=== PATIENT | female | born 1995 | race Caucasian/White ===

== ENCOUNTER 2019-01-08 18:51 | Observation (INO) | payer OTHER, SELFPAY ==
[2019-01-08] VITALS (10 sets, daily range): BP systolic 107–127; BP diastolic 52–79; PULSE 70–105; RESP 16–18; TEMP 35.7–36.7; O2SAT 95–100; BMI 31.6; BMI 30.9
--- NOTE | 2019-01-08 16:00 | APP_PTH ---
PATIENT: JUSTO PETTIT LOC: MS3 U#:[id number] AGE/SX: 23/F ROOM: MS305 RE01/08/[address]: Dr. Carmen Gasca MD : 1995 BED: 1 DIS: 01/09/2019 SPEC #: [id number] RECD: 01/11/19 08:42 STATUS: SHAMEKA RENanci #: [id number] LATOYA: 01/08/19 16:[address]: Carmen Gasca DEPT: SURGICAL PATHOLOGY RECD BY: Cezar Gloria ENTERED: 01/11/19 09:34 SP TYPE: APPENDIX OTHR DR: Dr. Jarred Becker DO Tissues: Appendix, NOS Procedures: Surgery Specimen Level III HEADER OPERATION: Laparoscopic, appendectomy PRE-OP DIAGNOSIS: Acute appendicitis TISSUE SUBMITTED: Appendix MICROSCOPIC DIAGNOSIS Appendix: Acute appendicitis and periappendicitis. MORALES:yamile 01/12/19 MICROSCOPIC DESCRIPTION Slides are reviewed. GROSS DESCRIPTION Received is one container labeled with the patient's name and designated appendix. The specimen consists of an appendix measuring 3.5 cm in length and 0.7 cm in diameter. The attached periappendiceal adipose tissue measures up to 3 cm in width. The serosa shows focal area of congestion. No obvious perforation is identified. The lumen does not contain any fecalith. Venereal Disease Control Head sections are submitted in one cassette. / SJ:yamile 01/11/19 TC:2 CPT: 70031
--- NOTE | 2019-01-08 16:48 | PCM.HP.BLA ---
History and Physical Date of Admission: 01/08/19 Herminia Pinon [facility] 1995 ? ? REFERRING PHYSICIAN: Trey Gonzalez (Microarray Specialist), AP* ? CHIEF COMPLAINT: appendicitis ? HPI: The patient is a 23 year old female presents with sudden onset of abdominal pain starting at MDNT yesterday. Awoke patient from sleep. Had accompanying symptoms of chills and nausea. Denies burning with urination. Denies blood in stools. Denies previous episode of such pain. Went for evaluation to urgent care and CT scan was ordered. CT scan revealed dilated thickened appendix, c/w appendicitis. Patient referred to this office for further evaluation/treatment. ? ? PAST MEDICAL HISTORY denies major medical illnesses ? PAST SURGICAL HISTORY ? [place] teeth removal ? PAST INJURIES Denies head injuries, had finger fracture, wrist sprain ? ? Current Outpatient Medications: cyclobenzaprine (FLEXERIL) 10 mg tablet Take 1/2 -1 tablet every 8 hours as needed (Patient not taking: Reported on 01/08/2019 albuterol HFA (VENTOLIN HFA) 90 mcg/actuation inhaler Inhale 2 Puffs as instructed every 4 hours as needed for Wheezing/Shortness of Breath. (Patient not FLUoxetine HCl (PROZAC) 40 mg capsule ? SPRINTEC 0.25-35 mg-mcg per tablet ? ? ? ALLERGIES: Seasonal Allergies ? 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 FAMILY HISTORY ? Stroke Maternal Grandfather ? ? Heart Paternal Grandmother ? ? ? REVIEW OF SYSTEMS: General: The patient denies fatigue, denies weight loss, NOTES weight gain, NOTES feeling hot, and denies feelings of cold. Eyes: The patient denies glaucoma, NOTES eye injury/surgery, wears glasses or contacts. Ear/Nose/Throat: The patient NOTES allergies, denies hayfever, denies ear infections, and NOTES bloody noses. Cardiovascular: The patient denies chest pain, denies heart disease, denies high blood pressure,denies cardiac stent, denies prior heart attack, denies irregular heart beat, denies high cholesterol, denies poor circulation, denies heart failure, other cardiac issues, denies claudication, denies cold feet, denies peripheral arterial stent. Respiratory: The patient denies tuberculosis, denies pneumonia, denies frequent cough, denies pulmonary embolism, denies shortness of breath, and denies coughing up blood. Gastrointestinal: The patient denies difficulty swallowing, denies acid reflux, denies ulcers, denies vomiting, denies jaundice/hepatitis, denies gallbladder problems, NOTES black or tarry stools, NOTES hemorrhoids, NOTES bleeding from rectum, denies diverticulitis, NOTES constipation, NOTES diarrhea, denies loss of stool control, and denies hernias. Kidney/Bladder: The patient denies kidney stones, denies urine infections, and denies bloody urine. Skin: The patient denies a history of skin cancer, NOTES bleeding/changing moles, and NOTES a history of skin rash. Neurologic: The patient denies a history of epilepsy/convulsions, denies headaches, denies head/spinal injuries, and denies stroke/TIA. Psychiatric: The patient denies psychiatric medications, denies depression, and denies voices, denies substance abuse. Endocrine: The patient denies thyroid disorders, denies diabetes, and NOTES hormonal problems. Hematologic: The patient denies a history of bruising, denies bleeding, and denies anemia, denies blood clots. Infections: The patient denies a history of measles and mumps, denies rheumatic fever, and denies sexually transmitted diseases. Musculoskeletal: The patient NOTES back pain/injury, denies back problems, denies sciatica, denies knee/foot trouble, NOTES arthritis, or denies gout. ? PHYSICAL EXAMINATION: General: The patient is 23 year old female, well nourished, well hydrated in no acute distress. The patient is oriented to time, place, and person. VITALS: Blood pressure 122/66, pulse 76, temperature 36.1 ?C (97 ?F), temperature source Temporal Artery, resp. rate 16, weight 83.5 kg (184 lb), SpO2 100 % Head ? Normocephalic. EOM intact with sclera clear and no icterus noted. Wearing glasses. Mouth with mucus membranes moist. Neck - supple with no jugular venous distention noted. Trachea is midline. No masses noted. Lungs ? clear to auscultation. Normal breath sounds. No rales/rhonchi/wheezing noted. No labored breathing noted, such as retractions. No cough heard. Heart ? normal S1 and S2 auscultated. No rubs/clicks/murmurs noted. Regular rate. Abdomen ? soft but tender in the right lower quadrant with rebound and guarding and positive Rovsing's sign, decreased bowel sounds Extremities ? no calf tenderness noted. No pitting edema noted. Skin ? normal skin integrity. Neurological ? gait normal, no focal deficits noted Psych ? calm and appropriate RADIOLOGIC STUDIES: As Noted ? ? IMPRESSION: right lower quadrant abdominal pain, abnormal appendix by CT scan ? ? PLAN: I have discussed the above with the patient. I have offered laparoscopic appendectomy I have explained the procedure to the patient. I have counseled the patient as to the risks of the procedure, including but not limited to: infection, bleeding, injury to any blood vessels/nerves, scar tissue, injury to any intrabdominal organs, injury to bowel/bladder, intraabdominal abscess/bleeding, hernias at incisional sites, wound infections, complications of anesthesia, etc. ? the patient understands. The patient wishes to proceed. I have answered all questions to the patient?s satisfaction and the patient has no further questions. . Diagnoses: (R10.31) Right lower quadrant abdominal pain (primary encounter diagnosis) (R93.3) Abnormal CT scan, gastrointestinal tract Return to Clinic: The patient is instructed to follow-up with me after the procedure.
[2019-01-08 16:52] LABS: Internal QC Validated? YES +Cl - CLEAR BKGD; Pregnancy, Urine Negative Negative
[2019-01-08] MEDS: Lactated Ringers 1,000 ML 75 ML IV ×2 (17:07→19:33)
--- NOTE | 2019-01-08 17:45 | OP.PCM_ITS ---
Report of Operation Date of Procedure: 01/08/19 Pre-Operative Diagnosis: right lower quadrant abdominal pain, abnormal appendix on CT scan Post-Operative Diagnosis: appendicitis Surgery/Procedure Performed:: laparoscopic appendectomy Description of Surgical Findings:: dilated grossly enlarged appendix with fibrinous exudate - not perforated, no purulent peritoneal fluid noted Type of Anesthesia:: General Anesthesiologist: Anthony Kaufman Specimen's removed: appendix Estimated Blood Loss (mL): < 5 ml Fluids Replaced: 700 ml RL Description of Procedure: After informed consent was obtained, the patient was brought into the Operating Room. Appropriate time out protocol was followed. She was then placed in the supine position on the operating table. The patient was then placed under general anesthesia. The patient?s abdomen was then prepped with a sterile surgical skin preparation and sterile surgical drapes were placed. The infraumbilical skin fold was grasped with penetrating clamps and the skin and subcutaneous tissues were infiltrated with 0.25% marcaine with epinephrine. A s kin incision was then made. A Veress needle was then inserted into the intraabdominal cavity and checked to be in the proper position with a normal saline drop test. A CO2 pneumoperitoneum was then created. Once this was achieved, the Veress needle was removed and a 5 mm trocar was placed in its stead. A 5 mm laparoscope was then inserted into the trocar. Careful examination of the intraabdominal contents was then done. There was no evidence of injury to any internal organs from placement of the Veress needle or the trocar. Under direct visualization, a 12mm suprapubic trocar and a 5mm left lower quadrant trocar was then placed into the intraabdominal cavity. The skin and subcutaneous tissues at these sites were first infiltrated with 0.25% marcaine with epinephrine. Attention was then directed to the right lower quadrant. The appendix was visualized. It was grossly distended and appeared inflamed and irritated. There was no purulent fluid noted. The mesentery of the appendix was taken down by cauterizing the tissue from the free edge to the base of the appendix with the Harmonic scalpel device. Once the base of the appendix was freed of surrounding tissues, then the linear gastrointestinal stapling device was brought into the abdominal cavity via the 12mm port and placed across the base of the appendix. The stapling device was fired, thus stapling across the base of the appendix and transecting it simultaneously. The appendix was then placed in an Endobag and this was brought out through the suprapubic trocar. The appendix was then forwarded to Pathology for analysis. The appendiceal stump was carefully examined. There was no evidence of any active bleeding or fecal leakage. The surrounding tissues were also examined and there was no evidence of any active bleeding or fecal/bile leakage. Surgicel was applied to the appendiceal stump. The intraabdominal cavity was examined and there was no evidence of further inflammation or tissue abnormality. There was no evidence of any peritoneal fluid. The CO2 pneumoperitoneum was released and all trocars were removed intact. The suprapubic fascia was reapproximated with a figure-of-8 vicryl suture. All skin incisions were reapproximated with monocryl suture. Cavilon and steristrips were applied to reinforce skin closure and proper sterile dressings were placed. The patient was then extubated and brought to the Recovery Room in stable condition. - Complications none noted - Admit VTE Documentation VTE Present on Admission: Yes VTE Mechan Device Prophylaxis: SCD's
[2019-01-08] MEDS: Bupiv/Epi 0.25% 30 ML Vial (18:30)
--- NOTE | 2019-01-08 18:44 | DCINST_ITS ---
Discharge Diet: No Restrictions - drink plenty of fluids, avoid carbonated beverages for a couple of days Discharge Activity: Return to Normal Activity, May not drive while taking narcotic pain medications. Lifting Restrictions: no lifting/pushing/pulling greater than 20 pounds for 2 weeks Additional Activity Instructions:: ambulating/walking is encouraged. RETURN TO WORK - may return to work in several days or take up to two weeks off work Call your doctor if your incision/area has: Continuous Slow Oozing, Foul Smelling Discharge Call your doctor if you observe: Fever of 101 or Higher Additional Dressing/Incision Instructions:: Leave dressings in place. May get wet in the shower. do not soak - no tub baths/swimming Additional Instructions: Recommend pain medication regimen: take 650 mg of acetaminophen (Tylenol) then in three hours take 600 mg ibuprofen (Motrin), then in three hours take 650 mg acetaminophen, then in three hours take 600 mg ibuprofen, and so on Take narcotic pain medications for breakthrough pain and at night Medications to take at Discharge Fluoxetine HCl 40 mg PO DAILY 01/08/19 Hydrocodone Bitart/Apap 5-325 [[place] 5MG-325MG] 1 tab PO Q8H PRN PRN 5 Days #15 tab 01/08/19 Multivitamin with Minerals [Multiple Vitamin] 1 ea PO DAILY 01/08/19 Norgestimate-Ethinyl Estradiol [Previfem] 1 tab PO DAILY 01/08/19 Allergies/Adverse Reactions: Allergies No Known Allergies Allergy (Verified 01/08/19 16:35) The following prescriptions were given: Hydrocodone Bitart/Apap 5-325 [[place] 5MG-325MG] 1 tab PO Q8H PRN PRN 5 Days #15 tab PRN Reason: Mod-Severe Pain (-02/11) Prescription Printed Primary Care Physician: Jarred Becker DO [Primary Care Provider] - Test Results: Test results from this visit will be discussed in further detail at your follow- up appointment, if applicable. Please Follow Up With: Carmen Gasca MD - call When: to be seen in 7-10 days, please call for date and time, thank you
[2019-01-08] MEDS: Morphine 4 MG/ML Syringe IV (20:29)
[2019-01-08] MEDS: HYDROcodone Bitartrate/Apap 5/325 Tablet PO (20:54)
[2019-01-09 00:10] VITALS: BP 97/48; PULSE 89; RESP 16; TEMP 36.7; O2SAT 96
[2019-01-09] MEDS: HYDROcodone Bitartrate/Apap 5/325 Tablet PO ×2 (01:23→07:59)
[2019-01-09 05:00] VITALS: BP 109/61; PULSE 78; RESP 16; TEMP 36.7; O2SAT 99
[2019-01-09 07:45] VITALS: BP 108/66; PULSE 63; RESP 18; TEMP 36.6; O2SAT 100
[2019-01-09] MEDS: Ibuprofen 600 MG Tablet PO (07:58)
== END 2019-01-09 09:52 | disposition home or self-care (01) ==
LOC: SDC 01-11 10:21 → MS3 01-11 10:21
PROVIDERS: Anesthesiology; Admitting Provider Surgery; Family Provider Preventive Medicine Occupational Medicine; PCP Preventive Medicine Occupational Medicine; Referring Provider Surgery; Visit Provider Surgery
PROC: 0DTJ4ZZ Resection of Appendix, Percutaneous Endoscopic Approach (ICD-10-PCS; CPT 44970; principal; 2019-01-08 15:40)
DX: K35.80 Unspecified acute appendicitis (principal); F41.9 Anxiety disorder, unspecified; F32.9 Major depressive disorder, single episode, unspecified; J45.909 Unspecified asthma, uncomplicated
CPT/HCPCS: 44970; 81025; 88304; 96361; 96374; J7120; J2405

== ENCOUNTER → 2019-03-22 10:07 | Outpatient (CLI) | payer OTHER, SELFPAY ==
[2019-01-08 19:53] VITALS: BMI 30.9
[2019-03-22 12:44] LABS: Internal QC Validated? YES +Cl - CLEAR BKGD; Pregnancy, Serum, hCG Quali. NEGATIVE Negative
[2019-03-22 13:21] LABS: Ferritin 44 ng/mL (8-252); Follicle Stimulating Hormone 6.4 mIU/mL; T4 Free Direct 0.93 ng/dL (0.76-1.46); Thyroid Stim Hormone (TSH) 1.54 uIU/mL (0.358-3.74)
[2019-03-25 12:07] LABS: Testosterone, % Free 1.28 % (0.50-2.80); Testosterone, Free 0.35 ng/dL (0.10-0.85); Testosterone, Total 27 ng/dL (8-48); Thyroid Peroxidase AB 16 IU/mL (0-34)
[2019-03-25 13:39] LABS: Androstenedione 64 ng/dL (41-262); Sex Hormone-binding Globulin 131.2 nmol/L (24.6-122.0)
== END ==
PROVIDERS: Family Provider Family Medicine; PCP Family Medicine; Referring Provider Dermatology Pediatric Dermatology; Visit Provider Dermatology Pediatric Dermatology
DX: L30.9 Dermatitis, unspecified (principal); L64.8 Other androgenic alopecia; Q83.3 Accessory nipple
CPT/HCPCS: 36415; 82157; 82627; 82728; 83001; 84270; 84402; 84403; 84439; 84443; 84703; 86376; 82626

== ENCOUNTER 2019-12-15 17:59 | Emergency (ER) | payer OTHER, SELFPAY ==
[2019-01-08 19:53] VITALS: BMI 30.9
[2019-12-15 18:01] VITALS: BP 137/80; PULSE 87; RESP 15; TEMP 37; O2SAT 98; BMI 35.6
--- NOTE | 2019-12-15 18:16 | ED.DCSUM_ITS ---
History of Present Illness Chief Complaint: Bite Informant: Patient Narrative: Patient is a previously healthy 24-year-old female who presents to the emergency department for cat bite. 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 She states she was holding a cat during x-rays. The cat reached back and bit her right thumb. The cat latched on and they were having a difficult time getting it off. She is having pain in the thumb. Denies any loss of sensation. No foreign body sensation. No issues with moving the thumb. There are 2 puncture wounds present. Bleeding controlled prior to arrival in the emergency department. Denies any other injury. The thumb was wrapped. States that she rinsed out the thumb for a long time as well as put iodine solution on it. She denies any systemic symptoms. She denies being a diabetic. No immunosuppression noted. Past Medical History - Allergies and Home Meds Allergies/Adverse Reactions: Allergies No Known Allergies Allergy (Verified 01/08/19 16:35) Primary Care Physician: Angel Juan III, MD [Primary Care Provider] - Prior records reviewed: Yes Past Medical History: None Smoking Status: Never smoker Drugs: None Review of Systems All systems negative except as indicated General: Denies: Chills, Fever ENT: Denies: Rhinorrhea Cardiovascular: Denies: Chest pain Respiratory: Denies: Dyspnea, Cough Gastrointestinal: Denies: Abdominal pain, Nausea, Vomiting Musculoskeletal: Reports: Swelling, Extremity Pain. Denies: Neck pain, Back pain Skin: Reports: Wounds Neurological: Denies: Weakness, Parasthesia, Numbness Hematologic: Denies: Easy bruising, Easy bleeding Physical Exam Vital Signs/Narrative: Vital Signs Temp Pulse Resp BP Pulse Ox 12/15/19 18:01 98.6 F 87 15 137/80 H 98 Inital Vital Signs reviewed: Yes General: Well nourished, Well developed Head: Normocephalic, Atraumatic Eyes: Perrl, EOMI ENT: Moist mucous membranes Neck: Supple Cardiovascular: Regular rate, Regular rhythm Respiratory: No distress, CTA bilaterally Abdomen: Nondistended Back: Nontender Extremities: - - 2 puncture wounds to the pad of the right thumb. No active bleeding present. Has full range of motion. Foreign body is palpable. Sensation intact. Brisk capillary refill. Joint swelling. Skin: Normal color Neurological: Alert, Oriented x3 Psychological: Normal affect, Normal Mood Diagnostic/Tx/Re-eval - Medical Decision Making Patient presents to the emergency department for cat bite to right thumb. 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 Upon arrival to the ED vital signs within normal limits. She does have the 2 puncture wounds to the right thumb. Will treat with prophylactic antibiotics with Augmentin. Wound is cleaned with water and chlorhexidine. Biotic ointment placed over top of it and Band-Aid applied. She is to monitor for evidence of infection. Warning signs and symptoms for which to return to the emergency department including developing any significant joint pain with movement, swelling of the thumb, overlying warmth or erythema, streaking up the arm or developing any systemic symptoms are reviewed. She otherwise is to follow-up with her PCP. She understands and is agreeable this plan. Will discharge home in stable condition. ED Disposition - Plan for ED Patient: Disposition: Home or Assisted Living Diagnosis: Cat bite of right thumb Instructions: ED Bite Cat Prescriptions: Amox/Clavulanate Tablet [Augmentin Tablet] 875 mg PO Q12H 7 Days #14 tab Prescription Printed Referrals: Angel Juan III, MD [Primary Care Provider] -
[2019-12-15 19:10] VITALS: BP 126/75; PULSE 79; RESP 16
== END 2019-12-15 19:15 | disposition home or self-care (01) ==
LOC: ED 18:43
PROVIDERS: Emergency Provider Emergency Medicine; PCP Family Medicine
DX: S61.051A Open bite of right thumb without damage to nail, initial encounter (principal); S61.031A Puncture wound without foreign body of right thumb without damage to nail, initial encounter; W55.01XA Bitten by cat, initial encounter; Y93.K9 Activity, other involving animal care; Y92.89 Other specified places as the place of occurrence of the external cause; Y99.0 Civilian activity done for income or pay
CPT/HCPCS: 99282

== ENCOUNTER 2024-05-10 08:45 | Emergency (ER) | payer OTHER, SELFPAY ==
[2024-05-10 08:46] VITALS: BP 88/73; PULSE 103; RESP 16; TEMP 36.6; O2SAT 98; BMI 34.1
--- NOTE | 2024-05-10 08:53 | EX.ED.DYSGE1 ---
HPI History of Present Illness Chief Complaint: Nausea/Vomiting Detail of Chief Complaint: Nausea vomiting due to . Informant: patient and PCP (R[facility] [employer] called and per patient) Onset/Context/Timing Onset: Weeks (Nausea started May 01. Vomiting started approximately May 04) Context: Sudden Onset Timing: Continuous (With respect to the nausea) and Intermittent (With respect to the vomiting) Quality: Nausea and vomiting for the past several days Location: Hyperemesis gravidarum Current Severity: Moderate Maximum Severity: Moderate Worsened by: Relieved by: Nothing Associated Symptoms Associated Symptoms: Lightheadedness, thirst, dry mouth Narrative Narrative: Patient is a 28-year-old G1, P0 AB 0 woman who is approximately 8 weeks gestation who was sent in because of persistent nausea and vomiting. Last episode of nausea and vomiting had mild blood streaks noted. She denies black or maroon-colored stool. She denies coffee-ground emesis. She does endorse thirst, dry mouth and lightheadedness with standing. She did have streaks of blood last emesis. Patient denies fever, chills night sweats. She denies headache, visual, ocular auditory symptoms. She denies paresthesia, anesthesia or motor weakness. Prior similar symptoms: No Recent Illness/Hospitalization: No PFSH [facility] Medical History (Updated 05/10/24 @ 14:[address] Gael Salinas MD) Seasonal allergies Home Medications ?Medication ?Instructions ?Recorded ?Last Taken ?Type fluoxetine 40 mg capsule 40 mg PO DAILY 01/08/19 Unknown History multivitamin with minerals 1 ea PO DAILY 01/08/19 Unknown History norgestimate 0.25 mg-ethinyl 1 tab PO DAILY 01/08/19 Unknown History estradiol 35 mcg tablet ondansetron 4 mg disintegrating 4 mg PO Q8H PRN PRN Nausea #20 tabs 05/10/24 Unknown Rx tablet promethazine 25 mg rectal 25 mg UT Q6H PRN PRN Nausea #6 supp 05/10/24 Unknown Rx suppository (Promethegan) Allergy/AdvReac Type Severity Reaction Status Date / Time No Known Allergies Allergy Verified 12/23/19 07:17 Surgical History History of appendectomy History of wisdom tooth extraction Social History (Updated 05/10/24 @ 09:[address] Gael Salinas MD) household members: spouse Smoking Status: Never smoker ROS ROS ED Constitutional Constitutional ED: Denies chills, fever(s) or subjective Eyes Eyes: Denies blurry vision or change in vision ENT ENT ED: Denies rhinorrhea or sore throat Cardiovascular Cardiovascular: Denies chest pain or palpitations Respiratory/Chest Respiratory/Chest: Denies cough, dyspnea or dyspnea on exertion Gastrointestinal Gastrointestinal: Reports nausea, vomiting and other Details: Further detailed HPI narrative ; Denies abdominal pain, constipation, diarrhea or melena Genitourinary Genitourinary ED: Reports other Details: Patient endorses decreased urine output ; Denies dysuria, hematuria or urinary frequency Musculoskeletal Musculoskeletal: Denies arthralgias or myalgias Integumentary Denies rash Neurologic Neurologic: Denies headache(s) Hematologic/Lymphatic Hematologic/Lymphatic: Reports systems reviewed and no addt'l complaints, except as documented EXAM Physical Exam Const Vital Signs: 05/10/24 08:46 05/10/24 10:46 05/10/24 12:00 Temperature 97.9 F Temperature Source Temporal Pulse Rate 103 H 73 79 Respiratory Rate 16 18 20 H Blood Pressure 88/73 L 104/58 L 111/61 Blood Pressure Mean 78 73 77 Pulse Ox 98 98 98 Oxygen Delivery Method Room Air Room Air Room Air Positive well nourished and well developed Constitutional Narrative: BMI is 34.2. She appears slightly pale. Blood pressure is low. This was obtained when she was sitting out in triage. Blood pressure supine is 117. This would be consistent with orthostatic hypotension and reason she endorsed lightheadedness with standing. General Appearance ED: well developed, NAD and pallor; Negative for cyanotic or diaphoretic HEENT Reports dry mucous membranes HEENT Narrative: Head is atraumatic and normocephalic. Ears normal. Nares patent. Posterior pharynx is normal. Mouth ED: Yes dry mucous membranes Mouth: dry mucous membranes Eyes PERRL and EOMs intact bilaterally General Eye ED: Negative for pale conjunctiva or scleral icterus Neck no lymphadenopathy, supple and no JVD Resp normal respiratory effort and clear to auscultation bilaterally Cardio regular rhythm, S1 normal heart sound, S2 normal heart sound and no murmurs Rate: tachycardic GI normal to inspection, nondistended, normoactive bowel sounds, non-tender, non-distended and no masses; Negative for hepatosplenomegaly Back/Spine no CVA tenderness Extremity normal to inspection General Extremety ED: Negative for edema or tenderness General Extremity: Negative for edema Neuro oriented x3 and CN's II-XII intact bilaterally Neuro Narrative: Moves all extremities. Sensorium / Orientation: alert Psych mental status grossly normal Skin no rashes or lesions noted, no wounds and skin turgor normal General Skin Exam: pallor; Negative for jaundice MDM MDM MDM Narrative Medical decision making narrative: Patient presents with hyperemesis gravidarum. Clinically she is dehydrated with orthostatic hypotension. IV was established and received 1 L of normal saline. She was treated with Reglan since she is taking Zofran at home with no effect. Patient's history of vomiting with streaks of blood is consistent with Millie-Lo tear. Since she does not have black stool and this occurred after vomiting several times there is no need in my opinion at this time to place an NG to determine if she is actively bleeding. She was told this is a self-limiting issue 99% of the time. Urine was obtained to assess ketones and specific gravity. Lab Data Attestation: I reviewed the patient's lab results. Lab results narrative: Urine reveals ketones. Patient does have pyuria with bacteria. Since she is culture was sent and she was placed on cephalexin. When I went to assess patient she is actively vomiting and. She will receive the cephalexin. Will give dose of Rocephin and treat her nausea and vomiting with 25 mg of Benadryl mixed with 25 mg of Thorazine. Labs: Laboratory Results - last 24 hr 05/10/24 10:25 Urine Color Yellow Urine Clarity Sl. Cloudy Urine pH 6.5 Ur Specific [place] 1.015 Urine Protein 30 H Urine Glucose (UA) Normal Urine Ketones 150 A* Urine Occult Blood Negative Urine Nitrite Negative Urine Bilirubin 1 H Urine Urobilinogen 1 H Ur Leukocyte Esterase 500 H Urine RBC 0 SEEN Urine WBC 5-10 SEEN Ur Squamous Epith Cells 0-5 SEEN Urine Bacteria 1+ Urine Mucus 1+ Treatment and Re-Evaluation :: Nurse practitioner Светлана called in prior to patient's arrival. Deforms the patient had nausea vomiting. She is on Zofran. Concern was because she had some streaks of blood in emesis. Patient was reassessed at 1011. Her nausea has improved. She was informed of plan. Comments:: Patient was reassessed at 1354. She is sitting upright smiling. She has passed p.o. challenge. Will discharge with prescription for Zofran ODT, Compazine suppositories and appropriate home-going directions. Discharge Plan Triage Chief Complaint: Nausea/Vomiting Other Complaint: ED Provider: Gael Salinas Dx/Rx/DC Orders Clinical Impression: Hyperemesis gravidarum, Millie-Lo syndrome, Ketosis, Sinus tachycardia, Orthostatic hypotension, Hypovolemia Instructions: Millie-Lo Tear, ED Hyperemesis Gravidarum Prescriptions: New ondansetron 4 mg tablet,disintegrating 4 mg PO Q8H PRN PRN (Reason: Nausea) Qty: 20 0RF promethazine [Promethegan] 25 mg suppository 25 mg UT Q6H PRN PRN (Reason: Nausea) Qty: 6 0RF No Action fluoxetine 40 MG capsule 40 mg PO DAILY Patient Comments: TAKE 1 CAPSULE BY MOUTH EVERY DAY norgestimate-ethinyl estradiol 1 TABLET tablet 1 tab PO DAILY Patient Comments: TAKE 1 TABLET BY MOUTH EVERY DAY multivitamin with minerals 1 EACH tablet 1 ea PO DAILY Primary Care Provider: Светлана Srinivasan NP Referrals: Светлана Srinivasan NP, [employer] [Primary Care Provider] - As Needed Print Language: Peruvian Disposition Disposition: Home, Self Care
[2024-05-10] MEDS: Metoclopramide 10 MG/2 ML Vial 5 MG IV (09:24)
[2024-05-10] MEDS: 0.9% Normal Saline (1000mL) 1,000 ML 1000 ML IV (09:24)
[2024-05-10 10:36] LABS: Red Blood Cells-Urine 0 SEEN /hpf (0-5)
[2024-05-10 10:38] LABS: Color, Urine Yellow (Yellow); Glucose, Dipstick Normal (Normal); Leukocyte Esterase-Dipstick 500 /ul (Negative); Nitrite-Dipstick Negative (Negative); Occult Blood-Urine Negative /ul (Negative); Protein-Dipstick 30 mg/dl (Negative); Specific Gravity, Urine 1.015 (1.002-1.030); Urine Bilirubin Dipstick 1 mg/dL (Negative); Urine Clarity Sl. Cloudy (Clear); Urine Urobilinogen 1 mg/dl (Normal); Urine pH 6.5 (5.0 - 8.0)
[2024-05-10 10:39] LABS: Ketone-Dipstick 150 mg/dl (Negative)
[2024-05-10 10:46] VITALS: BP 104/58; PULSE 73; RESP 18; O2SAT 98
[2024-05-10 10:48] LABS: Bacteria 1+ /hpf (None Seen); Mucous, Urine 1+ /hpf (<or=2+); Squamous Epithelial Cells - UA 0-5 SEEN /hpf (5-10); White Blood Cells 5-10 SEEN /hpf (0-5)
[2024-05-10 12:00] VITALS: BP 111/61; PULSE 79; RESP 20; O2SAT 98
[2024-05-10] MEDS: DiphenhydrAMINE 25 MG, ChlorproMAZINE IM 25 MG in 0.9% Normal Saline (100mL Bag) 100 ML 203 MG IV (12:17)
[2024-05-10 14:00] VITALS: BP 106/78; PULSE 78; RESP 16; TEMP 37.1; O2SAT 98
[2024-05-10] MEDS: Cephalexin 250 MG Capsule 500 MG PO (14:22)
== END 2024-05-10 14:37 | disposition home or self-care (01) ==
PROVIDERS: Emergency Provider Emergency Medicine; PCP Registered Nurse; Visit Provider Emergency Medicine
DX: O21.1 Hyperemesis gravidarum with metabolic disturbance (principal); E88.89 Other specified metabolic disorders; O99.611 Diseases of the digestive system complicating pregnancy, first trimester; K22.6 Gastro-esophageal laceration-hemorrhage syndrome; O99.281 Endocrine, nutritional and metabolic diseases complicating pregnancy, first trimester; O26.891 Other specified pregnancy related conditions, first trimester; R00.0 Tachycardia, unspecified; O99.411 Diseases of the circulatory system complicating pregnancy, first trimester; I95.1 Orthostatic hypotension; E86.1 Hypovolemia; Z3A.08 8 weeks gestation of pregnancy
CPT/HCPCS: 81001; 87086; 87088; 96361; 96365; 96375; 99284

== ENCOUNTER 2024-06-18 09:29 | Emergency (ER) | payer OTHER, SELFPAY ==
[2024-06-18 09:29] VITALS: BP 115/59; PULSE 71; RESP 14; TEMP 36.6; O2SAT 100; BMI 33.3
--- NOTE | 2024-06-18 09:48 | ED.VIS.GI ---
HPI HPI - GI History of Present Illness Chief Complaint: Nausea/Vomiting Informant: patient Nausea/Vomiting/Emesis GI Symptom: Positive for Nausea and Vomiting Onset: Weeks Severity: Mild Diarrhea/Melena/Hematochezia GI Symptom: Negative for Diarrhea, Melena or Hematochezia Associated Symptoms Associated Symptoms: Negative for Dysuria, Frequency or Urgency Narrative Narrative: 28-year-old female G1, P0 Ab0 approximately 14 weeks . Due date is mid December. Seeing the [facility]. She has had nausea and vomiting intermittently for weeks. Denies any fever. No diarrhea. No dysuria. She came into day for nausea medication and IV fluids. Denies any abdominal pain. No vaginal bleeding. Otherwise the is going well. Prior similar symptoms: Yes Recent Illness/Hospitalization: No PFSH PFSH Medical History Seasonal allergies Home Medications ?Medication ?Instructions ?Recorded ?Last Taken ?Type fluoxetine 40 mg capsule 40 mg PO DAILY 01/08/19 Unknown History multivitamin with minerals 1 ea PO DAILY 01/08/19 Unknown History norgestimate 0.25 mg-ethinyl 1 tab PO DAILY 01/08/19 Unknown History estradiol 35 mcg tablet cephalexin 500 mg capsule 500 mg PO Q6 #28 CAPSULES 05/10/24 Unknown Rx ondansetron 4 mg disintegrating 4 mg PO Q8H PRN PRN Nausea #20 tabs 05/10/24 Unknown Rx tablet promethazine 25 mg rectal 25 mg SD Q6H PRN PRN Nausea #6 supp 05/10/24 Unknown Rx suppository (Promethegan) ondansetron 4 mg disintegrating 4 mg PO Q6H PRN nausea and 06/18/24 Unknown Rx tablet vomiting #14 tabs Allergy/AdvReac Type Severity Reaction Status Date / Time No Known Allergies Allergy Verified 06/18/24 09:30 Family History no significant family his Surgical History History of appendectomy History of wisdom tooth extraction Social History household members: spouse Smoking Status: Never smoker ROS ROS ED ROS Narrative Nausea and vomiting. No abdominal pain. No dysuria. No fever. No diarrhea. Constitutional Constitutional ED: Denies chills or fever(s) ENT ENT ED: Denies ear pain Cardiovascular Cardiovascular: Denies chest pain Respiratory/Chest Respiratory/Chest: Denies cough Gastrointestinal Gastrointestinal: Reports nausea and vomiting; Denies abdominal pain, constipation, diarrhea or melena Genitourinary Genitourinary ED: Denies dysuria or hematuria Musculoskeletal Musculoskeletal: Denies arthralgias or back pain Integumentary Denies abscess Neurologic Neurologic: Denies headache(s) Psychiatric Psychiatric: Denies anxiety Endocrine Endocrinology: Denies polydipsia Hematologic/Lymphatic Hematologic/Lymphatic: Denies easy bleeding, easy bruising or lymphadenopathy Allergic/Immunologic Allergic/Immunologic ED: Denies mouth swelling, tongue swelling or urticaria EXAM Physical Exam Narrative Exam Narrative: 28-year-old female vital signs stable afebrile. Sitting upright in bed. No distress. H EENT exam pupils round reactive light. Dry mucous membranes. Neck nontender no lymphadenopathy. Lungs clear to auscultation bilaterally. Heart regular rhythm rate about 70 no murmur. Abdomen soft, nontender, nondistended normal bowel sounds without peritoneal signs. Gravid nontender uterus. Moving all 4 extremities. Nontender no edema. Normal strength. Back nontender. Neurologically she is awake alert no focal motor deficits. Const Vital Signs: 06/18/24 09:29 Temperature 98 F Temperature Source Temporal Pulse Rate 71 Respiratory Rate 14 Blood Pressure 115/59 L Blood Pressure Mean 77 Pulse Ox 100 Oxygen Delivery Method Room Air Positive well nourished and well developed; Negative for cachectic, contractures or unkempt General Appearance ED: well developed and NAD; Negative for unkempt, cachectic, contractures or pallor Nutritional Appearance: Negative for cachectic HEENT Reports dry mucous membranes normocephalic and atraumatic; Negative for trauma or tenderness Mouth ED: Yes dry mucous membranes Mouth: dry mucous membranes Eyes PERRL and EOMs intact bilaterally General Eye ED: Negative for pale conjunctiva or scleral icterus Neck no lymphadenopathy, supple and no JVD General: Negative for tenderness Lymph Lymphatic: Negative for other Resp normal respiratory effort and clear to auscultation bilaterally Effort and Inspection: Negative for respiratory distress Auscultation: Negative for rales, rhonchi, wheezes or diminished lung sounds Cardio regular rate, regular rhythm, S1 normal heart sound, S2 normal heart sound and no murmurs Rate: Negative for bradycardia or tachycardic Rhythm: Negative for abnormal rhythm GI non-tender, non-distended and no masses Inspection: Negative for abdominal distention Auscultation: normoactive bowel sounds Palpation: soft; Negative for tender, guarding or rebound tenderness present Back/Spine no CVA tenderness General Back: Negative for CVA tenderness Cervical Spine: Negative for cervical spine tenderness Thoracic Spine / Upper Back: Negative for thoracic spinal tenderness Lumbar Spine / Lower Back: Negative for lumbar spinal tenderness Extremity full ROM General Extremety ED: Negative for edema or tenderness General Extremity: Negative for edema Neuro CN's II-XII intact bilaterally and moves all extremities Sensorium / Orientation: alert, oriented to person, oriented to place and oriented to time; Negative for orientation impaired or confused Motor Exam: strength 5/5 throughout Psych mental status grossly normal and thought process normal Appearance: Negative for unkempt Attitude: No agitated Mood & Affect: Negative for depressed, anxious or tearful Skin no wounds General Skin Exam: Negative for jaundice or pallor Lesions: no lesions Rashes: no rashes Trauma: Negative for abrasion Nails: Negative for discolored MDM MDM MDM Narrative Medical decision making narrative: 28-year-old female nausea vomiting for trimester . Clinically looks good. Abdomen benign. Should be treated with Zofran for nausea. A liter normal saline. Check her chemistries. And then she will be reassessed. P.o. fluids prior to discharge. While at 11:20 a.m.Repeat exam patient is doing 5 AM. Nausea resolved with Zofran. She is feeling better and comfort being discharged home. Abdomen is benign. History & Record Review Additional record(s) reviewed:: Prior inpatient record, Prior outpatient record, Prior ED visit and Prior labs Lab Data Attestation: I reviewed the patient's lab results. Lab results narrative: BMP shows no acute abnormality. Gap 7. Normal BUN of 7 creatinine 0.6. Glucose 83 Labs: Laboratory Results - last 24 hr 06/18/24 10:10 Sodium 138 Potassium 3.8 Chloride 107 Carbon Dioxide 25.0 Anion Gap 7 BUN 7 Creatinine 0.66 Estim Creat Clear Calc 136.19 Est GFR (MDRD) Af Amer 135 Est GFR (MDRD) Non-Af 112 BUN/Creatinine Ratio 10.5 Glucose 83 Calcium 9.3 Discharge Plan Triage Chief Complaint: Nausea/Vomiting ED Provider: Stanislaw Weber Dx/Rx/DC Orders Clinical Impression: Hyperemesis gravidarum Instructions: ED Hyperemesis Gravidarum Prescriptions: New ondansetron 4 mg tablet,disintegrating 4 mg PO Q6H PRN (Reason: nausea and vomiting) Qty: 14 0RF No Action fluoxetine 40 MG capsule 40 mg PO DAILY Patient Comments: TAKE 1 CAPSULE BY MOUTH EVERY DAY norgestimate-ethinyl estradiol 1 TABLET tablet 1 tab PO DAILY Patient Comments: TAKE 1 TABLET BY MOUTH EVERY DAY multivitamin with minerals 1 EACH tablet 1 ea PO DAILY ondansetron 4 mg tablet,disintegrating 4 mg PO Q8H PRN PRN (Reason: Nausea) Qty: 20 0RF promethazine [Promethegan] 25 mg suppository 25 mg SD Q6H PRN PRN (Reason: Nausea) Qty: 6 0RF cephalexin 500 mg capsule 500 mg PO Q6 Qty: 28 0RF Primary Care Provider: Светлана Srinivasan NP Referrals: Светлана Srinivasan NP, [facility] [Primary Care Provider] - As Needed Activity Restrictions/Additional Instructions: Plenty of fluids and rest. Slowly increase your diet as tolerated. Zofran as needed for nausea. Follow-up with your [employer] group as needed. Print Language: Malawian Disposition Disposition: Home, Self Care
[2024-06-18] MEDS: 0.9% Normal Saline (1000mL) 1,000 ML 1000 ML IV (10:12)
[2024-06-18] MEDS: Ondansetron 4 MG/2 ML Vial IV (10:12)
[2024-06-18 10:33] LABS: Anion Gap 7 (5-15); BUN 7 mg/dL (7-18); BUN/Creat Ratio 10.5 RATIO (10-20); Calcium,Total 9.3 mg/dL (8.5-10.1); Chloride 107 mmol/L (98-107); Creatinine, Serum 0.66 mg/dL (0.55-1.02); EST Glomerular Filtration Rate 112 mL/min (>60); Est Glom Filt Rate - Afr Amer 135 mL/min (>60); Estimated Creatinine Clearance 136.19 ml/min; Glucose 83 mg/dL (74-106); Potassium 3.8 mmol/L (3.5-5.1); Sodium Level 138 mmol/L (136-145)
[2024-06-18 11:32] VITALS: BP 123/78; PULSE 78; RESP 18; TEMP 36.8; O2SAT 97
== END 2024-06-18 11:35 | disposition home or self-care (01) ==
LOC: ED 10:02
PROVIDERS: Emergency Provider Emergency Medicine; PCP Registered Nurse; Visit Provider Emergency Medicine
DX: O21.0 Mild hyperemesis gravidarum (principal); Z3A.14 14 weeks gestation of pregnancy
CPT/HCPCS: 80048; 96361; 96374; 99282; J2405

== ENCOUNTER 2024-12-09 07:34 | Inpatient (IN) | payer OTHER, SELFPAY ==
[2024-12-09] VITALS (52 sets, daily range): BP systolic 112–153; BP diastolic 63–89; PULSE 60–114; RESP 13–18; TEMP 36.2–37.2; O2SAT 82–100; BMI 35.0
--- OUTSIDE RECORDS SUMMARY | 2024-12-09 06:31 | XMS RPT_ITS | CCD ---
Author Organization [facility] Care Team Providers Care Printed Circuit Board Preassembler Name Role Phone Mahad Riley Unavailable Unavail able Unavailable Primary Care Provider Unavailabl e Haagen SECURITY OPERATIONS CENTER ANALYST.PATTERN MARKING SUPERVISOR, Светлана Primary Care Provider [facility]agen SECURITY OPERATIONS CENTER ANALYST.PATTERN MARKING SUPERVISOR, Светлана Primary Care Provider Haagen SECURITY OPERATIONS CENTER ANALYST.PATTERN MARKING SUPERVISOR, Светлана Primary Care Provider Haagen SECURITY OPERATIONS CENTER ANALYST.PATTERN MARKING SUPERVISOR, Светлана Primary Care Provider Haagen SECURITY OPERATIONS CENTER ANALYST.PATTERN MARKING SUPERVISOR, Светлана Primary Care Provider Haagen SECURITY OPERATIONS CENTER ANALYST.PATTERN MARKING SUPERVISOR, Светлана Primary Care Provider Suppan SECURITY OPERATIONS CENTER ANALYST.PATTERN MARKING SUPERVISOR, Juliette A Unavailable [phone] Matt Rao MD Unavailable Suppan SECURITY OPERATIONS CENTER ANALYST.PATTERN MARKING SUPERVISOR, Juliette A Unavailable Suppan SECURITY OPERATIONS CENTER ANALYST.DANICA, Juliette A Unavailable [phone] Matt Rao MD Unavailable Haagen DIAMOND DIE POLISHER, Светлана Primary Care Unavailable Emilee Rose Attending Unavailable Emilee Rose Admitting Unavailable Gael Salinas Attending Unavailable Haagen DIAMOND DIE POLISHER, Светлана Primary Care Unavailable Haagen DIAMOND DIE POLISHER, Светлана Primary Care Unavailable Stanislaw Weber Attending Unavailable HAAGEN, СВЕТЛАНА Primary Care Unavailable DYAN COREY Attending Unavailable HAAGEN, СВЕТЛАНА Primary Care Unavailable HAAGENСВЕТЛАНА Attending Unavailable HAAGEN, СВЕТЛАНА Referring Unavailable HAAGEN, СВЕТЛАНА Primary Care Unavailable DYAN COREY Referring Unavailable DYAN COREY Attending Unavailable HAAGEN, СВЕТЛАНА Primary Care Unavailable EMILEE ROSE Referring Unavailable HAAGEN, СВЕТЛАНА Primary Care Unavailable HAAGEN, СВЕТЛАНА Primary Care Unavailable ROSE, EMILEE Attending Unavailable HAAGEN, СВЕТЛАНА Primary Care Unavailable ROSE, EMILEE Referring Unavailable DYAN COREY J Attending Unavailable MARYANA DYAN J Referring Unavailable HAAGEN, СВЕТЛАНА Primary Care Unavailable CANDIS BAEZ Attending Unavailabl e HAAGEN, СВЕТЛАНА Primary Care Unavailable HAAGEN, СВЕТЛАНА Primary Care Unavailable KENDY COLLINS Attending Unavailable ROSE, EMILEE Referring Unavailable HAAGEN, СВЕТЛАНА Primary Care Unavailable ROSE, EMILEE Referring Unavailable HAAGEN, СВЕТЛАНА Primary Care Unavailable ROSE, EMILEE Referring Unavailable NAYELI BOWMAN Attending Unavailable RAJGURU, DYAN J Referring Unavailable RAJGURU, DYAN J Attending Unavailable HAAGEN, СВЕТЛАНА Primary Care Unavailable HAAGEN, СВЕТЛАНА Primary Care Unavailable ROSE, EMILEE Referring Unavailable HAAGEN, СВЕТЛАНА Primary Care Unavailable DENISA BENTLEY Attending Unavailable HAAGEN, СВЕТЛАНА Primary Care Unavailable ROSE, EMILEE Referring Unavailable ESTHER MILLIGAN Attending Unavail able HAAGEN, СВЕТЛАНА Primary Care Unavailable ROSE, EMILEE Referring Unavailable KENDY COLLINS Attending Unavailable HAAGEN, СВЕТЛАНА Primary Care Unavailable ROSE, EMILEE Referring Unavailable HAAGEN, СВЕТЛАНА Primary Care Unavailable DENISA BENTLEY Attending Unavailable ROSE, EMILEE Referring Unavailable HAAGEN, СВЕТЛАНА Primary Care Unavailable DENISA BENTLEY Attending Unavailable HAAGEN, СВЕТЛАНА Primary Care Unavailable HAAGEN, СВЕТЛАНА Primary Care Unavailable ROSEGABYEMILEE Attending Unavailable ROSE, EMILEE Referring Unavailable HAAGEN, СВЕТЛАНА Primary Care Unavailable HAAGEN, СВЕТЛАНА Primary Care Unavailable DYAN COREY J Attending Unavailable MARYANA, DYAN J Referring Unavailable HAAGEN, СВЕТЛАНА Primary Care Unavailable ROSE, EMILEE Referring Unavailable VIDAL WILLIS Attending Unavailable HAAGEN, СВЕТЛАНА Primary Care Unavailable ROSE, EMILEE Referring Unavailable HAAGEN, СВЕТЛАНА Primary Care Unavailable NAYELI BOWMAN Attending Unavailable HAAGEN, СВЕТЛАНА Attending Unavailable HAAGEN, СВЕТЛАНА Primary Care Unavailable HAAGEN, СВЕТЛАНА Primary Care Unavailable DENISA BENTLEY Attending Unavailable HAAGEN, СВЕТЛАНА Primary Care Unavailable ROSE, EMILEE Referring Unavailable HAAGEN, СВЕТЛАНА Primary Care Unavailable ROSEEMILEE Attending Unavailable HAAGEN, СВЕТЛАНА Primary Care Unavailable ESTHER MILLIGAN Attending Unavail able Allergies Allergy Classification Reported Allergen(s) Allergy Type Date of Onset Reaction(s) Facility (20 sources) Seasonal allergy; Translations: [SEASONAL ALLERGIES] Allergy to substance 1 Other: See Comments [facility] Work Phone: Medications Current Medications Medication Drug Class(es) Dates Sig (Normalized) Sig (Original) acyclovir 400 mg oral tablet (4 sources) Herpesvirus Nucleoside Analog DNA Polymerase Inhibitor, Herpes Simplex Virus Nucleoside Analog DNA Polymerase Inhibitor, Herpes Zoster Virus Nucleoside Analog DNA Polymerase Inhibitor Start: 11-17-2024 End: 12-17-2024 take 1 tablet by mouth every eight hours acyclovir (ZOVIRAX) 400 mg tablet Take 1 tablet by mouth every 8 hours. 90 tablet 1 11/17/2024 12/17/2024 Active amoxicillin 875 mg / clavulanate 125 mg oral tablet (2 sources) Penicillin-class Antibacterial Start: 04-15-2023 End: 04-25-2023 take 1 tablet by mouth twice daily amoxicillin-clavu lanate potassium (AUGMENTIN) 875-125 mg per tablet Indications: Acute non-recurrent sinusitis, unspecified location Take 1 tablet by mouth two times a day for 10 days. 20 tablet 0 04/15/2023 04/25/2023 Active Start: 04-22-2022 End: 05-02-2022 take 1 tablet by mouth twice daily amoxicillin-clavulanic acid (AUGMENTIN) 875-125 mg per tablet Indications: Bacterial sinusitis Take 1 tablet by mouth twice daily for 10 days. 20 tablet 0 04/22/2022 05/02/2022 Active Comment on above: Take 1 tablet by yaniv th twice daily for 10 days. Take 1 tablet by yaniv th two times a day for 10 days. cefdinir 300 mg oral capsule (1 source) Cephalosporin Antibacterial Start: 08-29-19 End: 09-08-19 take 1 capsule by mouth twice daily cefdinir (OMNICEF) 300 mg capsule Indications: Bacterial sinusitis Take 1 capsule by mouth twice daily for 10 days. 20 capsule 0 08/28/2022 09/07/2022 Active Comment on above: Take 1 capsule by mo [facility] twice daily for 10 days. Docusate (16 sources) docusate sodium (COLACE ORAL) Take by mouth. Active doxycycline hyclate 100 mg oral tablet (1 source) Tetracycline-class Drug Start: 08-13-19 End: 08-23-19 take 1 tablet by mouth twice daily doxycycline (VIBRA-TABS) 100 mg tablet Indications: Bacterial sinusitis Take 1 tablet by mouth twice daily for 10 days. 20 tablet 0 08/12/2022 08/22/2022 Active Comment on above: Take 1 tablet by yaniv th twice daily for 10 days. Doxylamine (16 sources) doxylamine succinate (UNISOM, DOXYLAMINE, ORAL) Take by mouth. Active famotidine 20 mg oral tablet (16 sources) Histamine-2 Receptor Antagonist take 1 tablet by mouth twice daily before mealtime famotidine (PEPCID AC) 20 mg tablet Take 20 mg by mouth two times a day. Active fluconazole 150 mg oral tablet (2 sources) Azole Antifungal Start: 08-29-19 End: 08-29-19 fluconazole (DIFLUCAN) 150 mg tablet Indications: Candidiasis Take 1 tablet by mouth one time only for 1 dose. Repeat in 3 days as needed. 2 tablet 0 08/28/2022 08/28/2022 Active Start: 08-12-2022 End: 08-12-2022 fluconazole (DIFLUCAN) 150 m g tablet Indications: Candidiasis Take 1 tablet by mouth one time only for 1 dose. Repeat in 7 days as needed. 2 tablet 0 08/12/2022 08/12/2022 Active Comment on above: Take 1 tablet by yaniv th one time only for 1 dose. Repeat in 7 days as needed. Take 1 tablet by yaniv th one time only for 1 dose. Repeat in 3 days as needed. hydrocortisone 25 mg/ml topical cream (3 sources) Corticosteroid Start: End: hydrocortisone 2.5 % cream Indications: Eczema, unspecified type Apply 1 application to affected area twice daily for 14 days. Location: around eyes 28 g 1 07/26/2021 08/09/2021 Active Comment on above: Apply 1 application to affected area twice daily for 14 days. Location: around eyes hydrOXYzine hydrochloride 10 mg oral tablet (5 sources) Antihistamine Start: End: take 2 tablets by mouth every eight hours as needed hydrOXYzine HCl (ATARAX) 10 mg tablet Take 2 tablets by mouth three times a day as needed. 0 05/12/2023 06/11/2023 Active Start: 02-28-2023 End: 04-20-2023 take 1 tablet by mouth every eight hours as needed hydrOXYzine HCl (ATARAX) 10 mg tablet Take 1 tablet by mouth three times a day as needed. 90 tablet 0 03/21/2023 04/20/2023 Active Comment on above: Take 1 tablet by yaniv th three times a day as needed. Take 2 tablets by mo [facility] three times a day as needed. Loratadine (20 sources) LORATADINE ORAL Take by mouth. Active LORATADINE ORAL Take by mouth. 0 Active Comment on above: Take by mouth. omeprazole 40 mg delayed release oral capsule (16 sources) Proton Pump Inhibitor Start: take 1 capsule by mouth once daily omeprazole (PRILOSEC) 40 mg capsule Take 1 capsule by mouth once daily. 30 capsule 3 09/01/2024 Active ondansetron 4 mg oral tablet (20 sources) Serotonin-3 Receptor Antagonist Start: take 1 tablet by mouth every six hours as needed ondansetron (ZOFRAN) 4 mg tablet Take 1 tablet by mouth every 6 hours as needed for nausea/vomiting. 60 tablet 1 11/15/2024 Active Start: 08-23-2024 End: 11-13-2024 take 1 tablet by mouth every six hours as needed ondansetron (ZOFRAN) 4 mg tablet Take 1 tablet by mouth every 6 hours as needed for nausea/vomiting. 60 tablet 1 10/06/2024 11/13/2024 Discontinued Start: 07-12-2024 End: 08-23-2024 take 1 tablet by mouth every eight hours as needed ondansetron (ZOFRAN) 8 mg tablet Take 1 tablet by mouth every 8 hours as needed for nausea/vomiting. 30 tablet 1 08/12/2024 08/23/2024 Discontinued Start: 05-12-2024 End: 07-10-2024 take 1 tablet by mouth every eight hours as needed ondansetron (ZOFRAN) 8 mg tablet Take 1 tablet by mouth every 8 hours as needed for nausea/vomiting. 30 tablet 1 06/24/2024 07/10/2024 Discontinued Start: 06-16-2023 End: 05-12-2024 take 1 tablet by mouth every six hours as needed ondansetron orally disintegrating (ZOFRAN ODT) 4 mg disintegrating tablet Take 1 tablet by mouth every 6 hours as needed for nausea/vomiting. 20 tablet 06/16/2023 05/12/2024 Discontinued Comment on above: Take 1 tablet by yaniv th every 6 hours as needed for nausea/vomiting. PNV no.95/ferrous fum/folic ac ( ORAL) (20 sources) take 1 tablet by mouth once daily before mealtime PNV no.95/ferrous fum/folic ac ( ORAL) Take 1 tablet by mouth once daily. Active Polyethylene Glycols (16 sources) polyethylene gly col 3350 (MIRALAX ORAL) Take by mouth as needed. Active polyethylene gly col 3350 (MIRALAX ORAL) Take by mouth. Active pyridoxine HCl, vitamin B6, (VITAMIN B-6 ORAL) (20 sources) take 25 mg by mouth once daily pyridoxine HCl, vitamin B6, (VITAMIN B-6 ORAL) Take 25 mg by mouth once daily. Active valACYclovir 1000 mg oral tablet (20 sources) Herpesvirus Nucleoside Analog DNA Polymerase Inhibitor, Herpes Simplex Virus Nucleoside Analog DNA Polymerase Inhibitor, Herpes Zoster Virus Nucleoside Analog DNA Polymerase Inhibitor Start: 1 End: 2 take 1 tablet by mouth twice daily valACYclovir (VALTREX) 1 gram Indications: Recurrent cold sores Take 1 tablet by mouth twice daily. For cold sore outbreak 6 tablet 5 04/17/2022 Active Comment on above: Take 1 tablet by yaniv th twice daily. For cold sore outbreak Completed/Discontinued Medications Medication Drug Class(es) Dates Sig (Normalized) Sig (Original) [id number] 200 actuat albuterol 0.09 mg/actuat metered dose inhaler (20 sources) beta2-Adrenergic Agonist Start: 07-02-2016 End: 05-12-2024 take 2 puff(s) by inhalation every four hours as needed for wheezing albuterol HFA (VENTOLIN HFA) 90 mcg/actuation inhaler Indications: Exercise-induced asthma Inhale 2 Puffs as instructed every 4 hours as needed for Wheezing/Shortness of Breath. 1 Inhaler 07/02/2016 05/12/2024 Discontinued (Course of therapy completed) Comment on above: Inhale 2 Puffs as in structed every 4 hours as needed for Wheezing/Shortness of Breath. aspirin 81 mg delayed release oral tablet (20 sources) Platelet Aggregation Inhibitor, Nonsteroidal Anti-inflammatory Drug Start: 05-12-2024 End: 08-04-2024 take 1 tablet by mouth once daily aspirin, enteric coated (ECOTRIN LOW STRENGTH) 81 mg EC tablet Indications: Encounter for supervision of normal first in first trimester (HCC) , with uncertain dates, antepartum (HCC) Take 1 tablet by mouth once daily. 90 tablet 3 05/12/2024 08/04/2024 Discontinued Aspirin 81 mg ta b Take 81 mg by mouth. Active biotin 1 mg oral tablet (20 sources) Start: 12-23-2022 End: 05-12-2024 Biotin 1 mg tab Take 1 tablet by mouth. 12/23/2022 05/12/2024 Discontinued (Course of therapy completed) Comment on above: Take 1 tablet by yaniv th. brexpiprazole 0.25 mg oral tablet (8 sources) Atypical Antipsychotic Start: 03-07-2023 End: 03-21-2023 take 1 tablet by mouth once daily brexpiprazole (REXULTI) 0.25 mg tablet Take 1 tablet by mouth once daily. 30 tablet 0 03/07/2023 03/21/2023 Discontinued (Side Effects) Start: 08-12-2022 End: 02-12-2023 take 1 tablet by mouth once daily brexpiprazole (REXULTI) 0.5 mg tablet Indications: Moderate episode of recurrent major depressive disorder (HCC) Take 1 tablet by mouth once daily. 30 tablet 1 08/12/2022 02/12/2023 Discontinued (Other) Comment on above: Take 1 tablet by yaniv th once daily. 24 hr buPROPion hydrochloride 150 mg extended release oral tablet (1 source) Aminoketone Start: 021 End: 022 take 1 tablet by mouth once daily buPROPion XL (WELLBUTRIN XL) 150 mg 24 hr tablet Indications: Recurrent major depressive disorder, in remission ([facility]) Take 1 tablet by mouth once daily. 90 tablet 1 07/31/2020 07/26/2021 Discontinued Comment on above: Take 1 tablet by yaniv th once daily. cyclobenzaprine hydrochloride 10 mg oral tablet (20 sources) Muscle Relaxant Start: 01- End: take 1 tablet by mouth three times daily as needed for muscle spasms cyclobenzaprine (FLEXERIL) 10 mg tablet Indications: Headache, unspecified headache type , Neck pain Take 1 tablet by mouth three times a day as needed for muscle spasm. 30 tablet 05/19/2023 05/12/2024 Discontinued (Course of therapy completed) Comment on above: Take 1 tablet by yaniv th three times a day as needed for muscle spasm. 24 hr desvenlafaxine succinate 100 mg extended release oral tablet (20 sources) Serotonin and Norepinephrine Reuptake Inhibitor Start: End: take 1 tablet by mouth once daily desvenlafaxine ER (PRISTIQ) 100 mg 24 hr tablet Take 1 tablet by mouth once daily. 90 tablet 05/12/2024 08/03/2024 Discontinued (Other) Start: 02-12-2023 End: 12-04-2023 take 1 tablet by mouth once daily desvenlafaxine ER (PRISTIQ) 100 mg 24 hr tablet Take 1 tablet by mouth once daily. 90 tablet 0 09/05/2023 Active Start: 06-10-2022 End: 02-12-2023 take 1 tablet by mouth once daily desvenlafaxine ER (PRISTIQ) 50 mg 24 hr tablet Indications: Anxiety and depression Take 1 tablet by mouth once daily. 90 tablet 1 07/03/2022 02/12/2023 Discontinued Start: 02-22-2022 End: 06-08-2022 take 1 tablet by mouth once daily desvenlafaxine ER (PRISTIQ) 50 mg 24 hr tablet Indications: Anxiety and depression Take 1 tablet by mouth once daily. Decrease prozac to 20 mg daily. Increase pristiq to 50 mg daily. 30 tablet 1 04/17/2022 06/08/2022 Discontinued Start: 01-25-2022 End: 02-22-2022 take 1 tablet by mouth once daily desvenlafaxine ER (PRISTIQ) 25 mg 24 hr tablet Indications: Recurrent major depressive disorder, in remission (HCC) Take 1 tablet by mouth once daily. 30 tablet 2 01/25/2022 02/22/2022 Discontinued Comment on above: Take 1 tablet by yaniv th once daily. Take 1 tablet by yaniv th once daily. Decrease prozac to 20 mg daily. Increase pristiq to 50 mg daily. Ethinyl Estradiol / norgestimate (1 source) Progestin, Estrogen Start: 1 End: 2 take 1 tablet by mouth once daily norgestimate 0.25 mg-ethinyl estradiol 35 mcg (EVELIO) 0.25-35 mg-mcg per tablet Indications: Oral contraceptive prescribed Take 1 tablet by mouth once daily. 84 tablet 3 11/27/2020 07/26/2021 Discontinued Comment on above: Take 1 tablet by yaniv once daily. FLUoxetine 10 mg oral capsule (20 sources) Serotonin Reuptake Inhibitor Start: 2 End: 3 FLUoxetine (PROZAC) 10 mg capsule One pill by mouth daily X 1 week; then every other day until gone. 30 capsule 0 03/22/2022 06/10/2022 Discontinued Start: 02-22-2022 End: 03-05-2022 FLUoxetine (PROZAC) 20 mg ca psule Indications: Anxiety and depression Decrease prozac to 20 mg daily. Increase pristiq to 50 mg daily. 30 capsule 1 02/22/2022 03/05/2022 Discontinued Start: 01-10-2022 End: 02-22-2022 take 1 capsule by mouth once daily FLUoxetine (PROZAC) 40 mg capsule Indications: Recurrent major depressive disorder, in remission (HCC) Take 1 capsule by mouth once daily. 90 capsule 1 01/16/2022 02/22/2022 Discontinued (Other) Start: 11-09-2021 take 2 capsules by [facility] once daily FLUoxetine (PROZAC) 10 mg capsule Indications: Recurrent major depressive disorder, in remission (HCC) Take two capsules by mouth daily. 180 capsule 3 11/09/2021 Active Start: 09-26-2021 End: 11-09-2021 FLUoxetine (PROZAC) 10 mg ca psule Indications: Recurrent major depressive disorder, in remission (HCC) Take one capsule on day 1-14 of cycle. Take two capsules on day 14-28 of cycle. 135 capsule 3 10/31/2021 11/09/2021 Discontinued Start: 07-26-2021 End: 10-24-2021 take 1 capsule by mouth once daily FLUoxetine HCl (PROZAC) 20 mg capsule Indications: Recurrent major depressive disorder, in remission (HCC) Take 1 capsule by mouth once daily. 30 capsule 2 07/26/2021 10/24/2021 Active Start: 04-03-2021 End: 07-26-2021 take 1 capsule by mouth once daily FLUoxetine HCl (PROZAC) 40 mg capsule Indications: Recurrent major depressive disorder, in remission (HCC) Take 1 capsule by mouth once daily. 30 capsule 5 04/03/2021 07/26/2021 Discontinued Comment on above: Take 1 capsule by [facility] once daily. Take one capsule on day 1-14 of cycle. Take two capsules on day 14-28 of cycle. Take two capsules by mouth daily. Decrease prozac to 2 0 mg daily. Increase pristiq to 50 mg daily. One pill by mouth da myrtle X 1 week; then every other day until gone. fluticasone propionate 0.05 mg/actuat metered dose nasal spray (20 sources) Corticosteroid Start: End: take 2 spray(s) by mouth once daily fluticasone (FLONASE) 50 mcg/actuation nasal spray Indications: Bacterial sinusitis Use 2 Sprays in each nostril once daily. Rinse mouth after use. 1 Bottle 1 06/10/2019 05/12/2024 Discontinued (Course of therapy completed) Comment on above: Use 2 Sprays in each nostril once daily. Rinse mouth after use. lamoTRIgine 100 mg disintegrating oral tablet (20 sources) Mood Stabilizer, Anti-epileptic Agent Start: End: take 1 tablet by mouth once daily lamoTRIgine orally disintegrating (LAMICTAL ODT) 100 mg disintegrating tablet Take 1 tablet by mouth once daily. 30 tablet 1 06/01/2024 08/03/2024 Discontinued (Other) Start: 12-15-2023 End: 06-27-2024 take 1 tablet by mouth once daily lamoTRIgine (LAMICTAL) 100 mg tablet Take 1 tablet by mouth once daily. 90 tablet 03/29/2024 06/01/2024 Discontinued (Side Effects) Start: 09-05-2023 End: 11-04-2023 take 1 tablet by mouth once daily lamoTRIgine (LAMICTAL) 100 mg tablet Take 1 tablet by mouth once daily. Start after completing 30 days of 3.5 tablets of 25 mg Lamictal. 30 tablet 1 09/05/2023 Active Start: 09-05-2023 End: 12-12-2023 take 3.5 tablets by mouth once daily lamoTRIgine (LAMICTAL) 25 mg tablet Take 3.5 tablets by mouth once daily. 105 tablet 0 09/05/2023 12/12/2023 Discontinued (Course of therapy completed) Start: 07-07-2023 End: 09-05-2023 take 2.5 tablets by mouth once daily, then take 3 tablets by mouth once daily lamoTRIgine (LAMICTAL) 25 mg tablet Take 2.5 tablets by mouth once daily for 30 days, THEN 3 tablets once daily. 165 tablet 0 07/07/2023 09/05/2023 Discontinued Start: 05-12-2023 End: 07-11-2023 take 1.5 tablets by mouth once daily, then take 2 tablets by mouth once daily lamoTRIgine (LAMICTAL) 25 mg tablet Take 1.5 tablets by mouth once daily for 30 days, THEN 2 tablets once daily. 105 tablet 0 05/12/2023 07/07/2023 Discontinued Start: 02-12-2023 End: 05-12-2023 take 1 tablet by mouth once daily lamoTRIgine (LAMICTAL) 25 mg tablet Take 1 tablet by mouth once daily. 30 tablet 0 03/21/2023 05/12/2023 Discontinued Comment on above: Take 1 tablet by yaniv th once daily for 14 days, THEN 2 tablets once daily for 14 days, THEN 3 tablets once daily for 14 days. Take 1 tablet by yaniv th once daily. Take 1.5 tablets by mouth once daily for 30 days, THEN 2 tablets once daily. Take 2.5 tablets by mouth once daily for 30 days, THEN 3 tablets once daily. ijxyxlmi-fpoy-LF-calci um-mins (ONE-A-DAY WOMENS FORMULA) 18 mg iron-400 mcg-500 mg Ca tab (12 sources) ykkvzijr-jpin-YN -calcium-m ins (ONE-A-DAY WOMENS FORMULA) 18 mg iron-400 mcg-500 mg Ca tab gaocroak-tcxq-WS-calci um-mins 18 mg iron-400 mcg-500 mg Ca tab (20 sources) End: 05-12-2024 edjcwqpa-jhss-BR-calcium-m ins 18 mg iron-400 mcg-500 mg Ca tab 05/12/2024 Discontinued (Course of therapy completed) ylqpieup-fxep-VC -calcium-mins 18 mg iron-400 mcg-500 mg Ca tab Active irflqjwc-iuyc-MH -calcium-mins 18 mg iron-400 mcg-500 mg Ca tab Multivitamin preparation (20 sources) End: 05-12-2024 multivitamin (OPTIVITE P.M.T . ORAL) 05/12/2024 Discontinued (Course of therapy completed) multivitamin (OP TIVITE P.M.T. ORAL) Active multivitamin (OP TIVITE P.M.T. ORAL) mupirocin 0.02 mg/mg topical ointment (4 sources) RNA Synthetase Inhibitor Antibacterial Start: 09-01-2023 End: 09-08-2023 mupirocin (BACTROBAN) 2 % ointment Indications: Sore in nose Apply to affected area three times a day for 7 days. 15 g 0 09/01/2023 09/08/2023 Start: 04-15-2023 End: 04-22-2023 mupirocin (BACTROBAN) 2 % oi ntment Indications: Sore in nose Apply to affected area three times a day for 7 days. 15 g 0 04/15/2023 04/22/2023 Active Comment on above: Apply to affected ar ea three times a day for 7 days. naproxen sodium 220 mg oral tablet (20 sources) Nonsteroidal Anti-inflammatory Drug Start: End: take 1 tablet by mouth twice daily at mealtime naproxen sodium (ALEVE) 220 mg tablet Take 1 tablet by mouth two times a day with meals. TAKE WITH FOOD 02/10/2023 05/06/2024 Discontinued (Discontinued by Patient) Start: 05-10-2019 End: 07-26-2021 take 1 tablet by mouth twice daily at mealtime naproxen (NAPROSYN) 500 mg tablet Indications: Muscle strain of left shoulder region, initial encounter , Strain of neck muscle, initial encounter Take 1 tablet by mouth twice daily with meals. Take with food. 20 tablet 0 05/10/2019 07/26/2021 Discontinued Comment on above: Take 1 tablet by yaniv th twice daily with meals. Take with food. Take 1 tablet by yaniv th two times a day with meals. TAKE WITH FOOD predniSONE 20 mg oral tablet (3 sources) Start: 05-19-19 End: 07-07-19 take 2 tablets by mouth once daily predniSONE (DELTASONE) 20 mg tablet Indications: Headache, unspecified headache type Take 2 tablets by mouth once daily. 10 tablet 0 05/19/2023 07/07/2023 Discontinued (Course of therapy completed) Comment on above: Take 2 tablets by mo uth once daily. promethazine hydrochloride 12.5 mg rectal suppository (20 sources) Phenothiazine Start: 05-07-19 End: 10-14-19 take 12.5 mg rectal route every six hours as needed promethazine (PHENERGAN) 12.5 mg suppository 1 Suppository by RECTAL route every 6 hours as needed for nausea/vomiting. 12 Suppository 05/07/2024 10/13/2024 Discontinued (Course of therapy completed) Vitamin B Complex (20 sources) Start: 12-24-19 End: 05-12-19 take 1 tablet by mouth once daily vitamin b complex tab Take 1 tablet by mouth once daily. 12/23/2022 05/12/2024 Discontinued (Course of therapy completed) Start: 12-23-2022 take 1 tablet by yaniv th once daily vitamin b complex tab Take 1 tablet by mouth once daily. 12/23/2022 Active Start: 12-23-2022 take 1 tablet by yaniv th once daily vitamin b complex tab Take 1 tablet by mouth once daily. 0 12/23/2022 Active Comment on above: Take 1 tablet by yaniv th once daily. Problems Active Problems Problem Classification Problem Date Documented Da te Episodic/Chronic Administrative/social admission (2 sources) Stress; Translations: [Other specified problems related to psychosocial circumstances] 03-29-2024 Episodic Allergic reactions (1 source) Eczema; Translations: [Dermatitis, unspecified] Episodic Anxiety disorders (20 sources) Mixed anxiety and depressive disorder; Translations: [Anxiety disorder, unspecified] Onset: 1 07-28-2020 Chronic Contraceptive and procreative management (2 sources) Patient encounter status; Translations: [Encounter for other general counseling and advice on contraception] 04-15-2023 Episodic Esophageal disorders (1 source) Gastroesophageal reflux disease; Translations: [Gastro-esophageal reflux disease without esophagitis] 06-16-2023 Chronic Immunizations and screening for infectious disease (2 sources) Vaccination needed; Translations: [Encounter for immunization] Onset: 5 09-28-2024 Episodic Mood disorders (20 sources) Recurrent major depression in remission; Translations: [Major depressive disorder, recurrent, in remission, unspecified] Onset: 9 Chronic Mood disorders (1 source) Mood disorders; Translations: [Anxiety and depression] Onset: 5 Mycoses (2 sources) Candidiasis; Translations: [Candidiasis, unspecified] Episodic Nausea and vomiting (1 source) Nausea; Translations: [Nausea] 06-16-2023 Episodic Other aftercare (3 sources) Long-term current use of drug therapy; 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] 03-29-2024 Episodic Other circulatory disease (2 sources) Respiratory symptom; Translations: [Other specified symptoms and signs involving the circulatory and respiratory systems] Episodic Other complications of (13 sources) Maternal obesity complicating , childbirth and the puerperium, antepartum; Translations: [Obesity complicating , second trimester] 08-04-2024 Chronic Other complications of (1 source) Obesity complicating , third trimester; Translations: [Obesity affecting in third trimester, unspecified obesity type (HCC)] Onset: 5 Chronic Other complications of (2 sources) Obesity complicating , unspecified trimester; Translations: [Obesity in (HCC)] Onset: 5 Chronic Other complications of (1 source) Obesity complicating , second trimester; Translations: [Obesity affecting in second trimester, unspecified obesity type (HCC)] Onset: 5 Chronic Other complications of (1 source) Morning sickness; Translations: [Mild hyperemesis gravidarum] 05-10-2024 Episodic Other complications of (1 source) Supervision of high risk , unspecified, third trimester; Translations: [Supervision of high risk in third trimester (HCC)] Onset: 5 Episodic Other complications of (1 source) Supervision of high risk , unspecified, second trimester; Translations: [Supervision of high risk in second trimester (HCC)] Onset: 5 Episodic Other connective tissue disease (1 source) Pain of bilateral hands; Translations: [Pain in right hand] 12-23-2022 Episodic Other connective tissue disease (1 source) Medial epicondylitis of left humerus; Translations: [Medial epicondylitis, left elbow] 10-06-2023 Episodic Other ear and sense organ disorders (1 source) Ear canal finding; Translations: [Other specified disorders of external ear, bilateral] 10-06-2023 Episodic Other ear and sense organ disorders (1 source) Bilateral earache; Translations: [Otalgia, bilateral] 10-06-2023 Episodic Other gastrointestinal disorders (1 source) Acute constipation; Translations: [Constipation, unspecified] 01-27-2024 Episodic Other nervous system disorders (1 source) Numbness and tingling sensation of skin; Translations: [Anesthesia of skin] Episodic Other nervous system disorders (1 source) Cold extremity; Translations: [Unspecified disturbances of skin sensation] Episodic Other non-traumatic joint disorders (1 source) Pain in right shoulder; Translations: [Pain in joint, shoulder region] 12-23-2022 Episodic Other nutritional; endocrine; and metabolic disorders (1 source) Hypercalcemia; Translations: [Hypercalcemia] Chronic Other nutritional; endocrine; and metabolic disorders (20 sources) Obesity; Translations: [Obesity, unspecified] Onset: 5 08-08-2023 Chronic Other screening for suspected conditions (not mental disorders or infectious disease) (8 sources) Cancer cervix screening status; Translations: [Encounter for screening for malignant neoplasm of cervix] Onset: 5 Episodic Other upper respiratory disease (2 sources) Lesion of nose; Translations: [Other specified disorders of nose and nasal sinuses] 04-15-2023 Episodic Other upper respiratory infections (3 sources) Bacterial sinusitis; Translations: [Chronic sinusitis, unspecified] Chronic Residual codes; unclassified (1 source) Gestation period, 8 weeks; Translations: [8 weeks gestation of ] 05-06-2024 Episodic Residual codes; unclassified (1 source) Gestation period, 11 weeks; Translations: [11 weeks gestation of ] 06-09-2024 Episodic Residual codes; unclassified (2 sources) Gestation period, 12 weeks; Translations: [12 weeks gestation of ] 06-09-2024 Episodic Residual codes; unclassified (1 source) Gestation period, 14 weeks; Translations: [14 weeks gestation of ] 06-22-2024 Episodic Residual codes; unclassified (2 sources) Gestation period, 16 weeks; Translations: [16 weeks gestation of ] 07-07-2024 Episodic Residual codes; unclassified (3 sources) Gestation period, 20 weeks; Translations: [20 weeks gestation of ] 08-03-2024 Episodic Residual codes; unclassified (1 source) Gestation period, 24 weeks; Translations: [24 weeks gestation of ] 09-01-2024 Episodic Residual codes; unclassified (2 sources) Gestation period, 25 weeks; Translations: [25 weeks gestation of ] 09-07-2024 Episodic Residual codes; unclassified (1 source) Gestation period, 28 weeks; Translations: [28 weeks gestation of ] 09-28-2024 Episodic Residual codes; unclassified (1 source) Gestation period, 30 weeks; Translations: [30 weeks gestation of ] 10-13-2024 Episodic Residual codes; unclassified (1 source) Gestation period, 32 weeks; Translations: [32 weeks gestation of ] 10-21-2024 Episodic Residual codes; unclassified (1 source) Gestation period, 33 weeks; Translations: [33 weeks gestation of ] 11-02-2024 Episodic Residual codes; unclassified (1 source) Gestation period, 35 weeks; Translations: [35 weeks gestation of ] 11-17-2024 Episodic Residual codes; unclassified (2 sources) Gestation period, 37 weeks; Translations: [37 weeks gestation of ] 11-25-2024 Episodic Residual codes; unclassified (1 source) 37 weeks gestation of ; Translations: [37 weeks gestation of (HCC)] Onset: Episodic Residual codes; unclassified (1 source) 35 weeks gestation of ; Translations: [35 weeks gestation of (HCC)] Onset: Episodic Residual codes; unclassified (1 source) 33 weeks gestation of ; Translations: [33 weeks gestation of (HCC)] Onset: 07-01-202 5 Episodic Residual codes; unclassified (1 source) 32 weeks gestation of ; Translations: [32 weeks gestation of (HCC)] Onset: 5 Episodic Residual codes; unclassified (1 source) 30 weeks gestation of ; Translations: [30 weeks gestation of ([facility])] Onset: 5 Episodic Residual codes; unclassified (1 source) 28 weeks gestation of ; Translations: [28 weeks gestation of ([facility])] Onset: 5 Episodic Residual codes; unclassified (1 source) 24 weeks gestation of ; Translations: [24 weeks gestation of ([facility])] Onset: 5 Episodic Residual codes; unclassified (1 source) 25 weeks gestation of ; Translations: [25 weeks gestation of ([facility])] Onset: 5 Episodic Spondylosis; intervertebral disc disorders; other back problems (2 sources) Low back pain; Translations: [Low back pain, unspecified back pain laterality, unspecified chronicity, unspecified whether sciatica present] 06-16-2023 Episodic Sprains and strains (1 source) Strain of back muscle; Translations: [Strain of muscle, fascia and tendon of lower back, subsequent encounter] 10-06-2023 Episodic Unclassified (1 source) Unknown / UNK(Unknown) Onset: 7 Unclassified (20 sources) [facility] Education - COMMON Onset: 5 05-12-2024 Unclassified (20 sources) Education - [place] Onset: 5 05-12-2024 Unclassified (1 source) Long-term current use of drug therapy 08-03-2024 Unclassified (1 source) Rubella non-immune status, antepartum ([facility]); Translations: [Rubella non-immune status, antepartum ([facility])] Onset: 5 Unclassified (1 source) History of suicide attempt; Translations: [History of suicide attempt] Onset: 5 Past or Other Problems Problem Classification Problem Date Documented Da te Episodic/Chronic Conditions associated with dizziness or vertigo (20 sources) Lightheadedness; Translations: [Dizziness and giddiness] Onset: 09-06-2019 09-06-2019 Episodic Other complications of (20 sources) Vomiting of , unspecified; Translations: [Unspecified vomiting of , unspecified as to episode of care or not applicable] Onset: 05-12-2024 05-06-2024 Episodic Other complications of (20 sources) High risk ; Translations: [Supervision of high risk , unspecified, first trimester] Onset: 05-12-2024 05-12-2024 Episodic Other complications of (20 sources) Rubella non-immune; Translations: [Supervision of other high risk pregnancies, unspecified trimester] Onset: 06-14-2024 06-14-2024 Episodic Other complications of (2 sources) Mild hyperemesis gravidarum; Translations: [Mild hyperemesis gravidarum] Onset: 05-10-2024 Episodic Other complications of (1 source) Hyperemesis gravidarum with metabolic disturbance; Translations: [Hyperemesis gravidarum with metabolic disturbance] Onset: 06-03-2024 Episodic Other complications of (1 source) Supervision of other high risk pregnancies, unspecified trimester; Translations: [Rubella non-immune status, antepartum (HCC)] Onset: 06-14-2024 Episodic Other complications of (1 source) Supervision of high risk , unspecified, first trimester; Translations: [Supervision of high risk in first trimester] Onset: 05-12-2024 Episodic Other gastrointestinal disorders (1 source) Constipation, unspecified; Translations: [Acute constipation] Onset: 01-27-2024 Episodic Other and delivery including normal (9 sources) Normal ; Translations: [Encounter for supervision of normal first , first trimester] Onset: 05-12-2024 05-11-2024 Episodic Other upper respiratory infections (3 sources) Acute sinusitis; Translations: [Acute sinusitis, unspecified] Onset: 06-16-2024 04-15-2023 Episodic Residual codes; unclassified (1 source) 20 weeks gestation of ; Translations: [20 weeks gestation of (HCC)] Onset: 08-04-2024 Episodic Screening and history of mental health and substance abuse codes (20 sources) H/O: attempted suicide; Translations: [History of suicide attempt] Onset: 05-12-2024 05-12-2024 Episodic Unclassified (1 source) LEFT THUMB LAC Onset: 02-06-2017 Viral infection (20 sources) Herpes simplex; Translations: [Herpesviral infection, unspecified] Onset: 01-21-2019 01-21-2019 Episodic Results Test Name Value Interpretation Reference Range Facil ity URINE OB DIP B/Oon 5 Glucose Ql (U) Negative Neg mg/dL [facility] Protein.monoclonal (U) [Mass/Vol] 100 mg/dL Neg [facility] URINE OB DIP B/Oon 5 Glucose Ql (U) Negative Neg mg/dL [facility] Interpretation and review of laboratory results Normal [facility] Protein.monoclonal (U) [Mass/Vol] Negative Neg mg/dL [facility] Examination level ultrasound on 11-18-2024 [facility] Examination level ultrasound on 11-17-2024 Radiology Study observation (narrative) [facility] ROUTINE, GROUP B ST REPTOCOCCUS BY PCRon 11-17-2024 ROUTINE, GROUP B STREPTOCOCCUS BY PCR Not detected Normal [facility] Comment on above: Performed By: #### G BPCR ####[id number] [place] [address] [place] URINE OB DIP B/Oon 5 Glucose Ql (U) Negative Neg mg/dL [facility] Interpretation and review of laboratory results Normal [facility] Protein.monoclonal (U) [Mass/Vol] Negative Neg mg/dL [facility] Examination level ultrasound on 10-22-2024 [facility] Examination level ultrasound on 10-21-2024 Radiology Study observation (narrative) [facility] CBC W Auto Differential pane l (Bld)on 09-28-2024 Basophils (Bld) [#/Vol] 10*3/uL Normal <0.11 [facility] Comment on above: Order Comment: Speci men Type: BLOOD SPECIMEN Ordering Facility: [facility] Address: [address] [place] [address] Performed By: #### 5 7021-8 #### [facility] CLIA [id number] [address] [place] [address] [place] Basophils/100 WBC (Bld) 0.3 % Normal [facility] Comment on above: Order Comment: Speci men Type: BLOOD SPECIMEN Ordering Facility: [facility] Address: [address] [place] [address] Performed By: #### 5 7021-8 #### [facility] CLIA [id number] [address] [place] [address] [place] Differential cell count method Nom (Bld) Auto Normal [facility] Comment on above: Order Comment: Speci men Type: BLOOD SPECIMEN Ordering Facility: [facility] Address: [address] [place] [address] Performed By: #### 5 7021-8 #### [facility] CLIA [id number] [address] [place] [address] [place] Eosinophils (Bld) [#/Vol] 0.06 10*3/uL Normal <0.46 [facility] Comment on above: Order Comment: Speci men Type: BLOOD SPECIMEN Ordering Facility: [facility] Address: [address] [place] [address] Performed By: #### 5 7021-8 #### [facility] CLIA [id number] [address] [place] [address] [place] Eosinophils/100 WBC (Bld) 0.8 % Normal [facility] Comment on above: Order Comment: Speci men Type: BLOOD SPECIMEN Ordering Facility: [facility] Address: [address] [place] [address] Performed By: #### 5 7021-8 #### [facility] CLIA [id number] [address] [place] [address] [place] Erythrocyte distribution width (RBC) [Ratio] 14.1 % Normal 11.5-15.0 [facility] Comment on above: Order Comment: Speci men Type: BLOOD SPECIMEN Ordering Facility: [facility] Address: [address] [place] [address] Performed By: #### 5 7021-8 #### [facility] CLIA [id number] [address] [place] [address] [place] Hematocrit (Bld) [Volume fraction] 36.5 % Normal 36.0-46.0 [facility] Comment on above: Order Comment: Speci men Type: BLOOD SPECIMEN Ordering Facility: [facility] Address: [address] [place] [address] Performed By: #### 5 7021-8 #### [facility] CLIA [id number] [address] [place] [address] [place] Hemoglobin (Bld) [Mass/Vol] 11.7 g/dL Normal 11.5-15.5 [facility] Comment on above: Order Comment: Speci men Type: BLOOD SPECIMEN Ordering Facility: [facility] Address: [address] [place] [address] Performed By: #### 5 7021-8 #### [facility] CLIA [id number] [address] [place] [address] [place] Immature granulocytes (Bld) [#/Vol] 0.05 10*3/uL Normal <0.10 [facility] Comment on above: Order Comment: Speci men Type: BLOOD SPECIMEN Ordering Facility: [facility] Address: [address] [place] [address] Performed By: #### 5 7021-8 #### [facility] CLIA [id number] [address] [place] [address] [place] Immature granulocytes/100 WBC (Bld) 0.6 % Normal [facility] Comment on above: Order Comment: Speci men Type: BLOOD SPECIMEN Ordering Facility: [facility] Address: [address] [place] [address] Performed By: #### 5 7021-8 #### [facility] CLIA [id number] [address] [place] [address] [place] Lymphocytes (Bld) [#/Vol] 1.36 10*3/uL Normal 1.00-4.00 [facility] Comment on above: Order Comment: Speci men Type: BLOOD SPECIMEN Ordering Facility: [facility] Address: [address] [place] [address] Performed By: #### 5 7021-8 #### [facility] CLIA [id number] [address] [place] [address] [place] Lymphocytes/100 WBC (Bld) 17.4 % Normal [facility] Comment on above: Order Comment: Speci men Type: BLOOD SPECIMEN Ordering Facility: [facility] Address: [address] [place] [address] Performed By: #### 5 7021-8 #### [facility] CLIA [id number] [address] [place] [address] [place] MCH (RBC) [Entitic mass] 28.0 pg Normal 26.0-34.0 [facility] Comment on above: Order Comment: Speci men Type: BLOOD SPECIMEN Ordering Facility: [facility] Address: [address] [place] [address] Performed By: #### 5 7021-8 #### [facility] CLIA [id number] [address] [place] [address] [place] MCHC (RBC) [Mass/Vol] 32.1 g/dL Normal 30.5-36.0 [facility] Comment on above: Order Comment: Speci men Type: BLOOD SPECIMEN Ordering Facility: [facility] Address: [address] [place] [address] Performed By: #### 5 7021-8 #### [facility] CLIA [id number] [address] [place] [address] [place] MCV (RBC) [Entitic vol] 87.3 fL Normal 80.0-100.0 [facility] Comment on above: Order Comment: Speci men Type: BLOOD SPECIMEN Ordering Facility: [facility] Address: [address] [place] [address] Performed By: #### 5 7021-8 #### [facility] CLIA [id number] [address] [place] [address] [place] Monocytes (Bld) [#/Vol] 0.48 10*3/uL Normal <0.87 [facility] Comment on above: Order Comment: Speci men Type: BLOOD SPECIMEN Ordering Facility: [facility] Address: [address] [place] [address] Performed By: #### 5 7021-8 #### [facility] CLIA [id number] [address] [place] [address] [place] Monocytes/100 WBC (Bld) 6.1 % Normal [facility] Comment on above: Order Comment: Speci men Type: BLOOD SPECIMEN Ordering Facility: [facility] Address: [address] [place] [address] Performed By: #### 5 7021-8 #### [facility] CLIA [id number] [address] [place] [address] [place] Neutrophils (Bld) [#/Vol] 5.85 10*3/uL Normal 1.45-7.50 [facility] Comment on above: Order Comment: Speci men Type: BLOOD SPECIMEN Ordering Facility: [facility] Address: [address] [place] [address] Performed By: #### 5 7021-8 #### [facility] CLIA [id number] [address] [place] [address] [place] Neutrophils/100 WBC (Bld) 74.8 % Normal [facility] Comment on above: Order Comment: Speci men Type: BLOOD SPECIMEN Ordering Facility: [facility] Address: [address] [place] [address] Performed By: #### 5 7021-8 #### [facility] CLIA [id number] [address] [place] [address] [place] Nucleated RBC (Bld) [#/Vol] 10*3/uL Normal <0.01 [facility] Comment on above: Order Comment: Speci men Type: BLOOD SPECIMEN Ordering Facility: [facility] Address: [address] [place] [address] Performed By: #### 5 7021-8 #### [facility] CLIA [id number] [address] [place] [address] [place] Nucleated RBC/100 WBC (Bld) [Ratio] 0.0 /100 WBC Normal [facility] Comment on above: Order Comment: Speci men Type: BLOOD SPECIMEN Ordering Facility: [facility] Address: [address] [place] [address] Performed By: #### 5 7021-8 #### [facility] CLIA [id number] [address] [place] [address] [place] Platelet mean volume (Bld) [Entitic vol] 10.0 fL Normal 9.0-12.7 [facility] Comment on above: Order Comment: Speci men Type: BLOOD SPECIMEN Ordering Facility: [facility] Address: [address] [place] [address] Performed By: #### 5 7021-8 #### [facility] CLIA [id number] [address] [place] [address] [place] Platelets (Bld) [#/Vol] 278 10*3/uL Normal 150-400 [facility] Comment on above: Order Comment: Speci men Type: BLOOD SPECIMEN Ordering Facility: [facility] Address: [address] [place] [address] Performed By: #### 5 7021-8 #### [facility] CLIA [id number] [address] [place] [address] [place] RBC (Bld) [#/Vol] 4.18 10*6/uL Normal 3.90-5.20 [facility] Comment on above: Order Comment: Speci men Type: BLOOD SPECIMEN Ordering Facility: [facility] Address: [address] [place] [address] Performed By: #### 5 7021-8 #### [facility] CLIA [id number] [address] [place] [address] [place] WBC (Bld) [#/Vol] 7.82 10*3/uL Normal 3.70-11.00 [facility] Comment on above: Order Comment: Speci men Type: BLOOD SPECIMEN Ordering Facility: [facility] Address: [address] [place] [address] Performed By: #### 5 7021-8 #### [facility] CLIA [id number] [address] [place] [address] [place] GESTATIONAL GLUCOSE SCREEN, 1-HOUR, 50 GRAM, NON-FASTINGon 09-28-2024 Glucose [Mass/Vol] 121 mg/dL Normal 74-134 [facility] Comment on above: Order Comment: Speci men Type: BLOOD SPECIMENOrdering Facility: [facility] Address: [address] [place] [address] Result Comment: [facility] Congress of Obstetricians and Gynecologists (Yasemin/Kwame) guidelines state a gestational diabetes mellitus positive screen is made, in women not previously diagnosed with overt diabetes, when the 1 hr plasma glucose level is equal to or above 140 mg/dL. The [facility] N[facility] Specialist and [facility] [place] recommends a 135 mg/dL cutoff. Performed By: #### G LTGST ####[facility] [id number] [place] [address] [place] Reagin and Treponema pallidu m IgG and IgM [Interp]on 09-28-2024 T. pallidum IgG+IgM IA Ql (S) Non-Reactive Normal Nonreactive [facility] Comment on above: Order Comment: Speci men Type: BLOOD SPECIMEN Ordering Facility: [facility] Address: [address] [place] [address] Performed By: #### L [id number] #### [facility] CLIA [id number] [address] [place] [address] [place] Reagin+T pallidum IgG+IgM Se rPl-Impon 09-28-2024 Reagin and Treponema pallidum IgG and IgM [Interp] Cannot exclude recent Treponemal infection if specimen collected within 7-10 days after appearance of suspect lesions or 2-3 weeks after an exposure. Clinical correlation is required. Normal [facility] Comment on above: Order Comment: Speci men Type: BLOOD SPECIMEN Ordering Facility: [facility] Address: [address] [place] [address] Performed By: #### L [id number] #### [facility] CLIA [id number] [address] [place] [address] [place] Examination level ultrasound on 08-05-2024 Indication Detailed anatomic survey Maternal obesity, BMI >35 Impression REMOTE READ The patient is referred for a detailed anatomic survey. - Single, live, intrauterine . - biometry is consistent with the established gestational age. - No malformations were visualized on a complete detailed anatomic survey. - The amniotic fluid volume is normal amount. - The placenta is posterior, fundal. - The Transabdominal cervical length measures 37.9 mm with no evidence of funneling or other dynamic changes. - Not all structural malformations can be detected by ultrasound examination. Recommendations Additional follow-up as clinically indicated. Maternal Assessment Height 163 cm Height (ft) 5 ft Height (in) 4 in Physical Exam Initial weight (lb) 206 lb Initial BMI 35.36 kg/m Maternal assessment other: 1 Para 0 Method Transabdominal ultrasound examination. View: Suboptimal view: limited by position Berger . Number of fetuses: 1 Dating LMP on: 03/11/2024 GA by LMP 20 w + 6 d TIO by LMP: 12/16/2024 GA by prior assessment 20 w + 6 d TIO by prior assessment: 12/16/2024 Ultrasound examination on: 08/04/2024 GA by U/S based upon: AC, BPD, Femur, HC GA by U/S 21 w + 0 d TIO by U/S: 12/15/2024 Assigned: based on stated TIO, selected on 08/04/2024 Assigned GA 20 w + 6 d Assigned TIO: 12/16/2024 General Evaluation Cardiac activity present. FHR 151 bpm. movements: present. Presentation: transverse head left Placenta: Placental site: posterior, fundal Umbilical cord: Cord vessels: 3 vessel cord Amniotic fluid: Amount of AF: normal amount. MVP 6.2 cm Growth Overview Exam date GA BPD (mm) HC (mm) AC (mm) FL (mm) HL (mm) EFW (g) 07/07/2024 16w 6d 35.6 53% 134.8 46% 122.4 82% 23.6 66% 22.9 66% 193 77% 08/04/2024 20w 6d 46.5 19% 180.3 37% 175.8 89% 33.8 54% 34.4 77% 426 76% Biometry Standard BPD 46.5 mm 20w 0d 19% Hadlock OFD 64.9 mm 20w 4d 62% Nicolaides HC 180.3 mm 20w 3d 37% Chris Cerebellum tr 21.4 mm 20w 2d 42% Hill Nuchal fold 5.0 mm AC 175.8 mm 22w 3d 89% Hadlock Femur 33.8 mm 20w 6d 54% Chris Humerus 34.4 mm 21w 5d 77% Chris EFW 426 g 21w 2d 76% Hadlock EFW (lb) 0 lb EFW (oz) 15 oz EFW by: Hadlock (HC-AC-FL) Extended Branch Log[employer] Supervisor 4.8 mm CM 4.8 mm 37% Nicolaides Extremities / Bony Struc FL / HC 0.19 45% Hadlock Other Structures FHR 151 bpm Anatomy Cranium: normal Lateral ventricles: normal Choroid plexus: normal Midline falx: normal Cavum septi pellucidi: normal Cerebellum: normal Cisterna magna: normal Head / Neck Vermis: normal Neck: normal Nuchal fold: normal Lips: normal Profile: normal Nose: normal Face Maxilla: normal Mandible: normal Orbits: normal Lens: normal 4-chamber view: normal RVOT view: normal LVOT view: normal 3-vessel view: normal 4-[id number]-mrhqioq view: normal Heart / Thorax Situs: situs solitus (normal) Aortic arch view: normal SVC: normal IVC: normal Cardiac axis: normal Rt lung: normal Lt lung: normal Diaphragm: normal Cord insertion: normal Stomach: normal Kidneys: normal Bladder: normal Genitals: normal Abdomen Abdom. wall: normal Cervical spine: normal Thoracic spine: normal Lumbar spine: normal Sacral spine: normal Arms: normal Legs: normal Rt upper arm: normal Rt forearm: normal Rt hand: normal Rt fingers: normal Lt upper arm: normal Lt forearm: normal Lt hand: normal Lt fingers: normal Rt upper leg: normal Rt lower leg: normal Rt foot: normal Lt upper leg: normal Lt lower leg: normal Lt foot: normal Gender: Unspecified Wants to know sex: no Maternal Structures Uterus / Cervix Uterus: Visualized Cervix: Visualized Approach: Transabdominal Cervical length 37.9 mm Other: Patient declined transvaginal ultrasound for cervical length. Ovaries / Tubes / Adnexa Rt ovary: Not visualized Lt ovary: Not visualized Performed By: Ita Patel RDMS, RVT Read By: Deborah Puente M.D. MATERNAL MEDICINE [facility] Examination level ultrasound on 08-04-2024 Radiology Study observation (narrative) [facility] Examination level ultrasound on 07-07-2024 Indication Early anatomic survey Maternal obesity, BMI >35 Impression REMOTE READ The patient is referred for an early anatomic survey because of identified risk factors. - Single, live, intrauterine . - biometry is consistent with the established gestational age. - No malformations were visualized on an early anatomic assessment, although some anatomical structures were suboptimally seen as detailed below. - The amniotic fluid volume is normal amount. - The placenta is posterior. - Not all structural malformations can be detected by ultrasound examination. Recommendations Return around 20 weeks for detailed anatomic survey Maternal Assessment Height 163 cm Height (ft) 5 ft Height (in) 4 in Physical Exam Initial weight (lb) 206 lb Initial BMI 35.36 kg/m Maternal assessment other: 1 Para 0 Method Transabdominal ultrasound examination. View: Suboptimal view: limited by position. Suboptimal view: limited by early gestational age Berger . Number of fetuses: 1 Dating LMP on: 03/11/2024 GA by LMP 16 w + 6 d TIO by LMP: 12/16/2024 GA by prior assessment 16 w + 6 d TIO by prior assessment: 12/16/2024 Ultrasound examination on: 07/07/2024 GA by U/S based upon: AC, BPD, Femur, HC GA by U/S 17 w + 1 d TIO by U/S: 12/14/2024 Assigned: based on stated TIO, selected on 07/07/2024 Assigned GA 16 w + 6 d Assigned TIO: 12/16/2024 General Evaluation Cardiac activity present. FHR 146 bpm. movements: present. Presentation: breech Placenta: Placental site: posterior Umbilical cord: Cord vessels: 3 vessel cord Amniotic fluid: Amount of AF: normal amount Biometry Standard BPD 35.6 mm 17w 0d 53% Hadlock OFD 48.1 mm 16w 4d 60% Nicolaides HC 134.8 mm 16w 5d 46% Chris Cerebellum tr 16.8 mm 17w 0d 48% Hill Nuchal fold 2.2 mm AC 122.4 mm 17w 6d 82% Hadlock Femur 23.6 mm 17w 1d 66% Chris Humerus 22.9 mm 17w 1d 66% Chris EFW 193 g 17w 2d 77% Hadlock EFW (lb) 0 lb EFW (oz) 7 oz EFW by: Hadlock (HC-AC-FL) Extended [employer] Log[employer] Supervisor 6.8 mm CM 4.0 mm 46% Nicolaides Extremities / Bony Struc FL / HC 0.18 88% Hadlock Other Structures FHR 146 bpm Anatomy Cranium: normal Lateral ventricles: normal Choroid plexus: normal Midline falx: normal Cerebellum: normal Cisterna magna: normal Lips: normal Face Coronal face: normal 4-chamber view: suboptimally visualized RVOT view: suboptimally visualized LVOT view: suboptimally visualized 3-vessel view: suboptimally visualized 1-[id number]-tqokbzp view: suboptimally visualized Heart / Thorax Diaphragm: suboptimal Cord insertion: normal Stomach: normal Kidneys: normal Bladder: normal Cervical spine: normal Thoracic spine: normal Lumbar spine: normal Sacral spine: normal Arms: normal Legs: normal Rt upper arm: normal Rt forearm: normal Rt hand: normal Lt upper arm: normal Lt forearm: normal Lt hand: normal Rt upper leg: normal Rt lower leg: normal Rt foot: normal Lt upper leg: normal Lt lower leg: normal Lt foot: normal Gender: Unspecified Wants to know sex: no Maternal Structures Uterus / Cervix Uterus: Visualized Cervix: Visualized Approach: Transabdominal Cervical length 32.9 mm Other: Patient declined transvaginal ultrasound for cervical length. Ovaries / Tubes / Adnexa Rt ovary: Visualized Lt ovary: Not visualized Performed By: Ita Patel RDMS, RVT Read By: Deborah Puente M.D. MATERNAL MEDICINE [facility] Radiology Study observation (narrative) [facility] Basic Metabolic Profile (BMP )on 06-18-2024 BUN/CRE 10.5 RATIO Normal 10-20 [facility] Comment on above: Performed By: #### L 500.2500 #### [facility] [address] [place], [address] CA,Total 9.3 mg/dL Normal 8.5-10.1 [facility] Comment on above: Performed By: #### L 500.2500 #### [facility] [address] [place], [address] Chloride [Moles/Vol] 107 mmol/L Normal 98-107 [facility] Comment on above: Performed By: #### L 500.2500 #### [facility] [address] [place], [address] CO2 [Moles/Vol] 25.0 mmol/L Normal 21.0-32.0 [facility] Comment on above: Performed By: #### L 500.2500 #### [facility] [address] [place], [address] Creatinine [Mass/Vol] 0.66 mg/dL Normal 0.55-1.02 [facility] Comment on above: Result Comment: The validity of the calculated GFR GFRAA in patients over 70 years has not been determined. Clinical correlation is essential. Performed By: #### L 500.2500 #### [facility] [address] [place], [address] ECRCL 136.19 ml/min Normal [facility] Comment on above: Performed By: #### L 500.2500 #### [facility] [address] [place], [address] EST GFR - AA 135 mL/min Normal >60 [facility] Comment on above: Result Comment: Afri can Qatari GFR Calc Performed By: #### L 500.2500 #### [facility] [address] [place], [address] GAP 7 Normal 5-15 [facility] Comment on above: Performed By: #### L 500.2500 #### [facility] [address] [place], [address] GFR/1.73 sq M.predicted among non-blacks MDRD (S/P/Bld) [Vol rate/Area] 112 mL/min/{1.73_m2} Normal >60 [facility] Comment on above: Result Comment: Non- GFR Calc Performed By: #### L 500.2500 #### [facility] [address] [place], [address] Glucose [Mass/Vol] 83 mg/dL Normal 74-106 [facility] Comment on above: Performed By: #### L 500.2500 #### [facility] [address] [place], [address] Potassium [Moles/Vol] 3.8 mmol/L Normal 3.5-5.1 [facility] Comment on above: Result Comment: Slig ht Hemolysis, Result may be falsely increased. Performed By: #### L 500.2500 #### [facility] [address] [place], [address] Sodium [Moles/Vol] 138 mmol/L Normal 136-145 [facility] Comment on above: Performed By: #### L 500.2500 #### [facility] [address] [place], [address] Urea nitrogen [Mass/Vol] 7 mg/dL Normal 7-18 [facility] Comment on above: Performed By: #### L 500.2500 #### [facility] [address] [place], [address] CNPLaura 06-18-2024 CNPN Telephone (OBGYW) HERMINIA GOTTLIEB ([id number]) 1995 F Date Time Provider Department 06/18/24 DENISA BENTLEY During your visit today, we recorded the following information about you: Lisa Pedro, RN 06/18/2024 8:30 AM Signed 14w1d Pt calling stating she started vomiting yesterday and tried eating; however, vomited a total of 5 times. Has been taking Zofran every 8 hours as directed for nausea. States she also placed Phenergan suppository at 4:15pm and 10:15pm and still vomited. Tried zofran again once phenergan wore off and vomited again.Continued to vomit this AM and has vomited a total of 2 times so far this morning. Having difficult time keeping liquids down. Pt states at the beginning of May she went to ER for vomiting and was given Reglan IV and it didn't help was given Rx zofran tablets and has been doing since as directed Does not feel as bad as she did when she went to ER in May; however, cannot keep anything down. Advised Pt, despite the fact that she does not feel as bad as she did last time she went to ER, if she is unable to keep any food/liquids down with fact that she has also been taking the antinausea medications for >24 hours then she needs to return to ER for IV hydration. F/U ER appt made for Friday (advised Pt to be seen on Friday, but Pt was not available at time of appt spot). Advised Pt that she needs to discuss with OB provider whether or not they feel it is appropriate for a zofran pump. Pt then asked if she should just not go to ER and keep OB appt if she can just get a zofran pump. Advised her that this RN is not a Dr, and cannot guarantee that they will prescribe the pump and if they do, it will not be an immediate thing as it will take some time to get things situated and ordered. Pt voiced understanding and did state she would go to [facility] ER. PIA Soto Jennifer, MD 06/18/2024 8:53 AM Signed noted Allergies As of Date: 06/18/2024 Noted Allergy Reaction SEASONAL ALLERGIES 10/15/2010 14 - Other: See Comments Comments: cough, sneeze,watery eyes Date Reviewed: 06/16/2024 Reviewed by: Annabelle Cason LPN - Fully Assessed Prescriptions as of 07/08/2024 - ondansetron (ZOFRAN) 8 mg tablet Take 1 tablet by mouth every 8 hours as needed for nausea/vomiting. - lamoTRIgine orally disintegrating (LAMICTAL ODT) 100 mg disintegrating tablet Take 1 tablet by mouth once daily. - aspirin, enteric coated (ECOTRIN LOW STRENGTH) 81 mg EC tablet Take 1 tablet by mouth once daily. - desvenlafaxine ER (PRISTIQ) 100 mg 24 hr tablet Take 1 tablet by mouth once daily. - PNV no.95/ferrous fum/folic ac ( ORAL) Take 1 tablet by mouth once daily. - pyridoxine HCl, vitamin B6, (VITAMIN B-6 ORAL) Take 25 mg by mouth once daily. - promethazine (PHENERGAN) 12.5 mg suppository 1 Suppository by RECTAL route every 6 hours as needed for nausea/vomiting. - valACYclovir (VALTREX) 1 gram Take 1 tablet by mouth twice daily. For cold sore outbreak - LORATADINE ORAL Take by mouth. Meds Comments as of 06/28/2016: Reviewed current med list, 09/14/2008. Chari Gan LPN Reviewed current med list, 07/04/2008. Chari Gan LPN Reviewed current med list, 06/08/2008. Chari Gan LPN Reviewed current med list, 07/31/2007. Chari Gan LPN 06/28 h on Prozac and control pills Problem List As Of Date 06/18/2024 Noted Resolved Recurrent major depressive disorder, in remissi*01/21/2019 Herpes simplex [B00.9] 01/21/2019 Episodic lightheadedness [R42] 09/06/2019 Anxiety and depression [F41.9, F32.A] 07/28/2020 Obesity in [O99.210] 05/12/2024 Cold sores [B00.1] 05/12/2024 History of suicide attempt [Z91.51] 05/12/2024 Supervision of high risk in first tri*05/12/2024 Nausea and vomiting in [O21.9] 05/12/2024 Rubella non-immune status, antepartum [O09.899,*06/14/2024 Encounter Status:Closed by LISA PEDRO on 07/08/24 Normal [facility] Emergency Department Summary on 06-18-2024 Emergency Department Summary [facility] Medical Records Department [address] [place] [address] Emergency Department Summary 06/18/24 MR#: [id number] Acct: [id number] Name: HERMINIA GOTTLIEB SARAH Rep #: [id number] : 1995 28 From: Stanislaw Weber MD PCP: RENEA Mccann Status:REG ER Location: ED HPI HPI - GI History of Present Illness Chief Complaint: Nausea/Vomiting Informant: patient Nausea/Vomiting/Emesi s GI Symptom: Positive for Nausea and Vomiting Onset: Weeks Severity: Mild Diarrhea/Melena/Hemat ochezia GI Symptom: Negative for Diarrhea, Melena or Hematochezia Associated Symptoms Associated Symptoms: Negative for Dysuria, Frequency or Urgency Narrative Narrative: 28-year-old female G1, P0 Ab0 approximately 14 weeks . Due date is mid December. Seeing the [facility] group. She has had nausea and vomiting intermittently for weeks. Denies any fever. No diarrhea. No dysuria. She came into day for nausea medication and IV fluids. Denies any abdominal pain. No vaginal bleeding. Otherwise the is going well. Prior similar symptoms: Yes Recent Illness/Hospitalizati on: No PFSH PFSH Medical History Seasonal allergies Home Medications ???Medication ???Instructions ???Recorded ???Last Taken ???Type fluoxetine 40 mg capsule 40 mg PO DAILY 01/08/19 Unknown Hi story multivitamin with minerals 1 ea PO DAILY 01/08/19 Unknown His tory norgestimate 0.25 mg-ethinyl 1 tab PO DAILY 01/08/19 Unknown Hi story estradiol 35 mcg tablet cephalexin 500 mg capsule 500 mg PO Q6 #28 CAPSULES 05/10/24 Unknown Rx ondansetron 4 mg disintegrating 4 mg PO Q8H PRN PRN Nausea #20 tab s 05/10/24 Unknown Rx tablet promethazine 25 mg rectal 25 mg NH Q6H PRN PRN Nausea #6 sup p 05/10/24 Unknown Rx suppository (Promethegan) ondansetron 4 mg disintegrating 4 mg PO Q6H PRN nausea and 5 Unknown Rx tablet vomiting #14 tabs Allergy/AdvReac Type Severity Reaction Status Date / Time No Known Allergies Allergy Verified 06/18/24 09:30 Family History no significant family his Surgical History History of appendectomy History of wisdom tooth extraction Social History household members: spouse Smoking Status: Never smoker ROS ROS ED ROS Narrative Nausea and vomiting. No abdominal pain. No dysuria. No fever. No diarrhea. Constitutional Constitutional ED: Denies chills or fever(s) ENT ENT ED: Denies ear pain Cardiovascular Cardiovascular: Denies chest pain Respiratory/Chest Respiratory/Chest: Denies cough Gastrointestinal Gastrointestinal: Reports nausea and vomiting; Denies abdominal pain, constipation, diarrhea or melena Genitourinary Genitourinary ED: Denies dysuria or hematuria Musculoskeletal Musculoskeletal: Denies arthralgias or back pain Integumentary Denies abscess Neurologic Neurologic: Denies headache(s) Psychiatric Psychiatric: Denies anxiety Endocrine Endocrinology: Denies polydipsia Hematologic/Lymphatic Hematologic/Lymphatic : Denies easy bleeding, easy bruising or lymphadenopathy Allergic/Immunologic Allergic/Immunologic ED: Denies mouth swelling, tongue swelling or urticaria EXAM Physical Exam Narrative Exam Narrative: 28-year-old female vital signs stable afebrile. Sitting upright in bed. No distress. H EENT exam pupils round reactive light. Dry mucous membranes. Neck nontender no lymphadenopathy. Lungs clear to auscultation bilaterally. Heart regular rhythm rate about 70 no murmur. Abdomen soft, nontender, nondistended normal bowel sounds without peritoneal signs. Gravid nontender uterus. Moving all 4 extremities. Nontender no edema. Normal strength. Back nontender. Neurologically she is awake alert no focal motor deficits. Const Vital Signs: 06/18/24 09:29 Temperature 98 F Temperature Source Temporal Pulse Rate 71 Respiratory Rate 14 Blood Pressure 115/59 L Blood Pressure Mean 77 Pulse Ox 100 Oxygen Delivery Method Room Air Positive well nourished and well developed; Negative for cachectic, contractures or unkempt General Appearance ED: well developed and NAD; Negative for unkempt, cachectic, contractures or pallor Nutritional Appearance: Negative for cachectic HEENT Reports dry mucous membranes normocephalic and atraumatic; Negative for trauma or tenderness Mouth ED: Yes dry mucous membranes Mouth: dry mucous membranes Eyes PERRL and EOMs intact bilaterally General Eye ED: Negative for pale conjunctiva or scleral icterus Neck no lymphadenopathy, supple and no JVD General: Negative for tenderness Lymph Lymphatic: Negative for other Resp normal respiratory effort a (more content not included)... [facility] Office Visit (GAVINROGELIO ) HERMINIA GOTTLIEB ([id number]) 1995 F Date Time Provider Department 06/16/24 5:20 PM [facility] During your visit today, we recorded the following information about you: Temperature Pulse Respiration Blood pressure 98.4 degrees 72/minute 16/minute 110/66 Weight 89.8 kg Candis Baez APRN.CNP 06/16/2024 6:27 PM Signed This is a 28 year old female who presents today with: Patient presents with: Acute Visit: cold HISTORY OF PRESENT ILLNESS: Herminia Gottlieb is a 28 year old female. Patient presents with: Acute Visit: cold Patient of Светлана Srinivasan CNP here in the office URI symptoms. Started with sore throat, cough, fatigue, and chills. Productive cough at times, yellow/clear mucus. Ongoing sinus congestion. Started Last Friday. Has been taking Robitussin and cough drops as needed. No SOB or fever. Symptoms gradually improving. Currently 13 weeks . PAST MEDICAL HISTORY: PAST MEDICAL HISTORY Diagnosis Date Appendicitis 01/2019 Cold sores Depression Previous suicide attempt Exercise-induced asthma PMH - PAST MEDICAL HISTORY OF 11/2004 normal color vision Varicella age 2 years PAST SURGICAL HISTORY Procedure Laterality Date EXTRACTION, ERUPTED TOOTH OR EXPOSED ROOT (ELEVATION AND/OR FORCEPS REMOVAL) LAPAROSCOPIC APPENDECTOMY 01/2019 ALLERGIES Seasonal Allergies MEDICATIONS Current Outpatient Medications Medication Sig ondansetron (ZOFRAN) 8 mg tablet Take 1 tablet by mouth every 8 hours as needed for nausea/vomiting. lamoTRIgine orally disintegrating (LAMICTAL ODT) 100 mg disintegrating tablet Take 1 tablet by mouth once daily. aspirin, enteric coated (ECOTRIN LOW STRENGTH) 81 mg EC tablet Take 1 tablet by mouth once daily. (Patient not taking: Reported on 06/09/2024) desvenlafaxine ER (PRISTIQ) 100 mg 24 hr tablet Take 1 tablet by mouth once daily. PNV no.95/ferrous fum/folic ac ( ORAL) Take 1 tablet by mouth once daily. pyridoxine HCl, vitamin B6, (VITAMIN B-6 ORAL) Take 25 mg by mouth once daily. promethazine (PHENERGAN) 12.5 mg suppository 1 Suppository by RECTAL route every 6 hours as needed for nausea/vomiting. valACYclovir (VALTREX) 1 gram Take 1 tablet by mouth twice daily. For cold sore outbreak LORATADINE ORAL Take by mouth. No current facility-administered medications for this visit. FAMILY HISTORY Problem Relation Age of Onset other (mental health) Mother Stroke Father other (Epilepsy) Father Anxiety disorder Sister Depression Sister Asthma Sister Prematurity Sister other (one kidney) Sister Anxiety disorder Brother No Known Problems Maternal Grandmother Stroke Maternal Grandfather Alzheimer's Disease Maternal Grandfather Heart disease Paternal Grandmother Stroke Paternal Grandmother Kidney failure Paternal Grandmother No Known Problems Paternal Grandfather Social History Tobacco Use Smoking status: Never Smokeless tobacco: Never Vaping Use Vaping status: Never Used Substance Use Topics Alcohol use: Not Currently Comment: rare Drug use: Never REVIEW OF SYSTEMS GENERAL: + Fatigue HEENT: + Sore Throat, Sinus Congestion NECK: Negative for lumps, goiter, pain and significant neck swelling RESPIRATORY: + Cough CARDIOVASCULAR: Negative for chest pain, leg swelling, orthopnea, or palpitations GI: No nausea, vomiting, or diarrhea/constipation . No hematochezia/melena. No heartburn or reflux symptoms. : No history of dysuria, frequency or incontinence MUSCULOSKELETAL: Negative for joint pain or swelling. SKIN: Negative for lesions, rash, and itching ENDOCRINE: Negative for cold or heat intolerance, polyuria, polydipsia and goiter NEURO: No history of headaches, syncope, paralysis, seizures or tremors MOOD: Negative for depression, anxiety, or suicidal ideation. EXAM: BP 110/66 Pulse 72 Temp 36.9 ?C (98.4 ?F) (Left Tympanic) Resp 16 Wt 89.8 kg (197 lb 15.6 oz) LMP 03/11/2024 SpO2 99% BMI 33.98 kg/m? PHYSICAL EXAM: General Appearance: Well appearing, alert, in no acute distress, well-hydrated, well nourished. Skin: Skin color, texture, turgor normal, no suspicious rashes or lesions. Head: Normocephalic, no masses, lesions, tenderness or abnormalities. Eyes: Anicteric sclera. Extraocular movements are intact. Ears: External ears normal, canals clear, Tm's dull. Nose/Sinuses: Positive findings: mucosa erythematous and swollen, Mild frontal and maxillary sinus tenderness. Oropharynx: Positive findings: mild oropharyngeal erythema. Neck: Supple, no adenopathy; thyroid symmetric, normal size, no bruits. Lungs: Lungs clear to auscultation. No wheezing, rhonchi, rales. Heart: RRR without murmur, gallop, or rubs. No ectopy. Extremities: No deformities, edema, skin discoloration, clubbing or cyanosis. Good capillary refill. Peripheral Pulses: Nor (more content not included)... Normal [facility] STREP A MOLECULAR (POC)on Procedural Control Valid [facility] Strep A (POCT) Negative Negative [facility] CNPNon 06-15-2024 CNPN Telephone (OBGYWM) HERMINIA GOTTLIEB ([id number]) 1995 F Date Time Provider Department 06/15/24 EMILEE ROSE During your visit today, we recorded the following information about you: Candis Rogers 06/15/2024 3:48 PM Signed Patient called to report that she was advised by the provider to schedule 16 wk US and OB (around 07/07/24). Emilee Rose APRN.CNM 06/10/2024 3:04 PM EST NT US normal. Please update PN record. Please assist in scheduling 16wk and 20wk US with [facility] same day. Emilee Rose APRN.CNM Please submit orders and contact patient to assist with scheduling. Emilee Rose APRN.CNM 06/15/2024 5:20 PM Signed Order signed. ODILON June Lindsey, RN 06/16/2024 9:34 AM Signed Patient notified and voiced understanding, transferred to PSS to schedule. Ita Hayden RN Allergies As of Date: 06/15/2024 Noted Allergy Reaction SEASONAL ALLERGIES 10/15/2010 14 - Other: See Comments Comments: cough, sneeze,watery eyes Date Reviewed: 06/09/2024 Reviewed by: Mt Baron MA - Fully Assessed Reason for Visit: Orders [681] Appointment [186] Primary Visit Diagnosis:Obesity in [O99.210] Other Visit Diagnosis:Supervision of high risk in first trimester [O09.91] Order(s):OBSTETRIC ULTRASOUND [facility] [[id number]] Order #: [id number]: 1 FUTURE Prescriptions as of 06/16/2024 - ondansetron (ZOFRAN) 8 mg tablet Take 1 tablet by mouth every 8 hours as needed for nausea/vomiting. - lamoTRIgine orally disintegrating (LAMICTAL ODT) 100 mg disintegrating tablet Take 1 tablet by mouth once daily. - aspirin, enteric coated (ECOTRIN LOW STRENGTH) 81 mg EC tablet Take 1 tablet by mouth once daily. - desvenlafaxine ER (PRISTIQ) 100 mg 24 hr tablet Take 1 tablet by mouth once daily. - PNV no.95/ferrous fum/folic ac ( ORAL) Take 1 tablet by mouth once daily. - pyridoxine HCl, vitamin B6, (VITAMIN B-6 ORAL) Take 25 mg by mouth once daily. - promethazine (PHENERGAN) 12.5 mg suppository 1 Suppository by RECTAL route every 6 hours as needed for nausea/vomiting. - valACYclovir (VALTREX) 1 gram Take 1 tablet by mouth twice daily. For cold sore outbreak - LORATADINE ORAL Take by mouth. Meds Comments as of 06/28/2016: Reviewed current med list, 09/14/2008. Chari Gan LPN Reviewed current med list, 07/04/2008. Chari Gan LPN Reviewed current med list, 06/08/2008. Chari Gan LPN Reviewed current med list, 07/31/2007. Chari Gan LPN 06/28 [facility] on Prozac and control pills Problem List As Of Date 06/15/2024 Noted Resolved Recurrent major depressive disorder, in remissi*01/21/2019 Herpes simplex [B00.9] 01/21/2019 Episodic lightheadedness [R42] 09/06/2019 Anxiety and depression [F41.9, F32.A] 07/28/2020 Obesity in [O99.210] 05/12/2024 Cold sores [B00.1] 05/12/2024 History of suicide attempt [Z91.51] 05/12/2024 Supervision of high risk in first tri*05/12/2024 Nausea and vomiting in [O21.9] 05/12/2024 Rubella non-immune status, antepartum [O09.899,*06/14/2024 Encounter Status:Closed by ITA HAYDEN on 06/16/24 [facility] Telephone (OBGYWM) HERMINIA GOTTLIEB ([id number]) 1995 F Date Time Provider Department 06/15/24 EMILEE ROSE During your visit today, we recorded the following information about you: Mt Baron MA 06/15/2024 3:42 PM Signed Received [facility] paperwork. Completed and on providers desk for signature. STANISLAV Baez Morgan, MA 06/24/2024 12:07 PM Signed [facility] paperwork was completed and faxed back to employer. Mt Baron MA Allergies As of Date: 06/15/2024 Noted Allergy Reaction SEASONAL ALLERGIES 10/15/2010 14 - Other: See Comments Comments: cough, sneeze,watery eyes Date Reviewed: 06/09/2024 Reviewed by: Mt Baron MA - Fully Assessed Reason for Visit: [facility] Paperwork [4185] Prescriptions as of 06/24/2024 - ondansetron (ZOFRAN) 8 mg tablet Take 1 tablet by mouth every 8 hours as needed for nausea/vomiting. - lamoTRIgine orally disintegrating (LAMICTAL ODT) 100 mg disintegrating tablet Take 1 tablet by mouth once daily. - aspirin, enteric coated (ECOTRIN LOW STRENGTH) 81 mg EC tablet Take 1 tablet by mouth once daily. - desvenlafaxine ER (PRISTIQ) 100 mg 24 hr tablet Take 1 tablet by mouth once daily. - PNV no.95/ferrous fum/folic ac ( ORAL) Take 1 tablet by mouth once daily. - pyridoxine HCl, vitamin B6, (VITAMIN B-6 ORAL) Take 25 mg by mouth once daily. - promethazine (PHENERGAN) 12.5 mg suppository 1 Suppository by RECTAL route every 6 hours as needed for nausea/vomiting. - valACYclovir (VALTREX) 1 gram Take 1 tablet by mouth twice daily. For cold sore outbreak - LORATADINE ORAL Take by mouth. Meds Comments as of 06/28/2016: Reviewed current med list, 09/14/2008. Chari Gan LPN Reviewed current med list, 07/04/2008. Chari Gan LPN Reviewed current med list, 06/08/2008. Chari Gan LPN Reviewed current med list, 07/31/2007. Chari Malik BELL 06/28 [facility] on Prozac and control pills Problem List As Of Date 06/15/2024 Noted Resolved Recurrent major depressive disorder, in remissi*01/21/2019 Herpes simplex [B00.9] 01/21/2019 Episodic lightheadedness [R42] 09/06/2019 Anxiety and depression [F41.9, F32.A] 07/28/2020 Obesity in [O99.210] 05/12/2024 Cold sores [B00.1] 05/12/2024 History of suicide attempt [Z91.51] 05/12/2024 Supervision of high risk in first tri*05/12/2024 Nausea and vomiting in [O21.9] 05/12/2024 Rubella non-immune status, antepartum [O09.899,*06/14/2024 Encounter Status:[facility] HERMINIA GOTTLIEB ([id number]) 1995 F Date Time Provider Department 06/15/24 DYAN COREY During your visit today, we recorded the following information about you: Evelyn Neves LPN 06/15/2024 3:42 PM Signed Pt calls to schedule an appt. Advised pt she would be called back by nurse to schedule. RAY Cordoba Fonda, LPN 06/16/2024 11:38 AM Signed Appointment scheduled on 07/27/24 @ 4 pm. Mahi Hull LPN Allergies As of Date: 06/15/2024 Noted Allergy Reaction SEASONAL ALLERGIES 10/15/2010 14 - Other: See Comments Comments: cough, sneeze,watery eyes Date Reviewed: 06/09/2024 Reviewed by: Mt Baron MA - Fully Assessed Reason for Visit: Behavioral Health Appointment [4130] Prescriptions as of 06/28/2024 - ondansetron (ZOFRAN) 8 mg tablet Take 1 tablet by mouth every 8 hours as needed for nausea/vomiting. - lamoTRIgine orally disintegrating (LAMICTAL ODT) 100 mg disintegrating tablet Take 1 tablet by mouth once daily. - aspirin, enteric coated (ECOTRIN LOW STRENGTH) 81 mg EC tablet Take 1 tablet by mouth once daily. - desvenlafaxine ER (PRISTIQ) 100 mg 24 hr tablet Take 1 tablet by mouth once daily. - PNV no.95/ferrous fum/folic ac ( ORAL) Take 1 tablet by mouth once daily. - pyridoxine HCl, vitamin B6, (VITAMIN B-6 ORAL) Take 25 mg by mouth once daily. - promethazine (PHENERGAN) 12.5 mg suppository 1 Suppository by RECTAL route every 6 hours as needed for nausea/vomiting. - valACYclovir (VALTREX) 1 gram Take 1 tablet by mouth twice daily. For cold sore outbreak - LORATADINE ORAL Take by mouth. Meds Comments as of 06/28/2016: Reviewed current med list, 09/14/2008. Chari Gan LPN Reviewed current med list, 07/04/2008. Chari Gan LPN Reviewed current med list, 06/08/2008. Chari Gan LPN Reviewed current med list, 07/31/2007. Chari Gan LPN 06/28 [facility] [place] on Prozac and control pills Problem List As Of Date 06/15/2024 Noted Resolved Recurrent major depressive disorder, in remissi*01/21/2019 Herpes simplex [B00.9] 01/21/2019 Episodic lightheadedness [R42] 09/06/2019 Anxiety and depression [F41.9, F32.A] 07/28/2020 Obesity in [O99.210] 05/12/2024 Cold sores [B00.1] 05/12/2024 History of suicide attempt [Z91.51] 05/12/2024 Supervision of high risk in [facility] tri*05/12/2024 Nausea and vomiting in [O21.9] 05/12/2024 Rubella non-immune status, antepartum [O09.899,*06/14/2024 Encounter Status:Closed by EVELYN NEVES on 06/28/24 Normal [facility] CBC W Auto Differential pane l (Bld)on 06-09-2024 Basophils (Bld) [#/Vol] 10*3/uL Normal <0.11 [facility] Comment on above: Order Comment: Speci men Type: BLOOD SPECIMENOrdering Facility: [facility] Address: [address] [place] [address] Performed By: #### 5 7021-8 ####[facility] LABCLIA [id number] [place] [address] [place] Basophils/100 WBC (Bld) 0.2 % Normal [facility] Comment on above: Order Comment: Speci men Type: BLOOD SPECIMENOrdering Facility: [facility] Address: [address] [place] [address] Performed By: #### 5 7021-8 ####[facility] LABCLIA [id number] [place] [address] [place] Differential cell count method Nom (Bld) Auto Normal [facility] Comment on above: Order Comment: Speci men Type: BLOOD SPECIMENOrdering Facility: [facility] Address: [address] [place] [address] Performed By: #### 5 7021-8 ####[facility] LABCLIA [id number] [place] [address] [place] Eosinophils (Bld) [#/Vol] 0.04 10*3/uL Normal <0.46 [facility] Comment on above: Order Comment: Speci men Type: BLOOD SPECIMENOrdering Facility: [facility] Address: [address] [place] [address] Performed By: #### 5 7021-8 ####[facility] LABCLIA [id number] [place] [address] [place] Eosinophils/100 WBC (Bld) 0.5 % Normal [facility] Comment on above: Order Comment: Speci men Type: BLOOD SPECIMENOrdering Facility: [facility] Address: [address] [place] [address] Performed By: #### 5 7021-8 ####[facility] LABCLIA [id number] [place] [address] [place] Hematocrit (Bld) [Volume fraction] 40.1 % Normal 36.0-46.0 [facility] Comment on above: Order Comment: Speci men Type: BLOOD SPECIMENOrdering Facility: [facility] Address: [address] [place] [address] Performed By: #### 5 7021-8 ####[facility]CLIA [id number] [place] [address] [place] Hemoglobin (Bld) [Mass/Vol] 12.9 g/dL Normal 11.5-15.5 [facility] Comment on above: Order Comment: Speci men Type: BLOOD SPECIMENOrdering Facility: [facility] Address: [address] [place] [address] Performed By: #### 5 7021-8 ####[facility]CLIA [id number] [place] [address] [place] Immature granulocytes (Bld) [#/Vol] 10*3/uL Normal <0.10 [facility] Comment on above: Order Comment: Speci men Type: BLOOD SPECIMENOrdering Facility: [facility] Address: [address] [place] [address] Performed By: #### 5 7021-8 ####[facility]CLIA [id number] [place] [address] [place] Immature granulocytes/100 WBC (Bld) 0.2 % Normal [facility] Comment on above: Order Comment: Speci men Type: BLOOD SPECIMENOrdering Facility: [facility] Address: [address] [place] [address] Performed By: #### 5 7021-8 ####[facility]CLIA [id number] [place] [address] [place] Lymphocytes (Bld) [#/Vol] 1.50 10*3/uL Normal 1.00-4.00 [facility] Comment on above: Order Comment: Speci men Type: BLOOD SPECIMENOrdering Facility: [facility] Address: [address] [place] [address] Performed By: #### 5 7021-8 ####[facility] LABCLIA [id number] [place] [address] [place] Lymphocytes/100 WBC (Bld) 18.7 % Normal [facility] Comment on above: Order Comment: Speci men Type: BLOOD SPECIMENOrdering Facility: [facility] Address: [address] [place] [address] Performed By: #### 5 7021-8 ####[facility] LABIA [id number] [place] [address] [place] MCH (RBC) [Entitic mass] 27.3 pg Normal 26.0-34.0 [facility] Comment on above: Order Comment: Speci men Type: BLOOD SPECIMENOrdering Facility: [facility] Address: [address] [place] [address] Performed By: #### 5 7021-8 ####[facility] LABCLIA [id number] [place] [address] [place] MCHC (RBC) [Mass/Vol] 32.2 g/dL Normal 30.5-36.0 [facility] Comment on above: Order Comment: Speci men Type: BLOOD SPECIMENOrdering Facility: [facility] Address: [address] [place] [address] Performed By: #### 5 7021-8 ####[facility]CLIA [id number] [place] [address] [place] MCV (RBC) [Entitic vol] 85.0 fL Normal 80.0-100.0 [facility] Comment on above: Order Comment: Speci men Type: BLOOD SPECIMENOrdering Facility: [facility] Address: [address] [place] [address] Performed By: #### 5 7021-8 ####[facility]CLIA [id number] [place] [address] [place] Monocytes (Bld) [#/Vol] 0.56 10*3/uL Normal <0.87 [facility] Comment on above: Order Comment: Speci men Type: BLOOD SPECIMENOrdering Facility: [facility] Address: [address] [place] [address] Performed By: #### 5 7021-8 ####[facility] LABCLIA [id number] [place] [address] [place] Monocytes/100 WBC (Bld) 7.0 % Normal [facility] Comment on above: Order Comment: Speci men Type: BLOOD SPECIMENOrdering Facility: [facility] Address: [address] [place] [address] Performed By: #### 5 7021-8 ####[facility]CLIA [id number] [place] [address] [place] Neutrophils (Bld) [#/Vol] 5.87 10*3/uL Normal 1.45-7.50 [facility] Comment on above: Order Comment: Speci men Type: BLOOD SPECIMENOrdering Facility: [facility] Address: [address] [place] [address] Performed By: #### 5 7021-8 ####[facility]CLIA [id number] [place] [address] [place] Neutrophils/100 WBC (Bld) 73.4 % Normal [facility] Comment on above: Order Comment: Speci men Type: BLOOD SPECIMENOrdering Facility: [facility] Address: [address] [place] [address] Performed By: #### 5 7021-8 ####[facility] LABIA [id number] [place] [address] [place] Nucleated RBC (Bld) [#/Vol] 10*3/uL Normal <0.01 [facility] Comment on above: Order Comment: Speci men Type: BLOOD SPECIMENOrdering Facility: [facility] Address: [address] [place] [address] Performed By: #### 5 7021-8 ####[facility] [id number] [place] [address] [place] Nucleated RBC/100 WBC (Bld) [Ratio] 0.0 /100 WBC Normal [facility] Comment on above: Order Comment: Speci men Type: BLOOD SPECIMENOrdering Facility: [facility] Address: [address] [place] [address] Performed By: #### 5 7021-8 ####[facility] LABIA [id number] [place] [address] [place] Platelet mean volume (Bld) [Entitic vol] 10.6 fL Normal 9.0-12.7 [facility] Comment on above: Order Comment: Speci men Type: BLOOD SPECIMENOrdering Facility: [facility] Address: [address] [place] [address] Performed By: #### 5 7021-8 ####[facility] LABIA [id number] [place] [address] [place] Platelets (Bld) [#/Vol] 252 10*3/uL Normal 150-400 [facility] Comment on above: Order Comment: Speci men Type: BLOOD SPECIMENOrdering Facility: [facility] Address: [address] [place] [address] Result Comment: No c lot detected. Performed By: #### 5 7021-8 ####[facility]CLIA [id number] [place] [id number] [place] RBC (Bld) [#/Vol] 4.72 10*6/uL Normal 3.90-5.20 [facility] Comment on above: Order Comment: Speci men Type: BLOOD SPECIMENOrdering Facility: [facility] Address: [address] [place] [address] Performed By: #### 5 7021-8 ####[facility]CLIA [id number] [place] [id number] [place] WBC (Bld) [#/Vol] 8.01 10*3/uL Normal 3.70-11.00 [facility] Comment on above: Order Comment: Speci men Type: BLOOD SPECIMENOrdering Facility: [facility] Address: [address] [place] [address] Performed By: #### 5 7021-8 ####[facility] LABCLIA [id number] [place] [id number] [place] nuchal translucency me asured by USon 06-09-2024 Indication First trimester anatomic survey Maternal obesity, BMI >35 Impression REMOTE READ The patient is referred for a first trimester anatomy scan including nuchal translucency measurement as clinically indicated. - Single, live, intrauterine . - Ethel rump length measurement is consistent with the established gestational age. - No malformations visualized on incomplete first trimester anatomic assessment. - The nuchal translucency measurement is 1.4 mm. - Not all structural malformations can be detected by ultrasound examination. Maternal Structures: Right Ovary: Size 25 mm x 25 mm x 12 mm Recommendations - A standard anatomic survey at 16 weeks can be offered and a detailed exam at 20 weeks is recommended for increased risk. Maternal Assessment Height 163 cm Height (ft) 5 ft Height (in) 4 in Physical Exam Initial weight (lb) 206 lb Initial BMI 35.36 kg/m Maternal assessment other: 1 Para 0 Method Transabdominal ultrasound examination Berger . Number of fetuses: 1 Dating LMP on: 03/11/2024 GA by LMP 12 w + 6 d TIO by LMP: 12/16/2024 GA by prior assessment 12 w + 6 d TIO by prior assessment: 12/16/2024 Ultrasound examination on: 06/09/2024 GA by U/S based upon: CRL GA by U/S 13 w + 0 d TIO by U/S: 12/15/2024 Assigned: based on stated TIO, selected on 06/09/2024 Assigned GA 12 w + 6 d Assigned TIO: 12/16/2024 General Evaluation Cardiac activity present Placenta: posterior Cord vessels: 3 vessel cord Amniotic fluid: normal amount Biometry Standard FHR 167 bpm CRL 67.0 mm 13w 0d 52% Hadlock NT 1.40 mm First Trimester Anatomy Calvarium: normal Falx cerebri: normal Choroid plexus: normal Profile: normal Nasal bone: normal Retronasal triangle: normal Maxilla: normal Mandible: normal Nuchal translucency: Unremarkable Situs: normal Cardiac position: normal Cardiac axis: normal 4-chamber view: suboptimal 4-chamber view with color: suboptimal 7-mavwsy-[id number] view: suboptimal Abdominal cord insertion: normal Stomach: normal Kidneys: visualized Bladder: normal Color doppler of perivesical umbilical arteries: normal Vertebral alignment: normal Arms: normal Hands: normal Legs: normal Feet: normal Maternal Structures Uterus / Cervix Uterus: Visualized Uterus length 130 mm Uterus width 85 mm Uterus height 71 mm Uterus Vol 411.7 cm Ovaries / Tubes / Adnexa Rt ovary: Visualized Rt ovary D1 25 mm Rt ovary D2 25 mm Rt ovary D3 12 mm Rt ovary Vol 3.9 cm Lt ovary: Not visualized Performed By: Ita Patel RDMS, RVT Read By: Deborah Puente M.D. MATERNAL MEDICINE [facility] Radiology Study observation (narrative) [facility] HBV surface Ag Ser Qlon 02-0 HBV surface Ag Ql (S) Negative Normal Negative [facility] Comment on above: Order Comment: Speci men Type: BLOOD SPECIMENOrdering Facility: [facility] Address: [address] [place] [address] Performed By: #### 3 1201-7, 5195-3, 37946-5 ####[facility]CLIA [id number] [address] [place] HCV Ab Ser Qlon 06-09-2024 HCV Ab Ql (S) Negative Normal Negative [facility] Comment on above: Order Comment: Herman plascencia Type: BLOOD SPECIMEN [facility] Address: [address] [place] [address] Result Comment: The result suggests no evidence of active infection with Hepatitis C virus. Should recent infection be suspected, repeat testing may be considered 4-6 weeks after this draw. Performed By: #### L [id number] #### [facility] CLIA [id number] [address] [place] [address] [place] HGB ELECTROPHORESIS FOR EVAL (LAB ORDER)on 06-09-2024 Hemoglobin A (Bld) [Mass fraction] 97.6 % Normal 96.2-98.0 [facility] Comment on above: Order Comment: Herman plascencia Type: BLOOD SPECIMENOrdering Facility: [facility] Address: [address] [place] [address] Performed By: #### L [id number], HGBELEV ####[facility]CLIA [id number] [place] [address] [place] Hemoglobin A2 (Bld) [Mass fraction] 2.4 % Normal 2.0-3.1 [facility] Comment on above: Order Comment: Herman plascencia Type: BLOOD SPECIMENOrdering Facility: [facility] Address: [address] [place] [address] Performed By: #### L [id number], HGBELEV ####[facility]CLIA [id number] [place] [address] [place] Hemoglobin Unsp Elph (Bld) [Mass fraction] No abnormal hemoglobin identified. Normal No abnormal hemoglobin identified. [facility] Comment on above: Order Comment: Herman plascencia Type: BLOOD SPECIMENOrdering Facility: [facility] Address: [address] [place] [address] Performed By: #### L [id number], HGBELEV ####[facility]CLIA [id number] [place] [address] [place] HGB EVALUATION CASCADE INTER Archie 06-09-2024 Hemoglobin pattern (Bld) [Interp] Reviewed by Wendy Sampson M.D., Ph.D Normal [facility] Comment on above: Order Comment: Speci men Type: BLOOD SPECIMENOrdering Facility: [facility] Address: [address] [place] [address] Performed By: #### L [id number], HGBELEV ####[facility]CLIA [id number] [place] [address] [place] INTERPRETATION (HGB EVAL) Normal [facility] Comment on above: Order Comment: Speci men Type: BLOOD SPECIMENOrdering Facility: [facility] Address: [address] [place] [address] Result Comment: Hemo globins were analyzed by capillary electrophoresis and CBC red cell parameters were reviewed. No abnormal hemoglobin is identified. There is a normal hemoglobin capillary electrophoresis pattern. Performed By: #### L [id number], HGBELEV ####[facility]IA [id number] [place] [address] [place] HIV 1+2 Ab IA Qlon HIV 1 and 2 Ab IA.rapid Nom (S/P/Bld) Normal [facility] Comment on above: Order Comment: Speci men Type: BLOOD SPECIMENOrdering Facility: [facility] Address: [address] [place] [address] Result Comment: Test not indicated. Performed By: #### 3 1201-7, 5195-3, 60582-7 ####[facility] LABIA [id number] [place] [address] [place] HIV 1+2 Ab+HIV1 p24 Ag IA Ql Non-Reactive Normal Nonreactive [facility] Comment on above: Order Comment: Speci men Type: BLOOD SPECIMENOrdering Facility: [facility] Address: [address] [place] [address] Performed By: #### 3 1201-7, 5195-3, 06495-1 ####[facility] LABIA [id number] [place] [address] [place] HIV immunoassay testing algorithm interpretation (S/P/Bld) [Interp] Normal [facility] Comment on above: Order Comment: Speci men Type: BLOOD SPECIMENOrdering Facility: [facility] Address: [address] [place] [address] Result Comment: No e vidence of HIV-1 or HIV-2 infection. Should recent infection be suspected, repeat testing may be considered 2-3 weeks after this draw. [place] Rev. Code 3701.243(E): This information has been disclosed to you from confidential records protected from disclosure by state law. ???You shall make no further disclosure of this information without the specific, written, and informed release of the individual to whom it pertains or as otherwise permitted by state law. A general authorization for the release of medical or other information is not sufficient for the purpose of the release of HIV test results or diagnoses. Performed By: #### 3 1201-7, 5195-3, 35540-7 ####[facility] LABIA [id number] [place] [address] [place] HbA1c (Bld)on 06-09-2024 Average glucose Estimated from glycated hemoglobin (Bld) [Mass/Vol] 97 mg/dL Normal [facility] Comment on above: Order Comment: Speci men Type: BLOOD SPECIMENOrdering Facility: [facility] Address: [address] [place] [address] Result Comment: eAG: (Estimated average glucose) is a calculated value from HgbA1c and is manufacturers service representative of the average blood glucose level in the last 2-3 month period. Performed By: #### 5 5454-3 ####[facility] [id number] [place] [address] [place] HbA1c (Bld) [Mass fraction] 5.0 % Normal 4.3-5.6 [facility] Comment on above: Order Comment: Speci men Type: BLOOD SPECIMENOrdering Facility: [facility] Address: [address] [place] [address] Result Comment: Amer [place] Diabetes Association guidelines indicate that patients with HgbA1c in the range 5.7-6.4% are at increased risk for development of diabetes, and intervention by lifestyle modification may be beneficial. HgbA1c greater or equal to 6.5% is considered diagnostic of diabetes. Performed By: #### 5 5454-3 ####[facility] [id number] [place] [address] [place] RBC PARAMETERS FOR HB IDon 0 06-09-2024 Erythrocyte distribution width (RBC) [Ratio] 13.0 % Normal 11.5-15.0 [facility] Comment on above: Order Comment: Speci men Type: BLOOD SPECIMEN [facility] Address: [address] [place] [address] Performed By: #### L [id number] #### [facility] CLIA [id number] [address] [place] [address] [place] Order Comment: Speci men Type: BLOOD SPECIMENOrdering Facility: [facility] Address: [address] [place] [address] Performed By: #### 5 7021-8 ####[facility] [id number] [place] [address] [place] Hematocrit (Bld) [Volume fraction] 40.5 % Normal 36.0-46.0 [facility] Comment on above: Order Comment: Speci men Type: BLOOD SPECIMEN [facility] Address: [address] [place] [address] Performed By: #### L [id number] #### [facility] CLIA [id number] [address] [place] [address] [place] Hemoglobin (Bld) [Mass/Vol] 12.7 g/dL Normal 11.5-15.5 [facility] Comment on above: Order Comment: Speci men Type: BLOOD SPECIMEN [facility] Address: [address] [place] [address] Performed By: #### L [id number] #### [facility] CLIA [id number] [address] [place] [address] [place] MCH (RBC) [Entitic mass] 27.1 pg Normal 26.0-34.0 [facility] Comment on above: Order Comment: Speci men Type: BLOOD SPECIMEN [facility] Address: [address] [place] [address] Performed By: #### L [id number] #### [facility] CLIA [id number] [address] [place] [address] [place] MCHC (RBC) [Mass/Vol] 31.4 g/dL Normal 30.5-36.0 [facility] Comment on above: Order Comment: Speci men Type: BLOOD SPECIMEN [facility] Address: [address] [place] [address] Performed By: #### L [id number] #### [facility] CLIA [id number] [address] [place] [address] [place] MCV (RBC) [Entitic vol] 86.4 fL Normal 80.0-100.0 [facility] Comment on above: Order Comment: Speci men Type: BLOOD SPECIMEN [facility] Address: [address] [place] [address] Performed By: #### L [id number] #### [facility] CLIA [id number] [address] [place] [address] [place] RBC (Bld) [#/Vol] 4.69 10*6/uL Normal 3.90-5.20 [facility] Comment on above: Order Comment: Speci men Type: BLOOD SPECIMEN [facility] Address: [address] [place] [address] Performed By: #### L [id number] #### [facility] CLIA [id number] [address] [place] [address] [place] RUBELLA IGG ANTIBODYon 06-09 RUBELLA IGG AB, QUAL Negative Abnormal Positive [facility] Comment on above: Order Comment: Redi temo Type: BLOOD SPECIMEN [facility] Address: [address] [place] [address] Result Comment: The result suggests no history of Rubella vaccination or exposure to Rubella virus, however, some individuals with past history of Rubella vaccination may test negative using this test as immunity to Rubella virus wanes over time after vaccination. Please correlate with vaccination history if applicable. Performed By: #### L [id number] #### [facility] CLIA [id number] [address] [place] [address] [place] Reagin and Treponema pallidu m IgG and IgM [Interp]on 06-09-2024 T. pallidum IgG+IgM IA Ql (S) Non-Reactive Normal Nonreactive [facility] Comment on above: Order Comment: Speci men Type: BLOOD SPECIMENOrdering Facility: [facility] Address: [address] [place] [address] Performed By: #### 3 1201-7, 5195-3, 29727-9 ####[facility] [id number] [place] [address] [place] Reagin+T pallidum IgG+IgM Se rPl-Impon 06-09-2024 Reagin and Treponema pallidum IgG and IgM [Interp] Cannot exclude recent Treponemal infection if specimen collected within 7-10 days after appearance of suspect lesions or 2-3 weeks after an exposure. Clinical correlation is required. Normal [facility] Comment on above: Order Comment: Herman plascencia Type: BLOOD SPECIMENOrdering Facility: [facility] Address: [address] [place] [address] Performed By: #### 3 1201-7, 5195-3, 14641-0 ####[facility] [id number] [place] [address] [place] TYPE + SCREEN PRENATALon ABO A Normal [facility] Comment on above: Order Comment: Speci men Type: BLOOD SPECIMEN [facility] Address: [address] [place] [address] Performed By: #### L [id number] #### [facility] CLIA [id number] [address] [place] [address] [place] Rh Nom (Bld) Positive Normal [facility] Comment on above: Order Comment: Speci men Type: BLOOD SPECIMEN [facility] Address: [address] [place] [address] Performed By: #### L [id number] #### [facility] CLIA [id number] [address] [place] [address] [place] TYPE AND SCREEN EXPIRATION 06/12/2024 23:59 Normal [facility] Comment on above: Order Comment: Speci men Type: BLOOD SPECIMEN [facility] Address: [address] [place] [address] Performed By: #### L [id number] #### [facility] CLIA [id number] [address] [place] [address] [place] CNOVon 06-01-2024 CNOV Office Visit (PSWSTR ) HERMINIA GOTTLIEB ([id number]) 1995 F Date Time Provider Department 06/01/24 4:30 PM DYAN COREY PSWSTR During your visit today, we recorded the following information about you: Pulse Respiration Blood pressure Weight 88/minute 18/minute 134/60 93.2 kg Dyan Corey, SECURITY OPERATIONS CENTER ANALYST.PATTERN MARKING SUPERVISOR 06/09/2024 12:03 AM Signed FOLLOW UP - PSYCHIATRIC PROGRESS NOTE PATIENT: Herminia Hindsm DATE: June 01, 2024 Visit Type:In person All information is from Patient report except when noted. This evaluation is NOT intended for forensic, disability or child custody purposes. CC: Presenting today for follow up regarding psychiatric medication management. HPI: Treatment Plan from Last Visit on 03/29/2024: TREATMENT PLAN: Continue Lamictal at the same dose to address mood related symptoms. Continue Pristiq at the same dose to address anxiety symptoms. Utilize light therapy to help with seasonal mood changes. Continue individual psychotherapy every 2 weeks with her current provider. Follow up in 3 months or sooner if needed. Today Herminia shares that she is 11 weeks . She had a lot of concerns with nausea and vomiting during her first trimester. Had to go to the ER for fluid hydration once. She has been able to gain some weight. Able to eat consistently. Improved more recently. She is trying to stay hydrated. She is sleeping on the couch. Sleeping through the night. Sleeping on the recliner helps with her nausea as well. Shares that her mood has been stable. Reviewed all the medication related information and considerations during in detail. Verbalized feeling relieved after having this discussion as she feels more comfortable about her use of medication. Does plan on and considerations with period and her medications was also reviewed. Will be moving to a new house on June 19. Looking forward to this move. Denies it being a stressful thing at this time. Interval Progress: Same PATIENT DATA: Generalized Anxiety Disorder Scale (SUKHWINDER-7) 12/10/2023 03/28/2024 05/31/2024 SUKHWINDER - 7 SCORES Score 4 5 4 (0-4) minimal anxiety, (5-9) mild anxiety, (10-14) moderate anxiety, (15-21) severe anxiety Patient Health Questionnaire (PHQ-9) 03/28/2024 05/10/2024 05/31/2024 PHQ-9 Score 8 5 7 (0-4) minimal depression, (5-9) mild depression, (10-14) moderate depression, (15-19) moderately severe depression, (20-27) severe depression PAST MEDICAL HISTORY Diagnosis Date Appendicitis 01/2019 Cold sores Depression Previous suicide attempt Exercise-induced asthma PMH - PAST MEDICAL HISTORY OF 11/2004 normal color vision Varicella age 2 years PAST SURGICAL HISTORY Procedure Laterality Date EXTRACTION, ERUPTED TOOTH OR EXPOSED ROOT (ELEVATION AND/OR FORCEPS REMOVAL) LAPAROSCOPIC APPENDECTOMY 01/2019 ALLERGIES Allergen Reactions Seasonal Allergies Other: See Comments cough, sneeze,watery eyes Current Outpatient Medications on File Prior to Visit Medication Sig aspirin, enteric coated (ECOTRIN LOW STRENGTH) 81 mg EC tablet Take 1 tablet by mouth once daily. ondansetron (ZOFRAN) 8 mg tablet Take 1 tablet by mouth every 8 hours as needed for nausea/vomiting. desvenlafaxine ER (PRISTIQ) 100 mg 24 hr tablet Take 1 tablet by mouth once daily. PNV no.95/ferrous fum/folic ac ( ORAL) Take 1 tablet by mouth once daily. pyridoxine HCl, vitamin B6, (VITAMIN B-6 ORAL) Take 25 mg by mouth once daily. promethazine (PHENERGAN) 12.5 mg suppository 1 Suppository by RECTAL route every 6 hours as needed for nausea/vomiting. lamoTRIgine (LAMICTAL) 100 mg tablet Take 1 tablet by mouth once daily. valACYclovir (VALTREX) 1 gram Take 1 tablet by mouth twice daily. For cold sore outbreak LORATADINE ORAL Take by mouth. No current facility-administered medications on file prior to visit. ROS: See HPI PFSH: See HPI VITAL SIGNS: 06/01/24 1643 BP: 134/60 Pulse: 88 Resp: 18 Weight: 93.2 kg (205 lb 6.4 oz) Last 3 Encounter BP Readings: Date: BP: 06/01/2024 134/60 05/12/2024 110/68 05/10/2024 108/64 MENTAL STATUS EXAMINATION: Appearance: Well dressed, well groomed Behavior: Behaves appropriately during the encounter Social relatedness: Euthymic Speech/Language: The patient demonstrates appropriate tone, prosody, edith, phonetics, and syntax Mood: concerned Affect: Full and appropriate to topic Orientation: Person, Place, Time and Situation Associations: Intact and linear Hallucinations: None Delusions: None Suicidal Ideation: No suicidal ideation, intent or plan. Homicidal Ideation: No homicidal ideation, intent or plan. Insight: Appropriate Judgment: Appropriate DATA REVIEWED: Psychiatric scales, Electronic medical record, and Labs DIAGNOSIS: Mood disorder (hcc) (primary encounter leif (more content not included)... Normal [facility] BACTERIAL VAGINOSIS NAATon 0 05-12-2024 Lactobacillus crispatus+gasseri+je nsenii + Gardnerella vaginalis + Atopobium vaginae rRNA TELMA+probe Ql (Vag fld) Not detected Normal Not detected [facility] Comment on above: Order Comment: Speci men Type: BLOOD SPECIMEN [facility] Address: [address] [place] [address] Performed By: #### L [id number] #### [facility] CLIA [id number] [address] [place] [address] [place] Bacteria Ur Culton Bacteria identified Cx Nom (U) ORGANISM ID: 1 10,000 -<50,000 CFU/ml Normal urogenital thad Normal [facility] Comment on above: Performed By: #### 6 30-4 ####[facility] [id number] [place] [address] [place] C. trachomatis+N. gonorrhoea e DNA TELMA+probe Ql (Unsp spec)on 05-12-2024 C. trachomatis rRNA TELMA+probe Ql (Unsp spec) Not detected Normal Not detected [facility] Comment on above: Order Comment: Speci men Type: SWABOrdering Facility: [facility] Address: [address] [place] [address] Performed By: #### 3 6902-5 ####[facility] [id number] [place] [address] [place] N. gonorrhoeae rRNA TELMA+probe Ql (Unsp spec) Not detected Normal Not detected [facility] Comment on above: Order Comment: Speci men Type: SWABOrdering Facility: [facility] Address: [address] [place] [address] Performed By: #### 3 6902-5 ####[facility] [id number] [place] [address] [place] AB/TRICHOMONAS NAATon 0 05-12-2024 C. glabrata RNA TELMA+probe Ql (Vag fld) Not detected Normal Not detected [facility] Comment on above: Order Comment: Speci men Type: BLOOD SPECIMEN [facility] Address: [address] [place] [address] Performed By: #### L [id number] #### [facility] CLIA [id number] [address] [place] [address] [place] Ab sp DNA TELMA+probe Ql (Vag fld) Not detected Normal Not detected [facility] Comment on above: Order Comment: Speci men Type: BLOOD SPECIMEN [facility] Address: [address] [place] [address] Result Comment: The Ab species group target includes C. albicans, C. tropicalis, C. parapsilosis, and C. dubliniensis. Performed By: #### L [id number] #### [facility] CLIA [id number] [address] [place] [address] [place] T. vaginalis DNA TELMA+probe Ql (Unsp spec) Not detected Normal Not detected [facility] Comment on above: Order Comment: Speci men Type: BLOOD SPECIMEN [facility] Address: [address] [place] [address] Performed By: #### L [id number] #### [facility] CLIA [id number] [address] [place] [address] [place] POC FLIGHT OPERATIONS ENGINEER ULTRASOUNDon 05-12-19 25 Indication Viability; confirm cardiac activity Impression Single intrauterine gestational sac, CRL is appropriate for clinical dates, corresponding to TIO 12/16/2024 Recommendations Follow up for NT scan if desired Method Transabdominal and transvaginal ultrasound examination Berger . Number of embryos: 1 Dating LMP on: 03/11/2024 GA by LMP 8 w + 6 d TIO by LMP: 12/16/2024 Ultrasound examination on: 05/12/2024 GA by U/S based upon: CRL GA by U/S 8 w + 3 d TIO by U/S: 12/19/2024 Assigned: based on the LMP, selected on 05/12/2024 Assigned GA 8 w + 6 d Assigned TIO: 12/16/2024 Biometry Standard FHR 182 bpm CRL 18.9 mm 8w 3d 14% Hadlock Assessment Gestational sac: visualized Location: intrauterine Yolk sac: visualized Embryo: visualized CRL 18.9 mm 8w 3d 14% Hadlock Cardiac activity: present FHR 182 bpm General Evaluation Cardiac activity present. FHR 182 bpm Performed By: Emilee Rose CNM Read By: Emilee Rose CNM MATERNAL MEDICINE [facility] Radiology Study observation (narrative) [facility] Urine Cultureon 05-12-2024 [facility] Mixed Gram Positive Organisms [place] Count 50,000-80,000 MIXC Mixed contaminants. Submit a new specimen if indicated. Normal [facility] Comment on above: Performed By: #### M 100.2200 #### [facility] Laboratory [facility] [place], [address] CNOVon 05-10-2024 CNOV Office Visit (FAMWS ) HERMINIA GOTTLIEB ([id number]) 1995 F Date Time Provider Department 05/10/24 7:40 AM СВЕТЛАНА SRINIVASAN FAMWS During your visit today, we recorded the following information about you: Pulse Blood pressure Weight 68/minute 108/64 90.3 kg Светлана Srinivasan APRN.PATTERN MARKING SUPERVISOR 05/10/2024 11:48 AM Signed This is a 28 year old female who presents today with: Patient presents with: Vomiting HISTORY OF PRESENT ILLNESS: Herminia Gottlieb is a 28 year old female. Patient presents with: Vomiting Pt presents today w/ n/v. -- appx 8-9 weeks. Not keeping anything down. Had some zofran and did take that. Has tried unisom at night. Was taking b6 and unisom (at night). B6 wasn't helpful. Can't take the unisom during the day d/t working. She is also using sea-sickness bands. Last zofran on . She is 8 weeks and 4 days. Was given phenergan, but unable to afford to be drowsy. Hasn't taken. 1st OB appt Friday. Not keeping routine medication down. Not able to keep prenatals down. Barely took anything in orally yesterday. Minimal on Friday. She has tried plain crackers and plain cheerios without success. Last BM 05/07. Barely urinating and dark yellow. Throat irritated. Did have streak of blood in vomitus here. Weight down 7-9 pounds. PAST MEDICAL HISTORY: PAST MEDICAL HISTORY Diagnosis Date Appendicitis 01/2019 Cold sores Depression Previous suicide attempt Exercise-induced asthma PMH - PAST MEDICAL HISTORY OF 11/2004 normal color vision Varicella age 2 years PAST SURGICAL HISTORY Procedure Laterality Date EXTRACTION, ERUPTED TOOTH OR EXPOSED ROOT (ELEVATION AND/OR FORCEPS REMOVAL) LAPAROSCOPIC APPENDECTOMY 01/2019 ALLERGIES Seasonal Allergies MEDICATIONS Current Outpatient Medications Medication Sig promethazine (PHENERGAN) 12.5 mg suppository 1 Suppository by RECTAL route every 6 hours as needed for nausea/vomiting. desvenlafaxine ER (PRISTIQ) 100 mg 24 hr tablet Take 1 tablet by mouth once daily. lamoTRIgine (LAMICTAL) 100 mg tablet Take 1 tablet by mouth once daily. ondansetron orally disintegrating (ZOFRAN ODT) 4 mg disintegrating tablet Take 1 tablet by mouth every 6 hours as needed for nausea/vomiting. cyclobenzaprine (FLEXERIL) 10 mg tablet Take 1 tablet by mouth three times a day as needed for muscle spasm. vitamin b complex tab Take 1 tablet by mouth once daily. Biotin 1 mg tab Take 1 tablet by mouth. valACYclovir (VALTREX) 1 gram Take 1 tablet by mouth twice daily. For cold sore outbreak LORATADINE ORAL Take by mouth. fluticasone (FLONASE) 50 mcg/actuation nasal spray Use 2 Sprays in each nostril once daily. Rinse mouth after use. (Patient taking differently: Use 2 Sprays in each nostril once daily. Rinse mouth after use.... uses as needed) cahsnmkr-cdgq-JB-calc ium-mins 18 mg iron-400 mcg-500 mg Ca tab multivitamin (OPTIVITE P.M.T. ORAL) albuterol HFA (VENTOLIN HFA) 90 mcg/actuation inhaler Inhale 2 Puffs as instructed every 4 hours as needed for Wheezing/Shortness of Breath. No current facility-administered medications for this visit. FAMILY HISTORY Problem Relation Age of Onset other (mental health) Mother Stroke Father other (Epilepsy) Father Anxiety disorder Sister Depression Sister Asthma Sister Prematurity Sister other (one kidney) Sister Anxiety disorder Brother Stroke Maternal Grandfather Alzheimer's Disease Maternal Grandfather Heart Paternal Grandmother Stroke Paternal Grandmother Social History Tobacco Use Smoking status: Never Smokeless tobacco: Never Vaping Use Vaping status: Never Used Substance Use Topics Alcohol use: Yes Comment: rare Drug use: Never EXAM: BP 108/64 (BP Site: Left Arm, BP Position: Sitting, BP Cuff Size: Regular Adult) Pulse 68 Wt 90.3 kg (199 lb) LMP 03/11/2024 (Exact Date) BMI 34.16 kg/m? PHYSICAL EXAM: General Appearance: Well appearing, alert, in no acute distress, well-hydrated, well nourished.. Skin: Skin color, texture, turgor normal, no suspicious rashes or lesions. Head: Normocephalic, no masses, lesions, tenderness or abnormalities. Eyes: Anicteric sclera. Extraocular movements are intact. . Lungs: Lungs clear to auscultation. No wheezing, rhonchi, rales.. Heart: RRR without murmur, gallop, or rubs. No ectopy. Neurologic: Gait normal. ASSESSMENT/PLAN: 1. Morning sickness - ICD9: 643.00, ICD10: O21.0 Not keeping liquids down. Reportedly decreased urination. Activity vomiting in office. Blood tinged streaks in vomitus. Likely needs IV hydration. She is agreeable to ER. Report to [facility]. Discussed treatment plan and patient voices understanding. Patient's questions answered appropriately. Medications and potential side effects were discussed and patient voices understanding. Return to the office as scheduled or as ne (more content not included)... Normal [facility] Emergency Department Summary on 05-10-2024 Emergency Department Summary [facility] Medical Records Department [address] [place] [address] Emergency Department Summary 05/10/24 MR#: [id number] Acct: [id number] Name: HERMINIA GOTTLIEB Rep #: [id number] : 1995 28 From: Gael Salinas MD PCP: RENEA Mccann Status:REG ER Location: ED HPI History of Present Illness Chief Complaint: Nausea/Vomiting Detail of Chief Complaint: Nausea vomiting due to . Informant: patient and PCP (Aircraft Tool [employer] called and per patient) Onset/Context/Timing Onset: Weeks (Nausea started May 01. Vomiting started approximately May 04) Context: Sudden Onset Timing: Continuous (With respect to the nausea) and Intermittent (With respect to the vomiting) Quality: Nausea and vomiting for the past several days Location: Hyperemesis gravidarum Current Severity: Moderate Maximum Severity: Moderate Worsened by: Relieved by: Nothing Associated Symptoms Associated Symptoms: Lightheadedness, thirst, dry mouth Narrative Narrative: Patient is a 28-year-old G1, P0 AB 0 woman who is approximately 8 weeks gestation who was sent in because of persistent nausea and vomiting. Last episode of nausea and vomiting had mild blood streaks noted. She denies black or maroon-colored stool. She denies coffee-ground emesis. She does endorse thirst, dry mouth and lightheadedness with standing. She did have streaks of blood last emesis. Patient denies fever, chills night sweats. She denies headache, visual, ocular auditory symptoms. She denies paresthesia, anesthesia or motor weakness. Prior similar symptoms: No Recent Illness/Hospitalizati on: No PFSH PFSH Medical History (Updated 05/10/24 @ 14:[address] Gael Salinas MD) Seasonal allergies Home Medications ???Medication ???Instructions ???Recorded ???Last Taken ???Type fluoxetine 40 mg capsule 40 mg PO DAILY 01/08/19 Unknown History multivitamin with minerals 1 ea PO DAILY 01/08/19 Unknown History norgestimate 0.25 mg-ethinyl 1 tab PO DAILY 01/08/19 Unknown History estradiol 35 mcg tablet ondansetron 4 mg disintegrating 4 mg PO Q8H PRN PRN Nausea #20 tabs 05/10/24 Unknown Rx tablet promethazine 25 mg rectal 25 mg NH Q6H PRN PRN Nausea #6 supp 05/10/24 Unknown Rx suppository (Promethegan) Allergy/AdvReac Type Severity Reaction Status Date / Time No Known Allergies Allergy Verified 12/23/19 07:17 Surgical History History of appendectomy History of wisdom tooth extraction Social History (Updated 05/10/24 @ 09:[address] Gael Salinas MD) household members: spouse Smoking Status: Never smoker ROS ROS ED Constitutional Constitutional ED: Denies chills, fever(s) or subjective Eyes Eyes: Denies blurry vision or change in vision ENT ENT ED: Denies rhinorrhea or sore throat Cardiovascular Cardiovascular: Denies chest pain or palpitations Respiratory/Chest Respiratory/Chest: Denies cough, dyspnea or dyspnea on exertion Gastrointestinal Gastrointestinal: Reports nausea, vomiting and other Details: Further detailed HPI narrative ; Denies abdominal pain, constipation, diarrhea or melena Genitourinary Genitourinary ED: Reports other Details: Patient endorses decreased urine output ; Denies dysuria, hematuria or urinary frequency Musculoskeletal Musculoskeletal: Denies arthralgias or myalgias Integumentary Denies rash Neurologic Neurologic: Denies headache(s) Hematologic/Lymphatic Hematologic/Lymphatic : Reports systems reviewed and no addt'l complaints, except as documented EXAM Physical Exam Const Vital Signs: 05/10/24 08:46 05/10/24 10:46 05/10/24 12:00 Temperature 97.9 F Temperature Source Temporal Pulse Rate 103 H 73 79 Respiratory Rate 16 18 20 H Blood Pressure 88/73 L 104/58 L 111/61 Blood Pressure Mean 78 73 77 Pulse Ox 98 98 98 Oxygen Delivery Method Room Air Room Air Room Air Positive well nourished and well developed Constitutional Narrative: BMI is 34.2. She appears slightly pale. Blood pressure is low. This was obtained when she was sitting out in triage. Blood pressure supine is 117. This would be consistent with orthostatic hypotension and reason she endorsed lightheadedness with standing. General Appearance ED: well developed, NAD and pallor; Negative for cyanotic or diaphoretic HEENT Reports dry mucous membranes HEENT Narrative: Head is atraumatic and normocephalic. Ears normal. Nares patent. Posterior pharynx is normal. Mouth ED: Yes dry mucous membranes Mouth: dry mucous membranes Eyes PERRL and EOMs intact bilaterally General Eye ED: Negative for pale conjunctiva or scleral icterus Neck no lymphadenopathy, supple and no JVD Resp normal respiratory effort and clear to auscultation bilaterally Cardio regular rhythm, S1 normal hea (more content not included)... Normal [facility] Urinalysis, Completeon 05-10 BACTERIA 1+ /hpf Normal None Seen [facility] Comment on above: Order Comment: CLEAN CATCH Performed By: #### L 400.0001 #### [facility] [address] [place], [address] EPI,SQUAMOUS 0-5 SEEN Normal 5-10 [facility] Comment on above: Order Comment: CLEAN CATCH Performed By: #### L 400.0001 #### [facility] [address] [place], [address] Mucus Ql (Urine sed) 1+ /hpf Normal [facility] Comment on above: Order Comment: CLEAN CATCH Performed By: #### L 400.0001 #### [facility] [address] [place], [address] WBC 5-10 SEEN Normal 0-5 [facility] Comment on above: Order Comment: CLEAN CATCH Performed By: #### L 400.0001 #### [facility] [address] [place], [address] RBC 0 SEEN Normal 0-5 [facility] Comment on above: Order Comment: CLEAN CATCH Performed By: #### L 400.0001 #### [facility] [address] [place], [address] CNPNon 05-07-2024 CNPN Telephone (OBGYWM) HERMINIA GOTTLIEB ([id number]) 1995 F Date Time Provider Department 05/07/24 NAYELI BOWMAN During your visit today, we recorded the following information about you: Denisa Shepherd, PIA 05/07/2024 8:22 AM Signed Patient seen for a virtual visit yesterday with c/o nausea and vomiting in early . Patient called this morning to report that shortly after taking her Vitamin B6 and claudio along with some apple juice and dry Cheerios she vomited. Patient took Unisom last night. Encouraged to give the Vitamin B6 and Unisom a chance to work. Patient asking if she could have a medication sent in in case she needs it with the weekend. Discussed going to ER for IV hydration if not able to keep anything down for 24 hours. Can a medication be sent in? PIA Dan Courtney, APRN.CNM 05/07/2024 8:37 AM Signed Rx for suppository sent for patient to use if unable to keep food or liquids down. Nayeli Bowman APRN.Lisa Mai RN 05/07/2024 9:03 AM Signed Pt notified and voiced understanding. Lisa Pedro RN Allergies As of Date: 05/07/2024 Noted Allergy Reaction SEASONAL ALLERGIES 10/15/2010 14 - Other: See Comments Comments: cough, sneeze,watery eyes Date Reviewed: 01/27/2024 Reviewed by: Trey Bright LPN - Fully Assessed Reason for Visit: Early OB N/V [Other] Order(s):promethazine (PHENERGAN) 12.5 mg suppository1 Suppository by RECTAL route every 6 hours as needed for nausea/vomiting.Disp: 12 SuppositoryRfl: 0 Prescriptions as of 05/07/2024 - promethazine (PHENERGAN) 12.5 mg suppository 1 Suppository by RECTAL route every 6 hours as needed for nausea/vomiting. - desvenlafaxine ER (PRISTIQ) 100 mg 24 hr tablet Take 1 tablet by mouth once daily. - lamoTRIgine (LAMICTAL) 100 mg tablet Take 1 tablet by mouth once daily. - ondansetron orally disintegrating (ZOFRAN ODT) 4 mg disintegrating tablet Take 1 tablet by mouth every 6 hours as needed for nausea/vomiting. - cyclobenzaprine (FLEXERIL) 10 mg tablet Take 1 tablet by mouth three times a day as needed for muscle spasm. - vitamin b complex tab Take 1 tablet by mouth once daily. - Biotin 1 mg tab Take 1 tablet by mouth. - valACYclovir (VALTREX) 1 gram Take 1 tablet by mouth twice daily. For cold sore outbreak - LORATADINE ORAL Take by mouth. - fluticasone (FLONASE) 50 mcg/actuation nasal spray Use 2 Sprays in each nostril once daily. Rinse mouth after use. - myviufsy-dpbz-XZ-calc ium-mins 18 mg iron-400 mcg-500 mg Ca tab - multivitamin (OPTIVITE P.M.T. ORAL) - albuterol HFA (VENTOLIN HFA) 90 mcg/actuation inhaler Inhale 2 Puffs as instructed every 4 hours as needed for Wheezing/Shortness of Breath. Meds Comments as of 06/28/2016: Reviewed current med list, 09/14/2008. Chari Gan LPN Reviewed current med list, 07/04/2008. Chari Gan LPN Reviewed current med list, 06/08/2008. Chari Gan LPN Reviewed current med list, 07/31/2007. Chari Gan LPN 06/28 h on Prozac and control pills Problem List As Of Date 05/07/2024 Noted Resolved Recurrent major depressive disorder, in remissi*01/21/2019 Herpes simplex [B00.9] 01/21/2019 Episodic lightheadedness [R42] 09/06/2019 Anxiety and depression [F41.9, F32.A] 07/28/2020 Prescriptions ordered this encounter Disp Refills Start End PROMETHAZINE 12.5 MG RECTAL SUPPOSIT* 12 S* 0 05/07/2024 Route: RECTAL Si Suppository by RECTAL route every 6 hours as needed for nausea/vomiting. Encounter Status:Closed by [facility]EL[facility]OWMAN [facility] (PSWSTR) HERMINIA GOTTLIEB ([id number]) 1995 F Date Time Provider Department 04/20/24 DYAN COREY PSTR During your visit today, we recorded the following information about you: Mahi Hull LPN 04/20/2024 9:54 AM Signed Call placed OV scheduled for 06/01/2024 @ 4:[address] on waiting list and watch for a 4 week visit open. Asked patient to call for a sooner visit if she has concerns. RAY Brown Nishi J, SECURITY OPERATIONS CENTER ANALYST.[facility] 04/20/2024 11:00 AM Signed Noted appointment time and plan to place on waitlist. Allergies As of Date: 04/20/2024 Noted Allergy Reaction SEASONAL ALLERGIES 10/15/2010 14 - Other: See Comments Comments: cough, sneeze,watery eyes Date Reviewed: 01/27/2024 Reviewed by: Trey Bright LPN - Fully Assessed Reason for Visit: Appointment [186] Prescriptions as of 04/20/2024 - desvenlafaxine ER (PRISTIQ) 100 mg 24 hr tablet Take 1 tablet by mouth once daily. - lamoTRIgine (LAMICTAL) 100 mg tablet Take 1 tablet by mouth once daily. - ondansetron orally disintegrating (ZOFRAN ODT) 4 mg disintegrating tablet Take 1 tablet by mouth every 6 hours as needed for nausea/vomiting. - cyclobenzaprine (FLEXERIL) 10 mg tablet Take 1 tablet by mouth three times a day as needed for muscle spasm. - naproxen sodium (ALEVE) 220 mg tablet Take 1 tablet by mouth two times a day with meals. TAKE WITH FOOD - vitamin b complex tab Take 1 tablet by mouth once daily. - Biotin 1 mg tab Take 1 tablet by mouth. - valACYclovir (VALTREX) 1 gram Take 1 tablet by mouth twice daily. For cold sore outbreak - LORATADINE ORAL Take by mouth. - fluticasone (FLONASE) 50 mcg/actuation nasal spray Use 2 Sprays in each nostril once daily. Rinse mouth after use. - ybbrwgkr-xlow-TQ-calc ium-mins 18 mg iron-400 mcg-500 mg Ca tab - multivitamin (OPTIVITE P.M.T. ORAL) - albuterol HFA (VENTOLIN HFA) 90 mcg/actuation inhaler Inhale 2 Puffs as instructed every 4 hours as needed for Wheezing/Shortness of Breath. Meds Comments as of 06/28/2016: Reviewed current med list, 09/14/2008. Chari Gan LPN Reviewed current med list, 07/04/2008. Chari Gan LPN Reviewed current med list, 06/08/2008. Chari Gan LPN Reviewed current med list, 07/31/2007. Chari Gan LPN 06/28 [facility] [place] on Prozac and control pills Problem List As Of Date 04/20/2024 Noted Resolved Recurrent major depressive disorder, in remissi*01/21/2019 Herpes simplex [B00.9] 01/21/2019 Episodic lightheadedness [R42] 09/06/2019 Anxiety and depression [F41.9, F32.A] 07/28/2020 Encounter Status:Closed by MAHI HULL on 04/20/24 Normal [facility] CBC W Auto Differential pane l (Bld)on 01-27-2024 Basophils (Bld) [#/Vol] 0.04 10*3/uL Normal <0.11 [facility] Comment on above: Order Comment: Speci men Type: BLOOD SPECIMENOrdering Facility: [facility] Address: [address] [place] [address] Performed By: #### 5 7021-8 ####[facility] [id number] [place] [address] [place] Basophils/100 WBC (Bld) 0.6 % Normal [facility] Comment on above: Order Comment: Speci men Type: BLOOD SPECIMENOrdering Facility: [facility] Address: [address] [place] [address] Performed By: #### 5 7021-8 ####[facility] [id number] [place] [address] [place] Differential cell count method Nom (Bld) Auto Normal [facility] Comment on above: Order Comment: Speci men Type: BLOOD SPECIMENOrdering Facility: [facility] Address: [address] [place] [address] Performed By: #### 5 7021-8 ####[facility]CL[facility] [id number] [place] [address] [place] Eosinophils (Bld) [#/Vol] 0.09 10*3/uL Normal <0.46 [facility] Comment on above: Order Comment: Speci men Type: BLOOD SPECIMENOrdering Facility: [facility] Address: [address] [place] [address] Performed By: #### 5 7021-8 ####[facility]CL[facility] [id number] [place] [address] [place] Eosinophils/100 WBC (Bld) 1.4 % Normal [facility] Comment on above: Order Comment: Speci men Type: BLOOD SPECIMENOrdering Facility: [facility] Address: [address] [place] [address] Performed By: #### 5 7021-8 ####[facility]CL[facility] [id number] [place] [address] [place] Erythrocyte distribution width (RBC) [Ratio] 13.0 % Normal 11.5-15.0 [facility] Comment on above: Order Comment: Speci men Type: BLOOD SPECIMENOrdering Facility: [facility] Address: [address] [place] [address] Performed By: #### 5 7021-8 ####[facility] [id number] [place] [address] [place] Hematocrit (Bld) [Volume fraction] 40.5 % Normal 36.0-46.0 [facility] Comment on above: Order Comment: Speci men Type: BLOOD SPECIMENOrdering Facility: [facility] Address: [address] [place] [address] Performed By: #### 5 7021-8 ####[facility] [id number] [place] [address] [place] Hemoglobin (Bld) [Mass/Vol] 12.7 g/dL Normal 11.5-15.5 [facility] Comment on above: Order Comment: Speci men Type: BLOOD SPECIMENOrdering Facility: [facility] Address: [address] [place] [address] Performed By: #### 5 7021-8 ####[facility] [id number] [place] [address] [place] Immature granulocytes (Bld) [#/Vol] 10*3/uL Normal <0.10 [facility] Comment on above: Order Comment: Speci men Type: BLOOD SPECIMENOrdering Facility: [facility] Address: [address] [place] [address] Performed By: #### 5 7021-8 ####[facility] [id number] [place] [address] [place] Immature granulocytes/100 WBC (Bld) 0.2 % Normal [facility] Comment on above: Order Comment: Speci men Type: BLOOD SPECIMENOrdering Facility: [facility] Address: [address] [place] [address] Performed By: #### 5 7021-8 ####[facility] [id number] [place] [address] [place] Lymphocytes (Bld) [#/Vol] 2.14 10*3/uL Normal 1.00-4.00 [facility] Comment on above: Order Comment: Speci men Type: BLOOD SPECIMENOrdering Facility: [facility] Address: [address] [place] [address] Performed By: #### 5 7021-8 ####[facility] LABIA [id number] [place] [address] [place] Lymphocytes/100 WBC (Bld) 33.3 % Normal [facility] Comment on above: Order Comment: Speci men Type: BLOOD SPECIMENOrdering Facility: [facility] Address: [address] [place] [address] Performed By: #### 5 7021-8 ####[facility]IA [id number] [place] [address] [place] MCH (RBC) [Entitic mass] 26.8 pg Normal 26.0-34.0 [facility] Comment on above: Order Comment: Speci men Type: BLOOD SPECIMENOrdering Facility: [facility] Address: [address] [place] [address] Performed By: #### 5 7021-8 ####[facility]IA [id number] [place] [address] [place] MCHC (RBC) [Mass/Vol] 31.4 g/dL Normal 30.5-36.0 [facility] Comment on above: Order Comment: Speci men Type: BLOOD SPECIMENOrdering Facility: [facility] Address: [address] [place] [address] Performed By: #### 5 7021-8 ####[facility]IA [id number] [place] [address] [place] MCV (RBC) [Entitic vol] 85.4 fL Normal 80.0-100.0 [facility] Comment on above: Order Comment: Speci men Type: BLOOD SPECIMENOrdering Facility: [facility] Address: [address] [place] [address] Performed By: #### 5 7021-8 ####[facility]IA [id number] [place] [address] [place] Monocytes (Bld) [#/Vol] 0.57 10*3/uL Normal <0.87 [facility] Comment on above: Order Comment: Speci men Type: BLOOD SPECIMENOrdering Facility: [facility] Address: [address] [place] [address] Performed By: #### 5 7021-8 ####[facility]CLIA [id number] [place] [address] [place] Monocytes/100 WBC (Bld) 8.9 % Normal [facility] Comment on above: Order Comment: Speci men Type: BLOOD SPECIMENOrdering Facility: [facility] Address: [address] [place] [address] Performed By: #### 5 7021-8 ####[facility]CL[facility] [id number] [place] [address] [place] Neutrophils (Bld) [#/Vol] 3.57 10*3/uL Normal 1.45-7.50 [facility] Comment on above: Order Comment: Speci men Type: BLOOD SPECIMENOrdering Facility: [facility] Address: [address] [place] [address] Performed By: #### 5 7021-8 ####[facility] [id number] [place] [address] [place] Neutrophils/100 WBC (Bld) 55.6 % Normal [facility] Comment on above: Order Comment: Speci men Type: BLOOD SPECIMENOrdering Facility: [facility] Address: [address] [place] [address] Performed By: #### 5 7021-8 ####[facility] [id number] [place] [address] [place] Nucleated RBC (Bld) [#/Vol] 10*3/uL Normal <0.01 [facility] Comment on above: Order Comment: Speci men Type: BLOOD SPECIMENOrdering Facility: [facility] Address: [address] [place] [address] Performed By: #### 5 7021-8 ####[facility] [id number] [place] [address] [place] Nucleated RBC/100 WBC (Bld) [Ratio] 0.0 /100 WBC Normal [facility] Comment on above: Order Comment: Speci men Type: BLOOD SPECIMENOrdering Facility: [facility] Address: [address] [place] [address] Performed By: #### 5 7021-8 ####[facility] [id number] [place] [address] [place] Platelet mean volume (Bld) [Entitic vol] 10.0 fL Normal 9.0-12.7 [facility] Comment on above: Order Comment: Speci men Type: BLOOD SPECIMENOrdering Facility: [facility] Address: [address] [place] [address] Performed By: #### 5 7021-8 ####[facility]IA [id number] [place] [address] [place] Platelets (Bld) [#/Vol] 244 10*3/uL Normal 150-400 [facility] Comment on above: Order Comment: Speci men Type: BLOOD SPECIMENOrdering Facility: [facility] Address: [address] [place] [address] Performed By: #### 5 7021-8 ####[facility] [id number] [place] [address] [place] RBC (Bld) [#/Vol] 4.74 10*6/uL Normal 3.90-5.20 [facility] Comment on above: Order Comment: Speci men Type: BLOOD SPECIMENOrdering Facility: [facility] Address: [address] [place] [address] Performed By: #### 5 7021-8 ####[facility]CLIA [id number] [place] [id number] [place] WBC (Bld) [#/Vol] 6.42 10*3/uL Normal 3.70-11.00 [facility] Comment on above: Order Comment: Speci men Type: BLOOD SPECIMENOrdering Facility: [facility] Address: [address] [place] [address] Performed By: #### 5 7021-8 ####[facility] [id number] [place] [id number] [place] CNOVon 01-27-2024 CNOV Office Visit (FAMPWS ) HERMINIA GOTTLIEB ([id number]) 1995 F Date Time Provider Department 01/27/24 4:00 PM СВЕТЛАНА SRINIVASAN During your visit today, we recorded the following information about you: Pulse Respiration Blood pressure 71/minute 16/minute 128/84 Светлана Srinivasan APRN.PATTERN MARKING SUPERVISOR 01/27/2024 6:11 PM Signed This is a 28 year old female who presents today with: Patient presents with: Acute Visit: GI issues x2-3 weeks; constipation, nausea, not sleeping well, abd pain; diarrhea 1x feels d/t colace HISTORY OF PRESENT ILLNESS: Herminia Gottlieb is a 28 year old female. Patient presents with: Acute Visit: GI issues x2-3 weeks; constipation, nausea, not sleeping well, abd pain; diarrhea 1x feels d/t colace Pt presents today with complaint of getting back. Started with severe bloating on 01/04. Had frequent urination and increased thirst initially, but that went away. Then became gassy. Stated spotting on 01/07 and then started with cycle on 01/09. Thought that sh may have been . + nausea. + burping. Constipation. Abdomen was tender. Rumbling/gurgling stomach. Started doing miralax. Did omeprazole in the morning and pepcid in the evening. Started fiber gummies twice daily. Somewhat normal stools with miralax. Diarrhea once after bisacodyl. Friday vomited into mouth. No hematochezia/melena. Very little, occasional heartburn/indigestion . Will feel like something is creeping up esophagus after she eats. Yesterday and today, felt a little off, and pressure in the eyes. Not dizzy, but notices if she stands up to quickly or turns to quickly. Tired and sleeping normal hours. Not having a hard time getting to sleep. Has been doing a capful of miralax daily. Two stools today. Stooled yesterday 4 times. One stool on Friday without taking miralax. Painful/cramping. Stools can be harder. Sometimes will need to strain. Normally will stool 2-3 times daily. PAST MEDICAL HISTORY: PAST MEDICAL HISTORY Diagnosis Date Appendicitis 01/2019 Cold sores Depression Previous suicide attempt Exercise-induced asthma PMH - PAST MEDICAL HISTORY OF 11/2004 normal color vision Varicella age 2 years PAST SURGICAL HISTORY Procedure Laterality Date EXTRACTION, ERUPTED TOOTH OR EXPOSED ROOT (ELEVATION AND/OR FORCEPS REMOVAL) LAPAROSCOPIC APPENDECTOMY 01/2019 ALLERGIES Seasonal Allergies MEDICATIONS Current Outpatient Medications Medication Sig lamoTRIgine (LAMICTAL) 100 mg tablet Take 1 tablet by mouth once daily. desvenlafaxine ER (PRISTIQ) 100 mg 24 hr tablet Take 1 tablet by mouth once daily. ondansetron orally disintegrating (ZOFRAN ODT) 4 mg disintegrating tablet Take 1 tablet by mouth every 6 hours as needed for nausea/vomiting. cyclobenzaprine (FLEXERIL) 10 mg tablet Take 1 tablet by mouth three times a day as needed for muscle spasm. naproxen sodium (ALEVE) 220 mg tablet Take 1 tablet by mouth two times a day with meals. TAKE WITH FOOD vitamin b complex tab Take 1 tablet by mouth once daily. Biotin 1 mg tab Take 1 tablet by mouth. valACYclovir (VALTREX) 1 gram Take 1 tablet by mouth twice daily. For cold sore outbreak LORATADINE ORAL Take by mouth. fluticasone (FLONASE) 50 mcg/actuation nasal spray Use 2 Sprays in each nostril once daily. Rinse mouth after use. (Patient taking differently: Use 2 Sprays in each nostril once daily. Rinse mouth after use.... uses as needed) vkanzqoi-xsoo-HO-calc ium-mins 18 mg iron-400 mcg-500 mg Ca tab multivitamin (OPTIVITE P.M.T. ORAL) albuterol HFA (VENTOLIN HFA) 90 mcg/actuation inhaler Inhale 2 Puffs as instructed every 4 hours as needed for Wheezing/Shortness of Breath. No current facility-administered medications for this visit. FAMILY HISTORY Problem Relation Age of Onset other (mental health) Mother Stroke Father other (Epilepsy) Father Anxiety disorder Sister Depression Sister Asthma Sister Prematurity Sister other (one kidney) Sister Anxiety disorder Brother Stroke Maternal Grandfather Alzheimer's Disease Maternal Grandfather Heart Paternal Grandmother Stroke Paternal Grandmother Social History Tobacco Use Smoking status: Never Smokeless tobacco: Never Vaping Use Vaping status: Never Used Substance Use Topics Alcohol use: Yes Comment: rare Drug use: Never EXAM: BP 128/84 Pulse 71 Resp 16 LMP 07/27/2023 (Exact Date) SpO2 99% PHYSICAL EXAM: General Appearance: Well appearing, alert, in no acute distress, well-hydrated, well nourished.. Skin: Skin color, texture, turgor normal, no suspicious rashes or lesions. Head: Normocephalic, no masses, lesions, tenderness or abnormalities. Eyes: Anicteric sclera. Extraocular movements are intact. . Lungs: Lungs clear to auscultation. No wheezing, rhonchi, rales.. Heart: RRR without murmur, gallop, or rubs. No ectopy. Abdomen: Abd (more content not included)... Normal [facility] Comprehensive metabolic 2000 panelon 01-27-2024 Albumin [Mass/Vol] 4.7 g/dL Normal 3.9-4.9 [facility] Comment on above: Order Comment: Speci men Type: BLOOD SPECIMENOrdering Facility: [facility] Address: [address] [place] [address] Performed By: #### 3 016-3, 37173-9 ####[facility]IA [id number] [place] [address] [place] ALP [Catalytic activity/Vol] 46 U/L Normal 34-123 [facility] Comment on above: Order Comment: Speci men Type: BLOOD SPECIMENOrdering Facility: [facility] Address: [address] [place] [address] Performed By: #### 3 016-3, ####[facility]CL[facility] [id number] [place] [address] [place] ALT [Catalytic activity/Vol] 22 U/L Normal 7-38 [facility] Comment on above: Order Comment: Speci men Type: BLOOD SPECIMENOrdering Facility: [facility] Address: [address] [place] [address] Performed By: #### 3 016-3, ####[facility] [id number] [place] [address] [place] Anion gap [Moles/Vol] 13 mmol/L Normal 8-15 [facility] Comment on above: Order Comment: Speci men Type: BLOOD SPECIMENOrdering Facility: [facility] Address: [address] [place] [address] Performed By: #### 3 016-3, ####[facility] [id number] [place] [address] [place] AST [Catalytic activity/Vol] 22 U/L Normal 13-35 [facility] Comment on above: Order Comment: Speci men Type: BLOOD SPECIMENOrdering Facility: [facility] Address: [address] [place] [address] Performed By: #### 3 016-3, 75080-2 ####[facility]IA [id number] [place] [address] [place] Bilirubin [Mass/Vol] 0.3 mg/dL Normal 0.2-1.3 [facility] Comment on above: Order Comment: Speci men Type: BLOOD SPECIMENOrdering Facility: [facility] Address: [address] [place] [address] Performed By: #### 3 016-3, 98212-6 ####[facility] LABCLIA [id number] [place] [address] [place] Calcium [Mass/Vol] 9.9 mg/dL Normal 8.5-10.2 [facility] Comment on above: Order Comment: Speci men Type: BLOOD SPECIMENOrdering Facility: [facility] Address: [address] [place] [address] Performed By: #### 3 016-3, ####[facility] LABCLIA [id number] [place] [address] [place] Chloride [Moles/Vol] 100 mmol/L Normal 98-107 [facility] Comment on above: Order Comment: Speci men Type: BLOOD SPECIMENOrdering Facility: [facility] Address: [address] [place] [address] Performed By: #### 3 016-3, ####[facility] LABCLIA [id number] [place] [address] [place] CO2 [Moles/Vol] 25 mmol/L Normal 22-30 [facility] Comment on above: Order Comment: Speci men Type: BLOOD SPECIMENOrdering Facility: [facility] Address: [address] [place] [address] Performed By: #### 3 016-3, 75261-4 ####[facility] LABCLIA [id number] [place] [id number] [place] Creatinine [Mass/Vol] 0.83 mg/dL Normal 0.58-0.96 [facility] Comment on above: Order Comment: Speci men Type: BLOOD SPECIMENOrdering Facility: [facility] Address: [address] [place] [address] Performed By: #### 3 016-3, 57267-5 ####[facility] LABCLIA [id number] [place] [address] [place] Creatinine and Glomerular filtration rate.predicted panel (S/P/Bld) 99 mL/min/1.73m??? Normal >=60 [facility] Comment on above: Order Comment: Herman plascencia Type: BLOOD SPECIMENOrdering Facility: [facility] Address: [address] [place] [address] Result Comment: Aaliyah mated Glomerular Filtration Rate (eGFR) is calculated using the 2020 CKD-EPI creatinine equation. This equation utilizes serum creatinine, sex, and age as parameters. The creatinine assay has traceable calibration to isotope dilution-mass spectrometry. Refer to KDIGO guidelines for clinical interpretation. In patients with unstable renal function, e.g. those with acute kidney injury, the eGFR may not accurately reflect actual GFR. Performed By: #### 3 016-3, 95442-1 ####[facility] LABIA [id number] [place] [address] [place] Glucose [Mass/Vol] 81 mg/dL Normal 74-99 [facility] Comment on above: Order Comment: Herman plascencia Type: BLOOD SPECIMENOrdering Facility: [facility] Address: [address] [place] [address] Result Comment: The [place] Diabetes Association (ADA) provides guidance for cutoff values for fasting glucose and random glucose. The ADA defines fasting as no caloric intake for at least 8 hours. Fasting plasma glucose results between 100 to 125 mg/dL indicate increased risk for diabetes (prediabetes). Fasting plasma glucose results greater than or equal to 126 mg/dL meet the criteria for diagnosis of diabetes. In the absence of unequivocal hyperglycemia, results should be confirmed by repeat testing. In a patient with classic symptoms of hyperglycemia or hyperglycemic crisis, random plasma glucose results greater than or equal to 200 mg/dL meet the criteria for diagnosis of diabetes. Reference: Standards of Medical Care in Diabetes 2016, [place] Diabetes Association. Diabetes Care. 2016.39(Suppl 1). Performed By: #### 3 016-3, 46740-5 ####[facility] LABIA [id number] [place] [id number] [place] Potassium [Moles/Vol] 3.7 mmol/L Normal 3.7-5.1 [facility] Comment on above: Order Comment: Speci men Type: BLOOD SPECIMENOrdering Facility: [facility] Address: [address] [place] [address] Performed By: #### 3 016-3, ####[facility] LABCLIA [id number] [place] [address] [place] Protein [Mass/Vol] 7.2 g/dL Normal 6.3-8.0 [facility] Comment on above: Order Comment: Speci men Type: BLOOD SPECIMENOrdering Facility: [facility] Address: [address] [place] [address] Performed By: #### 3 016-3, 68268-2 ####[facility] LABCLIA [id number] [place] [address] [place] Sodium [Moles/Vol] 138 mmol/L Normal 136-144 [facility] Comment on above: Order Comment: Speci men Type: BLOOD SPECIMENOrdering Facility: [facility] Address: [address] [place] [address] Performed By: #### 3 016-3, ####[facility] LABCLIA [id number] [place] [address] [place] Urea nitrogen [Mass/Vol] 7 mg/dL Normal 7-21 [facility] Comment on above: Order Comment: Speci men Type: BLOOD SPECIMENOrdering Facility: [facility] Address: [address] [place] [address] Performed By: #### 3 016-3, ####[facility] LABCLIA [id number] [place] [id number] [place] TSH SerPl-aCncon 01-27-2024 TSH Qn 2.740 m[IU]/L Normal 0.270-4.200 [facility] Comment on above: Order Comment: Speci men Type: BLOOD SPECIMENOrdering Facility: [facility] Address: [address] [place] [id number] Result Comment: If t he patient is , TSH reference range varies by gestational period: First Trimester (weeks 9-12): 0.180-2.990 mIU/L Second Trimester: 0.110-3.980 mIU/L Third Trimester: 0.480-4.710 mIU/L Nils Michael et al. A Practical Approach for the Verifications and Determination of Site- and Trimester-Specific Reference Intervals for Thyroid Function tests in . Thyroid, 2019:29:3:412-420. Mahad E, et al. 2017 Guidelines of the [place] Thyroid Association for the Diagnosis and Management of Thyroid Disease during and the . Thyroid, 2017:27:3:315-389. Performed By: #### 3 016-3, 35929-6 ####[facility] LABCLIA [id number] [facility] [id number] [id number] [facility] CNPLaura 11-12-2023 CNPN Telephone (AGPOB1) HERMINIA GOTTLIEB ([id number]) 1995 F Date Time Provider Department 11/12/23 CE [facility] During your visit today, we recorded the following information about you: Ramu Varner 11/12/2023 10:11 AM Signed ----- Message from Keri Almendarez Manager [employer] sent at 11/12/2023 7:44 AM EDT ----- Regarding: FW: Orthopedics / Foot: Ingrown Toenail (With Infection) / Unable To Schedule Dx Please schedule with Dr Kapadia ----- Message ----- From: Ethel Boyer Sent: 11/11/2023 4:38 PM EDT To: [facility] Triage Pool Subject: Orthopedics / Foot: Ingrown Toenail (With I# Subject Line FormaOrthopedics / Foot: Ingrown Toenail (With Infection) / Unable To Schedule Dx Patient has been identified by name and Date of (Y/N): y Patient: Herminia Gottlieb Date of : 1995 Previous Provider Seen: n/a Body Part(s) Identified: jaimee feet Diagnosis/Reason For Visit: infected ingrown toenails Reason for the call/escalation: unable to schedule dx looking for latest of the day appt If reason for call/escalation is discharge from ED/ER or Hospital, which facility was the patient seen at: n/a Was an appointment scheduled (Y/N): n Person calling if other than patient: no Return call to if other than patient: no Best contact number: [phone] Thank you, Ethel Merlin November 11, 2023 4:36 PM Gio Ramu 11/12/2023 4:52 PM Signed Called Pt to schedule appt and get more info about her toes. She opted to wait to schedule with us and said if she could not find anything sooner someplace else, she would call back. She does not currently have an infection. Ramu Varner November 12, 2023 4:52 PM Allergies As of Date: 11/12/2023 Noted Allergy Reaction SEASONAL ALLERGIES 10/15/2010 14 - Other: See Comments Comments: cough, sneeze,watery eyes Date Reviewed: 10/06/2023 Reviewed by: Lainey Valdes MA - Fully Assessed Reason for Visit: Appointment [186] Prescriptions as of 11/12/2023 - lamoTRIgine (LAMICTAL) 25 mg tablet Take 3.5 tablets by mouth once daily. - lamoTRIgine (LAMICTAL) 100 mg tablet Take 1 tablet by mouth once daily. Start after completing 30 days of 3.5 tablets of 25 mg Lamictal. - desvenlafaxine ER (PRISTIQ) 100 mg 24 hr tablet Take 1 tablet by mouth once daily. - ondansetron orally disintegrating (ZOFRAN ODT) 4 mg disintegrating tablet Take 1 tablet by mouth every 6 hours as needed for nausea/vomiting. - cyclobenzaprine (FLEXERIL) 10 mg tablet Take 1 tablet by mouth three times a day as needed for muscle spasm. - naproxen sodium (ALEVE) 220 mg tablet Take 1 tablet by mouth two times a day with meals. TAKE WITH FOOD - vitamin b complex tab Take 1 tablet by mouth once daily. - Biotin 1 mg tab Take 1 tablet by mouth. - valACYclovir (VALTREX) 1 gram Take 1 tablet by mouth twice daily. For cold sore outbreak - LORATADINE ORAL Take by mouth. - fluticasone (FLONASE) 50 mcg/actuation nasal spray Use 2 Sprays in each nostril once daily. Rinse mouth after use. - autgvgnd-qssx-PB-calc ium-mins 18 mg iron-400 mcg-500 mg Ca tab - multivitamin (OPTIVITE P.M.T. ORAL) - albuterol HFA (VENTOLIN HFA) 90 mcg/actuation inhaler Inhale 2 Puffs as instructed every 4 hours as needed for Wheezing/Shortness of Breath. Meds Comments as of 06/28/2016: Reviewed current med list, 09/14/2008. Chari Gan LPN Reviewed current med list, 07/04/2008. Chari Gan LPN Reviewed current med list, 06/08/2008. Chari Gan LPN Reviewed current med list, 07/31/2007. Chari Gan LPN 06/28 h on Prozac and control pills Problem List As Of Date 11/12/2023 Noted Resolved Recurrent major depressive disorder, in remissi*01/21/2019 Herpes simplex [B00.9] 01/21/2019 Episodic lightheadedness [R42] 09/06/2019 Anxiety and depression [F41.9, F32.A] 07/28/2020 Encounter Status:Closed by RAMU VARNER on 11/12/23 Normal [facility] UA DIP, URINE (POC)on 2023 BILIRUBIN UA (POCT) Negative Negative [facility] CLARITY UA (POCT) Clear [facility] COLOR UA (POCT) Yellow [facility] GLUCOSE UA (POCT) Negative Negative mg/dL [facility] Hemoglobin Ql (U) Negative Negative [facility] KETONE UA (POCT) Negative Negative mg/dL [facility] LEUKOCYTES UA (POCT) Negative Negative [facility] NITRITE UA (POCT) Negative Negative [facility] PH UA (POCT) 6.0 4.5 - 8.0 [facility] Protein Ql (U) Negative Negative mg/dL [facility] SPECIFIC GRAVITY UA (POCT) 1.025 1.005 - 1.030 [facility] UROBILINOGEN UA (POCT) 0.2 E.U./dL Normal E.U./dL [facility] Influenza virus A and B RNA and SARS-CoV-2 (COVID-19) N gene panel TELMA+probe (Resp)on 05-28-2022 FLUAV RNA TELMA+probe Ql (Unsp spec) Negative Negative for Influenza A by RT-PCR [facility] FLUBV RNA TELMA+probe Ql (Unsp spec) Negative Negative for Influenza B by RT-PCR [facility] SARS-CoV-2 (COVID-19) RNA TELMA+probe Ql (Resp) SARS-CoV-2 (Agent of COVID-19) Detected by RT-PCR or equivalent method. Abnormal Not Detected [facility] STREP A MOLECULAR (POC)on Procedural Control Valid [facility] Strep A (POCT) Negative Negative [facility] Basic metabolic 2000 panelon 01-16-2022 Anion gap [Moles/Vol] 13 mmol/L 9 - 18 mmol/L [facility] Calcium [Mass/Vol] 10.4 mg/dL High 8.5 - 10.2 mg/dL [facility] Chloride [Moles/Vol] 104 mmol/L 97 - 105 mmol/L [facility] CO2 [Moles/Vol] 24 mmol/L 22 - 30 mmol/L [facility] Creatinine [Mass/Vol] 0.76 mg/dL 0.58 - 0.96 mg/dL [facility] Estimated Glomerular Filtration Rate 111 mL/min/1.73m >=60 mL/min/1.73m [facility] Glucose [Mass/Vol] 75 mg/dL 74 - 99 mg/dL [facility] Potassium [Moles/Vol] 4.2 mmol/L 3.7 - 5.1 mmol/L [facility] Sodium [Moles/Vol] 141 mmol/L 136 - 144 mmol/L [facility] Urea nitrogen [Mass/Vol] 10 mg/dL 7 - 21 mg/dL [facility] C-REACTIVE PROTEIN (CRP)on 0 01-16-2022 CRP [Mass/Vol] <0.9 mg/dL [facility] CBC W Auto Differential pane l (Bld)on 01-16-2022 Abs Immature Gran 0.03 k/uL <0.10 k/uL [facility] Basophils (Bld) [#/Vol] <0.11 k/uL [facility] Basophils/100 WBC (Bld) 0.4 % [facility] Differential cell count method Nom (Bld) Auto [facility] Eosinophils (Bld) [#/Vol] 0.07 10*3/uL <0.46 k/uL [facility] Eosinophils/100 WBC (Bld) 1.5 % [facility] Erythrocyte distribution width (RBC) [Ratio] 13.1 % 11.5 - 15.0 % [facility] Hematocrit (Bld) [Volume fraction] 43.6 % 36.0 - 46.0 % [facility] Hemoglobin (Bld) [Mass/Vol] 13.8 g/dL 11.5 - 15.5 g/dL [facility] Immature Gran % 0.7 % [facility] Lymphocytes (Bld) [#/Vol] 1.55 10*3/uL 1.00 - 4.00 k/uL [facility] Lymphocytes/100 WBC (Bld) 34.1 % [facility] MCH (RBC) [Entitic mass] 26.8 pg 26.0 - 34.0 pg [facility] MCHC (RBC) [Mass/Vol] 31.7 g/dL 30.5 - 36.0 g/dL [facility] MCV (RBC) [Entitic vol] 84.8 fL 80.0 - 100.0 fL [facility] Monocytes (Bld) [#/Vol] 0.49 10*3/uL <0.87 k/uL [facility] Monocytes/100 WBC (Bld) 10.8 % [facility] Neutrophils (Bld) [#/Vol] 2.39 10*3/uL 1.45 - 7.50 k/uL [facility] Neutrophils/100 WBC (Bld) 52.5 % [facility] Nucleated RBC (Bld) [#/Vol] <0.01 k/uL [facility] Nucleated RBC/100 WBC (Bld) [Ratio] 0.0 /100 WBC [facility] Platelet mean volume (Bld) [Entitic vol] 10.1 fL 9.0 - 12.7 fL [facility] Platelets (Bld) [#/Vol] 270 10*3/uL 150 - 400 k/uL [facility] RBC (Bld) [#/Vol] 5.14 10*6/uL 3.90 - 5.20 m/uL [facility] WBC (Bld) [#/Vol] 4.55 10*3/uL 3.70 - 11. 00 k/uL [facility] ESR Westergren method (Bld) [Velocity]on 01-16-2022 ESR (Bld) [Velocity] 2 mm/h 0 - 20 mm/hr [facility] MAGNESIUM BLDon 01-16-2022 Magnesium [Mass/Vol] 2.0 mg/dL 1.7 - 2.3 mg/dL [facility] Urinalysis complete panel (U )on 01-16-2022 Bilirubin Ql (U) Negative Negative [facility] Clarity (Unsp spec) Clear Clear [facility] Color (U) Yellow Yellow [facility] Epithelial cells LM.HPF (Urine sed) [#/Area] Few [facility] Glucose Test strip (U) [Mass/Vol] Negative Negative [facility] Hemoglobin Ql (U) Negative Negative [facility] Ketones Ql (U) Negative Negative [facility] Leukocyte esterase Test strip Ql (U) Negative Negative [facility] Nitrite Ql (U) Negative Negative [facility] pH (U) 6.0 [pH] 5.0 - 8.0 [facility] Protein (U) [Mass/Vol] Negative Negative [facility] RBC LM.HPF (Urine sed) [#/Area] 0-3 /HPF 0-3 /HPF [facility] Specific gravity (U) [Rel density] 1.024 1.005 - 1.030 [facility] Urobilinogen Ql (U) Negative Negative [facility] WBC LM.HPF (Urine sed) [#/Area] 0-5 /HPF 0-5 /[facility] [place] [facility] RE[facility] Normal [facility] DATE OF SERVICE: 02/06/2017Patient seen and examined by myself with supervision by a physician.CHIEF COMPLAINT: Left thumb laceration.HISTORY OF PRESENT ILLNESS: A 21-year-old female who was at school. She was using ascalpel and slipped and the blade cut her left thumb. Said it bled quite a bitinitially, but this has been controlled. Denies any pain associated with this. Nonumbness or tingling. She is unsure of her last tetanus shot. No other complaints.REVIEW OF SYSTEMS: Negative other than as noted in HPI.PAST MEDICAL HISTORY, SOCIAL HISTORY AND FAMILY HISTORY: Reviewed.MEDICATIONS: 1. Fluoxetine.2. control.ALLERGIES: NONE.PHYSICAL EXAMINATION:Vital Signs: Reviewed and normal.General Appearance: Nontoxic-appearing, in no acute distress. Patient communicateswell.[facility] uloskeletal: Left hand: There is a roughly 0.75-cm, superficial laceration tothe medial aspect of the proximal phalanx section of the left thumb. There is noactive bleeding. No swelling or ecchymosis. No pain on palpation. There is normalstrength, hand range of motion in all directions as well as apposition of the thumbwithout any pain or weakness. Normal porcelain waxer strength. There are normal sensations andcapillary refill.PROCEDURE NOTE: Wound was cleaned and irrigated with copious amounts of normalsaline, using surgeon's splash shield. Wound is very superficial and iswell-approximated. There is no bleeding. This does not require a suture, but wasclosed with Dermabond. Patient tolerated the procedure well.CLINICAL IMPRESSION: Acute left thumb laceration.PLAN: Patient was given wound care instructions as well as educated on signs ofinfection. Will return if these present. Her tetanus was updated here.Mahad Irwin PA-C dictating for: [facility] PATIENT NAME: HERMINIA GOTTLIEB [id number] [facility] [address] [place] [facility] REC #: [id number], [place] [address] [facility] RE[facility] PHYSICIANEdgar Anne, MDAB/[id number]: 02/06/2017 14:12DT: 02/06/2017 14:44SSI File#: [id number] ob #: [id number]/Reviewe d by02/11/17 1443 ARCENIOLEONEL *[facility] PATIENT NAME: HERMINIA GOTTLIEB [id number] [facility] [address] [place] MEDICAL REC #: [id number], [place] [address] [facility] RE[facility] PHYSICIAN Normal [facility] Vital Signs Date Time Vital Sign Value Performing Clinician Leighai elizabeth 11-30-2024 15:25-0400 Body mass index (BMI) [Ratio] 37.76 kg/m2 Esther Link MD Work Phone: [facility] 11-30-2024 15:25-0400 Body weight 99.79 kg Esther Link MD Work Phone: [facility] 11-30-2024 15:25-0400 Diastolic blood pressure 69 mm[Hg] Esther Link MD Work Phone: [facility] 11-30-2024 15:25-0400 Systolic blood pressure 118 mm[Hg] Esther Link MD Work Phone: [facility] 11-25-2024 15:42-0400 Body mass index (BMI) [Ratio] 37.32 kg/m2 Kendy Collins MD Work Phone: [facility] 11-25-2024 15:42-0400 Body weight 98.61 kg Kendy Collins MD Work Phone: [facility] 11-25-2024 15:42-0400 Diastolic blood pressure 68 mm[Hg] Kendy Collins MD Work Phone: [facility] 11-25-2024 15:42-0400 Systolic blood pressure 120 mm[Hg] Kendy Collins MD Work Phone: [facility] 11-17-2024 16:22-0400 Body mass index (BMI) [Ratio] 37.42 kg/m2 Denisa Bentley MD Work Phone: [facility] 11-17-2024 16:22-0400 Body weight 98.88 kg Denisa Bentley MD Work Phone: [facility] 11-17-2024 16:22-0400 Diastolic blood pressure 68 mm[Hg] Denisa Bentley MD Work Phone: [facility] 11-17-2024 16:22-0400 Systolic blood pressure 100 mm[Hg] Denisa Bentley MD Work Phone: [facility] 11-02-2024 15:48-0400 Body mass index (BMI) [Ratio] 36.39 kg/m2 Denisa Bentley MD Work Phone: [facility] 11-02-2024 15:48-0400 Body weight 96.16 kg Denisa Bentley MD Work Phone: [facility] 11-02-2024 15:48-0400 Diastolic blood pressure 60 mm[Hg] Denisa Bentley MD Work Phone: [facility] 11-02-2024 15:48-0400 Systolic blood pressure 118 mm[Hg] Denisa Bentley MD Work Phone: [facility] 10-21-2024 16:09-0400 Body mass index (BMI) [Ratio] 35.19 kg/m2 Kendy Collins MD Work Phone: [facility] 10-21-2024 16:09-0400 Body weight 92.99 kg Kendy Collins MD Work Phone: [facility] 10-21-2024 16:09-0400 Diastolic blood pressure 62 mm[Hg] Kendy Collins MD Work Phone: [facility] 10-21-2024 16:09-0400 Systolic blood pressure 112 mm[Hg] Kendy Collins MD Work Phone: [facility] 10-13-2024 15:59-0400 Body mass index (BMI) [Ratio] 35.7 kg/m2 Nayeli Plottim SECUR[employer] OPERATIONS CENTER ANALYST.CNM Work Phone: [facility] 10-13-2024 15:59-0400 Body weight 94.35 kg Nayeli Plottim SECUR[employer] OPERATIONS C[employer] ANALYST.CNM Work Phone: [facility] 10-13-2024 15:59-0400 Diastolic blood pressure 66 mm[Hg] Nayeli Plotts SECURITY OPERATIONS C[employer] ANALYST.CNM Work Phone: [facility] 10-13-2024 15:59-0400 Systolic blood pressure 110 mm[Hg] Nayeli Plotts SECURITY OPERATIONS C[employer] ANALYST.CNM Work Phone: [facility] 09-28-2024 15:49-0400 Body mass index (BMI) [Ratio] 35.36 kg/m2 Denisa Bentley MD Work Phone: [facility] 09-28-2024 15:49-0400 Body weight 93.44 kg Denisa Bentley MD Work Phone: [facility] 09-28-2024 15:49-0400 Diastolic blood pressure 60 mm[Hg] Denisa Bentley MD Work Phone: [facility] 09-28-2024 15:49-0400 Systolic blood pressure 104 mm[Hg] Denisa Bentley MD Work Phone: [facility] 09-01-2024 16:17-0400 Body mass index (BMI) [Ratio] 35.02 kg/m2 Emilee Rose SEC[employer] OPER[employer] ANALYST.CNM Work Phone: [facility] 09-01-2024 16:17-0400 Body weight 92.53 kg Emilee Rose SECUR[employer] OPER[employer] ANALYST.CNM Work Phone: [facility] 09-01-2024 16:17-0400 Diastolic blood pressure 64 mm[Hg] Emilee Rose SECUR[employer] OPER[employer] ANALYST.CNM Work Phone: [facility] 09-01-2024 16:17-0400 Systolic blood pressure 116 mm[Hg] Emilee Rose SECUR[employer] OPER[employer] ANALYST.CNM Work Phone: [facility] 08-04-2024 16:16-0400 Body mass index (BMI) [Ratio] 34.16 kg/m2 Vidal Haury SECURITY OPERATIONS CENTER ANALYST.PATTERN MARKING SUPERVISOR Work Phone: [facility] 08-04-2024 16:16-0400 Body weight 90.27 kg Vidal Haury SECURITY OPERATIONS C[employer] ANALYST.PATTERN MARKING SUPERVISOR Work Phone: [facility] [facility] 08-04-2024 16:16-0400 Diastolic blood pressure 60 mm[Hg] Vidal Haury SECURITY OPERATIONS CENTER ANALYST.PATTERN MARKING SUPERVISOR Work Phone: [facility] 08-04-2024 16:16-0400 Systolic blood pressure 112 mm[Hg] Vidal Haury SECURITY OPERATIONS CENTER ANALYST.PATTERN MARKING SUPERVISOR Work Phone: [facility] 07-07-2024 16:06-0500 Body mass index (BMI) [Ratio] 33.99 kg/m2 Esther Link MD Work Phone: [facility] 07-07-2024 16:06-0500 Body weight 89.81 kg Esther Link MD Work Phone: [facility] 07-07-2024 16:06-0500 Diastolic blood pressure 64 mm[Hg] Esther Link MD Work Phone: [facility] 07-07-2024 16:06-0500 Systolic blood pressure 118 mm[Hg] Esther Link MD Work Phone: [facility] 06-22-2024 14:33-0500 Body mass index (BMI) [Ratio] 33.81 kg/m2 Deinsa Bentley MD Work Phone: [facility] 06-22-2024 14:33-0500 Body weight 89.36 kg Denisa Bentley MD Work Phone: [facility] 06-22-2024 14:33-0500 Diastolic blood pressure 70 mm[Hg] Denisa Bentley MD Work Phone: [facility] 06-22-2024 14:33-0500 Systolic blood pressure 118 mm[Hg] Denisa Bentley MD Work Phone: [facility] 06-16-2024 17:23-0500 Body mass index (BMI) [Ratio] 33.98 kg/m2 Candis Baez SECURITY OPERATIONS CENTER ANALYST.PATTERN MARKING SUPERVISOR Work Phone: [facility] 06-16-2024 17:23-0500 Body temperature 98.4 [degF] Candis Baez SECURITY OPERATIONS CENTER ANALYST.PATTERN MARKING SUPERVISOR Work Phone: [facility] 06-16-2024 17:23-0500 Body weight 89.8 kg Candis Baez SECURITY OPERATIONS CENTER ANALYST.PATTERN MARKING SUPERVISOR Work Phone: [facility] 06-16-2024 17:23-0500 Diastolic blood pressure 66 mm[Hg] Candis Garciahoalaina SECURITY OPERATIONS CENTER ANALYST.PATTERN MARKING SUPERVISOR Work Phone: [facility] 06-16-2024 17:23-0500 Heart rate 72 /min Candis Baez SECURITY OPERATIONS CENTER ANALYST.PATTERN MARKING SUPERVISOR Work Phone: [facility] 06-16-2024 17:23-0500 Respiratory rate 16 /min Candis Baez SECURITY OPERATIONS CENTER ANALYST.PATTERN MARKING SUPERVISOR Work Phone: [facility] 06-16-2024 17:23-0500 SaO2% (BldA) [Mass fraction] 99 % Candis Garciahoalaina SECURITY OPERATIONS CENTER ANALYST.PATTERN MARKING SUPERVISOR Work Phone: [facility] 06-16-2024 17:23-0500 Systolic blood pressure 110 mm[Hg] Candis Baez SECURITY OPERATIONS CENTER ANALYST.PATTERN MARKING SUPERVISOR Work Phone: [facility] 06-09-2024 16:13-0500 Body mass index (BMI) [Ratio] 34.33 kg/m2 Emilee oRse APRN.AMENA Work Phone: [facility] 06-09-2024 16:13-0500 Body weight 90.72 kg Emilee Rose SECURITY OPERATIONS CENTER ANALYST.CNM Work Phone: [facility] 06-09-2024 16:13-0500 Diastolic blood pressure 64 mm[Hg] Emilee Rose SECURITY OPERATIONS CENTER ANALYST.CNM Work Phone: [facility] 06-09-2024 16:13-0500 Systolic blood pressure 116 mm[Hg] Emilee Rose SECURITY OPERATIONS CENTER ANALYST.CNM Work Phone: [facility] 06-01-2024 16:43-0500 Body mass index (BMI) [Ratio] 35.26 kg/m2 Dyan Rajguru SECURITY OPERATIONS CENTER ANALYST.PATTERN MARKING SUPERVISOR Work Phone: [facility] 06-01-2024 16:43-0500 Body weight 93.17 kg Dyan Tashiguru SECURITY OPERATIONS CENTER ANALYST.PATTERN MARKING SUPERVISOR Work Phone: [facility] 06-01-2024 16:43-0500 Diastolic blood pressure 60 mm[Hg] Dyan Rajguru SECURITY OPERATIONS CENTER ANALYST.PATTERN MARKING SUPERVISOR Work Phone: [facility] 06-01-2024 16:43-0500 Heart rate 88 /min Dyan Rajguru SECURITY OPERATIONS CENTER ANALYST.PATTERN MARKING SUPERVISOR Work Phone: [facility] 06-01-2024 16:43-0500 Respiratory rate 18 /min Dyan Rajguru SECURITY OPERATIONS CENTER ANALYST.PATTERN MARKING SUPERVISOR Work Phone: [facility] 06-01-2024 16:43-0500 Systolic blood pressure 134 mm[Hg] Dyan Rajguru SECURITY OPERATIONS CENTER ANALYST.PATTERN MARKING SUPERVISOR Work Phone: [facility] 05-12-2024 13:03-0500 Body height 162.6 cm Emilee Rose SECURITY OPERATIONS CENTER ANALYST.CNM Work Phone: [facility] 05-12-2024 13:03-0500 Body mass index (BMI) [Ratio] 35.36 kg/m2 Emilee Rose SECURITY OPERATIONS CENTER ANALYST.CNM Work Phone: [facility] 05-12-2024 13:03-0500 Body weight 93.44 kg Emilee Rose SECURITY OPERATIONS CENTER ANALYST.CNM Work Phone: [facility] 05-12-2024 13:03-0500 Diastolic blood pressure 68 mm[Hg] Emilee Rose SECURITY OPERATIONS CENTER ANALYST.CNM Work Phone: [facility] 05-12-2024 13:03-0500 Systolic blood pressure 110 mm[Hg] Emilee Rose SECURITY OPERATIONS CENTER ANALYST.CNM Work Phone: [facility] 05-10-2024 08:11-0500 Body mass index (BMI) [Ratio] 34.16 kg/m2 Светлана Srinivasan SECURITY OPERATIONS CENTER ANALYST.PATTERN MARKING SUPERVISOR Work Phone: [facility] 05-10-2024 08:11-0500 Body weight 90.27 kg Светлана Srinivasan SECURITY OPERATIONS CENTER ANALYST.PATTERN MARKING SUPERVISOR Work Phone: [facility] 05-10-2024 08:11-0500 Diastolic blood pressure 64 mm[Hg] Светлана Haagen SECURITY OPERATIONS CENTER ANALYST.PATTERN MARKING SUPERVISOR Work Phone: [facility] 05-10-2024 08:11-0500 Heart rate 68 /min Светлана Srinivasan SECURITY OPERATIONS CENTER ANALYST.PATTERN MARKING SUPERVISOR Work Phone: [facility] 05-10-2024 08:11-0500 Systolic blood pressure 108 mm[Hg] Светлана Haagen SECURITY OPERATIONS CENTER ANALYST.PATTERN MARKING SUPERVISOR Work Phone: [facility] 01-27-2024 16:08-0400 Diastolic blood pressure 84 mm[Hg] Светлана Haagen SECUR[employer] OPERATIONS CENTER ANALYST.PATTERN MARKING SUPERVISOR Work Phone: [facility] 01-27-2024 16:08-0400 Heart rate 71 /min Светлана Haagen SECUR[employer] OPERATIONS CENTER ANALYST.PATTERN MARKING SUPERVISOR Work Phone: [facility] 01-27-2024 16:08-0400 Respiratory rate 16 /min Светлана Kimbroughagen SECURITY OPERATIONS CENTER ANALYST.PATTERN MARKING SUPERVISOR Work Phone: [facility] 01-27-2024 16:08-0400 SaO2% (BldA) [Mass fraction] 99 % Светлана Srinivasan SECURITY OPERATIONS CENTER ANALYST.PATTERN MARKING SUPERVISOR Work Phone: [facility] 01-27-2024 16:08-0400 Systolic blood pressure 128 mm[Hg] Светлана Haagen SECUR[employer] OPERATIONS CENTER ANALYST.PATTERN MARKING SUPERVISOR Work Phone: [facility] 10-06-2023 18:08-0400 Body mass index (BMI) [Ratio] 35.87 kg/m2 Светлана Srinivasan SECURITY OPERATIONS CENTER ANALYST.PATTERN MARKING SUPERVISOR Work Phone: [facility] 10-06-2023 18:08-0400 Body weight 94.8 kg Светлана Srinivasan SECURITY OPERATIONS CENTER ANALYST.PATTERN MARKING SUPERVISOR Work Phone: [facility] 10-06-2023 18:08-0400 Diastolic blood pressure 72 mm[Hg] Светлана Haagen SECURITY OPERATIONS CENTER ANALYST.PATTERN MARKING SUPERVISOR Work Phone: [facility] 10-06-2023 18:08-0400 Heart rate 98 /min Светлана Srinivasan SECURITY OPERATIONS CENTER ANALYST.PATTERN MARKING SUPERVISOR Work Phone: [facility] 10-06-2023 18:08-0400 Respiratory rate 16 /min Светлана Srinivasan SECURITY OPERATIONS CENTER ANALYST.PATTERN MARKING SUPERVISOR Work Phone: [facility] 10-06-2023 18:08-0400 SaO2% (BldA) [Mass fraction] 98 % Светлана Srinivasan SECUR[employer] OPER[employer] CENTER ANALYST.PATTERN MARKING SUPERVISOR Work Phone: [facility] 10-06-2023 18:08-0400 Systolic blood pressure 120 mm[Hg] Светлана Srinivasan SECURITY OPERATIONS CENTER ANALYST.PATTERN MARKING SUPERVISOR Work Phone: [facility] 08-08-2023 16:07-0400 Body height 162.6 cm Emilee Rose SECURITY OPERATIONS CENTER ANALYST.CNM Work Phone: [facility] 08-08-2023 16:07-0400 Body weight 96.62 kg Emilee Rose SECURITY OPERATIONS CENTER ANALYST.CNM Work Phone: [facility] 08-08-2023 16:07-0400 Diastolic blood pressure 72 mm[Hg] Emilee Rose SECUR[employer] OPERATIONS CENTER ANALYST.CNM Work Phone: [facility] 08-08-2023 16:07-0400 Systolic blood pressure 114 mm[Hg] Emilee Rose SECUR[employer] OPERATIONS CENTER ANALYST.CNM Work Phone: [facility] 06-16-2023 09:44-0500 Diastolic blood pressure 72 mm[Hg] Светлана Haagen SECURITY OPERATIONS CENTER ANALYST.PATTERN MARKING SUPERVISOR Work Phone: [facility] 06-16-2023 09:44-0500 Heart rate 98 /min Светлана Haagen SECURITY OPERATIONS CENTER ANALYST.PATTERN MARKING SUPERVISOR Work Phone: [facility] 06-16-2023 09:44-0500 Respiratory rate 16 /min Светлана Haagen SECURITY OPERATIONS CENTER ANALYST.PATTERN MARKING SUPERVISOR Work Phone: [facility] 06-16-2023 09:44-0500 SaO2% (BldA) [Mass fraction] 98 % Светлана Haagen SECUR[employer] OPERATIONS CENTER ANALYST.PATTERN MARKING SUPERVISOR Work Phone: [facility] 06-16-2023 09:44-0500 Systolic blood pressure 100 mm[Hg] Светлана Haagen SECURITY OPERATIONS CENTER ANALYST.PATTERN MARKING SUPERVISOR Work Phone: [facility] 04-15-2023 14:59-0500 Diastolic blood pressure 90 mm[Hg] Светлана Haagen SECURITY OPERATIONS CENTER ANALYST.PATTERN MARKING SUPERVISOR Work Phone: [facility] 04-15-2023 14:59-0500 Heart rate 89 /min Светлана Haagen SECURITY OPERATIONS CENTER ANALYST.PATTERN MARKING SUPERVISOR Work Phone: [facility] 04-15-2023 14:59-0500 Respiratory rate 16 /min Светлана Haagen SECURITY OPERATIONS CENTER ANALYST.PATTERN MARKING SUPERVISOR Work Phone: [facility] 04-15-2023 14:59-0500 SaO2% (BldA) [Mass fraction] 98 % Светлана Haagen SECUR[employer] OPERATIONS CENTER ANALYST.PATTERN MARKING SUPERVISOR Work Phone: [facility] 04-15-2023 14:59-0500 Systolic blood pressure 124 mm[Hg] Светлана Haagen SECURITY OPERATIONS CENTER ANALYST.PATTERN MARKING SUPERVISOR Work Phone: [facility] 12-23-2022 17:35-0400 Diastolic blood pressure 72 mm[Hg] Светлана Haagen SECURITY OPERATIONS CENTER ANALYST.PATTERN MARKING SUPERVISOR Work Phone: [facility] 12-23-2022 17:35-0400 Heart rate 94 /min Светлана Haagen SECURITY OPERATIONS CENTER ANALYST.PATTERN MARKING SUPERVISOR Work Phone: [facility] 12-23-2022 17:35-0400 Respiratory rate 16 /min Светлана Haagen SECURITY OPERATIONS CENTER ANALYST.PATTERN MARKING SUPERVISOR Work Phone: [facility] 12-23-2022 17:35-0400 SaO2% (BldA) [Mass fraction] 98 % Светлана Haagen SECUR[employer] OPERATIONS CENTER ANALYST.PATTERN MARKING SUPERVISOR Work Phone: [facility] 12-23-2022 17:35-0400 Systolic blood pressure 104 mm[Hg] Светлана Haagen SECURITY OPERATIONS CENTER ANALYST.PATTERN MARKING SUPERVISOR Work Phone: [facility] 08-28-2022 07:50-0400 Body weight 93.89 kg Светлана Haagen SECURITY OPERATIONS CENTER ANALYST.PATTERN MARKING SUPERVISOR Work Phone: [facility] 08-28-2022 07:50-0400 Diastolic blood pressure 66 mm[Hg] Светлана Haagen SECURITY OPERATIONS CENTER ANALYST.PATTERN MARKING SUPERVISOR Work Phone: [facility] 08-28-2022 07:50-0400 Heart rate 86 /min Светлана Haagen SECURITY OPERATIONS CENTER ANALYST.PATTERN MARKING SUPERVISOR Work Phone: [facility] 08-28-2022 07:50-0400 Respiratory rate 16 /min Светлана Haagen SECURITY OPERATIONS CENTER ANALYST.PATTERN MARKING SUPERVISOR Work Phone: [facility] 08-28-2022 07:50-0400 SaO2% (BldA) [Mass fraction] 98 % Светлана Haagen SECUR[employer] OPER[employer] CENTER ANALYST.PATTERN MARKING SUPERVISOR Work Phone: [facility] 08-28-2022 07:50-0400 Systolic blood pressure 120 mm[Hg] Светлана Haagen SECURITY OPERATIONS CENTER ANALYST.PATTERN MARKING SUPERVISOR Work Phone: [facility] 08-12-2022 07:39-0400 Body weight 95.71 kg Светлана Haagen SECURITY OPERATIONS CENTER ANALYST.PATTERN MARKING SUPERVISOR Work Phone: [facility] 08-12-2022 07:39-0400 Diastolic blood pressure 80 mm[Hg] Светлана Haagen SECURITY OPERATIONS CENTER ANALYST.PATTERN MARKING SUPERVISOR Work Phone: [facility] 08-12-2022 07:39-0400 Heart rate 102 /min Светлана Haagen SECURITY OPERATIONS CENTER ANALYST.PATTERN MARKING SUPERVISOR Work Phone: [facility] 08-12-2022 07:39-0400 Respiratory rate 16 /min Светлана Haagen SECURITY OPERATIONS CENTER ANALYST.PATTERN MARKING SUPERVISOR Work Phone: [facility] 08-12-2022 07:39-0400 SaO2% (BldA) [Mass fraction] 96 % Светлана Haagen SECUR[employer] OPERATIONS CENTER ANALYST.PATTERN MARKING SUPERVISOR Work Phone: [facility] 08-12-2022 07:39-0400 Systolic blood pressure 104 mm[Hg] Светлана Haagen SECURITY OPERATIONS CENTER ANALYST.PATTERN MARKING SUPERVISOR Work Phone: [facility] 07-03-2022 10:18-0500 Body height 162.6 cm Светлана Haagen SECURITY OPERATIONS CENTER ANALYST.PATTERN MARKING SUPERVISOR Work Phone: [facility] 07-03-2022 10:18-0500 Body weight 96.16 kg Светлана Haagen SECUR[employer] OPERATIONS CENTER ANALYST.PATTERN MARKING SUPERVISOR Work Phone: [facility] 07-03-2022 10:18-0500 Diastolic blood pressure 74 mm[Hg] Светлана Haagen SECUR[employer] OPER[employer] CENTER ANALYST.PATTERN MARKING SUPERVISOR Work Phone: [facility] 07-03-2022 10:18-0500 Heart rate 85 /min Светлана Haagen SECUR[employer] OPERATIONS CENTER ANALYST.PATTERN MARKING SUPERVISOR Work Phone: [facility] 07-03-2022 10:18-0500 Respiratory rate 16 /min Светлана Haagen SECURITY OPER[employer] CENTER ANALYST.PATTERN MARKING SUPERVISOR Work Phone: [facility] 07-03-2022 10:18-0500 SaO2% (BldA) [Mass fraction] 96 % Светлана Haagen SECUR[employer] OPER[employer] CENTER ANALYST.PATTERN MARKING SUPERVISOR Work Phone: [facility] 07-03-2022 10:18-0500 Systolic blood pressure 108 mm[Hg] Светлана Haagen SECUR[employer] OPERATIONS CENTER ANALYST.PATTERN MARKING SUPERVISOR Work Phone: [facility] 05-28-2022 09:54-0500 Body temperature 98.91 [degF] Светлана Haagen SECUR[employer] OPERATIONS CENTER ANALYST.PATTERN MARKING SUPERVISOR Work Phone: [facility] 05-28-2022 09:54-0500 Diastolic blood pressure 72 mm[Hg] Светлана Haagen SECUR[employer] OPERATIONS CENTER ANALYST.PATTERN MARKING SUPERVISOR Work Phone: [facility] 05-28-2022 09:54-0500 Heart rate 108 /min Светлана Haagen SECUR[employer] OPERATIONS CENTER ANALYST.PATTERN MARKING SUPERVISOR Work Phone: [facility] 05-28-2022 09:54-0500 Respiratory rate 18 /min Светлана Haagen SECURITY OPERATIONS CENTER ANALYST.PATTERN MARKING SUPERVISOR Work Phone: [facility] 05-28-2022 09:54-0500 SaO2% (BldA) [Mass fraction] 95 % Светлана Haagen SECUR[employer] OPER[employer] CENTER ANALYST.PATTERN MARKING SUPERVISOR Work Phone: [facility] 05-28-2022 09:54-0500 Systolic blood pressure 104 mm[Hg] Светлана Haagen SECURITY OPERATIONS CENTER ANALYST.PATTERN MARKING SUPERVISOR Work Phone: [facility] 04-17-2022 10:15-0500 Diastolic blood pressure 82 mm[Hg] Светлана Haagen SECUR[employer] OPER[employer] CENTER ANALYST.PATTERN MARKING SUPERVISOR Work Phone: [facility] 04-17-2022 10:15-0500 Heart rate 93 /min Светлана Haagen SECURITY OPERATIONS CENTER ANALYST.PATTERN MARKING SUPERVISOR Work Phone: [facility] 04-17-2022 10:15-0500 Respiratory rate 18 /min Светлана Haagen SECURITY OPERATIONS CENTER ANALYST.PATTERN MARKING SUPERVISOR Work Phone: [facility] 04-17-2022 10:15-0500 SaO2% (BldA) [Mass fraction] 98 % Светлана Haagen SECUR[employer] OPERATIONS CENTER ANALYST.PATTERN MARKING SUPERVISOR Work Phone: [facility] 04-17-2022 10:15-0500 Systolic blood pressure 138 mm[Hg] Светлана Haagen SECURITY OPERATIONS CENTER ANALYST.PATTERN MARKING SUPERVISOR Work Phone: [facility] 03-20-2022 10:42-0500 Diastolic blood pressure 78 mm[Hg] Светлана Haagen SECUR[employer] OPERATIONS CENTER ANALYST.PATTERN MARKING SUPERVISOR Work Phone: [facility] 03-20-2022 10:42-0500 Heart rate 70 /min Светлана Haagen SECUR[employer] OPER[employer] CENTER ANALYST.PATTERN MARKING SUPERVISOR Work Phone: [facility] 03-20-2022 10:42-0500 Respiratory rate 18 /min Светлана Haagen SECUR[employer] OPER[employer] CENTER ANALYST.PATTERN MARKING SUPERVISOR Work Phone: [facility] 03-20-2022 10:42-0500 SaO2% (BldA) [Mass fraction] 98 % Светлана Haagen SECUR[employer] OPER[employer] CENTER ANALYST.PATTERN MARKING SUPERVISOR Work Phone: [facility] 03-20-2022 10:42-0500 Systolic blood pressure 110 mm[Hg] Светлана Haagen SECUR[employer] OPERATIONS CENTER ANALYST.PATTERN MARKING SUPERVISOR Work Phone: [facility] 02-22-2022 13:02-0400 Body weight 94.35 kg Светлана Haagen SECUR[employer] OPER[employer] CENTER ANALYST.PATTERN MARKING SUPERVISOR Work Phone: [facility] 02-22-2022 13:02-0400 Diastolic blood pressure 70 mm[Hg] Светлана Haagen SECUR[employer] OPER[employer] CENTER ANALYST.PATTERN MARKING SUPERVISOR Work Phone: [facility] 02-22-2022 13:02-0400 Heart rate 86 /min Светлана Haagen SECUR[employer] OPER[employer] CENTER ANALYST.PATTERN MARKING SUPERVISOR Work Phone: [facility] 02-22-2022 13:02-0400 Respiratory rate 18 /min Светлана Haagen SECUR[employer] OPER[employer] CENTER ANALYST.PATTERN MARKING SUPERVISOR Work Phone: [facility] 02-22-2022 13:02-0400 SaO2% (BldA) [Mass fraction] 98 % Светлана Haagen SECUR[employer] OPER[employer] CENTER ANALYST.PATTERN MARKING SUPERVISOR Work Phone: [facility] 02-22-2022 13:02-0400 Systolic blood pressure 110 mm[Hg] Светлана Haagen SECUR[employer] OPER[employer] CENTER ANALYST.PATTERN MARKING SUPERVISOR Work Phone: [facility] 01-25-2022 15:10-0400 Body weight 93.44 kg NA Oro PA-C Work Phone: [facility] 01-25-2022 15:10-0400 Diastolic blood pressure 60 mm[Hg] NA Oro PA-C Work Phone: [facility] 01-25-2022 15:10-0400 Heart rate 89 /min NA Oro PA-C Work Phone: [facility] 01-25-2022 15:10-0400 Respiratory rate 16 /min NA Oro PA-C Work Phone: [facility] 01-25-2022 15:10-0400 SaO2% (BldA) [Mass fraction] 98 % NA Oro PA-C Work Phone: [facility] 01-25-2022 15:10-0400 Systolic blood pressure 108 mm[Hg] NA Oro PA-C Work Phone: [facility] 01-16-2022 09:42-0400 Body weight 96.16 kg Светлана Haagen SECUR[employer] OPERATIONS CENTER ANALYST.PATTERN MARKING SUPERVISOR Work Phone: [facility] 01-16-2022 09:42-0400 Diastolic blood pressure 80 mm[Hg] Светлана Haagen SECUR[employer] OPERATIONS CENTER ANALYST.PATTERN MARKING SUPERVISOR Work Phone: [facility] 01-16-2022 09:42-0400 Heart rate 75 /min Светлана Haagen SECUR[employer] OPER[employer] CENTER ANALYST.PATTERN MARKING SUPERVISOR Work Phone: [facility] 01-16-2022 09:42-0400 Respiratory rate 18 /min Светлана Haagen SECURITY OPERATIONS CENTER ANALYST.PATTERN MARKING SUPERVISOR Work Phone: [facility] 01-16-2022 09:42-0400 SaO2% (BldA) [Mass fraction] 98 % Светлана Haagen SECUR[employer] OPER[employer] CENTER ANALYST.PATTERN MARKING SUPERVISOR Work Phone: [facility] 01-16-2022 09:42-0400 Systolic blood pressure 110 mm[Hg] Светлана Haagen SECURITY OPERATIONS CENTER ANALYST.PATTERN MARKING SUPERVISOR Work Phone: [facility] 10-31-2021 14:22-0400 Body weight 96.16 kg Светлана Haagen SECUR[employer] OPERATIONS CENTER ANALYST.PATTERN MARKING SUPERVISOR Work Phone: [facility] 10-31-2021 14:22-0400 Diastolic blood pressure 76 mm[Hg] Светлана Haagen SECURITY OPERATIONS CENTER ANALYST.PATTERN MARKING SUPERVISOR Work Phone: [facility] 10-31-2021 14:22-0400 Heart rate 94 /min Светлана Haagen SECURITY OPERATIONS CENTER ANALYST.PATTERN MARKING SUPERVISOR Work Phone: [facility] 10-31-2021 14:22-0400 Respiratory rate 18 /min Светлана Haagen SECUR[employer] OPERATIONS CENTER ANALYST.PATTERN MARKING SUPERVISOR Work Phone: [facility] 10-31-2021 14:22-0400 SaO2% (BldA) [Mass fraction] 97 % Светлана Srinivasan SECUR[employer] OPERATIONS CENTER ANALYST.PATTERN MARKING SUPERVISOR Work Phone: [facility] 10-31-2021 14:22-0400 Systolic blood pressure 110 mm[Hg] Светлана Srinivasan SECURITY OPERATIONS CENTER ANALYST.PATTERN MARKING SUPERVISOR Work Phone: [facility] 10-31-2021 09:36-0400 Body height 162.6 cm Esther Link MD Work Phone: [facility] 10-31-2021 09:36-0400 Body weight 95.71 kg Esther Link MD Work Phone: [facility] 10-31-2021 09:36-0400 Diastolic blood pressure 62 mm[Hg] Esther Link MD Work Phone: [facility] 10-31-2021 09:36-0400 Systolic blood pressure 104 mm[Hg] Esther Link MD Work Phone: [facility] 07-26-2021 11:13-0400 Body weight 93.44 kg Tres Pugh MD Work Phone: [facility] 07-26-2021 11:13-0400 Diastolic blood pressure 66 mm[Hg] Tres Pugh MD Work Phone: [facility] 07-26-2021 11:13-0400 Heart rate 50 /min Tres Pugh MD Work Phone: [facility] 07-26-2021 11:13-0400 SaO2% (BldA) [Mass fraction] 98 % Tres Pugh MD Work Phone: [facility] 07-26-2021 11:13-0400 Systolic blood pressure 102 mm[Hg] Tres Pugh MD Work Phone: [facility] Encounters Encounter Date Encounter Type Care Provider Facility Start: 12-16-2024 ambulatory Светлана Srinivasan NP Facil [facility] Start: 12-02-2024 End: 12-02-2024 [facility] [place] Start: 12-02-2024 End: 12-02-2024 [facility] [place] Comment on above: Population Health Na vigation Outreach ( to PCP/OB/) Start: 11-30-2024 End: 11-30-2024 Patient encounter procedure Esther Link MD Work Phone: OB/Gynecology Comment on above: Obesity affecting pr egnancy in third trimester, unspecified obesity type (HCC) (Primary Dx); Supervision of high risk in third trimester (HCC); Herpes simplex; 37 weeks gestation of (HCC) Start: 11-30-2024 End: 11-30-2024 [facility] Start: 11-25-2024 End: 11-25-2024 Patient encounter procedure Kendy Collins MD Work Phone: OB/Gynecology Comment on above: Obesity affecting pr egnancy in third trimester, unspecified obesity type (HCC) (Primary Dx); 37 weeks gestation of (HCC); Supervision of high risk in second trimester (HCC) Start: 11-25-2024 End: 11-25-2024 [facility] Start: 11-17-2024 End: 11-17-2024 Patient encounter procedure Denisa Bentley MD Work Phone: OB/Gynecology Comment on above: 35 weeks gestation o f (HCC) (Primary Dx); Supervision of high risk in third trimester (HCC); Obesity affecting in third trimester, unspecified obesity type (HCC) Obesity in (HCC) (Primary Dx); Supervision of high risk in third trimester (HCC); Obesity affecting in third trimester, unspecified obesity type (HCC) Start: 11-17-2024 End: 11-17-2024 ambulatory DENISA BENTLEY Facility:[facility] Start: 11-13-2024 End: 11-15-2024 Refill Nayeli Bowman APRN.CNM Work Phone: OB/Gynecology Comment on above: Refill Request Start: 11-13-2024 End: 11-15-2024 Refill Nayeli Bowman APRN.CNM Work Phone: OB/Gynecology Comment on above: Refill Request Start: 11-02-2024 End: 11-02-2024 Patient encounter procedure Denisa Bentley MD Work Phone: OB/Gynecology Comment on above: Supervision of high risk in third trimester (HCC) (Primary Dx); Obesity affecting in third trimester, unspecified obesity type (HCC); Anxiety and depression; Rubella non-immune status, antepartum (HCC); 33 weeks gestation of (HCC) Start: 11-02-2024 End: 11-02-2024 [facility] Start: 10-21-2024 End: 10-21-2024 Patient encounter procedure Kendy Collins MD Work Phone: OB/Gynecology Comment on above: Obesity affecting pr egnancy in third trimester, unspecified obesity type (HCC) (Primary Dx); Supervision of high risk in third trimester (HCC); Anxiety and depression; 32 weeks gestation of (HCC); Supervision of high risk in second trimester (HCC) Obesity in (HCC) (Primary Dx); Supervision of high risk in third trimester (HCC); Obesity affecting in third trimester, unspecified obesity type (HCC) Start: 10-21-2024 End: 10-21-2024 [facility] Start: 10-13-2024 End: 10-13-2024 Patient encounter procedure Nayeli Bowman APRN.CNM Work Phone: OB/Gynecology Comment on above: Supervision of high risk in third trimester (HCC) (Primary Dx); Obesity affecting in third trimester, unspecified obesity type (HCC); Anxiety and depression; 30 weeks gestation of (HCC) Start: 10-13-2024 End: 10-13-2024 [facility] Start: 10-06-2024 End: 10-06-2024 Refill Vidal Willis APRN.CNP Work Phone: OB/Gynecology Comment on above: Refill Request Start: 10-04-2024 End: 12-04-2024 Follow-up encounter Gail L Josh MD Work Phone: OB/Gynecology Start: 09-28-2024 End: 09-28-2024 Patient encounter procedure Denisa Bentley MD Work Phone: OB/Gynecology Comment on above: Supervision of high risk in third trimester (HCC) (Primary Dx); Obesity affecting in third trimester, unspecified obesity type (HCC); 28 weeks gestation of (HCC); Need for vaccination Start: 09-28-2024 End: 09-28-2024 [facility] Start: 09-07-2024 End: 09-07-2024 [facility] Dyan Corey APRN.PATTERN MARKING SUPERVISOR Work Phone: Psychiatry Comment on above: Generalized anxiety disorder (Primary Dx); 25 weeks gestation of (HCC) Start: 09-07-2024 End: 09-07-2024 [facility] DYAN COREY Facility:[facility] Start: 09-01-2024 End: 09-01-2024 Patient encounter procedure Emilee Rose APRN.CNM Work Phone: OB/Gynecology Comment on above: Supervision of high risk in second trimester (HCC) (Primary Dx); 24 weeks gestation of (HCC); Obesity in (HCC); Rubella non-immune status, antepartum (HCC); Anxiety and depression; Supervision of high risk in third trimester (HCC); Obesity affecting in third trimester, unspecified obesity type (HCC); Screening for diabetes mellitus Start: 09-01-2024 End: 09-01-2024 [facility] Start: 08-23-2024 End: 08-23-2024 ambulatory Vidal Willis APRN.PATTERN MARKING SUPERVISOR Work Phone: OB/Gynecology Comment on above: Zofran Prescription Start: 08-11-2024 End: 08-12-2024 Refill Gail Moreno MD Work Phone: OB/Gynecology Comment on above: Refill Request Start: 08-04-2024 End: 08-04-2024 ambulatory VIDAL WILLIS Facility:[facility] Start: 08-04-2024 End: 08-04-2024 Patient encounter procedure Vidal Willis JOSE.PATTERN MARKING SUPERVISOR Work Phone: OB/Gynecology Comment on above: Supervision of high risk in second trimester (HCC) (Primary Dx); 20 weeks gestation of (HCC); Obesity in (HCC); History of suicide attempt; Nausea and vomiting during (HCC) Encounter for anatomic survey (HCC) (Primary Dx); 20 weeks gestation of (HCC); Obesity affecting in second trimester, unspecified obesity type (HCC) Start: 08-03-2024 End: 08-03-2024 [facility] Start: 08-03-2024 End: 08-03-2024 [facility] Dyan Corey APRN.PATTERN MARKING SUPERVISOR Work Phone: Psychiatry Comment on above: Mood disorder (Prima ry Dx); Generalized anxiety disorder; Encounter for long-term (current) use of medications; 20 weeks gestation of (HCC) Start: 07-28-2024 End: 07-28-2024 Refill Gail Moreno MD Work Phone: OB/Gynecology Comment on above: Refill Request Start: 07-10-2024 End: 07-12-2024 Refill Gail Moreno MD Work Phone: OB/Gynecology Comment on above: Refill Request Start: 07-08-2024 End: 09-07-2024 Follow-up encounter Gail Moreno MD Work Phone: OB/Gynecology Start: 07-07-2024 End: 07-07-2024 [facility] Start: 07-07-2024 End: 07-07-2024 Patient encounter procedure Whi Tech 1 Machine Maintenance Technician [facility] Comment on above: Encounter for anatomic survey (Primary Dx); Obesity in ; 16 weeks gestation of Obesity in (Primary Dx); Encounter for supervision of normal first in second trimester; Anxiety and depression; Nausea and vomiting during ; 16 weeks gestation of ; Rubella non-immune status, antepartum Start: 06-23-2024 End: 06-24-2024 Refill Emilee Rose APRN.CNM Work Phone: OB/Gynecology Comment on above: Refill Request Start: 06-22-2024 End: 06-22-2024 ambulatory [facility] Facility:[facility] Start: 06-22-2024 End: 06-22-2024 Patient encounter procedure Denisa Bentley MD Work Phone: OB/Gynecology Comment on above: 14 weeks gestation o f (Primary Dx); Supervision of high risk in first trimester; Obesity in Start: 06-18-2024 End: 07-08-2024 Telephone encounter Denisa Bentley MD Work Phone: OB/Gynecology Start: 06-18-2024 End: 06-18-2024 Emergency department patient visit Светлана Srinivasan Facility:[facility] Start: 06-16-2024 End: 06-16-2024 Office outpatient visit 15 minutes Candis Baez APRN.CNP Work Phone: [facility] [place] Comment on above: URI, acute (Primary Dx) Start: 06-16-2024 End: 06-16-2024 ambulatory CANDIS BAEZ Facility:[facility] Start: 06-15-2024 End: 06-28-2024 Telephone encounter Emilee Rose APRN.CNM Work Phone: OB/Gynecology Comment on above: Orders; Appointment [employer]MLA Paperwork [facility] Ap pointment Start: 06-14-2024 End: 08-14-2024 Follow-up encounter Emilee Rose APRN.CNM Work Phone: OB/Gynecology Start: 06-09-2024 End: 06-09-2024 ambulatory [facility] Facility:[facility] Start: 06-09-2024 End: 06-09-2024 ambulatory EMILEE ROSE Facility:[facility] Start: 06-09-2024 End: 06-09-2024 Patient encounter procedure Whi Tech 1 Machine Maintenance Technician [facility] Comment on above: Encounter for antena maya screening for malformation using ultrasound (Primary Dx); Encounter for (NT) nuchal translucency scan; 12 weeks gestation of Encounter for superv ision of normal first in second trimester (Primary Dx); 12 weeks gestation of ; Obesity in ; Anxiety and depression; Nausea and vomiting during Start: 06-07-2024 End: 06-08-2024 Refill Emilee Rose APRN.CNM Work Phone: OB/Gynecology Comment on above: Refill Request Start: 06-01-2024 End: 06-01-2024 Office outpatient visit 40 minutes Dyan Corey APRN.CNP Work Phone: Psychiatry Comment on above: Mood disorder (HCC) (Primary Dx); Generalized anxiety disorder; 11 weeks gestation of ; Encounter for long-term (current) use of medications; Psychosocial stressors Start: 06-01-2024 End: 06-01-2024 ambulatory DYAN COREY Facility:[facility] Start: 05-12-2024 End: 05-12-2024 ambulatory СВЕТЛАНА SRINIVASAN Facility:[facility] Start: 05-12-2024 End: 05-12-2024 Patient encounter procedure Emilee Rose APRN.CNM Work Phone: OB/Gynecology Comment on above: Encounter for superv ision of normal first in first trimester (Primary Dx); with uncertain dates, antepartum; Obesity in ; Anxiety and depression; Cold sores; History of suicide attempt; Supervision of high risk in first trimester; Nausea and vomiting in Refill Request Start: 05-10-2024 End: 05-10-2024 Emergency department patient visit [facility] Facility:[facility] Start: 05-10-2024 End: 05-10-2024 Office outpatient visit 15 minutes Светлана Srinivasan APRN.PATTERN MARKING SUPERVISOR Work Phone: [facility] [place] Comment on above: Morning sickness (Pr imary Dx) Start: 05-10-2024 End: 05-10-2024 ambulatory Anca Luis RN NURSE FINANCE ADMIN Comment on above: Opened In Error Start: 05-07-2024 End: 05-07-2024 Telephone encounter Nayeli Bowman APRN.CNM Work Phone: OB/Gynecology Comment on above: Early OB N/V Start: 05-06-2024 End: 05-06-2024 Telemedicine consultation with patient Nayeli Bowman JOSE.CNVeronica Work Phone: OB/Gynecology Start: 05-06-2024 End: 05-06-2024 ambulatory Nayeli Bowman ODILON Work Phone: OB/Gynecology Comment on above: Nausea and vomiting during (Primary Dx); 8 weeks gestation of Start: 05-02-2024 End: 05-02-2024 ambulatory Windy Zabala RN NURSE FINANCE ADMIN Start: 05-02-2024 End: 05-02-2024 Patient encounter procedure Windy Zabala RN NURSE FINANCE ADMIN Comment on above: Clinical Update Start: 04-20-2024 End: 04-20-2024 Telephone encounter Dyan Corey APRN.CNP Work Phone: Psychiatry Comment on above: Appointment Start: 04-18-2024 End: 05-03-2024 ambulatory Emilee Rose APRN.CNVeronica Work Phone: OB/Gynecology Comment on above: Start: 03-29-2024 End: 03-29-2024 ambulatory DYAN COREY Facility:[facility] Start: 03-29-2024 End: 03-29-2024 [facility] Dyan Corey APRN.CNP Work Phone: Psychiatry Comment on above: Mood disorder (HCC) (Primary Dx); Generalized anxiety disorder; Encounter for long-term (current) use of medications; Psychosocial stressors Start: 03-10-2024 End: 03-11-2024 Refill Dyan Corey APRN.CNP Work Phone: Psychiatry Comment on above: Refill Request Start: 01-27-2024 End: 01-27-2024 ambulatory [facility] Facility:[facility] Start: 01-27-2024 End: 01-27-2024 ambulatory [facility] Facility:[facility] Start: 01-27-2024 End: 01-27-2024 Office outpatient visit 15 minutes Светлана Srinivasan APRN.CNP Work Phone: [facility] [place] Comment on above: Acute constipation ( Primary Dx) Start: 12-15-2023 E-mail encounter fro m caregiver Dyan Corey APRN.DANICA Work Phone: Psychiatry Start: 12-15-2023 Follow-up encounter Dyan cherry APRN.CNP Work Phone: Psychiatry Comment on above: Follow Up Start: 12-12-2023 End: 12-12-2023 [facility] Dyan Corey APRN.PATTERN MARKING SUPERVISOR Work Phone: Psychiatry Comment on above: Mood disorder (HCC) (Primary Dx); Generalized anxiety disorder Refill Request Start: 11-12-2023 Telephone encounter Ce erickson DPVeronica Work Phone: [facility] Comment on above: Appointment Start: 10-07-2023 ambulatory Светлана Srinivasan APRN.CNP Work Phone: [facility] [place] Start: 10-07-2023 Patient encounter procedure Светлана Srinivasan APRN.PATTERN MARKING SUPERVISOR Work Phone: [facility] [place] Comment on above: EMG Referral Start: 10-06-2023 End: 10-06-2023 Office outpatient visit 25 minutes Светлана Srinivasan APRN.PATTERN MARKING SUPERVISOR Work Phone: [facility] [place] Comment on above: Dryness of both ear canals (Primary Dx); Ear pain, bilateral; Medial epicondylitis of left elbow; Back strain, subsequent encounter Start: 10-06-2023 ambulatory Светлана Srinivasan APRN.DANICA Work Phone: [facility] [place] Comment on above: Chief Complaint Start: 09-05-2023 End: 09-05-2023 [facility] Dyan Corey APRN.PATTERN MARKING SUPERVISOR Work Phone: Psychiatry Comment on above: Mood disorder (HCC) (Primary Dx); Generalized anxiety disorder Start: 09-01-2023 ambulatory Светлана Srinivasan APRN.CNP Work Phone: [facility] [place] Comment on above: Mupirocin 2% Start: 08-08-2023 End: 08-08-2023 Patient encounter procedure Emilee Rose APRN.CNM Work Phone: OB/Gynecology Comment on above: Encounter for gyneco logical examination (general) (routine) with abnormal findings (Primary Dx); Encounter for preconception consultation; Class 2 obesity without serious comorbidity with body mass index (BMI) of 36.0 to 36.9 in adult, unspecified obesity type Start: 08-08-2023 End: 08-08-2023 Patient encounter status Emilee Rose APRN.CNM Work Phone: [facility] Start: 07-17-2023 End: 07-17-2023 [facility] [employer] Dyan Corey SECURITY OPERATIONS CENTER ANALYST.PATTERN MARKING SUPERVISOR Work Phone: Psychiatry Comment on above: Mood disorder (HCC) (Primary Dx); Generalized anxiety disorder Start: 07-07-2023 End: 07-07-2023 [facility] [employer] Dyan Corey SECURITY OPERATIONS CENTER ANALYST.PATTERN MARKING SUPERVISOR Work Phone: Psychiatry Comment on above: Generalized anxiety disorder (Primary Dx); Mood disorder (HCC) Start: 06-26-2023 End: 06-26-2023 Subsequent hospital visit by physician [facility] Work Phone: Radiology Comment on above: Low back pain, unspe cified back pain laterality, unspecified chronicity, unspecified whether sciatica present [M54.50] Start: 06-16-2023 End: 06-16-2023 Office outpatient visit 25 minutes Светлана Srinivasan APRN.PATTERN MARKING SUPERVISOR Work Phone: [facility] [place] Comment on above: Low back pain, unspe cified back pain laterality, unspecified chronicity, unspecified whether sciatica present (Primary Dx); Nausea; Gastroesophageal reflux disease, unspecified whether esophagitis present Start: 05-12-2023 End: 05-12-2023 [facility] [employer] Dyan [employer] Maryana SECURITY OPERATIONS CENTER ANALYST.PATTERN MARKING SUPERVISOR Work Phone: Psychiatry Comment on above: Generalized anxiety disorder (Primary Dx); Mood disorder (HCC) Start: 04-15-2023 End: 04-15-2023 Office outpatient visit 25 minutes Светлана Srinivasan APRN.DANICA Work Phone: [facility] [place] Comment on above: Acute non-recurrent sinusitis, unspecified location (Primary Dx); Sore in nose; Family planning advice Start: 03-21-2023 End: 03-21-2023 [facility] Dyan Corey SECURITY OPERATIONS CENTER ANALYST.PATTERN MARKING SUPERVISOR Work Phone: Psychiatry Comment on above: Generalized anxiety disorder (Primary Dx); Mood disorder (HCC) Start: 03-17-2023 ambulatory Dyan silvestre SECURITY OPERATIONS CENTER ANALYST.PATTERN MARKING SUPERVISOR Work Phone: [facility] Start: 03-17-2023 Follow-up encounter Dyan cherry SECURITY OPERATIONS CENTER ANALYST.PATTERN MARKING SUPERVISOR Work Phone: Psychiatry Comment on above: Follow Up from 03/07 Start: 02-27-2023 ambulatory Dyan silvestre SECURITY OPERATIONS CENTER ANALYST.PATTERN MARKING SUPERVISOR Work Phone: Psychiatry Comment on above: Possible Side Effect Start: 02-12-2023 End: 02-12-2023 [facility] Dyan Corey SECURITY OPERATIONS CENTER ANALYST.PATTERN MARKING SUPERVISOR Work Phone: Psychiatry Comment on above: Mood disorder (HCC) (Primary Dx); Generalized anxiety disorder Start: 02-11-2023 ambulatory Светлана Srinivasan SECURITY OPERATIONS CENTER ANALYST.PATTERN MARKING SUPERVISOR Work Phone: [facility] Start: 02-11-2023 Patient encounter procedure Светлана Srinivasan APRN.PATTERN MARKING SUPERVISOR Work Phone: [facility] [place] Comment on above: Dr Zaidi Appointment Start: 02-06-2023 Telephone encounter Светлана epps APRN.PATTERN MARKING SUPERVISOR Work Phone: [facility] [place] Comment on above: Referral Request Start: 12-23-2022 End: 12-23-2022 Office outpatient visit 15 minutes Светлана Srinivasan APRN.PATTERN MARKING SUPERVISOR Work Phone: [facility] [place] Comment on above: Bilateral hand pain (Primary Dx); Acute pain of right shoulder Start: 12-06-2022 ambulatory Светлана Srinivsaan APRN.PATTERN MARKING SUPERVISOR Work Phone: [facility] [place] Comment on above: Possible Carpal Tunn el, Bursitis/Arthritis of Shoulders Start: 10-16-2022 ambulatory Светлана Srinivasan APRN.PATTERN MARKING SUPERVISOR Work Phone: [facility] [place] Comment on above: Possible Lingering Y east Infection Start: 08-28-2022 End: 08-28-2022 Office outpatient visit 15 minutes Светлана Srinivasan APRN.PATTERN MARKING SUPERVISOR Work Phone: [facility] [place] Comment on above: Moderate episode of recurrent major depressive disorder (HCC) (Primary Dx); Bacterial sinusitis; Candidiasis Start: 08-12-2022 End: 08-12-2022 Office outpatient visit 25 minutes Светлана Srinivasan APRN.PATTERN MARKING SUPERVISOR Work Phone: [facility] [place] Comment on above: Moderate episode of recurrent major depressive disorder (HCC) (Primary Dx); Bacterial sinusitis; Candidiasis Start: 08-11-2022 ambulatory Anca Burgos RN NU RSE FINANCE ADMIN Comment on above: Vaginal Discharge Start: 07-10-2022 ambulatory Светлана Srinivasan APRN.PATTERN MARKING SUPERVISOR Work Phone: [facility] [place] Comment on above: goodrx for Pristiq Start: 07-10-2022 E-mail encounter fro m caregiver Светлана Srinivasan APRN.PATTERN MARKING SUPERVISOR Work Phone: [facility] Start: 07-10-2022 Telephone encounter Светлана epps APRN.PATTERN MARKING SUPERVISOR Work Phone: [facility] [place] Comment on above: Insurance Authorizat ion (Pristiq ) Start: 07-03-2022 End: 07-03-2022 Office outpatient visit 15 minutes Светлана Srinivasan APRN.PATTERN MARKING SUPERVISOR Work Phone: [facility] [place] Comment on above: Anxiety and depressi on Start: 06-08-2022 Refill Светлана Srinivasan APRN.PATTERN MARKING SUPERVISOR Work Phone: [facility] [place] Comment on above: Refill Request Start: 05-28-2022 ambulatory Gladys Morris RN NURSE FINANCE ADMIN Comment on above: Sore Throat Earache Start: 05-28-2022 End: 05-28-2022 Office outpatient visit 15 minutes Светлана Srinivasan APRN.PATTERN MARKING SUPERVISOR Work Phone: [facility] [place] Comment on above: Symptoms of upper re spiratory infection (URI) (Primary Dx) Start: 04-22-2022 ambulatory Светлана Haagen SECURITY OPERATIONS CENTER ANALYST.PATTERN MARKING SUPERVISOR Work Phone: [facility] [place] Comment on above: Sinus infection Start: 04-17-2022 End: 04-17-2022 Office outpatient visit 15 minutes Светлана Srinivasan SECURITY OPERATIONS CENTER ANALYST.PATTERN MARKING SUPERVISOR Work Phone: [facility] [place] Comment on above: Anxiety and depressi on (Primary Dx); Recurrent cold sores; Symptoms of upper respiratory infection (URI) Start: 03-22-2022 Telephone encounter Светлана epps APRN.PATTERN MARKING SUPERVISOR Work Phone: [facility] [place] Comment on above: Patient Update Start: 03-20-2022 End: 03-20-2022 Office outpatient visit 15 minutes Светлана Srinivasan SECURITY OPERATIONS CENTER ANALYST.PATTERN MARKING SUPERVISOR Work Phone: [facility] [place] Comment on above: Recurrent major depr essive disorder, in remission (HCC) (Primary Dx) Start: 03-05-2022 Telephone encounter Светлана epps APRN.PATTERN MARKING SUPERVISOR Work Phone: [facility] [place] Comment on above: Orders Start: 02-22-2022 End: 02-22-2022 Office outpatient visit 15 minutes Светлана Srinivasan SECURITY OPERATIONS CENTER ANALYST.PATTERN MARKING SUPERVISOR Work Phone: [facility] [place] Comment on above: Anxiety and depressi on (Primary Dx) Start: 01-25-2022 End: 01-25-2022 Patient encounter andrea Oro PA-C Work Phone: [facility] [place] Comment on above: Recurrent major depr essive disorder, in remission (HCC) (Primary Dx) Start: 01-25-2022 ambulatory Светлана Srinivasan SECURITY OPERATIONS CENTER ANALYST.PATTERN MARKING SUPERVISOR Work Phone: [facility] [place] Comment on above: Worsening Symptoms Pristiq Psychiatric Problem Start: 01-18-2022 Telephone encounter Светлана epps APRN.PATTERN MARKING SUPERVISOR Work Phone: [facility] [place] Comment on above: Results Start: 01-16-2022 End: 01-16-2022 Office outpatient visit 25 minutes Светлана Srinivasan SECURITY OPERATIONS CENTER ANALYST.PATTERN MARKING SUPERVISOR Work Phone: [facility] [place] Comment on above: Recurrent major depr essive disorder, in remission (HCC) (Primary Dx); Numbness and tingling; Cold extremities Start: 11-08-2021 ambulatory Светлана Srinivasan APRN.PATTERN MARKING SUPERVISOR Work Phone: [facility] [place] Comment on above: Medication change Start: 11-04-2021 ambulatory Esther Link MD Work Phone: OB/Gynecology Comment on above: Question regarding P T ED OBSTETRICS & GYNECOLOGY Start: 10-31-2021 End: 10-31-2021 Office outpatient visit 15 minutes Светлана Srinivasan SECURITY OPERATIONS CENTER ANALYST.PATTERN MARKING SUPERVISOR Work Phone: [facility] [place] Comment on above: Recurrent major depr essive disorder, in remission (HCC) Start: 10-31-2021 End: 10-31-2021 Patient encounter procedure Esther Link MD Work Phone: OB/Gynecology Comment on above: Encounter for gyneco logical examination (general) (routine) without abnormal findings (Primary Dx); Screening for cervical cancer Start: 10-31-2021 End: 10-31-2021 Patient encounter status Esther Link MD Work Phone: OB/Gynecology Start: 09-29-2021 ambulatory Светлана Srinivasan APRN.PATTERN MARKING SUPERVISOR Work Phone: [facility] [place] Comment on above: Prescriptions Start: 09-14-2021 Telephone encounter Shobha Iqbal [facility] [place] Comment on above: Establish Care Start: 07-30-2021 ambulatory [facility] Provider Aisha Davila Comment on above: results Lab Results Start: 07-30-2021 E-mail encounter fro m caregiver [facility] Provider [facility] Start: 07-26-2021 End: 07-26-2021 Patient encounter procedure Tres Pugh MD Work Phone: [facility] [place] Comment on above: Recurrent major depr essive disorder, in remission (HCC) (Primary Dx); Eczema, unspecified type Start: 07-17-2021 Telephone encounter Britta anton APRN.PATTERN MARKING SUPERVISOR Work Phone: [facility] [place] Comment on above: error Start: 02-06-2017 Ambulatory Mahad shelton PAC Facility:[facility] Procedures Date Procedure Procedure Detail Performing Clinician Start: 11-30-2024 Urnls dip stick/tabl et rgnt non-auto w/o micrscp Esther Link MD Work Phone: Start: 11-25-2024 Urnls dip stick/tabl et rgnt non-auto w/o micrscp Kendy Collins MD Work Phone: Start: 11-17-2024 Urnls dip stick/tabl et rgnt non-auto w/o micrscp Denisa Bentley MD Work Phone: Start: 11-17-2024 Us preg uterus after 1st trimest 1/1st gestation Emilee Rose SECURITY OPERATIONS CENTER ANALYST.CNM Work Phone: Start: 10-21-2024 Us preg uterus after 1st trimest 1/1st gestation Emileegenevieve Rose SECURITY OPERATIONS CENTER ANALYST.CNM Work Phone: Start: 08-04-2024 Us preg uterus after 1st trimest 1/1st gestation Emilee Milton SECURITY OPERATIONS CENTER ANALYST.CNM Work Phone: Start: 07-07-2024 Us preg uterus after 1st trimest 1/1st gestation Emilee Milton SECURITY OPERATIONS CENTER ANALYST.CNM Work Phone: Start: 06-16-2024 STREP A MOLECULAR (POC) Candis Baez APRN.PATTERN MARKING SUPERVISOR Work Phone: Start: 06-09-2024 Antibody screen СВЕТЛАНА SRINIVASAN Comment on above: Order Comment: Speci men Type: BLOOD SPECIMEN Ordering Facility: [facility] Address: [address] [place] [address] Performed By: #### L [id number] #### [facility] CLIA [id number] [address] [place] [address] [place] [address] [place] Start: 06-09-2024 Us nuchal translucency 1st gestation Emilee Rose APRN.CNM Work Phone: Start: 06-01-2024 Follow-up visit Follow Up DYAN J RAJGURU Start: 05-12-2024 Us uterus l imited 1/> fetuses Emilee Rose SECURITY OPERATIONS CENTER ANALYST.CNM Work Phone: Start: 06-16-2023 Urnls dip stick/tabl et rgnt auto w/o microscopy Светлана Srinivasan APRN.PATTERN MARKING SUPERVISOR Work Phone: Start: 05-28-2022 COVID WITH FLUA+B, ROUTINE Светлана Srinivasan APRN.PATTERN MARKING SUPERVISOR Work Phone: Start: 05-28-2022 STREP A MOLECULAR (POC) Светлана Srinivasan APRN.PATTERN MARKING SUPERVISOR Work Phone: Plan of Treatment Date Care Activity Detail Author Start: 07-05-2070 RSV Vaccine (1 - 1-d ose 75+ series) RSV Vaccine (1 - 1-dose 75+ series) [facility] Start: 09-28-2034 Urine microalbumin profile DTaP,Tdap,Td Vaccine (10 - Td or Tdap) [facility] Start: 01-21-2029 Urine microalbumin profile [facility] Start: 01-03-2025 Influenza vaccination C [facility] Start: 12-24-2024 End: 12-24-2024 ambulatory 12/24/2024 2:30 PM EDT [facility] Psychiatry [address] [place] [address] Dyan Corey, JOSE.PATTERN MARKING SUPERVISOR [address] [place] [address] Psychiatry Start: 12-14-2024 End: 12-14-2024 Patient encounter procedure OB/Gynecology Comment on above: NST NST/OB Start: 12-08-2024 End: 12-08-2024 Patient encounter procedure OB/Gynecology Comment on above: NST NST/OB Start: 11-30-2024 End: 11-30-2024 Patient encounter procedure OB/Gynecology Comment on above: NST OB Routine Start: 11-25-2024 End: 11-25-2024 Patient encounter procedure OB/Gynecology Comment on above: NST OB Routine Start: 11-17-2024 End: 11-17-2024 Patient encounter procedure Maternal Medicine Comment on above: 36w Growth OB Routine Start: 11-02-2024 End: 11-02-2024 Patient encounter procedure OB/Gynecology Comment on above: OB Routine Start: 10-31-2024 PAP TESTING PAP TESTING [facility] Start: 10-31-2024 Screening for malign ant neoplasm of cervix [facility] Start: 10-21-2024 End: 10-21-2024 Patient encounter procedure Maternal Medicine Comment on above: 32w Growth OB Routine Start: 10-13-2024 End: 10-13-2024 Patient encounter procedure 10/13/2024 4:30 PM EDT Routine Office Visit OB/Gynecology [address] [place] [address] Nayeli Bowman APRN.CN [address] [place] [address] OB Routine OB/Gynecology Comment on above: OB Routine Start: 09-29-2024 End: 09-29-2024 Patient encounter procedure 09/29/2024 4:20 PM EDT Routine Office Visit OB/Gynecology [address] [place] [address] Esther Milligan MD [address] [place] [address] 4 WK F/U UNA OB/Gynecology Comment on above: 4 WK F/U UNA Start: 09-28-2024 End: 09-28-2024 Patient encounter procedure 09/28/2024 3:50 PM EDT Routine Office Visit OB/Gynecology [address] [place] [address] Denisa Bentley MD [address] [place] [address] 4 WK F/U UNA OB/Gynecology Comment on above: 4 WK F/U UNA Start: 09-28-2024 End: 09-28-2024 ambulatory 09/28/2024 3:45 PM EDT Results Only Giovanni Shawwn [facility] [address] [place] [address] 1 hour gct [place] [facility] Comment on above: 1 hour gct Start: 09-07-2024 End: 09-07-2024 Distance Health 09/07/2024 4:30 PM EDT [facility] Psychiatry [address] [place] [id number] Dyan Corey, SECURITY OPERATIONS CENTER ANALYST.PATTERN MARKING SUPERVISOR [address] [place] [id number] PROVIDER ORDER FOLLOW UP Psychiatry Comment on above: PROVIDER ORDER FOLLO W UP Start: 09-01-2024 End: 09-01-2024 Patient encounter procedure 09/01/2024 4:30 PM EDT Routine Office Visit OB/Gynecology [address] [place] [address] Emilee Rose APRN.CNM [address] [place] [address] 4 wk F/U UNA OB/Gynecology Comment on above: 4 wk F/U UNA Start: 09-01-2024 End: 12-01-2024 ANEMIA REFLEX PANEL ANEMIA REFLEX PANEL Lab Routine Supervision of high risk in second trimester (HCC) 24 weeks gestation of (HCC) Obesity in ([facility]) Rubella non-immune status, antepartum ([facility]) Anxiety and depression Supervision of high risk in third trimester ([facility]) Obesity affecting in third trimester, unspecified obesity type (HCC) Expected: 09/01/2024, Expires: 12/01/2024 [facility] Comment on above: Expected: 09/01/2024 , Expires: 12/01/2024 Start: 09-01-2024 End: 09-01-2025 GESTATIONAL GLUCOSE SCREEN, 1-HOUR, 50 GRAM, NON-FASTING GESTATIONAL GLUCOSE SCREEN, 1-HOUR, 50 GRAM, NON-FASTING Lab Routine Supervision of high risk in second trimester (HCC) 24 weeks gestation of (HCC) Obesity in ([facility]) Rubella non-immune status, antepartum (HCC) Anxiety and depression Supervision of high risk in third trimester (HCC) Obesity affecting in third trimester, unspecified obesity type (HCC) Screening for diabetes mellitus Expected: 09/01/2024, Expires: 09/01/2025 [facility] Comment on above: Expected: 09/01/2024 , Expires: 09/01/2025 Start: 09-01-2024 End: 09-01-2025 SYPHILIS TREPONEMAL W/REFLEX SYPHILIS TREPONEMAL W/REFLEX Lab Routine Supervision of high risk in second trimester (HCC) 24 weeks gestation of (HCC) Obesity in (HCC) Rubella non-immune status, antepartum (HCC) Anxiety and depression Supervision of high risk in third trimester (HCC) Obesity affecting in third trimester, unspecified obesity type (HCC) Expected: 09/01/2024, Expires: 09/01/2025 [facility] Comment on above: Expected: 09/01/2024 , Expires: 09/01/2025 Start: 08-09-2024 End: 08-09-2024 Patient encounter procedure 08/09/2024 4:00 PM EDT Office Visit OB/Gynecology [address] [place] [address] Emilee Rose APRN.[facility] [address] [place] [address] Annual OB/Gynecology Comment on above: Annual Start: 08-05-2024 End: 08-05-2024 Patient encounter procedure 08/05/2024 4:20 PM EDT Routine Office Visit OB/Gynecology [address] [place] [address] Kendy Collins MD [address] [place] [address] OB Routine OB/Gynecology Comment on above: OB Routine Start: 08-04-2024 End: 08-04-2024 Patient encounter procedure Maternal Medicine Comment on above: Anatomy Scan OB Routine Start: 08-03-2024 End: 08-03-2024 Follow-up encounter 08/03/2024 4:30 PM EDT [facility] Psychiatry [address] [place] [address] Dyan Corey, SECURITY OPERATIONS CENTER ANALYST.PATTERN MARKING SUPERVISOR [address] [place] [address] 2 month follow up Psychiatry Comment on above: 2 month follow up Start: 08-03-2024 End: 08-03-2024 Patient encounter procedure 08/03/2024 4:30 PM EDT Office Visit Psychiatry [address] [place] [address] Dyan Corey, SECURITY OPERATIONS CENTER ANALYST.PATTERN MARKING SUPERVISOR [address] [place] [address] 2 month follow up Psychiatry Comment on above: 2 month follow up Start: 07-07-2024 End: 07-07-2024 Patient encounter procedure OB/Gynecology Comment on above: OB Routine anatomy 16 weeks Start: 06-15-2024 End: 06-15-2025 OBSTETRIC ULTRASOUND WHI OBSTETRIC ULTRASOUND WHI Anc Imaging Routine Obesity in Supervision of high risk in first trimester Expected: 06/15/2024, Expires: 06/15/2025 [facility] Work Phone: Comment on above: Expected: 06/15/2024 , Expires: 06/15/2025 Start: 06-09-2024 End: 06-09-2024 Patient encounter procedure OB/Gynecology Comment on above: 1st OB-03/11/2024 Nuchal US Start: 06-01-2024 End: 06-01-2024 Patient encounter procedure 06/01/2024 4:30 PM EST Office Visit Psychiatry [address] [place] [phone] Dyan Corey, SECURITY OPERATIONS CENTER ANALYST.PATTERN MARKING SUPERVISOR [address] [place] [address] 4 week visit medication check Psychiatry Comment on above: 4 week visit medicat ion check Start: 05-12-2024 End: 08-11-2024 ANEMIA REFLEX PANEL ANEMIA REFLEX PANEL Lab Routine Encounter for supervision of normal first in first trimester with uncertain dates, antepartum Expected: 05/12/2024, Expires: 08/11/2024 [facility] Work Phone: Comment on above: Expected: 05/12/2024 , Expires: 08/11/2024 Start: 05-12-2024 End: 08-11-2024 Hemoglobin A1c in Blood HEMOGLOBIN A1C Lab Routine Encounter for supervision of normal first in first trimester with uncertain dates, antepartum Expected: 05/12/2024, Expires: 08/11/2024 [facility] Comment on above: Expected: 05/12/2024 , Expires: 08/11/2024 Start: 05-12-2024 End: 08-11-2024 HEMOGLOBIN EVALUATION CASCADE HEMOGLOBIN EVALUATION CASCADE Lab Routine Encounter for supervision of normal first in first trimester Expected: 05/12/2024, Expires: 08/11/2024 [facility] Comment on above: Expected: 05/12/2024 , Expires: 08/11/2024 Start: 05-12-2024 End: 08-11-2024 Hepatitis B virus surface Ag [Presence] in Serum HEPATITIS B SURFACE ANTIGEN Lab Routine Encounter for supervision of normal first in first trimester with uncertain dates, antepartum Expected: 05/12/2024, Expires: 08/11/2024 [facility] Comment on above: Expected: 05/12/2024 , Expires: 08/11/2024 Start: 05-12-2024 End: 08-11-2024 Hepatitis C virus Ab [Presence] in Serum HEPATITIS C ANTIBODY IA WITH CONFIRMATION Lab Routine Encounter for supervision of normal first in first trimester with uncertain dates, antepartum Expected: 05/12/2024, Expires: 08/11/2024 [facility] Comment on above: Expected: 05/12/2024 , Expires: 08/11/2024 Start: 05-12-2024 End: 08-11-2024 HIV 1+2 Ab [Presence] in Serum or Plasma by Immunoassay HIV 1/2 COMBO WITH REFLEX TO DIFFERENTIATION Lab Routine Encounter for supervision of normal first in first trimester with uncertain dates, antepartum Expected: 05/12/2024, Expires: 08/11/2024 [facility] Comment on above: Expected: 05/12/2024 , Expires: 08/11/2024 Start: 05-12-2024 End: 05-12-2025 NUCHAL TRANSLUCENCY WHI NUCHAL TRANSLUCENCY WHI Anc Imaging Routine Encounter for supervision of normal first in first trimester with uncertain dates, antepartum Expected: 05/12/2024, Expires: 05/12/2025 [facility] Comment on above: Expected: 05/12/2024 , Expires: 05/12/2025 Start: 05-12-2024 End: 05-12-2025 OBSTETRIC ULTRASOUND WHI OBSTETRIC ULTRASOUND WHI Anc Imaging Routine Encounter for supervision of normal first in first trimester with uncertain dates, antepartum Expected: 05/12/2024, Expires: 05/12/2025 [facility] Comment on above: Expected: 05/12/2024 , Expires: 05/12/2025 Start: 05-12-2024 End: 08-11-2024 RUBELLA IGG ANTIBODY RUBELLA IGG ANTIBODY Lab Routine Encounter for supervision of normal first in first trimester with uncertain dates, antepartum Expected: 05/12/2024, Expires: 08/11/2024 [facility] Comment on above: Expected: 05/12/2024 , Expires: 08/11/2024 Start: 05-12-2024 End: 08-11-2024 SYPHILIS TREPONEMAL W/REFLEX SYPHILIS TREPONEMAL W/REFLEX Lab Routine Encounter for supervision of normal first in first trimester with uncertain dates, antepartum Expected: 05/12/2024, Expires: 08/11/2024 [facility] Comment on above: Expected: 05/12/2024 , Expires: 08/11/2024 Start: 05-12-2024 End: 08-11-2024 TYPE + SCREEN TYPE + SCREEN Blood Bank Routine Encounter for supervision of normal first in first trimester with uncertain dates, antepartum Expected: 05/12/2024, Expires: 08/11/2024 [facility] Comment on above: Expected: 05/12/2024 , Expires: 08/11/2024 Start: 05-12-2024 End: 05-12-2024 Patient encounter procedure 05/12/2024 1:00 PM EST Initial Office Visit OB/Gynecology [address] [place] [address] Emilee Rose APRN.CN [address] [place] [address] 1st OB-03/11/2024 OB/Gynecology Comment on above: 1st OB-03/11/2024 Start: 03-29-2024 End: 03-29-2024 Follow-up encounter 03/29/2024 4:30 PM EST [facility] Psychiatry [address] [place] [id number] Dyan Corey APRN.PATTERN MARKING SUPERVISOR [address] [place] [id number] 3 month follow up Psychiatry Comment on above: 3 month follow up Start: 03-19-2024 End: 03-19-2024 Follow-up encounter 03/19/2024 4:30 PM EST [facility] [address] [place] [id number] Dyan Corey APRN.PATTERN MARKING SUPERVISOR [address] [place] [id number] 3 month follow up Psychiatry Comment on above: 3 month follow up Start: 01-27-2024 End: 04-27-2024 CBC W Auto Differential panel - Blood [facility] Work Phone: Comment on above: Expected: 01/27/2024 , Expires: 04/27/2024 Start: 01-27-2024 End: 04-27-2024 Comprehensive metabolic 2000 panel - Serum or Plasma [facility] Comment on above: Expected: 01/27/2024 , Expires: 04/27/2024 Start: 01-27-2024 End: 04-27-2024 Thyrotropin [Units/volume] in Serum or Plasma [facility] Comment on above: Expected: 01/27/2024 , Expires: 04/27/2024 Start: 01-04-2024 Covid-19 Vaccine ( season) Covid-19 Vaccine ( season) [facility] Start: 01-04-2024 Influenza vaccination C [facility] Start: 12-12-2023 End: 12-12-2023 Follow-up encounter 12/12/2023 4:30 PM EDT [facility] [address] [place] [address] Dyan Corey, SECURITY OPERATIONS CENTER ANALYST.PATTERN MARKING SUPERVISOR [address] [place] [address] 3 MONTH FOLLOW UP Psychiatry Comment on above: 3 MONTH FOLLOW UP Start: 12-10-2023 End: 12-10-2023 ambulatory 12/10/2023 2:40 PM EDT Procedure [facility] [address] [place], [place] [id number] Bilateral hand pain [M79.641, M79.642] [facility] Comment on above: Bilateral hand pain [M79.641, M79.642] Start: 09-05-2023 End: 09-05-2023 Follow-up encounter 09/05/2023 4:30 PM EDT [facility] Psychiatry [address] [place] [address] Dyan Corey, SECURITY OPERATIONS CENTER ANALYST.PATTERN MARKING SUPERVISOR [address] [place] [address] 2 MONTH FOLLOW UP Psychiatry Comment on above: 2 MONTH FOLLOW UP Start: 01-03-2023 Covid-19 Vaccine ( season) Covid-19 Vaccine ( season) [facility] Start: 01-03-2023 Influenza vaccination C [facility] Start: 02-17-2022 End: 07-18-2022 Basic metabolic 2000 panel - Serum or Plasma BASIC METABOLIC PNL Lab Routine Hypercalcemia Expected: 02/17/2022, Expires: 07/18/2022 [facility] Work Phone: Comment on above: Expected: 02/17/2022 , Expires: 07/18/2022 Start: 01-16-2022 End: 03-18-2022 Bacteria identified in Urine by Culture [facility] Work Phone: Comment on above: Expected: 01/16/2022 , Expires: 03/18/2022 Start: 01-16-2022 End: 03-18-2022 Nuclear Ab [Presence] in Serum by Immunoassay [facility] Work Phone: Comment on above: Expected: 01/16/2022 , Expires: 03/18/2022 Start: 01-03-2022 Influenza vaccination [facility] Start: 07-26-2021 End: 09-25-2021 CBC panel - Blood by Automated count [facility] Work Phone: Comment on above: Expected: 07/26/2021 , Expires: 09/25/2021 Start: 07-26-2021 End: 09-25-2021 Comprehensive metabolic 2000 panel - Serum or Plasma [facility] Work Phone: Comment on above: Expected: 07/26/2021 , Expires: 09/25/2021 Start: 07-26-2021 End: 09-25-2021 Thyrotropin [Units/volume] in Serum or Plasma [facility] Work Phone: Comment on above: Expected: 07/26/2021 , Expires: 09/25/2021 Start: 07-26-2021 End: 09-25-2021 VITAMIN B12 BLOOD [facility] Work Phone: Comment on above: Expected: 07/26/2021 , Expires: 09/25/2021 Start: 07-26-2021 End: 09-25-2021 VITAMIN D 25 HYDROXY [facility] Work Phone: Comment on above: Expected: 07/26/2021 , Expires: 09/25/2021 Start: 01-03-2021 Influenza vaccination INFLUENZA (#1) [facility] Start: 07-05-2016 PAP TESTING PAP TESTING [facility] Start: 07-05-2013 HEPATITIS C SCREENING HEPATITIS C SC REENING [facility] Start: 07-05-2013 HIV SCREENING HIV SCREENING [facility] Start: 07-05-2009 PEDS TO ADULT TRANSITION ANNUAL ASSESSMENT PEDS TO ADULT TRANSITION ANNUAL ASSESSMENT [facility] Start: 2007 PEDS TO ADULT TRANSITION INITIAL DISCUSSION PEDS TO ADULT TRANSITION INITIAL DISCUSSION [facility] Start: 07-05-2006 HPV VACCINE (1 - 2-d ose series) HPV VACCINE (1 - 2-dose series) [facility] Start: 07-05-2000 COVID-19 VACCINE (#1) COVID-19 VACCI NE (#1) [facility] Start: 07-05-2000 COVID-19 VACCINE (1) COVID-19 VACCIN E (1) [facility] Start: 01-06-1996 COVID-19 VACCINE (#1) COVID-19 VACCI NE (#1) [facility] Bacteria identified in Urine by Culture URINE CULTURE Microbiology Routine Low back pain, unspecified back pain laterality, unspecified chronicity, unspecified whether sciatica present 06/16/2023 10:12 AM [facility] Work Phone: Bacteria identified in Urine by Culture BACTERIAL CULTURE, URINE Microbiology Routine Encounter for supervision of normal first in first trimester with uncertain dates, antepartum 05/12/2024 2:06 PM [facility] BACTERIAL VAGINOSIS NAAT BACTERIAL VAGINOSIS NAAT Lab Routine Encounter for supervision of normal first in first trimester with uncertain dates, antepartum 05/12/2024 2:06 PM [facility] AB/TRICHOMONAS NAAT AB/TRICHOMONAS NAAT Lab Routine Encounter for supervision of normal first in first trimester with uncertain dates, antepartum 05/12/2024 2:06 PM [facility] Chlamydia trachomatis+Neisseria gonorrhoeae DNA [Presence] in Unspecified specimen by TELMA with probe detection GONORRHEA/CHLAMYDIA NAAT Lab Routine Encounter for supervision of normal first in first trimester with uncertain dates, antepartum 05/12/2024 2:06 PM [facility] End: 12-24-2023 EMG(NEURO/NI) EMG(NEURO/NI) EMG Routine Bilateral hand pain 1 Occurrences starting 12/23/2022 until 12/24/2023 [facility] Work Phone: Comment on above: 1 Occurrences starti ng 12/23/2022 until 12/24/2023 End: 08-22-2025 nonstress test NON-STRESS TEST Procedures Routine Supervision of high risk in third trimester (HCC) Obesity affecting in third trimester, unspecified obesity type (HCC) Once per week for 5 Occurrences starting 09/01/2024 until 08/22/2025 [facility] Work Phone: Comment on above: Once per week for 5 Occurrences starting 09/01/2024 until 08/22/2025 End: 08-16-2025 OBSTETRIC ULTRASOUND WHI OBSTETRIC ULTRASOUND WHI Anc Imaging Routine Supervision of high risk in third trimester (HCC) Obesity affecting in third trimester, unspecified obesity type (HCC) Once per month for 3 Occurrences starting 09/01/2024 until 08/16/2025 [facility] Comment on above: Once per month for 3 Occurrences starting 09/01/2024 until 08/16/2025 PAP FLUID CERVICAL SCREENING PAP FLUID CERVICAL SCREENING Lab Routine Screening for cervical cancer 10/31/2021 10:03 AM EDT [facility] Work Phone: End: 01-16-2023 PVR ANK PRESS [facility] PVR ANK PRESS [facility] Vascular Lab Routine Numbness and tingling Cold extremities 1 Occurrences starting 01/16/2022 until 01/16/2023 [facility] Work Phone: Comment on above: 1 Occurrences starti ng 01/16/2022 until 01/16/2023 ROUTINE, GR OUP B STREPTOCOCCUS BY PCR ROUTINE, GROUP B STREPTOCOCCUS BY PCR Microbiology Routine 35 weeks gestation of (HCC) Supervision of high risk in third trimester (HCC) Obesity affecting in third trimester, unspecified obesity type (HCC) Ordered: 11/17/2024 [facility] Work Phone: Comment on above: Ordered: 11/17/2024 End: 07-15-2024 US Kidney - bilateral and Urinary bladder US KIDNEY/BLADDER Radiology Routine Low back pain, unspecified back pain laterality, unspecified chronicity, unspecified whether sciatica present 1 Occurrences starting 06/16/2023 until 07/15/2024 [facility] Work Phone: Comment on above: 1 Occurrences starti ng 06/16/2023 until 07/15/2024 US Kidney - bilatera l and Urinary bladder US KIDNEY/BLADDER Radiology Routine Low back pain, unspecified back pain laterality, unspecified chronicity, unspecified whether sciatica present 06/26/2023 2:52 PM [facility] Work Phone: [facility] Immunizations Immunization Date Immunization Notes Care Provider Fa [facility] 09-28-2024 tetanus toxoid, reduced diphtheria toxoid, and acellular pertussis vaccine, adsorbed Denisa Bentley MD Work Phone: [facility] 01-21-2019 influenza, injectabl e, quadrivalent, contains preservative Tres Pugh MD Work Phone: [facility] 01-21-2019 tetanus toxoid, reduced diphtheria toxoid, and acellular pertussis vaccine, adsorbed Tres Pugh MD Work Phone: [facility] 01-21-2019 influenza virus vaccine, unspecified formulation Светлана Srinivasan APRN.CNP Work Phone: [facility] 02-17-2018 influenza, injectabl e, quadrivalent, preservative free Tres Pugh MD Work Phone: [facility] 01-02-2017 influenza, injectabl e, quadrivalent, preservative free Tres Pugh MD Work Phone: [facility] 07-11-2014 tetanus toxoid, reduced diphtheria toxoid, and acellular pertussis vaccine, adsorbed Tres Pugh MD Work Phone: [facility] 02-09-2010 influenza virus vaccine, live, attenuated, for intranasal use Tres Pugh MD Work Phone: [facility] Work Phone: 02-09-2010 tetanus toxoid, reduced diphtheria toxoid, and acellular pertussis vaccine, adsorbed Tres Pugh MD Work Phone: [facility] Work Phone: 03-21-2009 novel [id number], all formulations Tres Pugh MD Work Phone: [facility] 02-22-2009 influenza virus vaccine, live, attenuated, for intranasal use Tres Pugh MD Work Phone: [facility] Work Phone: 06-26-2000 diphtheria, tetanus toxoids and acellular pertussis vaccine Tres Pugh MD Work Phone: [facility] 06-26-2000 measles, mumps and rubella virus vaccine Tres Pugh MD Work Phone: [facility] 06-26-2000 poliovirus vaccine, inactivated Tres Pugh MD Work Phone: [facility] 09-04-1997 Chicken Pox (disease) Jordan Pugh MD Work Phone: [facility] Work Phone: 01-05-1997 diphtheria, tetanus toxoids and acellular pertussis vaccine Tres Pugh MD Work Phone: [facility] 01-05-1997 haemophilus influenz ae type b vaccine, HbOC conjugate Tres Pugh MD Work Phone: [facility] 01-05-1997 measles, mumps and rubella virus vaccine Tres Pugh MD Work Phone: [facility] 01-05-1997 poliovirus vaccine, inactivated Tres Pugh MD Work Phone: [facility] 01-12-1996 diphtheria, tetanus toxoids and acellular pertussis vaccine Tres Pugh MD Work Phone: [facility] 01-12-1996 haemophilus influenz ae type b vaccine, HbOC conjugate Tres Pugh MD Work Phone: [facility] 01-12-1996 hepatitis B vaccine, pediatric or pediatric/adolescent dosage Tres Pugh MD Work Phone: [facility] 1995 diphtheria, tetanus toxoids and acellular pertussis vaccine Tres Pugh MD Work Phone: [facility] 1995 haemophilus influenz ae type b vaccine, HbOC conjugate Tres Pugh MD Work Phone: [facility] 1995 hepatitis B vaccine, pediatric or pediatric/adolescent dosage Tres Pugh MD Work Phone: [facility] 1995 poliovirus vaccine, inactivated Tres Pugh MD Work Phone: [facility] 1995 diphtheria, tetanus toxoids and acellular pertussis vaccine Tres Pugh MD Work Phone: [facility] 1995 haemophilus influenz ae type b vaccine, HbOC conjugate Tres Pugh MD Work Phone: [facility] 1995 hepatitis B vaccine, pediatric or pediatric/adolescent dosage Tres Pugh MD Work Phone: [facility] 1995 poliovirus vaccine, inactivated Tres Pugh MD Work Phone: [facility] Payers Date Payer Category Payer Self-pay 2022 Private Health Insurance [id number] 2021 Private Health Insurance [employer] A ETNA CHOICE POS II [id number] 2021-Present [phone] [address] [place] [address] POS [id number] 2021 Private Health Insurance [id number] 2020 Unknown [id number] 2016 Unknown [id number] Unknown [id number] Unknown [id number] Unknown [id number] Social History Date Type Detail Facility Start: 01-16-2022 [facility] Start: 06-20-2021 End: 07-26-2021 Alcohol intake Not Asked [facility] Start: 02-08-2020 End: 04-16-2022 History SDOH Alcohol Frequency 2 [facility] Start: 02-08-2020 End: 06-20-2021 History SDOH Alcohol Std Drinks 1 [facility] Start: 01-21-2019 History SDOH Alcohol Comment occasional [facility] Start: 02-08-2020 End: 04-16-2022 History SDOH Social Connections Alevism 3 [facility] Start: 02-08-2020 History SDOH Physica l Activity DPW 5 [facility] Start: 02-08-2020 History SDOH Physica l Activity MPS 15 [facility] Start: 1995 Sex Assigned At Female C [facility] Start: 07-16-2021 End: 02-13-2022 Exposure to SARS-CoV-2 (event) Not sure [facility] Start: 09-26-2021 End: 05-06-2024 Alcohol intake Current drinker of alcohol (finding) [facility] Start: 09-26-2021 History SDOH Alcohol Comment rare [facility] Start: 01-16-2022 Tobacco use and exposure Smoke less tobacco non-user [facility] Start: 04-16-2022 History SDOH Physica l Activity MPS 4 [facility] Start: 04-15-2022 End: 08-03-2024 History of Social function [facility] Start: 04-15-2022 End: 08-03-2024 Social connection and isolation panel [facility] Do you belong to any clubs or organizations such as rastafarian groups, unions, fraternal or athletic groups, or school groups? Yes [facility] Are you now , , , , never or living with a partner? [facility] How often to you hav e a drink containing alcohol? Monthly or less [facility] How many standard dr inks containing alcohol do you have on a typical day? 1 or 2 [facility] How often do you hav e 6 or more drinks on 1 occasion? Never [facility] How hard is it for y ou to pay for the very basics like food, housing, medical care, and heating Not very hard [facility] Adult Depression Scr eening Assessment 2 [facility] Do you feel stress - tense, restless, nervous, or anxious, or unable to sleep at night because your mind is troubled all the time - these days [OSQ] To some extent [facility] (I/We) worried wheth er (my/our) food would run out before (I/we) got money to buy more. Never true [facility] In the past 12 month s, was there a time when you were not able to pay the mortgage or rent on time? No [facility] Start: 01-13-2019 Gender identity Identifies as female gender (finding) [facility] Start: 01-13-2019 Sexual orientation Heterosexual (fin ding) [facility] Are you now , , , , never or living with a partner? Refused [facility] Do you feel stress - tense, restless, nervous, or anxious, or unable to sleep at night because your mind is troubled all the time - these days [OSQ] Not at all [facility] (I/We) worried wheth er (my/our) food would run out before (I/we) got money to buy more. DK or Refused [facility] Start: 05-12-2024 End: 09-28-2024 Alcoholic beverage intake Ex-drinker (finding) [facility] Start: 03-25-2024 [facility] Goals Date Patient Goal Desired Activity /State Personal health goal Clinical Notes 07-17-2021 to 12-03-2024 Leo Reynolds - 12/02/2024 8:16 AM Esther Wheeler MD - 11/30/2024 4:08 PM EDTPrenatal Quick Notes - Esther Milligan MD - 11/30/2024 4:06 PM EDTPatient Instructions Note Date & Type Note Facility 12-03-2024 Note HNO ID: [id number] Author: LEO REYNOLDS, ? Service: ? Author Type: Patient Banjo Repairer Type: Progress Notes Filed: 12/03/2024 07:23 Note Text: POPULATION HEALTH NAVIGATION OUTREACH Action/FYI Responded via my chart added facilities coordinator Reason for Outreach Medicaid OB/Peds Care Gaps due: N/A Patient Contacted: Spoke to patient/parent/or legal guardian Patient identified by name and : Yes Medicaid OB/Peds actions taken: [facility]/Locker Room Clerk added Navigation Signature: Leo Reynolds Population Health Navigator December 03, 2024 7:22 AM [facility] 12-02-2024 Note HNO ID: [id number] Author: LEO REYNOLDS, ? Service: ? Author Type: Patient Banjo Repairer Type: Progress Notes Filed: 12/02/2024 08:18 Note Text: POPULATION HEALTH NAVIGATION OUTREACH Action/FYI Left message to add facilities coordinator to OB provider field, My chart sent Reason for Outreach Medicaid OB/Peds Care Gaps due: N/A Patient Contacted: Unable or unnecessary to reach patient: Unable to reach patient Left message Achaogenhart message sent Navigation Signature: Leo Reynolds Population Health Navigator December 02, 2024 8:17 AM [facility] 12-02-2024 History of Presen t illness Narrative POPULATION HEALTH NAVIGATION OUTREACH Action/FYI Left message to add facilities coordinator to OB provider field, My chart sent Reason for Outreach Medicaid OB/Peds Care Gaps due: N/A Patient Contacted: Unable or unnecessary to reach patient: Unable to reach patient Left message Achaogenhart message sent Navigation Signature: Leo Reynolds Population Health Navigator December 02, 2024 8:17 AM documented in this encounter [facility] 12-02-2024 Note Patient Outreach (EVETTE TNAV) BULLHERMINIA Pinon ([id number]) 1995 F Date Time Provider Department 12/02/24 LEO REYNOLDS During your visit today, we recorded the following information about you: Leo Reynolds 12/02/2024 8:18 AM Signed POPULATION HEALTH NAVIGATION OUTREACH Action/FYI Left message to add facilities coordinator to OB provider field, My chart sent Reason for Outreach Medicaid OB/Peds Care Gaps due: N/A Patient Contacted: Unable or unnecessary to reach patient: Unable to reach patient Left message ethologyt message sent Navigation Signature: Leo Reynolds [employer] Health Navigator December 02, 2024 8:17 AM Leo Reynolds 12/03/2024 7:23 AM Signed POPULATION HEALTH NAVIGATION OUTREACH Action/FYI Responded via my chart added facilities coordinator Reason for Outreach Medicaid OB/Peds Care Gaps due: N/A Patient Contacted: Spoke to patient/parent/or legal guardian Patient identified by name and : Yes Medicaid OB/Peds actions taken: /Locker Room Clerk added Navigation Signature: Leo Reynolds Population Health Navigator December 03, 2024 7:22 AM Allergies As of Date: 12/02/2024 Noted Allergy Reaction SEASONAL ALLERGIES 10/15/2010 14 - Other: See Comments Comments: cough, sneeze,watery eyes Date Reviewed: 11/30/2024 Reviewed by: Alvino Falcon MA - Fully Assessed Reason for Visit: Population Health Navigation Outreach [3910] Cmt: to PCP/OB Prescriptions as of 12/03/2024 - acyclovir (ZOVIRAX) 400 mg tablet Take 1 tablet by mouth every 8 hours. - ondansetron (ZOFRAN) 4 mg tablet Take 1 tablet by mouth every 6 hours as needed for nausea/vomiting. - famotidine (PEPCID AC) 20 mg tablet Take 20 mg by mouth two times a day. - docusate sodium (COLACE ORAL) Take by mouth. - polyethylene glycol 3350 (MIRALAX ORAL) Take by mouth as needed. - Aspirin 81 mg tab Take 81 mg by mouth. - doxylamine succinate (UNISOM, DOXYLAMINE, ORAL) Take by mouth. - omeprazole (PRILOSEC) 40 mg capsule Take 1 capsule by mouth once daily. - PNV no.95/ferrous fum/folic ac ( ORAL) Take 1 tablet by mouth once daily. - pyridoxine HCl, vitamin B6, (VITAMIN B-6 ORAL) Take 25 mg by mouth once daily. - valACYclovir (VALTREX) 1 gram Take 1 tablet by mouth twice daily. For cold sore outbreak - LORATADINE ORAL Take by mouth. Meds Comments as of 06/28/2016: Reviewed current med list, 09/14/2008. Chari Gan LPN Reviewed current med list, 07/04/2008. Chari Gan LPN Reviewed current med list, 06/08/2008. Chari Gan LPN Reviewed current med list, 07/31/2007. Chrai Gan LPN 06/28 smh on Prozac and control pills Problem List As Of Date 12/02/2024 Noted Resolved Recurrent major depressive disorder, in remissi*01/21/2019 Herpes simplex [B00.9] 01/21/2019 Episodic lightheadedness [R42] 09/06/2019 Anxiety and depression [F41.9, F32.A] 07/28/2020 Obesity in [O99.210] 05/12/2024 Cold sores [B00.1] 05/12/2024 History of suicide attempt [Z91.51] 05/12/2024 Supervision of high risk in second tr*05/12/2024 Nausea and vomiting in [O21.9] 05/12/2024 Rubella non-immune status, antepartum [O09.899,*06/14/2024 Encounter Status:Closed by LEO REYNOLDS on 12/02/24 [facility] 11-30-2024 Note HNO ID: [id number] Author: ESTHER MILLIGAN MD Service: ? Author Type: Physician Type: Progress Notes Filed: 11/30/2024 16:08 Note Text: NST SUMMARY PROVIDER ASSESSMENT AND INTERPRETATION Herminia Pinon Bull is a 29 year old female, , who is at 37w5d with an TIO of 12/16/2024, by Last Menstrual Period dating method. Indications for NST: Obesity Baseline: 135 Variability: Moderate Accelerations: Present 15 X 15 Decelerations: None Contractions: TOCO: occasional Interpretation: Category I and Reactive SIGNATURE: Esther Acosta MD [facility] 11-30-2024 History of Presen t illness Narrative NST SUMMARY PROVIDER ASSESSMENT AND INTERPRETATION Herminia Gottlieb is a 29 year old female, , who is at 37w5d with an TIO of 12/16/2024, by Last Menstrual Period dating method. Indications for NST: Obesity Baseline: 135 Variability: Moderate Accelerations: Present 15 X 15 Decelerations: None Contractions: TOCO: occasional Interpretation: Category I and Reactive SIGNATURE: Esther Acosta MD documented in this encounter [facility] 11-30-2024 Progress note Formatting of t his note might be different from the original. DM-Pt doing well. Denies vaginal Bleeding, Leaking fluid, or regular Contractions. Pt reports good movement. Not drinking much water. Having some increased back discomfort. Physical Exam: Gen: female in no apparent distress Abd: soft, Gravid. Non tender to palpation. See flow sheet @ 37.5 weeks Assessment & Plan Obesity affecting in third trimester, unspecified obesity type (HCC) NSTs Orders: URINE OB DIP B/O Supervision of high risk in third trimester (HCC) Orders: URINE OB DIP B/O Herpes simplex Continue acylcovir 37 weeks gestation of ([facility]) Kick counts and labor reviewed RTO weekly Orders: URINE OB DIP B/O Esther Acosta MD [facility] 11-30-2024 Miscellaneous Notes DM-Pt doing well. Denies vaginal Bleeding, Leaking fluid, or regular Contractions. Pt reports good movement. Not drinking much water. Having some increased back discomfort. Physical Exam: Gen: female in no apparent distress Abd: soft, Gravid. Non tender to palpation. See flow sheet @ 37.5 weeks Assessment & Plan Obesity affecting in third trimester, unspecified obesity type (HCC) NSTs Orders: URINE OB DIP B/O Supervision of high risk in third trimester (HCC) Orders: URINE OB DIP B/O Herpes simplex Continue acylcovir 37 weeks gestation of (HCC) Kick counts and labor reviewed RTO weekly Orders: URINE OB DIP B/O Esther Acosta MD documented in this encounter [facility] 11-30-2024 Instructions Alvino Falcon MA - 11/30/2024 3:22 PM EDT SEQUENTIAL SCREENINGS The [facility] offers sequential screenings for women who are interested in screenings for chromosomal abnormalities and certain defects during a . The sequential screen combines ultrasound and blood tests to determine the risk of chromosomal abnormalities, including Down's Syndrome (Trisomy 21) and Trisomy 18, as well as open neural tube defects including spina bifida. Ultrasound examination is performed between 11 weeks and 13 weeks gestational age. Blood tests are drawn after the ultrasound and again later in the between 15 and 21 weeks gestational age. Please let your physician know if you are interested in this testing. It will require an appointment with our land survey technician. This is not an ultrasound performed by a physician in our office during a routine visit. SIGNS AND SYMPTOMS OF LABOR 1. Contractions every 10 minutes or more often 2. Clear, pink, or brownish fluid (water) leaking from vagina 3. Feeling that baby is pushing down, pressure 4. Low, dull backache 5. Cramps that feel like a period 6. Cramps with or without diarrhea If you notice any of the above symptoms, contact our office at [phone] and ask to speak with a nurse. After hours, you can call doctors registry at [phone] OR call [facility] at [phone] and ask to have the doctor senior market intelligence consultant paged. If you consider this an emergency, dial 9-1-1 or go to your nearest emergency department. NEED HELP? Are you dealing with a violent or abusive relationship? Are you a victim of rape or sexual assult? Call [facility] ([place]) 24 hour Crisis Hotline: 413.645.5859 or 588-607-7626. MANUAL Your Guide to a Healthy manual is now on-line. Visit [email or web address] to download your free copy documented in this encounter [facility] 11-25-2024 Note HNO ID: [id number] Author: KENDY COLLINS MD Service: ? Author Type: Physician Type: Progress Notes Filed: 11/25/2024 17:43 Note Text: NST SUMMARY PROVIDER ASSESSMENT AND INTERPRETATION Herminia Gottlieb is a 29 year old female, , who is at 37w0d with an TIO of 12/16/2024, by Last Menstrual Period dating method. Indications for NST: Obesity Baseline: 135 Variability: Moderate Accelerations: Present 15 X 15 Decelerations: None Contractions: TOCO: Irregular Interpretation: Reactive SIGNATURE: Kendy Collins DO [facility] 11-25-2024 History of Presen t illness Narrative NST SUMMARY PROVIDER ASSESSMENT AND INTERPRETATION Herminia Gottlieb is a 29 year old female, , who is at 37w0d with an TIO of 12/16/2024, by Last Menstrual Period dating method. Indications for NST: Obesity Baseline: 135 Variability: Moderate Accelerations: Present 15 X 15 Decelerations: None Contractions: TOCO: Irregular Interpretation: Reactive SIGNATURE: Kendy Collins DO documented in this encounter [facility] 11-25-2024 Progress note Formatting of t his note might be different from the original. SW- pt doing well. No ctx, vb, lof. Good FM PE: Gen- NAD, well appearing Abd- Soft, gravid, NT See flowsheet A/p 37 wk gestation - H/o HSV: Cont Acyclovir - Obesity: NST reactive today - RTO 1 wk Kendy Collins DO [facility] 11-25-2024 Miscellaneous Notes SW- pt doing well. No ctx, vb, lof. Good FM PE: Gen- NAD, well appearing Abd- Soft, gravid, NT See flowsheet A/p 37 wk gestation - H/o HSV: Cont Acyclovir - Obesity: NST reactive today - RTO 1 wk Kendy Collins DO documented in this encounter [facility] 11-25-2024 Instructions Ysabel Zamora MA - 11/25/2024 3:42 PM EDT SEQUENTIAL SCREENINGS The [facility] offers sequential screenings for women who are interested in screenings for chromosomal abnormalities and certain defects during a . The sequential screen combines ultrasound and blood tests to determine the risk of chromosomal abnormalities, including Down's Syndrome (Trisomy 21) and Trisomy 18, as well as open neural tube defects including spina bifida. Ultrasound examination is performed between 11 weeks and 13 weeks gestational age. Blood tests are drawn after the ultrasound and again later in the between 15 and 21 weeks gestational age. Please let your physician know if you are interested in this testing. It will require an appointment with our land survey technician. This is not an ultrasound performed by a physician in our office during a routine visit. SIGNS AND SYMPTOMS OF LABOR 1. Contractions every 10 minutes or more often 2. Clear, pink, or brownish fluid (water) leaking from vagina 3. Feeling that baby is pushing down, pressure 4. Low, dull backache 5. Cramps that feel like a period 6. Cramps with or without diarrhea If you notice any of the above symptoms, contact our office at [phone] and ask to speak with a nurse. After hours, you can call doctors registry at [phone] OR call [facility] at [phone] and ask to have the doctor senior market intelligence consultant paged. If you consider this an emergency, dial or go to your nearest emergency department. NEED HELP? Are you dealing with a violent or abusive relationship? Are you a victim of rape or sexual assult? Call [facility] ([place]) 24 hour Crisis Hotline: 120.139.7071 or 211-987-1080. MANUAL Your Guide to a Healthy manual is now on-line. Visit [email or web address] to download your free copy documented in this encounter [facility] 11-18-2024 Note Indication Evaluation of growth, Evaluation of well-being Maternal obesity, BMI >35 Impression - Single, live, intrauterine . - presentation is cephalic. - The biometry is consistent with the assigned gestational dating. - The EFW is 2761 g, at the 48%. AC is at the 84%. - The amniotic fluid volume is normal amount with an MVP of 5.7 cm and an FABIANO of 16.4 cm. - The placenta is posterior, fundal. - BPP 12/10. - No malformations visualized on a limited survey as detailed below. Recommendations - growth scan every 4 weeks - Additional follow up as clinically indicated. Maternal Assessment Height 163 cm Height (ft) 5 ft Height (in) 4 in Physical Exam Initial weight (lb) 206 lb Initial BMI 35.36 kg/m Maternal assessment other: 1 Para 0 REMOTE READ Method Transabdominal ultrasound examination. View: Suboptimal view: limited by position Berger . Number of fetuses: 1 Dating LMP on: 03/11/2024 GA by LMP 35 w + 6 d TIO by LMP: 12/16/2024 GA by prior assessment 35 w + 6 d TIO by prior assessment: 12/16/2024 Ultrasound examination on: 11/17/2024 GA by U/S based upon: AC, BPD, Femur, HC GA by U/S 35 w + 4 d TIO by U/S: 12/18/2024 Assigned: based on stated TIO, selected on 08/04/2024 Assigned GA 35 w + 6 d Assigned TIO: 12/16/2024 General Evaluation Cardiac activity present. FHR 129 bpm. movements: present. Presentation: cephalic Placenta: Placental site: posterior, fundal Umbilical cord: Cord vessels: 3 vessel cord Amniotic fluid: Amount of AF: normal amount. MVP 5.7 cm. FABIANO 16.4 cm. Q1 5.7 cm, Q2 5.3 cm, Q3 2.9 cm, Q4 2.5 cm Biophysical Profile 2: breathing movements 2: Gross body movements 2: tone 2: Amniotic fluid volume 12/10 Biophysical profile score Growth Overview Exam date GA BPD (mm) HC (mm) AC (mm) FL (mm) HL (mm) EFW (g) 07/07/2024 16w 6d 35.6 53% 134.8 46% 122.4 82% 23.6 66% 22.9 66% 193 77% 08/04/2024 20w 6d 46.5 19% 180.3 37% 175.8 89% 33.8 54% 34.4 77% 426 76% 10/21/2024 32w 0d 81.1 59% 299.2 56% 297.3 90% 59.7 33% 2056 65% 11/17/2024 35w 6d 90.5 79% 317.8 34% 329.5 84% 65.6 19% 2761 48% Biometry Standard BPD 90.5 mm 36w 5d 79% Hadlock OFD 108.8 mm 32w 4d 17% Nicolaides HC 317.8 mm 34w 6d 34% Chris AC 329.5 mm 36w 6d 84% Hadlock Femur 65.6 mm 33w 4d 19% Chris EFW 2,761 g 35w 5d 48% Hadlock EFW (lb) 6 lb EFW (oz) 1 oz EFW by: Hadlock (HC-AC-FL) Extended Branch Logistics Supervisor 3.9 mm Extremities / Bony Struc FL / HC 0.21 Other Structures FHR 129 bpm Anatomy Lateral ventricles: normal Cavum septi pellucidi: normal Cerebellum: normal Cisterna magna: normal 4-chamber view: suboptimally visualized RVOT view: suboptimally visualized LVOT view: normal 3-vessel view: normal Heart / Thorax Situs: situs solitus (normal) Diaphragm: normal Stomach: normal Kidneys: normal Bladder: normal Gender: Unspecified Wants to know sex: no Performed By: Ita Patel, MARTA, RVT Read By: Concetta Alejandre M.D. [facility] 11-17-2024 Progress note Formatting of t his note might be different from the original. S: Herminia Gottlieb is a 29 year old female who presents at 12/16/2024, by Last Menstrual Period for a routine visit. Denies headache, visual changes, chest pain, shortness of breath, vaginal bleeding, leakage of fluid, or dysuria. Feeling well, no complaints. Good movement, No contractions O: See flow sheet Gen: No apparent distress Abd: Gravid, nontender VTX by US FABIANO 16 BPP 12/10 ASSESSMENT/PLAN: 1. 35 weeks gestation of ([facility]) - ICD9: V22.2, ICD10: Z3A.35 (primary diagnosis) - URINE OB DIP B/O - ROUTINE, GROUP B STREPTOCOCCUS BY PCR 2. Supervision of high risk in third trimester ([facility]) - ICD9: V23.9, ICD10: O09.93 - URINE OB DIP B/O - ROUTINE, GROUP B STREPTOCOCCUS BY PCR 3. Obesity affecting in third trimester, unspecified obesity type ([facility]) - ICD9: 649.13, ICD10: O99.213 NSTs weekly - URINE OB DIP B/O - ROUTINE, GROUP B STREPTOCOCCUS BY PCR Denisa Bentley MD [facility] 11-17-2024 Miscellaneous Notes S: Herminia Gottlieb is a 29 year old female who presents at 12/16/2024, by Last Menstrual Period for a routine visit. Denies headache, visual changes, chest pain, shortness of breath, vaginal bleeding, leakage of fluid, or dysuria. Feeling well, no complaints. Good movement, No contractions O: See flow sheet Gen: No apparent distress Abd: Gravid, nontender VTX by US FABIANO 16 BPP 12/10 ASSESSMENT/PLAN: 1. 35 weeks gestation of ([facility]) - ICD9: V22.2, ICD10: Z3A.35 (primary diagnosis) - URINE OB DIP B/O - ROUTINE, GROUP B STREPTOCOCCUS BY PCR 2. Supervision of high risk in third trimester (HCC) - ICD9: V23.9, ICD10: O09.93 - URINE OB DIP B/O - ROUTINE, GROUP B STREPTOCOCCUS BY PCR 3. Obesity affecting in third trimester, unspecified obesity type (HCC) - ICD9: 649.13, ICD10: O99.213 NSTs weekly - URINE OB DIP B/O - ROUTINE, GROUP B STREPTOCOCCUS BY PCR Denisa Bentley MD documented in this encounter [facility] 11-17-2024 Instructions Ysabel Zamora MA - 11/17/2024 4:17 PM EDT SEQUENTIAL SCREENINGS The [facility] offers sequential screenings for women who are interested in screenings for chromosomal abnormalities and certain defects during a . The sequential screen combines ultrasound and blood tests to determine the risk of chromosomal abnormalities, including Down's Syndrome (Trisomy 21) and Trisomy 18, as well as open neural tube defects including spina bifida. Ultrasound examination is performed between 11 weeks and 13 weeks gestational age. Blood tests are drawn after the ultrasound and again later in the between 15 and 21 weeks gestational age. Please let your physician know if you are interested in this testing. It will require an appointment with our land survey technician. This is not an ultrasound performed by a physician in our office during a routine visit. SIGNS AND SYMPTOMS OF LABOR 1. Contractions every 10 minutes or more often 2. Clear, pink, or brownish fluid (water) leaking from vagina 3. Feeling that baby is pushing down, pressure 4. Low, dull backache 5. Cramps that feel like a period 6. Cramps with or without diarrhea If you notice any of the above symptoms, contact our office at [phone] and ask to speak with a nurse. After hours, you can call doctors registry at [phone] OR call [facility] at [phone] and ask to have the doctor senior market intelligence consultant paged. If you consider this an emergency, dial 01-03- or go to your nearest emergency department. NEED HELP? Are you dealing with a violent or abusive relationship? Are you a victim of rape or sexual assult? Call [facility] ([place]) 24 hour Crisis Hotline: 273.245.6659 or 435-791-1595. MANUAL Your Guide to a Healthy manual is now on-line. Visit [email or web address] to download your free copy documented in this encounter [facility] 11-15-2024 Telephone encounter Note 35w4d Requested Prescriptions Pending Prescriptions Disp Refills ondansetron (ZOFRAN) 4 mg tablet 60 tablet 1 Sig: Take 1 tablet by mouth every 6 hours as needed for nausea/vomiting. Cecilia Angel RN [facility] 11-15-2024 Miscellaneous Notes 35w4d Requested Prescriptions Pending Prescriptions Disp Refills ondansetron (ZOFRAN) 4 mg tablet 60 tablet 1 Sig: Take 1 tablet by mouth every 6 hours as needed for nausea/vomiting. Cecilia Angel RN documented in this encounter [facility] 11-02-2024 Progress note Formatting of t his note might be different from the original. S: Herminia Gottlieb is a 29 year old female who presents at 12/16/2024, by Last Menstrual Period for a routine visit. Denies headache, visual changes, chest pain, shortness of breath, vaginal bleeding, leakage of fluid, or dysuria. Feeling well, no complaints. Good movement, No contractions O: See flow sheet Gen: No apparent distress Abd: Gravid, nontender Growth US next visit ASSESSMENT/PLAN: 1. Supervision of high risk in third trimester (HCC) - ICD9: V23.9, ICD10: O09.93 (primary diagnosis) 2. Obesity affecting in third trimester, unspecified obesity type (HCC) - ICD9: 649.13, ICD10: O99.213 NSTs at 36 weeks Growth q 4 3. Anxiety and depression - ICD9: 300.00, 311, ICD10: F41.9, F32.A stable 4. Rubella non-immune status, antepartum ([facility]) - ICD9: 646.83, V15.83, ICD10: O09.899, Z28.39 MMR after delivery 5. 33 weeks gestation of ([facility]) - ICD9: V22.2, ICD10: Z3A.33 Denisa Bentley MD [facility] 11-02-2024 Miscellaneous Notes S: Herminia Gottlieb is a 29 year old female who presents at 12/16/2024, by Last Menstrual Period for a routine visit. Denies headache, visual changes, chest pain, shortness of breath, vaginal bleeding, leakage of fluid, or dysuria. Feeling well, no complaints. Good movement, No contractions O: See flow sheet Gen: No apparent distress Abd: Gravid, nontender Growth US next visit ASSESSMENT/PLAN: 1. Supervision of high risk in third trimester ([facility]) - ICD9: V23.9, ICD10: O09.93 (primary diagnosis) 2. Obesity affecting in third trimester, unspecified obesity type ([facility]) - ICD9: 649.13, ICD10: O99.213 NSTs at 36 weeks Growth q 4 3. Anxiety and depression - ICD9: 300.00, 311, ICD10: F41.9, F32.A stable 4. Rubella non-immune status, antepartum ([facility]) - ICD9: 646.83, V15.83, ICD10: O09.899, Z28.39 MMR after delivery 5. 33 weeks gestation of ([facility]) - ICD9: V22.2, ICD10: Z3A.33 Denisa Bentley MD documented in this encounter [facility] 11-02-2024 Instructions Minnie Morris MA - 11/02/2024 3:45 PM EDT SEQUENTIAL SCREENINGS The [facility] offers sequential screenings for women who are interested in screenings for chromosomal abnormalities and certain defects during a . The sequential screen combines ultrasound and blood tests to determine the risk of chromosomal abnormalities, including Down's Syndrome (Trisomy 21) and Trisomy 18, as well as open neural tube defects including spina bifida. Ultrasound examination is performed between 11 weeks and 13 weeks gestational age. Blood tests are drawn after the ultrasound and again later in the between 15 and 21 weeks gestational age. Please let your physician know if you are interested in this testing. It will require an appointment with our land survey technician. This is not an ultrasound performed by a physician in our office during a routine visit. SIGNS AND SYMPTOMS OF LABOR 1. Contractions every 10 minutes or more often 2. Clear, pink, or brownish fluid (water) leaking from vagina 3. Feeling that baby is pushing down, pressure 4. Low, dull backache 5. Cramps that feel like a period 6. Cramps with or without diarrhea If you notice any of the above symptoms, contact our office at [phone] and ask to speak with a nurse. After hours, you can call doctors registry at [phone] OR call [facility] at [phone] and ask to have the doctor senior market intelligence consultant paged. If you consider this an emergency, dial 2-7-5 or go to your nearest emergency department. NEED HELP? Are you dealing with a violent or abusive relationship? Are you a victim of rape or sexual assult? Call [facility] ([place]) 24 hour Crisis Hotline: 390.833.5901 or 138-728-9902. MANUAL Your Guide to a Healthy manual is now on-line. Visit [email or web address] to download your free copy documented in this encounter [facility] 10-22-2024 Progress note Formatting of t his note might be different from the original. Anatomy ultrasound reviewed. No abnormalities identified. Follow up as clinically indicated. Please place copy in ob chart. Gail Moreno MD [facility] Work Phone: 06-20-2025 Miscellaneous Notes Anatomy ultrasound reviewed. No abnormalities identified. Follow up as clinically indicated. Please place copy in ob chart. Gail Moreno MD documented in this encounter [facility] 10-22-2024 Note Indication Evaluation of growth. Maternal obesity, BMI >30 Impression REMOTE READ - Single, live, intrauterine . - presentation is cephalic. - The biometry is consistent with the assigned gestational dating. - The EFW is 2056 g, at the 65%. AC is at the 90%. - Amniotic fluid volume is normal amount with an MVP of 5.6 cm and FABIANO of 15.9 cm. - The placenta is posterior, fundal. - No malformations visualized on a limited survey as detailed below. Recommendations - growth scan every 4 weeks - Additional follow up as clinically indicated. Maternal Assessment Height 163 cm Height (ft) 5 ft Height (in) 4 in Physical Exam Initial weight (lb) 206 lb Initial BMI 35.36 kg/m Method Transabdominal ultrasound examination Berger . Number of fetuses: 1 Dating LMP on: 03/11/2024 GA by LMP 32 w + 0 d TIO by LMP: 12/16/2024 GA by prior assessment 32 w + 0 d TIO by prior assessment: 12/16/2024 Ultrasound examination on: 10/21/2024 GA by U/S based upon: AC, BPD, Femur, HC GA by U/S 32 w + 3 d TIO by U/S: 12/13/2024 Assigned: based on stated TIO, selected on 08/04/2024 Assigned GA 32 w + 0 d Assigned TIO: 12/16/2024 General Evaluation Cardiac activity present. FHR 132 bpm. movements: present. Presentation: cephalic Placenta: Placental site: posterior, fundal Umbilical cord: Cord vessels: 3 vessel cord. Insertion site: normal insertion Amniotic fluid: Amount of AF: normal amount. MVP 5.6 cm. FABIANO 15.9 cm. Q1 4.3 cm, Q2 5.6 cm, Q3 3.9 cm, Q4 2.2 cm Growth Overview Exam date GA BPD (mm) HC (mm) AC (mm) FL (mm) HL (mm) EFW (g) 07/07/2024 16w 6d 35.6 53% 134.8 46% 122.4 82% 23.6 66% 22.9 66% 193 77% 08/04/2024 20w 6d 46.5 19% 180.3 37% 175.8 89% 33.8 54% 34.4 77% 426 76% 10/21/2024 32w 0d 81.1 59% 299.2 56% 297.3 90% 59.7 33% 2056 65% Biometry Standard BPD 81.1 mm 32w 4d 59% Hadlock OFD 107.0 mm 32w 0d 58% Nicolaides HC 299.2 mm 32w 2d 56% Chris AC 297.3 mm 33w 5d 90% Hadlock Femur 59.7 mm 31w 0d 33% Chris EFW 2,056 g 32w 3d 65% Hadlock EFW (lb) 4 lb EFW (oz) 9 oz EFW by: Hadlock (HC-AC-FL) Extended Branch Logistics Supervisor 4.4 mm Extremities / Bony Struc FL / HC 0.20 Other Structures FHR 132 bpm Anatomy Lateral ventricles: normal Cavum septi pellucidi: normal Cerebellum: normal Cisterna magna: normal 4-chamber view: normal RVOT view: suboptimally visualized LVOT view: suboptimally visualized 3-vessel view: normal Heart / Thorax Situs: situs solitus (normal) Diaphragm: normal Stomach: normal Kidneys: normal Bladder: normal Gender: Unspecified Wants to know sex: no Performed By: Rowan Lala RDMS Read By: Concetta Alejandre M.D. [facility] 10-21-2024 Note HNO ID: [id number] Author: KENDY COLLINS MD Service: ? Author Type: Physician Type: Progress Notes Filed: 10/21/2024 16:42 Note Text: SW- Pt doing well. Some nausea. No ctx, vb, lof. Good FM PE: Gen- NAD, well appearing Abd- Gravid See flowsheet A/p 32 wk gestation - Scheduled for classes at [facility] - [facility] ped - Obesity: Growth US today and final report pending. Repeat growth 36 weeks and weekly NST's - RTO 2 wks Kendy Collins DO [facility] 10-21-2024 History of Presen t illness Narrative SW- Pt doing well. Some nausea. No ctx, vb, lof. Good FM PE: Gen- NAD, well appearing Abd- Gravid See flowsheet A/p 32 wk gestation - Scheduled for classes at [facility] - Has ped - Obesity: Growth US today and final report pending. Repeat growth 36 weeks and weekly NST's - RTO 2 wks Kendy Collins DO documented in this encounter [facility] 10-13-2024 Progress note Formatting of t his note might be different from the original. S: Herminia Gottlieb is a 29 year old female who presents at 30 weeks gestation for a routine visit. Positive movements. Reports nausea is starting to return. Taking Omeprazole PO daily for acid reflux and getting relief. Unsure why nausea is returning. Stated has water aversion and it is difficult to drink. Recommended adding flavoring / electrolytes. Denies headache, visual changes, chest pain, shortness of breath, vaginal bleeding, leakage of fluid, or dysuria. O: See flow sheet Gen: No apparent distress Abd: Gravid, non tender ASSESSMENT/PLAN: 1. Supervision of high risk in third trimester 2. Obesity affecting in third trimester, unspecified obesity type 3. Anxiety and depression 4. 30 weeks gestation of - Attending breast feeding class tonight and child education class next weekend - BMI 35 - Growth US at next visit and NST's to start at 36 weeks gestation - Continue vitamin and ASA daily - Continue Prilosec 40 mg PO Daily - Hx of HSV - will start Acyclovir at 36 weeks gestation - RTO 2 weeks or sooner if needed Nayeli Bowman APRN.CNM [facility] 10-13-2024 Miscellaneous Notes S: Herminia Gottlieb is a 29 year old female who presents at 30 weeks gestation for a routine visit. Positive movements. Reports nausea is starting to return. Taking Omeprazole PO daily for acid reflux and getting relief. Unsure why nausea is returning. Stated has water aversion and it is difficult to drink. Recommended adding flavoring / electrolytes. Denies headache, visual changes, chest pain, shortness of breath, vaginal bleeding, leakage of fluid, or dysuria. O: See flow sheet Gen: No apparent distress Abd: Gravid, non tender ASSESSMENT/PLAN: 1. Supervision of high risk in third trimester 2. Obesity affecting in third trimester, unspecified obesity type 3. Anxiety and depression 4. 30 weeks gestation of - Attending breast feeding class tonight and child education class next weekend - BMI 35 - Growth US at next visit and NST's to start at 36 weeks gestation - Continue vitamin and ASA daily - Continue Prilosec 40 mg PO Daily - Hx of HSV - will start Acyclovir at 36 weeks gestation - RTO 2 weeks or sooner if needed Nayeli Bowman APRN.CNM documented in this encounter [facility] 10-13-2024 Instructions Mt Baron MA - 10/13/2024 3:56 PM EDT SEQUENTIAL SCREENINGS The [facility] offers sequential screenings for women who are interested in screenings for chromosomal abnormalities and certain defects during a . The sequential screen combines ultrasound and blood tests to determine the risk of chromosomal abnormalities, including Down's Syndrome (Trisomy 21) and Trisomy 18, as well as open neural tube defects including spina bifida. Ultrasound examination is performed between 11 weeks and 13 weeks gestational age. Blood tests are drawn after the ultrasound and again later in the between 15 and 21 weeks gestational age. Please let your physician know if you are interested in this testing. It will require an appointment with our land survey technician. This is not an ultrasound performed by a physician in our office during a routine visit. SIGNS AND SYMPTOMS OF LABOR 1. Contractions every 10 minutes or more often 2. Clear, pink, or brownish fluid (water) leaking from vagina 3. Feeling that baby is pushing down, pressure 4. Low, dull backache 5. Cramps that feel like a period 6. Cramps with or without diarrhea If you notice any of the above symptoms, contact our office at [phone] and ask to speak with a nurse. After hours, you can call doctors registry at [phone] OR call [facility] at [phone] and ask to have the doctor senior market intelligence consultant paged. If you consider this an emergency, dial 9-6 or go to your nearest emergency department. NEED HELP? Are you dealing with a violent or abusive relationship? Are you a victim of rape or sexual assult? Call [facility] ([place]) 24 hour Crisis Hotline: 559.146.7631 or 753-426-3023. MANUAL Your Guide to a Healthy manual is now on-line. Visit [email or web address] to download your free copy documented in this encounter [facility] 10-06-2024 Telephone encounter Note Refill request received via [employer]. Patient states she will run out of medication tomorrow. Patient 29w6d, last seen 09/28/24. Next appointment on 10/13/24. Ita Hayden RN [facility] 10-06-2024 Miscellaneous Notes Refill request received via [employer]. Patient states she will run out of medication tomorrow. Patient 29w6d, last seen 09/28/24. Next appointment on 10/13/24. Ita Hayden RN documented in this encounter [facility] 09-28-2024 Progress note Formatting of t his note might be different from the original. S: Herminia Gottlieb is a 29 year old female who presents at 12/16/2024, by Last Menstrual Period for a routine visit. Denies headache, visual changes, chest pain, shortness of breath, vaginal bleeding, leakage of fluid, or dysuria. Feeling well, no complaints. Good movement, No contractions O: See flow sheet Gen: No apparent distress Abd: Gravid, nontender Declined LARC Desires TDAP GCT today ASSESSMENT/PLAN: 1. Supervision of high risk in third trimester (HCC) - ICD9: V23.9, ICD10: O09.93 (primary diagnosis) 2. Obesity affecting in third trimester, unspecified obesity type (HCC) - ICD9: 649.13, ICD10: O99.213 Nsts at 36 weeks Growth q 4 3. 28 weeks gestation of (HCC) - ICD9: V22.2, ICD10: Z3A.28 PTL precautions 4. Need for vaccination - ICD9: V05.9, ICD10: Z23 TDAP today Denisa Bentley MD [facility] 09-28-2024 Miscellaneous Notes S: Herminia Gottlieb is a 29 year old female who presents at 12/16/2024, by Last Menstrual Period for a routine visit. Denies headache, visual changes, chest pain, shortness of breath, vaginal bleeding, leakage of fluid, or dysuria. Feeling well, no complaints. Good movement, No contractions O: See flow sheet Gen: No apparent distress Abd: Gravid, nontender Declined LARC Desires TDAP GCT today ASSESSMENT/PLAN: 1. Supervision of high risk in third trimester (HCC) - ICD9: V23.9, ICD10: O09.93 (primary diagnosis) 2. Obesity affecting in third trimester, unspecified obesity type (HCC) - ICD9: 649.13, ICD10: O99.213 Nsts at 36 weeks Growth q 4 3. 28 weeks gestation of (HCC) - ICD9: V22.2, ICD10: Z3A.28 PTL precautions 4. Need for vaccination - ICD9: V05.9, ICD10: Z23 TDAP today Denisa Bentley MD documented in this encounter [facility] 09-28-2024 Note HNO ID: [id number] Author: ALVINO FALCON MA Service: ? Author Type: Counter Person Type: Progress Notes Filed: 09/28/2024 16:49 Note Text: Patient identified by name and date of . Herminia Pinon Bull presents today for a vaccination of Tdap. Patient denies an allergy to latex: yes Patient denies a severe (life-threatening) allergy to a previous dose of Tdap, DTP, DTaP, DT or Td vaccine. Yes Patient denies history of epilepsy or neurological problems: Yes Patient is afebrile and denies being moderately or severely ill: Yes Patient denies history of Guillain-Appleton Syndrome (a severe paralytic illness): Yes Tdap Adacel injection was given without incident. See immunizations for details of immunizations administered today. VIS sheet provided: Yes Provider Mc was present in office at time of injection. Alvino Falcon MA [facility] 09-28-2024 History of Presen t illness Narrative Patient identified by name and date of . Herminia Pinon Bull presents today for a vaccination of Tdap. Patient denies an allergy to latex: yes Patient denies a severe (life-threatening) allergy to a previous dose of Tdap, DTP, DTaP, DT or Td vaccine. Yes Patient denies history of epilepsy or neurological problems: Yes Patient is afebrile and denies being moderately or severely ill: Yes Patient denies history of Guillain-Appleton Syndrome (a severe paralytic illness): Yes Tdap Adacel injection was given without incident. See immunizations for details of immunizations administered today. VIS sheet provided: Yes Provider Mc was present in office at time of injection. Alvino Falcon MA documented in this encounter [facility] 09-28-2024 Instructions Alvino Falcon MA - 09/28/2024 3:41 PM EDT SEQUENTIAL SCREENINGS The [facility] offers sequential screenings for women who are interested in screenings for chromosomal abnormalities and certain defects during a . The sequential screen combines ultrasound and blood tests to determine the risk of chromosomal abnormalities, including Down's Syndrome (Trisomy 21) and Trisomy 18, as well as open neural tube defects including spina bifida. Ultrasound examination is performed between 11 weeks and 13 weeks gestational age. Blood tests are drawn after the ultrasound and again later in the between 15 and 21 weeks gestational age. Please let your physician know if you are interested in this testing. It will require an appointment with our land survey technician. This is not an ultrasound performed by a physician in our office during a routine visit. SIGNS AND SYMPTOMS OF LABOR 1. Contractions every 10 minutes or more often 2. Clear, pink, or brownish fluid (water) leaking from vagina 3. Feeling that baby is pushing down, pressure 4. Low, dull backache 5. Cramps that feel like a period 6. Cramps with or without diarrhea If you notice any of the above symptoms, contact our office at [phone] and ask to speak with a nurse. After hours, you can call doctors registry at [phone] OR call [facility] at [phone] and ask to have the doctor senior market intelligence consultant paged. If you consider this an emergency, dial 9-1- or go to your nearest emergency department. NEED HELP? Are you dealing with a violent or abusive relationship? Are you a victim of rape or sexual assult? Call [facility] ([place]) 24 hour Crisis Hotline: 175.307.7053 or 480-778-7149. MANUAL Your Guide to a Healthy manual is now on-line. Visit [email or web address] to download your free copy documented in this encounter [facility] 09-07-2024 Instructions Dyan Corey, SECURITY OPERATIONS CENTER ANALYST.PATTERN MARKING SUPERVISOR - 09/07/2024 5:55 PM EDT We discussed your and current symptoms: - You are currently 25 weeks and feeling better overall, with improved energy and appetite. You have resumed taking your vitamins (day 3 today) and are tapering off Zofran. Continue to monitor how you feel as you reduce Zofran. - You are eating semi-normal meals, avoiding red sauces and spicy foods, and incorporating fruits and vegetables. Continue to eat what feels tolerable and avoid foods that trigger symptoms. - You are sleeping well in a recliner to manage reflux. Continue this as long as it is comfortable for you. We discussed your mental health: - You are not currently taking any medications for anxiety or depression, as symptoms are manageable. You are continuing bi-weekly talk therapy, which is helpful. - If you experience worsening symptoms of anxiety or depression, please reach out. Effexor (for anxiety) or Lamictal (for depression) are options if needed. Both are safe during and , though we would monitor the baby for any side effects if you are . - For more information on medication safety during , visit [email or web address] or consult your facilities coordinator. They can provide specific guidance on what to monitor in your baby. We discussed planning: - Your due date is December 16. We have scheduled a virtual check-in for December 24 at 2:30 PM. - The period is a time when mood changes can occur due to hormonal shifts. Please monitor for any symptoms of anxiety or depression and reach out if you need support. - Let your know the care plan and encourage him to contact us with any concerns during this time. Follow-up: - No additional appointments are needed before delivery unless you feel the need to start medication or have other concerns. - If you experience any significant changes in mood, anxiety, or physical symptoms, please contact us. Please continue to take care of yourself, rest when needed, and reach out if you have any questions or concerns. For those experiencing a suicidal crisis: --call the National Suicide Prevention Lifeline at 987 (264-658-1007) --text the Crisis Text Line (text HOME to 896706) --call 911 and let them know you are having a mental health crisis or go to your nearest Emergency Room for stabilization. --You can also call Mobile Crisis at [phone]. -- You may call the department appointment line at [phone] to schedule your appointment. -- Please call my nurse at [phone] or send me a message in Consert with any questions or concerns between appointments. documented in this encounter [facility] 09-07-2024 Note HNO ID: [id number] Author: DYAN COREY APRN.PATTERN MARKING SUPERVISOR Service: ? Author Type: Nurse Practitioner Type: Progress Notes Filed: 09/07/2024 17:55 Note Text: FOLLOW UP - PSYCHIATRIC PROGRESS NOTE Visit Type: Virtual Visit utilizing two-way audio and video for at least a portion of the visit. Consent for virtual visit obtained verbally. Confidentiality limitations with virtual visits reviewed with the patient and guardian, if present, who have accepted the risk verbally prior to proceeding with encounter. I have communicated my name and active licensure. The patient's identity and physical location were verified at the time of this visit. Either the patient or their legal manufacturers service representative has been informed of the risks and benefits of -- and alternatives to -- treatment through a remote evaluation and consents to proceed with the evaluation remotely. Recording using [employer] software for draft documentation of the visit was discussed with the patient/authorized manufacturers service representative; all questions welcomed and answered. Patient/authorized manufacturers service representative agreed to proceed CC: Outpatient follow-up and safety monitoring of previously prescribed psychiatric medication, psychotherapy or other treatment Last appointment with provider:06/15/2024 HPI: Patient is a 29-year-old female, currently 25 weeks , presenting for follow-up on management of anxiety and depression. Patient reports improvement in energy levels and appetite during her second trimester. She has resumed taking vitamins for the past three days and is attempting to wean off Zofran. She is able to eat semi-normal meals, incorporating vegetables and fruits, but remains cautious with red sauces and spicy foods. She has also started drinking bottled water again in the past week, noting a metallic taste in her mouth as she tapers off Zofran. She is sleeping well through the night but continues to sleep in a recliner due to concerns about reflux when lying flat. She is not currently taking Lamictal or Pristiq. She has noted a slight increase in emotional sensitivity and turbulence, which she attributes to hormonal changes and a friend's cancer diagnosis. She experiences occasional anxiety and low mood but does not feel the need for medication intervention at this time. She continues bi-weekly talk therapy sessions. Work is manageable, and she is able to handle her normal responsibilities without significant stress. She does not feel guilty about not taking on extra tasks if she does not feel up to it. Her due date is December 16. She is currently living in a makeshift kitchen due to home renovations, which she finds slightly stressful but manageable. She looks forward to completing the project in the next few weeks and settling in before the baby's arrival. Risks and benefits of the medication, including any black box warnings, were discussed with the patient. Interval Progress: Slightly improved PATIENT DATA: Generalized Anxiety Disorder Scale (SUKHWINDER-7) 05/31/2024 07/28/2024 09/05/2024 SUKHWINDER - 7 SCORES Score 4 3 4 (0-4) minimal anxiety, (5-9) mild anxiety, (10-14) moderate anxiety, (15-21) severe anxiety Patient Health Questionnaire (PHQ-9) 05/31/2024 07/28/2024 09/05/2024 PHQ-9 Score 7 6 6 (0-4) minimal depression, (5-9) mild depression, (10-14) moderate depression, (15-19) moderately severe depression, (20-27) severe depression PAST MEDICAL HISTORY Diagnosis Date Appendicitis 01/2019 Cold sores Depression Previous suicide attempt Exercise-induced asthma (HCC) PMH - PAST MEDICAL HISTORY OF 11/2004 normal color vision Varicella age 2 years PAST SURGICAL HISTORY Procedure Laterality Date EXTRACTION, ERUPTED TOOTH OR EXPOSED ROOT (ELEVATION AND/OR FORCEPS REMOVAL) LAPAROSCOPIC APPENDECTOMY 01/2019 ALLERGIES Allergen Reactions Seasonal Allergies Other: See Comments cough, sneeze,watery eyes Current Outpatient Medications on File Prior to Visit Medication Sig famotidine (PEPCID AC) 20 mg tablet Take 20 mg by mouth two times a day. docusate sodium (COLACE ORAL) Take by mouth. polyethylene glycol 3350 (MIRALAX ORAL) Take by mouth. Aspirin 81 mg tab Take 81 mg by mouth. doxylamine succinate (UNISOM, DOXYLAMINE, ORAL) Take by mouth. omeprazole (PRILOSEC) 40 mg capsule Take 1 capsule by mouth once daily. ondansetron (ZOFRAN) 4 mg tablet Take 1 tablet by mouth every 6 hours as needed for nausea/vomiting. PNV no.95/ferrous fum/folic ac ( ORAL) Take 1 tablet by mouth once daily. pyridoxine HCl, vitamin B6, (VITAMIN B-6 ORAL) Take 25 mg by mouth once daily. promethazine (PHENERGAN) 12.5 mg suppository 1 Suppository by RECTAL route every 6 hours as needed for nausea/vomiting. valACYclovir (VALTREX) 1 gram Take 1 tablet by mouth twice daily. For cold sore outbreak LORATADINE ORAL Take by mouth. No current facility-administered medications on file prior to visit. ROS: Se (more content not included)... [facility] 09-07-2024 History of Presen t illness Narrative Images from the original note were not included. FOLLOW UP - PSYCHIATRIC PROGRESS NOTE Visit Type: Virtual Visit utilizing two-way audio and video for at least a portion of the visit. Consent for virtual visit obtained verbally. Confidentiality limitations with virtual visits reviewed with the patient and guardian, if present, who have accepted the risk verbally prior to proceeding with encounter. I have communicated my name and active licensure. The patient's identity and physical location were verified at the time of this visit. Either the patient or their legal manufacturers service representative has been informed of the risks and benefits of -- and alternatives to -- treatment through a remote evaluation and consents to proceed with the evaluation remotely. Recording using [employer] software for draft documentation of the visit was discussed with the patient/authorized manufacturers service representative; all questions welcomed and answered. Patient/authorized manufacturers service representative agreed to proceed CC: Outpatient follow-up and safety monitoring of previously prescribed psychiatric medication, psychotherapy or other treatment Last appointment with provider:06/15/2024 HPI: Patient is a 29-year-old female, currently 25 weeks , presenting for follow-up on management of anxiety and depression. Patient reports improvement in energy levels and appetite during her second trimester. She has resumed taking vitamins for the past three days and is attempting to wean off Zofran. She is able to eat semi-normal meals, incorporating vegetables and fruits, but remains cautious with red sauces and spicy foods. She has also started drinking bottled water again in the past week, noting a metallic taste in her mouth as she tapers off Zofran. She is sleeping well through the night but continues to sleep in a recliner due to concerns about reflux when lying flat. She is not currently taking Lamictal or Pristiq. She has noted a slight increase in emotional sensitivity and turbulence, which she attributes to hormonal changes and a friend's cancer diagnosis. She experiences occasional anxiety and low mood but does not feel the need for medication intervention at this time. She continues bi-weekly talk therapy sessions. Work is manageable, and she is able to handle her normal responsibilities without significant stress. She does not feel guilty about not taking on extra tasks if she does not feel up to it. Her due date is December 16. She is currently living in a makeshift kitchen due to home renovations, which she finds slightly stressful but manageable. She looks forward to completing the project in the next few weeks and settling in before the baby's arrival. Risks and benefits of the medication, including any black box warnings, were discussed with the patient. Interval Progress: Slightly improved PATIENT DATA: Generalized Anxiety Disorder Scale (SUKHWINDER-7) 05/31/2024 07/28/2024 09/05/2024 SUKHWINDER - 7 SCORES Score 4 3 4 (0-4) minimal anxiety, (5-9) mild anxiety, (10-14) moderate anxiety, (15-21) severe anxiety Patient Health Questionnaire (PHQ-9) 05/31/2024 07/28/2024 09/05/2024 PHQ-9 Score 7 6 6 (0-4) minimal depression, (5-9) mild depression, (10-14) moderate depression, (15-19) moderately severe depression, (20-27) severe depression PAST MEDICAL HISTORY Diagnosis Date Appendicitis 01/2019 Cold sores Depression Previous suicide attempt Exercise-induced asthma (HCC) PMH - PAST MEDICAL HISTORY OF 11/2004 normal color vision Varicella age 2 years PAST SURGICAL HISTORY Procedure Laterality Date EXTRACTION, ERUPTED TOOTH OR EXPOSED ROOT (ELEVATION AND/OR FORCEPS REMOVAL) LAPAROSCOPIC APPENDECTOMY 01/2019 ALLERGIES Allergen Reactions Seasonal Allergies Other: See Comments cough, sneeze,watery eyes Current Outpatient Medications on File Prior to Visit Medication Sig famotidine (PEPCID AC) 20 mg tablet Take 20 mg by mouth two times a day. docusate sodium (COLACE ORAL) Take by mouth. polyethylene glycol 3350 (MIRALAX ORAL) Take by mouth. Aspirin 81 mg tab Take 81 mg by mouth. doxylamine succinate (UNISOM, DOXYLAMINE, ORAL) Take by mouth. omeprazole (PRILOSEC) 40 mg capsule Take 1 capsule by mouth once daily. ondansetron (ZOFRAN) 4 mg tablet Take 1 tablet by mouth every 6 hours as needed for nausea/vomiting. PNV no.95/ferrous fum/folic ac ( ORAL) Take 1 tablet by mouth once daily. pyridoxine HCl, vitamin B6, (VITAMIN B-6 ORAL) Take 25 mg by mouth once daily. promethazine (PHENERGAN) 12.5 mg suppository 1 Suppository by RECTAL route every 6 hours as needed for nausea/vomiting. valACYclovir (VALTREX) 1 gram Take 1 tablet by mouth twice daily. For cold sore outbreak LORATADINE ORAL Take by mouth. No current facility-administered medications on file prior to visit. ROS: See HPI PFSH: See HPI VITAL SIGNS: VITAL SIGNS: There were no vitals filed for this visit. Last 3 Encounter BP Readings: Date: BP: 09/01/2024 116/64 08/04/2024 112/60 07/07/2024 118/64 Labwork: CBC and Differential: WBC Date Value Ref Range Status 06/09/2024 8.01 3.70 - 11.00 k/uL Final RBC Date Value Ref Range Status 06/09/2024 4.72 3.90 - 5.20 m/uL Final 06/09/2024 4.69 3.90 - 5.20 m/uL Final Hematocrit Date Value Ref Range Status 06/09/2024 40.1 36.0 - 46.0 % Final 06/09/2024 40.5 36.0 - 46.0 % Final MCV Date Value Ref Range Status 06/09/2024 85.0 80.0 - 100.0 fL Final 06/09/2024 86.4 80.0 - 100.0 fL Final MCH Date Value Ref Range Status 06/09/2024 27.3 26.0 - 34.0 pg Final 06/09/2024 27.1 26.0 - 34.0 pg Final MCHC Date Value Ref Range Status 06/09/2024 32.2 30.5 - 36.0 g/dL Final 06/09/2024 31.4 30.5 - 36.0 g/dL Final Platelet Count Date Value Ref Range Status 06/09/2024 252 150 - 400 k/uL Final Comment: No clot detected. MPV Date Value Ref Range Status 06/09/2024 10.6 9.0 - 12.7 fL Final Comprehensive Metabolic Panel: BUN Date Value Ref Range Status 01/27/2024 7 7 - 21 mg/dL Final Creatinine Date Value Ref Range Status 01/27/2024 0.83 0.58 - 0.96 mg/dL Final Sodium Date Value Ref Range Status 01/27/2024 138 136 - 144 mmol/L Final Potassium Date Value Ref Range Status 01/27/2024 3.7 3.7 - 5.1 mmol/L Final CO2 Date Value Ref Range Status 01/27/2024 25 22 - 30 mmol/L Final Albumin Date Value Ref Range Status 01/27/2024 4.7 3.9 - 4.9 g/dL Final ALT Date Value Ref Range Status 01/27/2024 22 7 - 38 U/L Final AST Date Value Ref Range Status 01/27/2024 22 13 - 35 U/L Final Gamma-Glutamyltransferase (GGT), Serum: No results found for: GGT Vitamin B12: No components found for: [id number] Vitamin D, Total: No results found for: VITD Thyroid Stimulating Hormone (TSH): TSH Date Value Ref Range Status 01/27/2024 2.740 0.270 - 4.200 mIU/L Final Comment: If the patient is , TSH reference range varies by gestational period: First Trimester (weeks 9-12): 0.180-2.990 mIU/L Second Trimester: 0.110-3.980 mIU/L Third Trimester: 0.480-4.710 mIU/L Nils Michael et al. A Practical Approach for the Verifications and Determination of Site- and Trimester-Specific Reference Intervals for Thyroid Function tests in . Thyroid, 2019:29:3:412-420. Mahad Sharif, et al. 2017 Guidelines of the [place] Thyroid Association for the Diagnosis and Management of Thyroid Disease during and the . Thyroid, 2017:27:3:315-389. Hemoglobin A1C: No results found for: HGBA1C Lipid Panel: No results found for: CHOL, TRIG, HDL, LDL MENTAL STATUS EXAM: Appearance: Well dressed, well groomed Behavior: Behaves appropriately during the encounter Social relatedness: Euthymic Speech/Language: The patient demonstrates appropriate tone, prosody, edith, phonetics, and syntax Mood: euthymic Affect: Full and appropriate to topic Orientation: Person, Place, Time and Situation Associations: Intact and linear Hallucinations: None Delusions: None Suicidal Ideation: No suicidal ideation, intent or plan. Homicidal Ideation: No homicidal ideation, intent or plan. Insight: Appropriate Judgment: Appropriate DATA REVIEWED: Psychiatric scales, Electronic medical record, lab results DIAGNOSIS: Generalized anxiety disorder (primary encounter diagnosis) 25 weeks gestation of ([facility]) GAF: -80-71 If symptoms are present, they are transient and expectable reactions to psychosocial stressors TREATMENT PLAN: 1. 1. Generalized anxiety disorder (F41.1) Currently managed without medication; symptoms are tolerable and steady. Patient is attending bi-weekly talk therapy sessions. Discussed potential use of Effexor for anxiety management if needed, noting its safety during and . - Continue bi-weekly talk therapy sessions. - Scheduled follow-up on December 24 at 2:30 PM to monitor for any changes in anxiety levels after delivery. - Educated patient on the safety of Effexor during , with minimal transfer into breast milk and rare side effects in infants. - Advised patient to monitor for any significant changes in anxiety symptoms and to reach out if medication initiation is needed before delivery. 2. 25 weeks gestation of ([facility]) (Z3A.25) Patient is in the second trimester, experiencing improved energy levels and dietary intake. Currently managing without Lamictal, Pristiq, or Effexor. Discussed potential use of Lamictal for depression management if needed, noting its safety during and . - Continue care and follow-up with OB team. - Scheduled follow-up on December 24 at 2:30 PM to monitor for any changes in mood or anxiety levels after delivery. - Educated patient on the safety of Lamictal during , with minimal transfer into breast milk and rare side effects in infants. - Advised patient to monitor for any significant changes in mood or anxiety symptoms and to reach out if medication initiation is needed before delivery. MEDICATION CHANGES: No medication currently. Follow Up: December 24 at 2:30 pm I spent a total of 30 minutes on the date of the service which included preparing to see the patient, [id number] patient care, completing clinical documentation, obtaining and/or reviewing separately obtained history, counseling and educating the patient/family/caregiver, and independently interpreting results (not separately reported). ADD ON PSYCHOTHERAPY CODE : No SIGNATURE: Dyan Corey APRN.CNP PATIENT NAME: Herminia Pinon [facility] DATE: September 07, 2024 TIME: 5:53 PM documented in this encounter [facility] 09-01-2024 Note Addended by: EMILEE ROSE on: 09/01/2024 04:37 PM Modules accepted: Orders [facility] 09-01-2024 Miscellaneous Notes Addended by: EMILEE ROSE on: 09/01/2024 04:37 PM Modules accepted: Orders YANNI-S: Herminia Gottlieb is a 29 year old female who presents at 24w6d with TIO:12/16/2024, by Last Menstrual Period for a routine visit. Denies headache, visual changes, chest pain, shortness of breath, vaginal bleeding, leakage of fluid, or dysuria. Feeling well, no complaints. O: See flow sheet Gen: No apparent distress Abd: Gravid, nontender ASSESSMENT/PLAN: 1. Encounter for supervision of normal first in second trimester -Continue PNV and ASA -1hr GCT, CBC, and RPR next visit 2. 24 weeks gestation of 3. Obesity in -Pregravid BMI 35. -Growth US every 4 weeks starting 32 weeks. -NSTs weekly starting at 36 weeks 4. Anxiety and depression -Continue management with Dyan Corey CNP -Continue Lamictal and Pristiqe 5. Nausea and vomiting during -Vitamin B6 and zofran helpful for N/V Takes Zofran every 6 hours PTL precautions reviewed and when to call RTO in 4 weeks Emilee Rose APRN.CNM documented in this encounter [facility] 09-01-2024 Progress note Formatting of t his note might be different from the original. YANNI-S: Herminia Gottlieb is a 29 year old female who presents at 24w6d with TIO:12/16/2024, by Last Menstrual Period for a routine visit. Denies headache, visual changes, chest pain, shortness of breath, vaginal bleeding, leakage of fluid, or dysuria. Feeling well, no complaints. O: See flow sheet Gen: No apparent distress Abd: Gravid, nontender ASSESSMENT/PLAN: 1. Encounter for supervision of normal first in second trimester -Continue PNV and ASA -1hr GCT, CBC, and RPR next visit 2. 24 weeks gestation of 3. Obesity in -Pregravid BMI 35. -Growth US every 4 weeks starting 32 weeks. -NSTs weekly starting at 36 weeks 4. Anxiety and depression -Continue management with Dyan Corey CNP -Continue Lamictal and Pristiqe 5. Nausea and vomiting during -Vitamin B6 and zofran helpful for N/V Takes Zofran every 6 hours PTL precautions reviewed and when to call RTO in 4 weeks Emilee Rose APRN.CNM [facility] 09-01-[address] [facility] MA - 09/01/2024 4:14 PM EDT SEQUENTIAL SCREENINGS The [facility] offers sequential screenings for women who are interested in screenings for chromosomal abnormalities and certain defects during a . The sequential screen combines ultrasound and blood tests to determine the risk of chromosomal abnormalities, including Down's Syndrome (Trisomy 21) and Trisomy 18, as well as open neural tube defects including spina bifida. Ultrasound examination is performed between 11 weeks and 13 weeks gestational age. Blood tests are drawn after the ultrasound and again later in the between 15 and 21 weeks gestational age. Please let your physician know if you are interested in this testing. It will require an appointment with our land survey technician. This is not an ultrasound performed by a physician in our office during a routine visit. SIGNS AND SYMPTOMS OF LABOR 1. Contractions every 10 minutes or more often 2. Clear, pink, or brownish fluid (water) leaking from vagina 3. Feeling that baby is pushing down, pressure 4. Low, dull backache 5. Cramps that feel like a period 6. Cramps with or without diarrhea If you notice any of the above symptoms, contact our office at [phone] and ask to speak with a nurse. After hours, you can call doctors registry at [phone] OR call [facility] at [phone] and ask to have the doctor senior market intelligence consultant paged. If you consider this an emergency, dial 9-1-4 or go to your nearest emergency department. NEED HELP? Are you dealing with a violent or abusive relationship? Are you a victim of rape or sexual assult? Call [facility] ([place]) 24 hour Crisis Hotline: 111.940.5568 or 717-167-8753. MANUAL Your Guide to a Healthy manual is now on-line. Visit [email or web address] to download your free copy documented in this encounter [facility] 08-12-2024 Telephone encounter Note Last OV 08/04/24. Please address in RR absence. Requested Prescriptions Pending Prescriptions Disp Refills ondansetron (ZOFRAN) 8 mg tablet 30 tablet 1 Sig: Take 1 tablet by mouth every 8 hours as needed for nausea/vomiting. Lisa Pedro RN [facility] 08-12-2024 Miscellaneous Notes Last OV 08/04/24. Please address in RR absence. Requested Prescriptions Pending Prescriptions Disp Refills ondansetron (ZOFRAN) 8 mg tablet 30 tablet 1 Sig: Take 1 tablet by mouth every 8 hours as needed for nausea/vomiting. Lisa Pedro, PIA documented in this encounter [facility] 08-05-2024 Progress note Formatting of t his note might be different from the original. Anatomy ultrasound reviewed. No abnormalities identified. Follow up as clinically indicated. Please place copy in ob chart. Gail Moreno MD [facility] Work Phone: 08-05-2024 Miscellaneous Notes Anatomy ultrasound reviewed. No abnormalities identified. Follow up as clinically indicated. Please place copy in ob chart. Gail Moreno MD documented in this encounter [facility] 08-04-2024 Miscellaneous Notes EH - S: Jennifer is a 29 year old female who presents at 20w6d for a routine visit. Feeling movement. Denies headache, visual changes, chest pain, shortness of breath, vaginal bleeding, leakage of fluid, or dysuria. O: See flow sheet Gen: No apparent distress Abd: Gravid, nontender ASSESSMENT/PLAN: 1. Supervision of high risk in second trimester ([facility]) - ICD9: V23.9, ICD10: O09.92 (primary diagnosis) - Continue PNV - Discussed management for constipation 2. 20 weeks gestation of ([facility]) - ICD9: V22.2, ICD10: Z3A.20 - Anatomy today, report pending 3. Obesity in ([facility]) - ICD9: 649.10, ICD10: O99.210 -Pre BMI 35 - Plan for 32 week growth q 4 weeks. - Weekly NSTs at 36 weeks. 4. History of suicide attempt - ICD9: V11.8, ICD10: Z91.51 - Reports mood has been stable at this time - To update throughout 5. Nausea and vomiting during ([facility]) - ICD9: 643.90, ICD10: O21.9 - Still experiencing - Takes Zofran every 6 hours - Encouraged to take 25 mg of Vitamin B6 TID, 1/2 a Unisom tablet at night - Watch weight, has lost 7 lbs PTL precautions reviewed. RTO in 4 weeks or sooner as needed. Vidal Willis APRN.DANICA documented in this encounter [facility] 08-04-2024 Progress note Formatting of t his note might be different from the original. EH - S: Jennifer is a 29 year old female who presents at 20w6d for a routine visit. Feeling movement. Denies headache, visual changes, chest pain, shortness of breath, vaginal bleeding, leakage of fluid, or dysuria. O: See flow sheet Gen: No apparent distress Abd: Gravid, nontender ASSESSMENT/PLAN: 1. Supervision of high risk in second trimester ([facility]) - ICD9: V23.9, ICD10: O09.92 (primary diagnosis) - Continue PNV - Discussed management for constipation 2. 20 weeks gestation of ([facility]) - ICD9: V22.2, ICD10: Z3A.20 - Anatomy today, report pending 3. Obesity in ([facility]) - ICD9: 649.10, ICD10: O99.210 -Pre BMI 35 - Plan for 32 week growth q 4 weeks. - Weekly NSTs at 36 weeks. 4. History of suicide attempt - ICD9: V11.8, ICD10: Z91.51 - Reports mood has been stable at this time - To update throughout 5. Nausea and vomiting during ([facility] [facility] - ICD9: 643.90, ICD10: O21.9 - Still experiencing - Takes Zofran every 6 hours - Encouraged to take 25 mg of Vitamin B6 TID, 1/2 a Unisom tablet at night - Watch weight, has lost 7 lbs PTL precautions reviewed. RTO in 4 weeks or sooner as needed. Vidal Willis APRN.PATTERN MARKING SUPERVISOR [facility] 08-04-2024 Instructions Minnie Morris MA - 08/04/2024 3:52 PM EDT SEQUENTIAL SCREENINGS The [facility] offers sequential screenings for women who are interested in screenings for chromosomal abnormalities and certain defects during a . The sequential screen combines ultrasound and blood tests to determine the risk of chromosomal abnormalities, including Down's Syndrome (Trisomy 21) and Trisomy 18, as well as open neural tube defects including spina bifida. Ultrasound examination is performed between 11 weeks and 13 weeks gestational age. Blood tests are drawn after the ultrasound and again later in the between 15 and 21 weeks gestational age. Please let your physician know if you are interested in this testing. It will require an appointment with our land survey technician. This is not an ultrasound performed by a physician in our office during a routine visit. SIGNS AND SYMPTOMS OF LABOR 1. Contractions every 10 minutes or more often 2. Clear, pink, or brownish fluid (water) leaking from vagina 3. Feeling that baby is pushing down, pressure 4. Low, dull backache 5. Cramps that feel like a period 6. Cramps with or without diarrhea If you notice any of the above symptoms, contact our office at [phone] and ask to speak with a nurse. After hours, you can call doctors registry at [phone] OR call [facility] at [phone] and ask to have the doctor senior market intelligence consultant paged. If you consider this an emergency, dial 2-3-9 or go to your nearest emergency department. NEED HELP? Are you dealing with a violent or abusive relationship? Are you a victim of rape or sexual assult? Call [facility] ([place]) 24 hour Crisis Hotline: 879.410.1114 or 090-924-1180. MANUAL Your Guide to a Healthy manual is now on-line. Visit [email or web address] to download your free copy documented in this encounter [facility] 08-03-2024 Instructions Dyan Corey, SECURITY OPERATIONS CENTER ANALYST.PATTERN MARKING SUPERVISOR - 08/03/2024 7:25 PM EDT TREATMENT PLAN: At this time patient is okay to monitor symptoms of anxiety and depression without medications due to struggles with tolerating both the Lamictal and Pristiq. If Jennifer starts experiencing depressive symptoms then she is in agreement with restarting Lamictal from the lowest dose. If Jennifer starts experiencing more anxiety symptoms then she is in agreement during to start venlafaxine 25 mg and gradually increase dose as tolerated. Jennifer is aware that this provider will be sharing this treatment plan with her PCP and sky line yarder. Also discussed informing of the treatment plan and symptoms he should monitor. Continue individual psychotherapy. Okay to engage in EMDR at a later point if you don't think trauma is impacting you in the present. Follow up on August 25 at 4:30 pm. For those experiencing a suicidal crisis: --call the National Suicide Prevention Lifeline at 360 (499-542-0867) --text the Crisis Text Line (text HOME to 779588) --call 911 and let them know you are having a mental health crisis or go to your nearest Emergency Room for stabilization. --You can also call Mobile Crisis at 525-732-8028. -- You may call the department appointment line at [phone] to schedule your appointment. -- Please call my nurse at [phone] or send me a message in Consert with any questions or concerns between appointments. documented in this encounter [facility] 08-03-2024 Note HNO ID: [id number] Author: DYAN COREY APRN.DANICA Service: ? Author Type: Nurse Practitioner Type: Progress Notes Filed: 08/03/2024 19:32 Note Text: FOLLOW UP - PSYCHIATRIC PROGRESS NOTE PATIENT: Herminia Gottlieb DATE: August 03, 2024 Visit Type: Virtual Visit utilizing two-way audio and video for at least a portion of the visit. Consent for virtual visit obtained verbally. Confidentiality limitations with virtual visits reviewed with the patient and guardian, if present, who have accepted the risk verbally prior to proceeding with encounter. I have communicated my name and active licensure. The patient's identity and physical location were verified at the time of this visit. Either the patient or their legal manufacturers service representative has been informed of the risks and benefits of -- and alternatives to -- treatment through a remote evaluation and consents to proceed with the evaluation remotely. All information is from Patient report except when noted. This evaluation is NOT intended for forensic, disability or child custody purposes. CC: Presenting today for follow up regarding psychiatric medication management. HPI: Treatment Plan from Last Visit on 06/01/2024: TREATMENT PLAN: Change Lamictal 100 mg to orally disintegrating form due to severe nausea and vomiting related to her . Continue Pristiq at the same dose of 100 mg to address anxiety symptoms. Work on taking it consistently to avoid interdose withdrawal symptoms. Continue individual psychotherapy. Follow up in 2 months. Today Jennifer shares that I am doing okay. She has not been able to tolerate the Pristiq during the . She reports that she stopped taking Lamictal also weeks ago due to nausea and vomiting. She is 20 weeks now but her nausea continues. Her nausea has improved compared to first trimester. She is trying to increase her intake. She shares that she needs to work on improving her hydration. She sleeps in the recliner as that helps with her nausea and reflex. No significant change in sleep since stopping medications. Since she is not able to tolerate either Pristiq or Lamictal at this time, we discussed the plan to monitor her symptoms and restart medications if needed during or in the post period. Also encouraged patient to notify her of the plan so that he can contact her providers if he is concerned. Jennifer shared that her therapist has discussed that she would benefit from engaging in EMDR. Patient is unsure if she wants to pursue that at this time even if it is safe for . Does not have any specific trauma triggers that are impacting her during . Interval Progress: Slightly improved PATIENT DATA: Generalized Anxiety Disorder Scale (SUKHWINDER-7) 03/28/2024 05/31/2024 07/28/2024 SUKHWINDER - 7 SCORES Score 5 4 3 (0-4) minimal anxiety, (5-9) mild anxiety, (10-14) moderate anxiety, (15-21) severe anxiety Patient Health Questionnaire (PHQ-9) 05/10/2024 05/31/2024 07/28/2024 PHQ-9 Score 5 7 6 (0-4) minimal depression, (5-9) mild depression, (10-14) moderate depression, (15-19) moderately severe depression, (20-27) severe depression PAST MEDICAL HISTORY Diagnosis Date Appendicitis 01/2019 Cold sores Depression Previous suicide attempt Exercise-induced asthma PMH - PAST MEDICAL HISTORY OF 11/2004 normal color vision Varicella age 2 years PAST SURGICAL HISTORY Procedure Laterality Date EXTRACTION, ERUPTED TOOTH OR EXPOSED ROOT (ELEVATION AND/OR FORCEPS REMOVAL) LAPAROSCOPIC APPENDECTOMY 01/2019 ALLERGIES Allergen Reactions Seasonal Allergies Other: See Comments cough, sneeze,watery eyes Current Outpatient Medications on File Prior to Visit Medication Sig ondansetron (ZOFRAN) 8 mg tablet Take 1 tablet by mouth every 8 hours as needed for nausea/vomiting. lamoTRIgine orally disintegrating (LAMICTAL ODT) 100 mg disintegrating tablet Take 1 tablet by mouth once daily. aspirin, enteric coated (ECOTRIN LOW STRENGTH) 81 mg EC tablet Take 1 tablet by mouth once daily. (Patient not taking: Reported on 06/09/2024) desvenlafaxine ER (PRISTIQ) 100 mg 24 hr tablet Take 1 tablet by mouth once daily. PNV no.95/ferrous fum/folic ac ( ORAL) Take 1 tablet by mouth once daily. pyridoxine HCl, vitamin B6, (VITAMIN B-6 ORAL) Take 25 mg by mouth once daily. promethazine (PHENERGAN) 12.5 mg suppository 1 Suppository by RECTAL route every 6 hours as needed for nausea/vomiting. valACYclovir (VALTREX) 1 gram Take 1 tablet by mouth twice daily. For cold sore outbreak LORATADINE ORAL Take by mouth. No current facility-administered medications on file prior to visit. ROS: See HPI PFSH: See HPI VITAL SIGNS: There were no vitals filed for this visit. Last 3 Encounter BP Readings: Date: BP: 07/07/2024 118/64 06/22/2024 118/70 06/16/2024 110/66 MENTAL STATUS EXAMINATION: Appearance: Well dresse (more content not included)... [facility] 08-03-2024 History of Presen t illness Narrative Images from the original note were not included. FOLLOW UP - PSYCHIATRIC PROGRESS NOTE PATIENT: Herminia Pinon [facility] DATE: August 03, 2024 Visit Type: Virtual Visit utilizing two-way audio and video for at least a portion of the visit. Consent for virtual visit obtained verbally. Confidentiality limitations with virtual visits reviewed with the patient and guardian, if present, who have accepted the risk verbally prior to proceeding with encounter. I have communicated my name and active licensure. The patient's identity and physical location were verified at the time of this visit. Either the patient or their legal manufacturers service representative has been informed of the risks and benefits of -- and alternatives to -- treatment through a remote evaluation and consents to proceed with the evaluation remotely. All information is from Patient report except when noted. This evaluation is NOT intended for forensic, disability or child custody purposes. CC: Presenting today for follow up regarding psychiatric medication management. HPI: Treatment Plan from Last Visit on 06/01/2024: TREATMENT PLAN: Change Lamictal 100 mg to orally disintegrating form due to severe nausea and vomiting related to her . Continue Pristiq at the same dose of 100 mg to address anxiety symptoms. Work on taking it consistently to avoid interdose withdrawal symptoms. Continue individual psychotherapy. Follow up in 2 months. Today Jennifer shares that I am doing okay. She has not been able to tolerate the Pristiq during the . She reports that she stopped taking Lamictal also weeks ago due to nausea and vomiting. She is 20 weeks now but her nausea continues. Her nausea has improved compared to first trimester. She is trying to increase her intake. She shares that she needs to work on improving her hydration. She sleeps in the recliner as that helps with her nausea and reflex. No significant change in sleep since stopping medications. Since she is not able to tolerate either Pristiq or Lamictal at this time, we discussed the plan to monitor her symptoms and restart medications if needed during or in the post period. Also encouraged patient to notify her of the plan so that he can contact her providers if he is concerned. Jennifer shared that her therapist has discussed that she would benefit from engaging in EMDR. Patient is unsure if she wants to pursue that at this time even if it is safe for . Does not have any specific trauma triggers that are impacting her during . Interval Progress: Slightly improved PATIENT DATA: Generalized Anxiety Disorder Scale (SUKHWINDER-7) 03/28/2024 05/31/2024 07/28/2024 SUKHWINDER - 7 SCORES Score 5 4 3 (0-4) minimal anxiety, (5-9) mild anxiety, (10-14) moderate anxiety, (15-21) severe anxiety Patient Health Questionnaire (PHQ-9) 05/10/2024 05/31/2024 07/28/2024 PHQ-9 Score 5 7 6 (0-4) minimal depression, (5-9) mild depression, (10-14) moderate depression, (15-19) moderately severe depression, (20-27) severe depression PAST MEDICAL HISTORY Diagnosis Date Appendicitis 01/2019 Cold sores Depression Previous suicide attempt Exercise-induced asthma PMH - PAST MEDICAL HISTORY OF 11/2004 normal color vision Varicella age 2 years PAST SURGICAL HISTORY Procedure Laterality Date EXTRACTION, ERUPTED TOOTH OR EXPOSED ROOT (ELEVATION AND/OR FORCEPS REMOVAL) LAPAROSCOPIC APPENDECTOMY 01/2019 ALLERGIES Allergen Reactions Seasonal Allergies Other: See Comments cough, sneeze,watery eyes Current Outpatient Medications on File Prior to Visit Medication Sig ondansetron (ZOFRAN) 8 mg tablet Take 1 tablet by mouth every 8 hours as needed for nausea/vomiting. lamoTRIgine orally disintegrating (LAMICTAL ODT) 100 mg disintegrating tablet Take 1 tablet by mouth once daily. aspirin, enteric coated (ECOTRIN LOW STRENGTH) 81 mg EC tablet Take 1 tablet by mouth once daily. (Patient not taking: Reported on 06/09/2024) desvenlafaxine ER (PRISTIQ) 100 mg 24 hr tablet Take 1 tablet by mouth once daily. PNV no.95/ferrous fum/folic ac ( ORAL) Take 1 tablet by mouth once daily. pyridoxine HCl, vitamin B6, (VITAMIN B-6 ORAL) Take 25 mg by mouth once daily. promethazine (PHENERGAN) 12.5 mg suppository 1 Suppository by RECTAL route every 6 hours as needed for nausea/vomiting. valACYclovir (VALTREX) 1 gram Take 1 tablet by mouth twice daily. For cold sore outbreak LORATADINE ORAL Take by mouth. No current facility-administered medications on file prior to visit. ROS: See HPI PFSH: See HPI VITAL SIGNS: There were no vitals filed for this visit. Last 3 Encounter BP Readings: Date: BP: 07/07/2024 118/64 06/22/2024 118/70 06/16/2024 110/66 MENTAL STATUS EXAMINATION: Appearance: Well dressed, well groomed Behavior: Behaves appropriately during the encounter Social relatedness: Euthymic Speech/Language: The patient demonstrates appropriate tone, prosody, edith, phonetics, and syntax Mood: Concerned Affect: Full and appropriate to topic Orientation: Person, Place, Time and Situation Associations: Intact and linear Hallucinations: None Delusions: None Suicidal Ideation: No suicidal ideation, intent or plan. Homicidal Ideation: No homicidal ideation, intent or plan. Insight: Appropriate Judgment: Appropriate DATA REVIEWED: Psychiatric scales, Electronic medical record, Labs DIAGNOSIS: Mood disorder (primary encounter diagnosis) Generalized anxiety disorder Encounter for long-term (current) use of medications 20 weeks gestation of (hcc) GAF: -70-61 Some mild symptoms or some difficulty in social, occupational, or school functioning, but generally functioning pretty well. TREATMENT PLAN: At this time patient is okay to monitor symptoms of anxiety and depression without medications due to struggles with tolerating both the Lamictal and Pristiq. If Jennifer starts experiencing depressive symptoms then she is in agreement with restarting Lamictal from the lowest dose. If Jennifer starts experiencing more anxiety symptoms then she is in agreement during to start venlafaxine 25 mg and gradually increase dose as tolerated. Jennifer is aware that this provider will be sharing this treatment plan with her PCP and sky line yarder. Also discussed informing of the treatment plan and symptoms he should monitor. Continue individual psychotherapy. Okay to engage in EMDR at a later point if you don't think trauma is impacting you in the present. Follow up on August 25 at 4:30 pm. MEDICATION CHANGES: See above. The risks versus benefits of utilizing medications during preganancy was reviewed in detail with the patient. Follow Up: See Treatment Plan Medical Decision Making: Problems: Moderate: 2+ stable chronic illnesses Data: Unique source(s) for external note(s) reviewed: 3+ Unique test result(s) reviewed: 3+ Discussed management or test w/ external physician/QHCP/source Risk: Moderate: Moderate risk from testing/treatment Medical Decision Making Level: 4 - Moderate ADD ON PSYCHOTHERAPY CODE : No SIGNATURE: Dyan Corey APRN.CNP PATIENT NAME: Herminia Pinon [facility] DATE: August 03, 2024 TIME: 4:35 PM documented in this encounter [facility] 07-12-2024 Telephone encounter Note Last OV 07/07/24. Requested Prescriptions Pending Prescriptions Disp Refills ondansetron (ZOFRAN) 8 mg tablet 30 tablet 1 Sig: Take 1 tablet by mouth every 8 hours as needed for nausea/vomiting. Lisa Pedro RN [facility] 07-12-2024 Miscellaneous Notes Last OV 07/07/24. Requested Prescriptions Pending Prescriptions Disp Refills ondansetron (ZOFRAN) 8 mg tablet 30 tablet 1 Sig: Take 1 tablet by mouth every 8 hours as needed for nausea/vomiting. Lisa Pedro RN documented in this encounter [facility] 07-07-2024 Progress note Formatting of t his note might be different from the original. DM-Pt doing well. Denies vaginal Bleeding, Leaking fluid, or regular Cramping. Trying to take Medications but having hard time due to nausea. But starting to feel better. Taking pepcid and B6 at night. Physical Exam: Gen: female in no apparent distress Abd: soft, Gravid. Non tender to palpation. See flow sheet @ 16.6 Assessment & Plan Obesity in Reviewed ASA- has not started - will try now. Encounter for supervision of normal first in second trimester Anxiety and depression Nausea and vomiting during Continue pepcid and B6 16 weeks gestation of Anatomy us scheuled Rubella non-immune status, antepartum MMR vaccine PP reviewed Esther Acosta MD [facility] 07-07-2024 Miscellaneous Notes DM-Pt doing well. Denies vaginal Bleeding, Leaking fluid, or regular Cramping. Trying to take Medications but having hard time due to nausea. But starting to feel better. Taking pepcid and B6 at night. Physical Exam: Gen: female in no apparent distress Abd: soft, Gravid. Non tender to palpation. See flow sheet @ 16.6 Assessment & Plan Obesity in Reviewed ASA- has not started - will try now. Encounter for supervision of normal first in second trimester Anxiety and depression Nausea and vomiting during Continue pepcid and B6 16 weeks gestation of Anatomy us scheuled Rubella non-immune status, antepartum MMR vaccine PP reviewed Esther Acosta MD documented in this encounter [facility] 07-07-2024 Instructions Mt Baron MA - 07/07/2024 4:02 PM EST SEQUENTIAL SCREENINGS The [facility] offers sequential screenings for women who are interested in screenings for chromosomal abnormalities and certain defects during a . The sequential screen combines ultrasound and blood tests to determine the risk of chromosomal abnormalities, including Down's Syndrome (Trisomy 21) and Trisomy 18, as well as open neural tube defects including spina bifida. Ultrasound examination is performed between 11 weeks and 13 weeks gestational age. Blood tests are drawn after the ultrasound and again later in the between 15 and 21 weeks gestational age. Please let your physician know if you are interested in this testing. It will require an appointment with our land survey technician. This is not an ultrasound performed by a physician in our office during a routine visit. SIGNS AND SYMPTOMS OF LABOR 1. Contractions every 10 minutes or more often 2. Clear, pink, or brownish fluid (water) leaking from vagina 3. Feeling that baby is pushing down, pressure 4. Low, dull backache 5. Cramps that feel like a period 6. Cramps with or without diarrhea If you notice any of the above symptoms, contact our office at [phone] and ask to speak with a nurse. After hours, you can call doctors registry at [phone] OR call [facility] at [phone] and ask to have the doctor senior market intelligence consultant paged. If you consider this an emergency, dial 9-6-8 or go to your nearest emergency department. NEED HELP? Are you dealing with a violent or abusive relationship? Are you a victim of rape or sexual assult? Call [facility] ([place]) 24 hour Crisis Hotline: 474.117.2225 or 032-760-9315. MANUAL Your Guide to a Healthy manual is now on-line. Visit [email or web address] to download your free copy documented in this encounter [facility] 06-24-2024 Telephone encounter Note [employer] paperwork was completed and faxed back to employer. Mt Baron MA [facility] 06-24-2024 Miscellaneous Notes FMLA paperwork was completed and faxed back to employer. Mt Baron MA Received [employer] paperwork. Completed and on providers desk for signature. Mt Baron MA documented in this encounter [facility] 06-23-2024 Telephone encounter Note Last OV 06/22/24. Requested Prescriptions Pending Prescriptions Disp Refills ondansetron (ZOFRAN) 8 mg tablet 30 tablet 1 Sig: Take 1 tablet by mouth every 8 hours as needed for nausea/vomiting. Lisa Pedro RN [facility] 06-23-2024 Miscellaneous Notes Last OV 06/22/24. Requested Prescriptions Pending Prescriptions Disp Refills ondansetron (ZOFRAN) 8 mg tablet 30 tablet 1 Sig: Take 1 tablet by mouth every 8 hours as needed for nausea/vomiting. Lisa Pedro RN documented in this encounter [facility] 06-22-2024 Progress note Formatting of t his note might be different from the original. S: Herminia Gottlieb is a 28 year old female who presents at 12/16/2024, by Last Menstrual Period for a routine visit. Denies headache, visual changes, chest pain, shortness of breath, vaginal bleeding, leakage of fluid, or dysuria. Feeling well, no complaints. O: See flow sheet Gen: No apparent distress Abd: Gravid, nontender Nausea and vomiting improving. Zofran, unisom and will start pepcid. Tolerates most liquids ASSESSMENT/PLAN: 1. 14 weeks gestation of - ICD9: V22.2, ICD10: Z3A.14 (primary diagnosis) 2. Supervision of high risk in first trimester - ICD9: V23.9, ICD10: O09.91 3. Obesity in - ICD9: 649.10, ICD10: O99.210 Q 4 week Growth Weekly nsts at Denisa Bentley MD [facility] 06-22-2024 Miscellaneous Notes S: Herminia Gottlieb is a 28 year old female who presents at 12/16/2024, by Last Menstrual Period for a routine visit. Denies headache, visual changes, chest pain, shortness of breath, vaginal bleeding, leakage of fluid, or dysuria. Feeling well, no complaints. O: See flow sheet Gen: No apparent distress Abd: Gravid, nontender Nausea and vomiting improving. Zofran, unisom and will start pepcid. Tolerates most liquids ASSESSMENT/PLAN: 1. 14 weeks gestation of - ICD9: V22.2, ICD10: Z3A.14 (primary diagnosis) 2. Supervision of high risk in first trimester - ICD9: V23.9, ICD10: O09.91 3. Obesity in - ICD9: 649.10, ICD10: O99.210 Q 4 week Growth Weekly nsts at Denisa Bentley MD documented in this encounter [facility] 06-22-2024 Instructions Ysaebl Zamora MA - 06/22/2024 2:31 PM EST SEQUENTIAL SCREENINGS The [facility] offers sequential screenings for women who are interested in screenings for chromosomal abnormalities and certain defects during a . The sequential screen combines ultrasound and blood tests to determine the risk of chromosomal abnormalities, including Down's Syndrome (Trisomy 21) and Trisomy 18, as well as open neural tube defects including spina bifida. Ultrasound examination is performed between 11 weeks and 13 weeks gestational age. Blood tests are drawn after the ultrasound and again later in the between 15 and 21 weeks gestational age. Please let your physician know if you are interested in this testing. It will require an appointment with our land survey technician. This is not an ultrasound performed by a physician in our office during a routine visit. SIGNS AND SYMPTOMS OF LABOR 1. Contractions every 10 minutes or more often 2. Clear, pink, or brownish fluid (water) leaking from vagina 3. Feeling that baby is pushing down, pressure 4. Low, dull backache 5. Cramps that feel like a period 6. Cramps with or without diarrhea If you notice any of the above symptoms, contact our office at [phone] and ask to speak with a nurse. After hours, you can call doctors registry at [phone] OR call [facility] at [phone] and ask to have the doctor senior market intelligence consultant paged. If you consider this an emergency, dial 9-3-5 or go to your nearest emergency department. NEED HELP? Are you dealing with a violent or abusive relationship? Are you a victim of rape or sexual assult? Call [facility] ([place]) 24 hour Crisis Hotline: 441.475.3494 or 216-979-6993. MANUAL Your Guide to a Healthy manual is now on-line. Visit [email or web address] to download your free copy documented in this encounter [facility] 06-18-2024 Telephone encounter Note noted [facility] Work Phone: 06-18-2024 Miscellaneous Notes noted 14w1d Pt calling stating she started vomiting yesterday and tried eating; however, vomited a total of 5 times. Has been taking Zofran every 8 hours as directed for nausea. States she also placed Phenergan suppository at 4:15pm and 10:15pm and still vomited. Tried zofran again once phenergan wore off and vomited again.Continued to vomit this AM and has vomited a total of 2 times so far this morning. Having difficult time keeping liquids down. Pt states at the beginning of May she went to ER for vomiting and was given Reglan IV and it didn't help was given Rx zofran tablets and has been doing since as directed Does not feel as bad as she did when she went to ER in May; however, cannot keep anything down. Advised Pt, despite the fact that she does not feel as bad as she did last time she went to ER, if she is unable to keep any food/liquids down with fact that she has also been taking the antinausea medications for >24 hours then she needs to return to ER for IV hydration. F/U ER appt made for Friday (advised Pt to be seen on Friday, but Pt was not available at time of appt spot). Advised Pt that she needs to discuss with OB provider whether or not they feel it is appropriate for a zofran pump. Pt then asked if she should just not go to ER and keep OB appt if she can just get a zofran pump. Advised her that this RN is not a Dr, and cannot guarantee that they will prescribe the pump and if they do, it will not be an immediate thing as it will take some time to get things situated and ordered. Pt voiced understanding and did state she would go to [facility] ER. Lisa Pedro RN documented in this encounter [facility] 06-18-2024 Telephone encounter Note 14w1d Pt calling stating she started vomiting yesterday and tried eating; however, vomited a total of 5 times. Has been taking Zofran every 8 hours as directed for nausea. States she also placed Phenergan suppository at 4:15pm and 10:15pm and still vomited. Tried zofran again once phenergan wore off and vomited again.Continued to vomit this AM and has vomited a total of 2 times so far this morning. Having difficult time keeping liquids down. Pt states at the beginning of May she went to ER for vomiting and was given Reglan IV and it didn't help was given Rx zofran tablets and has been doing since as directed Does not feel as bad as she did when she went to ER in May; however, cannot keep anything down. Advised Pt, despite the fact that she does not feel as bad as she did last time she went to ER, if she is unable to keep any food/liquids down with fact that she has also been taking the antinausea medications for >24 hours then she needs to return to ER for IV hydration. F/U ER appt made for Friday (advised Pt to be seen on Friday, but Pt was not available at time of appt spot). Advised Pt that she needs to discuss with OB provider whether or not they feel it is appropriate for a zofran pump. Pt then asked if she should just not go to ER and keep OB appt if she can just get a zofran pump. Advised her that this RN is not a Dr, and cannot guarantee that they will prescribe the pump and if they do, it will not be an immediate thing as it will take some time to get things situated and ordered. Pt voiced understanding and did state she would go to [facility] ER. Lisa Pedro, RN [facility] 06-16-2024 Instructions Candis Baez APRN.CNP - 06/16/2024 5:56 PM EST Strep Negative Continue supportive care at home May use over the counter cold and cough medications as needed for symptoms management Stay well hydrated Any worsening symptoms reach out to the office. May use Netipot to help with sinus congestion or saline nasal spray Follow up if no improvement. documented in this encounter [facility] 06-16-2024 History of Presen t illness Narrative This is a 28 year old female who presents today with: Patient presents with: Acute Visit: cold HISTORY OF PRESENT ILLNESS: Herminia Gottlieb is a 28 year old female. Patient presents with: Acute Visit: cold Patient of Светлана Srinivasan CNP here in the office URI symptoms. Started with sore throat, cough, fatigue, and chills. Productive cough at times, yellow/clear mucus. Ongoing sinus congestion. Started Last Friday. Has been taking Robitussin and cough drops as needed. No SOB or fever. Symptoms gradually improving. Currently 13 weeks . PAST MEDICAL HISTORY: PAST MEDICAL HISTORY Diagnosis Date Appendicitis 01/2019 Cold sores Depression Previous suicide attempt Exercise-induced asthma PMH - PAST MEDICAL HISTORY OF 11/2004 normal color vision Varicella age 2 years PAST SURGICAL HISTORY Procedure Laterality Date EXTRACTION, ERUPTED TOOTH OR EXPOSED ROOT (ELEVATION AND/OR FORCEPS REMOVAL) LAPAROSCOPIC APPENDECTOMY 01/2019 ALLERGIES Seasonal Allergies MEDICATIONS Current Outpatient Medications Medication Sig ondansetron (ZOFRAN) 8 mg tablet Take 1 tablet by mouth every 8 hours as needed for nausea/vomiting. lamoTRIgine orally disintegrating (LAMICTAL ODT) 100 mg disintegrating tablet Take 1 tablet by mouth once daily. aspirin, enteric coated (ECOTRIN LOW STRENGTH) 81 mg EC tablet Take 1 tablet by mouth once daily. (Patient not taking: Reported on 06/09/2024) desvenlafaxine ER (PRISTIQ) 100 mg 24 hr tablet Take 1 tablet by mouth once daily. PNV no.95/ferrous fum/folic ac ( ORAL) Take 1 tablet by mouth once daily. pyridoxine HCl, vitamin B6, (VITAMIN B-6 ORAL) Take 25 mg by mouth once daily. promethazine (PHENERGAN) 12.5 mg suppository 1 Suppository by RECTAL route every 6 hours as needed for nausea/vomiting. valACYclovir (VALTREX) 1 gram Take 1 tablet by mouth twice daily. For cold sore outbreak LORATADINE ORAL Take by mouth. No current facility-administered medications for this visit. FAMILY HISTORY Problem Relation Age of Onset other (mental health) Mother Stroke Father other (Epilepsy) Father Anxiety disorder Sister Depression Sister Asthma Sister Prematurity Sister other (one kidney) Sister Anxiety disorder Brother No Known Problems Maternal Grandmother Stroke Maternal Grandfather Alzheimer's Disease Maternal Grandfather Heart disease Paternal Grandmother Stroke Paternal Grandmother Kidney failure Paternal Grandmother No Known Problems Paternal Grandfather Social History Tobacco Use Smoking status: Never Smokeless tobacco: Never Vaping Use Vaping status: Never Used Substance Use Topics Alcohol use: Not Currently Comment: rare Drug use: Never REVIEW OF SYSTEMS GENERAL: + Fatigue HEENT: + Sore Throat, Sinus Congestion NECK: Negative for lumps, goiter, pain and significant neck swelling RESPIRATORY: + Cough CARDIOVASCULAR: Negative for chest pain, leg swelling, orthopnea, or palpitations GI: No nausea, vomiting, or diarrhea/constipation. No hematochezia/melena. No heartburn or reflux symptoms. : No history of dysuria, frequency or incontinence MUSCULOSKELETAL: Negative for joint pain or swelling. SKIN: Negative for lesions, rash, and itching ENDOCRINE: Negative for cold or heat intolerance, polyuria, polydipsia and goiter NEURO: No history of headaches, syncope, paralysis, seizures or tremors MOOD: Negative for depression, anxiety, or suicidal ideation. EXAM: BP 110/66 Pulse 72 Temp 36.9 C (98.4 F) (Left Tympanic) Resp 16 Wt 89.8 kg (197 lb 15.6 oz) LMP 03/11/2024 SpO2 99% BMI 33.98 kg/m PHYSICAL EXAM: General Appearance: Well appearing, alert, in no acute distress, well-hydrated, well nourished. Skin: Skin color, texture, turgor normal, no suspicious rashes or lesions. Head: Normocephalic, no masses, lesions, tenderness or abnormalities. Eyes: Anicteric sclera. Extraocular movements are intact. Ears: External ears normal, canals clear, Tm's dull. Nose/Sinuses: Positive findings: mucosa erythematous and swollen, Mild frontal and maxillary sinus tenderness. Oropharynx: Positive findings: mild oropharyngeal erythema. Neck: Supple, no adenopathy; thyroid symmetric, normal size, no bruits. Lungs: Lungs clear to auscultation. No wheezing, rhonchi, rales. Heart: RRR without murmur, gallop, or rubs. No ectopy. Extremities: No deformities, edema, skin discoloration, clubbing or cyanosis. Good capillary refill. Peripheral Pulses: Normal, Capillary refill <2secs, strong peripheral pulses, Pulses palpable. Neurologic: Gait normal. Reflexes normal and symmetric. Sensation grossly intact. ASSESSMENT/PLAN: 1. URI, acute - ICD9: 465.9, ICD10: J06.9 (primary diagnosis) - Discussed viral etiology and rationale for treatment. - Group A strep molecular testing negative - Symptomatic treatment with prn analgesia - Supportive care with fluids and rest Follow up if no improvement Discussed treatment plan and patient voices understanding. Patient's questions answered appropriately. Medications and potential side effects were discussed and patient voices understanding. Candis Baez APRN.CNP This note was partially generated using 115 network disks voice recognition system. Note was reviewed for accuracy. There may be minor misspellings or grammar miscues with 115 network [employer] voice recognition. documented in this encounter [facility] 06-16-2024 Note HNO ID: [id number] Author: CANDIS BAEZ APRN.CNP Service: ? Author Type: Nurse Practitioner Type: Progress Notes Filed: 06/16/2024 18:27 Note Text: This is a 28 year old female who presents today with: Patient presents with: Acute Visit: cold HISTORY OF PRESENT ILLNESS: Herminia Gottlieb is a 28 year old female. Patient presents with: Acute Visit: cold Patient of Светлана Srinivasan CNP here in the office URI symptoms. Started with sore throat, cough, fatigue, and chills. Productive cough at times, yellow/clear mucus. Ongoing sinus congestion. Started Last Friday. Has been taking Robitussin and cough drops as needed. No SOB or fever. Symptoms gradually improving. Currently 13 weeks . PAST MEDICAL HISTORY: PAST MEDICAL HISTORY Diagnosis Date Appendicitis 01/2019 Cold sores Depression Previous suicide attempt Exercise-induced asthma PMH - PAST MEDICAL HISTORY OF 11/2004 normal color vision Varicella age 2 years PAST SURGICAL HISTORY Procedure Laterality Date EXTRACTION, ERUPTED TOOTH OR EXPOSED ROOT (ELEVATION AND/OR FORCEPS REMOVAL) LAPAROSCOPIC APPENDECTOMY 01/2019 ALLERGIES Seasonal Allergies MEDICATIONS Current Outpatient Medications Medication Sig ondansetron (ZOFRAN) 8 mg tablet Take 1 tablet by mouth every 8 hours as needed for nausea/vomiting. lamoTRIgine orally disintegrating (LAMICTAL ODT) 100 mg disintegrating tablet Take 1 tablet by mouth once daily. aspirin, enteric coated (ECOTRIN LOW STRENGTH) 81 mg EC tablet Take 1 tablet by mouth once daily. (Patient not taking: Reported on 06/09/2024) desvenlafaxine ER (PRISTIQ) 100 mg 24 hr tablet Take 1 tablet by mouth once daily. PNV no.95/ferrous fum/folic ac ( ORAL) Take 1 tablet by mouth once daily. pyridoxine HCl, vitamin B6, (VITAMIN B-6 ORAL) Take 25 mg by mouth once daily. promethazine (PHENERGAN) 12.5 mg suppository 1 Suppository by RECTAL route every 6 hours as needed for nausea/vomiting. valACYclovir (VALTREX) 1 gram Take 1 tablet by mouth twice daily. For cold sore outbreak LORATADINE ORAL Take by mouth. No current facility-administered medications for this visit. FAMILY HISTORY Problem Relation Age of Onset other (mental health) Mother Stroke Father other (Epilepsy) Father Anxiety disorder Sister Depression Sister Asthma Sister Prematurity Sister other (one kidney) Sister Anxiety disorder Brother No Known Problems Maternal Grandmother Stroke Maternal Grandfather Alzheimer's Disease Maternal Grandfather Heart disease Paternal Grandmother Stroke Paternal Grandmother Kidney failure Paternal Grandmother No Known Problems Paternal Grandfather Social History Tobacco Use Smoking status: Never Smokeless tobacco: Never Vaping Use Vaping status: Never Used Substance Use Topics Alcohol use: Not Currently Comment: rare Drug use: Never REVIEW OF SYSTEMS GENERAL: + Fatigue HEENT: + Sore Throat, Sinus Congestion NECK: Negative for lumps, goiter, pain and significant neck swelling RESPIRATORY: + Cough CARDIOVASCULAR: Negative for chest pain, leg swelling, orthopnea, or palpitations GI: No nausea, vomiting, or diarrhea/constipation. No hematochezia/melena. No heartburn or reflux symptoms. : No history of dysuria, frequency or incontinence MUSCULOSKELETAL: Negative for joint pain or swelling. SKIN: Negative for lesions, rash, and itching ENDOCRINE: Negative for cold or heat intolerance, polyuria, polydipsia and goiter NEURO: No history of headaches, syncope, paralysis, seizures or tremors MOOD: Negative for depression, anxiety, or suicidal ideation. EXAM: BP 110/66 Pulse 72 Temp 36.9 ?C (98.4 ?F) (Left Tympanic) Resp 16 Wt 89.8 kg (197 lb 15.6 oz) LMP 03/11/2024 SpO2 99% BMI 33.98 kg/m? PHYSICAL EXAM: General Appearance: Well appearing, alert, in no acute distress, well-hydrated, well nourished. Skin: Skin color, texture, turgor normal, no suspicious rashes or lesions. Head: Normocephalic, no masses, lesions, tenderness or abnormalities. Eyes: Anicteric sclera. Extraocular movements are intact. Ears: External ears normal, canals clear, Tm's dull. Nose/Sinuses: Positive findings: mucosa erythematous and swollen, Mild frontal and maxillary sinus tenderness. Oropharynx: Positive findings: mild oropharyngeal erythema. Neck: Supple, no adenopathy; thyroid symmetric, normal size, no bruits. Lungs: Lungs clear to auscultation. No wheezing, rhonchi, rales. Heart: RRR without murmur, gallop, or rubs. No ectopy. Extremities: No deformities, edema, skin discoloration, clubbing or cyanosis. Good capillary refill. Peripheral Pulses: Normal, Capillary refill <2secs, strong peripheral pulses, Pulses palpable. Neurologic: Gait normal. Reflexes normal and symmetric. Sensation grossly intact. ASSESSMENT/PLAN: 1. URI, acute - ICD9: 465.9, ICD10: J06.9 (primary diagnosis) - Discussed viral etiology and rationale fo (more content not included)... [facility] 06-16-2024 Telephone encounter Note Appointment scheduled on 07/27/24 @ 4 pm. Mahi Hull LPN [facility] 06-16-2024 Miscellaneous Notes Appointment scheduled on 07/27/24 @ 4 pm. Mahi Hull LPN Pt calls to schedule an appt. Advised pt she would be called back by nurse to schedule. Evelyn Neves LPN documented in this encounter [facility] 06-16-2024 Telephone encounter Note Patient notified and voiced understanding, transferred to PSS to schedule. Ita Hayden RN [facility] 06-16-2024 Miscellaneous Notes Patient notified and voiced understanding, transferred to PSS to schedule. Ita Hayden RN Order signed. Emilee Rose APRN.CNM Images from the original note were not included. Patient called to report that she was advised by the provider to schedule 16 wk US and OB (around 07/07/24). Emilee Rose APRN.CNM 06/10/2024 3:04 PM EST NT US normal. Please update PN record. Please assist in scheduling 16wk and 20wk US with [facility] same day. Emilee Rose APRN.CNM Please submit orders and contact patient to assist with scheduling. documented in this encounter [facility] 06-15-2024 Telephone encounter Note Order signed. Emilee Rose APRN.CNM [facility] 06-15-2024 Telephone encounter Note Images from the original note were not included. Patient called to report that she was advised by the provider to schedule 16 wk US and OB (around 07/07/24). Emilee Rose APRN.CNM 06/10/2024 3:04 PM EST NT US normal. Please update PN record. Please assist in scheduling 16wk and 20wk US with [facility] same day. Emilee Rose APRN.CNM Please submit orders and contact patient to assist with scheduling. [facility] 06-15-2024 Telephone encounter Note Received [facility] paperwork. Completed and on providers desk for signature. Mt Baron MA [facility] 06-15-2024 Telephone encounter Note Pt calls to schedule an appt. Advised pt she would be called back by nurse to schedule. Evelyn eNves LPN [facility] 06-10-2024 Progress note Formatting of t his note might be different from the original. YANNI-S: Herminia Gottlieb is a 28 year old female who presents at 12w6d with TIO:12/16/2024, by Last Menstrual Period for a routine visit. Denies headache, visual changes, chest pain, shortness of breath, vaginal bleeding, leakage of fluid, or dysuria. Feeling well, no complaints. First trimester US today. O: See flow sheet Gen: No apparent distress Abd: Gravid, nontender ASSESSMENT/PLAN: 1. Encounter for supervision of normal first in second trimester -Continue PNV -Will start ASA -Anatomy US at 20wk 2. 12 weeks gestation of 3. Obesity in -Pregravid BMI 35. -Growth US every 4 weeks starting 32 weeks. -NSTs weekly starting at 36 weeks. 4. Anxiety and depression -Continue management with Dyan Corey CNP -Continue Lamictal and Pristiqe 5. Nausea and vomiting during -Vitamin B6 and zofran helpful for N/V PTL precautions reviewed and when to call RTO in 4 weeks Emilee Rose APRN.CNM [facility] 06-10-2024 Miscellaneous Notes YANNI-S: Herminia Gottlieb is a 28 year old female who presents at 12w6d with TIO:12/16/2024, by Last Menstrual Period for a routine visit. Denies headache, visual changes, chest pain, shortness of breath, vaginal bleeding, leakage of fluid, or dysuria. Feeling well, no complaints. First trimester US today. O: See flow sheet Gen: No apparent distress Abd: Gravid, nontender ASSESSMENT/PLAN: 1. Encounter for supervision of normal first in second trimester -Continue PNV -Will start ASA -Anatomy US at 20wk 2. 12 weeks gestation of 3. Obesity in -Pregravid BMI 35. -Growth US every 4 weeks starting 32 weeks. -NSTs weekly starting at 36 weeks. 4. Anxiety and depression -Continue management with Dyan Corey CNP -Continue Lamictal and Pristiqe 5. Nausea and vomiting during -Vitamin B6 and zofran helpful for N/V PTL precautions reviewed and when to call RTO in 4 weeks Emilee Rose APRN.CNM documented in this encounter [facility] 06-09-2024 Instructions Mt Baron MA - 06/09/2024 3:54 PM EST SEQUENTIAL SCREENINGS The [facility] offers sequential screenings for women who are interested in screenings for chromosomal abnormalities and certain defects during a . The sequential screen combines ultrasound and blood tests to determine the risk of chromosomal abnormalities, including Down's Syndrome (Trisomy 21) and Trisomy 18, as well as open neural tube defects including spina bifida. Ultrasound examination is performed between 11 weeks and 13 weeks gestational age. Blood tests are drawn after the ultrasound and again later in the between 15 and 21 weeks gestational age. Please let your physician know if you are interested in this testing. It will require an appointment with our land survey technician. This is not an ultrasound performed by a physician in our office during a routine visit. SIGNS AND SYMPTOMS OF LABOR 1. Contractions every 10 minutes or more often 2. Clear, pink, or brownish fluid (water) leaking from vagina 3. Feeling that baby is pushing down, pressure 4. Low, dull backache 5. Cramps that feel like a period 6. Cramps with or without diarrhea If you notice any of the above symptoms, contact our office at [phone] and ask to speak with a nurse. After hours, you can call doctors registry at [phone] OR call [facility] at [phone] and ask to have the doctor senior market intelligence consultant paged. If you consider this an emergency, dial 9--1 or go to your nearest emergency department. NEED HELP? Are you dealing with a violent or abusive relationship? Are you a victim of rape or sexual assult? Call [facility] ([place]) 24 hour Crisis Hotline: 358.264.1175 or 327-553-3663. MANUAL Your Guide to a Healthy manual is now on-line. Visit [email or web address] to download your free copy documented in this encounter [facility] 06-09-2024 Instructions Dyan Corey APRN.PATTERN MARKING SUPERVISOR - 06/09/2024 12:03 AM EST TREATMENT PLAN: Change Lamictal 100 mg to orally disintegrating form due to severe nausea and vomiting related to her . Continue Pristiq at the same dose of 100 mg to address anxiety symptoms. Work on taking it consistently to avoid interdose withdrawal symptoms. Continue individual psychotherapy. Follow up in 2 months. For those experiencing a suicidal crisis: --call the National Suicide Prevention Lifeline at 832 (663-601-6964) --text the Crisis Text Line (text HOME to 424002) --call 911 and let them know you are having a mental health crisis or go to your nearest Emergency Room for stabilization. --You can also call Mobile Crisis at [phone]. -- You may call the department appointment line at [phone] to schedule your appointment. -- Please call my nurse at [phone] or send me a message in Consert with any questions or concerns between appointments. documented in this encounter [facility] 06-08-2024 Telephone encounter Note Patient comment: I will not have supply to last until my next appointment on Friday and am still nauseated & vomiting 1-2 times daily. I have 2 doses left, one for tomorrow morning and afternoon. Requested Prescriptions Pending Prescriptions Disp Refills ondansetron (ZOFRAN) 8 mg tablet 30 tablet 1 Sig: Take 1 tablet by mouth every 8 hours as needed for nausea/vomiting. Cecilia Angel RN [facility] 06-08-2024 Miscellaneous Notes Patient comment: I will not have supply to last until my next appointment on Friday and am still nauseated & vomiting 1-2 times daily. I have 2 doses left, one for tomorrow morning and afternoon. Requested Prescriptions Pending Prescriptions Disp Refills ondansetron (ZOFRAN) 8 mg tablet 30 tablet 1 Sig: Take 1 tablet by mouth every 8 hours as needed for nausea/vomiting. Cecilia Angel RN documented in this encounter [facility] 06-01-2024 Note HNO ID: [id number] Author: DYAN COREY APRN.PATTERN MARKING SUPERVISOR Service: ? Author Type: Nurse Practitioner Type: Progress Notes Filed: 06/09/2024 00:03 Note Text: FOLLOW UP - PSYCHIATRIC PROGRESS NOTE PATIENT: Herminia Pinon [facility] DATE: June 01, 2024 Visit Type:In person All information is from Patient report except when noted. This evaluation is NOT intended for forensic, disability or child custody purposes. CC: Presenting today for follow up regarding psychiatric medication management. HPI: Treatment Plan from Last Visit on 03/29/2024: TREATMENT PLAN: Continue Lamictal at the same dose to address mood related symptoms. Continue Pristiq at the same dose to address anxiety symptoms. Utilize light therapy to help with seasonal mood changes. Continue individual psychotherapy every 2 weeks with her current provider. Follow up in 3 months or sooner if needed. Today Herminia shares that she is 11 weeks . She had a lot of concerns with nausea and vomiting during her first trimester. Had to go to the ER for fluid hydration once. She has been able to gain some weight. Able to eat consistently. Improved more recently. She is trying to stay hydrated. She is sleeping on the couch. Sleeping through the night. Sleeping on the recliner helps with her nausea as well. Shares that her mood has been stable. Reviewed all the medication related information and considerations during in detail. Verbalized feeling relieved after having this discussion as she feels more comfortable about her use of medication. Does plan on and considerations with period and her medications was also reviewed. Will be moving to a new house on June 19. Looking forward to this move. Denies it being a stressful thing at this time. Interval Progress: Same PATIENT DATA: Generalized Anxiety Disorder Scale (SUKHWINDER-7) 12/10/2023 03/28/2024 05/31/2024 SUKHWINDER - 7 SCORES Score 4 5 4 (0-4) minimal anxiety, (5-9) mild anxiety, (10-14) moderate anxiety, (15-21) severe anxiety Patient Health Questionnaire (PHQ-9) 03/28/2024 05/10/2024 05/31/2024 PHQ-9 Score 8 5 7 (0-4) minimal depression, (5-9) mild depression, (10-14) moderate depression, (15-19) moderately severe depression, (20-27) severe depression PAST MEDICAL HISTORY Diagnosis Date Appendicitis 01/2019 Cold sores Depression Previous suicide attempt Exercise-induced asthma PMH - PAST MEDICAL HISTORY OF 11/2004 normal color vision Varicella age 2 years PAST SURGICAL HISTORY Procedure Laterality Date EXTRACTION, ERUPTED TOOTH OR EXPOSED ROOT (ELEVATION AND/OR FORCEPS REMOVAL) LAPAROSCOPIC APPENDECTOMY 01/2019 ALLERGIES Allergen Reactions Seasonal Allergies Other: See Comments cough, sneeze,watery eyes Current Outpatient Medications on File Prior to Visit Medication Sig aspirin, enteric coated (ECOTRIN LOW STRENGTH) 81 mg EC tablet Take 1 tablet by mouth once daily. ondansetron (ZOFRAN) 8 mg tablet Take 1 tablet by mouth every 8 hours as needed for nausea/vomiting. desvenlafaxine ER (PRISTIQ) 100 mg 24 hr tablet Take 1 tablet by mouth once daily. PNV no.95/ferrous fum/folic ac ( ORAL) Take 1 tablet by mouth once daily. pyridoxine HCl, vitamin B6, (VITAMIN B-6 ORAL) Take 25 mg by mouth once daily. promethazine (PHENERGAN) 12.5 mg suppository 1 Suppository by RECTAL route every 6 hours as needed for nausea/vomiting. lamoTRIgine (LAMICTAL) 100 mg tablet Take 1 tablet by mouth once daily. valACYclovir (VALTREX) 1 gram Take 1 tablet by mouth twice daily. For cold sore outbreak LORATADINE ORAL Take by mouth. No current facility-administered medications on file prior to visit. ROS: See HPI PFSH: See HPI VITAL SIGNS: 06/01/24 1643 BP: 134/60 Pulse: 88 Resp: 18 Weight: 93.2 kg (205 lb 6.4 oz) Last 3 Encounter BP Readings: Date: BP: 06/01/2024 134/60 05/12/2024 110/68 05/10/2024 108/64 MENTAL STATUS EXAMINATION: Appearance: Well dressed, well groomed Behavior: Behaves appropriately during the encounter Social relatedness: Euthymic Speech/Language: The patient demonstrates appropriate tone, prosody, edith, phonetics, and syntax Mood: concerned Affect: Full and appropriate to topic Orientation: Person, Place, Time and Situation Associations: Intact and linear Hallucinations: None Delusions: None Suicidal Ideation: No suicidal ideation, intent or plan. Homicidal Ideation: No homicidal ideation, intent or plan. Insight: Appropriate Judgment: Appropriate DATA REVIEWED: Psychiatric scales, Electronic medical record, and Labs DIAGNOSIS: Mood disorder (hcc) (primary encounter diagnosis) Generalized anxiety disorder 11 weeks gestation of Encounter for long-term (current) use of medications Psychosocial stressors GAF: -70-61 Some mild symptoms or some difficulty in social, occupational, or school functioning, but gene (more content not included)... [facility] 06-01-2024 History of Presen t illness Narrative Images from the original note were not included. FOLLOW UP - PSYCHIATRIC PROGRESS NOTE PATIENT: Herminia Gottlieb DATE: June 01, 2024 Visit Type:In person All information is from Patient report except when noted. This evaluation is NOT intended for forensic, disability or child custody purposes. CC: Presenting today for follow up regarding psychiatric medication management. HPI: Treatment Plan from Last Visit on 03/29/2024: TREATMENT PLAN: Continue Lamictal at the same dose to address mood related symptoms. Continue Pristiq at the same dose to address anxiety symptoms. Utilize light therapy to help with seasonal mood changes. Continue individual psychotherapy every 2 weeks with her current provider. Follow up in 3 months or sooner if needed. Today Herminia shares that she is 11 weeks . She had a lot of concerns with nausea and vomiting during her first trimester. Had to go to the ER for fluid hydration once. She has been able to gain some weight. Able to eat consistently. Improved more recently. She is trying to stay hydrated. She is sleeping on the couch. Sleeping through the night. Sleeping on the recliner helps with her nausea as well. Shares that her mood has been stable. Reviewed all the medication related information and considerations during in detail. Verbalized feeling relieved after having this discussion as she feels more comfortable about her use of medication. Does plan on and considerations with period and her medications was also reviewed. Will be moving to a new house on June 19. Looking forward to this move. Denies it being a stressful thing at this time. Interval Progress: Same PATIENT DATA: Generalized Anxiety Disorder Scale (SUKHWINDER-7) 12/10/2023 03/28/2024 05/31/2024 SUKHWINDER - 7 SCORES Score 4 5 4 (0-4) minimal anxiety, (5-9) mild anxiety, (10-14) moderate anxiety, (15-21) severe anxiety Patient Health Questionnaire (PHQ-9) 03/28/2024 05/10/2024 05/31/2024 PHQ-9 Score 8 5 7 (0-4) minimal depression, (5-9) mild depression, (10-14) moderate depression, (15-19) moderately severe depression, (20-27) severe depression PAST MEDICAL HISTORY Diagnosis Date Appendicitis 01/2019 Cold sores Depression Previous suicide attempt Exercise-induced asthma PMH - PAST MEDICAL HISTORY OF 11/2004 normal color vision Varicella age 2 years PAST SURGICAL HISTORY Procedure Laterality Date EXTRACTION, ERUPTED TOOTH OR EXPOSED ROOT (ELEVATION AND/OR FORCEPS REMOVAL) LAPAROSCOPIC APPENDECTOMY 01/2019 ALLERGIES Allergen Reactions Seasonal Allergies Other: See Comments cough, sneeze,watery eyes Current Outpatient Medications on File Prior to Visit Medication Sig aspirin, enteric coated (ECOTRIN LOW STRENGTH) 81 mg EC tablet Take 1 tablet by mouth once daily. ondansetron (ZOFRAN) 8 mg tablet Take 1 tablet by mouth every 8 hours as needed for nausea/vomiting. desvenlafaxine ER (PRISTIQ) 100 mg 24 hr tablet Take 1 tablet by mouth once daily. PNV no.95/ferrous fum/folic ac ( ORAL) Take 1 tablet by mouth once daily. pyridoxine HCl, vitamin B6, (VITAMIN B-6 ORAL) Take 25 mg by mouth once daily. promethazine (PHENERGAN) 12.5 mg suppository 1 Suppository by RECTAL route every 6 hours as needed for nausea/vomiting. lamoTRIgine (LAMICTAL) 100 mg tablet Take 1 tablet by mouth once daily. valACYclovir (VALTREX) 1 gram Take 1 tablet by mouth twice daily. For cold sore outbreak LORATADINE ORAL Take by mouth. No current facility-administered medications on file prior to visit. ROS: See HPI PFSH: See HPI VITAL SIGNS: 06/01/24 1643 BP: 134/60 Pulse: 88 Resp: 18 Weight: 93.2 kg (205 lb 6.4 oz) Last 3 Encounter BP Readings: Date: BP: 06/01/2024 134/60 05/12/2024 110/68 05/10/2024 108/64 MENTAL STATUS EXAMINATION: Appearance: Well dressed, well groomed Behavior: Behaves appropriately during the encounter Social relatedness: Euthymic Speech/Language: The patient demonstrates appropriate tone, prosody, edith, phonetics, and syntax Mood: concerned Affect: Full and appropriate to topic Orientation: Person, Place, Time and Situation Associations: Intact and linear Hallucinations: None Delusions: None Suicidal Ideation: No suicidal ideation, intent or plan. Homicidal Ideation: No homicidal ideation, intent or plan. Insight: Appropriate Judgment: Appropriate DATA REVIEWED: Psychiatric scales, Electronic medical record, and Labs DIAGNOSIS: Mood disorder (hcc) (primary encounter diagnosis) Generalized anxiety disorder 11 weeks gestation of Encounter for long-term (current) use of medications Psychosocial stressors GAF: -70-61 Some mild symptoms or some difficulty in social, occupational, or school functioning, but generally functioning pretty well. TREATMENT PLAN: Change Lamictal 100 mg to orally disintegrating form due to severe nausea and vomiting related to her . Continue Pristiq at the same dose of 100 mg to address anxiety symptoms. Work on taking it consistently to avoid interdose withdrawal symptoms. Continue individual psychotherapy. Follow up in 2 months. MEDICATION CHANGES: Prescriptions given - Reviewed Lamictal titration & risk of severe rash. Instructed to call PAIGE if this occurs. See above. Risks and benefits of the medication, including any black box warnings, were discussed with the patient. Patient is aware to reach out with any questions, concerns, or worsening of symptoms prior to the next appointment. Patient educated on risks of substance use in combination with medications and advised that any substance use along with medications may alter their effectiveness. Follow Up: See Treatment Plan I spent a total of 50 minutes on the date of the service which included preparing to see the patient, [id number] patient care, completing clinical documentation, and counseling and educating the patient/family/caregiver, ordering medications/labs, educating regarding psychiatric medication considerations during and collaboration with other healthcare providers. ADD ON PSYCHOTHERAPY CODE : No SIGNATURE: Dyan Corey APRN.CNP PATIENT NAME: Herminia Pinon [facility] DATE: June 01, 2024 TIME: 5:08 PM documented in this encounter [facility] 05-12-2024 Progress note Formatting of t his note might be different from the original. YANNI-See NOB visit and progress note. Uncertain about NIPT and carrier screening, handouts given. Emilee Rose APRN.CNM [facility] 05-12-2024 Miscellaneous Notes YANNI-See NOB visit and progress note. Uncertain about NIPT and carrier screening, handouts given. Emilee Rose APRN.CNM documented in this encounter [facility] 05-12-2024 Note HNO ID: [id number] Author: MT BARON MA Service: ? Author Type: Community Service Worker Type: Progress Notes Filed: 05/12/2024 15:27 Note Text: OB point of care ultrasound was performed. See imaging tab for details. Mt Baron MA [facility] 05-12-2024 History of Presen t illness Narrative OB point of care ultrasound was performed. See imaging tab for details. Mt Baron MA INITIAL OB ASSESSMENT HPI: Jennifer is a 28 year old White Female here to establish Obstetrical Care. Patient's last menstrual period was 03/11/2024. from OB Dating Form. was unplanned but accepted Complaints: (!) Severe nausea/vomiting. Pt was seen by PCP 05/10/24 for vomiting-See documentation from OV with Светлана Srinivasan APRN, CNP--Reportedly decreased urination, Actively vomiting in office, Blood tinged streaks in vomitus-Reported to [facility] ER. States her urine was checked and bacteria was present-Was prescribed Cephalexin, but states she has no signs of a UTI and was advised by her holistic provider to not take. She has been seeing Homeopathic Dr. Ligia Foss [place], [facility]. Pt currently under the care of Dr. Dyan Hill for Psychiatric mental health history and taking medications as prescribed and currently feels well managed. OB History T0 L0 SAB0 IAB0 Ectopic0 Multiple0 Live Births0 Previous history: Prior : never History of 4th degree laceration: Perineal Laceration, 3rd or 4th degree N/A History of shoulder dystocia: Shoulder Dystocia N/A History of Hypertensive disorders including pre-eclampsia or gestational hypertension: Gestational Hypertension N/A Preeclampsia N/A History of gestational diabetes: Diabetes in N/A Patient's Risk Screening for delivery: Have you had a prior berger between 20w and 36w6d? No How many pregnancies have you had before? 0 Did you have a previous baby with a GBS Infection? No Please select all that apply for any prior : N/A MEDICAL/PSYCHOSOCIAL HISTORY: Severe bleeding with delivery N/A Thyroid Disease N/A Gestational Hypertension N/A Preeclampsia N/A Diabetes in N/A No results found for: ABORHD BMI 35.36 kg/(m^2) Last Pap: 11/08/2021 History of abnormal pap: Abnormal Pap N/A Prior treatment for cervical dysplasia: none. Last HPV: History of STDs: N/A Partner History of STDs: None Did you have a partner with Herpes? No Tobacco use: No E-Cigarette/Vaping Use: No Caffeine use: No Drug use: No Alcohol use: No Multivitamin with Folic acid: Yes Would refuse blood transfusion if medically necessary: No Social Needs: How often does this describe you? I don't have enough money to pay my bills: Never Within the past 12 months, have you worried that your food would run out before you had money to buy more? Never In the past 12 months, has lack of reliable transportation kept you from going to medical appointments or work, or from getting things needed for daily living? Never In the past 12 months, have you had any concerns about having a place to live, or about the condition or quality of your housing? Never Would you like more information on any of the following (please check all that apply)? 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 Yes Do you have a history of abuse or trauma that may impact your experience? No Are you currently employed? Yes Depression/Anxiety Screening: denies symptoms of depression. OB Depression and Anxiety Screening- This Encounter (since 05/11/2024) Over the past 2 weeks have you felt down, depressed, or hopeless? Negative Over the past two weeks, have you felt little interest or pleasure in doing things? Negative Feeling nervous, anxious or on edge 1-Several days Not being able to stop or control worrying 0-Not al all Anxiety Pre-Screening Total (If >/= 3 additional questions will be reviewed) 1 Genetic Screening: Partner present: Yes Patient verbalized knowledge of partner family health history: No Do you or your partner have any personal or family history of defects not previously discussed: No Do you have history of a complicated by anomaly, genetic condition, or demise: No Preeclampsia Risk Screening: Screening for prevention of preeclampsia: High risk factors: None Moderate risk ractors: Nulliparity and Obesity (body mass index greater than 30) OB Risk Screening: Completed, no positive findings documented. Marital Status: Partner: Name: Meek Age: 29 Occupation: auto body mechanic Gender: Male PAST MEDICAL HISTORY Diagnosis Date Appendicitis 01/2019 Cold sores Depression Previous suicide attempt Exercise-induced asthma PMH - PAST MEDICAL HISTORY OF 11/2004 normal color vision Varicella age 2 years PAST SURGICAL HISTORY Procedure Laterality Date EXTRACTION, ERUPTED TOOTH OR EXPOSED ROOT (ELEVATION AND/OR FORCEPS REMOVAL) LAPAROSCOPIC APPENDECTOMY 01/2019 Current Outpatient Medications Medication Sig Dispense Refill PNV no.95/ferrous fum/folic ac ( ORAL) Take 1 tablet by mouth once daily. pyridoxine HCl, vitamin B6, (VITAMIN B-6 ORAL) Take 25 mg by mouth once daily. promethazine (PHENERGAN) 12.5 mg suppository 1 Suppository by RECTAL route every 6 hours as needed for nausea/vomiting. 12 Suppository 0 desvenlafaxine ER (PRISTIQ) 100 mg 24 hr tablet Take 1 tablet by mouth once daily. 90 tablet 0 lamoTRIgine (LAMICTAL) 100 mg tablet Take 1 tablet by mouth once daily. 90 tablet 0 ondansetron orally disintegrating (ZOFRAN ODT) 4 mg disintegrating tablet Take 1 tablet by mouth every 6 hours as needed for nausea/vomiting. 20 tablet 0 valACYclovir (VALTREX) 1 gram Take 1 tablet by mouth twice daily. For cold sore outbreak 6 tablet 5 LORATADINE ORAL Take by mouth. fluticasone (FLONASE) 50 mcg/actuation nasal spray Use 2 Sprays in each nostril once daily. Rinse mouth after use. (Patient taking differently: Use 2 Sprays in each nostril once daily. Rinse mouth after use.... uses as needed) 1 Bottle 1 cyclobenzaprine (FLEXERIL) 10 mg tablet Take 1 tablet by mouth three times a day as needed for muscle spasm. (Patient not taking: Reported on 05/11/2024) 30 tablet 0 vitamin b complex tab Take 1 tablet by mouth once daily. (Patient not taking: Reported on 05/11/2024) Biotin 1 mg tab Take 1 tablet by mouth. (Patient not taking: Reported on 05/11/2024) uyldnelf-twgi-LP-calcium-mins 18 mg iron-400 mcg-500 mg Ca tab (Patient not taking: Reported on 05/11/2024) multivitamin (OPTIVITE P.M.T. ORAL) (Patient not taking: Reported on 05/11/2024) albuterol HFA (VENTOLIN HFA) 90 mcg/actuation inhaler Inhale 2 Puffs as instructed every 4 hours as needed for Wheezing/Shortness of Breath. (Patient not taking: Reported on 05/11/2024) 1 Inhaler 0 No current facility-administered medications for this visit. Allergies As of Date: 05/12/2024 Allergen Noted Reaction SEASONAL ALLERGIES 10/15/2010 Other: See Comments Fully Assessed 05/12/2024 Does patient have penicillin allergy: No REVIEW OF SYSTEMS: GENERAL: Negative for: Fever or Chills HEENT: Negative for: Headache, Impaired Vision, Ringing in Ears, Nosebleeds NECK: Negative for: Swelling, Pain, Stiffness RESPIRATORY: Negative for: Cough, Shortness of breath, Wheezing GASTROINTESTINAL: Negative for: Heartburn, Constipation, Diarrhea, Blood in stool, Vomiting MUSCULOSKELETAL: Negative for: Muscle or joint pain, stiffness, Joint swelling NEUROLOGIC/PSYCHIATRIC: Negative for: Weakness, Paralysis, Numbness, Tingling, Tremor, Anxiety, Depression, Memory loss SKIN: Negative for: Rash, Itching GENITOURINARY: Negative for: vaginal itching, vaginal discharge, hematuria or dysuria SENSITIVE EXAM: The sensitive examination was discussed with the Patient or Patient's Authorized Hacksaw Inspector. As applicable, any other physician, advance practice provider, medical student, or other health professional student that will be observing or involved in the sensitive examination for educational or training purposes was discussed with the Patient or Authorized Hacksaw Inspector. The Patient or Authorized Hacksaw Inspector has agreed to proceed with the sensitive examination. (Sensitive examination includes inspection and/or palpation of the breasts, pelvis, prostate and anorectal regions). PHYSICAL EXAM: BP 110/68 Ht 5' 4 (1.63m) Wt 206 lb (93.4kg) LMP 03/11/2024 BMI 35.34 kg/(m^2). GENERAL: pleasant in no apparent distress DERMATOLOGY: Normal, without lesions, non-icteric, and non-hirsute NECK: Supple, full range of motion, no adenopathy, and thyroid normal CHEST: Normal inspiratory effort BREAST: soft, non-tender, symmetric, no dominant mass, normal nipple-areolar complex, no lymphadenopathy, and no nipple discharge ABDOMEN: soft, non-tender, and no masses NEURO: alert and oriented x3,exam grossly non-focal PELVIS: External genitalia normal without lesions. Perineal body intact. No vaginal or cervical lesions. Cervix closed. Uterus 8 week size. No adnexal masses or tenderness. Clinical Pelvimetry: Pelvimetry clinically assessed as adequate Limited OB ultrasound exam: single intrauterine , positive cardiac activity, crown-rump length 8w3d, and normal bilateral adnexa LMP 8w6d US 8w3d TIO: 12/16/24 by LMP ASSESSMENT: 28 year old at 8w6d wks gestational age PLAN: 1) Patient oriented to practice. Patient given new OB orientation folder. Discussed nutrition, folic acid supplementation, dietary guidelines, exercise, smoking, alcohol, caffeine, and drug use. Discussed gestational weight gain guidelines. Discussed routine OB labs including STD/HIV. Discussed hemoglobin electrophoresis. Patient: Accepts 2) Screening: Hemoglobin A1C: ordered Baby Aspirin: The patient has been counseled about the potential benefits of low dose aspirin in and our recommendation that this be offered to all patients, regardless of whether they meet the high risk criteria specified above. She Accepts Aneuploidy Screening: Discussed aneuploidy screening, nuchal translucency/first trimester early anatomy ultrasound and NIPT. The risks/benefits and limitations of NIPT/aneuploidy screening were reviewed including the potential for false negative and false positive results. The availability of genetic counseling was reviewed. Information on aneuploidy screening was provided. The patient chooses to proceed with First trimester early anatomy ultrasound (12-13w6d). Information provided for NIPT Myriad Carrier Screening: Discussed myriad carrier screening. We discussed the availability of professional-society guided carrier screening and reviewed the conditions screened and limitations of screening. The availability of genetic counseling was reviewed. Information on carrier screening was provided. The patient information provided 3) Patient offered option of Virtual Visits. Patient prefers in person visits. 4) Obesity (BMI >30), will order early glucose screen or Hemoglobin A1C. 5) Taking Lamictal and Pristiq for medication management of anxiety and depression. Has reviewed and medications prior to conception with Dyan Corey NP per patient. Today discussed risks of continued medication use vs discontinuation. Handout given on Lamictal and risks discussed. Pristiq risks reviewed as well. Discussed untreated depression risks. Will forward chart to Dyan and can assist in determining if continued regimen is needed for patient during . Discussed with patient would Follow up in 4 weeks or sooner prn. Emilee Rose APRN.CNM documented in this encounter [facility] 05-11-2024 Note HNO ID: [id number] Author: EMILEE ROSE APRN.CNM Service: ? 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 Patient's last menstrual period was 03/11/2024. from OB Dating Form. was unplanned but accepted Complaints: (!) Severe nausea/vomiting. Pt was seen by PCP 05/10/24 for vomiting-See documentation from OV with Светлана Srinivasan APRN, CNP--Reportedly decreased urination, Actively vomiting in office, Blood tinged streaks in vomitus-Reported to [facility] ER. States her urine was checked and bacteria was present-Was prescribed Cephalexin, but states she has no signs of a UTI and was advised by her holistic provider to not take. She has been seeing Homeopathic Dr. Ligia Foss CT, [facility]. Pt currently under the care of Dr. Dyan Hill for Psychiatric mental health history and taking medications as prescribed and currently feels well managed. OB History T0 L0 SAB0 IAB0 Ectopic0 Multiple0 Live Births0 Previous history: Prior : never History of 4th degree laceration: Perineal Laceration, 3rd or 4th degree N/A History of shoulder dystocia: Shoulder Dystocia N/A History of Hypertensive disorders including pre-eclampsia or gestational hypertension: Gestational Hypertension N/A Preeclampsia N/A History of gestational diabetes: Diabetes in N/A Patient's Risk Screening for delivery: Have you had a prior berger between 20w and 36w6d? No How many pregnancies have you had before? 0 Did you have a previous baby with a GBS Infection? No Please select all that apply for any prior : N/A MEDICAL/PSYCHOSOCIAL HISTORY: Severe bleeding with delivery N/A Thyroid Disease N/A Gestational Hypertension N/A Preeclampsia N/A Diabetes in N/A No results found for: ABORHD BMI 35.36 kg/(m2) Last Pap: 11/08/2021 History of abnormal pap: Abnormal Pap N/A Prior treatment for cervical dysplasia: none. Last HPV: History of STDs: N/A Partner History of STDs: None Did you have a partner with Herpes? No Tobacco use: No E-Cigarette/Vaping Use: No Caffeine use: No Drug use: No Alcohol use: No Multivitamin with Folic acid: Yes Would refuse blood transfusion if medically necessary: No Social Needs: How often does this describe you? I don't have enough money to pay my bills: Never Within the past 12 months, have you worried that your food would run out before you had money to buy more? Never In the past 12 months, has lack of reliable transportation kept you from going to medical appointments or work, or from getting things needed for daily living? Never In the past 12 months, have you had any concerns about having a place to live, or about the condition or quality of your housing? Never Would you like more information on any of the following (please check all that apply)? 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 Yes Do you have a history of abuse or trauma that may impact your experience? No Are you currently employed? Yes Depression/Anxiety Screening: denies symptoms of depression. OB Depression and Anxiety Screening- This Encounter (since 05/11/2024) Over the past 2 weeks have you felt down, depressed, or hopeless? Negative Over the past two weeks, have you felt little interest or pleasure in doing things?? Negative Feeling nervous, anxious or on edge 1-Several days Not being able to stop or control worrying 0-Not al all Anxiety Pre-Screening Total (If >/= 3 additional questions will be reviewed) 1 Genetic Screening: Partner present: Yes Patient verbalized knowledge of partner family health history: No Do you or your partner have any personal or family history of defects not previously discussed: No Do you have history of a complicated by anomaly, genetic condition, or demise: No Preeclampsia Risk Screening: Screening for prevention of preeclampsia: High risk factors: None Moderate risk ractors: Nulliparity and Obesity (body mass index greater than 30) OB Risk Screening: Completed, no positive findings documented. 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 [facility] 05-11-2024 Instructions Emilee Rose APRN.CNM - 05/11/2024 4:00 PM EST Please select the following link to access the [facility] Your Guide to a Healthy . [email or web address] Ondansetron (Zofran ) December 04, 2019 This sheet talks about exposure to ondansetron in a and while . This information should not take the place of medical care and advice from your healthcare provider. What is ondansetron? Ondansetron is a medication used to treat nausea and vomiting that may be caused by surgery, chemotherapy, or radiation therapy. Ondansetron has also been prescribed during to help with symptoms of nausea and vomiting in (NVP). NVP is also referred to as morning sickness . Ondansetron is taken by mouth, infused into a vein (by IV) or given by injection into a muscle (IM). Ondansetron is sold under the brand name Zofran . What can I do to help control my nausea and vomiting? [employer] has a helpful fact sheet on nausea in with recommendations. You can review it here: https://[employer].org/fact-sh eets/sdflnk-wedadbyz-fleaqdkjr-n vp care management/pdf/. Also, eating small meals often, drinking plenty of clear fluids, and avoiding triggers (such as odors, heat, and spicy or high fat foods) can help. Talk to your healthcare provider about which NVP treatments are right for you. I take ondansetron. Can it make it harder for me to become ? There are no studies that have looked to see if ondansetron could make it harder for a person to get . Studies in animals did not find that ondansetron would affect the ability to get . Does taking ondansetron increase the chance for miscarriage? Miscarriage can occur in any . One study did not find that miscarriage happened more often for those who reported that they used ondansetron in the first trimester of . Does taking ondansetron increase the chance of defects? Every starts out with a 3-5% chance of having a defect. This is called the background risk. Most studies have found no increased chance for defects among thousands of people who used ondansetron in the first trimester of . A few studies reported a very small (less than 1%) increase in the chance for a cleft palate (an opening in the roof of the mouth that may be repaired with surgery) or a heart defect. Because of other factors that could affect the pregnancies exposed to ondansetron, it is not known if ondansetron actually increases the chance of defects. Could taking ondansetron cause other complications? Studies did not find a higher chance of loss, delivery (delivery before 37 weeks of ), or low weight when ondansetron was used during . At higher doses, there have been reports that ondansetron use might cause a heart rhythm problem (called QT interval prolongation) in the person taking ondansetron. In severe cases, this could become an abnormal heart rhythm known as Torsades de Pointes. If you are taking ondansetron, you can talk to your healthcare provider about how to watch for changes in your heart rhythm. Does taking ondansetron in cause long-term problems in behavior or learning for the baby? One study looked at 78 infants who were exposed to ondansetron at any time during . The infants were looked at between 7 days to 2 months of age and did not show any signs of unusual behaviors. A single follow-up survey for about 25 of these children was sent in by the parents. The children were between 1 to 5 years old. The survey asked about behavior. The surveys did not report behavior differences in these children compared to children who were not exposed ondansetron during . There are no other studies looking at the use of ondansetron in and long-term effects for the baby. Can I breastfeed while taking ondansetron? There have been no studies in humans looking at the use of ondansetron during . Studies in animals suggest that ondansetron enters breast milk, but the effects of ondansetron on a are not known. If ondansetron use is necessary, it is not usually a reason to stop . A different drug may be considered, especially while a or . Be sure to talk to your healthcare provider about all your questions. I take ondansetron. Can it make it harder for me to get my partner or increase the chance of defects? There are no human studies looking at male use of ondansetron. Animal studies have not shown any effect on male fertility. In general, exposures that fathers and sperm donor have are unlikely to increase risks to a . For more information, please see the [employer] fact sheet Paternal Exposures at https://[employer].org/fact-sh eets/eytdjaax-frlityzto-yjypibss y/pdf/. Lamotrigine (Lamictal ) This sheet is about exposure to lamotrigine in and while . This information is based on available published literature. It should not take the place of medical care and advice from your healthcare provider. What is lamotrigine? Lamotrigine is a medication that has been used to treat bipolar disorder, some types of seizures, and Tyner-Gastaut syndrome (a severe form of epilepsy). A brand name for lamotrigine is Lamictal . Sometimes when people find out they are , they think about changing how they take their medication, or stopping their medication altogether. However, it is important to talk with your healthcare providers before making any changes to how you take your medication. Your healthcare providers can talk with you about the benefits of treating your condition and the risks of untreated illness during . Having a seizure while could be harmful to a . People who have bipolar disorder and stop taking their medication are at increased risk for episodes of depression or mary that may be harmful to both the person who is and the . For more information on depression in , please see the [employer] fact sheet at https://[employer].org/fact-sh eets/depression-/. If your lamotrigine dose is increased during , talk with your healthcare provider about how and when to lower your dose after delivery. I take lamotrigine. Can it make it harder for me to get ? One study suggested lamotrigine might make it harder to get . Having a seizure disorder, as well as long-term use of seizure medications, might be associated with irregular periods and hormonal disorders which could lead to a harder time getting (infertility). Does taking lamotrigine increase the chance of miscarriage? Miscarriage is common and can occur in any for many different reasons. Studies have not found that lamotrigine is associated with a higher chance of miscarriage. Does taking lamotrigine increase the chance of defects? Every starts out with a 3-5% chance of having a defect. This is called the background risk. One study suggested a less than 1% (less than 1 in 100) increase in oral clefts such as cleft lip and/or palate (an opening in the upper lip or the roof of the mouth) with the use of lamotrigine in the first trimester of . However, this finding was not confirmed by other studies. Also, several studies looking at several thousand pregnancies have found no increased chance of defects when lamotrigine is taken during . Does taking lamotrigine in increase the chance of other -related problems? Use of lamotrigine in has not been associated with an increased chance for other complications, such as delivery ( before week 37) or poor growth of the fetus (small size, low weight, or smaller head measurement). Does taking lamotrigine in affect future behavior or learning for the child? Several studies have looked at the development of babies and children who were exposed to lamotrigine during . Most of these studies did not find differences in behavior or learning between babies exposed to lamotrigine and those who were not. while taking lamotrigine: Lamotrigine passes into breast milk. The amount of lamotrigine in breastmilk is usually much lower than the amount that would be given to a baby directly to control seizures. Most infants who are exposed to lamotrigine in breastmilk are not expected to have side effects. There have been case reports of breastfed infants with breathing problems and anemia (low red blood cell counts). Lamotrigine (Lamictal ) May 05, 2023 page 2 of 2 Babies can be watched for possible side effects, such as a rash, trouble breathing, sleepiness, or poor sucking. If the baby develops any symptoms, especially a rash, contact your healthcare provider and your child s healthcare provider right away. They will talk with you about using lamotrigine and the best way to treat your condition while . Be sure to talk to your healthcare provider about all your questions. If your lamotrigine dose was increased during , talk with your healthcare provider about how and when to lower your dose after delivery. If a male takes lamotrigine, could it affect fertility or increase the chance of defects? documented in this encounter [facility] 05-10-2024 Note HNO ID: [id number] Author: СВЕТЛАНА SRINIVASAN APRN.PATTERN MARKING SUPERVISOR Service: ? Author Type: Nurse Practitioner Type: Progress Notes Filed: 05/10/2024 11:48 Note Text: This is a 28 year old female who presents today with: Patient presents with: Vomiting HISTORY OF PRESENT ILLNESS: Herminia Gottlieb is a 28 year old female. Patient presents with: Vomiting Pt presents today w/ n/v. -- appx 8-9 weeks. Not keeping anything down. Had some zofran and did take that. Has tried unisom at night. Was taking b6 and unisom (at night). B6 wasn't helpful. Can't take the unisom during the day d/t working. She is also using sea-sickness bands. Last zofran on . She is 8 weeks and 4 days. Was given phenergan, but unable to afford to be drowsy. Hasn't taken. 1st OB appt Friday. Not keeping routine medication down. Not able to keep prenatals down. Barely took anything in orally yesterday. Minimal on Friday. She has tried plain crackers and plain cheerios without success. Last BM 05/07. Barely urinating and dark yellow. Throat irritated. Did have streak of blood in vomitus here. Weight down 7-9 pounds. PAST MEDICAL HISTORY: PAST MEDICAL HISTORY Diagnosis Date Appendicitis 01/2019 Cold sores Depression Previous suicide attempt Exercise-induced asthma PMH - PAST MEDICAL HISTORY OF 11/2004 normal color vision Varicella age 2 years PAST SURGICAL HISTORY Procedure Laterality Date EXTRACTION, ERUPTED TOOTH OR EXPOSED ROOT (ELEVATION AND/OR FORCEPS REMOVAL) LAPAROSCOPIC APPENDECTOMY 01/2019 ALLERGIES Seasonal Allergies MEDICATIONS Current Outpatient Medications Medication Sig promethazine (PHENERGAN) 12.5 mg suppository 1 Suppository by RECTAL route every 6 hours as needed for nausea/vomiting. desvenlafaxine ER (PRISTIQ) 100 mg 24 hr tablet Take 1 tablet by mouth once daily. lamoTRIgine (LAMICTAL) 100 mg tablet Take 1 tablet by mouth once daily. ondansetron orally disintegrating (ZOFRAN ODT) 4 mg disintegrating tablet Take 1 tablet by mouth every 6 hours as needed for nausea/vomiting. cyclobenzaprine (FLEXERIL) 10 mg tablet Take 1 tablet by mouth three times a day as needed for muscle spasm. vitamin b complex tab Take 1 tablet by mouth once daily. Biotin 1 mg tab Take 1 tablet by mouth. valACYclovir (VALTREX) 1 gram Take 1 tablet by mouth twice daily. For cold sore outbreak LORATADINE ORAL Take by mouth. fluticasone (FLONASE) 50 mcg/actuation nasal spray Use 2 Sprays in each nostril once daily. Rinse mouth after use. (Patient taking differently: Use 2 Sprays in each nostril once daily. Rinse mouth after use.... uses as needed) kktzicve-iuai-HE-calcium-mins 18 mg iron-400 mcg-500 mg Ca tab multivitamin (OPTIVITE P.M.T. ORAL) albuterol HFA (VENTOLIN HFA) 90 mcg/actuation inhaler Inhale 2 Puffs as instructed every 4 hours as needed for Wheezing/Shortness of Breath. No current facility-administered medications for this visit. FAMILY HISTORY Problem Relation Age of Onset other (mental health) Mother Stroke Father other (Epilepsy) Father Anxiety disorder Sister Depression Sister Asthma Sister Prematurity Sister other (one kidney) Sister Anxiety disorder Brother Stroke Maternal Grandfather Alzheimer's Disease Maternal Grandfather Heart Paternal Grandmother Stroke Paternal Grandmother Social History Tobacco Use Smoking status: Never Smokeless tobacco: Never Vaping Use Vaping status: Never Used Substance Use Topics Alcohol use: Yes Comment: rare Drug use: Never EXAM: BP 108/64 (BP Site: Left Arm, BP Position: Sitting, BP Cuff Size: Regular Adult) Pulse 68 Wt 90.3 kg (199 lb) LMP 03/11/2024 (Exact Date) BMI 34.16 kg/m? PHYSICAL EXAM: General Appearance: Well appearing, alert, in no acute distress, well-hydrated, well nourished.. Skin: Skin color, texture, turgor normal, no suspicious rashes or lesions. Head: Normocephalic, no masses, lesions, tenderness or abnormalities. Eyes: Anicteric sclera. Extraocular movements are intact. . Lungs: Lungs clear to auscultation. No wheezing, rhonchi, rales.. Heart: RRR without murmur, gallop, or rubs. No ectopy. Neurologic: Gait normal. ASSESSMENT/PLAN: 1. Morning sickness - ICD9: 643.00, ICD10: O21.0 Not keeping liquids down. Reportedly decreased urination. Activity vomiting in office. Blood tinged streaks in vomitus. Likely needs IV hydration. She is agreeable to ER. Report to [facility]. Discussed treatment plan and patient voices understanding. Patient's questions answered appropriately. Medications and potential side effects were discussed and patient voices understanding. Return to the office as scheduled or as needed for worsening/no improvement. Светлана Srinivasan APRN.[facility] 05-10-2024 History of Presen t illness Narrative This is a 28 year old female who presents today with: Patient presents with: Vomiting HISTORY OF PRESENT ILLNESS: Herminia Gottlieb is a 28 year old female. Patient presents with: Vomiting Pt presents today w/ n/v. -- appx 8-9 weeks. Not keeping anything down. Had some zofran and did take that. Has tried unisom at night. Was taking b6 and unisom (at night). B6 wasn't helpful. Can't take the unisom during the day d/t working. She is also using sea-sickness bands. Last zofran on . She is 8 weeks and 4 days. Was given phenergan, but unable to afford to be drowsy. Hasn't taken. 1st OB appt Friday. Not keeping routine medication down. Not able to keep prenatals down. Barely took anything in orally yesterday. Minimal on Friday. She has tried plain crackers and plain cheerios without success. Last BM 05/07. Barely urinating and dark yellow. Throat irritated. Did have streak of blood in vomitus here. Weight down 7-9 pounds. PAST MEDICAL HISTORY: PAST MEDICAL HISTORY Diagnosis Date Appendicitis 01/2019 Cold sores Depression Previous suicide attempt Exercise-induced asthma PMH - PAST MEDICAL HISTORY OF 11/2004 normal color vision Varicella age 2 years PAST SURGICAL HISTORY Procedure Laterality Date EXTRACTION, ERUPTED TOOTH OR EXPOSED ROOT (ELEVATION AND/OR FORCEPS REMOVAL) LAPAROSCOPIC APPENDECTOMY 01/2019 ALLERGIES Seasonal Allergies MEDICATIONS Current Outpatient Medications Medication Sig promethazine (PHENERGAN) 12.5 mg suppository 1 Suppository by RECTAL route every 6 hours as needed for nausea/vomiting. desvenlafaxine ER (PRISTIQ) 100 mg 24 hr tablet Take 1 tablet by mouth once daily. lamoTRIgine (LAMICTAL) 100 mg tablet Take 1 tablet by mouth once daily. ondansetron orally disintegrating (ZOFRAN ODT) 4 mg disintegrating tablet Take 1 tablet by mouth every 6 hours as needed for nausea/vomiting. cyclobenzaprine (FLEXERIL) 10 mg tablet Take 1 tablet by mouth three times a day as needed for muscle spasm. vitamin b complex tab Take 1 tablet by mouth once daily. Biotin 1 mg tab Take 1 tablet by mouth. valACYclovir (VALTREX) 1 gram Take 1 tablet by mouth twice daily. For cold sore outbreak LORATADINE ORAL Take by mouth. fluticasone (FLONASE) 50 mcg/actuation nasal spray Use 2 Sprays in each nostril once daily. Rinse mouth after use. (Patient taking differently: Use 2 Sprays in each nostril once daily. Rinse mouth after use.... uses as needed) eyxzdqow-mkgh-YQ-calcium-mins 18 mg iron-400 mcg-500 mg Ca tab multivitamin (OPTIVITE P.M.T. ORAL) albuterol HFA (VENTOLIN HFA) 90 mcg/actuation inhaler Inhale 2 Puffs as instructed every 4 hours as needed for Wheezing/Shortness of Breath. No current facility-administered medications for this visit. FAMILY HISTORY Problem Relation Age of Onset other (mental health) Mother Stroke Father other (Epilepsy) Father Anxiety disorder Sister Depression Sister Asthma Sister Prematurity Sister other (one kidney) Sister Anxiety disorder Brother Stroke Maternal Grandfather Alzheimer's Disease Maternal Grandfather Heart Paternal Grandmother Stroke Paternal Grandmother Social History Tobacco Use Smoking status: Never Smokeless tobacco: Never Vaping Use Vaping status: Never Used Substance Use Topics Alcohol use: Yes Comment: rare Drug use: Never EXAM: BP 108/64 (BP Site: Left Arm, BP Position: Sitting, BP Cuff Size: Regular Adult) Pulse 68 Wt 90.3 kg (199 lb) LMP 03/11/2024 (Exact Date) BMI 34.16 kg/m PHYSICAL EXAM: General Appearance: Well appearing, alert, in no acute distress, well-hydrated, well nourished.. Skin: Skin color, texture, turgor normal, no suspicious rashes or lesions. Head: Normocephalic, no masses, lesions, tenderness or abnormalities. Eyes: Anicteric sclera. Extraocular movements are intact. . Lungs: Lungs clear to auscultation. No wheezing, rhonchi, rales.. Heart: RRR without murmur, gallop, or rubs. No ectopy. Neurologic: Gait normal. ASSESSMENT/PLAN: 1. Morning sickness - ICD9: 643.00, ICD10: O21.0 Not keeping liquids down. Reportedly decreased urination. Activity vomiting in office. Blood tinged streaks in vomitus. Likely needs IV hydration. She is agreeable to ER. Report to [facility]. Discussed treatment plan and patient voices understanding. Patient's questions answered appropriately. Medications and potential side effects were discussed and patient voices understanding. Return to the office as scheduled or as needed for worsening/no improvement. Светлана Srinivasan APRN.PATTERN MARKING SUPERVISOR documented in this encounter [facility] 05-10-2024 Telephone encounter Note Opened in error [facility] 05-10-2024 Miscellaneous Notes Opened in error documented in this encounter [facility] 05-07-2024 Telephone encounter Note Pt notified and voiced understanding. Lisa Pedro RN [facility] 05-07-2024 Miscellaneous Notes Pt notified and voiced understanding. Lisa Pedro RN Rx for suppository sent for patient to use if unable to keep food or liquids down. Nayeli Bowman APRN.CNM Patient seen for a virtual visit yesterday with c/o nausea and vomiting in early . Patient called this morning to report that shortly after taking her Vitamin B6 and claudio along with some apple juice and dry Cheerios she vomited. Patient took Unisom last night. Encouraged to give the Vitamin B6 and Unisom a chance to work. Patient asking if she could have a medication sent in in case she needs it with the weekend. Discussed going to ER for IV hydration if not able to keep anything down for 24 hours. Can a medication be sent in? Denisa Shepherd RN documented in this encounter [facility] 05-07-2024 Telephone encounter Note Rx for suppository sent for patient to use if unable to keep food or liquids down. Nayeli Bowman APRN.CNM [facility] 05-07-2024 Telephone encounter Note Patient seen for a virtual visit yesterday with c/o nausea and vomiting in early . Patient called this morning to report that shortly after taking her Vitamin B6 and claudio along with some apple juice and dry Cheerios she vomited. Patient took Unisom last night. Encouraged to give the Vitamin B6 and Unisom a chance to work. Patient asking if she could have a medication sent in in case she needs it with the weekend. Discussed going to ER for IV hydration if not able to keep anything down for 24 hours. Can a medication be sent in? Denisa Shepherd, RN [facility] 05-06-2024 Instructions Nayeli Bowman APRN.[facility] - 05/06/2024 4:46 PM EST As you may already know, morning sickness can often be more appropriately called evening sickness or yhgsc-jlfsch-ac-the-day sickness. While there are the roverto few, most women (50-90%) experience some degree of nausea, some have vomiting, and a few develop a severe form of vomiting during called hyperemesis gravidarum. What causes the nausea and vomiting of ? We can't explain why some people feel fine and others are green for months. Even the same woman may feel vastly different in each . There is some relationship between nausea and the level of the hormone hCG. In twin pregnancies, and in other situations where the hCG is greater than expected, nausea and vomiting tend to be worse. In a destined for miscarriage, hCG levels tend to be low, and nausea is often less severe. This being said, a lack of nausea doesn't guarantee that the is destined for miscarriage. The fact that nausea and vomiting are often signs of a healthy can offer a silver lining in the dark cloud of miserable nausea. How long will the nausea last? Fortunately, for most women, nausea and vomiting are a first trimester event, peaking at week 9-10 and waning by week 14-16. When you are feeling bad the weeks can go by slowly but most moms do feel tremendously better by the middle of the . Whether morning sickness is a brief experience or lasts through most of the , there are treatments that can make the weeks or months more tolerable. What can you do about it? Diet: See what works for you. Try eating bland dry foods, and avoid fatty or spicy foods. It is okay to eat a less than perfectly balanced diet in the first trimester. Have your liquids separately from dry foods. Try sports drinks, water, clear juices, Gilson-aid, or non-caffeinated tea. Avoid carbonated beverages that fill up your stomach. Try eating lots of little meals. If you tend to feel sick when you first wake up, leave crackers next to the bed for a quick snack before rising. Keeping healthy snacks with you all day to nibble when you feel queasy can sometimes even prevent nausea from starting. vitamins and nausea: Pre- vitamins can sometimes worsen nausea in . While folate is necessary, especially early in the , it comes as a smaller pill that many people find more tolerable than the complete vitamin pill. Ask your practitioner if it is okay to temporarily replace vitamins and iron with just a folate pill if you find a significant worsening in the level of your nausea from the vitamins. Alternative therapies: Acupressure may be used to treat nausea in , and is not known to have any risks for the fetus. Wristbands (marketed for seasickness) that put pressure on an acupressure point at the wrist are often available at drugstores or travel stores. Claudio root is used for nausea in many traditional cultures. Some women take fresh grated claudio or claudio tablets. It is possible that the pill form contains other ingredients or contaminants, so you may want to try fresh claudio first. Medications: Emetrol is the only nausea medication approved for use in . It is available over the counter and is soothing to the stomach. A prescription medication called Bendectin was available in the 1970s-1979's and was shown to be safe in , but the company stopped marketing it in the [place] due to the costs of liability coverage. Bendectin contained 10 milligrams of vitamin B6 and 10 milligrams of Doxylamine. Two tablets were given at bedtime and a total of up to 4 tablets could be used in a 24-hour period. Interestingly, Unisom , which contains a higher dose (25 mg.) of the same medication, Doxylamine, is currently marketed as an nnpl-eza-dhmbhno sleeping pill. Ask your practitioner if creating a vitamin B6/Doxylamine combination with oyzp-ytv-zpwwlda medications would be safe for you. Prescription medications like Compazine and Phenergan can be used if the benefits outweigh possible risks, but these have not been clearly shown to be safe in . Zofran , an expensive anti-nausea medication often used to treat nausea from chemotherapy, can also be used. Can I throw up so much it harms the baby? The act of vomiting cannot hurt your fetus, which is protected inside the uterus. If you get dehydrated or develop a metabolic imbalance, this can be unhealthy. As long as you can keep down liquids, you and your baby will generally do all right. Eat when you feel able. If you are unable to keep anything down, or if you notice potential signs of dehydration such as lightheadedness, or concentrated and/or infrequent urination, call your practitioner. Some women need brief hospital admission for intravenous fluids and anti-nausea medications if their condition becomes severe. This severe form of nausea and vomiting is called Hyperemesis Gravidarum. As with many symptoms of , remind yourself that this, too, shall pass, and you'll have a wonderful baby to show for it! TREATMENT OPTIONS, SHORT VERSION: Frequent small meals Hydrate throughout day [employer]ands wrist pressure point applicators Claudio root (powdered, in capsules) 250mg four times a day Vitamin B6 25 mg tablet three times a day Also may be taken with half a tablet of Unisom three times a day (Doxylamine 12.5 mg) If severe (weight loss, dehydration), call us and come in for IV hydration and possible medication in the form of injections. Prescription medications such as Phenergan, Compazine, Reglan documented in this encounter [facility] 05-06-2024 Note HNO ID: [id number] Author: NAYELI BOWMAN APRN.CNM Service: ? Author Type: Aircraft Tool Maker Type: Progress Notes Filed: 05/06/2024 16:47 Note Text: VIRTUAL VISIT PROGRESS NOTE This is a virtual visit using [employer] Video Visit. It required patient-provider interaction for the medical decision making as documented below. I have communicated my name and active licensure. The patient's identity and physical location were verified at the time of this visit. Either the patient or their legal manufacturers service representative has been informed of the risks and benefits of -- and alternatives to -- treatment through a remote evaluation and consents to proceed with the evaluation remotely. Herminia Gottlieb is a 28 year old female seen for nausea and vomiting. LMP 03/11/24 which puts gestational age around 8 weeks. Started last week with nausea and some emesis. Does not have any appetite. Able to keep some food and water down. Had Zofran at home and took some which helped her feel better. Interested in what medications she can take for relief. NOB scheduled next week. HISTORY REVIEWED (electronic chart updated): PAST MEDICAL HISTORY Diagnosis Date Appendicitis 01/2019 Cold sores Depression Previous suicide attempt Exercise-induced asthma PMH - PAST MEDICAL HISTORY OF 11/2004 normal color vision Varicella age 2 years PAST SURGICAL HISTORY Procedure Laterality Date EXTRACTION, ERUPTED TOOTH OR EXPOSED ROOT (ELEVATION AND/OR FORCEPS REMOVAL) LAPAROSCOPIC APPENDECTOMY 01/2019 FAMILY HISTORY Problem Relation Age of Onset other (mental health) Mother Stroke Father other (Epilepsy) Father Anxiety disorder Sister Depression Sister Asthma Sister Prematurity Sister other (one kidney) Sister Anxiety disorder Brother Stroke Maternal Grandfather Alzheimer's Disease Maternal Grandfather Heart Paternal Grandmother Stroke Paternal Grandmother Social History Tobacco Use Smoking status: Never Smokeless tobacco: Never Vaping Use Vaping status: Never Used Substance Use Topics Alcohol use: Yes Comment: rare Drug use: Never Current Outpatient Medications Medication Sig desvenlafaxine ER (PRISTIQ) 100 mg 24 hr tablet Take 1 tablet by mouth once daily. lamoTRIgine (LAMICTAL) 100 mg tablet Take 1 tablet by mouth once daily. ondansetron orally disintegrating (ZOFRAN ODT) 4 mg disintegrating tablet Take 1 tablet by mouth every 6 hours as needed for nausea/vomiting. cyclobenzaprine (FLEXERIL) 10 mg tablet Take 1 tablet by mouth three times a day as needed for muscle spasm. naproxen sodium (ALEVE) 220 mg tablet Take 1 tablet by mouth two times a day with meals. TAKE WITH FOOD vitamin b complex tab Take 1 tablet by mouth once daily. Biotin 1 mg tab Take 1 tablet by mouth. valACYclovir (VALTREX) 1 gram Take 1 tablet by mouth twice daily. For cold sore outbreak LORATADINE ORAL Take by mouth. fluticasone (FLONASE) 50 mcg/actuation nasal spray Use 2 Sprays in each nostril once daily. Rinse mouth after use. (Patient taking differently: Use 2 Sprays in each nostril once daily. Rinse mouth after use.... uses as needed) mbfjimjm-sioa-CG-calcium-mins 18 mg iron-400 mcg-500 mg Ca tab multivitamin (OPTIVITE P.M.T. ORAL) albuterol HFA (VENTOLIN HFA) 90 mcg/actuation inhaler Inhale 2 Puffs as instructed every 4 hours as needed for Wheezing/Shortness of Breath. No current facility-administered medications for this visit. ALLERGIES Allergen Reactions Seasonal Allergies Other: See Comments cough, sneeze,watery eyes REVIEW OF SYSTEMS: GENERAL: admits to fatigue GI: Nausea with some emesis PHYSICAL EXAMINATION: VIDEO EXAM: (if completed, performed via video enabled technology) GENERAL: alert and appropriate, in no distress and happy, smiling, interactive NEUROLOGIC: no obvious deficit ASSESSMENT/PLAN: 1. Nausea and vomiting during - ICD9: 643.90, ICD10: O21.9 (primary diagnosis) 2. 8 weeks gestation of - ICD9: V22.2, ICD10: Z3A.08 - Reviewed first line treatment of vitamin B6 and Unisom - Using Claudio root as well - Concerned over not being able to stomach vitamins- will try gummies - Able to eat small snacks and drink fluids - Patient to call office if unable to keep any food or liquids down for 24 hours - Support provided - RTO - already scheduled ODILON Calhoun APRN.CNM [facility] 05-06-2024 History of Presen t illness Narrative VIRTUAL VISIT PROGRESS NOTE This is a virtual visit using Consert Zoom Video Visit. It required patient-provider interaction for the medical decision making as documented below. I have communicated my name and active licensure. The patient's identity and physical location were verified at the time of this visit. Either the patient or their legal manufacturers service representative has been informed of the risks and benefits of -- and alternatives to -- treatment through a remote evaluation and consents to proceed with the evaluation remotely. Herminia Gottlieb is a 28 year old female seen for nausea and vomiting. LMP 03/11/24 which puts gestational age around 8 weeks. Started last week with nausea and some emesis. Does not have any appetite. Able to keep some food and water down. Had Zofran at home and took some which helped her feel better. Interested in what medications she can take for relief. NOB scheduled next week. HISTORY REVIEWED (electronic chart updated): PAST MEDICAL HISTORY Diagnosis Date Appendicitis 01/2019 Cold sores Depression Previous suicide attempt Exercise-induced asthma PMH - PAST MEDICAL HISTORY OF 11/2004 normal color vision Varicella age 2 years PAST SURGICAL HISTORY Procedure Laterality Date EXTRACTION, ERUPTED TOOTH OR EXPOSED ROOT (ELEVATION AND/OR FORCEPS REMOVAL) LAPAROSCOPIC APPENDECTOMY 01/2019 FAMILY HISTORY Problem Relation Age of Onset other (mental health) Mother Stroke Father other (Epilepsy) Father Anxiety disorder Sister Depression Sister Asthma Sister Prematurity Sister other (one kidney) Sister Anxiety disorder Brother Stroke Maternal Grandfather Alzheimer's Disease Maternal Grandfather Heart Paternal Grandmother Stroke Paternal Grandmother Social History Tobacco Use Smoking status: Never Smokeless tobacco: Never Vaping Use Vaping status: Never Used Substance Use Topics Alcohol use: Yes Comment: rare Drug use: Never Current Outpatient Medications Medication Sig desvenlafaxine ER (PRISTIQ) 100 mg 24 hr tablet Take 1 tablet by mouth once daily. lamoTRIgine (LAMICTAL) 100 mg tablet Take 1 tablet by mouth once daily. ondansetron orally disintegrating (ZOFRAN ODT) 4 mg disintegrating tablet Take 1 tablet by mouth every 6 hours as needed for nausea/vomiting. cyclobenzaprine (FLEXERIL) 10 mg tablet Take 1 tablet by mouth three times a day as needed for muscle spasm. naproxen sodium (ALEVE) 220 mg tablet Take 1 tablet by mouth two times a day with meals. TAKE WITH FOOD vitamin b complex tab Take 1 tablet by mouth once daily. Biotin 1 mg tab Take 1 tablet by mouth. valACYclovir (VALTREX) 1 gram Take 1 tablet by mouth twice daily. For cold sore outbreak LORATADINE ORAL Take by mouth. fluticasone (FLONASE) 50 mcg/actuation nasal spray Use 2 Sprays in each nostril once daily. Rinse mouth after use. (Patient taking differently: Use 2 Sprays in each nostril once daily. Rinse mouth after use.... uses as needed) ajpkfkuh-pzwd-RO-calcium-mins 18 mg iron-400 mcg-500 mg Ca tab multivitamin (OPTIVITE P.M.T. ORAL) albuterol HFA (VENTOLIN HFA) 90 mcg/actuation inhaler Inhale 2 Puffs as instructed every 4 hours as needed for Wheezing/Shortness of Breath. No current facility-administered medications for this visit. ALLERGIES Allergen Reactions Seasonal Allergies Other: See Comments cough, sneeze,watery eyes REVIEW OF SYSTEMS: GENERAL: admits to fatigue GI: Nausea with some emesis PHYSICAL EXAMINATION: VIDEO EXAM: (if completed, performed via video enabled technology) GENERAL: alert and appropriate, in no distress and happy, smiling, interactive NEUROLOGIC: no obvious deficit ASSESSMENT/PLAN: 1. Nausea and vomiting during - ICD9: 643.90, ICD10: O21.9 (primary diagnosis) 2. 8 weeks gestation of - ICD9: V22.2, ICD10: Z3A.08 - Reviewed first line treatment of vitamin B6 and Unisom - Using Claudio root as well - Concerned over not being able to stomach vitamins- will try gummies - Able to eat small snacks and drink fluids - Patient to call office if unable to keep any food or liquids down for 24 hours - Support provided - RTO - already scheduled NOB ODILON Rea APRN.CNM documented in this encounter [facility] 05-02-2024 Telephone encounter Note Patient calling regarding ,vomiting. Conferenced to [facility] [ ] to speak with provider senior market intelligence consultant for Emilee Rose CNM. [facility] 05-02-2024 Miscellaneous Notes Patient calling regarding ,vomiting. Conferenced to [facility] [ ] to speak with provider senior market intelligence consultant for Emilee Rose CNM. documented in this encounter [facility] 04-20-2024 Telephone encounter Note Noted appointment time and plan to place on waitlist. [facility] 04-20-2024 Miscellaneous Notes Noted appointment time and plan to place on waitlist. Call placed OV scheduled for 06/01/2024 @ 4:[address] on waiting list and watch for a 4 week visit open. Asked patient to call for a sooner visit if she has concerns. Mahi Hull LPN documented in this encounter [facility] 04-20-2024 Telephone encounter Note Call placed OV scheduled for 06/01/2024 @ 4:[address] on waiting list and watch for a 4 week visit open. Asked patient to call for a sooner visit if she has concerns. Mahi Hull LPN [facility] 03-29-2024 Instructions Dyan Corey APRN.DANICA - 03/29/2024 10:18 PM EST TREATMENT PLAN: Continue Lamictal at the same dose to address mood related symptoms. Continue Pristiq at the same dose to address anxiety symptoms. Utilize light therapy to help with seasonal mood changes. Continue individual psychotherapy every 2 weeks with her current provider. Follow up in 3 months or sooner if needed. Light Therapy for Insomnia and Mood Disorders Light therapy is a type of therapy designed to treat certain health conditions through exposure to artificial light. During a light therapy session, the person sits in front of a specialized device, known as a light therapy box, that emits bright light similar to natural sunlight. Light therapy is also known as light exposure therapy, circadian light therapy, bright light therapy, or phototherapy. Light therapy can be helpful for people with insomnia, circadian rhythm sleep disorders, and some types of depression. Light therapy is fairly straightforward. You sit in front of a special light box or visor, designed for light therapy, for a set amount of time each day. To avoid damage, the light should shine into your eyes indirectly, not directly. The light boxes intended for light therapy emit strong light that mimics outdoor light, but without the harmful UV rays. Typically, patients use a light box with a light intensity measuring 10,000 lux, positioned between 16 to 24 inches away from the face. At this intensity, sessions may only last 20 to 40 minutes, with longer sessions proving more beneficial. When used consistently and as recommended by a doctor, exposure to this light helps reset your circadian rhythm -- the technical term for your body clock. As a result, individuals undergoing light therapy are better able to fall asleep earlier at night, or sleep in later in the morning, depending on what they need. The Science Behind Light Therapy Your circadian rhythm dictates when you feel tired, when you feel alert, when you re hungry, and several other bodily processes. Scientists call it your circadian rhythm because it roughly follows the same 24-hour cycle as the sun (the word circadian comes from the Latin words for about and day ). By exposing your eyes to light similar to sunlight, light therapy helps realign your circadian rhythm with the patterns of the sun. As a result, you feel more tired in the evening, as sunlight lowers, and more awake in the morning when the sun rises. Specifically, during a light therapy session, your eyes retinal cells perceive the light from the light therapy box, affecting certain chemicals in your brain . These chemicals are melatonin and serotonin, and they re responsible for regulating your sleep-wake cycle. The perception of light delays your brain s melatonin production, waking you up and lifting your mood. Light is the strongest cue for training your circadian rhythm. Doctors and sleep specialists use it to develop the most appropriate light therapy treatment plan for their patients, including the time of day the light box should be used, and for how long at a time. Light therapy tends to be most effective when practiced daily in the morning, as many people experiencing circadian- or depression-related sleep issues are what researchers called phase-delayed . This refers to having an internal body clock that functions behind a normal circadian rhythm, so the person naturally starts to feel like sleeping and waking up at later times than what s typical. However, light therapy can be just as helpful for individuals who are phase-advanced and feel tired very early in the evening, such as someone who works an overnight power and recovery shift engineer. For these individuals, afternoon or evening light therapy can be helpful. For those experiencing a suicidal crisis: --call the National Suicide Prevention Lifeline at 988 (206.289.3687) --text the Crisis Text Line (text HOME to 477074) --call 911 and let them know you are having a mental health crisis or go to your nearest Emergency Room for stabilization. --You can also call Mobile Crisis at [phone]. -- You may call the department appointment line at [phone] to schedule your appointment. -- Please call my nurse at [phone] or send me a message in Consert with any questions or concerns between appointments. documented in this encounter [facility] 03-29-2024 Note HNO ID: [id number] Author: DYAN COREY APRN.DANICA Service: ? Author Type: Nurse Practitioner Type: Progress Notes Filed: 03/29/2024 22:19 Note Text: FOLLOW UP - PSYCHIATRIC PROGRESS NOTE PATIENT: Herminia Gottlieb DATE: March 29, 2024 Visit Type: Virtual Visit utilizing two-way audio and video for at least a portion of the visit. Consent for virtual visit obtained verbally. Confidentiality limitations with virtual visits reviewed with the patient and guardian, if present, who have accepted the risk verbally prior to proceeding with encounter. I have communicated my name and active licensure. The patient's identity and physical location were verified at the time of this visit. Either the patient or their legal manufacturers service representative has been informed of the risks and benefits of -- and alternatives to -- treatment through a remote evaluation and consents to proceed with the evaluation remotely. All information is from Patient report except when noted. This evaluation is NOT intended for forensic, disability or child custody purposes. CC: Presenting today for follow up regarding psychiatric medication management. HPI: Treatment Plan from Last Visit on 12/12/2023: TREATMENT PLAN: Continue Lamictal and Pristiq at the same dose. Consider a 25 mg increase in Lamictal if patient notices that she is struggling with depression again. Continue individual psychotherapy 2 times a week. Today Jennifer shares that I am doing pretty good. I feel like its been going pretty smoothly. The last couple days, she has noticed some concerns that are mostly work related. Had a meeting to discuss concerns with her fixed income portfolio manager. She didn't feel like she got a good response from her fixed income portfolio manager. [place] fixed income portfolio manager was defensive about that topic. Denies any side effect from Pristiq or Lamictal. 2 days post ovulation, her mood decreases slightly but then comes back up. She has noticed stress induced eczema. Noticed some dry eyes. Does not take Claritin currently. Sometimes she will use eye drops to manage the dryness. Overall she sleeps and eats well when she is not anxious. She does struggle with seasonal impact on her mood. Does take multivitamin and pre-melvin with Vitamin D. Open to trying light therapy. Continues to work with her therapist every 2 weeks. She thinks that they might be moving in the next couple months. This will one of the steps in expanding her family. Do not have a set plan on family planning yet. Has not needed to use the hydroxyzine. No side effects related to Lamictal. Has not tried hydroxyzine to manage anxiety or over thinking. Interval Progress: Slightly improved PATIENT DATA: Generalized Anxiety Disorder Scale (SUKHWINDER-7) 09/05/2023 12/10/2023 03/28/2024 SUKHWINDER - 7 SCORES Score 4 4 5 (0-4) minimal anxiety, (5-9) mild anxiety, (10-14) moderate anxiety, (15-21) severe anxiety Patient Health Questionnaire (PHQ-9) 12/10/2023 01/20/2024 03/28/2024 PHQ-9 Score 6 7 8 (0-4) minimal depression, (5-9) mild depression, (10-14) moderate depression, (15-19) moderately severe depression, (20-27) severe depression PAST MEDICAL HISTORY Diagnosis Date Appendicitis 01/2019 Cold sores Depression Previous suicide attempt Exercise-induced asthma PMH - PAST MEDICAL HISTORY OF 11/2004 normal color vision Varicella age 2 years PAST SURGICAL HISTORY Procedure Laterality Date EXTRACTION, ERUPTED TOOTH OR EXPOSED ROOT (ELEVATION AND/OR FORCEPS REMOVAL) LAPAROSCOPIC APPENDECTOMY 01/2019 ALLERGIES Allergen Reactions Seasonal Allergies Other: See Comments cough, sneeze,watery eyes Current Outpatient Medications on File Prior to Visit Medication Sig lamoTRIgine (LAMICTAL) 100 mg tablet Take 1 tablet by mouth once daily. desvenlafaxine ER (PRISTIQ) 100 mg 24 hr tablet Take 1 tablet by mouth once daily. ondansetron orally disintegrating (ZOFRAN ODT) 4 mg disintegrating tablet Take 1 tablet by mouth every 6 hours as needed for nausea/vomiting. cyclobenzaprine (FLEXERIL) 10 mg tablet Take 1 tablet by mouth three times a day as needed for muscle spasm. naproxen sodium (ALEVE) 220 mg tablet Take 1 tablet by mouth two times a day with meals. TAKE WITH FOOD vitamin b complex tab Take 1 tablet by mouth once daily. Biotin 1 mg tab Take 1 tablet by mouth. valACYclovir (VALTREX) 1 gram Take 1 tablet by mouth twice daily. For cold sore outbreak LORATADINE ORAL Take by mouth. fluticasone (FLONASE) 50 mcg/actuation nasal spray Use 2 Sprays in each nostril once daily. Rinse mouth after use. (Patient taking differently: Use 2 Sprays in each nostril once daily. Rinse mouth after use.... uses as needed) mqesmlwv-ssju-DB-calcium-mins 18 mg iron-400 mcg-500 mg Ca tab multivitamin (OPTIVITE P.M.T. ORAL) albuterol HFA (VENTOLIN HFA) 90 mcg/actuation inhaler Inhale 2 Puffs as instructed every 4 hours as needed for Wheezing/Shortness of Breath. No current facility-adm (more content not included)... [facility] 03-29-2024 History of Presen t illness Narrative Images from the original note were not included. FOLLOW UP - PSYCHIATRIC PROGRESS NOTE PATIENT: Herminia Hindsm DATE: March 29, 2024 Visit Type: Virtual Visit utilizing two-way audio and video for at least a portion of the visit. Consent for virtual visit obtained verbally. Confidentiality limitations with virtual visits reviewed with the patient and guardian, if present, who have accepted the risk verbally prior to proceeding with encounter. I have communicated my name and active licensure. The patient's identity and physical location were verified at the time of this visit. Either the patient or their legal manufacturers service representative has been informed of the risks and benefits of -- and alternatives to -- treatment through a remote evaluation and consents to proceed with the evaluation remotely. All information is from Patient report except when noted. This evaluation is NOT intended for forensic, disability or child custody purposes. CC: Presenting today for follow up regarding psychiatric medication management. HPI: Treatment Plan from Last Visit on 12/12/2023: TREATMENT PLAN: Continue Lamictal and Pristiq at the same dose. Consider a 25 mg increase in Lamictal if patient notices that she is struggling with depression again. Continue individual psychotherapy 2 times a week. Today Jennifer shares that I am doing pretty good. I feel like its been going pretty smoothly. The last couple days, she has noticed some concerns that are mostly work related. Had a meeting to discuss concerns with her fixed income portfolio manager. She didn't feel like she got a good response from her fixed income portfolio manager. [place] fixed income portfolio manager was defensive about that topic. Denies any side effect from Pristiq or Lamictal. 2 days post ovulation, her mood decreases slightly but then comes back up. She has noticed stress induced eczema. Noticed some dry eyes. Does not take Claritin currently. Sometimes she will use eye drops to manage the dryness. Overall she sleeps and eats well when she is not anxious. She does struggle with seasonal impact on her mood. Does take multivitamin and pre-melvin with Vitamin D. Open to trying light therapy. Continues to work with her therapist every 2 weeks. She thinks that they might be moving in the next couple months. This will one of the steps in expanding her family. Do not have a set plan on family planning yet. Has not needed to use the hydroxyzine. No side effects related to Lamictal. Has not tried hydroxyzine to manage anxiety or over thinking. Interval Progress: Slightly improved PATIENT DATA: Generalized Anxiety Disorder Scale (SUKHWINDER-7) 09/05/2023 12/10/2023 03/28/2024 SUKHWINDER - 7 SCORES Score 4 4 5 (0-4) minimal anxiety, (5-9) mild anxiety, (10-14) moderate anxiety, (15-21) severe anxiety Patient Health Questionnaire (PHQ-9) 12/10/2023 01/20/2024 03/28/2024 PHQ-9 Score 6 7 8 (0-4) minimal depression, (5-9) mild depression, (10-14) moderate depression, (15-19) moderately severe depression, (20-27) severe depression PAST MEDICAL HISTORY Diagnosis Date Appendicitis 01/2019 Cold sores Depression Previous suicide attempt Exercise-induced asthma PMH - PAST MEDICAL HISTORY OF 11/2004 normal color vision Varicella age 2 years PAST SURGICAL HISTORY Procedure Laterality Date EXTRACTION, ERUPTED TOOTH OR EXPOSED ROOT (ELEVATION AND/OR FORCEPS REMOVAL) LAPAROSCOPIC APPENDECTOMY 01/2019 ALLERGIES Allergen Reactions Seasonal Allergies Other: See Comments cough, sneeze,watery eyes Current Outpatient Medications on File Prior to Visit Medication Sig lamoTRIgine (LAMICTAL) 100 mg tablet Take 1 tablet by mouth once daily. desvenlafaxine ER (PRISTIQ) 100 mg 24 hr tablet Take 1 tablet by mouth once daily. ondansetron orally disintegrating (ZOFRAN ODT) 4 mg disintegrating tablet Take 1 tablet by mouth every 6 hours as needed for nausea/vomiting. cyclobenzaprine (FLEXERIL) 10 mg tablet Take 1 tablet by mouth three times a day as needed for muscle spasm. naproxen sodium (ALEVE) 220 mg tablet Take 1 tablet by mouth two times a day with meals. TAKE WITH FOOD vitamin b complex tab Take 1 tablet by mouth once daily. Biotin 1 mg tab Take 1 tablet by mouth. valACYclovir (VALTREX) 1 gram Take 1 tablet by mouth twice daily. For cold sore outbreak LORATADINE ORAL Take by mouth. fluticasone (FLONASE) 50 mcg/actuation nasal spray Use 2 Sprays in each nostril once daily. Rinse mouth after use. (Patient taking differently: Use 2 Sprays in each nostril once daily. Rinse mouth after use.... uses as needed) ixjvgunl-fioe-CQ-calcium-mins 18 mg iron-400 mcg-500 mg Ca tab multivitamin (OPTIVITE P.M.T. ORAL) albuterol HFA (VENTOLIN HFA) 90 mcg/actuation inhaler Inhale 2 Puffs as instructed every 4 hours as needed for Wheezing/Shortness of Breath. No current facility-administered medications on file prior to visit. ROS: See HPI PFSH: See HPI VITAL SIGNS: There were no vitals filed for this visit. Last 3 Encounter BP Readings: Date: BP: 01/27/2024 128/84 10/06/2023 120/72 08/08/2023 114/72 MENTAL STATUS EXAMINATION: Appearance: Well dressed, well groomed Behavior: Behaves appropriately during the encounter Social relatedness: Euthymic Speech/Language: The patient demonstrates appropriate tone, prosody, edith, phonetics, and syntax Mood: euthymic Affect: Full and appropriate to topic Orientation: Person, Place, Time and Situation Associations: Intact and linear Hallucinations: None Delusions: None Suicidal Ideation: No suicidal ideation, intent or plan. Homicidal Ideation: No homicidal ideation, intent or plan. Insight: Appropriate Judgment: Appropriate DATA REVIEWED: Psychiatric scales, Electronic medical record, Labs DIAGNOSIS: Mood disorder (hcc) (primary encounter diagnosis) Generalized anxiety disorder Encounter for long-term (current) use of medications Psychosocial stressors GAF: -80-71 If symptoms are present, they are transient and expectable reactions to psychosocial stressors TREATMENT PLAN: Continue Lamictal at the same dose to address mood related symptoms. Continue Pristiq at the same dose to address anxiety symptoms. Utilize light therapy to help with seasonal mood changes. Continue individual psychotherapy every 2 weeks with her current provider. Follow up in 3 months or sooner if needed. MEDICATION CHANGES: Current medication regimen unchanged. Prescriptions given - Reviewed Lamictal titration & risk of severe rash. Instructed to call PAIGE if this occurs. Risks and benefits of the medication, including any black box warnings, were discussed with the patient. Patient is aware to reach out with any questions, concerns, or worsening of symptoms prior to the next appointment. Patient educated on risks of substance use in combination with medications and advised that any substance use along with medications may alter their effectiveness. Follow Up: See Treatment Plan Medical Decision Making: Problems: Moderate: 2+ stable chronic illnesses Data: Unique source(s) for external note(s) reviewed: 3+ Unique test result(s) reviewed: 3+ Independent interpretation of test from other physician/QHCP Risk: Moderate: Moderate risk from testing/treatment and Drug management Medical Decision Making Level: 4 - Moderate ADD ON PSYCHOTHERAPY CODE : No SIGNATURE: Dyan Corey APRN.CNP PATIENT NAME: Herminia Pinon [facility] DATE: March 29, 2024 TIME: 4:32 PM documented in this encounter [facility] 03-11-2024 Telephone encounter Note Last: 12/12/23 TREATMENT PLAN: 1.Continue Lamictal and Pristiq at the same dose. 2.Consider a 25 mg increase in Lamictal if patient notices that she is struggling with depression again. 3.Continue individual psychotherapy 2 times a week. Next: 03/29/24 [facility] 03-11-2024 Miscellaneous Notes Last: 12/12/23 TREATMENT PLAN: 1.Continue Lamictal and Pristiq at the same dose. 2.Consider a 25 mg increase in Lamictal if patient notices that she is struggling with depression again. 3.Continue individual psychotherapy 2 times a week. Next: 03/29/24 documented in this encounter [facility] 01-27-2024 Instructions Светлана Srinivasan APRN.CNP - 01/27/2024 4:48 PM EDT Labs ordered. When convenient -- increase the miralax for a day or two to see if that helps. Let me know. documented in this encounter [facility] 01-27-2024 Note HNO ID: [id number] Author: СВЕТЛАНА SRINIVASAN APRN.DANICA Service: ? Author Type: Nurse Practitioner Type: Progress Notes Filed: 01/27/2024 18:11 Note Text: This is a 28 year old female who presents today with: Patient presents with: Acute Visit: GI issues x2-3 weeks; constipation, nausea, not sleeping well, abd pain; diarrhea 1x feels d/t colace HISTORY OF PRESENT ILLNESS: Herminia Gottlieb is a 28 year old female. Patient presents with: Acute Visit: GI issues x2-3 weeks; constipation, nausea, not sleeping well, abd pain; diarrhea 1x feels d/t colace Pt presents today with complaint of getting back. Started with severe bloating on 01/04. Had frequent urination and increased thirst initially, but that went away. Then became gassy. Stated spotting on 01/07 and then started with cycle on 01/09. Thought that sh may have been . + nausea. + burping. Constipation. Abdomen was tender. Rumbling/gurgling stomach. Started doing miralax. Did omeprazole in the morning and pepcid in the evening. Started fiber gummies twice daily. Somewhat normal stools with miralax. Diarrhea once after bisacodyl. Friday vomited into mouth. No hematochezia/melena. Very little, occasional heartburn/indigestion. Will feel like something is creeping up esophagus after she eats. Yesterday and today, felt a little off, and pressure in the eyes. Not dizzy, but notices if she stands up to quickly or turns to quickly. Tired and sleeping normal hours. Not having a hard time getting to sleep. Has been doing a capful of miralax daily. Two stools today. Stooled yesterday 4 times. One stool on Friday without taking miralax. Painful/cramping. Stools can be harder. Sometimes will need to strain. Normally will stool 2-3 times daily. PAST MEDICAL HISTORY: PAST MEDICAL HISTORY Diagnosis Date Appendicitis 01/2019 Cold sores Depression Previous suicide attempt Exercise-induced asthma PMH - PAST MEDICAL HISTORY OF 11/2004 normal color vision Varicella age 2 years PAST SURGICAL HISTORY Procedure Laterality Date EXTRACTION, ERUPTED TOOTH OR EXPOSED ROOT (ELEVATION AND/OR FORCEPS REMOVAL) LAPAROSCOPIC APPENDECTOMY 01/2019 ALLERGIES Seasonal Allergies MEDICATIONS Current Outpatient Medications Medication Sig lamoTRIgine (LAMICTAL) 100 mg tablet Take 1 tablet by mouth once daily. desvenlafaxine ER (PRISTIQ) 100 mg 24 hr tablet Take 1 tablet by mouth once daily. ondansetron orally disintegrating (ZOFRAN ODT) 4 mg disintegrating tablet Take 1 tablet by mouth every 6 hours as needed for nausea/vomiting. cyclobenzaprine (FLEXERIL) 10 mg tablet Take 1 tablet by mouth three times a day as needed for muscle spasm. naproxen sodium (ALEVE) 220 mg tablet Take 1 tablet by mouth two times a day with meals. TAKE WITH FOOD vitamin b complex tab Take 1 tablet by mouth once daily. Biotin 1 mg tab Take 1 tablet by mouth. valACYclovir (VALTREX) 1 gram Take 1 tablet by mouth twice daily. For cold sore outbreak LORATADINE ORAL Take by mouth. fluticasone (FLONASE) 50 mcg/actuation nasal spray Use 2 Sprays in each nostril once daily. Rinse mouth after use. (Patient taking differently: Use 2 Sprays in each nostril once daily. Rinse mouth after use.... uses as needed) jstitumw-iyno-XP-calcium-mins 18 mg iron-400 mcg-500 mg Ca tab multivitamin (OPTIVITE P.M.T. ORAL) albuterol HFA (VENTOLIN HFA) 90 mcg/actuation inhaler Inhale 2 Puffs as instructed every 4 hours as needed for Wheezing/Shortness of Breath. No current facility-administered medications for this visit. FAMILY HISTORY Problem Relation Age of Onset other (mental health) Mother Stroke Father other (Epilepsy) Father Anxiety disorder Sister Depression Sister Asthma Sister Prematurity Sister other (one kidney) Sister Anxiety disorder Brother Stroke Maternal Grandfather Alzheimer's Disease Maternal Grandfather Heart Paternal Grandmother Stroke Paternal Grandmother Social History Tobacco Use Smoking status: Never Smokeless tobacco: Never Vaping Use Vaping status: Never Used Substance Use Topics Alcohol use: Yes Comment: rare Drug use: Never EXAM: BP 128/84 Pulse 71 Resp 16 LMP 07/27/2023 (Exact Date) SpO2 99% PHYSICAL EXAM: General Appearance: Well appearing, alert, in no acute distress, well-hydrated, well nourished.. Skin: Skin color, texture, turgor normal, no suspicious rashes or lesions. Head: Normocephalic, no masses, lesions, tenderness or abnormalities. Eyes: Anicteric sclera. Extraocular movements are intact. . Lungs: Lungs clear to auscultation. No wheezing, rhonchi, rales.. Heart: RRR without murmur, gallop, or rubs. No ectopy. Abdomen: Abdomen soft, generalized tenderness -- mostly notably in the lower quads. Bowel sounds hypoactive. No masses, organomegaly. Neurologic: Gait normal. ASSESSMENT/PLAN: 1. Acute constipation - ICD9: 564.00, ICD10: K59.00 Increase miralax to (more content not included)... [facility] 01-27-2024 History of Presen t illness Narrative This is a 28 year old female who presents today with: Patient presents with: Acute Visit: GI issues x2-3 weeks; constipation, nausea, not sleeping well, abd pain; diarrhea 1x feels d/t colace HISTORY OF PRESENT ILLNESS: Herminia Gottlieb is a 28 year old female. Patient presents with: Acute Visit: GI issues x2-3 weeks; constipation, nausea, not sleeping well, abd pain; diarrhea 1x feels d/t colace Pt presents today with complaint of getting back. Started with severe bloating on 01/04. Had frequent urination and increased thirst initially, but that went away. Then became gassy. Stated spotting on 01/07 and then started with cycle on 01/09. Thought that sh may have been . + nausea. + burping. Constipation. Abdomen was tender. Rumbling/gurgling stomach. Started doing miralax. Did omeprazole in the morning and pepcid in the evening. Started fiber gummies twice daily. Somewhat normal stools with miralax. Diarrhea once after bisacodyl. Friday vomited into mouth. No hematochezia/melena. Very little, occasional heartburn/indigestion. Will feel like something is creeping up esophagus after she eats. Yesterday and today, felt a little off, and pressure in the eyes. Not dizzy, but notices if she stands up to quickly or turns to quickly. Tired and sleeping normal hours. Not having a hard time getting to sleep. Has been doing a capful of miralax daily. Two stools today. Stooled yesterday 4 times. One stool on Friday without taking miralax. Painful/cramping. Stools can be harder. Sometimes will need to strain. Normally will stool 2-3 times daily. PAST MEDICAL HISTORY: PAST MEDICAL HISTORY Diagnosis Date Appendicitis 01/2019 Cold sores Depression Previous suicide attempt Exercise-induced asthma PMH - PAST MEDICAL HISTORY OF 11/2004 normal color vision Varicella age 2 years PAST SURGICAL HISTORY Procedure Laterality Date EXTRACTION, ERUPTED TOOTH OR EXPOSED ROOT (ELEVATION AND/OR FORCEPS REMOVAL) LAPAROSCOPIC APPENDECTOMY 01/2019 ALLERGIES Seasonal Allergies MEDICATIONS Current Outpatient Medications Medication Sig lamoTRIgine (LAMICTAL) 100 mg tablet Take 1 tablet by mouth once daily. desvenlafaxine ER (PRISTIQ) 100 mg 24 hr tablet Take 1 tablet by mouth once daily. ondansetron orally disintegrating (ZOFRAN ODT) 4 mg disintegrating tablet Take 1 tablet by mouth every 6 hours as needed for nausea/vomiting. cyclobenzaprine (FLEXERIL) 10 mg tablet Take 1 tablet by mouth three times a day as needed for muscle spasm. naproxen sodium (ALEVE) 220 mg tablet Take 1 tablet by mouth two times a day with meals. TAKE WITH FOOD vitamin b complex tab Take 1 tablet by mouth once daily. Biotin 1 mg tab Take 1 tablet by mouth. valACYclovir (VALTREX) 1 gram Take 1 tablet by mouth twice daily. For cold sore outbreak LORATADINE ORAL Take by mouth. fluticasone (FLONASE) 50 mcg/actuation nasal spray Use 2 Sprays in each nostril once daily. Rinse mouth after use. (Patient taking differently: Use 2 Sprays in each nostril once daily. Rinse mouth after use.... uses as needed) awcrjtkn-xrxo-OL-calcium-mins 18 mg iron-400 mcg-500 mg Ca tab multivitamin (OPTIVITE P.M.T. ORAL) albuterol HFA (VENTOLIN HFA) 90 mcg/actuation inhaler Inhale 2 Puffs as instructed every 4 hours as needed for Wheezing/Shortness of Breath. No current facility-administered medications for this visit. FAMILY HISTORY Problem Relation Age of Onset other (mental health) Mother Stroke Father other (Epilepsy) Father Anxiety disorder Sister Depression Sister Asthma Sister Prematurity Sister other (one kidney) Sister Anxiety disorder Brother Stroke Maternal Grandfather Alzheimer's Disease Maternal Grandfather Heart Paternal Grandmother Stroke Paternal Grandmother Social History Tobacco Use Smoking status: Never Smokeless tobacco: Never Vaping Use Vaping status: Never Used Substance Use Topics Alcohol use: Yes Comment: rare Drug use: Never EXAM: BP 128/84 Pulse 71 Resp 16 LMP 07/27/2023 (Exact Date) SpO2 99% PHYSICAL EXAM: General Appearance: Well appearing, alert, in no acute distress, well-hydrated, well nourished.. Skin: Skin color, texture, turgor normal, no suspicious rashes or lesions. Head: Normocephalic, no masses, lesions, tenderness or abnormalities. Eyes: Anicteric sclera. Extraocular movements are intact. . Lungs: Lungs clear to auscultation. No wheezing, rhonchi, rales.. Heart: RRR without murmur, gallop, or rubs. No ectopy. Abdomen: Abdomen soft, generalized tenderness -- mostly notably in the lower quads. Bowel sounds hypoactive. No masses, organomegaly. Neurologic: Gait normal. ASSESSMENT/PLAN: 1. Acute constipation - ICD9: 564.00, ICD10: K59.00 Increase miralax to 2-3 times daily to clean out. Increase water. Get labs. - COMPLETE BLOOD COUNT AND DIFFERENTIAL - COMPREHENSIVE METABOLIC PANEL - THYROID STIMULATING HORMONE Update provider if no better/worsening. Discussed treatment plan and patient voices understanding. Patient's questions answered appropriately. Medications and potential side effects were discussed and patient voices understanding. Return to the office as scheduled or as needed for worsening/no improvement. Светлана Srinivasan APRN.PATTERN MARKING SUPERVISOR documented in this encounter [facility] 12-15-2023 Telephone encounter Note Last: 12/12/23 TREATMENT PLAN: 1.Continue Lamictal and Pristiq at the same dose. 2.Consider a 25 mg increase in Lamictal if patient notices that she is struggling with depression again. 3.Continue individual psychotherapy 2 times a week. Follow up in 3 months Next: NA [facility] 12-15-2023 Miscellaneous Notes Last: 12/12/23 TREATMENT PLAN: 1.Continue Lamictal and Pristiq at the same dose. 2.Consider a 25 mg increase in Lamictal if patient notices that she is struggling with depression again. 3.Continue individual psychotherapy 2 times a week. Follow up in 3 months Next: NA documented in this encounter [facility] 12-12-2023 Instructions Dyan Corey APRN.CNP - 12/12/2023 4:55 PM EDT Ken Hope, It was good to talk with you today. Below is a summary of the plan that we discussed during your appointment for reference. Of course, if you have any questions or concerns do not hesitate to reach out to me via a message or call. Dyan Chand APRN.CNP PLAN AND FOLLOW UP: Continue Lamictal and Pristiq at the same dose. Consider a 25 mg increase in Lamictal if patient notices that she is struggling with depression again. Continue individual psychotherapy 2 times a week. For those experiencing a suicidal crisis: --call the National Suicide Prevention Lifeline at 988 (120-123-2693) --text the Crisis Text Line (text HOME to 051288) --call 911 and let them know you are having a mental health crisis or go to your nearest Emergency Room for stabilization. --You can also call Mobile Crisis at [phone]. Next appointment: --Schedule in 3 months or sooner if needed -- You may call the department appointment line at [phone] to schedule your appointment. -- Please call my nurse at [phone] or send me a message in Consert with any questions or concerns between appointments. documented in this encounter [facility] 12-12-2023 Note HNO ID: [id number] Author: DYAN COREY APRN.CNP Service: ? Author Type: Nurse Practitioner Type: Progress Notes Filed: 12/12/2023 16:56 Note Text: FOLLOW UP - PSYCHIATRIC PROGRESS NOTE PATIENT: Herminia Pinon Bull DATE: December 12, 2023 Visit Type: Virtual Visit utilizing two-way audio and video for at least a portion of the visit. Consent for virtual visit obtained verbally. Confidentiality limitations with virtual visits reviewed with the patient and guardian, if present, who have accepted the risk verbally prior to proceeding with encounter. I have communicated my name and active licensure. The patient's identity and physical location were verified at the time of this visit. Either the patient or their legal manufacturers service representative has been informed of the risks and benefits of -- and alternatives to -- treatment through a remote evaluation and consents to proceed with the evaluation remotely. All information is from Patient report except when noted. This evaluation is NOT intended for forensic, disability or child custody purposes. CC: Presenting today for follow up regarding psychiatric medication management. HPI: Treatment Plan from Last Visit on 09/05/2023: Gradually increase Lamictal dose to address depressive symptoms. Continue Pristiq at the same dose. Continue individual psychotherapy. Today Herminia shares that I am doing good. She got through a review at work. Things are better. She is feeling less anxious. She is still cautious but her boss has been encouraging about the progress that she has made. Plans on continuing longer term in this role. Tolerating the 100 mg dose of Lamictal well. She denies any side effects. Her mood is more stable and she has more energy. I am a little happier than I have been before. She is very encouraged by this and has noted it to be a gradual change. In the last 2 weeks her mood has been more steady. Still continues to take that Pristiq and denies any side effects from it. Still engaged in therapy every 2 weeks. It is going well. They are making progress. Therapist has noted that patient has been able to think more clearly and making connections better. Shares that last week when she was ovulating, she noticed that she had more energy and was in a better mood. Don't know if it was manic, to me it feels like the old Jennifer. Discussed the role of progesterone during the ovulation period and improvement in mood related to that. Denies any changes in her physical health issues. Interval Progress: Improved PATIENT DATA: Generalized Anxiety Disorder Scale (SUKHWINDER-7) 07/07/2023 09/05/2023 12/10/2023 SUKHWINDER - 7 SCORES Score 5 4 4 (0-4) minimal anxiety, (5-9) mild anxiety, (10-14) moderate anxiety, (15-21) severe anxiety Patient Health Questionnaire (PHQ-9) 07/07/2023 09/05/2023 12/10/2023 PHQ-9 Score 10 7 6 (0-4) minimal depression, (5-9) mild depression, (10-14) moderate depression, (15-19) moderately severe depression, (20-27) severe depression PAST MEDICAL HISTORY 01/2019: Appendicitis No date: Cold sores No date: Depression Comment: Previous suicide attempt No date: Exercise-induced asthma 11/2004: PMH - PAST MEDICAL HISTORY OF Comment: normal color vision No date: Varicella Comment: age 2 years PAST SURGICAL HISTORY No date: EXTRACTION, ERUPTED TOOTH OR EXPOSED ROOT (ELEVATION AND/OR FORCEPS REMOVAL) 01/2019: LAPAROSCOPIC APPENDECTOMY ALLERGIES Allergen Reactions Seasonal Allergies Other: See Comments cough, sneeze,watery eyes Current Outpatient Medications on File Prior to Visit Medication Sig ondansetron orally disintegrating (ZOFRAN ODT) 4 mg disintegrating tablet Take 1 tablet by mouth every 6 hours as needed for nausea/vomiting. cyclobenzaprine (FLEXERIL) 10 mg tablet Take 1 tablet by mouth three times a day as needed for muscle spasm. naproxen sodium (ALEVE) 220 mg tablet Take 1 tablet by mouth two times a day with meals. TAKE WITH FOOD vitamin b complex tab Take 1 tablet by mouth once daily. Biotin 1 mg tab Take 1 tablet by mouth. valACYclovir (VALTREX) 1 gram Take 1 tablet by mouth twice daily. For cold sore outbreak LORATADINE ORAL Take by mouth. fluticasone (FLONASE) 50 mcg/actuation nasal spray Use 2 Sprays in each nostril once daily. Rinse mouth after use. (Patient taking differently: Use 2 Sprays in each nostril once daily. Rinse mouth after use.... uses as needed) pndrovwh-wrmh-CR-calcium-mins 18 mg iron-400 mcg-500 mg Ca tab multivitamin (OPTIVITE P.M.T. ORAL) albuterol HFA (VENTOLIN HFA) 90 mcg/actuation inhaler Inhale 2 Puffs as instructed every 4 hours as needed for Wheezing/Shortness of Breath. lamoTRIgine (LAMICTAL) 25 mg tablet Take 3.5 tablets by mouth once daily. lamoTRIgine (LAMICTAL) 100 mg tablet Take 1 tablet by mouth once daily. Start after completing 30 days of 3.5 tablets of 25 mg Lamictal. desvenlafaxine ER (PRISTIQ) 100 mg 24 hr tablet T (more content not included)... [facility] 12-12-2023 History of Presen t illness Narrative Images from the original note were not included. FOLLOW UP - PSYCHIATRIC PROGRESS NOTE PATIENT: Herminia Pinon Bull DATE: December 12, 2023 Visit Type: Virtual Visit utilizing two-way audio and video for at least a portion of the visit. Consent for virtual visit obtained verbally. Confidentiality limitations with virtual visits reviewed with the patient and guardian, if present, who have accepted the risk verbally prior to proceeding with encounter. I have communicated my name and active licensure. The patient's identity and physical location were verified at the time of this visit. Either the patient or their legal manufacturers service representative has been informed of the risks and benefits of -- and alternatives to -- treatment through a remote evaluation and consents to proceed with the evaluation remotely. All information is from Patient report except when noted. This evaluation is NOT intended for forensic, disability or child custody purposes. CC: Presenting today for follow up regarding psychiatric medication management. HPI: Treatment Plan from Last Visit on 09/05/2023: Gradually increase Lamictal dose to address depressive symptoms. Continue Pristiq at the same dose. Continue individual psychotherapy. Today Herminia shares that I am doing good. She got through a review at work. Things are better. She is feeling less anxious. She is still cautious but her boss has been encouraging about the progress that she has made. Plans on continuing longer term in this role. Tolerating the 100 mg dose of Lamictal well. She denies any side effects. Her mood is more stable and she has more energy. I am a little happier than I have been before. She is very encouraged by this and has noted it to be a gradual change. In the last 2 weeks her mood has been more steady. Still continues to take that Pristiq and denies any side effects from it. Still engaged in therapy every 2 weeks. It is going well. They are making progress. Therapist has noted that patient has been able to think more clearly and making connections better. Shares that last week when she was ovulating, she noticed that she had more energy and was in a better mood. Don't know if it was manic, to me it feels like the old Jennifer. Discussed the role of progesterone during the ovulation period and improvement in mood related to that. Denies any changes in her physical health issues. Interval Progress: Improved PATIENT DATA: Generalized Anxiety Disorder Scale (SUKHWINDER-7) 07/07/2023 09/05/2023 12/10/2023 SUKHWINDER - 7 SCORES Score 5 4 4 (0-4) minimal anxiety, (5-9) mild anxiety, (10-14) moderate anxiety, (15-21) severe anxiety Patient Health Questionnaire (PHQ-9) 07/07/2023 09/05/2023 12/10/2023 PHQ-9 Score 10 7 6 (0-4) minimal depression, (5-9) mild depression, (10-14) moderate depression, (15-19) moderately severe depression, (20-27) severe depression PAST MEDICAL HISTORY 01/2019: Appendicitis No date: Cold sores No date: Depression Comment: Previous suicide attempt No date: Exercise-induced asthma 11/2004: PMH - PAST MEDICAL HISTORY OF Comment: normal color vision No date: Varicella Comment: age 2 years PAST SURGICAL HISTORY No date: EXTRACTION, ERUPTED TOOTH OR EXPOSED ROOT (ELEVATION AND/OR FORCEPS REMOVAL) 01/2019: LAPAROSCOPIC APPENDECTOMY ALLERGIES Allergen Reactions Seasonal Allergies Other: See Comments cough, sneeze,watery eyes Current Outpatient Medications on File Prior to Visit Medication Sig ondansetron orally disintegrating (ZOFRAN ODT) 4 mg disintegrating tablet Take 1 tablet by mouth every 6 hours as needed for nausea/vomiting. cyclobenzaprine (FLEXERIL) 10 mg tablet Take 1 tablet by mouth three times a day as needed for muscle spasm. naproxen sodium (ALEVE) 220 mg tablet Take 1 tablet by mouth two times a day with meals. TAKE WITH FOOD vitamin b complex tab Take 1 tablet by mouth once daily. Biotin 1 mg tab Take 1 tablet by mouth. valACYclovir (VALTREX) 1 gram Take 1 tablet by mouth twice daily. For cold sore outbreak LORATADINE ORAL Take by mouth. fluticasone (FLONASE) 50 mcg/actuation nasal spray Use 2 Sprays in each nostril once daily. Rinse mouth after use. (Patient taking differently: Use 2 Sprays in each nostril once daily. Rinse mouth after use.... uses as needed) ehvmzeiq-fbef-NI-calcium-mins 18 mg iron-400 mcg-500 mg Ca tab multivitamin (OPTIVITE P.M.T. ORAL) albuterol HFA (VENTOLIN HFA) 90 mcg/actuation inhaler Inhale 2 Puffs as instructed every 4 hours as needed for Wheezing/Shortness of Breath. lamoTRIgine (LAMICTAL) 25 mg tablet Take 3.5 tablets by mouth once daily. lamoTRIgine (LAMICTAL) 100 mg tablet Take 1 tablet by mouth once daily. Start after completing 30 days of 3.5 tablets of 25 mg Lamictal. desvenlafaxine ER (PRISTIQ) 100 mg 24 hr tablet Take 1 tablet by mouth once daily. No current facility-administered medications on file prior to visit. ROS: See HPI PFSH: See HPI VITAL SIGNS: There were no vitals filed for this visit. Last 3 Encounter BP Readings: Date: BP: 10/06/2023 120/72 08/08/2023 114/72 06/16/2023 100/72 MENTAL STATUS EXAMINATION: Appearance: Well dressed, well groomed Behavior: Behaves appropriately during the encounter Social relatedness: Euthymic Speech/Language: The patient demonstrates appropriate tone, prosody, edith, phonetics, and syntax Mood: euthymic Affect: Full and appropriate to topic Orientation: Person, Place, Time and Situation Associations: Intact and linear Hallucinations: None Delusions: None Suicidal Ideation: No suicidal ideation, intent or plan. Homicidal Ideation: No homicidal ideation, intent or plan. Insight: Appropriate Judgment: Appropriate DATA REVIEWED: Psychiatric scales, Electronic medical record, Labs DIAGNOSIS: Mood disorder (hcc) (primary encounter diagnosis) Generalized anxiety disorder GAF: -80-71 If symptoms are present, they are transient and expectable reactions to psychosocial stressors TREATMENT PLAN: Continue Lamictal and Pristiq at the same dose. Consider a 25 mg increase in Lamictal if patient notices that she is struggling with depression again. Continue individual psychotherapy 2 times a week. MEDICATION CHANGES: - Reviewed Lamictal titration & risk of severe rash. Instructed to call PAIGE if this occurs. Risks and benefits of the medication, including any black box warnings, were discussed with the patient. Patient is aware to reach out with any questions, concerns, or worsening of symptoms prior to the next appointment. Patient educated on risks of substance use in combination with medications and advised that any substance use along with medications may alter their effectiveness. Follow Up: 3 months I spent a total of 30 minutes on the date of the service which included preparing to see the patient, [id number] patient care, completing clinical documentation, and counseling and educating the patient/family/caregiver, ordering medications/labs. ADD ON PSYCHOTHERAPY CODE : No SIGNATURE: Dyan Corey APRN.CNP PATIENT NAME: Herminia Pinno [facility] DATE: December 12, 2023 TIME: 4:32 PM documented in this encounter [facility] 11-12-2023 Telephone encounter Note Called Pt to schedule appt and get more info about her toes. She opted to wait to schedule with us and said if she could not find anything sooner someplace else, she would call back. She does not currently have an infection. Ramu Varner November 12, 2023 4:52 PM [facility] 11-12-2023 Miscellaneous Notes Called Pt to schedule appt and get more info about her toes. She opted to wait to schedule with us and said if she could not find anything sooner someplace else, she would call back. She does not currently have an infection. Ramu Varner November 12, 2023 4:52 PM ----- Message from Keri Almendarez Manager [employer] sent at 11/12/2023 7:44 AM EDT ----- Regarding: FW: Orthopedics / Foot: Ingrown Toenail (With Infection) / Unable To Schedule Dx Please schedule with Dr Kapadia ----- Message ----- From: Ethel Boyer Sent: 11/11/2023 4:38 PM EDT To: Ortho Triage Pool Subject: Orthopedics / Foot: Ingrown Toenail (With I# Subject Line FormaOrthopedics / Foot: Ingrown Toenail (With Infection) / Unable To Schedule Dx Patient has been identified by name and Date of (Y/N): y Patient: Herminia Pinon Bull Date of : 1995 Previous Provider Seen: n/a Body Part(s) Identified: jaimee feet Diagnosis/Reason For Visit: infected ingrown toenails Reason for the call/escalation: unable to schedule dx looking for latest of the day appt If reason for call/escalation is discharge from ED/ER or Hospital, which facility was the patient seen at: n/a Was an appointment scheduled (Y/N): n Person calling if other than patient: no Return call to if other than patient: no Best contact number: [phone] Thank you, Ethel Boyer November 11, 2023 4:36 PM documented in this encounter [facility] 11-12-2023 Telephone encounter Note ----- Message from Keri Almendarez Manager [employer] sent at 11/12/2023 7:44 AM EDT ----- Regarding: FW: Orthopedics / Foot: Ingrown Toenail (With Infection) / Unable To Schedule Dx Please schedule with Dr Kapadia ----- Message ----- From: Ethel Boyer Sent: 11/11/2023 4:38 PM EDT To: Ortho Triage Pool Subject: Orthopedics / Foot: Ingrown Toenail (With I# Subject Line FormaOrthopedics / Foot: Ingrown Toenail (With Infection) / Unable To Schedule Dx Patient has been identified by name and Date of (Y/N): y Patient: Herminia Pinon Bull Date of : 1995 Previous Provider Seen: n/a Body Part(s) Identified: jaimee feet Diagnosis/Reason For Visit: infected ingrown toenails Reason for the call/escalation: unable to schedule dx looking for latest of the day appt If reason for call/escalation is discharge from ED/ER or Hospital, which facility was the patient seen at: n/a Was an appointment scheduled (Y/N): n Person calling if other than patient: no Return call to if other than patient: no Best contact number: [phone] Thank you, Ethel Boyer November 11, 2023 4:36 PM [facility] 10-07-2023 Telephone encounter Note Pt advised she would need an appt to have the shoulder evaluated. Lainey Valdes MA [facility] 10-07-2023 Miscellaneous Notes Pt advised she would need an appt to have the shoulder evaluated. Lainey Valdes MA documented in this encounter [facility] 10-06-2023 Instructions Светлана Srinivasan APRN.DANICA - 10/06/2023 6:55 PM EDT Check w/ insurance re: the EMG. Cock-up splints to sleep. Tennis elbow splint. Moist heat/ice to the back. Massage. Drop of mineral oil to the ears a few times/week. documented in this encounter [facility] 10-06-2023 History of Presen t illness Narrative This is a 28 year old female who presents today with: Patient presents with: Follow Up: Carpal tunnel Itching: Left hand Ear Problem: Gets hot and red to the outer ears HISTORY OF PRESENT ILLNESS: Herminia Gottlieb is a 28 year old female. Patient presents with: Follow Up: Carpal tunnel Itching: Left hand Ear Problem: Gets hot and red to the outer ears Pt presents today with complaint of: Ear flushing. Started last week. Initially thought was r/t heat. But then happened again when she was just sitting talking to a friend. Will get red and warm. Can be unilateral or bilateral. Will last about 15-30 minutes. Hasn't happened yesterday/today. Caffeine intake hasn't changed. No recent spicy food. No recent sickness. Periods have been normal. Has been doing the aleve more. Titrating the lamictal up. Refers that left hand has been having some burning. Some tenderness of the left medial elbow. Does do a lot of repetitive movements with the left hand at work. She is right-handed. Thinks that she pulled a muscle in the lower back. Tender in the center. PAST MEDICAL HISTORY: PAST MEDICAL HISTORY Diagnosis Date Appendicitis 01/2019 Cold sores Depression Previous suicide attempt Exercise-induced asthma PMH - PAST MEDICAL HISTORY OF 11/2004 normal color vision Varicella age 2 years PAST SURGICAL HISTORY Procedure Laterality Date EXTRACTION, ERUPTED TOOTH OR EXPOSED ROOT (ELEVATION AND/OR FORCEPS REMOVAL) LAPAROSCOPIC APPENDECTOMY 01/2019 ALLERGIES Seasonal Allergies MEDICATIONS Current Outpatient Medications Medication Sig lamoTRIgine (LAMICTAL) 25 mg tablet Take 3.5 tablets by mouth once daily. lamoTRIgine (LAMICTAL) 100 mg tablet Take 1 tablet by mouth once daily. Start after completing 30 days of 3.5 tablets of 25 mg Lamictal. desvenlafaxine ER (PRISTIQ) 100 mg 24 hr tablet Take 1 tablet by mouth once daily. ondansetron orally disintegrating (ZOFRAN ODT) 4 mg disintegrating tablet Take 1 tablet by mouth every 6 hours as needed for nausea/vomiting. cyclobenzaprine (FLEXERIL) 10 mg tablet Take 1 tablet by mouth three times a day as needed for muscle spasm. naproxen sodium (ALEVE) 220 mg tablet Take 1 tablet by mouth two times a day with meals. TAKE WITH FOOD vitamin b complex tab Take 1 tablet by mouth once daily. Biotin 1 mg tab Take 1 tablet by mouth. valACYclovir (VALTREX) 1 gram Take 1 tablet by mouth twice daily. For cold sore outbreak LORATADINE ORAL Take by mouth. fluticasone (FLONASE) 50 mcg/actuation nasal spray Use 2 Sprays in each nostril once daily. Rinse mouth after use. (Patient taking differently: Use 2 Sprays in each nostril once daily. Rinse mouth after use.... uses as needed) lpqimeot-srfc-ZT-calcium-mins 18 mg iron-400 mcg-500 mg Ca tab multivitamin (OPTIVITE P.M.T. ORAL) albuterol HFA (VENTOLIN HFA) 90 mcg/actuation inhaler Inhale 2 Puffs as instructed every 4 hours as needed for Wheezing/Shortness of Breath. No current facility-administered medications for this visit. FAMILY HISTORY Problem Relation Age of Onset other (mental health) Mother Stroke Father other (Epilepsy) Father Anxiety disorder Sister Depression Sister Asthma Sister Prematurity Sister other (one kidney) Sister Anxiety disorder Brother Stroke Maternal Grandfather Alzheimer's Disease Maternal Grandfather Heart Paternal Grandmother Stroke Paternal Grandmother Social History Tobacco Use Smoking status: Never Smokeless tobacco: Never Vaping Use Vaping Use: Never used Substance Use Topics Alcohol use: Yes Comment: rare Drug use: Never EXAM: BP 120/72 Pulse 98 Resp 16 Wt 94.8 kg (209 lb) LMP 07/27/2023 (Exact Date) SpO2 98% BMI 35.87 kg/m PHYSICAL EXAM: General Appearance: Well appearing, alert, in no acute distress, well-hydrated, well nourished.. Skin: Skin color, texture, turgor normal, no suspicious rashes or lesions. Head: Normocephalic, no masses, lesions, tenderness or abnormalities. Eyes: Anicteric sclera. Pupils are equally round and reactive to light. Extraocular movements are intact. . Ears: Positive findings: R TM: normal, L TM: normal, small amount of scaling skin in the bilateral ears. Back:no pain to palpation of vertebrae, good flexion and extension, good range of motion, + tight paralumbar muscles bilat -- R>L. Lungs: Lungs clear to auscultation. No wheezing, rhonchi, rales.. Heart: RRR without murmur, gallop, or rubs. No ectopy. Neurologic: Gait normal. Ext: pain over the left medial epicondyle. ASSESSMENT/PLAN: 1. Dryness of both ear canals - ICD9: 380.89, ICD10: H61.893 (primary diagnosis) Start using a drop of mineral oil in the ears a few times weekly. 2. Ear pain, bilateral - ICD9: 388.70, ICD10: H92.03 Having some intermittent episodes of ear flushing/burning. May be related to the dry ears. Denies any dietary triggers. May be hormonal. Continue to monitor. 3. Medial epicondylitis of left elbow - ICD9: 726.31, ICD10: M77.02 Elbow exercises. Cock-up splint to sleep. Tennis elbow splint to medial aspect. Written exercises given. 4. Back strain, subsequent encounter - ICD9: V58.89, 847.9, ICD10: S39.012D Moist heat/ice. Massage. Discussed treatment plan and patient voices understanding. Patient's questions answered appropriately. Medications and potential side effects were discussed and patient voices understanding. Return to the office as scheduled or as needed for worsening/no improvement. Светлана Srinivasan APRN.PATTERN MARKING SUPERVISOR documented in this encounter [facility] 09-05-2023 History of Presen t illness Narrative Images from the original note were not included. FOLLOW UP - PSYCHIATRIC PROGRESS NOTE PATIENT: Herminia Gottlieb DATE: September 05, 2023 Visit Type: Virtual Visit utilizing two-way audio and video for at least a portion of the visit. Consent for virtual visit obtained verbally. Confidentiality limitations with virtual visits reviewed with the patient and guardian, if present, who have accepted the risk verbally prior to proceeding with encounter. I have communicated my name and active licensure. The patient's identity and physical location were verified at the time of this visit. Either the patient or their legal manufacturers service representative has been informed of the risks and benefits of -- and alternatives to -- treatment through a remote evaluation and consents to proceed with the evaluation remotely. All information is from Patient report except when noted. This evaluation is NOT intended for forensic, disability or child custody purposes. Some elements were copied from the previous note which have been updated where appropriate and reflect current decision making from today September 05, 2023. CC: Presenting today for follow up regarding psychiatric medication management. HPI: Treatment Plan from Last Visit on 07/17/2023: 1. Continue the gradual Lamictal taper as discussed during the last appointment. 2. Continue Pristiq at the same dose. 3. Discussed various ways of coping with her current work related stressors. 4. Reviewed red flags in detail that would warrant medication change. 5. Discussed ways to mitigate the constipation related side effects from her medication and stress. 6. Continue individual psychotherapy. Today Jennifer shares that things have been slightly better with the increase in Lamictal to 75 mg. Denies any side effects from Lamictal. No rashes. Has been taking 75 mg for about 30 days now. Discussed gradual increase in the Lamictal to address depressive symptoms. Continues to struggle with work related stress. Feels that it is still very tense at work. She continues to look for other opportunities. She has looked into doing training in other departments. She is trying to manage her stress by taking it one day at a time. Her close friend who was working with her is on medical leave due to cancer. This takes away a support person from her. Things at home are good. Puts a little bit more pressure for housework on her right now. is working long hours as it is their busy season. She is not able to see him that often. She continues to work with her therapist every 2 weeks. Therapist mentioned avoidant personality disorder. To patient this makes sense as she can share examples and experiences from childhood. She has not been as consistent with her mood tracking. Her mood was better this last month with the menstrual cycle. Has noticed incontinence in the last month. It is not consistent. Not sure that it is stress related. Has noticed it at night as well. Denies any new medications recently. Interval Progress: Slightly improved PATIENT DATA: Generalized Anxiety Disorder Scale (SUKHWINDER-7) 05/11/2023 07/07/2023 09/05/2023 SUKHWINDER - 7 SCORES Score 5 5 4 (0-4) minimal anxiety, (5-9) mild anxiety, (10-14) moderate anxiety, (15-21) severe anxiety Patient Health Questionnaire (PHQ-9) 05/11/2023 07/07/2023 09/05/2023 PHQ-9 Score 11 10 7 (0-4) minimal depression, (5-9) mild depression, (10-14) moderate depression, (15-19) moderately severe depression, (20-27) severe depression PAST MEDICAL HISTORY Diagnosis Date Appendicitis 01/2019 Cold sores Depression Previous suicide attempt Exercise-induced asthma PMH - PAST MEDICAL HISTORY OF 11/2004 normal color vision Varicella age 2 years PAST SURGICAL HISTORY Procedure Laterality Date EXTRACTION, ERUPTED TOOTH OR EXPOSED ROOT (ELEVATION AND/OR FORCEPS REMOVAL) LAPAROSCOPIC APPENDECTOMY 01/2019 ALLERGIES Allergen Reactions Seasonal Allergies Other: See Comments cough, sneeze,watery eyes Current Outpatient Medications on File Prior to Visit Medication Sig mupirocin (BACTROBAN) 2 % ointment Apply to affected area three times a day for 7 days. desvenlafaxine ER (PRISTIQ) 100 mg 24 hr tablet Take 1 tablet by mouth once daily. lamoTRIgine (LAMICTAL) 25 mg tablet Take 2.5 tablets by mouth once daily for 30 days, THEN 3 tablets once daily. ondansetron orally disintegrating (ZOFRAN ODT) 4 mg disintegrating tablet Take 1 tablet by mouth every 6 hours as needed for nausea/vomiting. cyclobenzaprine (FLEXERIL) 10 mg tablet Take 1 tablet by mouth three times a day as needed for muscle spasm. naproxen sodium (ALEVE) 220 mg tablet Take 1 tablet by mouth two times a day with meals. TAKE WITH FOOD vitamin b complex tab Take 1 tablet by mouth once daily. Biotin 1 mg tab Take 1 tablet by mouth. valACYclovir (VALTREX) 1 gram Take 1 tablet by mouth twice daily. For cold sore outbreak LORATADINE ORAL Take by mouth. fluticasone (FLONASE) 50 mcg/actuation nasal spray Use 2 Sprays in each nostril once daily. Rinse mouth after use. (Patient taking differently: Use 2 Sprays in each nostril once daily. Rinse mouth after use.... uses as needed) vnmmtoui-gkdq-YR-calcium-mins 18 mg iron-400 mcg-500 mg Ca tab multivitamin (OPTIVITE P.M.T. ORAL) albuterol HFA (VENTOLIN HFA) 90 mcg/actuation inhaler Inhale 2 Puffs as instructed every 4 hours as needed for Wheezing/Shortness of Breath. No current facility-administered medications on file prior to visit. ROS: All other systems negative. PFSH: See HPI VITAL SIGNS: There were no vitals filed for this visit. Last 3 Encounter BP Readings: Date: BP: 08/08/2023 114/72 06/16/2023 100/72 05/19/2023 122/78 MENTAL STATUS EXAMINATION: Mental Status Exam General/Sensorium: Alert Orientation: AAOx3 Appearance: Appears well groomed and stated age and casually dressed Eye contact: Appropriate Demeanor: Appropriately interactive Motor activity: Normal Speech: Articulate with appropriate rhythm and volume Mood: Sad Affect: Congruent with mood Thought process: Linear, logical, and goal-directed Associations: Normal Thought content: Discussing stressors and focused on history, symptoms, and management Suicidal ideation: SI: no Plan: no Intent: no Homicidal ideation: HI: no Plan: no Intent: no Abnormal/psychotic thoughts: Absent Perceptions: She does not appear internally stimulated. Intelligence: Average Attention: Intact Memory: Short-term: Intact Long-term: Intact Language: Intact Fund of knowledge: Fair Insight: Improving Judgment: Improving Gait: Steady Station: Standing DATA REVIEWED: Psychiatric scales, Electronic medical record, Labs, and data migration consultant report DIAGNOSIS: Mood disorder - PMDD versus MDD. Patient has been inconsistent with mood tracking and has been encouraged to work on that more consistently prior to the next appointment. Generalized Anxiety Disorder GAF: -60-51 Moderate symptoms or moderate difficulty in social, occupational or school functioning. TREATMENT PLAN: Gradually increase Lamictal dose to address depressive symptoms. Continue Pristiq at the same dose. Continue individual psychotherapy. MEDICATION CHANGES: - Reviewed Lamictal titration & risk of severe rash. Instructed to call PAIGE if this occurs. - See above. Risks and benefits of the medication, including any black box warnings, were discussed with the patient. Patient is aware to reach out with any questions, concerns, or worsening of symptoms prior to the next appointment. Patient educated on risks of substance use in combination with medications and advised that any substance use along with medications may alter their effectiveness. Follow Up: 3 months I spent a total of 35 minutes on the date of the service which included preparing to see the patient, [id number] patient care, completing clinical documentation, and counseling and educating the patient/family/caregiver, ordering medications/labs. ADD ON PSYCHOTHERAPY CODE : No SIGNATURE: Dyan Corey APRN.CNP PATIENT NAME: Herminia Pinon [facility] DATE: September 05, 2023 TIME: 4:40 PM documented in this encounter [facility] 08-08-2023 History of Presen t illness Narrative Jennifer is a 28 year old who presents for an annual gynecologic exam without complaints. Would like to conceive in the next few months. Taking PNV. Seeing psychiatry for management of mental health. Menses: cycles every 30 days and 5-7 days of flow. Contraception: condoms HPV vaccine: No Last Pap: 11/08/2021 normal HPV: N/A History of abnormal pap: No Last mammogram: never Sexually active: Yes Time with current partner: , 7 years Pain with intercourse: No Postcoital bleeding: No OB History T0 L0 SAB0 IAB0 Ectopic0 Multiple0 Live Births0 Music Orchestrator History LMP: 07/27/2023 (Exact Date), Having periods Age at Menarche: Age at First : Age at Menopause: Music Orchestrator History Comments: Sexual Activity: Yes; Male Contraception: Condom PAST MEDICAL HISTORY Diagnosis Date Appendicitis 01/2019 Cold sores Depression Previous suicide attempt Exercise-induced asthma PMH - PAST MEDICAL HISTORY OF 11/2004 normal color vision Varicella age 2 years PAST SURGICAL HISTORY Procedure Laterality Date EXTRACTION, ERUPTED TOOTH OR EXPOSED ROOT (ELEVATION AND/OR FORCEPS REMOVAL) LAPAROSCOPIC APPENDECTOMY 01/2019 FAMILY HISTORY Problem Relation Age of Onset other (mental health) Mother Stroke Father other (Epilepsy) Father Anxiety disorder Sister Depression Sister Asthma Sister Prematurity Sister other (one kidney) Sister Anxiety disorder Brother Stroke Maternal Grandfather Alzheimer's Disease Maternal Grandfather Heart Paternal Grandmother Stroke Paternal Grandmother SOCIAL HISTORY Social History Tobacco Use Smoking status: Never Smokeless tobacco: Never Vaping Use Vaping Use: Never used Substance Use Topics Alcohol use: Yes Comment: rare Drug use: Never REVIEW OF SYSTEMS Abdomen: No abdominal pain, nausea, vomiting, diarrhea, or constipation. No bloating, early satiety, indigestion, or increased flatulence. Bladder: No dysuria, gross hematuria, urinary frequency, urinary urgency, or incontinence. Breast: No breast lumps, nipple d/c, overlying skin changes, redness or skin retraction. Allergies and current medication updated:Yes EXAM: BP 114/72 Ht 5' 4 (1.63m) Wt 213 lb (96.6kg) LMP 07/27/2023 BMI 36.54 kg/(m^2). GENERAL: pleasant, female in no apparent distress HEENT: Normocephalic, atraumatic, mucus membranes moist, and no lesions NECK: Supple, full range of motion, no adenopathy, and thyroid normal DERMATOLOGY: Normal, without lesions, non-icteric, and non-hirsute BREAST: soft, non-tender, symmetric, no dominant mass, normal nipple-areolar complex, no lymphadenopathy, and no nipple discharge CHEST: Normal inspiratory effort ABDOMEN: soft, non-tender, and no masses PELVIC: external genitalia normal, normal Bartholin's glands, urethra, Casas Adobes's glands, no vulvar lesions, no cervical lesions, good vaginal support, physiologic discharge present, normal appearing perineal body and perianal region BIMANUAL: uterus normal size, shape and consistency, no adnexal masses, and non-tender RECTOVAGINAL: deferred. NEURO: alert and oriented x3,exam grossly non-focal EXTREMITIES: normal ASSESSMENT/PLAN: 1. Encounter for gynecological examination (general) (routine) with abnormal findings - ICD9: V72.31, ICD10: Z01.411 (primary diagnosis) - Completed pelvic and breast exam - Encouraged monthly BSE - Follow up for annual exam in one year. 2. Encounter for preconception consultation - ICD9: V26.49, ICD10: Z31.69 Reviewed pre-conception guidelines including folic acid supplementation, optimal timing of intercourse, avoidance of smoking, alcohol, and exposure to environmental chemicals. Discussed rubella and varicella titers and immunization if needed. Offered carrier screening. Reviewed need for evaluation if not within 12 months. 3. Class 2 obesity without serious comorbidity with body mass index (BMI) of 36.0 to 36.9 in adult, unspecified obesity type - ICD9: 278.00, V85.36, ICD10: E66.9, Z68.36 1) Health maintenance: Pap/HPV up to date. Nutrition, exercise and routine health maintenance exams reviewed. Calcium/Vitamin D supplementation information provided. Lipids/glucose: followed by PCP Vitamin D: followed by PCP 2) Contraception: none. C 3) STD screening: Declined STD check. 4) Follow up one year or sooner as needed Emilee Rose APRN.CNM documented in this encounter [facility] 07-17-2023 History of Presen t illness Narrative FOLLOW UP - PSYCHIATRIC PROGRESS NOTE Visit Type:Virtual Visit utilizing two-way audio and video for at least a portion of the visit. Consent for virtual visit obtained verbally. Confidentiality limitations with virtual visits reviewed with the patient and guardian, if present, who have accepted the risk verbally prior to proceeding with encounter. I have communicated my name and active licensure. The patient's identity and physical location were verified at the time of this visit. Either the patient or their legal manufacturers service representative has been informed of the risks and benefits of -- and alternatives to -- treatment through a remote evaluation and consents to proceed with the evaluation remotely. Reason for Visit: Recurrence of psychiatric problem previously in remission CC: Worsening depressive symptoms HPI: Shares that the situational stress has been overwhelming. Work has been stressful since the last couple weeks. Some family things have been concerning. She has been estranged from her family (her parents). Has had disagreements with people at work. She was accused a couple times that she was not handling medications well. She felt that it broke her trust with he colleagues. Her boss sent her an email saying that she has been working too much overtime. She shared that the boss was concerned about her work life balance. I don't think people appreciate the work I do and think that I am just milking the clock. She has not responded to the email from her boss yet as she does not have access to work email at home. She has been trying to figure out how to respond to her boss. Discussed requesting a meeting with her boss. They have also accused her of making too many mistakes. The person that has accused her does not see eye to eye with the patient. She also feels that they are watching her closely and she is getting anxious about making errors. The stress related to work has been causing her to avoid going to work. She is not feeling like getting up in the morning or doing anything. She has been working at this place for the past year. Her last work place was more stressful. She has been thinking about other positions. She has noticed that she has been experiencing constipation with the current dose of Lamictal. Has noticed that she is straining and her bowel movements are less frequent. She has been feeling slightly bloated. She still does have a bowel movement every day. She did have a therapy appointment on Friday. Huggins worse after leaving the appointment. She verbalizes that she needs to manage her stress better. Sometimes she feels so down that it is hard for her to do the things she knows that she should. She does have people that she can go and talk to but she does not wish to weigh them down with her stuff. I don't want to just be the friend that calls them when I am struggling. Would like to make changes in her diet. Does not feel that she exercises as much as she should. I do beat myself up for not doing better. Discussed the stress in detail and identified ways of coping. Also reviewed red flags which would warrant a medication change. Risks and benefits of the medication, including any black box warnings, were discussed with the patient. Interval Progress: Slightly worse due to situational stress PATIENT DATA: Generalized Anxiety Disorder Scale (SUKHWINDER-7) 03/21/2023 05/11/2023 07/07/2023 SUKHWINDER - 7 SCORES Score 16 5 5 (0-4) minimal anxiety, (5-9) mild anxiety, (10-14) moderate anxiety, (15-21) severe anxiety Patient Health Questionnaire (PHQ-9) 07/07/2023 05/11/2023 03/21/2023 PHQ-9 Score 10 11 13 (0-4) minimal depression, (5-9) mild depression, (10-14) moderate depression, (15-19) moderately severe depression, (20-27) severe depression PROMIS Global Health 08/11/2022 02/08/2023 05/11/2023 PROMIS Global Health - (T-Scores - the mean of general population = 50. Five points is a clinically meaningful difference.) Physical T-Score 42.3 42.3 54.1 Mental T-Score 31.3 33.8 45.8 PAST MEDICAL HISTORY Diagnosis Date Appendicitis 01/2019 Cold sores Depression Previous suicide attempt Exercise-induced asthma PMH - PAST MEDICAL HISTORY OF 11/2004 normal color vision Varicella age 2 years PAST SURGICAL HISTORY Procedure Laterality Date EXTRACTION, ERUPTED TOOTH OR EXPOSED ROOT (ELEVATION AND/OR FORCEPS REMOVAL) LAPAROSCOPIC APPENDECTOMY 01/2019 Current Outpatient Medications Medication Sig Dispense Refill desvenlafaxine ER (PRISTIQ) 100 mg 24 hr tablet Take 1 tablet by mouth once daily. 90 tablet 0 lamoTRIgine (LAMICTAL) 25 mg tablet Take 2.5 tablets by mouth once daily for 30 days, THEN 3 tablets once daily. 165 tablet 0 ondansetron orally disintegrating (ZOFRAN ODT) 4 mg disintegrating tablet Take 1 tablet by mouth every 6 hours as needed for nausea/vomiting. 20 tablet 0 cyclobenzaprine (FLEXERIL) 10 mg tablet Take 1 tablet by mouth three times a day as needed for muscle spasm. 30 tablet 0 naproxen sodium (ALEVE) 220 mg tablet Take 1 tablet by mouth two times a day with meals. TAKE WITH FOOD vitamin b complex tab Take 1 tablet by mouth once daily. Biotin 1 mg tab Take 1 tablet by mouth. valACYclovir (VALTREX) 1 gram Take 1 tablet by mouth twice daily. For cold sore outbreak 6 tablet 5 LORATADINE ORAL Take by mouth. fluticasone (FLONASE) 50 mcg/actuation nasal spray Use 2 Sprays in each nostril once daily. Rinse mouth after use. (Patient taking differently: Use 2 Sprays in each nostril once daily. Rinse mouth after use.... uses as needed) 1 Bottle 1 bdgobybj-idew-OW-calcium-mins 18 mg iron-400 mcg-500 mg Ca tab multivitamin (OPTIVITE P.M.T. ORAL) albuterol HFA (VENTOLIN HFA) 90 mcg/actuation inhaler Inhale 2 Puffs as instructed every 4 hours as needed for Wheezing/Shortness of Breath. 1 Inhaler 0 No current facility-administered medications for this visit. ROS: GENERAL: Negative for malaise, significant weight loss and fever. HEENT: No changes in hearing or vision, no nose bleeds or other nasal problems. RESPIRATORY: Negative for cough, wheezing and shortness of breath. CARDIOVASCULAR: Negative for chest pain, leg swelling and palpitations. GI: Negative for abdominal discomfort, blood in stools or black stools. : Negative for dysuria, frequency and incontinence. MUSCULOSKELETAL: Negative for joint pain or swelling, back pain, and muscle pain. SKIN: Negative for lesions, rash, and itching. HEMATOLOGY/LYMPHOLOGY Negative for prolonged bleeding, bruising easily, and swollen nodes. ENDOCRINE: Negative for cold or heat intolerance, polyuria, polydipsia and goiter. NEURO: Negative for headaches, syncope, seizures and paralysis. PFSH: See HPI VITAL SIGNS: There were no vitals filed for this visit. MENTAL STATUS EXAM: CONSTITUTIONAL: Casually dressed ORIENTATION: Person, Place, Time and Situation MEMORY: Recent intact, Remote intact, Immediate intact CONCENTRATION: Anxiety interferes MOOD: sad AFFECT: Full and appropriate to topic SPEECH : Clear & distinct LANGUAGE : Normal ASSOCIATIONS: Intact THOUGHT PROCESS : Logical, Coherent, and Rational PROGRESSION : There was no evidence of disturbance in thought perception or progression. FUND OF KNOWLEDGE : Appropriate and Adequate SUICIDE: None HOMICIDE: None DATA REVIEWED: Psychiatric scales and Electronic medical record DIAGNOSIS: PRIMARY: Mood disorder Secondary : Generalized Anxiety Disorder Other : none GAF: -60-51 Moderate symptoms or moderate difficulty in social, occupational or school functioning. TREATMENT PLAN: 1. Continue the gradual Lamictal taper as discussed during the last appointment. 2. Continue Pristiq at the same dose. 3. Discussed various ways of coping with her current work related stressors. 4. Reviewed red flags in detail that would warrant medication change. 5. Discussed ways to mitigate the constipation related side effects from her medication and stress. 6. Continue individual psychotherapy. MEDICATION CHANGES: Current medication regimen unchanged. - Reviewed Lamictal titration & risk of severe rash. Instructed to call PAIGE if this occurs. Follow Up: As scheduled in September or sooner if needed I spent a total of 50 minutes on the date of the service which included preparing to see the patient, [id number] patient care, completing clinical documentation, obtaining and/or reviewing separately obtained history, counseling and educating the patient/family/caregiver, ordering medications, tests, or procedures, communicating with other HCPs (not separately reported), independently interpreting results (not separately reported), and communicating results to the patient/family/caregiver. ADD ON PSYCHOTHERAPY CODE : No SIGNATURE: Dyan Corey APRN.CNP PATIENT NAME: Herminia Pinon [facility] DATE: July 17, 2023 TIME: 4:12 PM documented in this encounter [facility] 07-07-2023 Instructions Dyan Corey APRN.CNP - 07/07/2023 5:07 PM EST Ken Hope, It was good to talk with you today. Below is a summary of the plan that we discussed during your appointment for reference. Of course, if you have any questions or concerns do not hesitate to reach out to me via a message or call. Best, Dyan Rajguru SECURITY OPERATIONS CENTER ANALYST.PATTERN MARKING SUPERVISOR PLAN AND FOLLOW UP: YOU SHOULD SEEK IMMEDIATE MEDICAL ATTENTION AT THE NEAREST EMERGENCY DEPARTMENT OR BY CALLING 911, IF ANY OF THE FOLLOWING OCCURS: - New or worsening thoughts of harming yourself (suicidal thoughts) or others (homicidal thoughts) - Not feeling safe at home or worrying about your ability to remain safe at home If you are having thoughts of harming yourself or others, then you can: - Call the National Suicide Hotline at 088 - Text 4HOPE to 628 Medications: Continue: Pristiq at the same dose. Change: Lamictal 25 mg - take 2 and half tablet once daily for 30 days, then take 3 tablets once daily after that Next appointment: --Schedule in 2 months or sooner if needed -- You may call the department appointment line at [phone] to schedule your appointment. -- Please call my nurse Hilda at [phone] or send me a message in Consert with any questions or concerns between appointments. documented in this encounter [facility] 07-07-2023 History of Presen t illness Narrative FOLLOW UP - PSYCHIATRIC PROGRESS NOTE Visit Type:Virtual Visit utilizing two-way audio and video for at least a portion of the visit. Consent for virtual visit obtained verbally. Confidentiality limitations with virtual visits reviewed with the patient and guardian, if present, who have accepted the risk verbally prior to proceeding with encounter. I have communicated my name and active licensure. The patient's identity and physical location were verified at the time of this visit. Either the patient or their legal manufacturers service representative has been informed of the risks and benefits of -- and alternatives to -- treatment through a remote evaluation and consents to proceed with the evaluation remotely. Reason for Visit: Outpatient follow-up and safety monitoring of previously prescribed psychiatric medication, psychotherapy or other treatment CC: Follow up after gradual increase in Lamictal. HPI: Treatment plan from last visit on 05/12/2023: 1. Increase Lamictal slowly to address her mood symptoms. 2. Continue Pristiq at the same dose. 3. Continue individual psychotherapy. Today Jennifer shares that I am pretty good. She had a little bit of a rough month. She has not seen a huge difference in her mood. Denies any itching or rash side effect related to Lamictal. Her thoughts are not as negatives. A week to a week and half before her periods she notices worsening in her mood. Also experienced negative thoughts. Was not feeling as confident about herself. She did not experience increase in anxiety or any suicidal thoughts. Continues to track her moods consistently. She thought that she was experiencing some physical symptoms and attributed that to possible kidney stones. Her ultrasound was WNL. She was concerned about the physical pain and nausea that she was experiencing. She is no longer experiencing urinary symptoms, nausea, and pain. They are not actively trying to conceive currently. Planning on focusing on that in summer more. Denies any physical health issues right now. She has noticed some changes in her menstrual cycle and some acne. Sleep has been good overall. She has noticed a slight worsening of sleep when she is more stressed. Patient celebrated her birthday yesterday with her family. Enjoyed spending time with family. Risks and benefits of the medication, including any black box warnings, were discussed with the patient. Interval Progress: Slightly improved PATIENT DATA: Generalized Anxiety Disorder Scale (SUKHWINDER-7) SUKHWINDER - 7 SCORES 03/21/2023 05/11/2023 07/07/2023 SUKHWINDER-7 Score 16 5 5 (0-4) minimal anxiety, (5-9) mild anxiety, (10-14) moderate anxiety, (15-21) severe anxiety Patient Health Questionnaire (PHQ-9) PHQ-9 03/21/2023 05/11/2023 07/07/2023 Score 13 11 10 (0-4) minimal depression, (5-9) mild depression, (10-14) moderate depression, (15-19) moderately severe depression, (20-27) severe depression PROMIS Global Health PROMIS Global Health - (T-Scores - the mean of general population = 50. Five points is a clinically meaningful difference.) 08/11/2022 02/08/2023 05/11/2023 Physical T-Score 42.3 42.3 54.1 Mental T-Score 31.3 33.8 45.8 PAST MEDICAL HISTORY Diagnosis Date Appendicitis 01/2019 Cold sores Depression Previous suicide attempt Exercise-induced asthma PMH - PAST MEDICAL HISTORY OF 11/2004 normal color vision Varicella age 2 years PAST SURGICAL HISTORY Procedure Laterality Date EXTRACTION, ERUPTED TOOTH OR EXPOSED ROOT (ELEVATION AND/OR FORCEPS REMOVAL) LAPAROSCOPIC APPENDECTOMY 01/2019 Current Outpatient Medications Medication Sig Dispense Refill ondansetron orally disintegrating (ZOFRAN ODT) 4 mg disintegrating tablet Take 1 tablet by mouth every 6 hours as needed for nausea/vomiting. 20 tablet 0 predniSONE (DELTASONE) 20 mg tablet Take 2 tablets by mouth once daily. 10 tablet 0 cyclobenzaprine (FLEXERIL) 10 mg tablet Take 1 tablet by mouth three times a day as needed for muscle spasm. 30 tablet 0 lamoTRIgine (LAMICTAL) 25 mg tablet Take 1.5 tablets by mouth once daily for 30 days, THEN 2 tablets once daily. 105 tablet 0 desvenlafaxine ER (PRISTIQ) 100 mg 24 hr tablet Take 1 tablet by mouth once daily. 90 tablet 0 naproxen sodium (ALEVE) 220 mg tablet Take 1 tablet by mouth two times a day with meals. TAKE WITH FOOD vitamin b complex tab Take 1 tablet by mouth once daily. Biotin 1 mg tab Take 1 tablet by mouth. valACYclovir (VALTREX) 1 gram Take 1 tablet by mouth twice daily. For cold sore outbreak 6 tablet 5 LORATADINE ORAL Take by mouth. fluticasone (FLONASE) 50 mcg/actuation nasal spray Use 2 Sprays in each nostril once daily. Rinse mouth after use. (Patient taking differently: Use 2 Sprays in each nostril once daily. Rinse mouth after use.... uses as needed) 1 Bottle 1 pmkzlifg-jfbf-IB-calcium-mins 18 mg iron-400 mcg-500 mg Ca tab multivitamin (OPTIVITE P.M.T. ORAL) albuterol HFA (VENTOLIN HFA) 90 mcg/actuation inhaler Inhale 2 Puffs as instructed every 4 hours as needed for Wheezing/Shortness of Breath. 1 Inhaler 0 No current facility-administered medications for this visit. ROS: See HPI PFSH: See HPI VITAL SIGNS: There were no vitals filed for this visit. MENTAL STATUS EXAM: CONSTITUTIONAL: Well groomed, Casually dressed ORIENTATION: Person, Place, Time and Situation MEMORY: Recent intact, Remote intact, Immediate intact CONCENTRATION: Normal MOOD: sad AFFECT: Full and appropriate to topic SPEECH : Clear & distinct LANGUAGE : Normal ASSOCIATIONS: Intact THOUGHT PROCESS : Logical, Coherent, and Rational PROGRESSION : There was no evidence of disturbance in thought perception or progression. FUND OF KNOWLEDGE : Appropriate and Adequate SUICIDE: None HOMICIDE: None DATA REVIEWED: Psychiatric scales and Electronic medical record DIAGNOSIS: PRIMARY: Generalized Anxiety Disorder Secondary : Mood disorder - PMDD versus MDD Other : none GAF: -60-51 Moderate symptoms or moderate difficulty in social, occupational or school functioning. TREATMENT PLAN: 1. Continue gradually increasing the Lamictal to address depressive symptoms. 2. Continue Pristiq at the same dose. 3. Continue individual psychotherapy. MEDICATION CHANGES: - Lamictal 25 mg - take 2 and half tablet once daily for 30 days, then take 3 tablets once daily after that. - Reviewed Lamictal titration & risk of severe rash. Instructed to call PAIGE if this occurs. Discussed the considerations of utilizing these medications in as patient is planning to conceive. Has also discussed these questions with her OB. Follow Up: 2 months I spent a total of 35 minutes on the date of the service which included preparing to see the patient, [id number] patient care, completing clinical documentation, obtaining and/or reviewing separately obtained history, counseling and educating the patient/family/caregiver, ordering medications, tests, or procedures, communicating with other HCPs (not separately reported), independently interpreting results (not separately reported), and communicating results to the patient/family/caregiver. ADD ON PSYCHOTHERAPY CODE : No SIGNATURE: Dyan Corey APRN.CNP PATIENT NAME: Herminia Gottlieb DATE: July 07, 2023 TIME: 4:35 PM documented in this encounter [facility] 06-26-2023 History of Presen t illness Narrative Radiology Service Progress Note PATIENT NAME: Herminia Gottlieb DATE OF SERVICE: June 26, 2023 TIME: 2:46 PM PATIENT IDENTITY VERIFICATION COMPLETED USING TWO (2) IDENTIFIERS: Name and Date of confirmed by patient verbally. FALL SCREENING: Has the patient had 2 falls in the last year or 1 fall with injury or currently using an Ambulatory Assistive Device (Walker, Cane, Wheelchair, Crutches, etc.)? No PATIENT GENDER DATA: Female. status: : No status: NO. PATIENT RELEVANT IMPLANT DATA REVIEWED: Not Applicable PATIENT PRESENTS WITH AN IMPLANTABLE OR ATTACHED LASTING ROOM SUPERVISOR: No RADIOLOGY DEPARTMENT: Ultrasound PERIPHERAL IV DATA: Not applicable SIGNED BY: Ernestine Kothari RDMS June 26, 2023 2:46 PM documented in this encounter [facility] 06-16-2023 Instructions Светлана Srinivasan APRN.PATTERN MARKING SUPERVISOR - 06/16/2023 10:19 AM EST Continue the omeprazole for a couple of weeks. Schedule the ultrasound. Zofran as needed for nausea. Stay well hydrated. documented in this encounter [facility] 06-16-2023 History of Presen t illness Narrative This is a 27 year old female who presents today with: Patient presents with: Acute Visit: Lower R back pain, blood in urine, vomiting HISTORY OF PRESENT ILLNESS: Herminia Gottlieb is a 27 year old female. Patient presents with: Acute Visit: Lower R back pain, blood in urine, vomiting Pt presents today with complaint of not feeling well. Not feeling well the last couple of days. Refers that some back pain. Refers that she is drinking more and urinating more, but just a little bit. Refers that she vomited this morning. More gassy. Started a couple of days ago. Hasn't felt feverish. Denies any respiratory symptoms. Refers some right back pain. Has tried tylenol and cyclobenzaprine. No dysuria w/ urination. Refers the back may hurt some with urination. + urinary frequency. Refers sometimes would have a hard time initiating stream or it would be stop/go. Noticed some blood with wiping this morning. Refers did not appear to be vaginal in nature. Vomited this morning. No diarrhea. Feels acid reflux this past weekend. Gassy, bloaty. No significant pain. She has been taking omeprazole. LMP - 05/31 - 06/04. PAST MEDICAL HISTORY: PAST MEDICAL HISTORY Diagnosis Date Appendicitis 01/2019 Cold sores Depression Previous suicide attempt Exercise-induced asthma PMH - PAST MEDICAL HISTORY OF 11/2004 normal color vision Varicella age 2 years PAST SURGICAL HISTORY Procedure Laterality Date EXTRACTION, ERUPTED TOOTH OR EXPOSED ROOT (ELEVATION AND/OR FORCEPS REMOVAL) LAPAROSCOPIC APPENDECTOMY 01/2019 ALLERGIES Seasonal Allergies MEDICATIONS Current Outpatient Medications Medication Sig lamoTRIgine (LAMICTAL) 25 mg tablet Take 1.5 tablets by mouth once daily for 30 days, THEN 2 tablets once daily. desvenlafaxine ER (PRISTIQ) 100 mg 24 hr tablet Take 1 tablet by mouth once daily. naproxen sodium (ALEVE) 220 mg tablet Take 1 tablet by mouth two times a day with meals. TAKE WITH FOOD vitamin b complex tab Take 1 tablet by mouth once daily. Biotin 1 mg tab Take 1 tablet by mouth. valACYclovir (VALTREX) 1 gram Take 1 tablet by mouth twice daily. For cold sore outbreak LORATADINE ORAL Take by mouth. fluticasone (FLONASE) 50 mcg/actuation nasal spray Use 2 Sprays in each nostril once daily. Rinse mouth after use. (Patient taking differently: Use 2 Sprays in each nostril once daily. Rinse mouth after use.... uses as needed) chqiusds-gbzg-EQ-calcium-mins 18 mg iron-400 mcg-500 mg Ca tab multivitamin (OPTIVITE P.M.T. ORAL) albuterol HFA (VENTOLIN HFA) 90 mcg/actuation inhaler Inhale 2 Puffs as instructed every 4 hours as needed for Wheezing/Shortness of Breath. predniSONE (DELTASONE) 20 mg tablet Take 2 tablets by mouth once daily. cyclobenzaprine (FLEXERIL) 10 mg tablet Take 1 tablet by mouth three times a day as needed for muscle spasm. No current facility-administered medications for this visit. FAMILY HISTORY Problem Relation Age of Onset other (mental health) Mother Stroke Father other (Epilepsy) Father Anxiety disorder Sister Depression Sister Asthma Sister Prematurity Sister other (one kidney) Sister Anxiety disorder Brother Stroke Maternal Grandfather Alzheimer's Disease Maternal Grandfather Heart Paternal Grandmother Stroke Paternal Grandmother Social History Tobacco Use Smoking status: Never Smokeless tobacco: Never Vaping Use Vaping Use: Never used Substance Use Topics Alcohol use: Yes Comment: rare Drug use: Never EXAM: BP 100/72 Pulse 98 Resp 16 LMP 08/23/2022 SpO2 98% PHYSICAL EXAM: General Appearance: Well appearing, alert, in no acute distress, well-hydrated, well nourished.. Skin: Skin color, texture, turgor normal, no suspicious rashes or lesions. Head: Normocephalic, no masses, lesions, tenderness or abnormalities. Eyes: Anicteric sclera. Pupils are equally round and reactive to light. Extraocular movements are intact. . Back:no pain to palpation of vertebrae, some tenderness of the right flank area. No CVA tenderness. Lungs: Lungs clear to auscultation. No wheezing, rhonchi, rales.. Heart: RRR without murmur, gallop, or rubs. No ectopy. Abdomen: Abdomen soft. Generalized tenderness. Bowel sounds normal. No masses, organomegaly. Extremities: No deformities, edema, skin discoloration, clubbing or cyanosis. Good capillary refill. . Neurologic: Gait normal. ASSESSMENT/PLAN: 1. Low back pain, unspecified back pain laterality, unspecified chronicity, unspecified whether sciatica present - ICD9: 724.2, ICD10: M54.50 (primary diagnosis) - UA DIP, URINE (POC) - US KIDNEY/BLADDER - URINE CULTURE Concern with visible blood, flank pain, and urinary hesitancy, will get ultrasound of kidney and bladder. Send urine for culture. 2. Nausea - ICD9: 787.02, ICD10: R11.0 Zofran prn. 3. Gastroesophageal reflux disease, unspecified whether esophagitis present - ICD9: 530.81, ICD10: K21.9 Continue the daily omeprazole for a couple of weeks. Discussed treatment plan and patient voices understanding. Patient's questions answered appropriately. Medications and potential side effects were discussed and patient voices understanding. Return to the office as scheduled or as needed for worsening/no improvement. Светлана Srinivasan APRN.PATTERN MARKING SUPERVISOR documented in this encounter [facility] 05-12-2023 History of Presen t illness Narrative FOLLOW UP - PSYCHIATRIC PROGRESS NOTE Visit Type:Virtual Visit utilizing two-way audio and video for at least a portion of the visit. Consent for virtual visit obtained verbally. Confidentiality limitations with virtual visits reviewed with the patient and guardian, if present, who have accepted the risk verbally prior to proceeding with encounter. I have communicated my name and active licensure. The patient's identity and physical location were verified at the time of this visit. Either the patient or their legal manufacturers service representative has been informed of the risks and benefits of -- and alternatives to -- treatment through a remote evaluation and consents to proceed with the evaluation remotely. Reason for Visit: Outpatient follow-up and safety monitoring of previously prescribed psychiatric medication, psychotherapy or other treatment CC: Follow up for psychiatric medication management HPI: Today Jennifer shares that her and patient are interested in starting a family. She initially thought she was but tested negative. They are going to have to wait till October to try to start having a family. Planning it this way will help her be present and help her with the baby. April 10 increased the dose to 25 mg tablet of Lamictal. Initially she experienced itching but does not have any rashes. During her period she struggles with low moods. Experienced a lot of negative thoughts around that time. Noticed improvement in her symptoms mid way through the period. They have been doing a lot of things around the house. Spending more time with other friends and family. Has hydroxyzine and discussed utilizing it for itching side effects or anxiety. Risks and benefits of the medication, including any black box warnings, were discussed with the patient. Interval Progress: Slightly improved PATIENT DATA: Generalized Anxiety Disorder Scale (SUKHWINDER-7) SUKHWINDER - 7 SCORES 03/07/2023 03/21/2023 05/11/2023 SUKHWINDER-7 Score 10 16 5 (0-4) minimal anxiety, (5-9) mild anxiety, (10-14) moderate anxiety, (15-21) severe anxiety Patient Health Questionnaire (PHQ-9) PHQ-9 03/07/2023 03/21/2023 05/11/2023 Score 22 13 11 (0-4) minimal depression, (5-9) mild depression, (10-14) moderate depression, (15-19) moderately severe depression, (20-27) severe depression PROMIS Global Health PROMIS Global Health - (T-Scores - the mean of general population = 50. Five points is a clinically meaningful difference.) 08/11/2022 02/08/2023 05/11/2023 Physical T-Score 42.3 42.3 54.1 Mental T-Score 31.3 33.8 45.8 PAST MEDICAL HISTORY Diagnosis Date Appendicitis 01/2019 Cold sores Depression Previous suicide attempt Exercise-induced asthma PMH - PAST MEDICAL HISTORY OF 11/2004 normal color vision Varicella age 2 years PAST SURGICAL HISTORY Procedure Laterality Date EXTRACTION, ERUPTED TOOTH OR EXPOSED ROOT (ELEVATION AND/OR FORCEPS REMOVAL) LAPAROSCOPIC APPENDECTOMY 01/2019 Current Outpatient Medications Medication Sig Dispense Refill desvenlafaxine ER (PRISTIQ) 100 mg 24 hr tablet Take 1 tablet by mouth once daily. 30 tablet 0 lamoTRIgine (LAMICTAL) 25 mg tablet Take 1 tablet by mouth once daily. 30 tablet 0 naproxen sodium (ALEVE) 220 mg tablet Take 1 tablet by mouth two times a day with meals. TAKE WITH FOOD vitamin b complex tab Take 1 tablet by mouth once daily. Biotin 1 mg tab Take 1 tablet by mouth. valACYclovir (VALTREX) 1 gram Take 1 tablet by mouth twice daily. For cold sore outbreak 6 tablet 5 LORATADINE ORAL Take by mouth. fluticasone (FLONASE) 50 mcg/actuation nasal spray Use 2 Sprays in each nostril once daily. Rinse mouth after use. (Patient taking differently: Use 2 Sprays in each nostril once daily. Rinse mouth after use.... uses as needed) 1 Bottle 1 xngdfezz-lpov-YX-calcium-mins 18 mg iron-400 mcg-500 mg Ca tab multivitamin (OPTIVITE P.M.T. ORAL) albuterol HFA (VENTOLIN HFA) 90 mcg/actuation inhaler Inhale 2 Puffs as instructed every 4 hours as needed for Wheezing/Shortness of Breath. 1 Inhaler 0 No current facility-administered medications for this visit. ROS: See HPI PFSH: See HPI VITAL SIGNS: There were no vitals filed for this visit. MENTAL STATUS EXAM: CONSTITUTIONAL: Casually dressed ORIENTATION: Person, Place, Time and Situation MEMORY: Recent intact, Remote intact, Immediate intact CONCENTRATION: Normal MOOD: euthymic AFFECT: Full and appropriate to topic SPEECH : Clear & distinct LANGUAGE : Normal ASSOCIATIONS: Intact THOUGHT PROCESS : Logical, Coherent, and Rational PROGRESSION : There was no evidence of disturbance in thought perception or progression. FUND OF KNOWLEDGE : Appropriate and Adequate SUICIDE: None HOMICIDE: None DATA REVIEWED: Psychiatric scales, Labs, Electronic medical record, and Machine Binder Stripper notes DIAGNOSIS: PRIMARY: Mood Disorder Secondary : Generalized Anxiety Disorder Other : none GAF: -60-51 Moderate symptoms or moderate difficulty in social, occupational or school functioning. TREATMENT PLAN: 1. Increase Lamictal slowly to address her mood symptoms. 2. Continue Pristiq at the same dose. 3. Continue individual psychotherapy. MEDICATION CHANGES: - Lamictal gradually increased to 37.5 mg for 30 days and then 50 mg after that Prescriptions given - Reviewed Lamictal titration & risk of severe rash. Instructed to call PAIGE if this occurs. Follow Up: 2 months I spent a total of 36 minutes on the date of the service which included preparing to see the patient, [id number] patient care, completing clinical documentation, obtaining and/or reviewing separately obtained history, counseling and educating the patient/family/caregiver, ordering medications, tests, or procedures, communicating with other HCPs (not separately reported), independently interpreting results (not separately reported), and communicating results to the patient/family/caregiver. ADD ON PSYCHOTHERAPY CODE : No SIGNATURE: Dyan Corey APRN.CNP PATIENT NAME: Herminia Gottlieb DATE: May 12, 2023 TIME: 4:50 PM documented in this encounter [facility] 04-15-2023 Instructions Светлана Srinivasan APRN.CNP - 04/15/2023 3:37 PM EST Check the vitamin and see how much folic acid is in it. Add folic acid 1 mg day. Start the augmentin. Start the bactroban in the nose. documented in this encounter [facility] 04-15-2023 History of Presen t illness Narrative This is a 27 year old female who presents today with: Patient presents with: Acute Visit: R sided facial/sinus pain; no fever; sore throat started today HISTORY OF PRESENT ILLNESS: Herminia Gottlieb is a 27 year old female. Patient presents with: Acute Visit: R sided facial/sinus pain; no fever; sore throat started today Pt presents today with complaint of sinus symptoms that started a week ago. Refers that right sided sinus pain. She was having some problems with a scab in the right nostril. Red throat. Not coughing. Huggins a little dizzy in the morning. Hot flashes/chilly. Taking OTC cold medication. Mood: Improved w/ lamictal. Happy with current plan. Contemplating . PAST MEDICAL HISTORY: PAST MEDICAL HISTORY Diagnosis Date Appendicitis 01/2019 Cold sores Depression Previous suicide attempt Exercise-induced asthma PMH - PAST MEDICAL HISTORY OF 11/2004 normal color vision Varicella age 2 years PAST SURGICAL HISTORY Procedure Laterality Date EXTRACTION, ERUPTED TOOTH OR EXPOSED ROOT (ELEVATION AND/OR FORCEPS REMOVAL) LAPAROSCOPIC APPENDECTOMY 01/2019 ALLERGIES Seasonal Allergies MEDICATIONS Current Outpatient Medications Medication Sig desvenlafaxine ER (PRISTIQ) 100 mg 24 hr tablet Take 1 tablet by mouth once daily. hydrOXYzine HCl (ATARAX) 10 mg tablet Take 1 tablet by mouth three times a day as needed. lamoTRIgine (LAMICTAL) 25 mg tablet Take 1 tablet by mouth once daily. naproxen sodium (ALEVE) 220 mg tablet Take 1 tablet by mouth two times a day with meals. TAKE WITH FOOD vitamin b complex tab Take 1 tablet by mouth once daily. Biotin 1 mg tab Take 1 tablet by mouth. valACYclovir (VALTREX) 1 gram Take 1 tablet by mouth twice daily. For cold sore outbreak LORATADINE ORAL Take by mouth. fluticasone (FLONASE) 50 mcg/actuation nasal spray Use 2 Sprays in each nostril once daily. Rinse mouth after use. (Patient taking differently: Use 2 Sprays in each nostril once daily. Rinse mouth after use.... uses as needed) ekhizjcp-ejbi-DP-calcium-mins 18 mg iron-400 mcg-500 mg Ca tab multivitamin (OPTIVITE P.M.T. ORAL) albuterol HFA (VENTOLIN HFA) 90 mcg/actuation inhaler Inhale 2 Puffs as instructed every 4 hours as needed for Wheezing/Shortness of Breath. No current facility-administered medications for this visit. FAMILY HISTORY Problem Relation Age of Onset other (mental health) Mother Stroke Father other (Epilepsy) Father Anxiety disorder Sister Depression Sister Asthma Sister Prematurity Sister other (one kidney) Sister Anxiety disorder Brother Stroke Maternal Grandfather Alzheimer's Disease Maternal Grandfather Heart Paternal Grandmother Stroke Paternal Grandmother Social History Tobacco Use Smoking status: Never Smokeless tobacco: Never Vaping Use Vaping Use: Never used Substance Use Topics Alcohol use: Yes Comment: rare Drug use: Never EXAM: BP 124/90 Pulse 89 Resp 16 LMP 08/23/2022 SpO2 98% PHYSICAL EXAM: General Appearance: Well appearing, alert, in no acute distress, well-hydrated, well nourished.. Skin: Skin color, texture, turgor normal, no suspicious rashes or lesions. Head: Normocephalic, no masses, lesions, tenderness or abnormalities. Eyes: Anicteric sclera. Pupils are equally round and reactive to light. Extraocular movements are intact. . Ears: External ears normal, canals clear. Normal TMs bilaterally. Oropharynx: Lips, mucosa, and tongue normal, teeth and gums normal, oropharynx normal. Neck: Supple, no adenopathy; thyroid symmetric, normal size, no bruits. Lungs: Lungs clear to auscultation. No wheezing, rhonchi, rales.. Heart: RRR without murmur, gallop, or rubs. No ectopy. Extremities: No deformities, edema, skin discoloration, clubbing or cyanosis. Good capillary refill. . Neurologic: Gait normal. ASSESSMENT/PLAN: 1. Acute non-recurrent sinusitis, unspecified location - ICD9: 461.9, ICD10: J01.90 (primary diagnosis) - Will begin treatment with Augmentin 875 mg PO BID for 10 days - The patient should also be given OTC cough and cold meds as needed for the first 5-7 days of treatment. - Supportive care with plenty of fluids, rest, and analgesia prn. - Follow up in one week if symptoms persist or worsen. - AMOXICILLIN 875 MG-POTASSIUM CLAVULANATE 125 MG TABLET 2. Sore in nose - ICD9: 478.19, ICD10: J34.89 - start bactroban. - MUPIROCIN 2 % TOPICAL OINTMENT 3. Family planning advice - ICD9: V25.09, ICD10: Z30.09 Increase folic acid supplementation when planning . Discussed treatment plan and patient voices understanding. Patient's questions answered appropriately. Medications and potential side effects were discussed and patient voices understanding. Return to the office as scheduled or as needed for worsening/no improvement. Светлана Srinivasan APRN.DANICA documented in this encounter [facility] 03-21-2023 Miscellaneous Notes Addressed during appointment today. documented in this encounter [facility] 03-21-2023 History of Presen t illness Narrative FOLLOW UP - PSYCHIATRIC PROGRESS NOTE Visit Type:Virtual Visit utilizing two-way audio and video for at least a portion of the visit. Consent for virtual visit obtained verbally. Confidentiality limitations with virtual visits reviewed with the patient and guardian, if present, who have accepted the risk verbally prior to proceeding with encounter. I have communicated my name and active licensure. The patient's identity and physical location were verified at the time of this visit. Either the patient or their legal manufacturers service representative has been informed of the risks and benefits of -- and alternatives to -- treatment through a remote evaluation and consents to proceed with the evaluation remotely. Reason for Visit: Outpatient follow-up and safety monitoring of previously prescribed psychiatric medication, psychotherapy or other treatment CC: Follow up after a re challenge of Lamictal dose. HPI: It is important to note that patient was not able to tolerate the Rexulti. She contacted this provider via [employer] and requested to trial Lamictal again at a low dose. We had discussed restarting it at a 12.5 mg dose and discontinuing the Rexulti dose. Today Jennifer shares that her mood and energy improved. Is not experiencing any side effects. Denies current SI thoughts. Denies any itching or rashes currently. Has been able to tolerate the increase in Pristiq. Noticed a minor improvement in her mood and anxiety with it. Has been more stressed related to work, family, and holiday related stressors. Notices that she gets very stressed when she steps into work. Discussed ways reasons related to this. She continues to be engaged in therapy. Works with a therapist every 2 weeks. She has been tracking her mood and menstrual cycles. Noticed that her mood improved once she got her period. Then mood improved 3 days prior to her ovulation. Risks and benefits of the medication, including any black box warnings, were discussed with the patient. Interval Progress: Slightly improved PATIENT DATA: Generalized Anxiety Disorder Scale (SUKHWINDER-7) SUKHWINDER - 7 SCORES 02/11/2023 03/07/2023 03/21/2023 SUKHWINDER-7 Score 7 10 16 (0-4) minimal anxiety, (5-9) mild anxiety, (10-14) moderate anxiety, (15-21) severe anxiety Patient Health Questionnaire (PHQ-9) PHQ-9 02/11/2023 03/07/2023 03/21/2023 Score 19 22 13 (0-4) minimal depression, (5-9) mild depression, (10-14) moderate depression, (15-19) moderately severe depression, (20-27) severe depression PROMIS Global Health PROMIS Global Health - (T-Scores - the mean of general population = 50. Five points is a clinically meaningful difference.) 04/15/2022 08/11/2022 02/08/2023 Physical T-Score 54.1 42.3 42.3 Mental T-Score 48.3 31.3 33.8 PAST MEDICAL HISTORY Diagnosis Date Appendicitis 01/2019 Cold sores Depression Previous suicide attempt Exercise-induced asthma PMH - PAST MEDICAL HISTORY OF 11/2004 normal color vision Varicella age 2 years PAST SURGICAL HISTORY Procedure Laterality Date EXTRACTION, ERUPTED TOOTH OR EXPOSED ROOT (ELEVATION AND/OR FORCEPS REMOVAL) LAPAROSCOPIC APPENDECTOMY 01/2019 Current Outpatient Medications Medication Sig Dispense Refill desvenlafaxine ER (PRISTIQ) 100 mg 24 hr tablet Take 1 tablet by mouth once daily. (Patient not taking: Reported on 03/21/2023) 30 tablet 0 brexpiprazole (REXULTI) 0.25 mg tablet Take 1 tablet by mouth once daily. (Patient not taking: Reported on 03/21/2023) 30 tablet 0 hydrOXYzine HCl (ATARAX) 10 mg tablet Take 1 tablet by mouth three times a day as needed. (Patient not taking: Reported on 03/21/2023) 90 tablet 0 naproxen sodium (ALEVE) 220 mg tablet Take 1 tablet by mouth two times a day with meals. TAKE WITH FOOD vitamin b complex tab Take 1 tablet by mouth once daily. Biotin 1 mg tab Take 1 tablet by mouth. valACYclovir (VALTREX) 1 gram Take 1 tablet by mouth twice daily. For cold sore outbreak 6 tablet 5 LORATADINE ORAL Take by mouth. fluticasone (FLONASE) 50 mcg/actuation nasal spray Use 2 Sprays in each nostril once daily. Rinse mouth after use. (Patient taking differently: Use 2 Sprays in each nostril once daily. Rinse mouth after use.... uses as needed) 1 Bottle 1 gswqeglk-rbrn-XY-calcium-mins 18 mg iron-400 mcg-500 mg Ca tab multivitamin (OPTIVITE P.M.T. ORAL) albuterol HFA (VENTOLIN HFA) 90 mcg/actuation inhaler Inhale 2 Puffs as instructed every 4 hours as needed for Wheezing/Shortness of Breath. 1 Inhaler 0 No current facility-administered medications for this visit. ROS: See HPI PFSH: See HPI VITAL SIGNS: There were no vitals filed for this visit. MENTAL STATUS EXAM: CONSTITUTIONAL: Well groomed, Casually dressed ORIENTATION: Person, Place, Time and Situation MEMORY: Recent intact, Remote intact, Immediate intact CONCENTRATION: Normal MOOD: euthymic AFFECT: Full and appropriate to topic SPEECH : Clear & distinct LANGUAGE : Normal ASSOCIATIONS: Intact THOUGHT PROCESS : Logical, Coherent, and Rational PROGRESSION : There was no evidence of disturbance in thought perception or progression. FUND OF KNOWLEDGE : Appropriate and Adequate SUICIDE: None HOMICIDE: None DATA REVIEWED: Psychiatric scales and Electronic medical record DIAGNOSIS: PRIMARY: Mood Disorder Secondary : Anxiety Disorder Generalized Anxiety Disorder Other : none GAF: -60-51 Moderate symptoms or moderate difficulty in social, occupational or school functioning. TREATMENT PLAN: 1. Increase Lamictal to 25 mg after 4 full weeks on the 12.5 mg dose. 2. Utilize hydroxyzine consistently to manage breakthrough anxiety symptoms. 3. Continue Pristiq at the same dose. 4. Continue mood tracking. 5. Continue individual psychotherapy 2 times a month. MEDICATION CHANGES: - Reviewed Lamictal titration & risk of severe rash. Instructed to call PAIGE if this occurs. - see treatment plan Follow Up: 6 weeks I spent a total of 38 minutes on the date of the service which included preparing to see the patient, [id number] patient care, completing clinical documentation, obtaining and/or reviewing separately obtained history, counseling and educating the patient/family/caregiver, ordering medications, tests, or procedures, independently interpreting results (not separately reported), and communicating results to the patient/family/caregiver. ADD ON PSYCHOTHERAPY CODE : No SIGNATURE: Dyan Corey APRN.CNP PATIENT NAME: Herminia Pinon Bull DATE: March 21, 2023 TIME: 4:31 PM documented in this encounter [facility] 02-28-2023 Miscellaneous Notes See telephone encounter. documented in this encounter [facility] 02-12-2023 Instructions Dyan Corey APRN.CNP - 02/12/2023 11:14 AM EDT Ken Herminia, It was good to meet and talk with you today. Below is a summary of the plan that we discussed during your appointment for reference. Of course, if you have any questions or concerns do not hesitate to reach out to me via a message or call. Best, Dyan Corey APRN.CNP PLAN AND FOLLOW UP: YOU SHOULD SEEK IMMEDIATE MEDICAL ATTENTION AT THE NEAREST EMERGENCY DEPARTMENT OR BY CALLING 911, IF ANY OF THE FOLLOWING OCCURS: - New or worsening thoughts of harming yourself (suicidal thoughts) or others (homicidal thoughts) - Not feeling safe at home or worrying about your ability to remain safe at home If you are having thoughts of harming yourself or others, then you can: - Call the National Suicide Hotline at 4-770-RQFUILP ( ) or 4-789-956-TALK (1195) - Text 4HOPE to 598684 Medication Updates: 1) Pristiq 100 mg XR - take 1 tablet once every morning with breakfast. 2) Lamictal 25 mg - take 1 tablet once daily for 14 days, then take 2 tablets once daily for 14 days, then take 3 tablets once daily after that. Next appointment: --Schedule in 4 to 5 weeks or sooner if needed -- You may call the department appointment line at [phone] to schedule your appointment. -- Please call my nurse Hilda at [phone] or send me a message in [employer]ert with any questions or concerns between appointments. documented in this encounter [facility] 02-12-2023 History of Presen t illness Narrative Images from the original note were not included. PSYC NEW - PSYCHIATRIC ASSESSMENT Patient was seen for an initial evaluation. With the patient consent, visit was performed virtually. All information is from Patient report except when noted. This evaluation is NOT intended for forensic, disability or child custody purposes. I have communicated my name and active licensure. The patient's identity and physical location were verified at the time of this visit. Either the patient or their legal manufacturers service representative has been informed of the risks and benefits of -- and alternatives to -- treatment through a remote evaluation and consents to proceed with the evaluation remotely. AGE: [age] year old RACE: White MARITAL STATUS: for 6 years. Reports that is very supportive. Some of 's medical conditions stop them from having children. She always worries about passing her depression on to her children. Has rescue dog and cat. 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 She likes her job but misses the interaction with animals and people. REFERRAL SOURCE: PCP - Светлана Srinivasan CHIEF COMPLAINT: Mainly I am looking for any recommendations for me to do better and feel better. We have talked about adding a medication with Светлана but I have had some bad experiences and I was being cautious. I have been seeing a therapist every other week.I know that I need to work on my habits and life choices. HPI: Today Jennifer shares that it is hard for her to differentiate between her depression and anxiety symptoms. Started struggling with her mental health during puberty. Hard for her when her older brother left for college. Huggins down and not herself during middle school years. When she was 16 years old she reached out for help. She started counseling and Prozac at that time. Noticed some mood fluctuations. Experienced months of depression and then she would start to feel better. Had severe depressive episodes in college. Feels that these episodes coincide with relationship issues with mother. Had one suicide attempt that was interrupted by her boyfriend in college. She was planning on jumping. She was living at home and commuting to college. She had an inpatient admission at [facility]. Then saw Dr. Gibbons at the counseling center. Currently struggles with suicidal thoughts. Denies any intentions or plans. These thoughts can be triggered by stress or sometimes are intrusive in nature. Discussed bipolar disorder in general. Unsure if she was experiencing any hypomanic episodes. She has noticed a significant worsening of depressive symptoms around her menstrual cycle. She has been on control in the past but does not recall if her mood was any different. Currently she is not on control. Currently on Pristiq. Noticed that it has been helpful. The first medication she tried was Prozac. Huggins that Prozac was helpful for a while but then it lost its efficacy. The highest she took was 40 mg. Denies any side effects. Unsure of her medications that she took in the past. Has taken Wellbutrin in the past. At first it helped but then she experienced tremors with the increase in dose. Experienced some dizziness as well. Was prescribed Invega 3 mg at bedtime when she was discharged from the hospital. She was on Abilify and Immipramine prior to her inpatient hospitalization. She had gained 30 lbs on her medications at that time. Sleep: She has a hard time winding down and sleeping. Able to maintain sleep. is a peter and has a hard time sleeping when he is not around. Interest: diminished Guilt: quite a bit Energy: fluctuates with mood or stress Concentration: fair Appetite: normal. Tends to soothe self by over eating. Psychomotor Activity: psychomotor activity was WNL. Suicide: Thoughts-No plan, No means, No intent Phobias: no irrational fears Memory: Poor. Anxiety: high. Tends to be a worry wort per patient. Engages in rumination. Obsessions: none Compulsions: none Mary: Denies any symptoms of mary or hypomanic symptoms currently. Will monitor for any hypomanic symptoms. PTSD: The patient denies being expose to or witnessing traumatic events. Self Mutilation: Denies. Has overly picked at her acne. PAST MEDICAL HISTORY Diagnosis Date Appendicitis 01/2019 Cold sores Depression Previous suicide attempt Exercise-induced asthma PMH - PAST MEDICAL HISTORY OF 11/2004 normal color vision Varicella age 2 years PAST SURGICAL HISTORY Procedure Laterality Date EXTRACTION, ERUPTED TOOTH OR EXPOSED ROOT (ELEVATION AND/OR FORCEPS REMOVAL) LAPAROSCOPIC APPENDECTOMY 01/2019 Current Outpatient Medications Medication Sig Dispense Refill albuterol HFA (VENTOLIN HFA) 90 mcg/actuation inhaler Inhale 2 Puffs as instructed every 4 hours as needed for Wheezing/Shortness of Breath. 1 Inhaler 0 Biotin 1 mg tab Take 1 tablet by mouth. brexpiprazole (REXULTI) 0.5 mg tablet Take 1 tablet by mouth once daily. 30 tablet 1 desvenlafaxine ER (PRISTIQ) 50 mg 24 hr tablet Take 1 tablet by mouth once daily. 90 tablet 1 fluticasone (FLONASE) 50 mcg/actuation nasal spray Use 2 Sprays in each nostril once daily. Rinse mouth after use. (Patient taking differently: Use 2 Sprays in each nostril once daily. Rinse mouth after use.... uses as needed) 1 Bottle 1 LORATADINE ORAL Take by mouth. llwdwvjo-ltlw-JC-calcium-mins 18 mg iron-400 mcg-500 mg Ca tab multivitamin (OPTIVITE P.M.T. ORAL) naproxen sodium (ALEVE) 220 mg tablet Take 1 tablet by mouth two times a day with meals. TAKE WITH FOOD valACYclovir (VALTREX) 1 gram Take 1 tablet by mouth twice daily. For cold sore outbreak 6 tablet 5 vitamin b complex tab Take 1 tablet by mouth once daily. No current facility-administered medications for this visit. VITAL SIGNS: There were no vitals filed for this visit. ROS: All other systems negative. PSYCHIATRIC HISTORY: Prior Diagnosis: See HPI Prior Provider: Previously followed by a psychiatrist at [facility] Therapist: Followed at [facility] by Pablito. Also sees a couples therapist with her to manage the relationship issues with her side of the family. Current Bow Rehairer: No Last Hospitalization: See HPI ECT: No Previous Discontinued Psychiatric Med Trials: See HPI SUBSTANCE USE HISTORY: Nicotine: None Caffeine: Coffee, 1 cups/day Alcohol: No history of use or dependence Marijuana: No history of use or dependence Cocaine: No history of use or dependence Opiods: No history of use or dependence SPIRITUALITY: Scientology [facility]: Herminia Gottlieb is the youngest of 3 siblings. The patient was born and raised in [place], [place]. She completed Associates degree. She described her childhood as Stressful. The patient lives with spouse and has 2 pets. Service: None Legal: Pt. denied any past legal history FAMILY PSYCHIATRIC HISTORY: Maternal Uncle - Depression Mother - mental health issues but not willing to seek help. Personality disorder? PATIENT DATA: Generalized Anxiety Disorder Scale (SUKHWINDER-7) SUKHWINDER - 7 SCORES 01/25/2022 02/11/2023 SUKHWINDER-7 Score 11 7 (0-4) minimal anxiety, (5-9) mild anxiety, (10-14) moderate anxiety, (15-21) severe anxiety Patient Health Questionnaire (PHQ-9) PHQ-9 01/25/2022 06/26/2022 02/11/2023 Score 21 6 19 (0-4) minimal depression, (5-9) mild depression, (10-14) moderate depression, (15-19) moderately severe depression, (20-27) severe depression PROMIS Global Health PROMIS Global Health - (T-Scores - the mean of general population = 50. Five points is a clinically meaningful difference.) 04/15/2022 08/11/2022 02/08/2023 Physical T-Score 54.1 42.3 42.3 Mental T-Score 48.3 31.3 33.8 MENTAL STATUS EXAMINATION: Appearance: Casually dressed Behavior: Behaves appropriately during the encounter Social relatedness: Tearful Speech/Language: The patient demonstrates appropriate tone, prosody, edith, phonetics, and syntax Mood: sad depressed Affect: Full and appropriate to topic Orientation: Person, Place, Time and Situation Associations: Intact and linear Hallucinations: None Delusions: None Suicidal Ideation: Thoughts of , but not suicide. Homicidal Ideation: No homicidal ideation, intent or plan. Insight: Appropriate Judgment: Appropriate MINI-MENTAL STATUS EXAMINATION: Unable to complete due to time constraint. DIAGNOSIS: PRIMARY: Mood Disorder: MDD, recurrent, severe without psychotic features vs. PMDD vs. Bipolar 2 disorder SECONDARY: Anxiety Disorder Generalized Anxiety Disorder GAF: -60-51 Moderate symptoms or moderate difficulty in social, occupational or school functioning. PLAN: 1. Increase Pristiq to address mood and anxiety symptoms. 2. Start Lamictal to address severe symptoms of depression. 3. Continue individual psychotherapy. 4. Track mood daily to rule our PME or PMDD. Medication Updates: 1) Pristiq 100 mg XR - take 1 tablet once every morning with breakfast. 2) Lamictal 25 mg - take 1 tablet once daily for 14 days, then take 2 tablets once daily for 14 days, then take 3 tablets once daily after that. The effects and side effects of all the medications were reviewed in detail with the patient. She is aware of the rash side effect associated with Lamictal. Patient is in agreement with the treatment plan and aware to reach out with any questions, concerns, or worsening of symptoms prior to the next appointment. DISPOSITION: Follow up in 4 to 5 weeks. I spent a total of 75 minutes on the date of the service which included preparing to see the patient, [id number] patient care, completing clinical documentation, obtaining and/or reviewing separately obtained history, counseling and educating the patient/family/caregiver, ordering medications, tests, or procedures, communicating with other HCPs (not separately reported), independently interpreting results (not separately reported), and communicating results to the patient/family/caregiver. ADD ON PSYCHOTHERAPY CODE : No SIGNATURE: Dyan Corey APRN.CNP PATIENT NAME: Herminia Pinon [facility] DATE: February 12, 2023 TIME: 9:04 AM PAGER : documented in this encounter [facility] 02-06-2023 Miscellaneous Notes Called pt and scheduled consult to Psych. And placed on waitl ist for sooner appt. Please call pt to set up appt with Adult Psych. Lainey Valdes Ma Referral placed. Светлана Srinivasan APRN.CNP Patient calls and states that her therapist is recommending that patient see psychiatry. Patient asking provider can place a psychiatry referral? Jessica Trivedi RN documented in this encounter [facility] 12-23-2022 Instructions Светлана Srinivasan APRN.CNP - 12/23/2022 6:21 PM EDT Schedule the EMG. Ortho referral is placed. documented in this encounter [facility] 12-23-2022 History of Presen t illness Narrative This is a 27 year old female who presents today with: Patient presents with: Recheck: CTS flare up R wrist x 1 month- using ice, splinting and taking Aleve; R hand dominant HISTORY OF PRESENT ILLNESS: Herminia Gottlieb is a 27 year old female. Patient presents with: Recheck: CTS flare up R wrist x 1 month- using ice, splinting and taking Aleve; R hand dominant Pt presents today with complaint of pain in the right wrist starting a month ago. Some weakness. No known injury. Maybe a little in the shoulder. Given shoulder exercises by chiropractor. Has had a couple of flares in the past, and would improve in a day or two, but this time, it isn't improving. Notices a little bit of swelling in the hand, mostly thumb and index finger. Refers that will have general soreness, weakness, stiffness. Occ n/t. Right-handed. Started taking aleve everyday. Wearing a splint. Icing. B-vitamin. Stretching. PAST MEDICAL HISTORY: PAST MEDICAL HISTORY Diagnosis Date Appendicitis 01/2019 Cold sores Depression Previous suicide attempt Exercise-induced asthma PMH - PAST MEDICAL HISTORY OF 11/2004 normal color vision Varicella age 2 years PAST SURGICAL HISTORY Procedure Laterality Date EXTRACTION, ERUPTED TOOTH OR EXPOSED ROOT (ELEVATION AND/OR FORCEPS REMOVAL) LAPAROSCOPIC APPENDECTOMY 01/2019 ALLERGIES Seasonal Allergies MEDICATIONS Current Outpatient Medications Medication Sig Biotin 1 mg tab Take 1 tablet by mouth. brexpiprazole (REXULTI) 0.5 mg tablet Take 1 tablet by mouth once daily. desvenlafaxine ER (PRISTIQ) 50 mg 24 hr tablet Take 1 tablet by mouth once daily. valACYclovir (VALTREX) 1 gram Take 1 tablet by mouth twice daily. For cold sore outbreak LORATADINE ORAL Take by mouth. fluticasone (FLONASE) 50 mcg/actuation nasal spray Use 2 Sprays in each nostril once daily. Rinse mouth after use. (Patient taking differently: Use 2 Sprays in each nostril once daily. Rinse mouth after use.... uses as needed) kvoiznpg-mgpz-RX-calcium-mins 18 mg iron-400 mcg-500 mg Ca tab multivitamin (OPTIVITE P.M.T. ORAL) albuterol HFA (VENTOLIN HFA) 90 mcg/actuation inhaler Inhale 2 Puffs as instructed every 4 hours as needed for Wheezing/Shortness of Breath. vitamin b complex tab Take 1 tablet by mouth once daily. No current facility-administered medications for this visit. FAMILY HISTORY Problem Relation Age of Onset other (mental health) Mother Stroke Father other (Epilepsy) Father Anxiety disorder Sister Depression Sister Asthma Sister Prematurity Sister other (one kidney) Sister Anxiety disorder Brother Stroke Maternal Grandfather Alzheimer's Disease Maternal Grandfather Heart Paternal Grandmother Stroke Paternal Grandmother Social History Tobacco Use Smoking status: Never Smokeless tobacco: Never Vaping Use Vaping Use: Never used Substance Use Topics Alcohol use: Yes Comment: rare Drug use: Never EXAM: BP 104/72 Pulse 94 Resp 16 LMP 08/23/2022 SpO2 98% PHYSICAL EXAM: General Appearance: Well appearing, alert, in no acute distress, well-hydrated, well nourished.. Skin: Skin color, texture, turgor normal, no suspicious rashes or lesions. Head: Normocephalic, no masses, lesions, tenderness or abnormalities. Eyes: Anicteric sclera. Extraocular movements are intact. . Extremities: No deformities, edema, skin discoloration, clubbing or cyanosis. Good capillary refill. . Neurologic: Gait normal. Shoulder : Location: right anterior shoulder Redness: no Warmth: no Tenderness to palpation: mild - deltoid area Swelling: no Range of motion: intact -- mildly less behind the back internal rotation than left. Empty can test: neg. Bilateral hands with + lisbet's and tinels. Right wrist with + finklestein's. ASSESSMENT/PLAN: 1. Bilateral hand pain - ICD9: 729.5, ICD10: M79.641, M79.642 (primary diagnosis) Get EMG. Suspect that she has mild CTS bilaterally. Also suspect De quervain's tendonitis on the right. Continue with the nsaids, splint, icing. - EMG(NEURO/NI) - CONSULT TO ORTHOPAEDICS 2. Acute pain of right shoulder - ICD9: 719.41, ICD10: M25.511 Continue the shoulder exercises. Nsaids. - CONSULT TO ORTHOPAEDICS Discussed treatment plan and patient voices understanding. Patient's questions answered appropriately. Medications and potential side effects were discussed and patient voices understanding. Return to the office as scheduled or as needed for worsening/no improvement. Светлана Srinivasan APRN.PATTERN MARKING SUPERVISOR documented in this encounter [facility] 08-28-2022 Instructions Светлана Srinivasan APRN.DANICA - 08/28/2022 8:16 AM EDT Start the omnicef. Fluconazole if needed. Start mucinex D if you can tolerate it. Start flonase (fluticasone). Let me know if you start the rexulti. documented in this encounter [facility] 08-28-2022 History of Presen t illness Narrative This is a 27 year old female who presents today with: Patient presents with: Follow Up: 2 week follow up HISTORY OF PRESENT ILLNESS: Herminia Gottlieb is a 27 year old female. Patient presents with: Follow Up: 2 week follow up Pt presents today for follow-up. She didn't start the rexulti. She did pick it up, so has available and she will call if she starts the medication. Refers that depression has been improved. She did get another job, which she starts next week. Is excited for the change. Refers continues with sinus symptoms. Primarily right-sided. White mucus. Puffy around right eye. Not really taking anything for symptoms. Unsure if yeast infection is completely cleared. Improved, but started menses, so hasn't been able to tell yet. PAST MEDICAL HISTORY: PAST MEDICAL HISTORY Diagnosis Date Appendicitis 01/2019 Cold sores Depression Previous suicide attempt Exercise-induced asthma PMH - PAST MEDICAL HISTORY OF 11/2004 normal color vision Varicella age 2 years PAST SURGICAL HISTORY Procedure Laterality Date EXTRACTION, ERUPTED TOOTH OR EXPOSED ROOT (ELEVATION AND/OR FORCEPS REMOVAL) LAPAROSCOPIC APPENDECTOMY 01/2019 ALLERGIES Seasonal Allergies MEDICATIONS Current Outpatient Medications Medication Sig brexpiprazole (REXULTI) 0.5 mg tablet Take 1 tablet by mouth once daily. desvenlafaxine ER (PRISTIQ) 50 mg 24 hr tablet Take 1 tablet by mouth once daily. valACYclovir (VALTREX) 1 gram Take 1 tablet by mouth twice daily. For cold sore outbreak LORATADINE ORAL Take by mouth. fluticasone (FLONASE) 50 mcg/actuation nasal spray Use 2 Sprays in each nostril once daily. Rinse mouth after use. (Patient taking differently: Use 2 Sprays in each nostril once daily. Rinse mouth after use.... uses as needed) cdjvholb-biez-CE-calcium-mins 18 mg iron-400 mcg-500 mg Ca tab multivitamin (OPTIVITE P.M.T. ORAL) albuterol HFA (VENTOLIN HFA) 90 mcg/actuation inhaler Inhale 2 Puffs as instructed every 4 hours as needed for Wheezing/Shortness of Breath. No current facility-administered medications for this visit. FAMILY HISTORY Problem Relation Age of Onset other (mental health) Mother Stroke Father other (Epilepsy) Father Anxiety disorder Sister Depression Sister Asthma Sister Prematurity Sister other (one kidney) Sister Anxiety disorder Brother Stroke Maternal Grandfather Alzheimer's Disease Maternal Grandfather Heart Paternal Grandmother Stroke Paternal Grandmother Social History Tobacco Use Smoking status: Never Smokeless tobacco: Never Vaping Use Vaping Use: Never used Substance Use Topics Alcohol use: Yes Comment: rare Drug use: Never EXAM: BP 120/66 Pulse 86 Resp 16 Wt 93.9 kg (207 lb) LMP 08/23/2022 SpO2 98% BMI 35.53 kg/m PHYSICAL EXAM: General Appearance: Well appearing, alert, in no acute distress, well-hydrated, well nourished.. Skin: Skin color, texture, turgor normal, no suspicious rashes or lesions. Head: Normocephalic, no masses, lesions, tenderness or abnormalities. + right maxillary tenderness. Eyes: Anicteric sclera. Pupils are equally round and reactive to light. Extraocular movements are intact. Ears: External ears normal, canals clear, Normal TMs bilaterally. Oropharynx: Lips, mucosa, and tongue normal, teeth and gums normal, oropharynx normal. Neck: Supple, no adenopathy Lungs: Lungs clear to auscultation. No wheezing, rhonchi, rales.. Heart: RRR without murmur, gallop, or rubs. No ectopy. Extremities: No deformities, edema, skin discoloration, clubbing or cyanosis. Neurologic: Gait normal. ASSESSMENT/PLAN: 1. Moderate episode of recurrent major depressive disorder (HCC) - ICD9: 296.32, ICD10: F33.1 (primary diagnosis) Symptoms improved/stable. She will continue to monitor. She will notify provider if she starts the Rexulti. 2. Bacterial sinusitis - ICD9: 473.9, 041.9, ICD10: J32.9, B96.89 - CEFDINIR 300 MG CAPSULE Continues with symptoms of sinusitis. We will go ahead and start cefdinir. She is encouraged to start Mucinex or Mucinex D. Also encouraged to use Flonase. If no improvement after this course, consider referral to ENT for further evaluation of sinusitis. 3. Candidiasis - ICD9: 112.9, ICD10: B37.9 Unsure if completely cleared from last treatment. However since she is starting another course of antibiotics, we will go ahead and send a new prescription for the fluconazole in case she needs treatment again. - FLUCONAZOLE 150 MG TABLET Discussed treatment plan and patient voices understanding. Patient's questions answered appropriately. Medications and potential side effects were discussed and patient voices understanding. Return to the office as scheduled or as needed for worsening/no improvement. Светлана Srinivasan APRN.DANICA documented in this encounter [facility] 08-12-2022 Instructions Светлана Srinivasan APRN.CNP - 08/12/2022 8:23 AM EDT Images from the original note were not included. Start the doxycycline. Start the fluconazole. Start the rexulti in 3 days. Recheck in 1-2 weeks. Let me know sooner, if you need. documented in this encounter [facility] 08-12-2022 History of Presen t illness Narrative This is a 27 year old female who presents today with: Patient presents with: Acute Visit: vaginal discharge HISTORY OF PRESENT ILLNESS: Herminia Pinon Bull is a 27 year old female. Patient presents with: Acute Visit: vaginal discharge Pt presents today with worsening depression. Refers that feels it is a mix of burn-out and depression. Has been contemplating starting the abilify. Tired. Appetite decreased. Has counseling appt scheduled -- 08/21. Passive thoughts of . No active plan/intent. Refers that she doesn't feel productive. Doesn't feel like she matters at work -- they probably wouldn't even know if I wasn't there. Some family stressors with parents. Refers that she still is having right facial pain/tenderness. Went to the dentist to r/o dental source. + PND. Finished augmentin yesterday for sinus infection. Thinks she has a yeast infection. + discharge. No odor. + itch. No concern for STDs. Tried monostat without effect. PAST MEDICAL HISTORY: PAST MEDICAL HISTORY Diagnosis Date Appendicitis 01/2019 Cold sores Depression Previous suicide attempt Exercise-induced asthma PMH - PAST MEDICAL HISTORY OF 11/2004 normal color vision Varicella age 2 years PAST SURGICAL HISTORY Procedure Laterality Date EXTRACTION, ERUPTED TOOTH OR EXPOSED ROOT (ELEVATION AND/OR FORCEPS REMOVAL) LAPAROSCOPIC APPENDECTOMY 01/2019 ALLERGIES Seasonal Allergies MEDICATIONS Current Outpatient Medications Medication Sig desvenlafaxine ER (PRISTIQ) 50 mg 24 hr tablet Take 1 tablet by mouth once daily. valACYclovir (VALTREX) 1 gram Take 1 tablet by mouth twice daily. For cold sore outbreak LORATADINE ORAL Take by mouth. uvauknae-gkpy-IP-calcium-mins 18 mg iron-400 mcg-500 mg Ca tab multivitamin (OPTIVITE P.M.T. ORAL) albuterol HFA (VENTOLIN HFA) 90 mcg/actuation inhaler Inhale 2 Puffs as instructed every 4 hours as needed for Wheezing/Shortness of Breath. fluticasone (FLONASE) 50 mcg/actuation nasal spray Use 2 Sprays in each nostril once daily. Rinse mouth after use. (Patient taking differently: Use 2 Sprays in each nostril once daily. Rinse mouth after use.... uses as needed) No current facility-administered medications for this visit. FAMILY HISTORY Problem Relation Age of Onset other (mental health) Mother Stroke Father other (Epilepsy) Father Anxiety disorder Sister Depression Sister Asthma Sister Prematurity Sister other (one kidney) Sister Anxiety disorder Brother Stroke Maternal Grandfather Alzheimer's Disease Maternal Grandfather Heart Paternal Grandmother Stroke Paternal Grandmother Social History Tobacco Use Smoking status: Never Smokeless tobacco: Never Vaping Use Vaping Use: Never used Substance Use Topics Alcohol use: Yes Comment: rare Drug use: Never EXAM: BP 104/80 Pulse 102 Resp 16 Wt 95.7 kg (211 lb) LMP 07/23/2022 (Exact Date) SpO2 96% BMI 36.22 kg/m PHYSICAL EXAM: General Appearance: Well appearing, alert, in no acute distress, well-hydrated, well nourished. Skin: Skin color, texture, turgor normal, no suspicious rashes or lesions. Head: Normocephalic, no masses, lesions, tenderness or abnormalities. + sinus tenderness. Eyes: Anicteric sclera. Pupils are equally round and reactive to light. Extraocular movements are intact. Ears: External ears normal, canals clear, Normal TMs bilaterally. Oropharynx: Lips, mucosa, and tongue normal, teeth and gums normal, oropharynx normal. Neck: Supple, no adenopathy Lungs: Lungs clear to auscultation. No wheezing, rhonchi, rales. Heart: RRR without murmur, gallop, or rubs. No ectopy. Extremities: No deformities, edema, skin discoloration, clubbing or cyanosis. Good capillary refill. Neurologic: Gait normal. ASSESSMENT/PLAN: 1. Moderate episode of recurrent major depressive disorder (HCC) - ICD9: 296.32, ICD10: F33.1 (primary diagnosis) Discussed options. She is agreeable to starting abilify or rexulti. Co-pay card printed for the rexulti. - BREXPIPRAZOLE 0.5 MG TABLET Recheck in 1-2 weeks -- sooner if needed. Continue with upcoming counseling appt, as scheduled. 2. Bacterial sinusitis - ICD9: 473.9, 041.9, ICD10: J32.9, B96.89 - Will begin treatment with Doxycycline - Supportive care with plenty of fluids, rest, and analgesia prn. - DOXYCYCLINE HYCLATE 100 MG TABLET 3. Candidiasis - ICD9: 112.9, ICD10: B37.9 Start fluconazole. - FLUCONAZOLE 150 MG TABLET Discussed treatment plan and patient voices understanding. Patient's questions answered appropriately. Medications and potential side effects were discussed and patient voices understanding. Return to the office as scheduled or as needed for worsening/no improvement. Светлана Srinivasan APRN.CNP The patient indicates understanding of these issues and agrees with the plan. documented in this encounter [facility] 08-11-2022 Miscellaneous Notes Reason for Call: External vaginal itching and white discharge. Outcome: Disposition- See pcp within 3 days. Warm transfer to [place] in . Offered EC/UC as an option and given hours. Reason for Disposition [1] Symptoms of a yeast infection (i.e., itchy, white discharge, not bad smelling) AND [2] not improved > 3 days following CARE ADVICE Itching or rash of external female genital area (vulva) Answer Assessment - Initial Assessment Questions 1. SYMPTOM: vaginal discharge and itching that is white with no odor. Pt states she is finishing a course of Augmentin for a sinus infection. Feels she has a yeast infection. Tried otc monistat and symptoms are persisting. 2. LOCATION: external vaginal area. 3. ONSET: started 6 days ago. 4. PAIN: some mild/moderate cramping similar to a menstrual cramp, that started Friday. Sometimes having a bm helps relieve cramping. 5. CAUSE: yeast infection, used monistat but it is not helping. 6. OTHER SYMPTOMS: 4/10 itching external. Also poor appetite. 7. : denies, LMP 07/23/22. Protocols used: Vaginal Uznfukxp-JZRYE-ER, Vulvar Cgvisfpx-UGTXK-VP documented in this encounter [facility] 07-10-2022 Miscellaneous Notes As stated below PA was previously ran and not offered on formulary. [facility] and they advised will only honor goodrx coupon if cost is not lost. This medication is expensive $300 for 90 day supply so will not honor. Patient aware and does not want to change so will call other pharmacies to see if coupon is honored anywhere and than let office know Lila Ortiz Ma Pt called back and was having a problem with the pharmacy. I called and spoke with the pharmacist and they are not able to use the Good RX for 30 or 90. This would need to be sent thru for a PA. Pharmacist reports he just faxed over the [employer] for PRISTIQ. Pt aware Prior authorization needs to be done to run thru insurance. Melissa Steinberg LPN Patient does not want to change medications. She wants to continue using Good Rx and paying out of pocket for medication. She says this is what she has been doing. Melissa Ashton RN Left message for patient to contact office and speak with nurse. Please check with patient and see what she would like. Received PA request from pharmacy but when completed advised Pristiq is not covered on patient drug plan. No appeal can be done due to not even offering this on drug plan for coverage. Please advise medication will need changed or patient will need to use goodrx and pay out of pocket Lila Ortiz Ma documented in this encounter [facility] 07-03-2022 Instructions Светлана Srinivasan APRN.CNP - 07/03/2022 10:45 AM EST Same medication. Recheck in 6 months. documented in this encounter [facility] 07-03-2022 History of Presen t illness Narrative This is a 26 year old female who presents today with: Patient presents with: Follow Up HISTORY OF PRESENT ILLNESS: Herminia Hindsm is a 26 year old female. Patient presents with: Follow Up Pt presents today to follow-up. Refers that she is doing well on the pristiq. Would not change anything. Hasn't gained weight. No cons to the medication. Completely off the prozac. Sleeping well. Appetite good. Occ passive thoughts of , but no plans/intent and this is improved from previous. PAST MEDICAL HISTORY: PAST MEDICAL HISTORY Diagnosis Date Appendicitis 01/2019 Cold sores Depression Previous suicide attempt Exercise-induced asthma PMH - PAST MEDICAL HISTORY OF 11/2004 normal color vision Varicella age 2 years PAST SURGICAL HISTORY Procedure Laterality Date EXTRACTION, ERUPTED TOOTH OR EXPOSED ROOT (ELEVATION AND/OR FORCEPS REMOVAL) LAPAROSCOPIC APPENDECTOMY 01/2019 ALLERGIES Seasonal Allergies MEDICATIONS Current Outpatient Medications Medication Sig desvenlafaxine ER (PRISTIQ) 50 mg 24 hr tablet Take 1 tablet by mouth once daily. valACYclovir (VALTREX) 1 gram Take 1 tablet by mouth twice daily. For cold sore outbreak LORATADINE ORAL Take by mouth. fluticasone (FLONASE) 50 mcg/actuation nasal spray Use 2 Sprays in each nostril once daily. Rinse mouth after use. (Patient taking differently: Use 2 Sprays in each nostril once daily. Rinse mouth after use.... uses as needed) eprhbdfu-ibvu-TM-calcium-mins 18 mg iron-400 mcg-500 mg Ca tab multivitamin (OPTIVITE P.M.T. ORAL) albuterol HFA (VENTOLIN HFA) 90 mcg/actuation inhaler Inhale 2 Puffs as instructed every 4 hours as needed for Wheezing/Shortness of Breath. No current facility-administered medications for this visit. FAMILY HISTORY Problem Relation Age of Onset other (mental health) Mother Stroke Father other (Epilepsy) Father Anxiety disorder Sister Depression Sister Asthma Sister Prematurity Sister other (one kidney) Sister Anxiety disorder Brother Stroke Maternal Grandfather Alzheimer's Disease Maternal Grandfather Heart Paternal Grandmother Stroke Paternal Grandmother Social History Tobacco Use Smoking status: Never Smokeless tobacco: Never Vaping Use Vaping Use: Never used Substance Use Topics Alcohol use: Yes Comment: rare Drug use: Never EXAM: BP 108/74 Pulse 85 Resp 16 Ht 162.6 cm (5' 4) Wt 96.2 kg (212 lb) LMP 06/30/2022 (Approximate) SpO2 96% BMI 36.39 kg/m PHYSICAL EXAM: General Appearance: Well appearing, alert, in no acute distress, well-hydrated, well nourished.. Skin: Skin color, texture, turgor normal, no suspicious rashes or lesions. Head: Normocephalic, no masses, lesions, tenderness or abnormalities. Eyes: Anicteric sclera. Extraocular movements are intact. . Lungs: Lungs clear to auscultation. No wheezing, rhonchi, rales.. Heart: RRR without murmur, gallop, or rubs. No ectopy. Neurologic: Gait normal. ASSESSMENT/PLAN: 1. Anxiety and depression - ICD9: 300.00, 311, ICD10: F41.9, F32.A Doing well with current medication regimen. Continue without change. Plan to recheck in 6 months. Sooner if needed. - DESVENLAFAXINE SUCCINATE ER 50 MG TABLET,EXTENDED RELEASE 24 HR Discussed treatment plan and patient voices understanding. Patient's questions answered appropriately. Medications and potential side effects were discussed and patient voices understanding. Return to the office as scheduled or as needed for worsening/no improvement. Светлана Srinivasan APRN.PATTERN MARKING SUPERVISOR This note was partially generated using [employer] recognition system. Note was reviewed for accuracy. There may be minor misspellings or grammar miscues with 115 network disks voice recognition. documented in this encounter [facility] 06-10-2022 Miscellaneous Notes Patient phones requesting refills as follows: Requested Prescriptions Pending Prescriptions Disp Refills desvenlafaxine ER (PRISTIQ) 50 mg 24 hr tablet 30 tablet 1 Sig: Take 1 tablet by mouth once daily. Decrease prozac to 20 mg daily. Increase pristiq to 50 mg daily. KEISHA-05/28/22 Labs-02/13/22 NOV-07/03/22 med filled 04/17/22 Please review and advise. Annabelle Cason LPN documented in this encounter [facility] 05-28-2022 Instructions Светлана Srinivasan APRN.PATTERN MARKING SUPERVISOR - 05/28/2022 10:21 AM EST Home going instructions for Viral Upper Respiratory Infections In General: - Drink lots of fluids - at least one gallon of non-caffeinated liquids per day - Make sure you are eating well - Get plenty of rest - at least 8 hours of sleep per night for adults - ibuprofen 600mg every 8 hours as needed for discomfort - acetaminophen 500mg every 4-6 hours as needed for fever and discomfort. - may alternate ibuprofen and acetaminophen For nasal congestion try: -Vaporizers, Neti Pot, humidifiers, hot showers, and hot fluids help open respiratory and sinus passages. - [place] may offer relief of nasal and head congestion 2-3 times per day as needed. - Sudafed is a safe and effective decongestant for people who do not have high blood pressure. Do not take Sudafed if you have ever been told that you have high blood pressure or hypertension. General dosing guidelines: Immediate release: 60 mg every 4-6 hours; Extended release: 120 mg every 12 hours or 240 mg every 24 hours; maximum: 240 mg/24 hours. For Sore Throat try: - Salt water gargles every 2-3 hours as needed for discomfort - Chloraceptic spray or throat lozenges (Cepacol) For Cough and chest congestion try one of the following: - Mucinex or Robitussin are expectorants. You may take 200-400 mg every 4 hours to a not to exceed 2,400 mg/day OR Extended release tablet: 600-1200 mg every 12 hours, not to exceed 2,400 mg/day - Delsym is a cough suppressant: Oral: 10-20 mg every 4 hours or 30 mg every 6-8 hours OR Extended release: 60 mg twice daily; maximum: 120 mg/day - If you have high blood pressure or hypertension it is safe to take Coricidin HBP Cough & Cold. If you smoke it is advised that you quit smoking. CONTACT YOUR DOCTOR IF: You have fevers for longer than five days or a fever more than 102 degrees You are still sick after 10 days After several days you are getting worse rather than better 4. You develop nausea, vomiting, diarrhea, or a rash. Go to the ER if you - experience pressure or pain in your chest - experience difficulty swallowing - experience difficulty breathing Follow up in 7-10 days or before if your symptoms get worse. documented in this encounter [facility] 05-28-2022 History of Presen t illness Narrative 26 year old female with c/o URI sx over the last day. Started w/ cold symptoms yesterday. Vomited after taking her medicine this morning on an empty stomach. No diarrhea. Sore throat: Yes. Runny/stuffy nose: Yes. Postnasal drip: Yes. Throat clearing: Yes. Sinus pain/ pressure: Yes. Mostly on the forehead. Teeth pain: No. Headache Yes. Body aches No. Ear pain: Yes. More of a pressure sensation. Cough: a little bit. . Production: Yes Fever: Yes. Tmax 99.4. Hx asthma Yes. Hx pneumonia No. Smoker: No. OTC meds tried: tylenol cold/flu. ACTIVE PROBLEM LIST Recurrent Major Depressive Disorder, in Remission (Hcc) Herpes Simplex Episodic Lightheadedness Anxiety and Depression Current Outpatient Medications Medication Sig Dispense Refill desvenlafaxine ER (PRISTIQ) 50 mg 24 hr tablet Take 1 tablet by mouth once daily. Decrease prozac to 20 mg daily. Increase pristiq to 50 mg daily. 30 tablet 1 valACYclovir (VALTREX) 1 gram Take 1 tablet by mouth twice daily. For cold sore outbreak 6 tablet 5 FLUoxetine (PROZAC) 10 mg capsule One pill by mouth daily X 1 week; then every other day until gone. 30 capsule 0 LORATADINE ORAL Take by mouth. fluticasone (FLONASE) 50 mcg/actuation nasal spray Use 2 Sprays in each nostril once daily. Rinse mouth after use. (Patient taking differently: Use 2 Sprays in each nostril once daily. Rinse mouth after use.... uses as needed) 1 Bottle 1 mzqqeznr-mltk-FQ-calcium-mins 18 mg iron-400 mcg-500 mg Ca tab multivitamin (OPTIVITE P.M.T. ORAL) albuterol HFA (VENTOLIN HFA) 90 mcg/actuation inhaler Inhale 2 Puffs as instructed every 4 hours as needed for Wheezing/Shortness of Breath. 1 Inhaler 0 No current facility-administered medications for this visit. OBJECTIVE: BP 104/72 Pulse 108 Temp 37.2 C (98.9 F) Resp 18 LMP 01/31/2022 SpO2 95% General Appearance: Well appearing, alert, in no acute distress, well-hydrated, well nourished.. Skin: Skin color, texture, turgor normal, no suspicious rashes or lesions. Head: Normocephalic, no masses, lesions, tenderness or abnormalities. Eyes: Anicteric sclera. Pupils are equally round and reactive to light. Extraocular movements are intact. Ears: External ears normal, canals clear. Normal TMs bilaterally. Oropharynx: Lips, mucosa, and tongue normal, teeth and gums normal, oropharynx with mild redness. Neck: Supple, no adenopathy Lungs: Lungs clear to auscultation. No wheezing, rhonchi, rales.. Heart: RRR without murmur, gallop, or rubs. No ectopy. Neurologic: Gait normal. ASSESSMENT/PLAN: 1. Symptoms of upper respiratory infection (URI) - ICD9: 786.09, ICD10: R09.89 Will go ahead and get testing for covid/flu, as well as strep. Discussed likely viral etiology. Encouraged to treat symptoms -- can continue OTC cold medication, stay hydrated, rest, etc. Aware to notify provider of any new/worsening symptoms. - STREP A MOLECULAR (POC) - COVID WITH FLUA+B, ROUTINE Nasal saline, decongestant, cool mist, rest , fluids, good nutrition Observation 5-7 days for improvment If worse, fever > 101F : call or return See orders and/or patient instructions. Patient ( or Guardian) expressed understanding of instructions on review. Discussed treatment plan and patient voices understanding. Patient's questions answered appropriately. Medications and potential side effects were discussed and patient voices understanding. Return to the office as scheduled or as needed for worsening/no improvement. Светлана Srinivasan APRN.DANICA This note was partially generated using 115 [employer] disks voice recognition system. Note was reviewed for accuracy. There may be minor misspellings or grammar miscues with 115 network disks voice recognition. documented in this encounter [facility] 05-28-2022 Miscellaneous Notes Reason:Right ear pain and sore throat. Outcome: See PCP within 24 hours. Conferenced to [facility] for [facility]. Reason for Disposition Earache (Exceptions: brief ear pain of < 60 minutes duration, earache occurring during air travel Answer Assessment - Initial Assessment Questions 1. LOCATION: Which ear is involved? Right ear pain and sore throat. 2. ONSET: 05-27-22. 3. SEVERITY: Mild to moderate. 3-10 4. URI SYMPTOMS: Cough with green production. 5. FEVER: 99.4 oral. 6. CAUSE: Unsure. 7. OTHER SYMPTOMS: Sore throat, ear ache, fever(99.4 oral this am) and cough. 8. : Denies. Protocols used: [id number] documented in this encounter [facility] 05-28-2022 Miscellaneous Notes Reason for call: sore throat, ear pain Outcome: information given from Care Advice. Patient not sure if she wants to be seen today. Options discussed as far as appointment, EC/UC visit. She was advised to follow up with her PCP. Reason for Disposition Earache also present Answer Assessment - Initial Assessment Questions 1. ONSET: yesterday 2. SEVERITY: 3-4/10 3. STREP EXPOSURE: none known 4. VIRAL SYMPTOMS: slight yesterday 5. FEVER: 99.4 F but feels very hot 6. PUS ON THE TONSILS: Is there pus on the tonsils in the back of your throat? *No Answer* 7. OTHER SYMPTOMS: pressure in both ears *No Answer* 8. : Is there any chance you are ? When was your last menstrual period? *No Answer* Protocols used: Sore Eznnwk-[id number]-PZ documented in this encounter [facility] 04-17-2022 Instructions Светлана Srinivasan APRN.DANICA - 04/17/2022 10:41 AM EST Continue the same medication. Let me know if dosage needs increased. Recheck in 2-3 months. Update me next week with URI symptoms. documented in this encounter [facility] 04-17-2022 History of Presen t illness Narrative This is a 26 year old female who presents today with: Patient presents with: Recheck: 1 month follow up HISTORY OF PRESENT ILLNESS: Herminia Gottlieb is a 26 year old female. Patient presents with: Recheck: 1 month follow up Pt presents today for recheck. Refers that things are going pretty good. Feels like the transition has gone smoothly. Refers that she is almost off the fluoxetine. Currently taking every other day for this week yet. No problems with pristiq. Notices that she has been picking her fingers more. Refers a lot of situational stressors. (Sick grandparents). Reports some sinus symptoms. Slowing improving. Two weeks from onset. Some left head pain. PAST MEDICAL HISTORY: PAST MEDICAL HISTORY Diagnosis Date Appendicitis 01/2019 Cold sores Depression Previous suicide attempt Exercise-induced asthma PMH - PAST MEDICAL HISTORY OF 11/2004 normal color vision Varicella age 2 years PAST SURGICAL HISTORY Procedure Laterality Date EXTRACTION, ERUPTED TOOTH OR EXPOSED ROOT (ELEVATION AND/OR FORCEPS REMOVAL) LAPAROSCOPIC APPENDECTOMY 01/2019 ALLERGIES Seasonal Allergies MEDICATIONS Current Outpatient Medications Medication Sig FLUoxetine (PROZAC) 10 mg capsule One pill by mouth daily X 1 week; then every other day until gone. desvenlafaxine ER (PRISTIQ) 50 mg 24 hr tablet Take 1 tablet by mouth once daily. Decrease prozac to 20 mg daily. Increase pristiq to 50 mg daily. LORATADINE ORAL Take by mouth. valACYclovir (VALTREX) 1 gram Take 1 tablet by mouth twice daily. For cold sore outbreak fluticasone (FLONASE) 50 mcg/actuation nasal spray Use 2 Sprays in each nostril once daily. Rinse mouth after use. (Patient taking differently: Use 2 Sprays in each nostril once daily. Rinse mouth after use.... uses as needed) fghvaupa-cxsx-JB-calcium-mins 18 mg iron-400 mcg-500 mg Ca tab multivitamin (OPTIVITE P.M.T. ORAL) albuterol HFA (VENTOLIN HFA) 90 mcg/actuation inhaler Inhale 2 Puffs as instructed every 4 hours as needed for Wheezing/Shortness of Breath. No current facility-administered medications for this visit. FAMILY HISTORY Problem Relation Age of Onset other (mental health) Mother Stroke Father other (Epilepsy) Father Anxiety disorder Sister Depression Sister Asthma Sister Prematurity Sister other (one kidney) Sister Anxiety disorder Brother Stroke Maternal Grandfather Alzheimer's Disease Maternal Grandfather Heart Paternal Grandmother Stroke Paternal Grandmother Social History Tobacco Use Smoking status: Never Smokeless tobacco: Never Vaping Use Vaping Use: Never used Substance Use Topics Alcohol use: Yes Comment: rare Drug use: Never EXAM: BP 138/82 Pulse 93 Resp 18 LMP 01/31/2022 SpO2 98% PHYSICAL EXAM: General Appearance: Well appearing, alert, in no acute distress, well-hydrated, well nourished.. Skin: Skin color, texture, turgor normal, no suspicious rashes or lesions. Head: Normocephalic, no masses, lesions, tenderness or abnormalities. Eyes: Anicteric sclera. Pupils are equally round and reactive to light. Extraocular movements are intact. Ears: Normal TMs bilaterally. Lungs: Lungs clear to auscultation. No wheezing, rhonchi, rales. Heart: RRR without murmur, gallop, or rubs. No ectopy. Neurologic: Gait normal. ASSESSMENT/PLAN: 1. Anxiety and depression - ICD9: 300.00, 311, ICD10: F41.9, F32.A (primary diagnosis) Doing well with transition. Some situational stressors, but feels doing okay. She has less than a week of elrot-qnniv-twt fluoxetine left. She will monitor for worsening symptoms and notify provider if occurs. - DESVENLAFAXINE SUCCINATE ER 50 MG TABLET,EXTENDED RELEASE 24 HR 2. Recurrent cold sores - ICD9: 054.9, ICD10: B00.1 Refill: - VALACYCLOVIR 1 GRAM TABLET 3. Symptoms of upper respiratory infection (URI) - ICD9: 786.09, ICD10: R09.89 Symptoms have been improving. Will go ahead and continue to monitor for a few more days. If no improvement/worsening next week, she will notify provider and consider antibiotic therapy. Discussed treatment plan and patient voices understanding. Patient's questions answered appropriately. Medications and potential side effects were discussed and patient voices understanding. Return to the office as scheduled or as needed for worsening/no improvement. Flu shot offered and declined. Светлана Srinivasan APRN.CNP documented in this encounter [facility] 03-22-2022 Miscellaneous Notes Script sent. Светлана Srinivasan APRN.CNP Rx pended Laurie Myrick Ma Patient states she was informed to call and update medication. She has 2 pills of Fluoxetine left. 20 mg. documented in this encounter [facility] 03-20-2022 Instructions Светлана Srinivasan APRN.CNP - 03/20/2022 11:20 AM EST Continue to titrate off the prozac. (Let me know if you have enough 10 mg capsules). Recheck in 1 month. documented in this encounter [facility] 03-20-2022 History of Presen t illness Narrative This is a 26 year old female who presents today with: Patient presents with: Recheck: 1 month follow up HISTORY OF PRESENT ILLNESS: Herminia Gottlieb is a 26 year old female. Patient presents with: Recheck: 1 month follow up Pt presents today for one month recheck. She reports that she is doing well. We are currently cross titrating prozac and pristiq. Happy with current medication. PAST MEDICAL HISTORY: PAST MEDICAL HISTORY Diagnosis Date Appendicitis 01/2019 Cold sores Depression Previous suicide attempt Exercise-induced asthma PMH - PAST MEDICAL HISTORY OF 11/2004 normal color vision Varicella age 2 years PAST SURGICAL HISTORY Procedure Laterality Date EXTRACTION, ERUPTED TOOTH OR EXPOSED ROOT (ELEVATION AND/OR FORCEPS REMOVAL) LAPAROSCOPIC APPENDECTOMY 01/2019 ALLERGIES Seasonal Allergies MEDICATIONS Current Outpatient Medications Medication Sig FLUoxetine (PROZAC) 10 mg capsule One pill by mouth daily X 1 week; then every other day until gone. desvenlafaxine ER (PRISTIQ) 50 mg 24 hr tablet Take 1 tablet by mouth once daily. Decrease prozac to 20 mg daily. Increase pristiq to 50 mg daily. LORATADINE ORAL Take by mouth. valACYclovir (VALTREX) 1 gram Take 1 tablet by mouth twice daily. For cold sore outbreak fluticasone (FLONASE) 50 mcg/actuation nasal spray Use 2 Sprays in each nostril once daily. Rinse mouth after use. (Patient taking differently: Use 2 Sprays in each nostril once daily. Rinse mouth after use.... uses as needed) wwudtjeb-nfvm-LK-calcium-mins 18 mg iron-400 mcg-500 mg Ca tab multivitamin (OPTIVITE P.M.T. ORAL) albuterol HFA (VENTOLIN HFA) 90 mcg/actuation inhaler Inhale 2 Puffs as instructed every 4 hours as needed for Wheezing/Shortness of Breath. No current facility-administered medications for this visit. FAMILY HISTORY Problem Relation Age of Onset other (mental health) Mother Stroke Father other (Epilepsy) Father Anxiety disorder Sister Depression Sister Asthma Sister Prematurity Sister other (one kidney) Sister Anxiety disorder Brother Stroke Maternal Grandfather Alzheimer's Disease Maternal Grandfather Heart Paternal Grandmother Stroke Paternal Grandmother Social History Tobacco Use Smoking status: Never Smokeless tobacco: Never Vaping Use Vaping Use: Never used Substance Use Topics Alcohol use: Yes Comment: rare Drug use: Never EXAM: BP 110/78 Pulse 70 Resp 18 LMP 01/31/2022 SpO2 98% PHYSICAL EXAM: General Appearance: Well appearing, alert, in no acute distress, well-hydrated, well nourished.. Skin: Skin color, texture, turgor normal, no suspicious rashes or lesions. Head: Normocephalic, no masses, lesions, tenderness or abnormalities. Eyes: Anicteric sclera. Extraocular movements are intact. . Neurologic: Gait normal. ASSESSMENT/PLAN: 1. Recurrent major depressive disorder, in remission (HCC) - ICD9: 296.35, ICD10: F33.40 Continue w/ cross tapering of the prozac and pristiq. Plan to recheck in 1 month -- sooner if needed. Discussed treatment plan and patient voices understanding. Patient's questions answered appropriately. Medications and potential side effects were discussed and patient voices understanding. Return to the office as scheduled or as needed for worsening/no improvement. Светлана Srinivasan APRN.PATTERN MARKING SUPERVISOR documented in this encounter [facility] 03-06-2022 Miscellaneous Notes Ok noted. If following up next week, will just stay pat on current regimen. Patient returned call and states she thinks she is doing well on the Pristiq. States possibly a little more anxiety but depression symptoms are going down. Also states period cycle affects mood at times. Also would like to update provider that she has been seeing a counselor and will begin biweekly visits with them next week. Patient plans to come to next scheduled appt. -does not feel she needs seen sooner at this time. Please call patient if provider has further instructions. Thank you. Left message for pt to return call to office. Trey Bright LPN Can we please call and check how patient is doing on the pristiq? I would like to go ahead and further decrease the prozac and stop this. Please keep the upcoming appointment so we can re-eval at that time. Sooner, if needed. Светлана Srinivasan APRN.DANICA documented in this encounter [facility] 02-22-2022 Instructions Светлана Srinivasan APRN.CNP - 02/22/2022 1:35 PM EDT Decrease the prozac to 20 mg. Increase the pristiq to 50 mg. Recheck in a month. documented in this encounter [facility] 02-22-2022 History of Presen t illness Narrative This is a 26 year old female who presents today with: Patient presents with: Recheck: 4 week follow up HISTORY OF PRESENT ILLNESS: Herminia Pinon Bull is a 26 year old female. Patient presents with: Recheck: 4 week follow up Pt presents today for recheck. Was seen last month for depression. Pristiq was added to her regimen. She started to go to 1:1 counseling, in addition to counseling w/ spouse. She has noticed an improvement, but initially noticed more of an impact and not as much now. PAST MEDICAL HISTORY: PAST MEDICAL HISTORY Diagnosis Date Appendicitis 01/2019 Cold sores Depression Previous suicide attempt Exercise-induced asthma PMH - PAST MEDICAL HISTORY OF 11/2004 normal color vision Varicella age 2 years PAST SURGICAL HISTORY Procedure Laterality Date EXTRACTION, ERUPTED TOOTH OR EXPOSED ROOT (ELEVATION AND/OR FORCEPS REMOVAL) LAPAROSCOPIC APPENDECTOMY 01/2019 ALLERGIES Seasonal Allergies MEDICATIONS Current Outpatient Medications Medication Sig desvenlafaxine ER (PRISTIQ) 25 mg 24 hr tablet Take 1 tablet by mouth once daily. FLUoxetine (PROZAC) 40 mg capsule Take 1 capsule by mouth once daily. LORATADINE ORAL Take by mouth. valACYclovir (VALTREX) 1 gram Take 1 tablet by mouth twice daily. For cold sore outbreak fluticasone (FLONASE) 50 mcg/actuation nasal spray Use 2 Sprays in each nostril once daily. Rinse mouth after use. (Patient taking differently: Use 2 Sprays in each nostril once daily. Rinse mouth after use.... uses as needed) klyzusdm-hhen-EH-calcium-mins 18 mg iron-400 mcg-500 mg Ca tab multivitamin (OPTIVITE P.M.T. ORAL) albuterol HFA (VENTOLIN HFA) 90 mcg/actuation inhaler Inhale 2 Puffs as instructed every 4 hours as needed for Wheezing/Shortness of Breath. No current facility-administered medications for this visit. FAMILY HISTORY Problem Relation Age of Onset other (mental health) Mother Stroke Father other (Epilepsy) Father Anxiety disorder Sister Depression Sister Asthma Sister Prematurity Sister other (one kidney) Sister Anxiety disorder Brother Stroke Maternal Grandfather Alzheimer's Disease Maternal Grandfather Heart Paternal Grandmother Stroke Paternal Grandmother Social History Tobacco Use Smoking status: Never Smokeless tobacco: Never Vaping Use Vaping Use: Never used Substance Use Topics Alcohol use: Yes Comment: rare Drug use: Never EXAM: BP 110/70 Pulse 86 Resp 18 Wt 94.3 kg (208 lb) LMP 01/31/2022 SpO2 98% BMI 35.70 kg/m PHYSICAL EXAM: General Appearance: Well appearing, alert, in no acute distress, well-hydrated, well nourished.. Skin: Skin color, texture, turgor normal, no suspicious rashes or lesions. Head: Normocephalic, no masses, lesions, tenderness or abnormalities. Eyes: Anicteric sclera. Extraocular movements are intact. . Lungs: Lungs clear to auscultation. No wheezing, rhonchi, rales.. Heart: RRR without murmur, gallop, or rubs. No ectopy. Neurologic: Gait normal. ASSESSMENT/PLAN: 1. Anxiety and depression - ICD9: 300.00, 311, ICD10: F41.9, F32.A Will go ahead and increase the pristiq and decrease the prozac to start cross tapering. Continue counseling. - DESVENLAFAXINE SUCCINATE ER 50 MG TABLET,EXTENDED RELEASE 24 HR - FLUOXETINE 20 MG CAPSULE Discussed treatment plan and patient voices understanding. Patient's questions answered appropriately. Medications and potential side effects were discussed and patient voices understanding. Return to the office as scheduled or as needed for worsening/no improvement. Светлана Srinivasan APRN.CNP The patient indicates understanding of these issues and agrees with the plan. documented in this encounter [facility] 01-27-2022 Miscellaneous Notes See myc message Khurram Oro PA-C documented in this encounter [facility] 01-25-2022 Instructions Veronica Oro PA-C - 01/25/2022 3:40 PM EDT Provide services on a sliding fee scale for [facility]. [address] [address] *Counseling [id number] [place], [place] [address] *Counseling, Psychiatry and Case Management [address] [address] *Counseling [address] [address] *Counseling [address] [place] [address] *Counseling [address] [place], [place] [phone] *Counseling [address] [place], [place] [id number] *Counseling/mental health and substance use treatment [facility] [address] [place], [place] [address] [address] [facility] [address] , [address] [place] [address] *Addiction services, services for victims of domestic violence and sexual assault, housing services [facility] -safe, alcohol and drug free environment [facility] [phone] *free grief services, individual and group *If you ever experience a mental health crisis please contact [phone], 911 or go to the nearest ER. [phone] if emergency for Khurram CORTEZ Please verify with insurance provider for coverage. Desvenlafaxine: Patient drug information Access [employer] Online for additional drug information, tools, and databases. Copyright 7733-8269 [employer]. All rights reserved. (For additional information see Desvenlafaxine: Drug information) You must carefully read the Consumer Information Use and Disclaimer below in order to understand and correctly use this information. Brand Names: US Khedezla [DSC]; Pristiq Brand Names: Karolina APO-Desvenlafaxine; Pristiq Warning Drugs like this one have raised the chance of suicidal thoughts or actions in children and young adults. The risk may be greater in people who have had these thoughts or actions in the past. All people who take this drug need to be watched closely. Call the doctor right away if signs like low mood (depression), nervousness, restlessness, grouchiness, panic attacks, or changes in mood or actions are new or worse. Call the doctor right away if any thoughts or actions of suicide occur. This drug is not approved for use in children. Talk with the doctor. What is this drug used for? It is used to treat low mood (depression). It may be given to you for other reasons. Talk with the doctor. What do I need to tell my doctor BEFORE I take this drug? If you are allergic to this drug; any part of this drug; or any other drugs, foods, or substances. Tell your doctor about the allergy and what signs you had. If you have narrow-angle glaucoma. If you are taking any of these drugs: Linezolid or methylene blue. If you have taken certain drugs for depression or Parkinson's disease in the last 14 days. This includes isocarboxazid, phenelzine, tranylcypromine, selegiline, or rasagiline. Very high blood pressure may happen. If you are taking another drug that has the same drug in it. If you are using another drug like this one. If you are not sure, ask your doctor or pharmacist. This is not a list of all drugs or health problems that interact with this drug. Tell your doctor and pharmacist about all of your drugs (prescription or OTC, natural products, vitamins) and health problems. You must check to make sure that it is safe for you to take this drug with all of your drugs and health problems. Do not start, stop, or change the dose of any drug without checking with your doctor. What are some things I need to know or do while I take this drug? Tell all of your health care providers that you take this drug. This includes your doctors, nurses, pharmacists, and dentists. It may take several months to see full effect. Avoid driving and doing other tasks or actions that call for you to be alert until you see how this drug affects you. To lower the chance of feeling dizzy or passing out, rise slowly if you have been sitting or lying down. Be careful going up and down stairs. Do not stop taking this drug all of a sudden without calling your doctor. You may have a greater risk of side effects. If you need to stop this drug, you will want to slowly stop it as ordered by your doctor. High blood pressure has happened with this drug. Have your blood pressure checked as you have been told by your doctor. Avoid drinking alcohol while taking this drug. Talk with your doctor before you use marijuana, other forms of cannabis, or prescription or OTC drugs that may slow your actions. This drug may raise the chance of bleeding. Sometimes, bleeding can be life-threatening. Talk with the doctor. Some people may have a higher chance of eye problems with this drug. Your doctor may want you to have an eye exam to see if you have a higher chance of these eye problems. Call your doctor right away if you have eye pain, change in eyesight, or swelling or redness in or around the eye. This drug can cause low sodium levels. Very low sodium levels can be life-threatening, leading to seizures, passing out, trouble breathing, or . This drug may affect certain lab tests. Tell all of your health care providers and lab workers that you take this drug. If you are 65 or older, use this drug with care. You could have more side effects. Tell your doctor if you are , plan on getting , or are breast-feeding. You will need to talk about the benefits and risks to you and the baby. Taking this drug in the third trimester of may lead to some health problems in the . Talk with the doctor. What are some side effects that I need to call my doctor about right away? WARNING/CAUTION: Even though it may be rare, some people may have very bad and sometimes deadly side effects when taking a drug. Tell your doctor or get medical help right away if you have any of the following signs or symptoms that may be related to a very bad side effect: Signs of an allergic reaction, like rash; hives; itching; red, swollen, blistered, or peeling skin with or without fever; wheezing; tightness in the chest or throat; trouble breathing, swallowing, or talking; unusual hoarseness; or swelling of the mouth, face, lips, tongue, or throat. Signs of low sodium levels like headache, trouble focusing, memory problems, feeling confused, weakness, seizures, or change in balance. Signs of bleeding like throwing up or coughing up blood; vomit that looks like coffee grounds; blood in the urine; black, red, or tarry stools; bleeding from the gums; abnormal vaginal bleeding; bruises without a cause or that get bigger; or bleeding you cannot stop. Signs of high blood pressure like very bad headache or dizziness, passing out, or change in eyesight. Signs of lung or breathing problems like shortness of breath or other trouble breathing, cough, or fever. Chest pain or pressure. Seizures. Feeling very tired or weak. Hallucinations (seeing or hearing things that are not there). Some men have had sexual problems when taking this drug. These include lowered interest in sex and not able to get an erection. Call your doctor right away if you have sexual problems when taking this drug. A severe and sometimes deadly problem called serotonin syndrome may happen. The risk may be greater if you also take certain other drugs. Call your doctor right away if you have agitation; change in balance; confusion; hallucinations; fever; fast or abnormal heartbeat; flushing; muscle twitching or stiffness; seizures; shivering or shaking; sweating a lot; severe diarrhea, upset stomach, or throwing up; or very bad headache. What are some other side effects of this drug? All drugs may cause side effects. However, many people have no side effects or only have minor side effects. Call your doctor or get medical help if any of these side effects or any other side effects bother you or do not go away: Feeling dizzy, sleepy, tired, or weak. Upset stomach or throwing up. Constipation. Dry mouth. Trouble sleeping. Not hungry. Sweating. Shakiness. You may see something that looks like the tablet in your stool. This is normal and not a cause for concern. If you have questions, talk with your doctor. These are not all of the side effects that may occur. If you have questions about side effects, call your doctor. Call your doctor for medical advice about side effects. You may report side effects to your national health agency. How is this drug best taken? Use this drug as ordered by your doctor. Read all information given to you. Follow all instructions closely. Take with or without food. Swallow whole with fluid. Do not chew, break, crush, or dissolve. Take this drug at the same time of day. Keep taking this drug as you have been told by your doctor or other health care provider, even if you feel well. What do I do if I miss a dose? Take a missed dose as soon as you think about it. If it is close to the time for your next dose, skip the missed dose and go back to your normal time. Do not take 2 doses at the same time or extra doses. How do I store and/or throw out this drug? Store at room temperature. Store in a dry place. Do not store in a bathroom. Keep all drugs in a safe place. Keep all drugs out of the reach of children and pets. Throw away unused or drugs. Do not flush down a toilet or pour down a drain unless you are told to do so. Check with your pharmacist if you have questions about the best way to throw out drugs. There may be drug take-back programs in your area. General drug facts If your symptoms or health problems do not get better or if they become worse, call your doctor. Do not share your drugs with others and do not take anyone else's drugs. Some drugs may have another patient information leaflet. If you have any questions about this drug, please talk with your doctor, nurse, pharmacist, or other health care provider. If you think there has been an overdose, call your poison control center or get medical care right away. Be ready to tell or show what was taken, how much, and when it happened. Last Reviewed [id number] Consumer Information Use and Disclaimer This information should not be used to decide whether or not to take this medicine or any other medicine. Only the healthcare provider has the knowledge and training to decide which medicines are right for a specific patient. This information does not endorse any medicine as safe, effective, or approved for treating any patient or health condition. This is only a brief summary of general information about this medicine. It does NOT include all information about the possible uses, directions, warnings, precautions, interactions, adverse effects, or risks that may apply to this medicine. This information is not specific medical advice and does not replace information you receive from the healthcare provider. You must talk with the healthcare provider for complete information about the risks and benefits of using this medicine. The use of this information is governed by the [employer] End User License Agreement, available at https://www.[employer]/en /solutions/P[place]atta/about/kwaku. 2020 [employer]. and its affiliates and/or licensors. All rights reserved. Use of [employer] is subject to the Subscription and License Agreement. Topic 32292 Version 147.0 documented in this encounter [facility] 01-25-2022 History of Presen t illness Narrative 26 year old female new to me with c/o here for depression issues. Feels not herself lately, less motivated to do things. Dealing with depression since age 12. Goes in waves. More irritable, overwhelmed, not enjoying things normally would. Feeling worse. Has passive thought of suicide, lately more often and more real. Thoughts of jumping of a bridge in front of a semi truck. What keeps her from action is that she would hurt so many other people and against margo. is my rock. 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 Works as T[employer]. Works in [employer]. In counseling with r/t family issues. She is planning to go to counseling. [facility]. Past medications: Prozac has helped Bupropion made her shaky. PHQ-9 09/01/2020 07/26/2021 01/25/2022 Score 6 4 21 SUKHWINDER - 7 SCORES 01/25/2022 SUKHWINDER-7 Score 11 HISTORIES FAMILY HISTORY Problem Relation Age of Onset other (mental health) Mother Stroke Father other (Epilepsy) Father Anxiety disorder Sister Depression Sister Asthma Sister Prematurity Sister other (one kidney) Sister Anxiety disorder Brother Stroke Maternal Grandfather Alzheimer's Disease Maternal Grandfather Heart Paternal Grandmother Stroke Paternal Grandmother PAST MEDICAL HISTORY Diagnosis Date Appendicitis 01/2019 Cold sores Depression Previous suicide attempt Exercise-induced asthma PMH - PAST MEDICAL HISTORY OF 11/2004 normal color vision Varicella age 2 years PAST SURGICAL HISTORY Procedure Laterality Date EXTRACTION, ERUPTED TOOTH OR EXPOSED ROOT (ELEVATION AND/OR FORCEPS REMOVAL) LAPAROSCOPIC APPENDECTOMY 01/2019 Social History Tobacco Use Smoking status: Never Smokeless tobacco: Never Vaping Use Vaping Use: Never used Substance Use Topics Alcohol use: Yes Comment: rare Drug use: Never ACTIVE PROBLEM LIST Recurrent Major Depressive Disorder, in Remission (Hcc) Herpes Simplex Episodic Lightheadedness Anxiety and Depression Current Outpatient Medications Medication Sig Dispense Refill FLUoxetine (PROZAC) 40 mg capsule Take 1 capsule by mouth once daily. 90 capsule 1 LORATADINE ORAL Take by mouth. fluticasone (FLONASE) 50 mcg/actuation nasal spray Use 2 Sprays in each nostril once daily. Rinse mouth after use. (Patient taking differently: Use 2 Sprays in each nostril once daily. Rinse mouth after use.... uses as needed) 1 Bottle 1 rbhuopck-zgco-FT-calcium-mins 18 mg iron-400 mcg-500 mg Ca tab multivitamin (OPTIVITE P.M.T. ORAL) albuterol HFA (VENTOLIN HFA) 90 mcg/actuation inhaler Inhale 2 Puffs as instructed every 4 hours as needed for Wheezing/Shortness of Breath. 1 Inhaler 0 valACYclovir (VALTREX) 1 gram Take 1 tablet by mouth twice daily. For cold sore outbreak 6 tablet 5 No current facility-administered medications for this visit. COVID-19 VACCINE(1) Never done HPV VACCINE(1 - 2-dose series) Never done INFLUENZA(1) due on 01/03/2022 EXAM: BP 108/60 Pulse 89 Resp 16 Wt 93.4 kg (206 lb) LMP 10/05/2021 SpO2 98% BMI 35.36 kg/m Pleasant overweight but healthy appearing and pleasant young woman in no acute distress. Alert and oriented all spheres. Appearance: well dressed well groomed, cooperative and pleasant Behavior: good eye contact Speech: fluent and coherent Mood: dysthymic Affect: appropriate and congruent Perceptions: none Thought process: goal directed Thought Content: normal Intelligence level: normal Insight: good Judgment: good Speech normal. No deficits to learning or comprehension. Skin warm, dry, pink to lips and nailbeds. Normal turgor. Respirations regular and unlabored. Extrem: no clubbing or cyanosis. Edema: none. Extremities are warm and pink with prompt capillary refill. Component Latest Ref Rng & Units 07/26/2021 09/26/2021 01/16/2022 WBC 3.70 - 11.00 k/uL 4.55 RBC 3.90 - 5.20 m/uL 5.14 Hemoglobin 11.5 - 15.5 g/dL 13.8 Hematocrit 36.0 - 46.0 % 43.6 MCV 80.0 - 100.0 fL 84.8 MCH 26.0 - 34.0 pg 26.8 MCHC 30.5 - 36.0 g/dL 31.7 RDW-CV 11.5 - 15.0 % 13.1 Platelet Count 150 - 400 k/uL 270 MPV 9.0 - 12.7 fL 10.1 Neut% % 52.5 Abs Neut (ANC) 1.45 - 7.50 k/uL 2.39 Lymph% % 34.1 Abs Lymph 1.00 - 4.00 k/uL 1.55 [place]% % 10.8 Abs [place] <0.87 k/uL 0.49 Eosin% % 1.5 Abs Eosin <0.46 k/uL 0.07 Baso% % 0.4 Abs Baso <0.11 k/uL <0.03 Immature Gran % % 0.7 IMMATURE GRANS (ABS) <0.10 k/uL 0.03 NRBC /100 WBC 0.0 Absolute nRBC <0.01 k/uL <0.01 DTYPE Auto Glucose 74 - 99 mg/dL 86 75 BUN 7 - 21 mg/dL 17 10 Creatinine 0.58 - 0.96 mg/dL 0.81 0.76 Sodium 136 - 144 mmol/L 140 141 Potassium 3.7 - 5.1 mmol/L 4.2 4.2 Chloride 97 - 105 mmol/L 104 104 CO2 22 - 30 mmol/L 26 24 Anion Gap 9 - 18 mmol/L 10 13 Calcium 8.5 - 10.2 mg/dL 10.2 10.4 (H) eGFR >=60 mL/min/1.73m 103 111 TSH 0.270 - 4.200 mIU/L 1.810 Vitamin D 25 Hydroxy 31.0 - 80.0 ng/mL 32.3 Vitamin B12 232-1,245 pg/mL 654 Magnesium 1.7 - 2.3 mg/dL 2.0 TORIBIO by EIA, Qual Negative Negative WSR 0 - 20 mm/hr 2 CRP <0.9 mg/dL <0.3 ASSESSMENT/PLAN: 1. Recurrent major depressive disorder, in remission (HCC) - ICD9: 296.35, ICD10: F33.40 Discussed options for management/ medications. Decided on addition desvenlafaxine Discussed warnings, administration, common side effects, need to wean on discontinuation, combination with fluoxetine. Suicide prevention plan reviewed and repeated on teach back with patient. F/u 4 weeks. - DESVENLAFAXINE SUCCINATE ER 25 MG TABLET,EXTENDED RELEASE 24 HR Veronica Oro PA-C documented in this encounter [facility] 01-25-2022 Miscellaneous Notes Protocol recommends see provider in 24 hours. Pt has an appointment with Ethan STEEL at 320 pm today. Care plan reviewed with patient. Patient voices understanding. Advised patient that if symptoms get worse to be evaluated in Urgent Care or ER. Reason for Disposition Depression is main symptom and is not threatening suicide [1] Depression AND [2] worsening (e.g.,sleeping poorly, less able to do activities of daily living) Answer Assessment - Initial Assessment Questions 1. MAIN CONCERN: Thoughts of suicide had become more frequent and worse than before. 2. RISK OF HARM - SUICIDAL IDEATION: Pt reports thoughts of killing herself. Pt reports she wished she were or wished she could go to sleep and not wake up.Pt has had thoughts about jumping from a high place. Pt denies access to plan, and states she is not going to act on it. 3. RISK OF HARM - SUICIDE ATTEMPT: Pt denies trying to harm herself recently. 4. RISK OF HARM - SUICIDAL BEHAVIOR: States she had a suicide attempt years ago and she wrote a note, but at this point no. 5. EVENTS AND STRESSORS: Before messaged us called counselor and counseling center. Trying to get one-on -one counseling. Multiple stressors together. 6. FUNCTIONAL IMPAIRMENT: Pt reports things have been going worse overall, she had had more difficulty than usual doing your normal daily activities. Pt works 3 days at 12 hours, and she worked 2 and wasn't able to get herself out of bed to work the last day. Motivation is really hard. When she is at work she doesn't care as much. Pts keeps up on showering, trying to keep up on brushing teeth, has fallen behind on hair. Pt reports she is isolating herself. States yesterday she sat and didn't do yesterday, was supposed to meet friends for a walk and didn't feel up to it. 7. SUPPORT: She lives with her Meek, but he is at work. States she has her dog with her for emotional support. She states she has family and friends she can talk to, but she's not real proud of this so she doesn't like to talk about it. 8. THERAPIST: Pt reports she has counselor Dany Cheung at [facility], she left him a message this morning. She has been doing joint counseling for family issues. 9. ALCOHOL USE OR SUBSTANCE USE (DRUG USE): Pt denies. 10. OTHER: Pt denies. Little headache and nausea. 11. or : States there is always the possibility she could be . Last menstrual period was Dec 30-Jan 2. Answer Assessment - Initial Assessment Questions 1. CONCERN: Increasing in frequency of suicidal thoughts and they are worsening. 2. DEPRESSION SYMPTOM SCREENING: How are you feeling overall? Pt reports decreased energy, increased sleeping, difficulty concentrating, feelings of sadness, hopelessness, or worthlessness. 3. RISK OF HARM - SUICIDAL IDEATION: Pt has thoughts of killing herself. States she has thought of jumping from a high place, but states she would never do this. 4. RISK OF HARM - HOMICIDAL IDEATION: Denies 5. FUNCTIONAL IMPAIRMENT: How have things been going worse for her she has had more difficulty than usual doing your normal daily activities. States she has isolated her self and has no energy or motivation to do things. 6. SUPPORT: Lives with her but he is at work, has dog for emotional support. States she has family and friends she can talk to but she is not proud about this and doesn't like to talk about it. 7. THERAPIST: Counselor Dany Cheung with [facility]. 8. STRESSORS: No recent stressor she can pinpoint, but multiple stressors built up. 9. ALCOHOL USE OR SUBSTANCE USE (DRUG USE): Denies 10. OTHER: Slight headache and nausea. 11. : Could be a chance she is . Last menstrual period Dec 30- Jan 2. Protocols used: Suicide [id number], Veyeedagdk-VDWDC-MW documented in this encounter [facility] 01-25-2022 Miscellaneous Notes Opening triage note. documented in this encounter [facility] 01-24-2022 Miscellaneous Notes PATIENT NOTIFIED OF INFORMATION TC to pt, left message to return call to office. Trey Bright LPN Can please let patient know that I received her lab results. Everything looks normal/stable. Her calcium was still just mildly elevated, but less than previous. Lets have her hold her calcium for a month and then recheck the labs again. The order is in. Светлана Srinivasan APRN.DANICA documented in this encounter [facility] 01-16-2022 Instructions Светлана Srinivasan APRN.DANICA - 01/16/2022 10:22 AM EDT Get labs/urine Schedule ultrasound. Same medication. documented in this encounter [facility] 01-16-2022 History of Presen t illness Narrative This is a 26 year old female who presents today with: Patient presents with: Recheck: 6 week follow up HISTORY OF PRESENT ILLNESS: Herminia Gottlieb is a 26 year old female. Patient presents with: Recheck: 6 week follow up Pt presents today for 6 week follow-up. She did resume the higher dose of prozac. Doing better on the prozac 40 mg. She does feel better with the knowledge that she tried a lower dose and that she realizes and is comfortable on the higher dose. She reports episodes of her feet becoming very cold. More so in the toes. She reports that there are no changes of color. She reports that occasionally has numbness and tingling associated with the coldness. Warmth helps improve the symptoms. She rarely will notice in the fingers, as well. Had some concerns of diabetes. Has family hx. Concerned neuropathy changes. No polyuria/polydipsia. PAST MEDICAL HISTORY: PAST MEDICAL HISTORY Diagnosis Date Appendicitis 01/2019 Cold sores Depression Previous suicide attempt Exercise-induced asthma PMH - PAST MEDICAL HISTORY OF 11/2004 normal color vision Varicella age 2 years PAST SURGICAL HISTORY Procedure Laterality Date EXTRACTION, ERUPTED TOOTH OR EXPOSED ROOT (ELEVATION AND/OR FORCEPS REMOVAL) LAPAROSCOPIC APPENDECTOMY 01/2019 ALLERGIES Seasonal Allergies MEDICATIONS Current Outpatient Medications Medication Sig FLUoxetine (PROZAC) 40 mg capsule Take 1 capsule by mouth once daily. LORATADINE ORAL Take by mouth. valACYclovir (VALTREX) 1 gram Take 1 tablet by mouth twice daily. For cold sore outbreak fluticasone (FLONASE) 50 mcg/actuation nasal spray Use 2 Sprays in each nostril once daily. Rinse mouth after use. (Patient taking differently: Use 2 Sprays in each nostril once daily. Rinse mouth after use.... uses as needed ) multivitamin (OPTIVITE P.M.T. ORAL) albuterol HFA (VENTOLIN HFA) 90 mcg/actuation inhaler Inhale 2 Puffs as instructed every 4 hours as needed for Wheezing/Shortness of Breath. dropputb-javr-NW-calcium-mins (ONE-A-DAY WOMENS FORMULA) 18 mg iron-400 mcg-500 mg Ca tab No current facility-administered medications for this visit. FAMILY HISTORY Problem Relation Age of Onset other (mental health) Mother Stroke Father other (Epilepsy) Father Anxiety disorder Sister Depression Sister Asthma Sister Prematurity Sister other (one kidney) Sister Anxiety disorder Brother Stroke Maternal Grandfather Alzheimer's Disease Maternal Grandfather Heart Paternal Grandmother Stroke Paternal Grandmother Social History Tobacco Use Smoking status: Never Smokeless tobacco: Never Vaping Use Vaping Use: Never used Substance Use Topics Alcohol use: Yes Comment: rare Drug use: Never EXAM: BP 110/80 Pulse 75 Resp 18 Wt 96.2 kg (212 lb) LMP 10/05/2021 SpO2 98% BMI 36.39 kg/m PHYSICAL EXAM: General Appearance: Well appearing, alert, in no acute distress, well-hydrated, well nourished.. Skin: Skin color, texture, turgor normal, no suspicious rashes or lesions. Head: Normocephalic, no masses, lesions, tenderness or abnormalities. Eyes: Anicteric sclera. Extraocular movements are intact. . Lungs: Lungs clear to auscultation. No wheezing, rhonchi, rales.. Heart: RRR without murmur, gallop, or rubs. No ectopy. Extremities: No deformities, edema, skin discoloration, clubbing or cyanosis. Good capillary refill. Toes are cool. +2 dp/pt pulses. +2 radial pulses. Neurologic: Gait normal. ASSESSMENT/PLAN: 1. Recurrent major depressive disorder, in remission (HCC) - ICD9: 296.35, ICD10: F33.40 (primary diagnosis) Doing better on the higher dose of the fluoxetine. Happy with current regimen. Plan to recheck in approximately 2 months. - FLUOXETINE 40 MG CAPSULE 2. Numbness and tingling - ICD9: 782.0, ICD10: R20.0, R20.2 Question if she may be developing some Raynaud's symptoms. She denies any color changes of her fingers or toes that she has noticed. Will get work-up. - PVR ANK PRESS [facility] - BASIC METABOLIC PNL - CBC + DIFF - MAGNESIUM BLD - URINALYSIS, WITH MICROSCOPIC - URINE CULTURE - TORIBIO BLOOD - SED RATE WESTERGREN - C-REACTIVE PROTEIN (CRP) 3. Cold extremities - ICD9: 780.99, ICD10: R20.9 As above. - PVR ANK PRESS [facility] Discussed treatment plan and patient voices understanding. Patient's questions answered appropriately. Medications and potential side effects were discussed and patient voices understanding. Return to the office as scheduled or as needed for worsening/no improvement. Светлана Srinivasan APRN.DANICA documented in this encounter [facility] 10-31-2021 Instructions Светлана Srinivasan APRN.CNP - 10/31/2021 2:57 PM EDT 1. Continue the prozac. Take one capsule daily on days 1-14. Take two capsules on day 14-28. 2. Recheck in 3 months. Send me a mychart w/ updates. documented in this encounter [facility] 10-31-2021 History of Presen t illness Narrative This is a 26 year old female who presents today with: Patient presents with: Recheck: 6 week follow up HISTORY OF PRESENT ILLNESS: Herminia Gottlieb is a 26 year old female. Patient presents with: Recheck: 6 week follow up Pt presents today for recheck. At her last visit, we tried to decrease her prozac to 10 mg. Thinks that she has been a little more on edge. She does admit that symptoms can be more cyclic in nature and that she has been told in the past she has PMDD. Cycles reviewed and typically 28-29 days. She previously has participated in counseling d/t some family issues with parents and how she and spouse were treated when they worked in the [employer] business. She is considering doing individual counseling just for her. PAST MEDICAL HISTORY: PAST MEDICAL HISTORY Diagnosis Date Appendicitis 01/2019 Cold sores Depression Previous suicide attempt Exercise-induced asthma PMH - PAST MEDICAL HISTORY OF 11/2004 normal color vision Varicella age 2 years PAST SURGICAL HISTORY Procedure Laterality Date EXTRACTION, ERUPTED TOOTH OR EXPOSED ROOT (ELEVATION AND/OR FORCEPS REMOVAL) LAPAROSCOPIC APPENDECTOMY 01/2019 ALLERGIES Seasonal Allergies MEDICATIONS Current Outpatient Medications Medication Sig FLUoxetine (PROZAC) 10 mg capsule Take 1 capsule by mouth once daily. LORATADINE ORAL Take by mouth. valACYclovir (VALTREX) 1 gram Take 1 tablet by mouth twice daily. For cold sore outbreak fluticasone (FLONASE) 50 mcg/actuation nasal spray Use 2 Sprays in each nostril once daily. Rinse mouth after use. (Patient taking differently: Use 2 Sprays in each nostril once daily. Rinse mouth after use.... uses as needed ) emiqnfng-wouc-HX-calcium-mins (ONE-A-DAY WOMENS FORMULA) 18 mg iron-400 mcg-500 mg Ca tab multivitamin (OPTIVITE P.M.T. ORAL) albuterol HFA (VENTOLIN HFA) 90 mcg/actuation inhaler Inhale 2 Puffs as instructed every 4 hours as needed for Wheezing/Shortness of Breath. No current facility-administered medications for this visit. FAMILY HISTORY Problem Relation Age of Onset other (mental health) Mother Stroke Father other (Epilepsy) Father Anxiety disorder Sister Depression Sister Asthma Sister Prematurity Sister other (one kidney) Sister Anxiety disorder Brother Stroke Maternal Grandfather Alzheimer's Disease Maternal Grandfather Heart Paternal Grandmother Stroke Paternal Grandmother Social History Tobacco Use Smoking status: Never Smoker Smokeless tobacco: Never Used Vaping Use Vaping Use: Never used Substance Use Topics Alcohol use: Yes Comment: rare Drug use: Never EXAM: BP 110/76 Pulse 94 Resp 18 Wt 96.2 kg (212 lb) LMP 10/05/2021 SpO2 97% BMI 36.39 kg/m PHYSICAL EXAM: General Appearance: Well appearing, alert, in no acute distress, well-hydrated, well nourished. Teary at times. Skin: Skin color, texture, turgor normal, no suspicious rashes or lesions. Head: Normocephalic, no masses, lesions, tenderness or abnormalities. Eyes: Anicteric sclera.. Extraocular movements are intact. . Neurologic: Gait normal. ASSESSMENT/PLAN: 1. Recurrent major depressive disorder, in remission (HCC) - ICD9: 296.35, ICD10: F33.40 Pt reports some cyclic symptoms. Discussed that we can individualize her treatment regimen. Will continue prozac 10 mg daily on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 Reviewed ASA- has not started - will try now. * Assessment & Plan Note - Esther Milligan MD - 07/07/2024 4:28 PM EST Associated Problem(s): Anxiety and depression * Assessment & Plan Note - Esther Milligan MD - 07/07/2024 4:28 PM EST Associated Problem(s): Rubella non-immune status, antepartum MMR vaccine PP reviewed documented in this encounter [facility] note* Diagnosis Encounter for routine adult medical examination- Primary Recurrent major depressive disorder, in remission Need for vaccination Need for prophylactic vaccination and inoculation against unspecified single disease Obesity in (HCC)- Primary Obesity complicating , childbirth, or the puerperium, unspecified as to episode of care or not applicable Encounter for supervision of normal first in second trimester ([facility]) Supervision of normal first Anxiety and depression Dysthymic disorder Nausea and vomiting during (HCC) 16 weeks gestation of (HCC) state, incidental Rubella non-immune status, antepartum ([facility]) Other specified complication, antepartum Mood disorder- Primary Unspecified episodic mood disorder Generalized anxiety disorder Encounter for long-term (current) use of medications Encounter for long-term (current) use of other medications 20 weeks gestation of (HCC) state, incidental documented in this encounter [facility] note* Diagnosis Encounter for routine adult medical examination- Primary Recurrent major depressive disorder, in remission Need for vaccination Need for prophylactic vaccination and inoculation against unspecified single disease Obesity in (HCC)- Primary Obesity complicating , childbirth, or the puerperium, unspecified as to episode of care or not applicable Encounter for supervision of normal first in second trimester ([facility]) Supervision of normal first Anxiety and depression Dysthymic disorder Nausea and vomiting during ([facility]) 16 weeks gestation of ([facility]) state, incidental Rubella non-immune status, antepartum ([facility]) Other specified complication, antepartum Supervision of high risk in second trimester ([facility])- Primary Unspecified high-risk 20 weeks gestation of ([facility]) state, incidental Obesity in ([facility]) Obesity complicating , childbirth, or the puerperium, unspecified as to episode of care or not applicable History of suicide attempt Personal history of other mental disorder Nausea and vomiting during ([facility]) documented in this encounter [facility] note* Diagnosis Encounter for routine adult medical examination- Primary Recurrent major depressive disorder, in remission Need for vaccination Need for prophylactic vaccination and inoculation against unspecified single disease Obesity in ([facility])- Primary Obesity complicating , childbirth, or the puerperium, unspecified as to episode of care or not applicable Encounter for supervision of normal first in second trimester ([facility]) Supervision of normal first Anxiety and depression Dysthymic disorder Nausea and vomiting during ([facility]) 16 weeks gestation of ([facility]) state, incidental Rubella non-immune status, antepartum ([facility]) Other specified complication, antepartum Encounter for anatomic survey ([facility])- Primary Encounter for anatomic survey 20 weeks gestation of ([facility]) state, incidental Obesity affecting in second trimester, unspecified obesity type ([facility]) documented in this encounter [facility] note* Diagnosis Encounter for routine adult medical examination- Primary Recurrent major depressive disorder, in remission Need for vaccination Need for prophylactic vaccination and inoculation against unspecified single disease Rubella non-immune status, antepartum ([facility])- Primary Other specified complication, antepartum Obesity in ([facility])- Primary Obesity complicating , childbirth, or the puerperium, unspecified as to episode of care or not applicable Encounter for supervision of normal first in second trimester ([facility]) Supervision of normal first Anxiety and depression Dysthymic disorder Nausea and vomiting during ([facility]) 16 weeks gestation of ([facility]) state, incidental Rubella non-immune status, antepartum ([facility]) Other specified complication, antepartum documented in this encounter [facility] note* Diagnosis Encounter for routine adult medical examination- Primary Recurrent major depressive disorder, in remission Need for vaccination Need for prophylactic vaccination and inoculation against unspecified single disease Obesity in (HCC)- Primary Obesity complicating , childbirth, or the puerperium, unspecified as to episode of care or not applicable Encounter for supervision of normal first in second trimester ([facility]) Supervision of normal first Anxiety and depression Dysthymic disorder Nausea and vomiting during ([facility]) 16 weeks gestation of ([facility]) state, incidental Rubella non-immune status, antepartum ([facility]) Other specified complication, antepartum Supervision of high risk in second trimester ([facility])- Primary Unspecified high-risk 24 weeks gestation of ([facility]) state, incidental Obesity in ([facility]) Obesity complicating , childbirth, or the puerperium, unspecified as to episode of care or not applicable Rubella non-immune status, antepartum ([facility]) Other specified complication, antepartum Anxiety and depression Dysthymic disorder Supervision of high risk in third trimester ([facility]) Unspecified high-risk Obesity affecting in third trimester, unspecified obesity type ([facility]) Screening for diabetes mellitus [facility] [place] [facility]* Diagnosis Encounter for routine adult medical examination- Primary Recurrent major depressive disorder, in remission Need for vaccination Need for prophylactic vaccination and inoculation against unspecified single disease Obesity in (HCC)- Primary Obesity complicating , childbirth, or the puerperium, unspecified as to episode of care or not applicable Encounter for supervision of normal first in second trimester ([facility]) Supervision of normal first Anxiety and depression Dysthymic disorder Nausea and vomiting during ([facility]) 16 weeks gestation of ([facility]) state, incidental Rubella non-immune status, antepartum ([facility]) Other specified complication, antepartum Generalized anxiety disorder- Primary 25 weeks gestation of ([facility]) state, incidental [facility] [place] Diagnosis Encounter for routine adult medical examination- Primary Recurrent major depressive disorder, in remission Need for vaccination Need for prophylactic vaccination and inoculation against unspecified single disease Obesity in ([facility])- Primary Obesity complicating , childbirth, or the puerperium, unspecified as to episode of care or not applicable Encounter for supervision of normal first in second trimester ([facility]) Supervision of normal first Anxiety and depression Dysthymic disorder Nausea and vomiting during ([facility]) 16 weeks gestation of ([facility]) state, incidental Rubella non-immune status, antepartum ([facility]) Other specified complication, antepartum Supervision of high risk in third trimester ([facility])- Primary Unspecified high-risk Obesity affecting in third trimester, unspecified obesity type (HCC) 28 weeks gestation of ([facility]) state, incidental Need for vaccination Need for prophylactic vaccination and inoculation against unspecified single disease documented in this encounter [facility] note* Diagnosis Encounter for routine adult medical examination- Primary Recurrent major depressive disorder, in remission Need for vaccination Need for prophylactic vaccination and inoculation against unspecified single disease Obesity in ([facility])- Primary Obesity complicating , childbirth, or the puerperium, unspecified as to episode of care or not applicable Encounter for supervision of normal first in second trimester ([facility]) Supervision of normal first Anxiety and depression Dysthymic disorder Nausea and vomiting during ([facility]) 16 weeks gestation of ([facility]) state, incidental Rubella non-immune status, antepartum ([facility]) Other specified complication, antepartum Supervision of high risk in third trimester ([facility])- Primary Unspecified high-risk Obesity affecting in third trimester, unspecified obesity type ([facility]) Anxiety and depression Dysthymic disorder 30 weeks gestation of ([facility]) state, incidental documented in this encounter [facility] note* Diagnosis Encounter for routine adult medical examination- Primary Recurrent major depressive disorder, in remission Need for vaccination Need for prophylactic vaccination and inoculation against unspecified single disease Obesity in ([facility])- Primary Obesity complicating , childbirth, or the puerperium, unspecified as to episode of care or not applicable Encounter for supervision of normal first in second trimester ([facility]) Supervision of normal first Anxiety and depression Dysthymic disorder Nausea and vomiting during ([facility]) 16 weeks gestation of ([facility]) state, incidental Rubella non-immune status, antepartum ([facility]) Other specified complication, antepartum Obesity affecting in third trimester, unspecified obesity type ([facility])- Primary Supervision of high risk in third trimester ([facility]) Unspecified high-risk Anxiety and depression Dysthymic disorder 32 weeks gestation of ([facility]) state, incidental Supervision of high risk in second trimester ([facility]) Unspecified high-risk [facility] Encounter for routine adult medical examination- Primary Recurrent major depressive disorder, in remission Need for vaccination Need for prophylactic vaccination and inoculation against unspecified single disease Obesity in (HCC)- Primary Obesity complicating , childbirth, or the puerperium, unspecified as to episode of care or not applicable Encounter for supervision of normal first in second trimester ([facility]) Supervision of normal first Anxiety and depression Dysthymic disorder Nausea and vomiting during ([facility]) 16 weeks gestation of ([facility]) state, incidental Rubella non-immune status, antepartum ([facility]) Other specified complication, antepartum Obesity in (HCC)- Primary Obesity complicating , childbirth, or the puerperium, unspecified as to episode of care or not applicable Supervision of high risk in third trimester ([facility]) Unspecified high-risk Obesity affecting in third trimester, unspecified obesity type ([facility]) documented in this encounter [facility]* Diagnosis Encounter for routine adult medical examination- Primary Recurrent major depressive disorder, in remission Need for vaccination Need for prophylactic vaccination and inoculation against unspecified single disease Obesity in (HCC)- Primary Obesity complicating , childbirth, or the puerperium, unspecified as to episode of care or not applicable Encounter for supervision of normal first in second trimester ([facility]) Supervision of normal first Anxiety and depression Dysthymic disorder Nausea and vomiting during ([facility]) 16 weeks gestation of ([facility]) state, incidental Rubella non-immune status, antepartum ([facility]) Other specified complication, antepartum Supervision of high risk in third trimester ([facility])- Primary Unspecified high-risk Obesity affecting in third trimester, unspecified obesity type ([facility]) Anxiety and depression Dysthymic disorder Rubella non-immune status, antepartum ([facility]) Other specified complication, antepartum 33 weeks gestation of ([facility]) state, incidental [facility] [place] [facility] Diagnosis Encounter for routine adult medical examination- Primary Recurrent major depressive disorder, in remission Need for vaccination Need for prophylactic vaccination and inoculation against unspecified single disease Obesity in (HCC)- Primary Obesity complicating , childbirth, or the puerperium, unspecified as to episode of care or not applicable Encounter for supervision of normal first in second trimester ([facility]) Supervision of normal first Anxiety and depression Dysthymic disorder Nausea and vomiting during (HCC) 16 weeks gestation of (HCC) state, incidental Rubella non-immune status, antepartum ([facility]) Other specified complication, antepartum 35 weeks gestation of ([facility])- Primary state, incidental Supervision of high risk in third trimester (HCC) Unspecified high-risk Obesity affecting in third trimester, unspecified obesity type ([facility]) documented in this encounter [facility] note* Diagnosis Encounter for routine adult medical examination- Primary Recurrent major depressive disorder, in remission Need for vaccination Need for prophylactic vaccination and inoculation against unspecified single disease Obesity in (HCC)- Primary Obesity complicating , childbirth, or the puerperium, unspecified as to episode of care or not applicable Encounter for supervision of normal first in second trimester ([facility]) Supervision of normal first Anxiety and depression Dysthymic disorder Nausea and vomiting during (HCC) 16 weeks gestation of ([facility]) state, incidental Rubella non-immune status, antepartum ([facility]) Other specified complication, antepartum Obesity in ([facility])- Primary Obesity complicating , childbirth, or the puerperium, unspecified as to episode of care or not applicable Supervision of high risk in third trimester ([facility]) Unspecified high-risk Obesity affecting in third trimester, unspecified obesity type ([facility]) documented in this encounter [facility] note* Diagnosis Encounter for routine adult medical examination- Primary Recurrent major depressive disorder, in remission Need for vaccination Need for prophylactic vaccination and inoculation against unspecified single disease Obesity in (HCC)- Primary Obesity complicating , childbirth, or the puerperium, unspecified as to episode of care or not applicable Encounter for supervision of normal first in second trimester ([facility]) Supervision of normal first Anxiety and depression Dysthymic disorder Nausea and vomiting during (HCC) 16 weeks gestation of ([facility]) state, incidental Rubella non-immune status, antepartum ([facility]) Other specified complication, antepartum Obesity affecting in third trimester, unspecified obesity type ([facility])- Primary 37 weeks gestation of ([facility]) state, incidental Supervision of high risk in second trimester ([facility]) Unspecified high-risk documented in this encounter [facility] note* Diagnosis Encounter for routine adult medical examination- Primary Recurrent major depressive disorder, in remission Need for vaccination Need for prophylactic vaccination and inoculation against unspecified single disease Obesity in (HCC)- Primary Obesity complicating , childbirth, or the puerperium, unspecified as to episode of care or not applicable Encounter for supervision of normal first in second trimester ([facility]) Supervision of normal first Anxiety and depression Dysthymic disorder Nausea and vomiting during ([facility]) 16 weeks gestation of ([facility]) state, incidental Rubella non-immune status, antepartum ([facility]) Other specified complication, antepartum Obesity affecting in third trimester, unspecified obesity type ([facility])- Primary Supervision of high risk in third trimester ([facility]) Unspecified high-risk Herpes simplex Herpes simplex without mention of complication 37 weeks gestation of ([facility]) state, incidental * Assessment & Plan Note - Esther Milligan MD - 11/30/2024 4:08 PM EDT Associated Problem(s): Herpes simplex Continue acylcovir documented in this encounter [facility] for referral (narrative)* Outpatient Procedure (Routine) - Authorized Specialty Diagnoses / Procedures Referred By Contac t Referred To [facility] Diagnoses Numbness and tingling Cold extremities Procedures PVR ANK PRESS [facility] NON-INVAS PHYSIOLOGIC STD EXTREMITY ART 2 LEVEL Светлана Srinivasan APRN.PATTERN MARKING SUPERVISOR [address] [place] [address] [facility] [address] [place] [id number] Referral ID Status Reason Start Date Expiration Date Visits Requested Visits Authorized [id number] Authorized Auto-Generat ed Referral 01/16/2022 01/16/2023 1 1 [facility] for referral (narrative)* Diagnostic Procedure Only (Routine) - Authorized Specialty Diagnoses / Procedures Referred By Contac t Referred To Contact [facility] Diagnoses Low back pain, unspecified back pain laterality, unspecified chronicity, unspecified whether sciatica present Procedures US KIDNEY/BLADDER US RETROPERITONEAL REAL TIME W/IMAGE COMPLETE Светлана Srinivasan APRN.PATTERN MARKING SUPERVISOR [address] [place] [address] [place] [address] Referral ID Status Reason Start Date Expiration Date Visits Requested Visits Authorized [id number] Authorized Auto-Generat ed Referral 06/16/2023 07/15/2024 1 1 [facility] Diagnostic Procedure Only (Routine) - Authorized Specialty Diagnoses / Procedures Referred By Contac t Referred To Contact [facility] Diagnoses Encounter for supervision of normal first in first trimester with uncertain dates, antepartum Procedures NUCHAL TRANSLUCENCY WHI US NUCHAL TRANSLUCENCY GESTATION Emilee Rose APRN.CNM [address] [place] [address] [facility] [address] [place] [address] Referral ID Status Reason Start Date Expiration Date Visits Requested Visits Authorized [id number] Authorized Auto-Generat ed Referral 05/12/2024 05/12/2025 1 1 * Diagnostic Procedure Only (Routine) - Authorized Specialty Diagnoses / Procedures Referred By Contac t Referred To Contact [facility] Diagnoses Encounter for supervision of normal first in first trimester with uncertain dates, antepartum Procedures OBSTETRIC ULTRASOUND WHI US PREG UTERUS AFTER 1ST TRIMEST GESTATION Emilee Rose APRN.CNM [address] [place] [address] [facility] [address] [place] [address] Referral ID Status Reason Start Date Expiration Date Visits Requested Visits Authorized [id number] Authorized Auto-Generat ed Referral 05/12/2024 05/12/2025 1 1 [facility] Summary Purpose Family History No Family History Records FoundNo Family History Records FoundNo Family History Records FoundNo Family History Records Found Advance Directives No Advanced Directives Records FoundNo Advanced Directives Records FoundNo Advanced Directives Records FoundNo Advanced Directives Records Found Reason for Referral Specialty Diagnoses / Procedures Referred By Contac t Referred To Contact Orthopedics Diagnoses Bilateral hand pain Acute pain of right shoulder Procedures CONSULT TO ORTHOPAEDICS OFFICE/OUTPATIENT [facility] MDM 60-74 MINUTES Светлана Srinivasan APRN.PATTERN MARKING SUPERVISOR [address] [place] [address] Referral ID Status Reason Start Date Expiration Date Visits Requested Visits Authorized [id number] Pending Review PCP Requested Referral 12/23/2022 12/23/2023 1 1 Specialty Diagnoses / Procedures Referred By Contac t Referred To Contact [facility] Diagnoses Bilateral hand pain Procedures EMG(NEURO/NI) NERVE CONDUCTION STUDIES 9-10 STUDIES Светлана Srinivasan APRN.PATTERN MARKING SUPERVISOR [address] [place] [address] [facility] [address] [place] [address] Referral ID Status Reason Start Date Expiration Date Visits Requested Visits Authorized [id number] Pending Review Auto-Generat ed Referral 12/23/2022 12/24/2023 1 1 Specialty Diagnoses / Procedures Referred By Contac t Referred To Contact Diagnoses Moderate episode of recurrent major depressive disorder (HCC) Procedures CONSULT TO PSYCHIATRY OFFICE/OUTPATIENT [facility] MDM 60-74 MINUTES Светлана Srinivasan APRN.PATTERN MARKING SUPERVISOR [address] [place] [address] Referral ID Status Reason Start Date Expiration Date Visits Requested Visits Authorized [id number] Pending Review PCP Requested Referral 02/06/2023 02/06/2024 1 1 Additional Source Comments INFORMATION SOURCE (unrecogn ized section and content) DATE CREATED AUTHOR 10/28/2017 [facility] Aylin Delgado DATE CREATED AUTHOR AUTHOR'S ORGANIZ ATION 11/19/2023 [facility] DATE CREATED AUTHOR AUTHOR'S ORGANIZ ATION 11/24/2024 [facility] DATE CREATED AUTHOR AUTHOR'S ORGANIZ ATION 12/05/2024 [facility] Source Comments (unrecognize d section and content) In the event this informatio n is protected by the Federal Confidentiality of Alcohol and Drug Abuse Patient Records regulations: The Federal rules restrict any use of the information to criminally investigate or prosecute any alcohol or drug abuse patient.[facility] Center[facility] the event this information is protected by the Federal Confidentiality of Alcohol and Drug Abuse Patient Records regulations: The Federal rules restrict any use of the information to criminally investigate or prosecute any alcohol or drug abuse patient.[facility] CenterIn the event this information is protected by the Federal Confidentiality of Alcohol and Drug Abuse Patient Records regulations: The Federal rules restrict any use of the information to criminally investigate or prosecute any alcohol or drug abuse patient.[facility] CenterIn the event this information is protected by the Federal Confidentiality of Alcohol and Drug Abuse Patient Records regulations: The Federal rules restrict any use of the information to criminally investigate or prosecute any alcohol or drug abuse patient.[facility] CenterIn the event this information is protected by the Federal Confidentiality of Alcohol and Drug Abuse Patient Records regulations: The Federal rules restrict any use of the information to criminally investigate or prosecute any alcohol or drug abuse patient.[facility] CenterIn the event this information is protected by the Federal Confidentiality of Alcohol and Drug Abuse Patient Records regulations: The Federal rules restrict any use of the information to criminally investigate or prosecute any alcohol or drug abuse patient.[facility] CenterIn the event this information is protected by the Federal Confidentiality of Alcohol and Drug Abuse Patient Records regulations: The Federal rules restrict any use of the information to criminally investigate or prosecute any alcohol or drug abuse patient.[facility] CenterIn the event this information is protected by the Federal Confidentiality of Alcohol and Drug Abuse Patient Records regulations: The Federal rules restrict any use of the information to criminally investigate or prosecute any alcohol or drug abuse patient.[facility] CenterIn the event this information is protected by the Federal Confidentiality of Alcohol and Drug Abuse Patient Records regulations: The Federal rules restrict any use of the information to criminally investigate or prosecute any alcohol or drug abuse patient.[facility] CenterIn the event this information is protected by the Federal Confidentiality of Alcohol and Drug Abuse Patient Records regulations: The Federal rules restrict any use of the information to criminally investigate or prosecute any alcohol or drug abuse patient.[facility] CenterIn the event this information is protected by the Federal Confidentiality of Alcohol and Drug Abuse Patient Records regulations: The Federal rules restrict any use of the information to criminally investigate or prosecute any alcohol or drug abuse patient.[facility] CenterIn the event this information is protected by the Federal Confidentiality of Alcohol and Drug Abuse Patient Records regulations: The Federal rules restrict any use of the information to criminally investigate or prosecute any alcohol or drug abuse patient.[facility] CenterIn the event this information is protected by the Federal Confidentiality of Alcohol and Drug Abuse Patient Records regulations: The Federal rules restrict any use of the information to criminally investigate or prosecute any alcohol or drug abuse patient.[facility] CenterIn the event this information is protected by the Federal Confidentiality of Alcohol and Drug Abuse Patient Records regulations: The Federal rules restrict any use of the information to criminally investigate or prosecute any alcohol or drug abuse patient.[facility] CenterIn the event this information is protected by the Federal Confidentiality of Alcohol and Drug Abuse Patient Records regulations: The Federal rules restrict any use of the information to criminally investigate or prosecute any alcohol or drug abuse patient.[facility] CenterIn the event this information is protected by the Federal Confidentiality of Alcohol and Drug Abuse Patient Records regulations: The Federal rules restrict any use of the information to criminally investigate or prosecute any alcohol or drug abuse patient.[facility] CenterIn the event this information is protected by the Federal Confidentiality of Alcohol and Drug Abuse Patient Records regulations: The Federal rules restrict any use of the information to criminally investigate or prosecute any alcohol or drug abuse patient.[facility] CenterIn the event this information is protected by the Federal Confidentiality of Alcohol and Drug Abuse Patient Records regulations: The Federal rules restrict any use of the information to criminally investigate or prosecute any alcohol or drug abuse patient.[facility] CenterIn the event this information is protected by the Federal Confidentiality of Alcohol and Drug Abuse Patient Records regulations: The Federal rules restrict any use of the information to criminally investigate or prosecute any alcohol or drug abuse patient.[facility] CenterIn the event this information is protected by the Federal Confidentiality of Alcohol and Drug Abuse Patient Records regulations: The Federal rules restrict any use of the information to criminally investigate or prosecute any alcohol or drug abuse patient.[facility] CenterIn the event this information is protected by the Federal Confidentiality of Alcohol and Drug Abuse Patient Records regulations: The Federal rules restrict any use of the information to criminally investigate or prosecute any alcohol or drug abuse patient.[facility] CenterIn the event this information is protected by the Federal Confidentiality of Alcohol and Drug Abuse Patient Records regulations: The Federal rules restrict any use of the information to criminally investigate or prosecute any alcohol or drug abuse patient.[facility] CenterIn the event this information is protected by the Federal Confidentiality of Alcohol and Drug Abuse Patient Records regulations: The Federal rules restrict any use of the information to criminally investigate or prosecute any alcohol or drug abuse patient.[facility] CenterIn the event this information is protected by the Federal Confidentiality of Alcohol and Drug Abuse Patient Records regulations: The Federal rules restrict any use of the information to criminally investigate or prosecute any alcohol or drug abuse patient.[facility] CenterIn the event this information is protected by the Federal Confidentiality of Alcohol and Drug Abuse Patient Records regulations: The Federal rules restrict any use of the information to criminally investigate or prosecute any alcohol or drug abuse patient.[facility] CenterIn the event this information is protected by the Federal Confidentiality of Alcohol and Drug Abuse Patient Records regulations: The Federal rules restrict any use of the information to criminally investigate or prosecute any alcohol or drug abuse patient.[facility] CenterIn the event this information is protected by the Federal Confidentiality of Alcohol and Drug Abuse Patient Records regulations: The Federal rules restrict any use of the information to criminally investigate or prosecute any alcohol or drug abuse patient.[facility] CenterIn the event this information is protected by the Federal Confidentiality of Alcohol and Drug Abuse Patient Records regulations: The Federal rules restrict any use of the information to criminally investigate or prosecute any alcohol or drug abuse patient.[facility] CenterIn the event this information is protected by the Federal Confidentiality of Alcohol and Drug Abuse Patient Records regulations: The Federal rules restrict any use of the information to criminally investigate or prosecute any alcohol or drug abuse patient.[facility] CenterIn the event this information is protected by the Federal Confidentiality of Alcohol and Drug Abuse Patient Records regulations: The Federal rules restrict any use of the information to criminally investigate or prosecute any alcohol or drug abuse patient.[facility] CenterIn the event this information is protected by the Federal Confidentiality of Alcohol and Drug Abuse Patient Records regulations: The Federal rules restrict any use of the information to criminally investigate or prosecute any alcohol or drug abuse patient.[facility] CenterIn the event this information is protected by the Federal Confidentiality of Alcohol and Drug Abuse Patient Records regulations: The Federal rules restrict any use of the information to criminally investigate or prosecute any alcohol or drug abuse patient.[facility] CenterIn the event this information is protected by the Federal Confidentiality of Alcohol and Drug Abuse Patient Records regulations: The Federal rules restrict any use of the information to criminally investigate or prosecute any alcohol or drug abuse patient.[facility] CenterIn the event this information is protected by the Federal Confidentiality of Alcohol and Drug Abuse Patient Records regulations: The Federal rules restrict any use of the information to criminally investigate or prosecute any alcohol or drug abuse patient.[facility] CenterIn the event this information is protected by the Federal Confidentiality of Alcohol and Drug Abuse Patient Records regulations: The Federal rules restrict any use of the information to criminally investigate or prosecute any alcohol or drug abuse patient.[facility] CenterIn the event this information is protected by the Federal Confidentiality of Alcohol and Drug Abuse Patient Records regulations: The Federal rules restrict any use of the information to criminally investigate or prosecute any alcohol or drug abuse patient.[facility] CenterIn the event this information is protected by the Federal Confidentiality of Alcohol and Drug Abuse Patient Records regulations: The Federal rules restrict any use of the information to criminally investigate or prosecute any alcohol or drug abuse patient.[facility] CenterIn the event this information is protected by the Federal Confidentiality of Alcohol and Drug Abuse Patient Records regulations: The Federal rules restrict any use of the information to criminally investigate or prosecute any alcohol or drug abuse patient.[facility] CenterIn the event this information is protected by the Federal Confidentiality of Alcohol and Drug Abuse Patient Records regulations: The Federal rules restrict any use of the information to criminally investigate or prosecute any alcohol or drug abuse patient.[facility] CenterIn the event this information is protected by the Federal Confidentiality of Alcohol and Drug Abuse Patient Records regulations: The Federal rules restrict any use of the information to criminally investigate or prosecute any alcohol or drug abuse patient.[facility] CenterIn the event this information is protected by the Federal Confidentiality of Alcohol and Drug Abuse Patient Records regulations: The Federal rules restrict any use of the information to criminally investigate or prosecute any alcohol or drug abuse patient.[facility] CenterIn the event this information is protected by the Federal Confidentiality of Alcohol and Drug Abuse Patient Records regulations: The Federal rules restrict any use of the information to criminally investigate or prosecute any alcohol or drug abuse patient.[facility] CenterIn the event this information is protected by the Federal Confidentiality of Alcohol and Drug Abuse Patient Records regulations: The Federal rules restrict any use of the information to criminally investigate or prosecute any alcohol or drug abuse patient.[facility] the event this information is protected by the Federal Confidentiality of Alcohol and Drug Abuse Patient Records regulations: The Federal rules restrict any use of the information to criminally investigate or prosecute any alcohol or drug abuse patient.[facility] CenterIn the event this information is protected by the Federal Confidentiality of Alcohol and Drug Abuse Patient Records regulations: The Federal rules restrict any use of the information to criminally investigate or prosecute any alcohol or drug abuse patient.[facility] CenterIn the event this information is protected by the Federal Confidentiality of Alcohol and Drug Abuse Patient Records regulations: The Federal rules restrict any use of the information to criminally investigate or prosecute any alcohol or drug abuse patient.[facility] CenterIn the event this information is protected by the Federal Confidentiality of Alcohol and Drug Abuse Patient Records regulations: The Federal rules restrict any use of the information to criminally investigate or prosecute any alcohol or drug abuse patient.[facility] CenterIn the event this information is protected by the Federal Confidentiality of Alcohol and Drug Abuse Patient Records regulations: The Federal rules restrict any use of the information to criminally investigate or prosecute any alcohol or drug abuse patient.[facility] CenterIn the event this information is protected by the Federal Confidentiality of Alcohol and Drug Abuse Patient Records regulations: The Federal rules restrict any use of the information to criminally investigate or prosecute any alcohol or drug abuse patient.[facility] CenterIn the event this information is protected by the Federal Confidentiality of Alcohol and Drug Abuse Patient Records regulations: The Federal rules restrict any use of the information to criminally investigate or prosecute any alcohol or drug abuse patient.[facility] CenterIn the event this information is protected by the Federal Confidentiality of Alcohol and Drug Abuse Patient Records regulations: The Federal rules restrict any use of the information to criminally investigate or prosecute any alcohol or drug abuse patient.[facility] CenterIn the event this information is protected by the Federal Confidentiality of Alcohol and Drug Abuse Patient Records regulations: The Federal rules restrict any use of the information to criminally investigate or prosecute any alcohol or drug abuse patient.[facility] CenterIn the event this information is protected by the Federal Confidentiality of Alcohol and Drug Abuse Patient Records regulations: The Federal rules restrict any use of the information to criminally investigate or prosecute any alcohol or drug abuse patient.[facility] CenterIn the event this information is protected by the Federal Confidentiality of Alcohol and Drug Abuse Patient Records regulations: The Federal rules restrict any use of the information to criminally investigate or prosecute any alcohol or drug abuse patient.[facility] CenterIn the event this information is protected by the Federal Confidentiality of Alcohol and Drug Abuse Patient Records regulations: The Federal rules restrict any use of the information to criminally investigate or prosecute any alcohol or drug abuse patient.[facility] CenterIn the event this information is protected by the Federal Confidentiality of Alcohol and Drug Abuse Patient Records regulations: The Federal rules restrict any use of the information to criminally investigate or prosecute any alcohol or drug abuse patient.[facility] CenterIn the event this information is protected by the Federal Confidentiality of Alcohol and Drug Abuse Patient Records regulations: The Federal rules restrict any use of the information to criminally investigate or prosecute any alcohol or drug abuse patient.[facility] CenterIn the event this information is protected by the Federal Confidentiality of Alcohol and Drug Abuse Patient Records regulations: The Federal rules restrict any use of the information to criminally investigate or prosecute any alcohol or drug abuse patient.[facility] CenterIn the event this information is protected by the Federal Confidentiality of Alcohol and Drug Abuse Patient Records regulations: The Federal rules restrict any use of the information to criminally investigate or prosecute any alcohol or drug abuse patient.[facility] CenterIn the event this information is protected by the Federal Confidentiality of Alcohol and Drug Abuse Patient Records regulations: The Federal rules restrict any use of the information to criminally investigate or prosecute any alcohol or drug abuse patient.[facility] CenterIn the event this information is protected by the Federal Confidentiality of Alcohol and Drug Abuse Patient Records regulations: The Federal rules restrict any use of the information to criminally investigate or prosecute any alcohol or drug abuse patient.[facility] CenterIn the event this information is protected by the Federal Confidentiality of Alcohol and Drug Abuse Patient Records regulations: The Federal rules restrict any use of the information to criminally investigate or prosecute any alcohol or drug abuse patient.[facility] CenterIn the event this information is protected by the Federal Confidentiality of Alcohol and Drug Abuse Patient Records regulations: The Federal rules restrict any use of the information to criminally investigate or prosecute any alcohol or drug abuse patient.[facility] CenterIn the event this information is protected by the Federal Confidentiality of Alcohol and Drug Abuse Patient Records regulations: The Federal rules restrict any use of the information to criminally investigate or prosecute any alcohol or drug abuse patient.[facility] CenterIn the event this information is protected by the Federal Confidentiality of Alcohol and Drug Abuse Patient Records regulations: The Federal rules restrict any use of the information to criminally investigate or prosecute any alcohol or drug abuse patient.[facility] CenterIn the event this information is protected by the Federal Confidentiality of Alcohol and Drug Abuse Patient Records regulations: The Federal rules restrict any use of the information to criminally investigate or prosecute any alcohol or drug abuse patient.[facility] CenterIn the event this information is protected by the Federal Confidentiality of Alcohol and Drug Abuse Patient Records regulations: The Federal rules restrict any use of the information to criminally investigate or prosecute any alcohol or drug abuse patient.[facility] CenterIn the event this information is protected by the Federal Confidentiality of Alcohol and Drug Abuse Patient Records regulations: The Federal rules restrict any use of the information to criminally investigate or prosecute any alcohol or drug abuse patient.[facility] CenterIn the event this information is protected by the Federal Confidentiality of Alcohol and Drug Abuse Patient Records regulations: The Federal rules restrict any use of the information to criminally investigate or prosecute any alcohol or drug abuse patient.[facility] CenterIn the event this information is protected by the Federal Confidentiality of Alcohol and Drug Abuse Patient Records regulations: The Federal rules restrict any use of the information to criminally investigate or prosecute any alcohol or drug abuse patient.[facility] CenterIn the event this information is protected by the Federal Confidentiality of Alcohol and Drug Abuse Patient Records regulations: The Federal rules restrict any use of the information to criminally investigate or prosecute any alcohol or drug abuse patient.[facility] CenterIn the event this information is protected by the Federal Confidentiality of Alcohol and Drug Abuse Patient Records regulations: The Federal rules restrict any use of the information to criminally investigate or prosecute any alcohol or drug abuse patient.[facility] CenterIn the event this information is protected by the Federal Confidentiality of Alcohol and Drug Abuse Patient Records regulations: The Federal rules restrict any use of the information to criminally investigate or prosecute any alcohol or drug abuse patient.[facility] CenterIn the event this information is protected by the Federal Confidentiality of Alcohol and Drug Abuse Patient Records regulations: The Federal rules restrict any use of the information to criminally investigate or prosecute any alcohol or drug abuse patient.[facility] CenterIn the event this information is protected by the Federal Confidentiality of Alcohol and Drug Abuse Patient Records regulations: The Federal rules restrict any use of the information to criminally investigate or prosecute any alcohol or drug abuse patient.[facility] CenterIn the event this information is protected by the Federal Confidentiality of Alcohol and Drug Abuse Patient Records regulations: The Federal rules restrict any use of the information to criminally investigate or prosecute any alcohol or drug abuse patient.[facility] CenterIn the event this information is protected by the Federal Confidentiality of Alcohol and Drug Abuse Patient Records regulations: The Federal rules restrict any use of the information to criminally investigate or prosecute any alcohol or drug abuse patient.[facility] CenterIn the event this information is protected by the Federal Confidentiality of Alcohol and Drug Abuse Patient Records regulations: The Federal rules restrict any use of the information to criminally investigate or prosecute any alcohol or drug abuse patient.[facility] CenterIn the event this information is protected by the Federal Confidentiality of Alcohol and Drug Abuse Patient Records regulations: The Federal rules restrict any use of the information to criminally investigate or prosecute any alcohol or drug abuse patient.[facility] CenterIn the event this information is protected by the Federal Confidentiality of Alcohol and Drug Abuse Patient Records regulations: The Federal rules restrict any use of the information to criminally investigate or prosecute any alcohol or drug abuse patient.[facility] CenterIn the event this information is protected by the Federal Confidentiality of Alcohol and Drug Abuse Patient Records regulations: The Federal rules restrict any use of the information to criminally investigate or prosecute any alcohol or drug abuse patient.[facility] CenterIn the event this information is protected by the Federal Confidentiality of Alcohol and Drug Abuse Patient Records regulations: The Federal rules restrict any use of the information to criminally investigate or prosecute any alcohol or drug abuse patient.[facility] CenterIn the event this information is protected by the Federal Confidentiality of Alcohol and Drug Abuse Patient Records regulations: The Federal rules restrict any use of the information to criminally investigate or prosecute any alcohol or drug abuse patient.[facility] CenterIn the event this information is protected by the Federal Confidentiality of Alcohol and Drug Abuse Patient Records regulations: The Federal rules restrict any use of the information to criminally investigate or prosecute any alcohol or drug abuse patient.[facility] CenterIn the event this information is protected by the Federal Confidentiality of Alcohol and Drug Abuse Patient Records regulations: The Federal rules restrict any use of the information to criminally investigate or prosecute any alcohol or drug abuse patient.[facility] CenterIn the event this information is protected by the Federal Confidentiality of Alcohol and Drug Abuse Patient Records regulations: The Federal rules restrict any use of the information to criminally investigate or prosecute any alcohol or drug abuse patient.[facility] CenterIn the event this information is protected by the Federal Confidentiality of Alcohol and Drug Abuse Patient Records regulations: The Federal rules restrict any use of the information to criminally investigate or prosecute any alcohol or drug abuse patient.[facility] CenterIn the event this information is protected by the Federal Confidentiality of Alcohol and Drug Abuse Patient Records regulations: The Federal rules restrict any use of the information to criminally investigate or prosecute any alcohol or drug abuse patient.[facility] CenterIn the event this information is protected by the Federal Confidentiality of Alcohol and Drug Abuse Patient Records regulations: The Federal rules restrict any use of the information to criminally investigate or prosecute any alcohol or drug abuse patient.[facility] CenterIn the event this information is protected by the Federal Confidentiality of Alcohol and Drug Abuse Patient Records regulations: The Federal rules restrict any use of the information to criminally investigate or prosecute any alcohol or drug abuse patient.[facility] CenterIn the event this information is protected by the Federal Confidentiality of Alcohol and Drug Abuse Patient Records regulations: The Federal rules restrict any use of the information to criminally investigate or prosecute any alcohol or drug abuse patient.[facility] CenterIn the event this information is protected by the Federal Confidentiality of Alcohol and Drug Abuse Patient Records regulations: The Federal rules restrict any use of the information to criminally investigate or prosecute any alcohol or drug abuse patient.[facility] CenterIn the event this information is protected by the Federal Confidentiality of Alcohol and Drug Abuse Patient Records regulations: The Federal rules restrict any use of the information to criminally investigate or prosecute any alcohol or drug abuse patient.[facility] the event this information is protected by the Federal Confidentiality of Alcohol and Drug Abuse Patient Records regulations: The Federal rules restrict any use of the information to criminally investigate or prosecute any alcohol or drug abuse patient.[facility] CenterIn the event this information is protected by the Federal Confidentiality of Alcohol and Drug Abuse Patient Records regulations: The Federal rules restrict any use of the information to criminally investigate or prosecute any alcohol or drug abuse patient.[facility] CenterIn the event this information is protected by the Federal Confidentiality of Alcohol and Drug Abuse Patient Records regulations: The Federal rules restrict any use of the information to criminally investigate or prosecute any alcohol or drug abuse patient.[facility] CenterIn the event this information is protected by the Federal Confidentiality of Alcohol and Drug Abuse Patient Records regulations: The Federal rules restrict any use of the information to criminally investigate or prosecute any alcohol or drug abuse patient.[facility] CenterIn the event this information is protected by the Federal Confidentiality of Alcohol and Drug Abuse Patient Records regulations: The Federal rules restrict any use of the information to criminally investigate or prosecute any alcohol or drug abuse patient.[facility] CenterIn the event this information is protected by the Federal Confidentiality of Alcohol and Drug Abuse Patient Records regulations: The Federal rules restrict any use of the information to criminally investigate or prosecute any alcohol or drug abuse patient.[facility] CenterIn the event this information is protected by the Federal Confidentiality of Alcohol and Drug Abuse Patient Records regulations: The Federal rules restrict any use of the information to criminally investigate or prosecute any alcohol or drug abuse patient.[facility] CenterIn the event this information is protected by the Federal Confidentiality of Alcohol and Drug Abuse Patient Records regulations: The Federal rules restrict any use of the information to criminally investigate or prosecute any alcohol or drug abuse patient.[facility] CenterIn the event this information is protected by the Federal Confidentiality of Alcohol and Drug Abuse Patient Records regulations: The Federal rules restrict any use of the information to criminally investigate or prosecute any alcohol or drug abuse patient.[facility] CenterIn the event this information is protected by the Federal Confidentiality of Alcohol and Drug Abuse Patient Records regulations: The Federal rules restrict any use of the information to criminally investigate or prosecute any alcohol or drug abuse patient.[facility] CenterIn the event this information is protected by the Federal Confidentiality of Alcohol and Drug Abuse Patient Records regulations: The Federal rules restrict any use of the information to criminally investigate or prosecute any alcohol or drug abuse patient.[facility] CenterIn the event this information is protected by the Federal Confidentiality of Alcohol and Drug Abuse Patient Records regulations: The Federal rules restrict any use of the information to criminally investigate or prosecute any alcohol or drug abuse patient.[facility] CenterIn the event this information is protected by the Federal Confidentiality of Alcohol and Drug Abuse Patient Records regulations: The Federal rules restrict any use of the information to criminally investigate or prosecute any alcohol or drug abuse patient.[facility] CenterIn the event this information is protected by the Federal Confidentiality of Alcohol and Drug Abuse Patient Records regulations: The Federal rules restrict any use of the information to criminally investigate or prosecute any alcohol or drug abuse patient.[facility] Reason for Visit (unrecogniz ed section and content) Reason Comments Follow Up Specialty Diagnoses / Procedures Referred By Rasta cash Referred To Contact Psychiatry / ADULT PSYCHIATRY Diagnoses 3 month follow up Procedures VIDEO PSYC/PSYL EST Dyan Corey, SECUR[employer]PER[employer] ANALYST.[employer] [address] [place] [address] Dyan Corey, SECUR[employer] OPER[employer] C[employer] ANALYST.[employer]PER[employer] [address] [place] [address] Referral ID Status Reason Start Date Expiration Date V isits Requested Visits Authorized [id number] New Request 03/29/2024 06/27/2024 1 1 Reason Comments Establish Care Medication Problem wants to stop prozac Derm Problem advised may not be a ble to address today Reason Comments Establish Care Reason Comments Yearly Exam Reason Comments Recheck 6 week follow up Reason Comments error Reason Comments Recheck 6 week follow up Reason Comments Results Reason Comments Psychiatric Problem Increased depression and suicidal thoughts Reason Comments Recheck 4 week follow up Reason Comments Orders Reason Comments Recheck 1 month follow up Reason Comments Patient Update Reason Comments Psychiatric Problem Reason Comments Sore Throat Reason Comments Earache Reason Comments Acute Visit Bilateral ear pressu re, R ear greater than L ear; vomited twice this morning; temp 99.4 this am Reason Onset Date Comments Refill Request 06/08/2022 Reason Comments Insurance Authorization [employer] Reason Comments Vaginal Discharge Reason Comments Acute Visit vaginal discharge Reason Comments Follow Up 2 week follow up Reason Comments Recheck CTS flare up R wrist x 1 month- using ice, splinting and taking Aleve; R hand dominant Reason Comments Referral Request Reason Comments New Patient Evaluation Specialty Diagnoses / Procedures Referred By Contjacques t Referred To Contact Psychiatry / ADULT PSYCHIATRY Diagnoses NEW PATIENT - per phone encounter from Hilda Lazo LPN to add into this time.date. Procedures VIDEO PSYC/PSYL Светлана Thompson, SECUR[employer]PER[employer] ANALYST.[employer] SUPERVISOR [address] [place] [address] Dyan Corey, SECUR[employer] ANALYST.[employer] SUPER[employer]OR [address] [place] [address] Referral ID Status Reason Start Date Expiration Date V isits Requested Visits Authorized [id number] Pending Review 02/12/2023 05/13/2023 1 1 Reason Comments Acute Visit R sided facial/sinus pain; no fever; sore throat started today Reason Comments Acute Visit Lower R back pain, b lood in urine, vomiting Reason Comments Radiology US Specialty Diagnoses / Procedures Referred By Contac t Referred To Contact US IMAGING Diagnoses Low back pain, unspecified back pain laterality, unspecified chronicity, unspecified whether sciatica present Procedures US KIDNEY/BLADDER US RETROPERITONEAL REAL TIME W/IMAGE COMPLETE Светлана Srinivasan, SEC[employer] ANALYST.[employer] SUPERVISOR [address] [place] [address] [place] [address] Referral ID Status Reason Start Date Expiration Date V isits Requested Visits Authorized [id number] Closed Auto-Generate d Referral 06/16/2023 07/15/2024 1 1 Reason Comments Follow Up Carpal tunnel Itching Left hand Ear Problem Gets hot and red to the outer ears Reason Comments Appointment Reason Onset Date Comments Refill Request 12/12/2023 Reason Comments Acute Visit GI issues x2-3 weeks ; constipation, nausea, not sleeping well, abd pain; diarrhea 1x feels d/t colace Reason Onset Date Comments Refill Request 03/10/2024 Reason Comments Clinical Update Reason Comments Nausea & Vomiting Reason Comments Early OB N/V Reason Comments Opened In Error Reason Comments Vomiting Reason Comments Initial OB Visit Reason Onset Date Comments Refill Request 05/12/2024 Reason Onset Date Comments Refill Request 06/07/2024 Reason Comments Follow Up Mood disorder/Depres alyssa/Anxiety Specialty Diagnoses / Procedures Referred By Rasta cash Referred To Contact Psychiatry / ADULT PSYCHIATRY Diagnoses 4 week visit medication check Procedures EST PSYC ADULT Dyan Corey, SECURITY OPERATIONS CENTER ANALYST.PATTERN MARKING SUPERVISOR [address] [place] [address] Dyan Corey, SECURITY OPERATIONS CENTER ANALYST.PATTERN MARKING SUPERVISOR [address] [place] [address] Referral ID Status Reason Start Date Expiration Date V isits Requested Visits Authorized [id number] New Request 06/01/2024 08/30/2024 1 1 Reason Comments US Specialty Diagnoses / Procedures Referred By Rasta cash Referred To Contact [facility] Diagnoses Encounter for supervision of normal first in first trimester with uncertain dates, antepartum Procedures NUCHAL TRANSLUCENCY WHI US NUCHAL TRANSLUCENCY 1ST GESTATION Emilee Rose, JOSE.[place] [address] [address] Referral ID Status Reason Start Date Expiration Date V isits Requested Visits Authorized [id number] Closed Auto-Generate d Referral 05/12/2024 05/12/2025 1 1 Reason Onset Date Comments Care 06/09/2024 Reason Comments Orders Appointment Reason Comments Acute Visit cold Reason Onset Date Comments Care 06/22/2024 Reason Comments FMLA Paperwork Reason Onset Date Comments Refill Request 06/23/2024 Reason Comments Behavioral Health Appointment Specialty Diagnoses / Procedures Referred By Contac t Referred To Contact [facility] Diagnoses Obesity in Supervision of high risk in first trimester Procedures OBSTETRIC ULTRASOUND WHI US PREG UTERUS AFTER 1ST TRIMEST GESTATION Emilee Rose, SECURITY OPERATIONS CENTER ANALYST.CN [address] [place] [address] Phone: tel: fax: [address] [address] Referral ID Status Reason Start Date Expiration Date V isits Requested Visits Authorized [id number] Closed Auto-Generate d Referral 06/15/2024 06/15/2025 1 1 Reason Onset Date Comments Care 07/07/2024 Reason Onset Date Comments Refill Request 07/10/2024 Reason Onset Date Comments Refill Request 07/28/2024 Reason Comments Follow Up Specialty Diagnoses / Procedures Referred By Contac t Referred To Contact Psychiatry / ADULT PSYCHIATRY Diagnoses 2 month follow up Procedures EST PS ADULT Dyan Corey, SECURITY OPERATIONS CENTER ANALYST.PATTERN MARKING SUPERVISOR [address] [place] [address] Phone: tel: fax: Dyan Corey, SECURITY OPERATIONS CENTER ANALYST.PATTERN MARKING SUPERVISOR [address] [place] [address] Phone: tel: fax: Referral ID Status Reason Start Date Expiration Date V isits Requested Visits Authorized [id number] New Request 07/27/2024 10/25/2024 1 1 Reason Onset Date Comments Care 08/04/2024 Specialty Diagnoses / Procedures Referred By Rasta t Referred To Contact [facility] Diagnoses Encounter for supervision of normal first in first trimester (HCC) with uncertain dates, antepartum (HCC) Procedures OBSTETRIC ULTRASOUND WHI US PREG UTERUS AFTER 1ST TRIMEST GESTATION Emilee Rose APRN.CNM [address] [place] [address] Phone: tel: fax: [facility] [address] [place] [address] Referral ID Status Reason Start Date Expiration Date V isits Requested Visits Authorized [id number] Closed Auto-Generate d Referral 05/12/2024 05/12/2025 1 1 Reason Onset Date Comments Refill Request 08/11/2024 Reason Onset Date Comments Care 09/01/2024 Specialty Diagnoses / Procedures Referred By Rasta t Referred To Contact Psychiatry / ADULT PSYCHIATRY Diagnoses PROVIDER ORDER FOLLOW UP Procedures VIDEO PSYC/PSYL EST Dyan Corey, SECURITY OPERATIONS CENTER ANALYST.PATTERN MARKING SUPERVISOR [address] [place] [address] Phone: tel: fax: Dyan Corey, SECURITY OPERATIONS CENTER ANALYST.PATTERN MARKING SUPERVISOR [address] [place] [address] Phone: tel: fax: Referral ID Status Reason Start Date Expiration Date V isits Requested Visits Authorized [id number] New Request 09/07/2024 12/06/2024 1 1 Reason Onset Date Comments Care 09/28/2024 Reason Onset Date Comments Refill Request 10/06/2024 Reason Onset Date Comments Care 10/13/2024 Specialty Diagnoses / Procedures Referred By Contjacques t Referred To Contact [facility] Diagnoses Supervision of high risk in third trimester (HCC) Obesity affecting in third trimester, unspecified obesity type (HCC) Procedures OBSTETRIC ULTRASOUND WHI US PREG UTERUS AFTER 1ST TRIMEST GESTATION Emilee Rose APRN.CNM [address] [place] [address] Phone: tel: fax: [facility] [address] [place] [address] Referral ID Status Reason Start Date Expiration Date V isits Requested Visits Authorized [id number] Closed Auto-Generate d Referral 09/01/2024 09/01/2025 3 1 Reason Onset Date Comments Care 11/02/2024 Reason Comments Refill Request Reason Onset Date Comments Refill Request 11/13/2024 Reason Onset Date Comments Care 11/17/2024 Reason Onset Date Comments Care 11/25/2024 Reason Onset Date Comments Care 11/30/2024 Reason Onset Date Comments Population Health Navigation Outreach 12/02/2024 to PCP/OB Care Teams (unrecognized sec tion and content) Printed Circuit Board Preassembler Relationship Specialty Start Date End Date Светлана Srinivasan, SECURITY OPERATIONS CENTER ANALYST.PATTERN MARKING SUPERVISOR [address] [place] [address] PCP - General Family Practice 09/26/21 Printed Circuit Board Preassembler Relationship Specialty Start Date End Date Светлана Srinivasan, SECURITY OPERATIONS CENTER ANALYST.PATTERN MARKING SUPERVISOR [address] [place] [address] PCP - General Family Practice 09/26/21 Printed Circuit Board Preassembler Relationship Specialty Start Date End Date Светлана Srinivasan, SECURITY OPERATIONS CENTER ANALYST.PATTERN MARKING SUPERVISOR [address] [place] [address] PCP - General Family Practice 09/26/21 Printed Circuit Board Preassembler Relationship Specialty Start Date End Date Светлана Srinivasan, SECURITY OPERATIONS CENTER ANALYST.PATTERN MARKING SUPERVISOR [address] [place] [address] PCP - General Family Practice 09/26/21 Printed Circuit Board Preassembler Relationship Specialty Start Date End Date Светлана Srinivasan, SECURITY OPERATIONS CENTER ANALYST.PATTERN MARKING SUPERVISOR [address] [place] [address] PCP - General Family Practice 09/26/21 Printed Circuit Board Preassembler Relationship Specialty Start Date End Date Светлана Srinivasan, SECURITY OPERATIONS CENTER ANALYST.PATTERN MARKING SUPERVISOR [address] [place] [address] PCP - General Family Practice 09/26/21 Printed Circuit Board Preassembler Relationship Specialty Start Date End Date Светлана Srinivasan, SECURITY OPERATIONS CENTER ANALYST.PATTERN MARKING SUPERVISOR [address] [place] [address] PCP - General Family Medicine 09/26/21 Printed Circuit Board Preassembler Relationship Specialty Start Date End Date Светлана Srinivasan, SECURITY OPERATIONS CENTER ANALYST.PATTERN MARKING SUPERVISOR [address] [place] [address] PCP - General Family Medicine 09/26/21 Printed Circuit Board Preassembler Relationship Specialty Start Date End Date Светлана Srinivasan, SECURITY OPERATIONS CENTER ANALYST.PATTERN MARKING SUPERVISOR [address] [place] [address] PCP - General Family Medicine 09/26/21 Printed Circuit Board Preassembler Relationship Specialty Start Date End Date Светлана Srinivasan, SECURITY OPERATIONS CENTER ANALYST.PATTERN MARKING SUPERVISOR [address] [place] [address] PCP - General Family Medicine 09/26/21 Printed Circuit Board Preassembler Relationship Specialty Start Date End Date Светлана Srinivasan, SECURITY OPERATIONS CENTER ANALYST.PATTERN MARKING SUPERVISOR [address] [place] [address] PCP - General Family Medicine 09/26/21 Printed Circuit Board Preassembler Relationship Specialty Start Date End Date Светлана Srinivasan, SECURITY OPERATIONS CENTER ANALYST.PATTERN MARKING SUPERVISOR [address] [place] [address] PCP - General Family Medicine 09/26/21 Printed Circuit Board Preassembler Relationship Specialty Start Date End Date Светлана Srinivasan, SECURITY OPERATIONS CENTER ANALYST.PATTERN MARKING SUPERVISOR [address] [place] [address] PCP - General Family Medicine 09/26/21 Printed Circuit Board Preassembler Relationship Specialty Start Date End Date Светлана Srinivasan, SECURITY OPERATIONS CENTER ANALYST.PATTERN MARKING SUPERVISOR [address] [place] [address] PCP - General Family Medicine 09/26/21 Printed Circuit Board Preassembler Relationship Specialty Start Date End Date Светлана Srinivasan, SECURITY OPERATIONS CENTER ANALYST.PATTERN MARKING SUPERVISOR [address] [place] [address] PCP - General Family Medicine 09/26/21 Printed Circuit Board Preassembler Relationship Specialty Start Date End Date Светлана Srinivasan, SECURITY OPERATIONS CENTER ANALYST.PATTERN MARKING SUPERVISOR [address] [place] [address] PCP - General Family Medicine 09/26/21 Printed Circuit Board Preassembler Relationship Specialty Start Date End Date Светлана Srinivasan, SECURITY OPERATIONS CENTER ANALYST.PATTERN MARKING SUPERVISOR [address] [place] [address] PCP - General Family Medicine 09/26/21 Printed Circuit Board Preassembler Relationship Specialty Start Date End Date Светлана Srinivasan, SECURITY OPERATIONS CENTER ANALYST.PATTERN MARKING SUPERVISOR [address] [place] [address] PCP - General Family Medicine 09/26/21 Printed Circuit Board Preassembler Relationship Specialty Start Date End Date Светлана Srinivasan, SECURITY OPERATIONS CENTER ANALYST.PATTERN MARKING SUPERVISOR [address] [place] [address] PCP - General Family Medicine 09/26/21 Printed Circuit Board Preassembler Relationship Specialty Start Date End Date Светлана Srinivasan, SECURITY OPERATIONS CENTER ANALYST.PATTERN MARKING SUPERVISOR [address] [place] [address] PCP - General Family Medicine 09/26/21 Printed Circuit Board Preassembler Relationship Specialty Start Date End Date Светлана Srniivasan, SECURITY OPERATIONS CENTER ANALYST.PATTERN MARKING SUPERVISOR [address] [place] [address] PCP - General Family Medicine 09/26/21 Printed Circuit Board Preassembler Relationship Specialty Start Date End Date Светлана Srinivasan, SECURITY OPERATIONS CENTER ANALYST.PATTERN MARKING SUPERVISOR [address] [place] [address] PCP - General Family Medicine 09/26/21 Printed Circuit Board Preassembler Relationship Specialty Start Date End Date Светлана Srinivasan, SECURITY OPERATIONS CENTER ANALYST.PATTERN MARKING SUPERVISOR [address] [facility] [place] [place] [address] PCP - General Family Medicine 09/26/21 Printed Circuit Board Preassembler Relationship Specialty Start Date End Date Светлана Srinivasan, SECURITY OPERATIONS CENTER ANALYST.PATTERN MARKING SUPERVISOR [address] [place] [address] PCP - General Family Medicine 09/26/21 Printed Circuit Board Preassembler Relationship Specialty Start Date End Date Светлана Srinivasan, SECURITY OPERATIONS CENTER ANALYST.PATTERN MARKING SUPERVISOR [address] [place] [address] PCP - General Family Medicine 09/26/21 Printed Circuit Board Preassembler Relationship Specialty Start Date End Date Светлана Srinivasan, SECURITY OPERATIONS CENTER ANALYST.PATTERN MARKING SUPERVISOR [address] [place] [address] PCP - General Family Medicine 09/26/21 Printed Circuit Board Preassembler Relationship Specialty Start Date End Date Светлана Srinivasan, SECURITY OPERATIONS CENTER ANALYST.PATTERN MARKING SUPERVISOR [address] [place] [address] PCP - General Family Medicine 09/26/21 Printed Circuit Board Preassembler Relationship Specialty Start Date End Date Светлана Srinivasan, SECURITY OPERATIONS CENTER ANALYST.PATTERN MARKING SUPERVISOR [address] [place] [address] PCP - General Family Medicine 09/26/21 Printed Circuit Board Preassembler Relationship Specialty Start Date End Date Светлана Srinivasan, SECURITY OPERATIONS CENTER ANALYST.PATTERN MARKING SUPERVISOR [address] [place] [address] PCP - General Family Medicine 09/26/21 Printed Circuit Board Preassembler Relationship Specialty Start Date End Date Светлана Srinivasan, SECURITY OPERATIONS CENTER ANALYST.PATTERN MARKING SUPERVISOR [address] [place] [address] PCP - General Family Medicine 09/26/21 Printed Circuit Board Preassembler Relationship Specialty Start Date End Date Светлана Srinivasan, SECURITY OPERATIONS CENTER ANALYST.PATTERN MARKING SUPERVISOR [address] [place] [address] PCP - General Family Medicine 09/26/21 Printed Circuit Board Preassembler Relationship Specialty Start Date End Date Светлана Srinivasan, SECURITY OPERATIONS CENTER ANALYST.PATTERN MARKING SUPERVISOR [address] [place] [address] PCP - General Family Medicine 09/26/21 Printed Circuit Board Preassembler Relationship Specialty Start Date End Date Светлана Srinivasan, SECURITY OPERATIONS CENTER ANALYST.PATTERN MARKING SUPERVISOR [address] [place] [address] PCP - General Family Medicine 09/26/21 Printed Circuit Board Preassembler Relationship Specialty Start Date End Date Светлана Srinivasan, SECURITY OPERATIONS CENTER ANALYST.PATTERN MARKING SUPERVISOR [address] [place] [address] PCP - General Family Medicine 09/26/21 Printed Circuit Board Preassembler Relationship Specialty Start Date End Date Светлана Srinivasan, SECURITY OPERATIONS CENTER ANALYST.PATTERN MARKING SUPERVISOR [address] [place] [address] PCP - General Family Medicine 09/26/21 Printed Circuit Board Preassembler Relationship Specialty Start Date End Date Светлана Srinivasan, SECURITY OPERATIONS CENTER ANALYST.PATTERN MARKING SUPERVISOR [address] [place] [address] PCP - General Family Medicine 09/26/21 Printed Circuit Board Preassembler Relationship Specialty Start Date End Date Светлана Srinivasan, SECURITY OPERATIONS CENTER ANALYST.PATTERN MARKING SUPERVISOR [address] [place] [address] PCP - General Family Medicine 09/26/21 Printed Circuit Board Preassembler Relationship Specialty Start Date End Date Светлана Srinivasan, SECURITY OPERATIONS CENTER ANALYST.PATTERN MARKING SUPERVISOR [address] [place] [address] PCP - General Family Medicine 09/26/21 Printed Circuit Board Preassembler Relationship Specialty Start Date End Date Светлана Srinivasan APRN.PATTERN MARKING SUPERVISOR [address] [place] [address] PCP - General Family Medicine 09/26/21 Juliette Tan SECURITY OPERATIONS CENTER ANALYST.PATTERN MARKING SUPERVISOR [address] [place] [address] Plastics Spreading Machine Operator Family Medicine 04/11/24 Matt Rao MD [address] [place] [address] Plastics Spreading Machine Operator Family Medicine 04/11/24 Printed Circuit Board Preassembler Relationship Specialty Start Date End Date Светлана Srinivasan, SECURITY OPERATIONS CENTER ANALYST.PATTERN MARKING SUPERVISOR [address] [place] [address] PCP - General Family Medicine 09/26/21 Matt Rao MD [address] [place] [address] Plastics Spreading Machine Operator Family Medicine 04/11/24 Printed Circuit Board Preassembler Relationship Specialty Start Date End Date Светлана Srinivasan APRN.PATTERN MARKING SUPERVISOR [address] [place] [address] PCP - General Family Medicine 09/26/21 Juliette Tan SECURITY OPERATIONS CENTER ANALYST.PATTERN MARKING SUPERVISOR [address] [place] [address] Plastics Spreading Machine Operator Family Medicine 04/11/24 Matt Rao MD [address] [place] [address] Plastics Spreading Machine Operator Family Medicine 04/11/24 Printed Circuit Board Preassembler Relationship Specialty Start Date End Date Светлана Srinivasan, JOSE.PATTERN MARKING SUPERVISOR [address] [place] [address] PCP - General Family Medicine 09/26/21 Juliette Tan SECURITY OPERATIONS CENTER ANALYST.PATTERN MARKING SUPERVISOR [address] [facility] [address] Plastics Spreading Machine Operator Family Medicine 04/11/24 Matt Rao MD [address] [facility] [place] [address] Plastics Spreading Machine [facility] 04/11/24 Printed Circuit Board Preassembler Relationship Specialty Start Date End Date Светлана Srinivasan APRN.PATTERN MARKING SUPERVISOR [address] [facility] [place] [address] PCP - General Family Medicine 09/26/21 Juliette Tan SECURITY OPERATIONS CENTER ANALYST.PATTERN MARKING SUPERVISOR [address] [facility] [place] [address] Plastics Spreading Machine Operator Family Medicine 04/11/24 Matt Rao MD [address] [facility] [place] [address] Plastics Spreading Machine Operator Family Medicine 04/11/24 Printed Circuit Board Preassembler Relationship Specialty Start Date End Date Светлана Srinivasan, SECURITY OPERATIONS CENTER ANALYST.PATTERN MARKING SUPERVISOR [address] [place] [address] PCP - General Family Medicine 09/26/21 Juliette Tan SECURITY OPERATIONS CENTER ANALYST.PATTERN MARKING SUPERVISOR [address] [facility] [facility] [place] [address] Plastics Spreading Machine [facility] 04/11/24 Matt Rao MD [address] [place] [address] [facility] 04/11/24 Printed Circuit Board Preassembler Relationship Specialty Start Date End Date Светлана Srinivasan, SECURITY OPERATIONS CENTER ANALYST.PATTERN MARKING SUPERVISOR [address] [place] [address] PCP - General Family Medicine 09/26/21 Juliette Tan SECURITY OPERATIONS CENTER ANALYST.PATTERN MARKING SUPERVISOR [address] [place] [address] [facility] 04/11/24 Matt Rao MD [address] [place] [address] [facility] 04/11/24 Printed Circuit Board Preassembler Relationship Specialty Start Date End Date Светлана Srinivasan, SECURITY OPERATIONS CENTER ANALYST.PATTERN MARKING SUPERVISOR [address] [place] [address] PCP - General Family Medicine 09/26/21 Juliette Tan SECURITY OPERATIONS CENTER ANALYST.PATTERN MARKING SUPERVISOR [address] [place] [address] [facility] Medicine 04/11/24 Matt Rao MD [address] [place] [address] [facility] Medicine 04/11/24 Printed Circuit Board Preassembler Relationship Specialty Start Date End Date Светлана Srinivasan, SECURITY OPERATIONS CENTER ANALYST.PATTERN MARKING SUPERVISOR [address] [place] [address] PCP - General Family Medicine 09/26/21 Juliette Tan SECURITY OPERATIONS CENTER ANALYST.PATTERN MARKING SUPERVISOR [address] [facility] [facility] [place] [address] Plastics Spreading Machine Operator Family Medicine 04/11/24 Matt Rao MD [address] [facility] [place] [address] Plastics Spreading Machine Operator Family Medicine 04/11/24 Printed Circuit Board Preassembler Relationship Specialty Start Date End Date Светлана Srinivasan APRN.PATTERN MARKING SUPERVISOR [address] [place] [address] PCP - General Family Medicine 09/26/21 Juliette Tan SECURITY OPERATIONS CENTER ANALYST.PATTERN MARKING SUPERVISOR [address] [place] [address] Plastics Spreading Machine Operator Family Medicine 04/11/24 Matt Rao MD [address] [place] [address] Plastics Spreading Machine Operator Family Medicine 04/11/24 Printed Circuit Board Preassembler Relationship Specialty Start Date End Date Светлана Srinivasan APRN.PATTERN MARKING SUPERVISOR [address] [place] [address] PCP - General Family Medicine 09/26/21 Juliette Tan SECURITY OPERATIONS CENTER ANALYST.PATTERN MARKING SUPERVISOR [address] [place] [address] Plastics Spreading Machine Operator Family Medicine 04/11/24 Matt Rao MD [address] [place] [address] Plastics Spreading Machine Operator Family Medicine 04/11/24 Printed Circuit Board Preassembler Relationship Specialty Start Date End Date Светлана Srinivasan APRN.PATTERN MARKING SUPERVISOR [address] [place] [address] PCP - General Family Medicine 09/26/21 Juliette Tan APRN.PATTERN MARKING SUPERVISOR [address] [place] [address] Plastics Spreading Machine Operator Family Medicine 04/11/24 Matt Rao MD [address] [facility] [address] Plastics Spreading Machine Operator Family Medicine 04/11/24 Printed Circuit Board Preassembler Relationship Specialty Start Date End Date Светлана Srinivasan APRN.PATTERN MARKING SUPERVISOR [address] [facility] [place] [address] PCP - General Family Medicine 09/26/21 Juliette Tan SECURITY OPERATIONS CENTER ANALYST.PATTERN MARKING SUPERVISOR [address] [place] [address] Plastics Spreading Machine Operator Family Medicine 04/11/24 Matt Rao MD [address] [place] [address] Plastics Spreading Machine Operator Family Medicine 04/11/24 Printed Circuit Board Preassembler Relationship Specialty Start Date End Date Светлана Srinivasan SECURITY OPERATIONS CENTER ANALYST.PATTERN MARKING SUPERVISOR [address] [place] [address] PCP - General Family Medicine 09/26/21 Juliette Tan SECURITY OPERATIONS CENTER ANALYST.PATTERN MARKING SUPERVISOR [address] [facility] [place] [address] Plastics Spreading Machine Operator Family Medicine 04/11/24 Matt Rao MD [address] [place] [address] Plastics Spreading Machine Operator Family Medicine 04/11/24 Printed Circuit Board Preassembler Relationship Specialty Start Date End Date Светлана Srinivasan APRN.PATTERN MARKING SUPERVISOR [address] [place] [address] PCP - General Family Medicine 09/26/21 Juliette Tan SECURITY OPERATIONS CENTER ANALYST.PATTERN MARKING SUPERVISOR [address] [facility] [facility] [place] [address] Plastics Spreading Machine Operator Family Medicine 04/11/24 Matt Rao MD [address] [place] [address] Plastics Spreading Machine Operator Family Medicine 04/11/24 Printed Circuit Board Preassembler Relationship Specialty Start Date End Date Светлана Srinivasan APRN.PATTERN MARKING SUPERVISOR [address] [facility] [place] [address] PCP - General Family Medicine 09/26/21 Juliette Tan SECURITY OPERATIONS CENTER ANALYST.PATTERN MARKING SUPERVISOR [address] [facility] [place] [address] Plastics Spreading Machine Operator Family Medicine 04/11/24 Matt Rao MD [address] [place] [address] Plastics Spreading Machine Operator Family Medicine 04/11/24 Printed Circuit Board Preassembler Relationship Specialty Start Date End Date Светлана Srinivasan, SECURITY OPERATIONS CENTER ANALYST.PATTERN MARKING SUPERVISOR [address] [facility] [place] [address] PCP - General Family Medicine 09/26/21 Juliette Tan SECURITY OPERATIONS CENTER ANALYST.PATTERN MARKING SUPERVISOR [address] [facility] [place] [address] Plastics Spreading Machine Operator Family Medicine 04/11/24 Matt Rao MD [address] [place], [place] [address] Plastics Spreading Machine Operator Family Medicine 04/11/24 Printed Circuit Board Preassembler Relationship Specialty Start Date End Date Светлана Srinivasan, SECURITY OPERATIONS CENTER ANALYST.PATTERN MARKING SUPERVISOR [address] [place], [place] [address] [phone] PCP - General Family Medicine 09/26/21 Juliette Tan SECURITY OPERATIONS CENTER ANALYST.PATTERN MARKING SUPERVISOR [address] [place], [place] [address] [phone] Plastics Spreading Machine Operator Family Medicine 04/11/24 Matt Rao MD [address] [place], [place] [address] Plastics Spreading Machine [facility] 04/11/24 Printed Circuit Board Preassembler Relationship Specialty Start Date End Date Светлана Srinivasan, SECURITY OPERATIONS CENTER ANALYST.PATTERN MARKING SUPERVISOR [address] [place] [address] PCP - General Family Medicine 09/26/21 Printed Circuit Board Preassembler Relationship Specialty Start Date End Date Светлана Srinivasan, [employer] [facility] ANALYST.PATTERN MARKING SUPERVISOR [address] [place] [address] PCP - General Family Medicine 09/26/21 Printed Circuit Board Preassembler Relationship Specialty Start Date End Date Светлана Srinivasan, [employer] [facility] ANALYST.PATTERN MARKING SUPERVISOR [address] [place], [place] [address] [phone] PCP - General Family Medicine 09/26/21 Printed Circuit Board Preassembler Relationship Specialty Start Date End Date Светлана Srinivasan, [employer] [facility] ANALYST.PATTERN MARKING SUPERVISOR [address] [place], [place] [address] [phone] PCP - General Family Medicine 09/26/21 Printed Circuit Board Preassembler Relationship Specialty Start Date End Date Светлана Srinivasan, [employer] [facility] ANALYST.PATTERN MARKING SUPERVISOR [address] [place] [address] PCP - General Family Medicine 09/26/21 Printed Circuit Board Preassembler Relationship Specialty Start Date End Date Светлана Srinivasan APRN.PATTERN MARKING SUPERVISOR [address] [place] [address] PCP - General Family Medicine 09/26/21 Juliette Tan APRN.PATTERN MARKING SUPERVISOR [address] [place] [address] Plastics Spreading Machine Operator Family Medicine 04/11/24 07/26/24 Matt Rao MD [address] [place] [address] Plastics Spreading Machine Operator Family Medicine 04/11/24 07/26/24 Printed Circuit Board Preassembler Relationship Specialty Start Date End Date Светлана Srinivasan APRN.PATTERN MARKING SUPERVISOR [address] [place] [address] PCP - General Family Medicine 09/26/21 Printed Circuit Board Preassembler Relationship Specialty Start Date End Date Светлана Srinivasan APRN.PATTERN MARKING SUPERVISOR [address] [place] [address] PCP - General Family Medicine 09/26/21 Printed Circuit Board Preassembler Relationship Specialty Start Date End Date Светлана Srinivasan APRN.PATTERN MARKING SUPERVISOR [address] [place] [address] PCP - General Family Medicine 09/26/21 Juliette Tan [employer] [facility] ANALYST.PATTERN MARKING SUPERVISOR [address] [place] [address] Plastics Spreading Machine Operator Family Medicine 04/11/24 07/26/24 Matt Rao MD [address] [place] [address] Plastics Spreading Machine Operator Family Medicine 04/11/24 07/26/24 Printed Circuit Board Preassembler Relationship Specialty Start Date End Date Светлана Srinivasan, [employer] [facility] ANALYST.PATTERN MARKING SUPERVISOR [address] [place] [address] PCP - General Family Medicine 09/26/21 Printed Circuit Board Preassembler Relationship Specialty Start Date End Date Светлана Srinivasan, [employer] [facility] ANALYST.PATTERN MARKING SUPERVISOR [address] [place] [address] PCP - General Family Medicine 09/26/21 Printed Circuit Board Preassembler Relationship Specialty Start Date End Date Светлана Srinivasan, [employer] [facility] ANALYST.PATTERN MARKING SUPERVISOR [address] [place] [address] PCP - General Family Medicine 09/26/21 Printed Circuit Board Preassembler Relationship Specialty Start Date End Date Светлана Srinivasan, [employer] [facility] ANALYST.PATTERN MARKING SUPERVISOR [address] [place] [address] PCP - General Family Medicine 09/26/21 Printed Circuit Board Preassembler Relationship Specialty Start Date End Date Светлана Srinivasan, [employer] [facility] ANALYST.PATTERN MARKING SUPERVISOR [address] [place] [address] PCP - General Family Medicine 09/26/21 Printed Circuit Board Preassembler Relationship Specialty Start Date End Date Светлана Srinivasan, [employer] [facility] ANALYST.PATTERN MARKING SUPERVISOR [address] [place] [address] PCP - General Family Medicine 09/26/21 Printed Circuit Board Preassembler Relationship Specialty Start Date End Date Светлана Srinivasan, [employer] [facility] ANALYST.PATTERN MARKING SUPERVISOR [address] [facility], [place] [address] PCP - General Family Medicine 09/26/21 Printed Circuit Board Preassembler Relationship Specialty Start Date End Date Светлана Srinivasan, [employer] [facility] ANALYST.PATTERN MARKING SUPERVISOR [address] [facility], [place] [address] PCP - General Family Medicine 09/26/21 Printed Circuit Board Preassembler Relationship Specialty Start Date End Date Светлана Srinivasan, [employer] [facility] ANALYST.PATTERN MARKING SUPERVISOR [address] [facility], [place] [address] PCP - General Family Medicine 09/26/21 Printed Circuit Board Preassembler Relationship Specialty Start Date End Date Светлана Srinivasan, [employer] [facility] ANALYST.PATTERN MARKING SUPERVISOR [address] [facility], [place] [address] PCP - General Family Medicine 09/26/21 FOR RECORDS PERTAINING TO PATIENTS WHO ARE OR HAVE BEEN ENROLLED IN A CHEMICAL DEPENDENCY/SUBSTANCEABUSE PROGRAM, SOME INFORMATION MAY BE OMITTED. This clinical summary was aggregated from multiple sources. Caution should be exercised in using it in the provision of clinical care. This summary normalizes information from multiple sources, and as a consequence, information in this document may materially change the coding, format and clinical context of patient data. In addition, data may be omitted in some cases. CLINICAL DECISIONS SHOULD BE BASED ON THE PRIMARY CLINICAL RECORDS. [facility]. provides no warranty or guarantee of the accuracy or completeness of information in this document.
--- OUTSIDE RECORDS SUMMARY | 2024-12-09 06:31 | XMS RPT_ITS | CCD ---
Author Organization [facility] Care Team Providers Care Border Measurer Name Role Phone Mahad Riley Unavailable Unavail able Unavailable Primary Care Provider Unavailabl e Haagen MUNICIPAL FIREFIGHTER.MULTI MEDIA SPECIALIST, Светлана Primary Care Provider Haagen MUNICIPAL FIREFIGHTER.MULTI MEDIA SPECIALIST, Светлана Primary Care Provider Haagen MUNICIPAL FIREFIGHTER.MULTI MEDIA SPECIALIST, Светлана Primary Care Provider Haagen MUNICIPAL FIREFIGHTER.MULTI MEDIA SPECIALIST, Светлана Primary Care Provider Haagen MUNICIPAL FIREFIGHTER.MULTI MEDIA SPECIALIST, Светлана Primary Care Provider Haagen MUNICIPAL FIREFIGHTER.MULTI MEDIA SPECIALIST, Светлана Primary Care Provider Suppan MUNICIPAL FIREFIGHTER.MULTI MEDIA SPECIALIST, Juliette A Unavailable [phone] Matt Rao MD Unavailable Suppan MUNICIPAL FIREFIGHTER.MULTI MEDIA SPECIALIST, Juliette A Unavailable [phone] Suppan MUNICIPAL FIREFIGHTER.DANICA, Juliette A Unavailable [phone] Matt Rao MD Unavailable Haagen HEATING AND VENTILATING DRAFTER, Светлана Primary Care Unavailable Emilee Rose Attending Unavailable Emilee Rose Admitting Unavailable Gael Salinas Attending Unavailable Haagen HEATING AND VENTILATING DRAFTER, Светлана Primary Care Unavailable Haagen HEATING AND VENTILATING DRAFTER, Светлана Primary Care Unavailable Stanislaw Webre Attending Unavailable HAAGEN, СВЕТЛАНА Primary Care Unavailable [...] Unavailable HAAGEN, СВЕТЛАНА Primary Care Unavailable ROSE, EMIELE Referring Unavailable VIDAL WILLIS Attending Unavailable HAAGEN, [...] Allergy to substance 1 Other: See Comments [facility] Work Phone: Medications Current Medications [...] on above: Take 1 capsule by mo [facility] twice daily for 10 days. Docusate (16 [...] as needed. Take 2 tablets by mo [facility] three times a day as needed. Loratadine [...] Drug Class(es) Dates Sig (Normalized) Sig (Original) [id number] 200 actuat albuterol 0.09 mg/actuat metered dose [...] Indications: Recurrent major depressive disorder, in remission ([facility]) Take 1 tablet by mouth once daily. [...] (Other) Start: 11-09-2021 take 2 capsules by [facility] once daily FLUoxetine (PROZAC) 10 mg capsule [...] Comment on above: Take 1 capsule by [facility] once daily. Take one capsule [...] 30 days, THEN 3 tablets once daily. 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] 03-29-2024 Episodic Other circulatory [...] of ; Translations: [30 weeks gestation of ([facility])] Onset: 5 Episodic Residual codes; unclassified (1 source) 28 weeks gestation of ; Translations: [28 weeks gestation of ([facility])] Onset: 5 Episodic Residual codes; unclassified (1 source) 24 weeks gestation of ; Translations: [24 weeks gestation of ([facility])] Onset: 5 Episodic Residual codes; unclassified (1 source) 25 weeks gestation of ; Translations: [25 weeks gestation of ([facility])] Onset: 5 Episodic Spondylosis; intervertebral disc disorders; [...] Unclassified (1 source) Rubella non-immune status, antepartum ([facility]); Translations: [Rubella non-immune status, antepartum ([facility])] Onset: 5 Unclassified (1 source) History of [...] 5 Glucose Ql (U) Negative Neg mg/dL [facility] Protein.monoclonal (U) [Mass/Vol] 100 mg/dL Neg [facility] URINE OB DIP B/Oon 5 Glucose Ql (U) Negative Neg mg/dL [facility] Interpretation and review of laboratory results Normal [facility] Protein.monoclonal (U) [Mass/Vol] Negative Neg mg/dL [facility] Examination level ultrasound on 11-18-2024 [facility] Examination level ultrasound on 11-17-2024 Radiology Study observation (narrative) [facility] ROUTINE, GROUP B ST REPTOCOCCUS BY PCRon 11-17-2024 ROUTINE, GROUP B STREPTOCOCCUS BY PCR Not detected Normal [facility] Comment on above: Performed By: #### G BPCR ####[facility] [id number] [place] [address] [place] URINE OB DIP B/Oon 5 Glucose Ql (U) Negative Neg mg/dL [facility] Interpretation and review of laboratory results Normal [facility] Protein.monoclonal (U) [Mass/Vol] Negative Neg mg/dL [facility] Examination level ultrasound on 10-22-2024 [facility] Examination level ultrasound on 10-21-2024 Radiology Study observation (narrative) [facility] CBC W Auto Differential pane l (Bld)on 09-28-2024 Basophils (Bld) [#/Vol] 10*3/uL Normal <0.11 [facility] Comment on above: Order Comment: Speci men Type: BLOOD SPECIMEN Ordering Facility: [facility] Address: [address] [place] [address] Performed By: #### 5 7021-8 #### [facility] CLIA [id number] [address] [place] [address] [place] Basophils/100 WBC (Bld) 0.3 % Normal [facility] Comment on above: Order Comment: Speci men Type: BLOOD SPECIMEN Ordering Facility: [facility] Address: [address] [place] [address] Performed By: #### 5 7021-8 #### [facility] CLIA [id number] [address] [place] [address] [place] Differential cell count method Nom (Bld) Auto Normal [facility] Comment on above: Order Comment: Speci men Type: BLOOD SPECIMEN Ordering Facility: [facility] Address: [address] [place] [address] Performed By: #### 5 7021-8 #### [facility] CLIA [id number] [address] [place] [address] [place] Eosinophils (Bld) [#/Vol] 0.06 10*3/uL Normal <0.46 [facility] Comment on above: Order Comment: Speci men Type: BLOOD SPECIMEN Ordering Facility: [facility] Address: [address] [place] [address] Performed By: #### 5 7021-8 #### [facility] CLIA [id number] [address] [place] [address] [place] Eosinophils/100 WBC (Bld) 0.8 % Normal [facility] Comment on above: Order Comment: Speci men Type: BLOOD SPECIMEN Ordering Facility: [facility] Address: [address] [place] [address] Performed By: #### 5 7021-8 #### [facility] CLIA [id number] [address] [place] [address] [place] Erythrocyte distribution width (RBC) [Ratio] 14.1 % Normal 11.5-15.0 [facility] Comment on above: Order Comment: Speci men Type: BLOOD SPECIMEN Ordering Facility: [facility] Address: [address] [place] [address] Performed By: #### 5 7021-8 #### [facility] CLIA [id number] [address] [place] [address] [place] Hematocrit (Bld) [Volume fraction] 36.5 % Normal 36.0-46.0 [facility] Comment on above: Order Comment: Speci men Type: BLOOD SPECIMEN Ordering Facility: [facility] Address: [address] [place] [address] Performed By: #### 5 7021-8 #### [facility] CLIA [id number] [address] [place] [address] [place] Hemoglobin (Bld) [Mass/Vol] 11.7 g/dL Normal 11.5-15.5 [facility] Comment on above: Order Comment: Speci men Type: BLOOD SPECIMEN Ordering Facility: [facility] Address: [address] [place] [address] Performed By: #### 5 7021-8 #### [facility] CLIA [id number] [address] [place] [address] [place] Immature granulocytes (Bld) [#/Vol] 0.05 10*3/uL Normal <0.10 [facility] Comment on above: Order Comment: Speci men Type: BLOOD SPECIMEN Ordering Facility: [facility] Address: [address] [place] [address] Performed By: #### 5 7021-8 #### [facility] CLIA [id number] [address] [place] [address] [place] Immature granulocytes/100 WBC (Bld) 0.6 % Normal [facility] Comment on above: Order Comment: Speci men Type: BLOOD SPECIMEN Ordering Facility: [facility] Address: [address] [place] [address] Performed By: #### 5 7021-8 #### [facility] CLIA [id number] [address] [place] [address] [place] Lymphocytes (Bld) [#/Vol] 1.36 10*3/uL Normal 1.00-4.00 [facility] Comment on above: Order Comment: Speci men Type: BLOOD SPECIMEN Ordering Facility: [facility] Address: [address] [place] [address] Performed By: #### 5 7021-8 #### [facility] CLIA [id number] [address] [place] [address] [place] Lymphocytes/100 WBC (Bld) 17.4 % Normal [facility] Comment on above: Order Comment: Speci men Type: BLOOD SPECIMEN Ordering Facility: [facility] Address: [address] [place] [address] Performed By: #### 5 7021-8 #### [facility] CLIA [id number] [address] [place] [address] [place] MCH (RBC) [Entitic mass] 28.0 pg Normal 26.0-34.0 [facility] Comment on above: Order Comment: Speci men Type: BLOOD SPECIMEN Ordering Facility: [facility] Address: [address] [place] [address] Performed By: #### 5 7021-8 #### [facility] CLIA [id number] [address] [place] [address] [place] MCHC (RBC) [Mass/Vol] 32.1 g/dL Normal 30.5-36.0 [facility] Comment on above: Order Comment: Speci men Type: BLOOD SPECIMEN Ordering Facility: [facility] Address: [address] [place] [address] Performed By: #### 5 7021-8 #### [facility] CLIA [id number] [address] [place] [address] [place] MCV (RBC) [Entitic vol] 87.3 fL Normal 80.0-100.0 [facility] Comment on above: Order Comment: Speci men Type: BLOOD SPECIMEN Ordering Facility: [facility] Address: [address] [place] [address] Performed By: #### 5 7021-8 #### [facility] CLIA [id number] [address] [place] [address] [place] Monocytes (Bld) [#/Vol] 0.48 10*3/uL Normal <0.87 [facility] Comment on above: Order Comment: Speci men Type: BLOOD SPECIMEN Ordering Facility: [facility] Address: [address] [place] [address] Performed By: #### 5 7021-8 #### [facility] CLIA [id number] [address] [place] [address] [place] Monocytes/100 WBC (Bld) 6.1 % Normal [facility] Comment on above: Order Comment: Speci men Type: BLOOD SPECIMEN Ordering Facility: [facility] Address: [address] [place] [address] Performed By: #### 5 7021-8 #### [facility] CLIA [id number] [address] [place] [address] [place] Neutrophils (Bld) [#/Vol] 5.85 10*3/uL Normal 1.45-7.50 [facility] Comment on above: Order Comment: Speci men Type: BLOOD SPECIMEN Ordering Facility: [facility] Address: [address] [place] [address] Performed By: #### 5 7021-8 #### [facility] CLIA [id number] [address] [place] [address] [place] Neutrophils/100 WBC (Bld) 74.8 % Normal [facility] Comment on above: Order Comment: Speci men Type: BLOOD SPECIMEN Ordering Facility: [facility] Address: [address] [place] [address] Performed By: #### 5 7021-8 #### [facility] CLIA [id number] [address] [place] [address] [place] Nucleated RBC (Bld) [#/Vol] 10*3/uL Normal <0.01 [facility] Comment on above: Order Comment: Speci men Type: BLOOD SPECIMEN Ordering Facility: [facility] Address: [address] [place] [address] Performed By: #### 5 7021-8 #### [facility] CLIA [id number] [address] [place] [address] [place] Nucleated RBC/100 WBC (Bld) [Ratio] 0.0 /100 WBC Normal [facility] Comment on above: Order Comment: Speci men Type: BLOOD SPECIMEN Ordering Facility: [facility] Address: [address] [place] [address] Performed By: #### 5 7021-8 #### [facility] CLIA [id number] [address] [place] [address] [place] Platelet mean volume (Bld) [Entitic vol] 10.0 fL Normal 9.0-12.7 [facility] Comment on above: Order Comment: Speci men Type: BLOOD SPECIMEN Ordering Facility: [facility] Address: [address] [place] [address] Performed By: #### 5 7021-8 #### [facility] CLIA [id number] [address] [place] [address] [place] Platelets (Bld) [#/Vol] 278 10*3/uL Normal 150-400 [facility] Comment on above: Order Comment: Speci men Type: BLOOD SPECIMEN Ordering Facility: [facility] Address: [address] [place] [address] Performed By: #### 5 7021-8 #### [facility] CLIA [id number] [address] [place] [address] [place] RBC (Bld) [#/Vol] 4.18 10*6/uL Normal 3.90-5.20 [facility] Comment on above: Order Comment: Speci men Type: BLOOD SPECIMEN Ordering Facility: [facility] Address: [address] [place] [address] Performed By: #### 5 7021-8 #### [facility] CLIA [id number] [address] [place] [address] [place] WBC (Bld) [#/Vol] 7.82 10*3/uL Normal 3.70-11.00 [facility] Comment on above: Order Comment: Speci men Type: BLOOD SPECIMEN Ordering Facility: [facility] Address: [address] [place] [address] Performed By: #### 5 7021-8 #### [facility] CLIA [id number] [address] [place] [address] [place] GESTATIONAL GLUCOSE SCREEN, 1-HOUR, 50 GRAM, NON-FASTINGon 09-28-2024 Glucose [Mass/Vol] 121 mg/dL Normal 74-134 [facility] Comment on above: Order Comment: Speci men Type: BLOOD SPECIMENOrdering Facility: [facility] Address: [address] [place] [address] Result Comment: er [facility] Congress of Obstetricians and Gynecologists (Yasemin/Kwame) guidelines state a gestational diabetes mellitus positive screen is made, in women not previously diagnosed with overt diabetes, when the 1 hr plasma glucose level is equal to or above 140 mg/dL. The [facility] It [employer] and [facility] [place] recommends a 135 mg/dL cutoff. Performed By: #### G LTGST ####[facility] [id number] [place] [address] [place] Reagin and Treponema pallidu m IgG and IgM [Interp]on 09-28-2024 T. pallidum IgG+IgM IA Ql (S) Non-Reactive Normal Nonreactive [facility] Comment on above: Order Comment: Speci men Type: BLOOD SPECIMEN Ordering Facility: [facility] Address: [address] [place] [address] Performed By: #### L [id number] #### [facility] CLIA [id number] [address] [place] [address] [place] Reagin+T pallidum IgG+IgM Se rPl-Impon 09-28-2024 Reagin and Treponema pallidum IgG and IgM [Interp] Cannot exclude recent Treponemal infection if specimen collected within 7-10 days after appearance of suspect lesions or 2-3 weeks after an exposure. Clinical correlation is required. Normal [facility] Comment on above: Order Comment: Speci men Type: BLOOD SPECIMEN Ordering Facility: [facility] Address: [address] [place] [address] Performed By: #### L [id number] #### [facility] CLIA [id number] [address] [place] [address] [place] Examination level ultrasound on [...] 15 oz EFW by: Hadlock (HC-AC-FL) Extended Manager Materials Management 4.8 mm CM 4.8 mm 37% Nicolaides [...] normal LVOT view: normal 3-vessel view: normal 7-wfxgnp-uykztlx view: normal Heart / Thorax Situs: situs [...] Read By: Deborah Puente M.D. MATERNAL MEDICINE [facility] Examination level ultrasound on 08-04-2024 Radiology Study observation (narrative) [facility] Examination level ultrasound on 07-07-2024 [...] 7 oz EFW by: Hadlock (HC-AC-FL) Extended Manager Materials Management 6.8 mm CM 4.0 mm 46% Nicolaides Extremities / Bony Struc FL / HC 0.18 88% Hadlock Other Structures FHR 146 bpm Anatomy Cranium: normal Lateral ventricles: normal Choroid plexus: normal Midline falx: normal Cerebellum: normal Cisterna magna: normal Lips: normal Face Coronal face: normal 4-chamber view: suboptimally visualized RVOT view: suboptimally visualized LVOT view: suboptimally visualized 3-vessel view: suboptimally visualized 3-yomdlf-jmvaeyb view: suboptimally visualized Heart / Thorax Diaphragm: [...] Read By: Deborah Puente M.D. MATERNAL MEDICINE [facility] Radiology Study observation (narrative) [facility] Basic Metabolic Profile (BMP )on 06-18-2024 BUN/CRE 10.5 RATIO Normal 10-20 [place] Comment on above: Performed By: #### L 500.2500 #### [facility] [address] [place], [address] CA,Total 9.3 mg/dL Normal 8.5-10.1 [facility] Comment on above: Performed By: #### L 500.2500 #### [facility] [address] [place], [address] Chloride [Moles/Vol] 107 mmol/L Normal 98-107 [facility] Comment on above: Performed By: #### L 500.2500 #### [facility] [address] [place], [address] CO2 [Moles/Vol] 25.0 mmol/L Normal 21.0-32.0 [facility] Comment on above: Performed By: #### L 500.2500 #### [facility] [address] [place], [address] Creatinine [Mass/Vol] 0.66 mg/dL Normal 0.55-1.02 [facility] Comment on above: Result Comment: The validity of the calculated GFR GFRAA in patients over 70 years has not been determined. Clinical correlation is essential. Performed By: #### L 500.2500 #### [facility] [address] [place], [address] ECRCL 136.19 ml/min Normal [facility] Comment on above: Performed By: #### L 500.2500 #### [facility] [address] [place], [address] EST GFR - AA 135 mL/min Normal >60 [facility] Comment on above: Result Comment: Afri can Ethiopian GFR Calc Performed By: #### L 500.2500 #### [facility] [address] [place], [address] GAP 7 Normal 5-15 [facility] Comment on above: Performed By: #### L 500.2500 #### [facility] [address] [place], [address] GFR/1.73 sq M.predicted among non-blacks MDRD (S/P/Bld) [Vol rate/Area] 112 mL/min/{1.73_m2} Normal >60 [facility] Comment on above: Result Comment: Non- GFR Calc Performed By: #### L 500.2500 #### [facility] [address] [place], [address] Glucose [Mass/Vol] 83 mg/dL Normal 74-106 [facility] Comment on above: Performed By: #### L 500.2500 #### [facility] [address] [place], [address] Potassium [Moles/Vol] 3.8 mmol/L Normal 3.5-5.1 [facility] Comment on above: Result Comment: Slig ht Hemolysis, Result may be falsely increased. Performed By: #### L 500.2500 #### [facility] [address] [place], [address] Sodium [Moles/Vol] 138 mmol/L Normal 136-145 [facility] Comment on above: Performed By: #### L 500.2500 #### [facility] [address] [place], [address] Urea nitrogen [Mass/Vol] 7 mg/dL Normal 7-18 [facility] Comment on above: Performed By: #### L 500.2500 #### [facility] [address] [place], [address] CNPLaura 06-18-2024 CNPN Telephone (OBGYW) HERMINIA GOTTLIEB ([id number]) 1995 F Date Time Provider Department 06/18/24 [...] and did state she would go to [facility]. PIA Soto Jennifer, MD 06/18/2024 8:53 [...] Status:Closed by LISA PEDRO on 07/08/24 Normal [facility] Emergency Department Summary on 06-18-2024 Emergency Department Summary [facility] Medical Records Department [address] [facility] [place] [address] Emergency Department Summary 06/18/24 MR#: [id number] Acct: [id number] Name: HERMINIA GOTTLIEB SARAH Rep #: [id number] : 1995 28 From: Stanislaw Weber MD [...] Due date is mid December. Seeing the [facility] group. She has had nausea [...] tablet promethazine 25 mg rectal [address] Q6H PRN PRN Nausea #6 sup p [...] effort a (more content not included)... [facility] Visit (GAVINROGELIO ) HERMINIA GOTTLIEB ([id number]) 1995 F Date Time Provider Department 06/16/24 5:20 PM [facility] During your visit today, we recorded the [...] Pulses: Nor (more content not included)... Normal [facility] STREP A MOLECULAR (POC)on Procedural Control Valid [facility] Strep A (POCT) Negative Negative [facility] CNPNon 06-15-2024 CNPN Telephone (OBGYWM) HERMINIA GOTTLIEB ([id number]) 1995 F Date Time Provider Department 06/15/24 [...] risk in first trimester [O09.91] Order(s):OBSTETRIC ULTRASOUND [facility] [[id number]] Order #: [id number]: 1 FUTURE Prescriptions as of 06/16/2024 - [...] med list, 07/31/2007. Chari Gan LPN 06/28 [facility] on Prozac and control pills Problem List [...] Encounter Status:Closed by ITA HAYDEN on 06/16/24 [facility] Telephone (OBGYWM) HERMINIA GOTTLIEB ([id number]) 1995 F Date Time Provider Department 06/15/24 EMILEE ROSE During your visit today, we recorded the following information about you: Mt Baron MA 06/15/2024 3:42 PM Signed Received [facility] paperwork. Completed and on providers desk for signature. STANISLAV Baez Morgan, MA 06/24/2024 12:07 PM Signed [facility] paperwork was completed and faxed back to employer. Mt Baron MA Allergies As of Date: 06/15/2024 Noted Allergy Reaction SEASONAL ALLERGIES 10/15/2010 14 - Other: See Comments Comments: cough, sneeze,watery eyes Date Reviewed: 06/09/2024 Reviewed by: Mt Baron MA - Fully Assessed Reason for Visit: [facility] Paperwork [[id number]] Prescriptions as of 06/24/2024 - [...] med list, 07/31/2007. Chari Malik BELL 06/28 [facility] on Prozac and control pills Problem List [...] Encounter Status:Closed by MT [facility] HERMINIA GOTTLIEB ([id number]) 1995 F Date Time Provider Department 06/15/24 [...] Assessed Reason for Visit: Behavioral Health Appointment [4137] Prescriptions as of 06/28/2024 - ondansetron (ZOFRAN) [...] med list, 07/31/2007. Chari Gan LPN 06/28 [facility] [facility] Prozac and control pills Problem List As Of Date 06/15/2024 Noted Resolved Recurrent major depressive disorder, in remissi*01/21/2019 Herpes simplex [B00.9] 01/21/2019 Episodic lightheadedness [R42] 09/06/2019 Anxiety and depression [F41.9, F32.A] 07/28/2020 Obesity in [O99.210] 05/12/2024 Cold sores [B00.1] 05/12/2024 History of suicide attempt [Z91.51] 05/12/2024 Supervision of high risk in [facility] tri*05/12/2024 Nausea and vomiting in [O21.9] 05/12/2024 Rubella non-immune status, antepartum [O09.899,*06/14/2024 Encounter Status:Closed by EVELYN NEVES on 06/28/24 Normal [facility] CBC W Auto Differential pane l (Bld)on 06-09-2024 Basophils (Bld) [#/Vol] 10*3/uL Normal <0.11 [facility] Comment on above: Order Comment: Speci men Type: BLOOD SPECIMENOrdering Facility: [facility] Address: [address] [place] [address] Performed By: #### 5 7021-8 ####[facility] LABCLIA [id number] [place] [address] [place] Basophils/100 WBC (Bld) 0.2 % Normal [facility] Comment on above: Order Comment: Speci men Type: BLOOD SPECIMENOrdering Facility: [facility] Address: [address] [place] [address] Performed By: #### 5 7021-8 ####[facility] LABCLIA [id number] [place] [address] [place] Differential cell count method Nom (Bld) Auto Normal [facility] Comment on above: Order Comment: Speci men Type: BLOOD SPECIMENOrdering Facility: [facility] Address: [address] [place] [address] Performed By: #### 5 7021-8 ####[facility] LABCLIA [id number] [place] [address] [place] Eosinophils (Bld) [#/Vol] 0.04 10*3/uL Normal <0.46 [facility] Comment on above: Order Comment: Speci men Type: BLOOD SPECIMENOrdering Facility: [facility] Address: [address] [place] [address] Performed By: #### 5 7021-8 ####[facility] LABCLIA [id number] [place] [address] [place] Eosinophils/100 WBC (Bld) 0.5 % Normal [facility] Comment on above: Order Comment: Speci men Type: BLOOD SPECIMENOrdering Facility: [facility] Address: [address] [place] [address] Performed By: #### 5 7021-8 ####[facility] LABCLIA [id number] [place] [address] [place] Hematocrit (Bld) [Volume fraction] 40.1 % Normal 36.0-46.0 [facility] Comment on above: Order Comment: Speci men Type: BLOOD SPECIMENOrdering Facility: [facility] Address: [address] [place] [address] Performed By: #### 5 7021-8 ####[facility] LABCLIA [id number] [place] [address] [place] Hemoglobin (Bld) [Mass/Vol] 12.9 g/dL Normal 11.5-15.5 [facility] Comment on above: Order Comment: Speci men Type: BLOOD SPECIMENOrdering Facility: [facility] Address: [address] [place] [address] Performed By: #### 5 7021-8 ####[facility] LABCLIA [id number] [place] [address] [place] Immature granulocytes (Bld) [#/Vol] 10*3/uL Normal <0.10 [facility] Comment on above: Order Comment: Speci men Type: BLOOD SPECIMENOrdering Facility: [facility] Address: [address] [place] [address] Performed By: #### 5 7021-8 ####[facility] LABCLIA [id number] [place] [address] [place] Immature granulocytes/100 WBC (Bld) 0.2 % Normal [facility] Comment on above: Order Comment: Speci men Type: BLOOD SPECIMENOrdering Facility: [facility] Address: [address] [place] [address] Performed By: #### 5 7021-8 ####[facility] LABCLIA [id number] [place] [address] [place] Lymphocytes (Bld) [#/Vol] 1.50 10*3/uL Normal 1.00-4.00 [facility] Comment on above: Order Comment: Speci men Type: BLOOD SPECIMENOrdering Facility: [facility] Address: [address] [place] [address] Performed By: #### 5 7021-8 ####[facility] LABCLIA [id number] [place] [address] [place] Lymphocytes/100 WBC (Bld) 18.7 % Normal [facility] Comment on above: Order Comment: Speci men Type: BLOOD SPECIMENOrdering Facility: [facility] Address: [address] [place] [address] Performed By: #### 5 7021-8 ####[facility] LABIA [id number] [place] [address] [place] MCH (RBC) [Entitic mass] 27.3 pg Normal 26.0-34.0 [facility] Comment on above: Order Comment: Speci men Type: BLOOD SPECIMENOrdering Facility: [facility] Address: [address] [place] [address] Performed By: #### 5 7021-8 ####[facility] LABCLIA [id number] [place] [address] [place] MCHC (RBC) [Mass/Vol] 32.2 g/dL Normal 30.5-36.0 [facility] Comment on above: Order Comment: Speci men Type: BLOOD SPECIMENOrdering Facility: [facility] Address: [address] [place] [address] Performed By: #### 5 7021-8 ####[facility] LABCLIA [id number] [place] [address] [place] MCV (RBC) [Entitic vol] 85.0 fL Normal 80.0-100.0 [facility] Comment on above: Order Comment: Speci men Type: BLOOD SPECIMENOrdering Facility: [facility] Address: [address] [place] [address] Performed By: #### 5 7021-8 ####[facility] LABCLIA [id number] [place] [address] [place] Monocytes (Bld) [#/Vol] 0.56 10*3/uL Normal <0.87 [facility] Comment on above: Order Comment: Speci men Type: BLOOD SPECIMENOrdering Facility: [facility] Address: [address] [place] [address] Performed By: #### 5 7021-8 ####[facility] LABCLIA [id number] [place] [address] [place] Monocytes/100 WBC (Bld) 7.0 % Normal [facility] Comment on above: Order Comment: Speci men Type: BLOOD SPECIMENOrdering Facility: [facility] Address: [address] [place] [address] Performed By: #### 5 7021-8 ####[facility] LABCLIA [id number] [place] [address] [place] Neutrophils (Bld) [#/Vol] 5.87 10*3/uL Normal 1.45-7.50 [facility] Comment on above: Order Comment: Speci men Type: BLOOD SPECIMENOrdering Facility: [facility] Address: [address] [place] [address] Performed By: #### 5 7021-8 ####[facility] LABCLIA [id number] [place] [address] [place] Neutrophils/100 WBC (Bld) 73.4 % Normal [facility] Comment on above: Order Comment: Speci men Type: BLOOD SPECIMENOrdering Facility: [facility] Address: [address] [place] [address] Performed By: #### 5 7021-8 ####[facility] LABIA [id number] [place] [address] [place] Nucleated RBC (Bld) [#/Vol] 10*3/uL Normal <0.01 [facility] Comment on above: Order Comment: Speci men Type: BLOOD SPECIMENOrdering Facility: [facility] Address: [address] [place] [address] Performed By: #### 5 7021-8 ####[facility] [id number] [place] [address] [place] Nucleated RBC/100 WBC (Bld) [Ratio] 0.0 /100 WBC Normal [facility] Comment on above: Order Comment: Speci men Type: BLOOD SPECIMENOrdering Facility: [facility] Address: [address] [place] [address] Performed By: #### 5 7021-8 ####[facility] LABIA [id number] [place] [address] [place] Platelet mean volume (Bld) [Entitic vol] 10.6 fL Normal 9.0-12.7 [facility] Comment on above: Order Comment: Speci men Type: BLOOD SPECIMENOrdering Facility: [facility] Address: [address] [place] [address] Performed By: #### 5 7021-8 ####[facility] LABIA [id number] [place] [address] [place] Platelets (Bld) [#/Vol] 252 10*3/uL Normal 150-400 [facility] Comment on above: Order Comment: Speci men Type: BLOOD SPECIMENOrdering Facility: [facility] Address: [address] [place] [address] Result Comment: No c lot detected. Performed By: #### 5 7021-8 ####[facility] LABCLIA [id number] [place] [id number] [place] RBC (Bld) [#/Vol] 4.72 10*6/uL Normal 3.90-5.20 [facility] Comment on above: Order Comment: Speci men Type: BLOOD SPECIMENOrdering Facility: [facility] Address: [address] [place] [address] Performed By: #### 5 7021-8 ####[facility] LABCLIA [id number] [place] [id number] [place] WBC (Bld) [#/Vol] 8.01 10*3/uL Normal 3.70-11.00 [facility] Comment on above: Order Comment: Speci men Type: BLOOD SPECIMENOrdering Facility: [facility] Address: [address] [place] [address] Performed By: #### 5 7021-8 ####[facility] LABCLIA [id number] [place] [id number] [place] nuchal translucency me asured by USon 06-09-2024 Indication First trimester anatomic survey Maternal obesity, BMI >35 Impression REMOTE READ The patient is referred for a first trimester anatomy scan including nuchal translucency measurement as clinically indicated. - Single, live, intrauterine . - [place] rump length measurement is consistent with the [...] view: suboptimal 4-chamber view with color: suboptimal 8-chdxwy-nuzgcmh view: suboptimal Abdominal cord insertion: normal Stomach: [...] Read By: Deborah Puente M.D. MATERNAL MEDICINE [facility] Radiology Study observation (narrative) [facility] HBV surface Ag Ser Qlon 02-0 HBV surface Ag Ql (S) Negative Normal Negative [facility] Comment on above: Order Comment: Speci men Type: BLOOD SPECIMENOrdering Facility: [facility] Address: [address] [place] [address] Performed By: #### 3 1201-7, 5195-3, 52665-0 ####[facility] LABCLIA [id number] [address] [place] HCV Ab Ser Qlon 06-09-2024 HCV Ab Ql (S) Negative Normal Negative [facility] Comment on above: Order Comment: Herman plascencia Type: BLOOD SPECIMEN [facility] Address: [address] [place] [address] Result Comment: The result suggests no evidence of active infection with Hepatitis C virus. Should recent infection be suspected, repeat testing may be considered 4-6 weeks after this draw. Performed By: #### L [id number] #### [facility] CLIA [id number] [address] [place] [address] [place] HGB ELECTROPHORESIS FOR EVAL (LAB ORDER)on 06-09-2024 Hemoglobin A (Bld) [Mass fraction] 97.6 % Normal 96.2-98.0 [facility] Comment on above: Order Comment: Herman plascencia Type: BLOOD SPECIMENOrdering Facility: [facility] Address: [address] [place] [address] Performed By: #### L [id number], HGBELEV ####[facility] LABCLIA [id number] [place] [address] [place] Hemoglobin A2 (Bld) [Mass fraction] 2.4 % Normal 2.0-3.1 [facility] Comment on above: Order Comment: Herman plascencia Type: BLOOD SPECIMENOrdering Facility: [facility] Address: [address] [place] [address] Performed By: #### L [id number], HGBELEV ####[facility] LABCLIA [id number] [place] [address] [place] Hemoglobin Unsp Elph (Bld) [Mass fraction] No abnormal hemoglobin identified. Normal No abnormal hemoglobin identified. [facility] Comment on above: Order Comment: Herman placsencia Type: BLOOD SPECIMENOrdering Facility: [facility] Address: [address] [place] [address] Performed By: #### L [id number], HGBELEV ####[facility] LABCLIA [id number] [place] [address] [place] HGB EVALUATION CASCADE INTER Archie 06-09-2024 Hemoglobin pattern (Bld) [Interp] Reviewed by Wendy Sampson M.D., Ph.D Normal [facility] Comment on above: Order Comment: Speci men Type: BLOOD SPECIMENOrdering Facility: [facility] Address: [address] [place] [address] Performed By: #### L [id number], HGBELEV ####[facility] LABCLIA [id number] [place] [address] [place] INTERPRETATION (HGB EVAL) Normal [facility] Comment on above: Order Comment: Speci men Type: BLOOD SPECIMENOrdering Facility: [facility] Address: [address] [place] [address] Result Comment: Hemo globins were analyzed by capillary electrophoresis and CBC red cell parameters were reviewed. No abnormal hemoglobin is identified. There is a normal hemoglobin capillary electrophoresis pattern. Performed By: #### L [id number], HGBELEV ####[facility] LABIA [id number] [place] [address] [place] HIV 1+2 Ab IA Qlon HIV 1 and 2 Ab IA.rapid Nom (S/P/Bld) Normal [facility] Comment on above: Order Comment: Speci men Type: BLOOD SPECIMENOrdering Facility: [facility] Address: [address] [place] [address] Result Comment: Test not indicated. Performed By: #### 3 1201-7, 5195-3, 38410-5 ####[facility] LABIA [id number] [place] [address] [place] HIV 1+2 Ab+HIV1 p24 Ag IA Ql Non-Reactive Normal Nonreactive [facility] Comment on above: Order Comment: Speci men Type: BLOOD SPECIMENOrdering Facility: [facility] Address: [address] [place] [address] Performed By: #### 3 1201-7, 5195-3, 89147-1 ####[facility] LABIA [id number] [place] [address] [place] HIV immunoassay testing algorithm interpretation (S/P/Bld) [Interp] Normal [facility] Comment on above: Order Comment: Speci men Type: BLOOD SPECIMENOrdering Facility: [facility] Address: [address] [place] [address] Result Comment: No e vidence of HIV-1 or HIV-2 infection. Should recent infection be suspected, repeat testing may be considered 2-3 weeks after this draw. [place] Rev. Code 3701.243(E): This information has been [...] diagnoses. Performed By: #### 3 1201-7, 5195-3, 78454-4 ####[facility] LABIA [id number] [place] [address] [place] HbA1c (Bld)on 06-09-2024 Average glucose Estimated from glycated hemoglobin (Bld) [Mass/Vol] 97 mg/dL Normal [facility] Comment on above: Order Comment: Speci men Type: BLOOD SPECIMENOrdering Facility: [facility] Address: [address] [place] [address] Result Comment: eAG: (Estimated average glucose) is a calculated value from HgbA1c and is physician relations representative of the average blood glucose level in the last 2-3 month period. Performed By: #### 5 5454-3 ####[facility] LABIA [id number] [place] [address] [place] HbA1c (Bld) [Mass fraction] 5.0 % Normal 4.3-5.6 [facility] Comment on above: Order Comment: Speci men Type: BLOOD SPECIMENOrdering Facility: [facility] Address: [address] [place] [address] Result Comment: [place] Diabetes Association guidelines indicate that patients with HgbA1c in the range 5.7-6.4% are at increased risk for development of diabetes, and intervention by lifestyle modification may be beneficial. HgbA1c greater or equal to 6.5% is considered diagnostic of diabetes. Performed By: #### 5 5454-3 ####[facility] LABCLIA [id number] [place] [address] [place] RBC PARAMETERS FOR HB IDon 0 06-09-2024 Erythrocyte distribution width (RBC) [Ratio] 13.0 % Normal 11.5-15.0 [facility] Comment on above: Order Comment: Speci men Type: BLOOD SPECIMEN [facility] Address: [address] [place] [address] Performed By: #### L [id number] #### [facility] CLIA [id number] [address] [place] [address] [place] Order Comment: Speci men Type: BLOOD SPECIMENOrdering Facility: [facility] Address: [address] [place] [address] Performed By: #### 5 7021-8 ####[facility] LABCLIA [id number] [place] [address] [place] Hematocrit (Bld) [Volume fraction] 40.5 % Normal 36.0-46.0 [facility] Comment on above: Order Comment: Speci men Type: BLOOD SPECIMEN [facility] Address: [address] [place] [address] Performed By: #### L [id number] #### [facility] CLIA [id number] [address] [place] [address] [place] Hemoglobin (Bld) [Mass/Vol] 12.7 g/dL Normal 11.5-15.5 [facility] Comment on above: Order Comment: Speci men Type: BLOOD SPECIMEN [facility] Address: [address] [place] [address] Performed By: #### L [id number] #### [facility] CLIA [id number] [address] [place] [address] [place] MCH (RBC) [Entitic mass] 27.1 pg Normal 26.0-34.0 [facility] Comment on above: Order Comment: Speci men Type: BLOOD SPECIMEN [facility] Address: [address] [place] [address] Performed By: #### L [id number] #### [facility] CLIA [id number] [address] [place] [address] [place] MCHC (RBC) [Mass/Vol] 31.4 g/dL Normal 30.5-36.0 [facility] Comment on above: Order Comment: Speci men Type: BLOOD SPECIMEN [facility] Address: [address] [place] [address] Performed By: #### L [id number] #### [facility] CLIA [id number] [address] [place] [address] [place] MCV (RBC) [Entitic vol] 86.4 fL Normal 80.0-100.0 [facility] Comment on above: Order Comment: Speci men Type: BLOOD SPECIMEN [facility] Address: [address] [place] [address] Performed By: #### L [id number] #### [facility] CLIA [id number] [address] [place] [address] [place] RBC (Bld) [#/Vol] 4.69 10*6/uL Normal 3.90-5.20 [facility] Comment on above: Order Comment: Speci men Type: BLOOD SPECIMEN [facility] Address: [address] [place] [address] Performed By: #### L [id number] #### [facility] CLIA [id number] [address] [place] [address] [place] RUBELLA IGG ANTIBODYon 06-09 RUBELLA IGG AB, QUAL Negative Abnormal Positive [facility] Comment on above: Order Comment: Redi temo Type: BLOOD SPECIMEN [facility] Address: [address] [place] [address] Result Comment: The result suggests no history of Rubella vaccination or exposure to Rubella virus, however, some individuals with past history of Rubella vaccination may test negative using this test as immunity to Rubella virus wanes over time after vaccination. Please correlate with vaccination history if applicable. Performed By: #### L [id number] #### [facility] CLIA [id number] [address] [place] [address] [place] Reagin and Treponema pallidu m IgG and IgM [Interp]on 06-09-2024 T. pallidum IgG+IgM IA Ql (S) Non-Reactive Normal Nonreactive [facility] Comment on above: Order Comment: Speci men Type: BLOOD SPECIMENOrdering Facility: [facility] Address: [address] [place] [address] Performed By: #### 3 1201-7, 5195-3, 55372-8 ####[facility] LABCLIA [id number] [place] [address] [place] Reagin+T pallidum IgG+IgM Se rPl-Impon 06-09-2024 Reagin and Treponema pallidum IgG and IgM [Interp] Cannot exclude recent Treponemal infection if specimen collected within 7-10 days after appearance of suspect lesions or 2-3 weeks after an exposure. Clinical correlation is required. Normal [facility] Comment on above: Order Comment: Herman plascencia Type: BLOOD SPECIMENOrdering Facility: [facility] Address: [address] [place] [address] Performed By: #### 3 1201-7, 5195-3, 30037-1 ####[facility] LABCLIA [id number] [place] [address] [place] TYPE + SCREEN PRENATALon ABO A Normal [facility] Comment on above: Order Comment: Speci men Type: BLOOD SPECIMEN [facility] Address: [address] [place] [address] Performed By: #### L [id number] #### [facility] CLIA [id number] [address] [place] [address] [place] Rh Nom (Bld) Positive Normal [facility] Comment on above: Order Comment: Speci men Type: BLOOD SPECIMEN [facility] Address: [address] [place] [address] Performed By: #### L [id number] #### [facility] CLIA [id number] [address] [place] [address] [place] TYPE AND SCREEN EXPIRATION 06/12/2024 23:59 Normal [facility] Comment on above: Order Comment: Speci men Type: BLOOD SPECIMEN [facility] Address: [address] [place] [address] Performed By: #### L [id number] #### [facility] CLIA [id number] [address] [place] [address] [place] CNOVon 06-01-2024 CNOV Office Visit (PSWSTR ) HERMINIA GOTTLIEB ([id number]) 1995 F Date Time Provider Department 06/01/24 4:30 PM DYAN COREY PSWSTR During your visit today, we recorded the following information about you: Pulse Respiration Blood pressure Weight 88/minute 18/minute 134/60 93.2 kg Dyan Corey, [employer].MULTI MEDIA SPECIALIST 06/09/2024 12:03 AM Signed FOLLOW UP - [...] Anxiety Disorder Scale (SUKHWINDER-7) 12/10/2023 03/28/2024 05/31/2024 SUKHWINEDR - 7 SCORES Score 4 5 4 [...] encounter leif (more content not included)... Normal [facility] BACTERIAL VAGINOSIS NAATon 0 05-12-2024 Lactobacillus crispatus+gasseri+je nsenii + Gardnerella vaginalis + Atopobium vaginae rRNA TELMA+probe Ql (Vag fld) Not detected Normal Not detected [facility] Comment on above: Order Comment: Speci men Type: BLOOD SPECIMEN [facility] Address: [address] [place] [address] Performed By: #### L [id number] #### [facility] CLIA [id number] [address] [place] [address] [place] Bacteria Ur Culton Bacteria identified Cx Nom (U) ORGANISM ID: 1 10,000 -<50,000 CFU/ml Normal urogenital thad Normal [facility] Comment on above: Performed By: #### 6 30-4 ####[facility] LABCLIA [id number] [place] [address] [place] C. trachomatis+N. gonorrhoea e DNA TELMA+probe Ql (Unsp spec)on 05-12-2024 C. trachomatis rRNA TELMA+probe Ql (Unsp spec) Not detected Normal [facility] [facility] Comment on above: Order Comment: Speci men Type: SWABOrdering Facility: [facility] Address: [address] [place] [address] Performed By: #### 3 6902-5 ####[facility] LABCLIA [id number] [place] [address] [place] N. gonorrhoeae rRNA TELMA+probe Ql (Unsp spec) Not detected Normal Not detected [facility] Comment on above: Order Comment: Speci men Type: SWABOrdering Facility: [facility] Address: [address] [place] [address] Performed By: #### 3 6902-5 ####[facility] LABCLIA [id number] [place] [address] [place] AB/TRICHOMONAS NAATon 0 05-12-2024 C. glabrata RNA TELMA+probe Ql (Vag fld) Not detected Normal Not detected [facility] Comment on above: Order Comment: Speci men Type: BLOOD SPECIMEN [facility] Address: [address] [place] [address] Performed By: #### L [id number] #### [facility] CLIA [id number] [address] [place] [address] [place] Ab sp DNA TELMA+probe Ql (Vag fld) Not detected Normal Not detected [facility] Comment on above: Order Comment: Speci men Type: BLOOD SPECIMEN [facility] Address: [address] [place] [address] Result Comment: The Ab species group target includes C. albicans, C. tropicalis, C. parapsilosis, and C. dubliniensis. Performed By: #### L [id number] #### [facility] CLIA [id number] [address] [place] [address] [place] T. vaginalis DNA TELMA+probe Ql (Unsp spec) Not detected Normal Not detected [facility] Comment on above: Order Comment: Speci men Type: BLOOD SPECIMEN [facility] Address: [address] [place] [address] Performed By: #### L [id number] #### [facility] CLIA [id number] [address] [place] [address] [place] POC HAT PRESSER ULTRASOUNDon 05-12-19 25 Indication Viability; confirm cardiac [...] Read By: Emilee Rose CNM MATERNAL MEDICINE [facility] Radiology Study observation (narrative) [facility] Urine Cultureon 05-12-2024 [facility] Mixed Gram Positive Organisms [place] Count 50,000-80,000 MIXC Mixed contaminants. Submit a new specimen if indicated. Normal [place] Comment on above: Performed By: #### M 100.2200 #### [facility] [place], [address] CNOVon 05-10-2024 CNOV Office Visit (FAMWS ) HERMINIA GOTTLIEB ([id number]) 1995 F Date Time Provider Department 05/10/24 7:40 AM СВЕТЛАНА SRINIVASAN FAMWS During your visit today, we recorded the following information about you: Pulse Blood pressure Weight 68/minute 108/64 90.3 kg Светлана Srinivasan APRN.MULTI MEDIA SPECIALIST 05/10/2024 11:48 AM Signed This is a [...] Rinse mouth after use.... uses as needed) gddqwgry-aiwv-HP-calc ium-mins 18 mg iron-400 mcg-500 mg Ca [...] She is agreeable to ER. Report to [facility]. Discussed treatment plan and patient voices understanding. Patient's questions answered appropriately. Medications and potential side effects were discussed and patient voices understanding. Return to the office as scheduled or as ne (more content not included)... Normal [facility] Emergency Department Summary on 05-10-2024 Emergency Department Summary [facility] Medical Records Department [address] [place] [address] Emergency Department Summary 05/10/24 MR#: [id number] Acct: [id number] Name: HERMINIA GOTTLIEB Rep #: [id number] : 1995 28 From: Gael Salinas MD PCP: RENEA Mccann Status:REG ER Location: ED HPI History of Present Illness Chief Complaint: Nausea/Vomiting Detail of Chief Complaint: Nausea vomiting due to . Informant: patient and PCP (Asbestos Shingle Inspector called and per patient) Onset/Context/Timing Onset: Weeks [...] tablet promethazine 25 mg rectal [address] Q6H PRN PRN Nausea #6 supp 05/10/24 [...] normal hea (more content not included)... Normal [place] Urinalysis, Completeon 05-10 BACTERIA 1+ /hpf Normal None Seen [facility] Comment on above: Order Comment: CLEAN CATCH Performed By: #### L 400.0001 #### [facility] [address] [place], [address] EPI,SQUAMOUS 0-5 SEEN Normal 5-10 [facility] Comment on above: Order Comment: CLEAN CATCH Performed By: #### L 400.0001 #### [facility] [address] [place], [address] Mucus Ql (Urine sed) 1+ /hpf Normal [facility] Comment on above: Order Comment: CLEAN CATCH Performed By: #### L 400.0001 #### [facility] [address] [place], [address] WBC 5-10 SEEN Normal 0-5 [facility] Comment on above: Order Comment: CLEAN CATCH Performed By: #### L 400.0001 #### [facility] [address] [place], [address] RBC 0 SEEN Normal 0-5 [facility] Comment on above: Order Comment: CLEAN CATCH Performed By: #### L 400.0001 #### [facility] [address] [place], [address] CNPNon 05-07-2024 CNPN Telephone (OBGYWM) HERMINIA GOTTLIEB ([id number]) 1995 F Date Time Provider Department 05/07/24 [...] hours. Can a medication be sent in? IPA Dan Courtney, APRN.CNM 05/07/2024 8:37 AM Signed [...] once daily. Rinse mouth after use. - aeuxnrxf-wbqi-BJ-calc ium-mins 18 mg iron-400 mcg-500 mg Ca [...] Encounter Status:Closed by [facility]AYEL[facility]MAN [facility] Tele[facility] (PSWSTR) HERMINIA GOTTLIEB ([id number]) 1995 F Date Time Provider Department 04/20/24 DYAN COREY PSTR During your visit today, we recorded the following information about you: Mahi Hull LPN 04/20/2024 9:54 AM Signed Call placed OV scheduled for 06/01/2024 @ 4:[address] on waiting list and watch for a 4 week visit open. Asked patient to call for a sooner visit if she has concerns. RAY rBown Nishi J, MUNICIPAL FIREFIGHTER.[facility] 04/20/2024 11:00 AM Signed Noted appointment time [...] once daily. Rinse mouth after use. - ubjvubqa-mfyy-PC-calc ium-mins 18 mg iron-400 mcg-500 mg Ca [...] med list, 07/31/2007. Chari Gan LPN 06/28 [facility] on Prozac and control pills Problem List As Of Date 04/20/2024 Noted Resolved Recurrent major depressive disorder, in remissi*01/21/2019 Herpes simplex [B00.9] 01/21/2019 Episodic lightheadedness [R42] 09/06/2019 Anxiety and depression [F41.9, F32.A] 07/28/2020 Encounter Status:Closed by MAHI HULL on 04/20/24 Normal [facility] CBC W Auto Differential pane l (Bld)on 01-27-2024 Basophils (Bld) [#/Vol] 0.04 10*3/uL Normal <0.11 [facility] Comment on above: Order Comment: Speci men Type: BLOOD SPECIMENOrdering Facility: [facility] Address: [address] [place] [address] Performed By: #### 5 7021-8 ####[facility] LABCLIA [id number] [place] [address] [place] Basophils/100 WBC (Bld) 0.6 % Normal [facility] Comment on above: Order Comment: Speci men Type: BLOOD SPECIMENOrdering Facility: [facility] Address: [address] [place] [address] Performed By: #### 5 7021-8 ####[facility] LABCLIA [id number] [place] [address] [place] Differential cell count method Nom (Bld) Auto Normal [facility] Comment on above: Order Comment: Speci men Type: BLOOD SPECIMENOrdering Facility: [facility] Address: [address] [place] [address] Performed By: #### 5 7021-8 ####[facility] LABCLIA [id number] [place] [address] [place] Eosinophils (Bld) [#/Vol] 0.09 10*3/uL Normal <0.46 [facility] Comment on above: Order Comment: Speci men Type: BLOOD SPECIMENOrdering Facility: [facility] Address: [address] [place] [address] Performed By: #### 5 7021-8 ####[facility] LABCLIA [id number] [place] [address] [place] Eosinophils/100 WBC (Bld) 1.4 % Normal [facility] Comment on above: Order Comment: Speci men Type: BLOOD SPECIMENOrdering Facility: [facility] Address: [address] [place] [address] Performed By: #### 5 7021-8 ####[facility] LABCLIA [id number] [place] [address] [place] Erythrocyte distribution width (RBC) [Ratio] 13.0 % Normal 11.5-15.0 [facility] Comment on above: Order Comment: Speci men Type: BLOOD SPECIMENOrdering Facility: [facility] Address: [address] [place] [address] Performed By: #### 5 7021-8 ####[facility] LABCLIA [id number] [place] [address] [place] Hematocrit (Bld) [Volume fraction] 40.5 % Normal 36.0-46.0 [facility] Comment on above: Order Comment: Speci men Type: BLOOD SPECIMENOrdering Facility: [facility] Address: [address] [place] [address] Performed By: #### 5 7021-8 ####[facility] LABCLIA [id number] [place] [address] [place] Hemoglobin (Bld) [Mass/Vol] 12.7 g/dL Normal 11.5-15.5 [facility] Comment on above: Order Comment: Speci men Type: BLOOD SPECIMENOrdering Facility: [facility] Address: [address] [place] [address] Performed By: #### 5 7021-8 ####[facility] LABCLIA [id number] [place] [address] [place] Immature granulocytes (Bld) [#/Vol] 10*3/uL Normal <0.10 [facility] Comment on above: Order Comment: Speci men Type: BLOOD SPECIMENOrdering Facility: [facility] Address: [address] [place] [address] Performed By: #### 5 7021-8 ####[facility] LABCLIA [id number] [place] [address] [place] Immature granulocytes/100 WBC (Bld) 0.2 % Normal [facility] Comment on above: Order Comment: Speci men Type: BLOOD SPECIMENOrdering Facility: [facility] Address: [address] [place] [address] Performed By: #### 5 7021-8 ####[facility] LABCLIA [id number] [place] [address] [place] Lymphocytes (Bld) [#/Vol] 2.14 10*3/uL Normal 1.00-4.00 [facility] Comment on above: Order Comment: Speci men Type: BLOOD SPECIMENOrdering Facility: [facility] Address: [address] [place] [address] Performed By: #### 5 7021-8 ####[facility] LABIA [id number] [place] [address] [place] Lymphocytes/100 WBC (Bld) 33.3 % Normal [facility] Comment on above: Order Comment: Speci men Type: BLOOD SPECIMENOrdering Facility: [facility] Address: [address] [place] [address] Performed By: #### 5 7021-8 ####[facility] LABIA [id number] [place] [address] [place] MCH (RBC) [Entitic mass] 26.8 pg Normal 26.0-34.0 [facility] Comment on above: Order Comment: Speci men Type: BLOOD SPECIMENOrdering Facility: [facility] Address: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 08:11-0500 Diastolic blood pressure 64 mm[Hg] Светлана Haagen MUNICIPAL FIREFIGHTER.MULTI MEDIA SPECIALIST Work Phone: [facility] 05-10-2024 08:11-0500 Heart rate 68 /min Светлана Srinivasan MUNICIPAL FIREFIGHTER.MULTI MEDIA SPECIALIST Work Phone: [facility] 05-10-2024 08:11-0500 Systolic blood pressure 108 mm[Hg] Светлана Haagen MUNICIPAL FIREFIGHTER.MULTI MEDIA SPECIALIST Work Phone: [facility] 01-27-2024 16:08-0400 Diastolic blood pressure 84 mm[Hg] Светлана Haagen MUNICIPAL FIREFIGHTER.MULTI MEDIA SPECIALIST Work Phone: [facility] 01-27-2024 16:08-0400 Heart rate 71 /min Светлана Haagen MUNICIPAL FIREFIGHTER.MULTI MEDIA SPECIALIST Work Phone: [facility] 01-27-2024 16:08-0400 Respiratory rate 16 /min Светлана Kimbroughagen MUNICIPAL FIREFIGHTER.MULTI MEDIA SPECIALIST Work Phone: [facility] 01-27-2024 16:08-0400 SaO2% (BldA) [Mass fraction] 99 % Светлана Srinivasan MUNICIPAL FIREFIGHTER.MULTI MEDIA SPECIALIST Work Phone: [facility] 01-27-2024 16:08-0400 Systolic blood pressure 128 mm[Hg] Светлана Haagen MUNICIPAL FIREFIGHTER.MULTI MEDIA SPECIALIST Work Phone: [facility] 10-06-2023 18:08-0400 Body mass index (BMI) [Ratio] 35.87 kg/m2 Светлана Srinivasan MUNICIPAL FIREFIGHTER.MULTI MEDIA SPECIALIST Work Phone: [facility] 10-06-2023 18:08-0400 Body weight 94.8 kg Светлана Srinivasan MUNICIPAL FIREFIGHTER.MULTI MEDIA SPECIALIST Work Phone: [facility] 10-06-2023 18:08-0400 Diastolic blood pressure 72 mm[Hg] Светлана Haagen MUNICIPAL FIREFIGHTER.MULTI MEDIA SPECIALIST Work Phone: [facility] 10-06-2023 18:08-0400 Heart rate 98 /min Светлана Srinivasan MUNICIPAL FIREFIGHTER.MULTI MEDIA SPECIALIST Work Phone: [facility] 10-06-2023 18:08-0400 Respiratory rate 16 /min Светлана Srinivasan MUNICIPAL FIREFIGHTER.MULTI MEDIA SPECIALIST Work Phone: [facility] 10-06-2023 18:08-0400 SaO2% (BldA) [Mass fraction] 98 % Светлана Srinivasan MUNICIPAL FIREFIGHTER.MULTI MEDIA SPECIALIST Work Phone: [facility] 10-06-2023 18:08-0400 Systolic blood pressure 120 mm[Hg] Светлана Srinivasan MUNICIPAL FIREFIGHTER.MULTI MEDIA SPECIALIST Work Phone: [facility] 08-08-2023 16:07-0400 Body height 162.6 cm Emilee Rose MUNICIPAL FIREFIGHTER.CNM Work Phone: [facility] 08-08-2023 16:07-0400 Body weight 96.62 kg Emilee Rose MUNICIPAL FIREFIGHTER.CNM Work Phone: [facility] 08-08-2023 16:07-0400 Diastolic blood pressure 72 mm[Hg] Emilee Rose MUNICIPAL FIREFIGHTER.CNM Work Phone: [facility] 08-08-2023 16:07-0400 Systolic blood pressure 114 mm[Hg] Emilee Rose MUNICIPAL FIREFIGHTER.CNM Work Phone: [facility] 06-16-2023 09:44-0500 Diastolic blood pressure 72 mm[Hg] Светлана Haagen MUNICIPAL FIREFIGHTER.MULTI MEDIA SPECIALIST Work Phone: [facility] 06-16-2023 09:44-0500 Heart rate 98 /min Светлана Haagen MUNICIPAL FIREFIGHTER.MULTI MEDIA SPECIALIST Work Phone: [facility] 06-16-2023 09:44-0500 Respiratory rate 16 /min Светлана Haagen MUNICIPAL FIREFIGHTER.MULTI MEDIA SPECIALIST Work Phone: [facility] 06-16-2023 09:44-0500 SaO2% (BldA) [Mass fraction] 98 % Светлана Haagen MUNICIPAL FIREFIGHTER.MULTI MEDIA SPECIALIST Work Phone: [facility] 06-16-2023 09:44-0500 Systolic blood pressure 100 mm[Hg] Светлана Haagen MUNICIPAL FIREFIGHTER.MULTI MEDIA SPECIALIST Work Phone: [facility] 04-15-2023 14:59-0500 Diastolic blood pressure 90 mm[Hg] Светлана Haagen MUNICIPAL FIREFIGHTER.MULTI MEDIA SPECIALIST Work Phone: [facility] 04-15-2023 14:59-0500 Heart rate 89 /min Светлана Haagen MUNICIPAL FIREFIGHTER.MULTI MEDIA SPECIALIST Work Phone: [facility] 04-15-2023 14:59-0500 Respiratory rate 16 /min Светлана Haagen MUNICIPAL FIREFIGHTER.MULTI MEDIA SPECIALIST Work Phone: [facility] 04-15-2023 14:59-0500 SaO2% (BldA) [Mass fraction] 98 % Светлана Haagen MUNICIPAL FIREFIGHTER.MULTI MEDIA SPECIALIST Work Phone: [facility] 04-15-2023 14:59-0500 Systolic blood pressure 124 mm[Hg] Светлана Haagen MUNICIPAL FIREFIGHTER.MULTI MEDIA SPECIALIST Work Phone: [facility] 12-23-2022 17:35-0400 Diastolic blood pressure 72 mm[Hg] Светлана Haagen MUNICIPAL FIREFIGHTER.MULTI MEDIA SPECIALIST Work Phone: [facility] 12-23-2022 17:35-0400 Heart rate 94 /min Светлана Haagen MUNICIPAL FIREFIGHTER.MULTI MEDIA SPECIALIST Work Phone: [facility] 12-23-2022 17:35-0400 Respiratory rate 16 /min Светлана Haagen MUNICIPAL FIREFIGHTER.MULTI MEDIA SPECIALIST Work Phone: [facility] 12-23-2022 17:35-0400 SaO2% (BldA) [Mass fraction] 98 % Светлана Haagen MUNICIPAL FIREFIGHTER.MULTI MEDIA SPECIALIST Work Phone: [facility] 12-23-2022 17:35-0400 Systolic blood pressure 104 mm[Hg] Светлана Haagen MUNICIPAL FIREFIGHTER.MULTI MEDIA SPECIALIST Work Phone: [facility] 08-28-2022 07:50-0400 Body weight 93.89 kg Светлана Haagen MUNICIPAL FIREFIGHTER.MULTI MEDIA SPECIALIST Work Phone: [facility] 08-28-2022 07:50-0400 Diastolic blood pressure 66 mm[Hg] Светлана Haagen MUNICIPAL FIREFIGHTER.MULTI MEDIA SPECIALIST Work Phone: [facility] 08-28-2022 07:50-0400 Heart rate 86 /min Светлана Haagen MUNICIPAL FIREFIGHTER.MULTI MEDIA SPECIALIST Work Phone: [facility] 08-28-2022 07:50-0400 Respiratory rate 16 /min Светлана Haagen MUNICIPAL FIREFIGHTER.MULTI MEDIA SPECIALIST Work Phone: [facility] 08-28-2022 07:50-0400 SaO2% (BldA) [Mass fraction] 98 % Светлана Haagen MUNICIPAL FIREFIGHTER.MULTI MEDIA SPECIALIST Work Phone: [facility] 08-28-2022 07:50-0400 Systolic blood pressure 120 mm[Hg] Светлана Haagen MUNICIPAL FIREFIGHTER.MULTI MEDIA SPECIALIST Work Phone: [facility] 08-12-2022 07:39-0400 Body weight 95.71 kg Светлана Haagen MUNICIPAL FIREFIGHTER.MULTI MEDIA SPECIALIST Work Phone: [facility] 08-12-2022 07:39-0400 Diastolic blood pressure 80 mm[Hg] Светлана Haagen MUNICIPAL FIREFIGHTER.MULTI MEDIA SPECIALIST Work Phone: [facility] 08-12-2022 07:39-0400 Heart rate 102 /min Светлана Haagen MUNICIPAL FIREFIGHTER.MULTI MEDIA SPECIALIST Work Phone: [facility] 08-12-2022 07:39-0400 Respiratory rate 16 /min Светлана Haagen MUNICIPAL FIREFIGHTER.MULTI MEDIA SPECIALIST Work Phone: [facility] 08-12-2022 07:39-0400 SaO2% (BldA) [Mass fraction] 96 % Светлана Haagen MUNICIPAL FIREFIGHTER.MULTI MEDIA SPECIALIST Work Phone: [facility] 08-12-2022 07:39-0400 Systolic blood pressure 104 mm[Hg] Светлана Haagen MUNICIPAL FIREFIGHTER.MULTI MEDIA SPECIALIST Work Phone: [facility] 07-03-2022 10:18-0500 Body height 162.6 cm Светлана Haagen MUNICIPAL FIREFIGHTER.MULTI MEDIA SPECIALIST Work Phone: [facility] 07-03-2022 10:18-0500 Body weight 96.16 kg Светлана Haagen MUNICIPAL FIREFIGHTER.MULTI MEDIA SPECIALIST Work Phone: [facility] 07-03-2022 10:18-0500 Diastolic blood pressure 74 mm[Hg] Светлана Haagen MUNICIPAL FIREFIGHTER.MULTI MEDIA SPECIALIST Work Phone: [facility] 07-03-2022 10:18-0500 Heart rate 85 /min Светлана Haagen MUNICIPAL FIREFIGHTER.MULTI MEDIA SPECIALIST Work Phone: [facility] 07-03-2022 10:18-0500 Respiratory rate 16 /min Светлана Haagen MUNICIPAL FIREFIGHTER.MULTI MEDIA SPECIALIST Work Phone: [facility] 07-03-2022 10:18-0500 SaO2% (BldA) [Mass fraction] 96 % Светлана Haagen MUNICIPAL FIREFIGHTER.MULTI MEDIA SPECIALIST Work Phone: [facility] 07-03-2022 10:18-0500 Systolic blood pressure 108 mm[Hg] Светлана Haagen MUNICIPAL FIREFIGHTER.MULTI MEDIA SPECIALIST Work Phone: [facility] 05-28-2022 09:54-0500 Body temperature 98.91 [degF] Светлана Haagen MUNICIPAL FIREFIGHTER.MULTI MEDIA SPECIALIST Work Phone: [facility] 05-28-2022 09:54-0500 Diastolic blood pressure 72 mm[Hg] Светлана Haagen MUNICIPAL FIREFIGHTER.MULTI MEDIA SPECIALIST Work Phone: [facility] 05-28-2022 09:54-0500 Heart rate 108 /min Светлана Haagen MUNICIPAL FIREFIGHTER.MULTI MEDIA SPECIALIST Work Phone: [facility] 05-28-2022 09:54-0500 Respiratory rate 18 /min Светлана Haagen MUNICIPAL FIREFIGHTER.MULTI MEDIA SPECIALIST Work Phone: [facility] 05-28-2022 09:54-0500 SaO2% (BldA) [Mass fraction] 95 % Светлана Haagen MUNICIPAL FIREFIGHTER.MULTI MEDIA SPECIALIST Work Phone: [facility] 05-28-2022 09:54-0500 Systolic blood pressure 104 mm[Hg] Светлана Haagen MUNICIPAL FIREFIGHTER.MULTI MEDIA SPECIALIST Work Phone: [facility] 04-17-2022 10:15-0500 Diastolic blood pressure 82 mm[Hg] Светлана Haagen MUNICIPAL FIREFIGHTER.MULTI MEDIA SPECIALIST Work Phone: [facility] 04-17-2022 10:15-0500 Heart rate 93 /min Светлана Haagen MUNICIPAL FIREFIGHTER.MULTI MEDIA SPECIALIST Work Phone: [facility] 04-17-2022 10:15-0500 Respiratory rate 18 /min Светлана Haagen MUNICIPAL FIREFIGHTER.MULTI MEDIA SPECIALIST Work Phone: [facility] 04-17-2022 10:15-0500 SaO2% (BldA) [Mass fraction] 98 % Светлана Haagen MUNICIPAL FIREFIGHTER.MULTI MEDIA SPECIALIST Work Phone: [facility] 04-17-2022 10:15-0500 Systolic blood pressure 138 mm[Hg] Светлана Haagen MUNICIPAL FIREFIGHTER.MULTI MEDIA SPECIALIST Work Phone: [facility] 03-20-2022 10:42-0500 Diastolic blood pressure 78 mm[Hg] Светлана Haagen MUNICIPAL FIREFIGHTER.MULTI MEDIA SPECIALIST Work Phone: [facility] 03-20-2022 10:42-0500 Heart rate 70 /min Светлана Haagen MUNICIPAL FIREFIGHTER.MULTI MEDIA SPECIALIST Work Phone: [facility] 03-20-2022 10:42-0500 Respiratory rate 18 /min Светлана Haagen MUNICIPAL FIREFIGHTER.MULTI MEDIA SPECIALIST Work Phone: [facility] 03-20-2022 10:42-0500 SaO2% (BldA) [Mass fraction] 98 % Светлана Haagen MUNICIPAL FIREFIGHTER.MULTI MEDIA SPECIALIST Work Phone: [facility] 03-20-2022 10:42-0500 Systolic blood pressure 110 mm[Hg] Светлана Haagen MUNICIPAL FIREFIGHTER.MULTI MEDIA SPECIALIST Work Phone: [facility] 02-22-2022 13:02-0400 Body weight 94.35 kg Светлана Haagen MUNICIPAL FIREFIGHTER.MULTI MEDIA SPECIALIST Work Phone: [facility] 02-22-2022 13:02-0400 Diastolic blood pressure 70 mm[Hg] Светлана Haagen MUNICIPAL FIREFIGHTER.MULTI MEDIA SPECIALIST Work Phone: [facility] 02-22-2022 13:02-0400 Heart rate 86 /min Светлана Haagen MUNICIPAL FIREFIGHTER.MULTI MEDIA SPECIALIST Work Phone: [facility] 02-22-2022 13:02-0400 Respiratory rate 18 /min Светлана Haagen MUNICIPAL FIREFIGHTER.MULTI MEDIA SPECIALIST Work Phone: [facility] 02-22-2022 13:02-0400 SaO2% (BldA) [Mass fraction] 98 % Светлана Haagen MUNICIPAL FIREFIGHTER.MULTI MEDIA SPECIALIST Work Phone: [facility] 02-22-2022 13:02-0400 Systolic blood pressure 110 mm[Hg] Светлана Haagen MUNICIPAL FIREFIGHTER.MULTI MEDIA SPECIALIST Work Phone: [facility] 01-25-2022 15:10-0400 Body weight 93.44 kg NA Oro PA-C Work Phone: [facility] 01-25-2022 15:10-0400 Diastolic blood pressure 60 mm[Hg] NA Oro PA-C Work Phone: [facility] 01-25-2022 15:10-0400 Heart rate 89 /min NA Oro PA-C Work Phone: [facility] 01-25-2022 15:10-0400 Respiratory rate 16 /min NA Oro PA-C Work Phone: [facility] 01-25-2022 15:10-0400 SaO2% (BldA) [Mass fraction] 98 % NA Oro PA-C Work Phone: [facility] 01-25-2022 15:10-0400 Systolic blood pressure 108 mm[Hg] NA Oro PA-C Work Phone: [facility] 01-16-2022 09:42-0400 Body weight 96.16 kg Светлана Haagen MUNICIPAL FIREFIGHTER.MULTI MEDIA SPECIALIST Work Phone: [facility] 01-16-2022 09:42-0400 Diastolic blood pressure 80 mm[Hg] Светлана Haagen MUNICIPAL FIREFIGHTER.MULTI MEDIA SPECIALIST Work Phone: [facility] 01-16-2022 09:42-0400 Heart rate 75 /min Светлана Haagen MUNICIPAL FIREFIGHTER.MULTI MEDIA SPECIALIST Work Phone: [facility] 01-16-2022 09:42-0400 Respiratory rate 18 /min Светлана Haagen MUNICIPAL FIREFIGHTER.MULTI MEDIA SPECIALIST Work Phone: [facility] 01-16-2022 09:42-0400 SaO2% (BldA) [Mass fraction] 98 % Светлана Haagen MUNICIPAL FIREFIGHTER.MULTI MEDIA SPECIALIST Work Phone: [facility] 01-16-2022 09:42-0400 Systolic blood pressure 110 mm[Hg] Светлана Haagen MUNICIPAL FIREFIGHTER.MULTI MEDIA SPECIALIST Work Phone: [facility] 10-31-2021 14:22-0400 Body weight 96.16 kg Светлана Haagen MUNICIPAL FIREFIGHTER.MULTI MEDIA SPECIALIST Work Phone: [facility] 10-31-2021 14:22-0400 Diastolic blood pressure 76 mm[Hg] Светлнаа Haagen MUNICIPAL FIREFIGHTER.MULTI MEDIA SPECIALIST Work Phone: [facility] 10-31-2021 14:22-0400 Heart rate 94 /min Светлана Haagen MUNICIPAL FIREFIGHTER.MULTI MEDIA SPECIALIST Work Phone: [facility] 10-31-2021 14:22-0400 Respiratory rate 18 /min Светлана Haagen MUNICIPAL FIREFIGHTER.MULTI MEDIA SPECIALIST Work Phone: [facility] 10-31-2021 14:22-0400 SaO2% (BldA) [Mass fraction] 97 % Светлана Srinivasan MUNICIPAL FIREFIGHTER.MULTI MEDIA SPECIALIST Work Phone: [facility] 10-31-2021 14:22-0400 Systolic blood pressure 110 mm[Hg] Светлана Srinivasan MUNICIPAL FIREFIGHTER.MULTI MEDIA SPECIALIST Work Phone: [facility] 10-31-2021 09:36-0400 Body height 162.6 cm Esther Link MD Work Phone: [facility] 10-31-2021 09:36-0400 Body weight 95.71 kg Esther Link MD Work Phone: [facility] 10-31-2021 09:36-0400 Diastolic blood pressure 62 mm[Hg] Esther Link MD Work Phone: [facility] 10-31-2021 09:36-0400 Systolic blood pressure 104 mm[Hg] Esther Link MD Work Phone: [facility] 07-26-2021 11:13-0400 Body weight 93.44 kg Tres Pugh MD Work Phone: [facility] 07-26-2021 11:13-0400 Diastolic blood pressure 66 mm[Hg] Tres Pugh MD Work Phone: [facility] 07-26-2021 11:13-0400 Heart rate 50 /min Tres Pugh MD Work Phone: [facility] 07-26-2021 11:13-0400 SaO2% (BldA) [Mass fraction] 98 % Tres Pugh MD Work Phone: [facility] 07-26-2021 11:13-0400 Systolic blood pressure 102 mm[Hg] Tres Pugh MD Work Phone: [facility] Encounters Encounter Date Encounter Type Care Provider Facility Start: 12-16-2024 ambulatory Светлана Srinivasan [facility] Start: 12-02-2024 End: 12-02-[facility] Start: 12-02-2024 End: 12-02-2024 [facility] Comment on above: Population Health Na vigation Outreach ( to PCP/OB/) Start: 11-30-2024 End: 11-30-2024 Patient encounter procedure Esther Link MD Work Phone: OB/Gynecology Comment on above: Obesity affecting pr egnancy in third trimester, unspecified obesity type (HCC) (Primary Dx); Supervision of high risk in third trimester (HCC); Herpes simplex; 37 weeks gestation of (HCC) Start: 11-30-2024 End: 11-30-2024 [facility] Facility:[facility] Start: 11-25-2024 End: 11-25-2024 Patient encounter procedure Kendy Collins MD Work Phone: OB/Gynecology Comment on above: Obesity affecting pr egnancy in third trimester, unspecified obesity type (HCC) (Primary Dx); 37 weeks gestation of (HCC); Supervision of high risk in second trimester (HCC) Start: 11-25-2024 End: 11-25-2024 [facility] Start: 11-17-2024 End: 11-17-2024 Patient encounter procedure [...] Start: 11-17-2024 End: 11-17-2024 ambulatory DENISA BENTLEY Facility:[facility] Start: 11-13-2024 End: 11-15-2024 Refill Nayeli Bowman [...] gestation of (HCC) Start: 11-02-2024 End: 11-02-2024 [facility] Start: 10-21-2024 End: 10-21-2024 Patient encounter procedure [...] obesity type (HCC) Start: 10-21-2024 End: 10-21-2024 [facility] Start: 10-13-2024 End: 10-13-2024 Patient encounter procedure Nayeli Bowman APRN.CNM Work Phone: OB/Gynecology Comment on above: Supervision of high risk in third trimester (HCC) (Primary Dx); Obesity affecting in third trimester, unspecified obesity type (HCC); Anxiety and depression; 30 weeks gestation of (HCC) Start: 10-13-2024 End: 10-13-2024 [facility] Facility:[facility] Start: 10-06-2024 End: 10-06-2024 Refill Vidal Willis [...] Need for vaccination Start: 09-28-2024 End: 09-28-2024 [facility] Facility:[facility] Start: 09-07-2024 End: 09-07-2024 [facility] Dyan Corey APRN.MULTI MEDIA SPECIALIST Work Phone: Psychiatry Comment on above: Generalized anxiety disorder (Primary Dx); 25 weeks gestation of (HCC) Start: 09-07-2024 End: 09-07-2024 [facility] DYAN COREY Facility:[facility] Start: 09-01-2024 End: 09-01-2024 Patient encounter procedure [...] for diabetes mellitus Start: 09-01-2024 End: 09-01-2024 [facility] Start: 08-23-2024 End: 08-23-2024 ambulatory Vidal Willis APRN.MULTI MEDIA SPECIALIST Work Phone: OB/Gynecology Comment on above: Zofran Prescription Start: 08-11-2024 End: 08-12-2024 Refill Gail Moreno MD Work Phone: OB/Gynecology Comment on above: Refill Request Start: 08-04-2024 End: 08-04-2024 ambulatory VIDAL WILLIS Facility:[facility] Start: 08-04-2024 End: 08-04-2024 Patient encounter procedure Vidal Willis JOSE.MULTI MEDIA SPECIALIST Work Phone: OB/Gynecology Comment on above: Supervision of high risk in second trimester (HCC) (Primary Dx); 20 weeks gestation of (HCC); Obesity in (HCC); History of suicide attempt; Nausea and vomiting during (HCC) Encounter for anatomic survey (HCC) (Primary Dx); 20 weeks gestation of (HCC); Obesity affecting in second trimester, unspecified obesity type (HCC) Start: 08-03-2024 End: 08-03-2024 [facility] Facility:[facility] Start: 08-03-2024 End: 08-03-2024 [facility] Dyan Corey APRN.MULTI MEDIA SPECIALIST Work Phone: Psychiatry Comment on above: Mood [...] Work Phone: OB/Gynecology Start: 07-07-2024 End: 07-07-2024 [facility] Facility:[facility] Start: 07-07-2024 End: 07-07-2024 Patient encounter procedure [employer] [facility] Comment on [...] Refill Request Start: 06-22-2024 End: 06-22-2024 ambulatory [facility] Facility:[facility] Start: 06-22-2024 End: 06-22-2024 Patient encounter procedure Denisa Bentley MD Work Phone: OB/Gynecology Comment on above: 14 weeks gestation o f (Primary Dx); Supervision of high risk in first trimester; Obesity in Start: 06-18-2024 End: 07-08-2024 Telephone encounter Denisa Bentley MD Work Phone: OB/Gynecology Start: 06-18-2024 End: 06-18-2024 Emergency department patient visit Светлана Srinivasan Facility:[place] Start: 06-16-2024 End: 06-16-2024 Office outpatient visit 15 minutes Candis Baez APRN.CNP Work Phone: [facility] [place] Comment on above: URI, acute (Primary Dx) Start: 06-16-2024 End: 06-16-2024 ambulatory CANDIS BAEZ Facility:[facility] Start: 06-15-2024 End: 06-28-2024 Telephone encounter Emilee Rose APRN.CNM Work Phone: OB/Gynecology Comment on above: Orders; Appointment FMLA Paperwork [facility] Ap pointment Start: 06-14-2024 End: 08-14-2024 Follow-up encounter Emilee Rose APRN.CNM Work Phone: OB/Gynecology Start: 06-09-2024 End: 06-09-2024 ambulatory [facility] Facility:[facility] Start: 06-09-2024 End: 06-09-2024 ambulatory EMILEE ROSE Facility:[facility] Start: 06-09-2024 End: 06-09-2024 Patient encounter procedure [employer] [facility] Comment on [...] Start: 06-01-2024 End: 06-01-2024 ambulatory DYAN COREY Facility:[facility] Start: 05-12-2024 End: 05-12-2024 ambulatory СВЕТЛАНА SRINIVASAN Facility:[facility] Start: 05-12-2024 End: 05-12-2024 Patient encounter procedure [...] 05-10-2024 End: 05-10-2024 Emergency department patient visit [facility] Facility:[place] Start: 05-10-2024 End: 05-10-2024 Office outpatient visit 15 minutes Светлана Srinivasan APRN.MULTI MEDIA SPECIALIST Work Phone: [facility] [place] Comment on above: Morning sickness (Pr imary Dx) Start: 05-10-2024 End: 05-10-2024 ambulatory Anca Luis RN NURSE [employer] SHINGLE INSPECTOR Comment on above: Opened In Error Start: [...] End: 05-02-2024 ambulatory Windy Zabala RN NURSE [employer]INGLE INSPECTOR Start: 05-02-2024 End: 05-02-2024 Patient encounter procedure Windy Zabala RN NURSE [employer]INGLE INSPECTOR Comment on above: Clinical Update Start: 04-20-2024 End: 04-20-2024 Telephone encounter Dyan Corey APRN.CNP Work Phone: Psychiatry Comment on above: Appointment Start: 04-18-2024 End: 05-03-2024 ambulatory Emilee Rose APRN.CNVeronica Work Phone: OB/Gynecology Comment on above: Start: 03-29-2024 End: 03-29-2024 ambulatory DYAN COREY Facility:[facility] Start: 03-29-2024 End: 03-29-2024 [facility] Dyan Corey APRN.CNP Work Phone: Psychiatry Comment on above: Mood disorder (HCC) (Primary Dx); Generalized anxiety disorder; Encounter for long-term (current) use of medications; Psychosocial stressors Start: 03-10-2024 End: 03-11-2024 Refill Dyan Corey APRN.CNP Work Phone: Psychiatry Comment on above: Refill Request Start: 01-27-2024 End: 01-27-2024 ambulatory [facility] Facility:[facility] Start: 01-27-2024 End: 01-27-2024 ambulatory [facility] Facility:[facility] Start: 01-27-2024 End: 01-27-2024 Office outpatient visit 15 minutes Светлана Srinivasan APRN.CNP Work Phone: [facility] [place] Comment on above: Acute constipation ( Primary Dx) Start: 12-15-2023 E-mail encounter fro m caregiver Dyan Corey APRN.DANICA Work Phone: Psychiatry Start: 12-15-2023 Follow-up encounter Dyan cherry APRN.CNP Work Phone: Psychiatry Comment on above: Follow Up Start: 12-12-2023 End: 12-12-2023 [facility] Dyan Corey APRN.MULTI MEDIA SPECIALIST Work Phone: Psychiatry Comment on above: Mood disorder (HCC) (Primary Dx); Generalized anxiety disorder Refill Request Start: 11-12-2023 Telephone encounter Ce erickson DPVeronica Work Phone: [facility] Comment on above: Appointment Start: 10-07-2023 ambulatory Светлана Srinivasan APRN.CNP Work Phone: [facility] [place] Start: 10-07-2023 Patient encounter procedure Светлана Srinivasan APRN.MULTI MEDIA SPECIALIST Work Phone: [facility] [place] Comment on above: EMG Referral Start: 10-06-2023 End: 10-06-2023 Office outpatient visit 25 minutes Светлана Srinivasan APRN.MULTI MEDIA SPECIALIST Work Phone: [facility] [place] Comment on above: Dryness of both ear canals (Primary Dx); Ear pain, bilateral; Medial epicondylitis of left elbow; Back strain, subsequent encounter Start: 10-06-2023 ambulatory Светлана Srinivasan APRN.DANICA Work Phone: [facility] [place] Comment on above: Chief Complaint Start: 09-05-2023 End: 09-05-2023 [facility] Dyan Corey APRN.MULTI MEDIA SPECIALIST Work Phone: Psychiatry Comment on above: Mood [...] encounter status Emilee Rose APRN.CNM Work Phone: [facility] Start: 07-17-2023 End: 07-17-2023 [facility] [place] Dyan Corey MUNICIPAL FIREFIGHTER.MULTI MEDIA SPECIALIST Work Phone: Psychiatry Comment on above: Mood disorder (HCC) (Primary Dx); Generalized anxiety disorder Start: 07-07-2023 End: 07-07-2023 [facility] [place] Dyan Corey MUNICIPAL FIREFIGHTER.MULTI MEDIA SPECIALIST Work Phone: Psychiatry Comment on above: Generalized anxiety disorder (Primary Dx); Mood disorder (HCC) Start: 06-26-2023 End: 06-26-2023 Subsequent hospital visit by physician [facility] 1 Work Phone: Radiology Comment on above: Low back pain, unspe cified back pain laterality, unspecified chronicity, unspecified whether sciatica present [M54.50] Start: 06-16-2023 End: 06-16-2023 Office outpatient visit 25 minutes Светлана Srinivasan APRN.MULTI MEDIA SPECIALIST Work Phone: [facility] [place] Comment on above: Low back pain, unspe cified back pain laterality, unspecified chronicity, unspecified whether sciatica present (Primary Dx); Nausea; Gastroesophageal reflux disease, unspecified whether esophagitis present Start: 05-12-2023 End: 05-12-2023 [facility] [place] Dyan [employer] Maryana MUNICIPAL FIREFIGHTER.MULTI MEDIA SPECIALIST Work Phone: Psychiatry Comment on above: Generalized anxiety disorder (Primary Dx); Mood disorder (HCC) Start: 04-15-2023 End: 04-15-2023 Office outpatient visit 25 minutes Светлана Srinivasan APRN.DANICA Work Phone: [facility] [place] Comment on above: Acute non-recurrent sinusitis, unspecified location (Primary Dx); Sore in nose; Family planning advice Start: 03-21-2023 End: 03-21-2023 [facility] Dyan Corey MUNICIPAL FIREFIGHTER.MULTI MEDIA SPECIALIST Work Phone: Psychiatry Comment on above: Generalized anxiety disorder (Primary Dx); Mood disorder (HCC) Start: 03-17-2023 ambulatory Dyan silvestre MUNICIPAL FIREFIGHTER.MULTI MEDIA SPECIALIST Work Phone: [facility] Start: 03-17-2023 Follow-up encounter Dyan cherry MUNICIPAL FIREFIGHTER.MULTI MEDIA SPECIALIST Work Phone: Psychiatry Comment on above: Follow Up from 03/07 Start: 02-27-2023 ambulatory Dyan silvestre MUNICIPAL FIREFIGHTER.MULTI MEDIA SPECIALIST Work Phone: Psychiatry Comment on above: Possible Side Effect Start: 02-12-2023 End: 02-12-2023 [facility] Dyan Corey MUNICIPAL FIREFIGHTER.MULTI MEDIA SPECIALIST Work Phone: Psychiatry Comment on above: Mood disorder (HCC) (Primary Dx); Generalized anxiety disorder Start: 02-11-2023 ambulatory Светлана Srinivasan MUNICIPAL FIREFIGHTER.MULTI MEDIA SPECIALIST Work Phone: [facility] Start: 02-11-2023 Patient encounter procedure Светлана Srinivasan APRN.MULTI MEDIA SPECIALIST Work Phone: [facility] [place] Comment on above: Dr Zaidi Appointment Start: 02-06-2023 Telephone encounter Светлана epps APRN.MULTI MEDIA SPECIALIST Work Phone: [facility] [place] Comment on above: Referral Request Start: 12-23-2022 End: 12-23-2022 Office outpatient visit 15 minutes Светлана Srinivasan APRN.MULTI MEDIA SPECIALIST Work Phone: [facility] [place] Comment on above: Bilateral hand pain (Primary Dx); Acute pain of right shoulder Start: 12-06-2022 ambulatory Светлана Srinivasan APRN.MULTI MEDIA SPECIALIST Work Phone: [facility] [place] Comment on above: Possible Carpal Tunn el, Bursitis/Arthritis of Shoulders Start: 10-16-2022 ambulatory Светлана Srinivasan APRN.MULTI MEDIA SPECIALIST Work Phone: [facility] [place] Comment on above: Possible Lingering Y east Infection Start: 08-28-2022 End: 08-28-2022 Office outpatient visit 15 minutes Светлана Srinivasan APRN.MULTI MEDIA SPECIALIST Work Phone: [facility] [place] Comment on above: Moderate episode of recurrent major depressive disorder (HCC) (Primary Dx); Bacterial sinusitis; Candidiasis Start: 08-12-2022 End: 08-12-2022 Office outpatient visit 25 minutes Светлана Srinivasan APRN.MULTI MEDIA SPECIALIST Work Phone: [facility] [place] Comment on above: Moderate episode of recurrent major depressive disorder (HCC) (Primary Dx); Bacterial sinusitis; Candidiasis Start: 08-11-2022 ambulatory Anca Burgos RN NU RSE [employer]INGLE INSPECTOR Comment on above: Vaginal Discharge Start: 07-10-2022 ambulatory Светлана Srinivasan APRN.MULTI MEDIA SPECIALIST Work Phone: [facility] [place] Comment on above: goodrx for Pristiq Start: 07-10-2022 E-mail encounter fro m caregiver Светлана Srinivasan APRN.MULTI MEDIA SPECIALIST Work Phone: [facility] Start: 07-10-2022 Telephone encounter Светлана epps APRN.MULTI MEDIA SPECIALIST Work Phone: [facility] [place] Comment on above: Insurance Authorizat ion (Pristiq ) Start: 07-03-2022 End: 07-03-2022 Office outpatient visit 15 minutes Светлана Srinivasan APRN.MULTI MEDIA SPECIALIST Work Phone: [facility] [place] Comment on above: Anxiety and depressi on Start: 06-08-2022 Refill Светлана Srinivasan APRN.MULTI MEDIA SPECIALIST Work Phone: [facility] [place] Comment on above: Refill Request Start: 05-28-2022 ambulatory Gladys Morris RN NURSE [employer] SHINGLE INSPECTOR Comment on above: Sore Throat Earache Start: 05-28-2022 End: 05-28-2022 Office outpatient visit 15 minutes Светлана Srinivasan APRN.MULTI MEDIA SPECIALIST Work Phone: [facility] [place] Comment on above: Symptoms of upper re spiratory infection (URI) (Primary Dx) Start: 04-22-2022 ambulatory Светлана Haagen MUNICIPAL FIREFIGHTER.MULTI MEDIA SPECIALIST Work Phone: [facility] [place] Comment on above: Sinus infection Start: 04-17-2022 End: 04-17-2022 Office outpatient visit 15 minutes Светлана Srinivasan MUNICIPAL FIREFIGHTER.MULTI MEDIA SPECIALIST Work Phone: [facility] [place] Comment on above: Anxiety and depressi on (Primary Dx); Recurrent cold sores; Symptoms of upper respiratory infection (URI) Start: 03-22-2022 Telephone encounter Светлана epps APRN.MULTI MEDIA SPECIALIST Work Phone: [facility] [place] Comment on above: Patient Update Start: 03-20-2022 End: 03-20-2022 Office outpatient visit 15 minutes Светлана Srinivasan MUNICIPAL FIREFIGHTER.MULTI MEDIA SPECIALIST Work Phone: [facility] [place] Comment on above: Recurrent major depr essive disorder, in remission (HCC) (Primary Dx) Start: 03-05-2022 Telephone encounter Светлана epps APRN.MULTI MEDIA SPECIALIST Work Phone: [facility] [place] Comment on above: Orders Start: 02-22-2022 End: 02-22-2022 Office outpatient visit 15 minutes Светлана Srinivasan MUNICIPAL FIREFIGHTER.MULTI MEDIA SPECIALIST Work Phone: [facility] [place] Comment on above: Anxiety and depressi on (Primary Dx) Start: 01-25-2022 End: 01-25-2022 Patient encounter andrea Oro PA-C Work Phone: [facility] [place] Comment on above: Recurrent major depr essive disorder, in remission (HCC) (Primary Dx) Start: 01-25-2022 ambulatory Светлана Srinivasan MUNICIPAL FIREFIGHTER.MULTI MEDIA SPECIALIST Work Phone: [facility] [place] Comment on above: Worsening Symptoms [facility] Start: 01-18-2022 Telephone encounter Светлана epps APRN.MULTI MEDIA SPECIALIST Work Phone: [facility] [place] Comment on above: Results Start: 01-16-2022 End: 01-16-2022 Office outpatient visit 25 minutes Светлана Srinivasan MUNICIPAL FIREFIGHTER.MULTI MEDIA SPECIALIST Work Phone: [facility] [place] Comment on above: Recurrent major depr essive disorder, in remission (HCC) (Primary Dx); Numbness and tingling; Cold extremities Start: 11-08-2021 ambulatory Светлана Srinivasan APRN.MULTI MEDIA SPECIALIST Work Phone: Family Medicine [place] Comment on above: Medication change Start: 11-04-2021 ambulatory Esther Link MD Work Phone: OB/Gynecology Comment on above: Question regarding P T ED OBSTETRICS & GYNECOLOGY Start: 10-31-2021 End: 10-31-2021 Office outpatient visit 15 minutes Светлана Srinivasan MUNICIPAL FIREFIGHTER.MULTI MEDIA SPECIALIST Work Phone: Family Medicine [place] Comment on [...] Phone: OB/Gynecology Start: 09-29-2021 ambulatory Светлана Srinivasan APRN.MULTI MEDIA SPECIALIST Work Phone: Family Medicine [place] Comment on [...] type Start: 07-17-2021 Telephone encounter Britta anton APRN.MULTI MEDIA SPECIALIST Work Phone: Family Medicine [place] Comment on above: error Start: 02-06-2017 Ambulatory Mahad shelton PAC Facility:[facility] Procedures Date Procedure Procedure Detail Performing [...] after 1st trimest 1/1st gestation Emilee Rose MUNICIPAL FIREFIGHTER.CNM Work Phone: Start: 10-21-2024 Us preg uterus after 1st trimest 1/1st gestation Emileegenevieve Rose MUNICIPAL FIREFIGHTER.CNM Work Phone: Start: 08-04-2024 Us preg uterus after 1st trimest 1/1st gestation Emilee Milton MUNICIPAL FIREFIGHTER.CNM Work Phone: Start: 07-07-2024 Us preg uterus after 1st trimest 1/1st gestation Emilee Milton MUNICIPAL FIREFIGHTER.CNM Work Phone: Start: 06-16-2024 STREP A MOLECULAR (POC) Candis Baez APRN.MULTI MEDIA SPECIALIST Work Phone: Start: 06-09-2024 Antibody screen СВЕТЛАНА SRINIVASAN Comment on above: Order Comment: Speci men Type: BLOOD SPECIMEN Ordering Facility: [facility] Address: [address] [place] [address] Performed By: #### L [id number] #### [facility] CLIA [id number] [address] [place] [address] [place] [address] [place] Start: 06-09-2024 Us nuchal translucency 1st gestation Emilee Rose APRN.CNM Work Phone: Start: 06-01-2024 Follow-up visit Follow Up DYAN J RAJGURU Start: 05-12-2024 Us uterus l imited 1/> fetuses Emilee Rose MUNICIPAL FIREFIGHTER.CNM Work Phone: Start: 06-16-2023 Urnls dip stick/tabl et rgnt auto w/o microscopy Светлана Srinivasan APRN.MULTI MEDIA SPECIALIST Work Phone: Start: 05-28-2022 COVID WITH FLUA+B, ROUTINE Светлана Srinivasan APRN.MULTI MEDIA SPECIALIST Work Phone: Start: 05-28-2022 STREP A MOLECULAR (POC) Светлана Srinivasan APRN.MULTI MEDIA SPECIALIST Work Phone: Plan of Treatment Date Care Activity Detail Author Start: 07-05-2070 RSV Vaccine (1 - 1-d ose 75+ series) RSV Vaccine (1 - 1-dose 75+ series) [facility] Start: 09-28-2034 Urine microalbumin profile DTaP,Tdap,Td Vaccine (10 - Td or Tdap) [facility] Start: 01-21-2029 Urine microalbumin profile [facility] Start: 01-03-2025 Influenza vaccination C [facility] Start: 12-24-2024 End: 12-24-2024 ambulatory 12/24/2024 2:30 PM EDT [facility] Psychiat[facility] [address] [place] [address] Dyan Corey, JOSE.MULTI MEDIA SPECIALIST [address] [place] [address] Psychiatry Start: 12-14-2024 End: 12-14-2024 [...] Routine Start: 10-31-2024 PAP TESTING PAP TESTING [facility] Start: 10-31-2024 Screening for malign ant neoplasm of cervix [facility] Start: 10-21-2024 End: 10-21-2024 Patient encounter procedure Maternal Medicine Comment on above: 32w Growth OB Routine Start: 10-13-2024 End: 10-13-2024 Patient encounter procedure 10/13/2024 4:30 PM EDT Routine Office Visit OB/Gynecology [address] [place] [address] Nayeli Bowman APRN.CN [address] [place] [address] OB Routine OB/Gynecology Comment on above: OB Routine Start: 09-29-2024 End: 09-29-2024 Patient encounter procedure 09/29/2024 4:20 PM EDT Routine Office Visit OB/Gynecology [address] [place] [address] Esther Milligan MD [address] [place] [address] 4 WK F/U UNA OB/Gynecology Comment on above: 4 WK F/U UNA Start: 09-28-2024 End: 09-28-2024 Patient encounter procedure 09/28/2024 3:50 PM EDT Routine Office Visit OB/Gynecology [address] [place] [address] Denisa Bentley MD [address] [place] [address] 4 WK F/U UNA OB/Gynecology Comment on above: 4 WK F/U UNA Start: 09-28-2024 End: 09-28-2024 ambulatory 09/28/2024 3:45 PM EDT Results Only [place] [facility] [address] [place] [address] 1 hour gct [place] [facility] Comment on above: 1 hour gct Start: 09-07-2024 End: 09-07-2024 Distance Health 09/07/2024 4:30 PM EDT [facility] Psychiatry [address] [place] [id number] Dyan Corey, MUNICIPAL FIREFIGHTER.MULTI MEDIA SPECIALIST [address] [place] [id number] PROVIDER ORDER FOLLOW UP Psychiatry Comment on above: PROVIDER ORDER FOLLO W UP Start: 09-01-2024 End: 09-01-2024 Patient encounter procedure 09/01/2024 4:30 PM EDT Routine Office Visit OB/Gynecology [address] [place] [id number] Emilee Rose APRN.CNM [address] [place] [address] 4 wk F/U UNA OB/Gynecology Comment on above: 4 wk F/U UNA Start: 09-01-2024 End: 12-01-2024 ANEMIA REFLEX PANEL ANEMIA REFLEX PANEL Lab Routine Supervision of high risk in second trimester (HCC) 24 weeks gestation of (HCC) Obesity in ([facility]) Rubella non-immune status, antepartum ([facility]) Anxiety and depression Supervision of high risk in third trimester ([facility]) Obesity affecting in third trimester, unspecified obesity type (HCC) Expected: 09/01/2024, Expires: 12/01/2024 [facility] Comment on above: Expected: 09/01/2024 , Expires: 12/01/2024 Start: 09-01-2024 End: 09-01-2025 GESTATIONAL GLUCOSE SCREEN, 1-HOUR, 50 GRAM, NON-FASTING GESTATIONAL GLUCOSE SCREEN, 1-HOUR, 50 GRAM, NON-FASTING Lab Routine Supervision of high risk in second trimester (HCC) 24 weeks gestation of (HCC) Obesity in ([facility]) Rubella non-immune status, antepartum (HCC) Anxiety and depression Supervision of high risk in third trimester (HCC) Obesity affecting in third trimester, unspecified obesity type (HCC) Screening for diabetes mellitus Expected: 09/01/2024, Expires: 09/01/2025 [facility] Comment on above: Expected: 09/01/2024 [...] obesity type (HCC) Expected: 09/01/2024, Expires: 09/01/2025 [facility] Comment on above: Expected: 09/01/2024 , Expires: 09/01/2025 Start: 08-09-2024 End: 08-09-2024 Patient encounter procedure 08/09/2024 4:00 PM EDT Office Visit OB/Gynecology [address] [place] [address] Emilee Rose APRN.[facility] [address] [place] [address] Annual OB/Gynecology Comment on above: Annual Start: 08-05-2024 End: 08-05-2024 Patient encounter procedure 08/05/2024 4:20 PM EDT Routine Office Visit OB/Gynecology [address] [place] [address] Kendy Collins MD [address] [place] [address] OB Routine OB/Gynecology Comment on above: OB Routine Start: 08-04-2024 End: 08-04-2024 Patient encounter procedure Maternal Medicine Comment on above: Anatomy Scan OB Routine Start: 08-03-2024 End: 08-03-2024 Follow-up encounter 08/03/2024 4:30 PM EDT [facility] Psychiatry [address] [place] [phone] Dyan Corey, MUNICIPAL FIREFIGHTER.MULTI MEDIA SPECIALIST [address] [place] [phone] 2 month follow up Psychiatry Comment on above: 2 month follow up Start: 08-03-2024 End: 08-03-2024 Patient encounter procedure 08/03/2024 4:30 PM EDT Office Visit Psychiatry [address] [place] [phone] Dyan Corey, MUNICIPAL FIREFIGHTER.MULTI MEDIA SPECIALIST [address] [place] [phone] 2 month follow up Psychiatry Comment on above: 2 month follow up Start: 07-07-2024 End: 07-07-2024 Patient encounter procedure OB/Gynecology Comment on above: OB Routine anatomy 16 weeks Start: 06-15-2024 End: 06-15-2025 OBSTETRIC ULTRASOUND WHI OBSTETRIC ULTRASOUND WHI Anc Imaging Routine Obesity in Supervision of high risk in first trimester Expected: 06/15/2024, Expires: 06/15/2025 [facility] Work Phone: Comment on above: Expected: 06/15/2024 , Expires: 06/15/2025 Start: 06-09-2024 End: 06-09-2024 Patient encounter procedure OB/Gynecology Comment on above: 1st OB-03/11/2024 Nuchal US Start: 06-01-2024 End: 06-01-2024 Patient encounter procedure 06/01/2024 4:30 PM EST Office Visit Psychiatry [address] [place] [phone] Dyan Corey, MUNICIPAL FIREFIGHTER.MULTI MEDIA SPECIALIST [address] [place] [phone] 4 week visit medication check Psychiatry Comment on above: 4 week visit medicat ion check Start: 05-12-2024 End: 08-11-2024 ANEMIA REFLEX PANEL ANEMIA REFLEX PANEL Lab Routine Encounter for supervision of normal first in first trimester with uncertain dates, antepartum Expected: 05/12/2024, Expires: 08/11/2024 [facility] Work Phone: Comment on above: Expected: 05/12/2024 , Expires: 08/11/2024 Start: 05-12-2024 End: 08-11-2024 Hemoglobin A1c in Blood HEMOGLOBIN A1C Lab Routine Encounter for supervision of normal first in first trimester with uncertain dates, antepartum Expected: 05/12/2024, Expires: 08/11/2024 [facility] Comment on above: Expected: 05/12/2024 , Expires: 08/11/2024 Start: 05-12-2024 End: 08-11-2024 HEMOGLOBIN EVALUATION CASCADE HEMOGLOBIN EVALUATION CASCADE Lab Routine Encounter for supervision of normal first in first trimester Expected: 05/12/2024, Expires: 08/11/2024 [facility] Comment on above: Expected: 05/12/2024 , Expires: 08/11/2024 Start: 05-12-2024 End: 08-11-2024 Hepatitis B virus surface Ag [Presence] in Serum HEPATITIS B SURFACE ANTIGEN Lab Routine Encounter for supervision of normal first in first trimester with uncertain dates, antepartum Expected: 05/12/2024, Expires: 08/11/2024 [facility] Comment on above: Expected: 05/12/2024 , Expires: 08/11/2024 Start: 05-12-2024 End: 08-11-2024 Hepatitis C virus Ab [Presence] in Serum HEPATITIS C ANTIBODY IA WITH CONFIRMATION Lab Routine Encounter for supervision of normal first in first trimester with uncertain dates, antepartum Expected: 05/12/2024, Expires: 08/11/2024 [facility] Comment on above: Expected: 05/12/2024 , Expires: 08/11/2024 Start: 05-12-2024 End: 08-11-2024 HIV 1+2 Ab [Presence] in Serum or Plasma by Immunoassay HIV 1/2 COMBO WITH REFLEX TO DIFFERENTIATION Lab Routine Encounter for supervision of normal first in first trimester with uncertain dates, antepartum Expected: 05/12/2024, Expires: 08/11/2024 [facility] Comment on above: Expected: 05/12/2024 , Expires: 08/11/2024 Start: 05-12-2024 End: 05-12-2025 NUCHAL TRANSLUCENCY WHI NUCHAL TRANSLUCENCY WHI Anc Imaging Routine Encounter for supervision of normal first in first trimester with uncertain dates, antepartum Expected: 05/12/2024, Expires: 05/12/2025 [facility] Comment on above: Expected: 05/12/2024 , Expires: 05/12/2025 Start: 05-12-2024 End: 05-12-2025 OBSTETRIC ULTRASOUND WHI OBSTETRIC ULTRASOUND WHI Anc Imaging Routine Encounter for supervision of normal first in first trimester with uncertain dates, antepartum Expected: 05/12/2024, Expires: 05/12/2025 [facility] Comment on above: Expected: 05/12/2024 , Expires: 05/12/2025 Start: 05-12-2024 End: 08-11-2024 RUBELLA IGG ANTIBODY RUBELLA IGG ANTIBODY Lab Routine Encounter for supervision of normal first in first trimester with uncertain dates, antepartum Expected: 05/12/2024, Expires: 08/11/2024 [facility] Comment on above: Expected: 05/12/2024 , Expires: 08/11/2024 Start: 05-12-2024 End: 08-11-2024 SYPHILIS TREPONEMAL W/REFLEX SYPHILIS TREPONEMAL W/REFLEX Lab Routine Encounter for supervision of normal first in first trimester with uncertain dates, antepartum Expected: 05/12/2024, Expires: 08/11/2024 [facility] Comment on above: Expected: 05/12/2024 , Expires: 08/11/2024 Start: 05-12-2024 End: 08-11-2024 TYPE + SCREEN TYPE + SCREEN Blood Bank Routine Encounter for supervision of normal first in first trimester with uncertain dates, antepartum Expected: 05/12/2024, Expires: 08/11/2024 [facility] Comment on above: Expected: 05/12/2024 , Expires: 08/11/2024 Start: 05-12-2024 End: 05-12-2024 Patient encounter procedure 05/12/2024 1:00 PM EST Initial Office Visit OB/Gynecology [address] [place] [address] Emilee Rose APRN.CN [address] [place] [address] 1st OB-03/11/2024 OB/Gynecology Comment on above: 1st OB-03/11/2024 Start: 03-29-2024 End: 03-29-2024 Follow-up encounter 03/29/2024 4:30 PM EST [facility] Psychiatry [address] [place] [phone] Dyan Corey APRN.MULTI MEDIA SPECIALIST [address] [place] [phone] 3 month follow up Psychiatry Comment on above: 3 month follow up Start: 03-19-2024 End: 03-19-2024 Follow-up encounter 03/19/2024 4:30 PM EST [facility] [address] [place] [phone] Dyan Corey APRN.MULTI MEDIA SPECIALIST [address] [place] [phone] 3 month follow up Psychiatry Comment on above: 3 month follow up Start: 01-27-2024 End: 04-27-2024 CBC W Auto Differential panel - Blood [facility] Work Phone: Comment on above: Expected: 01/27/2024 , Expires: 04/27/2024 Start: 01-27-2024 End: 04-27-2024 Comprehensive metabolic 2000 panel - Serum or Plasma [facility] Comment on above: Expected: 01/27/2024 , Expires: 04/27/2024 Start: 01-27-2024 End: 04-27-2024 Thyrotropin [Units/volume] in Serum or Plasma [facility] Comment on above: Expected: 01/27/2024 , Expires: 04/27/2024 Start: 01-04-2024 Covid-19 Vaccine ( season) Covid-19 Vaccine ( season) [facility] Start: 01-04-2024 Influenza vaccination C [facility] Start: 12-12-2023 End: 12-12-2023 Follow-up encounter 12/12/2023 4:30 PM EDT [facility] [address] [place] [address] Dyan Corey, MUNICIPAL FIREFIGHTER.MULTI MEDIA SPECIALIST [address] [place] [address] 3 MONTH FOLLOW UP Psychiatry Comment on above: 3 MONTH FOLLOW UP Start: 12-10-2023 End: 12-10-2023 ambulatory 12/10/2023 2:40 PM EDT Procedure [facility] [address] [place], [place] [id number] Bilateral hand pain [M79.641, M79.642] [facility] Comment on above: Bilateral hand pain [M79.641, M79.642] Start: 09-05-2023 End: 09-05-2023 Follow-up encounter 09/05/2023 4:30 PM EDT [facility] Psychiatry [address] [place] [address] Dyan Corey, MUNICIPAL FIREFIGHTER.MULTI MEDIA SPECIALIST [address] [place] [address] 2 MONTH FOLLOW UP Psychiatry Comment on above: 2 MONTH FOLLOW UP Start: 01-03-2023 Covid-19 Vaccine ( season) Covid-19 Vaccine ( season) [facility] Start: 01-03-2023 Influenza vaccination C [facility] Start: 02-17-2022 End: 07-18-2022 Basic metabolic 2000 panel - Serum or Plasma BASIC METABOLIC PNL Lab Routine Hypercalcemia Expected: 02/17/2022, Expires: 07/18/2022 [facility] Work Phone: Comment on above: Expected: 02/17/2022 , Expires: 07/18/2022 Start: 01-16-2022 End: 03-18-2022 Bacteria identified in Urine by Culture [facility] Work Phone: Comment on above: Expected: 01/16/2022 , Expires: 03/18/2022 Start: 01-16-2022 End: 03-18-2022 Nuclear Ab [Presence] in Serum by Immunoassay [facility] Work Phone: Comment on above: Expected: 01/16/2022 , Expires: 03/18/2022 Start: 01-03-2022 Influenza vaccination [facility] Start: 07-26-2021 End: 09-25-2021 CBC panel - Blood by Automated count [facility] Work Phone: Comment on above: Expected: 07/26/2021 , Expires: 09/25/2021 Start: 07-26-2021 End: 09-25-2021 Comprehensive metabolic 2000 panel - Serum or Plasma [facility] Work Phone: Comment on above: Expected: 07/26/2021 , Expires: 09/25/2021 Start: 07-26-2021 End: 09-25-2021 Thyrotropin [Units/volume] in Serum or Plasma [facility] Work Phone: Comment on above: Expected: 07/26/2021 , Expires: 09/25/2021 Start: 07-26-2021 End: 09-25-2021 VITAMIN B12 BLOOD [facility] Work Phone: Comment on above: Expected: 07/26/2021 , Expires: 09/25/2021 Start: 07-26-2021 End: 09-25-2021 VITAMIN D 25 HYDROXY [facility] Work Phone: Comment on above: Expected: 07/26/2021 , Expires: 09/25/2021 Start: 01-03-2021 Influenza vaccination INFLUENZA (#1) [facility] Start: 07-05-2016 PAP TESTING PAP TESTING [facility] Start: 07-05-2013 HEPATITIS C SCREENING HEPATITIS C SC REENING [facility] Start: 07-05-2013 HIV SCREENING HIV SCREENING [facility] Start: 07-05-2009 PEDS TO ADULT TRANSITION ANNUAL ASSESSMENT PEDS TO ADULT TRANSITION ANNUAL ASSESSMENT [facility] Start: 2007 PEDS TO ADULT TRANSITION INITIAL DISCUSSION PEDS TO ADULT TRANSITION INITIAL DISCUSSION [facility] Start: 07-05-2006 HPV VACCINE (1 - 2-d ose series) HPV VACCINE (1 - 2-dose series) [facility] Start: 07-05-2000 COVID-19 VACCINE (#1) COVID-19 VACCI NE (#1) [facility] Start: 07-05-2000 COVID-19 VACCINE (1) COVID-19 VACCIN E (1) [facility] Start: 01-06-1996 COVID-19 VACCINE (#1) COVID-19 VACCI NE (#1) [facility] Bacteria identified in Urine by Culture URINE CULTURE Microbiology Routine Low back pain, unspecified back pain laterality, unspecified chronicity, unspecified whether sciatica present 06/16/2023 10:12 AM [facility] Work Phone: Bacteria identified in Urine by Culture BACTERIAL CULTURE, URINE Microbiology Routine Encounter for supervision of normal first in first trimester with uncertain dates, antepartum 05/12/2024 2:06 PM [facility] BACTERIAL VAGINOSIS NAAT BACTERIAL VAGINOSIS NAAT Lab Routine Encounter for supervision of normal first in first trimester with uncertain dates, antepartum 05/12/2024 2:06 PM [facility] AB/TRICHOMONAS NAAT AB/TRICHOMONAS NAAT Lab Routine Encounter for supervision of normal first in first trimester with uncertain dates, antepartum 05/12/2024 2:06 PM [facility] Chlamydia trachomatis+Neisseria gonorrhoeae DNA [Presence] in Unspecified specimen by TELMA with probe detection GONORRHEA/CHLAMYDIA NAAT Lab Routine Encounter for supervision of normal first in first trimester with uncertain dates, antepartum 05/12/2024 2:06 PM [facility] End: 12-24-2023 EMG(NEURO/NI) EMG(NEURO/NI) EMG Routine Bilateral hand pain 1 Occurrences starting 12/23/2022 until 12/24/2023 [facility] Work Phone: Comment on above: 1 Occurrences starti ng 12/23/2022 until 12/24/2023 End: 08-22-2025 nonstress test NON-STRESS TEST Procedures Routine Supervision of high risk in third trimester (HCC) Obesity affecting in third trimester, unspecified obesity type (HCC) Once per week for 5 Occurrences starting 09/01/2024 until 08/22/2025 [facility] Work Phone: Comment on above: Once per week for 5 Occurrences starting 09/01/2024 until 08/22/2025 End: 08-16-2025 OBSTETRIC ULTRASOUND WHI OBSTETRIC ULTRASOUND WHI Anc Imaging Routine Supervision of high risk in third trimester (HCC) Obesity affecting in third trimester, unspecified obesity type (HCC) Once per month for 3 Occurrences starting 09/01/2024 until 08/16/2025 [facility] Comment on above: Once per month for 3 Occurrences starting 09/01/2024 until 08/16/2025 PAP FLUID CERVICAL SCREENING PAP FLUID CERVICAL SCREENING Lab Routine Screening for cervical cancer 10/31/2021 10:03 AM EDT [facility] Work Phone: End: 01-16-2023 PVR ANK PRESS [facility] PVR ANK PRESS [facility] Vascular Lab Routine Numbness and tingling Cold extremities 1 Occurrences starting 01/16/2022 until 01/16/2023 [facility] Work Phone: Comment on above: 1 Occurrences starti ng 01/16/2022 until 01/16/2023 ROUTINE, GR OUP B STREPTOCOCCUS BY PCR ROUTINE, GROUP B STREPTOCOCCUS BY PCR Microbiology Routine 35 weeks gestation of (HCC) Supervision of high risk in third trimester (HCC) Obesity affecting in third trimester, unspecified obesity type (HCC) Ordered: 11/17/2024 [facility] Work Phone: Comment on above: Ordered: 11/17/2024 End: 07-15-2024 US Kidney - bilateral and Urinary bladder US KIDNEY/BLADDER Radiology Routine Low back pain, unspecified back pain laterality, unspecified chronicity, unspecified whether sciatica present 1 Occurrences starting 06/16/2023 until 07/15/2024 [facility] Work Phone: Comment on above: 1 Occurrences starti ng 06/16/2023 until 07/15/2024 US Kidney - bilatera l and Urinary bladder US KIDNEY/BLADDER Radiology Routine Low back pain, unspecified back pain laterality, unspecified chronicity, unspecified whether sciatica present 06/26/2023 2:52 PM [facility] Work Phone: [facility] Immunizations Immunization Date Immunization Notes Care Provider Fa [facility] 09-28-2024 tetanus toxoid, reduced diphtheria toxoid, and acellular pertussis vaccine, adsorbed Denisa Bentley MD Work Phone: [facility] 01-21-2019 influenza, injectabl e, quadrivalent, contains preservative Tres Pugh MD Work Phone: [facility] 01-21-2019 tetanus toxoid, reduced diphtheria toxoid, and acellular pertussis vaccine, adsorbed Tres Pugh MD Work Phone: [facility] 01-21-2019 influenza virus vaccine, unspecified formulation Светлана Srinivasan APRN.CNP Work Phone: [facility] 02-17-2018 influenza, injectabl e, quadrivalent, preservative free Tres Pugh MD Work Phone: [facility] 01-02-2017 influenza, injectabl e, quadrivalent, preservative free Tres Pugh MD Work Phone: [facility] 07-11-2014 tetanus toxoid, reduced diphtheria toxoid, and acellular pertussis vaccine, adsorbed Tres Pugh MD Work Phone: [facility] 02-09-2010 influenza virus vaccine, live, attenuated, for intranasal use Tres Pugh MD Work Phone: [facility] Work Phone: 02-09-2010 tetanus toxoid, reduced diphtheria toxoid, and acellular pertussis vaccine, adsorbed Tres Pugh MD Work Phone: [facility] Work Phone: 03-21-2009 novel [id number], all formulations Tres Pugh MD Work Phone: [facility] 02-22-2009 influenza virus vaccine, live, attenuated, for intranasal use Tres Pugh MD Work Phone: [facility] Work Phone: 06-26-2000 diphtheria, tetanus toxoids and acellular pertussis vaccine Ters Pugh MD Work Phone: [facility] 06-26-2000 measles, mumps and rubella virus vaccine Tres Pugh MD Work Phone: [facility] 06-26-2000 poliovirus vaccine, inactivated Tres Pugh MD Work Phone: [facility] 09-04-1997 Chicken Pox (disease) Jordan Pugh MD Work Phone: [facility] Work Phone: 01-05-1997 diphtheria, tetanus toxoids and acellular pertussis vaccine Tres Pugh MD Work Phone: [facility] 01-05-1997 haemophilus influenz ae type b vaccine, HbOC conjugate Tres Pugh MD Work Phone: [facility] 01-05-1997 measles, mumps and rubella virus vaccine Tres Pugh MD Work Phone: [facility] 01-05-1997 poliovirus vaccine, inactivated Tres Pugh MD Work Phone: [facility] 01-12-1996 diphtheria, tetanus toxoids and acellular pertussis vaccine Tres Pugh MD Work Phone: [facility] 01-12-1996 haemophilus influenz ae type b vaccine, HbOC conjugate Trse Pugh MD Work Phone: [facility] 01-12-1996 hepatitis B vaccine, pediatric or pediatric/adolescent dosage Tres Pugh MD Work Phone: [facility] 1995 diphtheria, tetanus toxoids and acellular pertussis vaccine Tres Pugh MD Work Phone: [facility] 1995 haemophilus influenz ae type b vaccine, HbOC conjugate Tres Pugh MD Work Phone: [facility] 1995 hepatitis B vaccine, pediatric or pediatric/adolescent dosage Tres Pugh MD Work Phone: [facility] 1995 poliovirus vaccine, inactivated Tres Pugh MD Work Phone: [facility] 1995 diphtheria, tetanus toxoids and acellular pertussis vaccine Tres Pugh MD Work Phone: [facility] 1995 haemophilus influenz ae type b vaccine, HbOC conjugate Tres Pugh MD Work Phone: [facility] 1995 hepatitis B vaccine, pediatric or pediatric/adolescent dosage Tres Pugh MD Work Phone: [facility] 1995 poliovirus vaccine, inactivated Tres Pugh MD Work Phone: [facility] Payers Date Payer Category Payer Self-pay 2022 Private Health Insurance [id number] 2021 Private Health Insurance AET[employer] A ETNA CHOICE POS II [id number] 2021-Present [phone] [address] [place] [address] POS [id number] 2021 Private Health Insurance [id number] 2020 Unknown [id number] 2016 Unknown [id number] Unknown [id number] Unknown [id number] Unknown [id number] Social History Date Type Detail Facility [facility]: [facility] Start: 06-20-2021 End: 07-26-2021 Alcohol intake Not Asked [facility] Start: 02-08-2020 End: 04-16-2022 History SDOH Alcohol Frequency 2 [facility] Start: 02-08-2020 End: 06-20-2021 History SDOH Alcohol Std Drinks 1 [facility] Start: 01-21-2019 History SDOH Alcohol Comment occasional [facility] Start: 02-08-2020 End: 04-16-2022 History SDOH Social Connections Taoism 3 [facility] Start: 02-08-2020 History SDOH Physica l Activity DPW 5 [facility] Start: 02-08-2020 History SDOH Physica l Activity MPS 15 [facility] Start: 1995 Sex Assigned At Female C [facility] Start: 07-16-2021 End: 02-13-2022 Exposure to SARS-CoV-2 (event) Not sure [facility] Start: 09-26-2021 End: 05-06-2024 Alcohol intake Current drinker of alcohol (finding) [facility] Start: 09-26-2021 History SDOH Alcohol Comment rare [facility] Start: 01-16-2022 Tobacco use and exposure Smoke less tobacco non-user [facility] Start: 04-16-2022 History SDOH Physica l Activity MPS 4 [facility] Start: 04-15-2022 End: 08-03-2024 History of Social function [facility] Start: 04-15-2022 End: 08-03-2024 Social connection and isolation panel [facility] Do you belong to any clubs or organizations such as uatsdin groups, unions, fraternal or athletic groups, or school groups? Yes [facility] Are you now , , , , never or living with a partner? [facility] How often to you hav e a drink containing alcohol? Monthly or less [facility] How many standard dr inks containing alcohol do you have on a typical day? 1 or 2 [facility] How often do you hav e 6 or more drinks on 1 occasion? Never [facility] How hard is it for y ou to pay for the very basics like food, housing, medical care, and heating Not very hard [facility] Adult Depression Scr eening Assessment 2 [facility] Do you feel stress - tense, restless, nervous, or anxious, or unable to sleep at night because your mind is troubled all the time - these days [OSQ] To some extent [facility] (I/We) worried wheth er (my/our) food would run out before (I/we) got money to buy more. Never true [facility] In the past 12 month s, was there a time when you were not able to pay the mortgage or rent on time? No [facility] Start: 01-13-2019 Gender identity Identifies as female gender (finding) [facility] Start: 01-13-2019 Sexual orientation Heterosexual (fin ding) [facility] Are you now , , , , never or living with a partner? Refused [facility] Do you feel stress - tense, restless, nervous, or anxious, or unable to sleep at night because your mind is troubled all the time - these days [OSQ] Not at all [facility] (I/We) worried wheth er (my/our) food would run out before (I/we) got money to buy more. DK or Refused [facility] Start: 05-12-2024 End: 09-28-2024 Alcoholic beverage intake Ex-drinker (finding) [facility] Start: 03-25-2024 [facility] Goals Date Patient Goal Desired Activity /State Personal health goal Clinical Notes 07-17-2021 to 12-03-2024 Leo Reynolds - 12/02/2024 8:16 AM Esther Wheeler MD - 11/30/2024 4:08 PM EDTPrenatal Quick Notes - Esther Milligan MD - 11/30/2024 4:06 PM EDTPatient Instructions Note Date & Type Note Facility 12-03-2024 Note HNO ID: [id number] Author: LEO REYNOLDS, ? Service: ? Author Type: Patient Batchmaker Type: Progress Notes Filed: 12/03/2024 07:23 Note Text: POPULATION HEALTH NAVIGATION OUTREACH Action/FYI Responded via my chart added tester operator helper Reason for Outreach Medicaid OB/Peds Care Gaps due: N/A Patient Contacted: Spoke to patient/parent/or legal guardian Patient identified by name and : Yes Medicaid OB/Peds actions taken: [place] Form[employer] Machine Operator added Navigation Signature: Leo Reynolds Population Health Navigator December 03, 2024 7:22 AM [facility] 12-02-2024 Note HNO ID: [id number] Author: LEO REYNOLDS, ? Service: ? Author Type: Patient Batchmaker Type: Progress Notes Filed: 12/02/2024 08:18 Note Text: POPULATION HEALTH NAVIGATION OUTREACH Action/FYI Left message to add tester operator helper to OB provider field, My chart sent Reason for Outreach Medicaid OB/Peds Care Gaps due: N/A Patient Contacted: Unable or unnecessary to reach patient: Unable to reach patient Left message Utanhart message sent Navigation Signature: Leo Reynolds Population Health Navigator December 02, 2024 8:17 AM [facility] 12-02-2024 History of Presen t illness Narrative POPULATION HEALTH NAVIGATION OUTREACH Action/FYI Left message to add tester operator helper to OB provider field, My chart sent Reason for Outreach Medicaid OB/Peds Care Gaps due: N/A Patient Contacted: Unable or unnecessary to reach patient: Unable to reach patient Left message Utanhart message sent Navigation Signature: Leo Reynolds Population Health Navigator December 02, 2024 8:17 AM documented in this encounter [facility] 12-02-2024 Note Patient Outreach (EVETTE TNAV) BULLHERMINIA Pinon ([id number]) 1995 F Date Time Provider Department 12/02/24 LEO REYNOLDS During your visit today, we recorded the following information about you: Leo Reynolds 12/02/2024 8:18 AM Signed POPULATION HEALTH NAVIGATION OUTREACH Action/FYI Left message to add tester operator helper to OB provider field, My chart sent Reason for Outreach Medicaid OB/Peds Care Gaps due: N/A Patient Contacted: Unable or unnecessary to reach patient: Unable to reach patient Left message [employer] message sent Navigation Signature: Leo Reynolds [employer] Health Navigator December 02, 2024 8:17 AM Leo Reynolds 12/03/2024 7:23 AM Signed POPULATION HEALTH NAVIGATION OUTREACH Action/FYI Responded via my chart added tester operator helper Reason for Outreach Medicaid OB/Peds Care Gaps due: N/A Patient Contacted: Spoke to patient/parent/or legal guardian Patient identified by name and : Yes Medicaid OB/Peds actions taken: /[employer] Form[employer] Machine Operator added Navigation Signature: Leo Reynolds Population Health [...] med list, 07/31/2007. Chari Gan LPN 06/28 smh on Prozac and [...] Encounter Status:Closed by LEO REYNOLDS on 12/02/24 [facility] 11-30-2024 Note HNO ID: [id number] Author: ESTHER MILLIGAN MD Service: ? Author [...] I and Reactive SIGNATURE: Esther Acosta MD [facility] 11-30-2024 History of Presen t [...] Esther Acosta MD documented in this encounter [facility] 11-30-2024 Progress note Formatting of [...] simplex Continue acylcovir 37 weeks gestation of ([facility]) Kick counts and labor reviewed RTO weekly Orders: URINE OB DIP B/O Esther Acosta MD [facility] 11-30-2024 Miscellaneous Notes DM-Pt doing [...] Esther Acosta MD documented in this encounter [facility] 11-30-2024 Instructions Alvino Falcon MA - 11/30/2024 3:22 PM EDT SEQUENTIAL SCREENINGS The [facility] offers sequential screenings for women [...] It will require an appointment with our robot technician. This is not an ultrasound performed [...] the above symptoms, contact our office at [phone] and ask to speak with a nurse. After hours, you can call doctors registry at [phone] OR call [facility] at [phone] and ask to have the doctor sales and customer relations rep paged. If you consider this an emergency, dial 9-1-1 or go to your nearest emergency department. NEED HELP? Are you dealing with a violent or abusive relationship? Are you a victim of rape or sexual assult? Call [facility] ([place]) 24 hour Crisis Hotline: 945.619.7693 or 485-537-5761. MANUAL Your Guide to a Healthy manual is now on-line. Visit [email or web address] to download your free copy documented in this encounter [facility] 11-25-2024 Note HNO ID: [id number] Author: KENDY COLLINS MD Service: ? Author [...] Irregular Interpretation: Reactive SIGNATURE: Kendy Collins DO [facility] 11-25-2024 History of Presen t [...] Kendy Collins DO documented in this encounter [facility] 11-25-2024 Progress note Formatting of t his note might be different from the original. SW- pt doing well. No ctx, vb, lof. Good FM PE: Gen- NAD, well appearing Abd- Soft, gravid, NT See flowsheet A/p 37 wk gestation - H/o HSV: Cont Acyclovir - Obesity: NST reactive today - RTO 1 wk Kendy Collins DO [facility] 11-25-2024 Miscellaneous Notes SW- pt doing well. No ctx, vb, lof. Good FM PE: Gen- NAD, well appearing Abd- Soft, gravid, NT See flowsheet A/p 37 wk gestation - H/o HSV: Cont Acyclovir - Obesity: NST reactive today - RTO 1 wk Kendy Collins DO documented in this encounter [facility] 11-25-2024 Instructions Ysabel Zamora MA - 11/25/2024 3:42 PM EDT SEQUENTIAL SCREENINGS The [facility] offers sequential screenings for women [...] It will require an appointment with our robot technician. This is not an ultrasound performed [...] the above symptoms, contact our office at [phone] and ask to speak with a nurse. After hours, you can call doctors registry at [phone] OR call [facility] at [phone] and ask to have the doctor sales and customer relations rep paged. If you consider this an emergency, dial or go to your nearest emergency department. NEED HELP? Are you dealing with a violent or abusive relationship? Are you a victim of rape or sexual assult? Call [facility] ([place]) 24 hour Crisis Hotline: 595.357.7397 or 661-680-2686. MANUAL Your Guide to a Healthy manual is now on-line. Visit [email or web address] to download your free copy documented in this encounter [facility] 11-18-2024 Note Indication Evaluation of [...] 1 oz EFW by: Hadlock (HC-AC-FL) Extended Manager Materials Management 3.9 mm Extremities / Bony Struc FL [...] 12/10 ASSESSMENT/PLAN: 1. 35 weeks gestation of ([facility]) - ICD9: V22.2, ICD10: Z3A.35 (primary diagnosis) - URINE OB DIP B/O - ROUTINE, GROUP B STREPTOCOCCUS BY PCR 2. Supervision of high risk in third trimester ([facility]) - ICD9: V23.9, ICD10: O09.93 - URINE OB DIP B/O - ROUTINE, GROUP B STREPTOCOCCUS BY PCR 3. Obesity affecting in third trimester, unspecified obesity type ([facility]) - ICD9: 649.13, ICD10: O99.213 NSTs weekly - URINE OB DIP B/O - ROUTINE, GROUP B STREPTOCOCCUS BY PCR Denisa Bentley MD [facility] 11-17-2024 Miscellaneous Notes S: Herminia [...] 12/10 ASSESSMENT/PLAN: 1. 35 weeks gestation of ([facility]) - ICD9: V22.2, ICD10: Z3A.35 (primary diagnosis) [...] Denisa Bentley MD documented in this encounter [facility] 11-17-2024 Instructions Ysabel Zamora MA - 11/17/2024 4:17 PM EDT SEQUENTIAL SCREENINGS The [facility] offers sequential screenings for women [...] It will require an appointment with our robot technician. This is not an ultrasound performed [...] the above symptoms, contact our office at [phone] and ask to speak with a nurse. After hours, you can call doctors registry at [phone] OR call [facility] at [phone] and ask to have the doctor sales and customer relations rep paged. If you consider this an emergency, dial 01-03- or go to your nearest emergency department. NEED HELP? Are you dealing with a violent or abusive relationship? Are you a victim of rape or sexual assult? Call [facility] ([place]) 24 hour Crisis Hotline: 187.737.8907 or 089-502-7466. MANUAL Your Guide to a Healthy manual is now on-line. Visit [email or web address] to download your free copy documented in this encounter [facility] 11-15-2024 Telephone encounter Note 35w4d Requested Prescriptions Pending Prescriptions Disp Refills ondansetron (ZOFRAN) 4 mg tablet 60 tablet 1 Sig: Take 1 tablet by mouth every 6 hours as needed for nausea/vomiting. Cecilia Angel RN [facility] 11-15-2024 Miscellaneous Notes 35w4d Requested Prescriptions Pending Prescriptions Disp Refills ondansetron (ZOFRAN) 4 mg tablet 60 tablet 1 Sig: Take 1 tablet by mouth every 6 hours as needed for nausea/vomiting. Cecilia Angel RN documented in this encounter [facility] 11-02-2024 Progress note Formatting of [...] F32.A stable 4. Rubella non-immune status, antepartum ([facility]) - ICD9: 646.83, V15.83, ICD10: O09.899, Z28.39 MMR after delivery 5. 33 weeks gestation of ([facility]) - ICD9: V22.2, ICD10: Z3A.33 Denisa Bentley MD [facility] 11-02-2024 Miscellaneous Notes S: Herminia [...] Supervision of high risk in third trimester ([facility]) - ICD9: V23.9, ICD10: O09.93 (primary diagnosis) 2. Obesity affecting in third trimester, unspecified obesity type ([facility]) - ICD9: 649.13, ICD10: O99.213 NSTs at 36 weeks Growth q 4 3. Anxiety and depression - ICD9: 300.00, 311, ICD10: F41.9, F32.A stable 4. Rubella non-immune status, antepartum ([facility]) - ICD9: 646.83, V15.83, ICD10: O09.899, Z28.39 MMR after delivery 5. 33 weeks gestation of ([facility]) - ICD9: V22.2, ICD10: Z3A.33 Denisa Bentley MD documented in this encounter [facility] 11-02-2024 Instructions Minnie Morris MA - 11/02/2024 3:45 PM EDT SEQUENTIAL SCREENINGS The [facility] offers sequential screenings for women [...] It will require an appointment with our robot technician. This is not an ultrasound performed [...] the above symptoms, contact our office at [phone] and ask to speak with a nurse. After hours, you can call doctors registry at [phone] OR call [facility] at [phone] and ask to have the doctor sales and customer relations rep paged. If you consider this an emergency, dial 5-1-4 or go to your nearest emergency department. NEED HELP? Are you dealing with a violent or abusive relationship? Are you a victim of rape or sexual assult? Call [facility] ([place]) 24 hour Crisis Hotline: 483.543.7545 or 806-688-2000. MANUAL Your Guide to a Healthy manual is now on-line. Visit [email or web address] to download your free copy documented in this encounter [facility] 10-22-2024 Progress note Formatting of t his note might be different from the original. Anatomy ultrasound reviewed. No abnormalities identified. Follow up as clinically indicated. Please place copy in ob chart. Gail Moreno MD [facility] Work Phone: 06-20-2025 Miscellaneous Notes Anatomy ultrasound reviewed. No abnormalities identified. Follow up as clinically indicated. Please place copy in ob chart. Gail Moreno MD documented in this encounter [facility] 10-22-2024 Note Indication Evaluation of [...] 9 oz EFW by: Hadlock (HC-AC-FL) Extended Manager Materials Management 4.4 mm Extremities / Bony Struc FL [...] M.D. [facility] 10-21-2024 Note HNO ID: [id number] Author: KENDY COLLINS MD Service: ? Author Type: Physician Type: Progress Notes Filed: 10/21/2024 16:42 Note Text: SW- Pt doing well. Some nausea. No ctx, vb, lof. Good FM PE: Gen- NAD, well appearing Abd- Gravid See flowsheet A/p 32 wk gestation - Scheduled for classes at [facility] - [facility] ped - Obesity: Growth US today and final report pending. Repeat growth 36 weeks and weekly NST's - RTO 2 wks Kendy Collins DO [facility] 10-21-2024 History of Presen t illness Narrative SW- Pt doing well. Some nausea. No ctx, vb, lof. Good FM PE: Gen- NAD, well appearing Abd- Gravid See flowsheet A/p 32 wk gestation - Scheduled for classes at [facility] - Has ped - Obesity: Growth US today and final report pending. Repeat growth 36 weeks and weekly NST's - RTO 2 wks Kendy Collins DO documented in this encounter [facility] 10-13-2024 Progress note Formatting of [...] or sooner if needed Nayeli Bowman APRN.CNM [facility] 10-13-2024 Miscellaneous Notes S: Herminia [...] Nayeli Bowman APRN.CNM documented in this encounter [facility] 10-13-2024 Instructions Mt Baron MA - 10/13/2024 3:56 PM EDT SEQUENTIAL SCREENINGS The [facility] offers sequential screenings for women [...] It will require an appointment with our robot technician. This is not an ultrasound performed [...] the above symptoms, contact our office at [phone] and ask to speak with a nurse. After hours, you can call doctors registry at [phone] OR call [facility] at [phone] and ask to have the doctor sales and customer relations rep paged. If you consider this an emergency, dial 9-2 or go to your nearest emergency department. NEED HELP? Are you dealing with a violent or abusive relationship? Are you a victim of rape or sexual assult? Call [facility] ([place]) 24 hour Crisis Hotline: 135.697.3617 or 242-343-2932. MANUAL Your Guide to a Healthy manual is now on-line. Visit [email or web address] to download your free copy documented in this encounter [facility] 10-06-2024 Telephone encounter Note Refill request received via [employer]. Patient states she will run out of medication tomorrow. Patient 29w6d, last seen 09/28/24. Next appointment on 10/13/24. Ita Hayden RN [facility] 10-06-2024 Miscellaneous Notes Refill request received via [employer]. Patient states she will run out of medication tomorrow. Patient 29w6d, last seen 09/28/24. Next appointment on 10/13/24. Ita Hayden RN documented in this encounter [facility] 09-28-2024 Progress note Formatting of [...] ICD10: Z23 TDAP today Denisa Bentley MD [facility] 09-28-2024 Miscellaneous Notes S: Herminia [...] Denisa Bentley MD documented in this encounter [facility] 09-28-2024 Note HNO ID: [id number] Author: ALVINO FALCON MA Service: ? Author Type: Brazing Machine Operator Automatic Type: Progress Notes Filed: 09/28/2024 16:49 Note [...] severely ill: Yes Patient denies history of Guillain-Cutler Syndrome (a severe paralytic illness): Yes Tdap Adacel injection was given without incident. See immunizations for details of immunizations administered today. VIS sheet provided: Yes Provider Mc was present in office at time of injection. Alvino Falcon MA [facility] 09-28-2024 History of Presen t [...] severely ill: Yes Patient denies history of Guillain-Cutler Syndrome (a severe paralytic illness): Yes Tdap Adacel injection was given without incident. See immunizations for details of immunizations administered today. VIS sheet provided: Yes Provider Mc was present in office at time of injection. Alvino Falcon MA documented in this encounter [facility] 09-28-2024 Instructions Alvino Falcon MA - 09/28/2024 3:41 PM EDT SEQUENTIAL SCREENINGS The [facility] offers sequential screenings for women [...] It will require an appointment with our robot technician. This is not an ultrasound performed [...] the above symptoms, contact our office at [phone] and ask to speak with a nurse. After hours, you can call doctors registry at [phone] OR call [facility] at [phone] and ask to have the doctor sales and customer relations rep paged. If you consider this an emergency, dial 9-1-8 or go to your nearest emergency department. NEED HELP? Are you dealing with a violent or abusive relationship? Are you a victim of rape or sexual assult? Call [facility] ([place]) 24 hour Crisis Hotline: 489.652.1449 or 355-374-6987. MANUAL Your Guide to a Healthy manual is now on-line. Visit [email or web address] to download your free copy documented in this encounter [facility] 09-07-2024 Instructions Dyan Corey, MUNICIPAL FIREFIGHTER.MULTI MEDIA SPECIALIST - 09/07/2024 5:55 PM EDT We discussed [...] during , visit [email or web address] or consult your tester operator helper. They can provide specific guidance on what [...] --call the National Suicide Prevention Lifeline at 983 (067-163-2811) --text the Crisis Text Line (text HOME to 226780) --call 911 and let them know you are having a mental health crisis or go to your nearest Emergency Room for stabilization. --You can also call Mobile Crisis at [phone]. -- You may call the department appointment line at [phone] to schedule your appointment. -- Please call my nurse at [phone] or send me a message in [employer] with any questions or concerns between appointments. documented in this encounter [facility] 09-07-2024 Note HNO ID: [id number] Author: DYAN COREY APRN.MULTI MEDIA SPECIALIST Service: ? Author Type: Nurse Practitioner Type: [...] visit. Either the patient or their legal physician relations representative has been informed of the risks and benefits of -- and alternatives to -- treatment through a remote evaluation and consents to proceed with the evaluation remotely. Recording using 2houses software for draft documentation of the visit was discussed with the patient/authorized physician relations representative; all questions welcomed and answered. Patient/authorized physician relations representative agreed to proceed CC: Outpatient follow-up [...] improved PATIENT DATA: Generalized Anxiety Disorder Scale (SUKWHINDER-7) 05/31/2024 07/28/2024 09/05/2024 SUKHWINDER - 7 SCORES [...] visit. ROS: Se (more content not included)... [facility] 09-07-2024 History of Presen t [...] visit. Either the patient or their legal physician relations representative has been informed of the risks and benefits of -- and alternatives to -- treatment through a remote evaluation and consents to proceed with the evaluation remotely. Recording using 2houses software for draft documentation of the visit was discussed with the patient/authorized physician relations representative; all questions welcomed and answered. Patient/authorized physician relations representative agreed to proceed CC: Outpatient follow-up [...] GGT Vitamin B12: No components found for: [id number] Vitamin D, Total: No results found for: [...] Sharif, et al. 2017 Guidelines of the [place] [employer] for the Diagnosis and Management [...] (primary encounter diagnosis) 25 weeks gestation of ([facility]) GAF: -80-71 If symptoms are present, [...] before delivery. 2. 25 weeks gestation of ([facility]) (Z3A.25) Patient is in the second trimester, [...] which included preparing to see the patient, cnle-po-cvqf patient care, completing clinical documentation, obtaining and/or reviewing separately obtained history, counseling and educating the patient/family/caregiver, and independently interpreting results (not separately reported). ADD ON PSYCHOTHERAPY CODE : No SIGNATURE: Dyan Corey APRN.CNP PATIENT NAME: Herminia Pinon [facility] DATE: September 07, 2024 TIME: 5:53 PM documented in this encounter [facility] 09-01-2024 Note Addended by: EMILEE ROSE on: 09/01/2024 04:37 PM Modules accepted: Orders [facility] 09-01-2024 Miscellaneous Notes Addended by: [...] Emilee Rose APRN.CNM documented in this encounter [facility] 09-01-2024 Progress note Formatting of [...] RTO in 4 weeks Emilee Rose APRN.CNM [facility] 09-01-2024 Instructions Mt Baron MA - 09/01/2024 4:14 PM EDT SEQUENTIAL SCREENINGS The [facility] offers sequential screenings for women [...] It will require an appointment with our robot technician. This is not an ultrasound performed [...] the above symptoms, contact our office at [phone] and ask to speak with a nurse. After hours, you can call doctors registry at [phone] OR call [facility] at [phone] and ask to have the doctor sales and customer relations rep paged. If you consider this an emergency, dial 9-1-6 or go to your nearest emergency department. NEED HELP? Are you dealing with a violent or abusive relationship? Are you a victim of rape or sexual assult? Call [facility] ([place]) 24 hour Crisis Hotline: 317.512.2117 or 360-297-4661. MANUAL Your Guide to a Healthy manual is now on-line. Visit [email or web address] [email or web address] to download your free copy documented in this encounter [facility] 08-12-2024 Telephone encounter Note Last OV 08/04/24. Please address in RR absence. Requested Prescriptions Pending Prescriptions Disp Refills ondansetron (ZOFRAN) 8 mg tablet 30 tablet 1 Sig: Take 1 tablet by mouth every 8 hours as needed for nausea/vomiting. Lisa Pedro RN [facility] 08-12-2024 Miscellaneous Notes Last OV 08/04/24. Please address in RR absence. Requested Prescriptions Pending Prescriptions Disp Refills ondansetron (ZOFRAN) 8 mg tablet 30 tablet 1 Sig: Take 1 tablet by mouth every 8 hours as needed for nausea/vomiting. Lisa Pedro, PIA documented in this encounter [facility] 08-05-2024 Progress note Formatting of t his note might be different from the original. Anatomy ultrasound reviewed. No abnormalities identified. Follow up as clinically indicated. Please place copy in ob chart. Gail Moreno MD [facility] Work Phone: 08-05-2024 Miscellaneous Notes Anatomy ultrasound reviewed. No abnormalities identified. Follow up as clinically indicated. Please place copy in ob chart. Gail Moreno MD documented in this encounter [facility] 08-04-2024 Miscellaneous Notes EH - S: Jennifer is a 29 year old female who presents at 20w6d for a routine visit. Feeling movement. Denies headache, visual changes, chest pain, shortness of breath, vaginal bleeding, leakage of fluid, or dysuria. O: See flow sheet Gen: No apparent distress Abd: Gravid, nontender ASSESSMENT/PLAN: 1. Supervision of high risk in second trimester ([facility]) - ICD9: V23.9, ICD10: O09.92 (primary diagnosis) - Continue PNV - Discussed management for constipation 2. 20 weeks gestation of ([facility]) - ICD9: V22.2, ICD10: Z3A.20 - Anatomy today, report pending 3. Obesity in ([facility]) - ICD9: 649.10, ICD10: O99.210 -Pre BMI 35 - Plan for 32 week growth q 4 weeks. - Weekly NSTs at 36 weeks. 4. History of suicide attempt - ICD9: V11.8, ICD10: Z91.51 - Reports mood has been stable at this time - To update throughout 5. Nausea and vomiting during ([facility]) - ICD9: 643.90, ICD10: O21.9 - Still experiencing - Takes Zofran every 6 hours - Encouraged to take 25 mg of Vitamin B6 TID, 1/2 a Unisom tablet at night - Watch weight, has lost 7 lbs PTL precautions reviewed. RTO in 4 weeks or sooner as needed. Vidal Willis APRN.DANICA documented in this encounter [facility] 08-04-2024 Progress note Formatting of [...] Supervision of high risk in second trimester ([facility]) - ICD9: V23.9, ICD10: O09.92 (primary diagnosis) - Continue PNV - Discussed management for constipation 2. 20 weeks gestation of ([facility]) - ICD9: V22.2, ICD10: Z3A.20 - Anatomy today, report pending 3. Obesity in ([facility]) - ICD9: 649.10, ICD10: O99.210 -Pre BMI 35 - Plan for 32 week growth q 4 weeks. - Weekly NSTs at 36 weeks. 4. History of suicide attempt - ICD9: V11.8, ICD10: Z91.51 - Reports mood has been stable at this time - To update throughout 5. Nausea and vomiting during ([facility]) - ICD9: 643.90, ICD10: O21.9 - Still experiencing - Takes Zofran every 6 hours - Encouraged to take 25 mg of Vitamin B6 TID, 1/2 a Unisom tablet at night - Watch weight, has lost 7 lbs PTL precautions reviewed. RTO in 4 weeks or sooner as needed. Vidal Willis APRN.MULTI MEDIA SPECIALIST [facility] 08-04-2024 Instructions Minnie Morris MA - 08/04/2024 3:52 PM EDT SEQUENTIAL SCREENINGS The [facility] offers sequential screenings for women [...] It will require an appointment with our robot technician. This is not an ultrasound performed [...] the above symptoms, contact our office at [phone] and ask to speak with a nurse. After hours, you can call doctors registry at [phone] OR call [facility] at [phone] and ask to have the doctor sales and customer relations rep paged. If you consider this an emergency, dial 1-2-4 or go to your nearest emergency department. NEED HELP? Are you dealing with a violent or abusive relationship? Are you a victim of rape or sexual assult? Call [facility] ([place]) 24 hour Crisis Hotline: 254.866.1956 or 121-203-8873. MANUAL Your Guide to a Healthy manual is now on-line. Visit [email or web address] to download your free copy documented in this encounter [facility] 08-03-2024 Instructions Dyan Corey, MUNICIPAL FIREFIGHTER.MULTI MEDIA SPECIALIST - 08/03/2024 7:25 PM EDT TREATMENT PLAN: [...] this treatment plan with her PCP and pleater. Also discussed informing of the treatment plan and symptoms he should monitor. Continue individual psychotherapy. Okay to engage in EMDR at a later point if you don't think trauma is impacting you in the present. Follow up on August 25 at 4:30 pm. For those experiencing a suicidal crisis: --call the National Suicide Prevention Lifeline at 776 (942-509-4300) --text the Crisis Text Line (text HOME to 796562) --call 911 and let them know you are having a mental health crisis or go to your nearest Emergency Room for stabilization. --You can also call Mobile Crisis at [phone]. -- You may call the department appointment line at [phone] to schedule your appointment. -- Please call my nurse at [phone] or send me a message in [employer] with any questions or concerns between appointments. documented in this encounter [facility] 08-03-2024 Note HNO ID: [id number] Author: DYAN COREY APRN.DANICA Service: ? Author [...] visit. Either the patient or their legal physician relations representative has been informed of the risks [...] Appearance: Well dresse (more content not included)... [facility] 08-03-2024 History of Presen t illness Narrative Images from the original note were not included. FOLLOW UP - PSYCHIATRIC PROGRESS NOTE PATIENT: Herminia Pinon [facility] DATE: August 03, 2024 Visit Type: Virtual [...] visit. Either the patient or their legal physician relations representative has been informed of the risks [...] this treatment plan with her PCP and pleater. Also discussed informing of the treatment plan [...] Dyan Corey APRN.CNP PATIENT NAME: Herminia Pinon [facility] DATE: August 03, 2024 TIME: 4:35 PM documented in this encounter [facility] 07-12-2024 Telephone encounter Note Last OV 07/07/24. Requested Prescriptions Pending Prescriptions Disp Refills ondansetron (ZOFRAN) 8 mg tablet 30 tablet 1 Sig: Take 1 tablet by mouth every 8 hours as needed for nausea/vomiting. Lisa Pedro RN [facility] 07-12-2024 Miscellaneous Notes Last OV 07/07/24. Requested Prescriptions Pending Prescriptions Disp Refills ondansetron (ZOFRAN) 8 mg tablet 30 tablet 1 Sig: Take 1 tablet by mouth every 8 hours as needed for nausea/vomiting. Lisa Pedro RN documented in this encounter [facility] 07-07-2024 Progress note Formatting of [...] MMR vaccine PP reviewed Esther Acosta MD [facility] 07-07-2024 Miscellaneous Notes DM-Pt doing [...] Esther Acosta MD documented in this encounter [facility] 07-07-2024 Instructions Mt Baron MA - 07/07/2024 4:02 PM EST SEQUENTIAL SCREENINGS The [facility] offers sequential screenings for women [...] It will require an appointment with our robot technician. This is not an ultrasound performed [...] the above symptoms, contact our office at [phone] and ask to speak with a nurse. After hours, you can call doctors registry at [phone] OR call [facility] at [phone] and ask to have the doctor sales and customer relations rep paged. If you consider this an emergency, dial 9-9-7 or go to your nearest emergency department. NEED HELP? Are you dealing with a violent or abusive relationship? Are you a victim of rape or sexual assult? Call [facility] ([place]) 24 hour Crisis Hotline: 370.399.3866 or 418-668-3744. MANUAL Your Guide to a Healthy manual is now on-line. Visit [email or web address] to download your free copy documented in this encounter [facility] 06-24-2024 Telephone encounter Note [facility] paperwork was completed and faxed back to employer. Mt Baron MA [facility] 06-24-2024 Miscellaneous Notes FMLA paperwork was completed and faxed back to employer. Mt Baron MA Received [facility] paperwork. Completed and on providers desk for signature. Mt Baron MA documented in this encounter [facility] 06-23-2024 Telephone encounter Note Last OV 06/22/24. Requested Prescriptions Pending Prescriptions Disp Refills ondansetron (ZOFRAN) 8 mg tablet 30 tablet 1 Sig: Take 1 tablet by mouth every 8 hours as needed for nausea/vomiting. Lisa Pedro RN [facility] 06-23-2024 Miscellaneous Notes Last OV 06/22/24. Requested Prescriptions Pending Prescriptions Disp Refills ondansetron (ZOFRAN) 8 mg tablet 30 tablet 1 Sig: Take 1 tablet by mouth every 8 hours as needed for nausea/vomiting. Lisa Pedro RN documented in this encounter [facility] 06-22-2024 Progress note Formatting of [...] Growth Weekly nsts at Denisa Bentley MD [facility] 06-22-2024 Miscellaneous Notes S: Herminia [...] Denisa Bentley MD documented in this encounter [facility] 06-22-2024 Instructions Ysabel Zamora MA - 06/22/2024 2:31 PM EST SEQUENTIAL SCREENINGS The [facility] offers sequential screenings for women [...] It will require an appointment with our robot technician. This is not an ultrasound performed [...] the above symptoms, contact our office at [phone] and ask to speak with a nurse. After hours, you can call doctors registry at [phone] OR call [facility] at [phone] and ask to have the doctor sales and customer relations rep paged. If you consider this an emergency, dial 0-9-8 or go to your nearest emergency department. NEED HELP? Are you dealing with a violent or abusive relationship? Are you a victim of rape or sexual assult? Call [facility] ([place]) 24 hour Crisis Hotline: 500.291.4887 or 598-907-0847. MANUAL Your Guide to a Healthy manual is now on-line. Visit [email or web address] to download your free copy documented in this encounter [facility] 06-18-2024 Telephone encounter Note noted [facility] Work Phone: 06-18-2024 Miscellaneous Notes [...] and did state she would go to [place] [facility]. Lisa Pedro RN documented in this encounter [facility] 06-18-2024 Telephone encounter Note 14w1d [...] and did state she would go to [place] [facility]. Lisa Pedro, RN [facility] 06-16-2024 Instructions Candis Baez APRN.CNP [...] if no improvement. documented in this encounter [facility] 06-16-2024 History of Presen t [...] APRN.CNP This note was partially generated using [employer] voice recognition system. Note was reviewed for accuracy. There may be minor misspellings or grammar miscues with [employer] voice recognition. documented in this encounter [facility] 06-16-2024 Note HNO ID: [id number] Author: CANDIS BAEZ APRN.CNP Service: ? Author [...] and rationale fo (more content not included)... [facility] 06-16-2024 Telephone encounter Note Appointment scheduled on 07/27/24 @ 4 pm. Mahi Hull LPN [facility] 06-16-2024 Miscellaneous Notes Appointment scheduled on 07/27/24 @ 4 pm. Mahi Hull LPN Pt calls to schedule an appt. Advised pt she would be called back by nurse to schedule. Evelyn Neves LPN documented in this encounter [facility] 06-16-2024 Telephone encounter Note Patient notified and voiced understanding, transferred to PSS to schedule. Ita Hayden RN [facility] 06-16-2024 Miscellaneous Notes Patient notified [...] assist with scheduling. documented in this encounter [facility] 06-15-2024 Telephone encounter Note Order signed. Emilee Rose APRN.CNM [facility] 06-15-2024 Telephone encounter Note Images [...] and contact patient to assist with scheduling. [facility] 06-15-2024 Telephone encounter Note Received [facility] paperwork. Completed and on providers desk for signature. Mt Baron MA [facility] 06-15-2024 Telephone encounter Note Pt calls to schedule an appt. Advised pt she would be called back by nurse to schedule. Evelyn Neves LPN [facility] 06-10-2024 Progress note Formatting of t [...] RTO in 4 weeks Emilee Rose APRN.CNM [facility] 06-10-2024 Miscellaneous Notes YANNI-S: Herminia Gottlieb [...] Emilee Rose APRN.CNM documented in this encounter [facility] 06-09-2024 Instructions Mt Baron MA - 06/09/2024 3:54 PM EST SEQUENTIAL SCREENINGS The [facility] offers sequential screenings for women [...] It will require an appointment with our robot technician. This is not an ultrasound performed [...] the above symptoms, contact our office at [phone] and ask to speak with a nurse. After hours, you can call doctors registry at [phone] OR call [facility] at [phone] and ask to have the doctor sales and customer relations rep paged. If you consider this an emergency, dial 9--1 or go to your nearest emergency department. NEED HELP? Are you dealing with a violent or abusive relationship? Are you a victim of rape or sexual assult? Call [facility] ([place]) 24 hour Crisis Hotline: 188.211.8986 or 332-753-8244. MANUAL Your Guide to a Healthy manual is now on-line. Visit [email or web address] to download your free copy documented in this encounter [facility] 06-09-2024 Instructions Dyan Corey APRN.MULTI MEDIA SPECIALIST - 06/09/2024 12:03 AM EST TREATMENT PLAN: [...] --call the National Suicide Prevention Lifeline at 837 (161-149-4548) --text the Crisis Text Line (text HOME to 492719) --call 911 and let them know you are having a mental health crisis or go to your nearest Emergency Room for stabilization. --You can also call Mobile Crisis at [phone]. -- You may call the department appointment line at [phone] to schedule your appointment. -- Please call my nurse at [phone] or send me a message in [employer] with any questions or concerns between appointments. documented in this encounter [facility] 06-08-2024 Telephone encounter Note Patient [...] as needed for nausea/vomiting. Cecilia Angel RN [facility] 06-08-2024 Miscellaneous Notes Patient comment: [...] Cecilia Angel RN documented in this encounter [facility] 06-01-2024 Note HNO ID: [id number] Author: DYAN COREY APRN.MULTI MEDIA SPECIALIST Service: ? Author Type: Nurse Practitioner Type: Progress Notes Filed: 06/09/2024 00:03 Note Text: FOLLOW UP - PSYCHIATRIC PROGRESS NOTE PATIENT: Herminia Pinon [facility] DATE: June 01, 2024 Visit Type:In person [...] functioning, but gene (more content not included)... [facility] 06-01-2024 History of Presen t [...] which included preparing to see the patient, yvqh-bu-nckn patient care, completing clinical documentation, and counseling and educating the patient/family/caregiver, ordering medications/labs, educating regarding psychiatric medication considerations during and collaboration with other healthcare providers. ADD ON PSYCHOTHERAPY CODE : No SIGNATURE: Dyan Corey APRN.CNP PATIENT NAME: Herminia Pinon [facility] DATE: June 01, 2024 TIME: 5:08 PM documented in this encounter [facility] 05-12-2024 Progress note Formatting of t his note might be different from the original. YANNI-See NOB visit and progress note. Uncertain about NIPT and carrier screening, handouts given. Emilee Rose APRN.CNM [facility] 05-12-2024 Miscellaneous Notes YANNI-See NOB visit and progress note. Uncertain about NIPT and carrier screening, handouts given. Emilee Rose APRN.CNM documented in this encounter [facility] 05-12-2024 Note HNO ID: [id number] Author: MT BARON MA Service: ? Author Type: Cabinet Maker Type: Progress Notes Filed: 05/12/2024 15:27 Note Text: OB point of care ultrasound was performed. See imaging tab for details. Mt Baron MA [facility] 05-12-2024 History of Presen t [...] office, Blood tinged streaks in vomitus-Reported to [facility] ER. States her urine was checked and bacteria was present-Was prescribed Cephalexin, but states she has no signs of a UTI and was advised by her holistic provider to not take. She has been seeing Homeopathic Dr. Ligia Foss [place], [facility]. Pt currently under the care of Dr. [...] all that apply)? 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 (Patient not taking: Reported on 05/11/2024) wokgdmmv-bxyi-[place]-calcium-mins 18 mg iron-400 mcg-500 mg Ca tab [...] discussed with the Patient or Patient's Authorized Career Portals Teacher. As applicable, any other physician, advance practice provider, medical student, or other health professional student that will be observing or involved in the sensitive examination for educational or training purposes was discussed with the Patient or Authorized Career Portals Teacher. The Patient or Authorized Career Portals Teacher has agreed to proceed with the sensitive [...] Emilee Rose APRN.CNM documented in this encounter [facility] 05-11-2024 Note HNO ID: [id number] Author: EMILEE ROSE APRN.CNM Service: ? Author Type: Asbestos Shingle Inspector Type: Progress Notes Filed: 05/12/2024 15:27 Note [...] office, Blood tinged streaks in vomitus-Reported to [facility] ER. States her urine was checked and bacteria was present-Was prescribed Cephalexin, but states she has no signs of a UTI and was advised by her holistic provider to not take. She has been seeing Homeopathic Dr. Ligia Foss [place], [facility]. Pt currently under the care of Dr. [...] all that apply)? 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 [facility] 05-11-2024 Instructions Emilee Rose APRN.CNM - 05/11/2024 4:00 PM EST Please select the following link to access the [facility] Your Guide to a Healthy [...] to help control my nausea and vomiting? [facility] has a helpful fact sheet on nausea in with recommendations. You can review it here: https://mothertobaby.org/fact-sh eets/jdakin-cvdycppv-jwbgoraxu-n vp project/pdf/. Also, eating small meals often, drinking plenty [...] . For more information, please see the [employer] fact sheet Paternal Exposures at https://3Nod.org/fact-sh eets/qljwfvja-sbszpnxjt-mphgzkpj y/pdf/. Lamotrigine (Lamictal ) This sheet is about exposure to lamotrigine in and while . This information is based on available published literature. It should not take the place of medical care and advice from your healthcare provider. What is lamotrigine? Lamotrigine is a medication that has been used to treat bipolar disorder, some types of seizures, and Gridley-Gastaut syndrome (a severe form of epilepsy). A [...] on depression in , please see the [employer] fact sheet at https://3Nod.org/fact-sh eets/depression-/. If your lamotrigine dose is increased [...] chance of defects? documented in this encounter [facility] 05-10-2024 Note HNO ID: [id number] Author: СВЕТЛАНА SRINIVASAN APRN.MULTI MEDIA SPECIALIST Service: ? Author Type: Nurse Practitioner Type: [...] Rinse mouth after use.... uses as needed) nytqcuab-rsor-II-calcium-mins 18 mg iron-400 mcg-500 mg Ca tab [...] She is agreeable to ER. Report to [place] [facility]. Discussed treatment plan and patient voices understanding. Patient's questions answered appropriately. Medications and potential side effects were discussed and patient voices understanding. Return to the office as scheduled or as needed for worsening/no improvement. Светлана Srinivasan APRN.[facility] 05-10-2024 History of Presen t illness Narrative [...] Rinse mouth after use.... uses as needed) mdqxqfyi-bibm-WC-calcium-mins 18 mg iron-400 mcg-500 mg Ca tab [...] She is agreeable to ER. Report to [place] ER. Discussed treatment plan and patient voices understanding. Patient's questions answered appropriately. Medications and potential side effects were discussed and patient voices understanding. Return to the office as scheduled or as needed for worsening/no improvement. Светлана Srinivasan APRN.MULTI MEDIA SPECIALIST documented in this encounter [facility] 05-10-2024 Telephone encounter Note Opened in error [facility] 05-10-2024 Miscellaneous Notes Opened in error documented in this encounter [facility] 05-07-2024 Telephone encounter Note Pt notified and voiced understanding. Lisa Pedro RN [facility] 05-07-2024 Miscellaneous Notes Pt notified [...] Denisa Shepherd RN documented in this encounter [facility] 05-07-2024 Telephone encounter Note Rx for suppository sent for patient to use if unable to keep food or liquids down. Nayeli Bowman APRN.CNM [facility] 05-07-2024 Telephone encounter Note Patient [...] medication be sent in? Denisa Shepherd, RN [facility] 05-06-2024 Instructions Nayeli Bowman APRN.[facility] - 05/06/2024 4:46 PM EST As you may already know, morning sickness can often be more appropriately called evening sickness or vdmpg-rtaguc-vd-the-day sickness. While there are the roverto few, [...] medication, Doxylamine, is currently marketed as an spqn-uok-wcxmkjo sleeping pill. Ask your practitioner if creating a vitamin B6/Doxylamine combination with dycz-frk-mgadkya medications would be safe for you. Prescription [...] Phenergan, Compazine, Reglan documented in this encounter [facility] 05-06-2024 Note HNO ID: [id number] Author: NAYELI BOWMAN APRN.CNM Service: ? Author Type: Asbestos Shingle Inspector Type: Progress Notes Filed: 05/06/2024 16:47 Note Text: VIRTUAL VISIT PROGRESS NOTE This is a virtual visit using [employer] Video Visit. It required patient-provider interaction for the medical decision making as documented below. I have communicated my name and active licensure. The patient's identity and physical location were verified at the time of this visit. Either the patient or their legal physician relations representative has been informed of the risks [...] Rinse mouth after use.... uses as needed) aytdpexn-kgpr-TV-calcium-mins 18 mg iron-400 mcg-500 mg Ca tab [...] RTO - already scheduled ODILON Calhoun APRN.CNM [facility] 05-06-2024 History of Presen t illness Narrative VIRTUAL VISIT PROGRESS NOTE This is a virtual visit using [employer] Zoom Video Visit. It required patient-provider interaction for the medical decision making as documented below. I have communicated my name and active licensure. The patient's identity and physical location were verified at the time of this visit. Either the patient or their legal physician relations representative has been informed of the risks [...] Rinse mouth after use.... uses as needed) mtzhhodi-trrx-ZA-calcium-mins 18 mg iron-400 mcg-500 mg Ca tab [...] ODILON Rea APRN.CNM documented in this encounter [facility] 05-02-2024 Telephone encounter Note Patient calling regarding ,vomiting. Conferenced to [facility] [ ] to speak with provider sales and customer relations rep for Emilee Rose CNM. [facility] 05-02-2024 Miscellaneous Notes Patient calling regarding ,vomiting. Conferenced to [facility] [ ] to speak with provider sales and customer relations rep for Emilee Rose CNM. documented in this encounter [facility] 04-20-2024 Telephone encounter Note Noted appointment time and plan to place on waitlist. [facility] 04-20-2024 Miscellaneous Notes Noted appointment time and plan to place on waitlist. Call placed OV scheduled for 06/01/2024 @ 4:[address] on waiting list and watch for a 4 week visit open. Asked patient to call for a sooner visit if she has concerns. Mahi Hull LPN documented in this encounter [facility] 04-20-2024 Telephone encounter Note Call placed OV scheduled for 06/01/2024 @ 4:[address] on waiting list and watch for a 4 week visit open. Asked patient to call for a sooner visit if she has concerns. Mahi Hull LPN [facility] 03-29-2024 Instructions Dyan Corey APRN.DANICA [...] such as someone who works an overnight material handler 1st shift. For these individuals, afternoon or evening light therapy can be helpful. For those experiencing a suicidal crisis: --call the National Suicide Prevention Lifeline at 988 (392.734.8831) --text the Crisis Text Line (text HOME to 823567) --call 911 and let them know you are having a mental health crisis or go to your nearest Emergency Room for stabilization. --You can also call Mobile Crisis at [phone]. -- You may call the department appointment line at [phone] to schedule your appointment. -- Please call my nurse at [phone] or send me a message in [employer] with any questions or concerns between appointments. documented in this encounter [facility] 03-29-2024 Note HNO ID: [id number] Author: DYAN COREY APRN.DANICA Service: ? Author [...] visit. Either the patient or their legal physician relations representative has been informed of the risks [...] a meeting to discuss concerns with her manager underwriting. She didn't feel like she got a good response from her manager underwriting. [place] manager underwriting was defensive about that topic. Denies any [...] Rinse mouth after use.... uses as needed) cjmktnfa-hklg-BR-calcium-mins 18 mg iron-400 mcg-500 mg Ca tab multivitamin (OPTIVITE P.M.T. ORAL) albuterol HFA (VENTOLIN HFA) 90 mcg/actuation inhaler Inhale 2 Puffs as instructed every 4 hours as needed for Wheezing/Shortness of Breath. No current facility-adm (more content not included)... [facility] 03-29-2024 History of Presen t [...] visit. Either the patient or their legal physician relations representative has been informed of the risks [...] a meeting to discuss concerns with her manager underwriting. She didn't feel like she got a good response from her manager underwriting. [place] manager underwriting was defensive about that topic. Denies any [...] Rinse mouth after use.... uses as needed) vrcyqdal-liby-AP-calcium-mins 18 mg iron-400 mcg-500 mg Ca tab [...] Dyan Corey APRN.CNP PATIENT NAME: Herminia Pinon [facility] DATE: March 29, 2024 TIME: 4:32 PM documented in this encounter [facility] 03-11-2024 Telephone encounter Note Last: 12/12/23 TREATMENT PLAN: 1.Continue Lamictal and Pristiq at the same dose. 2.Consider a 25 mg increase in Lamictal if patient notices that she is struggling with depression again. 3.Continue individual psychotherapy 2 times a week. Next: 03/29/24 [facility] 03-11-2024 Miscellaneous Notes Last: 12/12/23 TREATMENT PLAN: 1.Continue Lamictal and Pristiq at the same dose. 2.Consider a 25 mg increase in Lamictal if patient notices that she is struggling with depression again. 3.Continue individual psychotherapy 2 times a week. Next: 03/29/24 documented in this encounter [facility] 01-27-2024 Instructions Светлана Srinivasan APRN.CNP - 01/27/2024 4:48 PM EDT Labs ordered. When convenient -- increase the miralax for a day or two to see if that helps. Let me know. documented in this encounter [facility] 01-27-2024 Note HNO ID: [id number] Author: СВЕТЛАНА SRINIVASAN APRN.DANICA Service: ? Author [...] Rinse mouth after use.... uses as needed) ioqcoogs-ujxn-TB-calcium-mins 18 mg iron-400 mcg-500 mg Ca tab [...] Increase miralax to (more content not included)... [facility] 01-27-2024 History of Presen t [...] Rinse mouth after use.... uses as needed) wonaaijb-clqw-OD-calcium-mins 18 mg iron-400 mcg-500 mg Ca tab [...] as needed for worsening/no improvement. Светлана Srinivasan APRN.MULTI MEDIA SPECIALIST documented in this encounter [facility] 12-15-2023 Telephone encounter Note Last: 12/12/23 TREATMENT PLAN: 1.Continue Lamictal and Pristiq at the same dose. 2.Consider a 25 mg increase in Lamictal if patient notices that she is struggling with depression again. 3.Continue individual psychotherapy 2 times a week. Follow up in 3 months Next: NA [facility] 12-15-2023 Miscellaneous Notes Last: 12/12/23 TREATMENT PLAN: 1.Continue Lamictal and Pristiq at the same dose. 2.Consider a 25 mg increase in Lamictal if patient notices that she is struggling with depression again. 3.Continue individual psychotherapy 2 times a week. Follow up in 3 months Next: NA documented in this encounter [facility] 12-12-2023 Instructions Dyan Corey APRN.CNP [...] the National Suicide Prevention Lifeline at 988 (340-844-1662) --text the Crisis Text Line (text HOME to 524008) --call 911 and let them know you are having a mental health crisis or go to your nearest Emergency Room for stabilization. --You can also call Mobile Crisis at [phone]. Next appointment: --Schedule in 3 months or sooner if needed -- You may call the department appointment line at [phone] to schedule your appointment. -- Please call my nurse at [phone] or send me a message in [employer] with any questions or concerns between appointments. documented in this encounter [facility] 12-12-2023 Note HNO ID: [id number] Author: DYAN COREY APRN.CNP Service: ? Author [...] visit. Either the patient or their legal physician relations representative has been informed of the risks [...] Rinse mouth after use.... uses as needed) lurgxvge-lizo-TY-calcium-mins 18 mg iron-400 mcg-500 mg Ca tab [...] hr tablet T (more content not included)... [facility] 12-12-2023 History of Presen t [...] visit. Either the patient or their legal physician relations representative has been informed of the risks [...] Rinse mouth after use.... uses as needed) akdqvgal-hrpz-IQ-calcium-mins 18 mg iron-400 mcg-500 mg Ca tab [...] which included preparing to see the patient, wqcv-qb-aafm patient care, completing clinical documentation, and counseling and educating the patient/family/caregiver, ordering medications/labs. ADD ON PSYCHOTHERAPY CODE : No SIGNATURE: Dyan Corey APRN.CNP PATIENT NAME: Herminia Pinon [facility] DATE: December 12, 2023 TIME: 4:32 PM documented in this encounter [facility] 11-12-2023 Telephone encounter Note Called Pt to schedule appt and get more info about her toes. She opted to wait to schedule with us and said if she could not find anything sooner someplace else, she would call back. She does not currently have an infection. Ramu Varner November 12, 2023 4:52 PM [facility] 11-12-2023 Miscellaneous Notes Called Pt to schedule appt and get more info about her toes. She opted to wait to schedule with us and said if she could not find anything sooner someplace else, she would call back. She does not currently have an infection. Ramu Varner November 12, 2023 4:52 PM ----- Message from Keri Almendarez Nurse Sexual Assault Ppg sent at 11/12/2023 7:44 AM EDT [...] other than patient: no Best contact number: [phone] Thank you, Ethel Boyer November 11, 2023 4:36 PM documented in this encounter [facility] 11-12-2023 Telephone encounter Note ----- Message from Keri Almendarez Nurse Sexual Assault Ppg sent at 11/12/2023 7:44 AM EDT [...] other than patient: no Best contact number: [phone] Thank you, Ethel Boyer November 11, 2023 4:36 PM [facility] 10-07-2023 Telephone encounter Note Pt advised she would need an appt to have the shoulder evaluated. Lainey Valdes MA [facility] 10-07-2023 Miscellaneous Notes Pt advised she would need an appt to have the shoulder evaluated. Lainey Valdes MA documented in this encounter [facility] 10-06-2023 Instructions Светлана Srinivasan APRN.DANICA - 10/06/2023 6:55 PM EDT Check w/ insurance re: the EMG. Cock-up splints to sleep. Tennis elbow splint. Moist heat/ice to the back. Massage. Drop of mineral oil to the ears a few times/week. documented in this encounter [facility] 10-06-2023 History of Presen t [...] Rinse mouth after use.... uses as needed) uucbdwet-xyow-KU-calcium-mins 18 mg iron-400 mcg-500 mg Ca tab [...] as needed for worsening/no improvement. Светлана Srinivasan APRN.MULTI MEDIA SPECIALIST documented in this encounter [facility] 09-05-2023 History of Presen t [...] visit. Either the patient or their legal physician relations representative has been informed of the risks [...] Rinse mouth after use.... uses as needed) nzbnfuxe-jxnj-DY-calcium-mins 18 mg iron-400 mcg-500 mg Ca tab [...] Psychiatric scales, Electronic medical record, Labs, and rehab consultant report DIAGNOSIS: Mood disorder - PMDD [...] which included preparing to see the patient, mpdc-ba-rbob patient care, completing clinical documentation, and counseling and educating the patient/family/caregiver, ordering medications/labs. ADD ON PSYCHOTHERAPY CODE : No SIGNATURE: Dyan Corey APRN.CNP PATIENT NAME: Herminia Pionn [facility] DATE: September 05, 2023 TIME: 4:40 PM documented in this encounter [facility] 08-08-2023 History of Presen t [...] L0 SAB0 IAB0 Ectopic0 Multiple0 Live Births0 Ob/Gyn History LMP: 07/27/2023 (Exact Date), Having periods Age at Menarche: Age at First : Age at Menopause: Ob/Gyn History Comments: Sexual Activity: Yes; Male Contraception: [...] external genitalia normal, normal Bartholin's glands, urethra, [place]'s glands, no vulvar lesions, no cervical lesions, [...] Emilee Rose APRN.CNM documented in this encounter [facility] 07-17-2023 History of Presen t [...] visit. Either the patient or their legal physician relations representative has been informed of the risks [...] did have a therapy appointment on Friday. [place] worse after leaving the appointment. She verbalizes [...] use.... uses as needed) 1 Bottle 1 xdmxjynb-dlks-ZT-calcium-mins 18 mg iron-400 mcg-500 mg Ca tab [...] which included preparing to see the patient, pgpl-rj-jams patient care, completing clinical documentation, obtaining and/or reviewing separately obtained history, counseling and educating the patient/family/caregiver, ordering medications, tests, or procedures, communicating with other HCPs (not separately reported), independently interpreting results (not separately reported), and communicating results to the patient/family/caregiver. ADD ON PSYCHOTHERAPY CODE : No SIGNATURE: Dyan Corey APRN.CNP PATIENT NAME: Herminia Pinon [facility] DATE: July 17, 2023 TIME: 4:12 PM documented in this encounter [facility] 07-07-2023 Instructions Dyan Corey APRN.CNP - 07/07/2023 5:07 PM EST Ken Hope, It was good to talk with you today. Below is a summary of the plan that we discussed during your appointment for reference. Of course, if you have any questions or concerns do not hesitate to reach out to me via a message or call. Best, Dyan Rajguru MUNICIPAL FIREFIGHTER.MULTI MEDIA SPECIALIST PLAN AND FOLLOW UP: YOU SHOULD SEEK [...] - Call the National Suicide Hotline at 958 - Text 4HOPE to 738 Medications: Continue: Pristiq at the same dose. Change: Lamictal 25 mg - take 2 and half tablet once daily for 30 days, then take 3 tablets once daily after that Next appointment: --Schedule in 2 months or sooner if needed -- You may call the department appointment line at [phone] to schedule your appointment. -- Please call my nurse Hilda at [phone] or send me a message in [employer] with any questions or concerns between appointments. documented in this encounter [facility] 07-07-2023 History of Presen t [...] visit. Either the patient or their legal physician relations representative has been informed of the risks [...] use.... uses as needed) 1 Bottle 1 birmcvjz-kcjl-AE-calcium-mins 18 mg iron-400 mcg-500 mg Ca tab [...] which included preparing to see the patient, sixh-lz-twzo patient care, completing clinical documentation, obtaining and/or [...] TIME: 4:35 PM documented in this encounter [facility] 06-26-2023 History of Presen t [...] PATIENT PRESENTS WITH AN IMPLANTABLE OR ATTACHED DERMATOLOGICAL SURGEON: No RADIOLOGY DEPARTMENT: Ultrasound PERIPHERAL IV DATA: Not applicable SIGNED BY: Ernestine Kothari RDMS June 26, 2023 2:46 PM documented in this encounter [facility] 06-16-2023 Instructions Светлана Srinivasan APRN.MULTI MEDIA SPECIALIST - 06/16/2023 10:19 AM EST Continue the omeprazole for a couple of weeks. Schedule the ultrasound. Zofran as needed for nausea. Stay well hydrated. documented in this encounter [facility] 06-16-2023 History of Presen t [...] Rinse mouth after use.... uses as needed) awacjgkh-ayvd-WH-calcium-mins 18 mg iron-400 mcg-500 mg Ca tab [...] as needed for worsening/no improvement. Светлана Srinivasan APRN.MULTI MEDIA SPECIALIST documented in this encounter [facility] 05-12-2023 History of Presen t [...] visit. Either the patient or their legal physician relations representative has been informed of the risks [...] use.... uses as needed) 1 Bottle 1 gtltgezx-cqwd-QS-calcium-mins 18 mg iron-400 mcg-500 mg Ca tab [...] Psychiatric scales, Labs, Electronic medical record, and Engine Testing Supervisor notes DIAGNOSIS: PRIMARY: Mood Disorder Secondary : [...] which included preparing to see the patient, waxt-ws-yizj patient care, completing clinical documentation, obtaining and/or [...] TIME: 4:50 PM documented in this encounter [facility] 04-15-2023 Instructions Светлана Srinivasan APRN.CNP - 04/15/2023 3:37 PM EST Check the vitamin and see how much folic acid is in it. Add folic acid 1 mg day. Start the augmentin. Start the bactroban in the nose. documented in this encounter [facility] 04-15-2023 History of Presen t [...] the right nostril. Red throat. Not coughing. [place] a little dizzy in the morning. Hot [...] Rinse mouth after use.... uses as needed) zfxakhzh-uvjh-AI-calcium-mins 18 mg iron-400 mcg-500 mg Ca tab [...] Светлана Srinivasan APRN.DANICA documented in this encounter [facility] 03-21-2023 Miscellaneous Notes Addressed during appointment today. documented in this encounter [facility] 03-21-2023 History of Presen t [...] visit. Either the patient or their legal physician relations representative has been informed of the risks [...] the [employer]. She contacted this provider via [employer] and requested to trial Lamictal again at [...] use.... uses as needed) 1 Bottle 1 kdaxnowz-qftc-ME-calcium-mins 18 mg iron-400 mcg-500 mg Ca tab [...] which included preparing to see the patient, pbtg-ra-luww patient care, completing clinical documentation, obtaining and/or reviewing separately obtained history, counseling and educating the patient/family/caregiver, ordering medications, tests, or procedures, independently interpreting results (not separately reported), and communicating results to the patient/family/caregiver. ADD ON PSYCHOTHERAPY CODE : No SIGNATURE: Dyan Corey APRN.CNP PATIENT NAME: Herminia Pinon [facility] DATE: March 21, 2023 TIME: 4:31 PM documented in this encounter [facility] 02-28-2023 Miscellaneous Notes See telephone encounter. documented in this encounter [facility] 02-12-2023 Instructions Dyan Corey APRN.CNP [...] - Call the National Suicide Hotline at 4-457-BKAYIBR ( ) or 7-964-126-TALK (2860) - Text 4HOPE to 801379 Medication Updates: 1) Pristiq 100 mg XR [...] may call the department appointment line at [phone] to schedule your appointment. -- Please call my nurse Hilda at [phone] or send me a message in [employer] with any questions or concerns between appointments. documented in this encounter [facility] 02-12-2023 History of Presen t [...] visit. Either the patient or their legal physician relations representative has been informed of the risks [...] Has rescue dog and cat. 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 She likes her job but misses the [...] when her older brother left for college. [place] down and not herself during middle school [...] college. She had an inpatient admission at [facility]. Then saw Dr. Gibbons at the counseling [...] The first medication she tried was Prozac. [place] that Prozac was helpful for a while [...] Bottle 1 LORATADINE ORAL Take by mouth. sgeipgqv-ktrn-GJ-calcium-mins 18 mg iron-400 mcg-500 mg Ca tab [...] Provider: Previously followed by a psychiatrist [facility] Therapist: Followed at [facility] by [place]. Also sees a couples therapist with her to manage the relationship issues with her side of the family. Current Broadcast Checker: No Last Hospitalization: See HPI ECT: No Previous Discontinued Psychiatric Med Trials: See HPI SUBSTANCE USE HISTORY: Nicotine: None Caffeine: Coffee, 1 cups/day Alcohol: No history of use or dependence Marijuana: No history of use or dependence Cocaine: No history of use or dependence Opiods: No history of use or dependence SPIRITUALITY: Hindu COMMUNITY HEALTH: Herminia Gottlieb is the youngest of 3 siblings. The patient was born and raised in [place], [place]. She completed Associates degree. She described [...] which included preparing to see the patient, okwg-uk-wzbj patient care, completing clinical documentation, obtaining and/or reviewing separately obtained history, counseling and educating the patient/family/caregiver, ordering medications, tests, or procedures, communicating with other HCPs (not separately reported), independently interpreting results (not separately reported), and communicating results to the patient/family/caregiver. ADD ON PSYCHOTHERAPY CODE : No SIGNATURE: Dyan Corey APRN.CNP PATIENT NAME: Herminia Pinon [facility] DATE: February 12, 2023 TIME: 9:04 AM PAGER : documented in this encounter [facility] 02-06-2023 Miscellaneous Notes Called pt [...] Jessica Trivedi RN documented in this encounter [facility] 12-23-2022 Instructions Светлана Srinivasan APRN.CNP - 12/23/2022 6:21 PM EDT Schedule the EMG. Ortho referral is placed. documented in this encounter [facility] 12-23-2022 History of Presen t [...] Rinse mouth after use.... uses as needed) znreecwp-ppuo-DB-calcium-mins 18 mg iron-400 mcg-500 mg Ca tab [...] as needed for worsening/no improvement. Светлана Srinivasan APRN.MULTI MEDIA SPECIALIST documented in this encounter [facility] 08-28-2022 Instructions Светлана Srinivasan APRN.DANICA - 08/28/2022 8:16 AM EDT Start the omnicef. Fluconazole if needed. Start mucinex D if you can tolerate it. Start flonase (fluticasone). Let me know if you start the rexulti. documented in this encounter [facility] 08-28-2022 History of Presen t [...] Rinse mouth after use.... uses as needed) otjteirr-caax-ZN-calcium-mins 18 mg iron-400 mcg-500 mg Ca tab [...] Светлана Srinivasan APRN.DANICA documented in this encounter [facility] 08-12-2022 Instructions Светлана Srinivasan APRN.CNP - 08/12/2022 8:23 AM EDT Images from the original note were not included. Start the doxycycline. Start the fluconazole. Start the rexulti in 3 days. Recheck in 1-2 weeks. Let me know sooner, if you need. documented in this encounter [facility] 08-12-2022 History of Presen t [...] sore outbreak LORATADINE ORAL Take by mouth. lypttntt-fydt-JV-calcium-mins 18 mg iron-400 mcg-500 mg Ca tab [...] with the plan. documented in this encounter [facility] 08-11-2022 Miscellaneous Notes Reason for Call: External vaginal itching and white discharge. Outcome: Disposition- See pcp within 3 days. Warm transfer to [place] in . Offered EC/UC as an option [...] : denies, LMP 07/23/22. Protocols used: Vaginal Ofrvjsqe-MAZZX-MT, Vulvar Lwldufvu-HBKUH-LB documented in this encounter [facility] 07-10-2022 Miscellaneous Notes As stated [...] Lila Ortiz Ma documented in this encounter [facility] 07-03-2022 Instructions Светлана Srinivasan APRN.CNP - 07/03/2022 10:45 AM EST Same medication. Recheck in 6 months. documented in this encounter [facility] 07-03-2022 History of Presen t [...] Rinse mouth after use.... uses as needed) qebjxppd-hafp-FO-calcium-mins 18 mg iron-400 mcg-500 mg Ca tab [...] as needed for worsening/no improvement. Светлана Srinivasan APRN.MULTI MEDIA SPECIALIST This note was partially generated using [employer] recognition system. Note was reviewed for accuracy. There may be minor misspellings or grammar miscues with [employer] voice recognition. documented in this encounter [facility] 06-10-2022 Miscellaneous Notes Patient phones [...] Annabelle Cason LPN documented in this encounter [facility] 05-28-2022 Instructions Светлана Srinivasan APRN.MULTI MEDIA SPECIALIST - 05/28/2022 10:21 AM EST Home going [...] help open respiratory and sinus passages. - Winkler Nasal Dovray may offer relief of nasal and head [...] symptoms get worse. documented in this encounter [facility] 05-28-2022 History of Presen t [...] use.... uses as needed) 1 Bottle 1 xeimlygg-hfxd-OA-calcium-mins 18 mg iron-400 mcg-500 mg Ca tab [...] APRN.DANICA This note was partially generated using [employer] voice recognition system. Note was reviewed for accuracy. There may be minor misspellings or grammar miscues with [employer] voice recognition. documented in this encounter [facility] 05-28-2022 Miscellaneous Notes Reason:Right ear pain and sore throat. Outcome: See PCP within 24 hours. [facility]. Reason for Disposition Earache (Exceptions: [...] and cough. 8. : Denies. Protocols used: Nbyfgkz-QXUYF-MB documented in this encounter [facility] 05-28-2022 Miscellaneous Notes Reason for [...] menstrual period? *No Answer* Protocols used: Sore Xggomd-QEEXC-QZ documented in this encounter [facility] 04-17-2022 Instructions Светлана Srinivasan APRN.DANICA - 04/17/2022 10:41 AM EST Continue the same medication. Let me know if dosage needs increased. Recheck in 2-3 months. Update me next week with URI symptoms. documented in this encounter [facility] 04-17-2022 History of Presen t [...] Rinse mouth after use.... uses as needed) hshkawew-uqmg-JK-calcium-mins 18 mg iron-400 mcg-500 mg Ca tab [...] She has less than a week of icmwt-nnrzi-erw fluoxetine left. She will monitor for worsening [...] Светлана Srinivasan APRN.CNP documented in this encounter [facility] 03-22-2022 Miscellaneous Notes Script sent. Светлана Srinivasan APRN.CNP Rx pended Laurie Myrick Ma Patient states she was informed to call and update medication. She has 2 pills of Fluoxetine left. 20 mg. documented in this encounter [facility] 03-20-2022 Instructions Светлана Srinivasan APRN.CNP - 03/20/2022 11:20 AM EST Continue to titrate off the prozac. (Let me know if you have enough 10 mg capsules). Recheck in 1 month. documented in this encounter [facility] 03-20-2022 History of Presen t [...] Rinse mouth after use.... uses as needed) mtylzfoo-xhhu-KQ-calcium-mins 18 mg iron-400 mcg-500 mg Ca tab [...] as needed for worsening/no improvement. Светлана Srinivasan APRN.MULTI MEDIA SPECIALIST documented in this encounter [facility] 03-06-2022 Miscellaneous Notes Ok noted. [...] Светлана Srinivasan APRN.DANICA documented in this encounter [facility] 02-22-2022 Instructions Светлана Sirnivasan APRN.CNP - 02/22/2022 1:35 PM EDT Decrease the prozac to 20 mg. Increase the pristiq to 50 mg. Recheck in a month. documented in this encounter [facility] 02-22-2022 History of Presen t [...] Rinse mouth after use.... uses as needed) moqjdygx-iqgu-KC-calcium-mins 18 mg iron-400 mcg-500 mg Ca tab [...] with the plan. documented in this encounter [facility] 01-27-2022 Miscellaneous Notes See myc message Khurram Oro PA-C documented in this encounter [facility] 01-25-2022 Instructions Veronica Oro PA-C - 01/25/2022 3:40 PM EDT Provide services on a sliding fee scale for [facility]. [address] [address] *Counseling [place] [id number] [place], [place] [id number] *Counseling, Psychiatry and Case Management [address] [address] *Counseling [address] [address] *Counseling [address] [place] [address] *Counseling [address] [place], [place] [id number] *Counseling [address] [place], [place] [id number] *Counseling/mental health and substance use treatment [facility] [address] [place], [place] [address] [address] [facility] [address] , [address] [place] [address] *Addiction services, services for victims of domestic violence and sexual assault, housing services [facility] -safe, alcohol and drug free environment [facility] [phone] *free grief services, individual and group *If you ever experience a mental health crisis please contact [phone], 911 or go to the nearest ER. [phone] if emergency for Khurram CORTEZ Please verify with insurance provider for coverage. Desvenlafaxine: Patient drug information Access [employer] for additional drug information, tools, and databases. Copyright 9135-1189 [facility]. All rights reserved. (For additional information see [...] much, and when it happened. Last Reviewed [id number] Consumer Information Use and Disclaimer This information [...] of this information is governed by the [employer] End User License Agreement, available at https://www.[employer]/en /solutions/MicroEnsure/about/kwaku. 2020 [employer]. and its affiliates and/or licensors. All rights reserved. Use of [employer] is subject to the Subscription and License Agreement. 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 Works in [employer]. In counseling with r/t family issues. She is planning to go to counseling. [facility]. Past medications: Prozac has helped Bupropion made [...] use.... uses as needed) 1 Bottle 1 anripihw-jrel-ER-calcium-mins 18 mg iron-400 mcg-500 mg Ca tab [...] Abs Lymph 1.00 - 4.00 k/uL 1.55 Otoe% % 10.8 Abs Otoe <0.87 k/uL 0.49 Eosin% % 1.5 Abs [...] Veronica Oro PA-C documented in this encounter [facility] 01-25-2022 Miscellaneous Notes Protocol recommends [...] reports she has counselor Dany Cheung at [facility], she left him a message this morning. [...] Dec 30- Jan 2. Protocols used: Suicide Ngklybzm-EMUWM-GL, Fcswqjnhfd-DIZIP-DG documented in this encounter [facility] 01-25-2022 Miscellaneous Notes Opening triage note. documented in this encounter [facility] 01-24-2022 Miscellaneous Notes PATIENT NOTIFIED [...] Светлана Srinivasan APRN.DANICA documented in this encounter [facility] 01-16-2022 Instructions Светлана Srinivasan APRN.DANICA - 01/16/2022 10:22 AM EDT Get labs/urine Schedule ultrasound. Same medication. documented in this encounter [facility] 01-16-2022 History of Presen t [...] hours as needed for Wheezing/Shortness of Breath. cftygmfl-qzmt-WP-calcium-mins (ONE-A-DAY WOMENS FORMULA) 18 mg iron-400 mcg-500 [...] Светлана Srinivasan APRN.DANICA documented in this encounter [facility] 10-31-2021 Instructions Светлана Srinivasan APRN.CNP - 10/31/2021 2:57 PM EDT 1. Continue the prozac. Take one capsule daily on days 1-14. Take two capsules on day 14-28. 2. Recheck in 3 months. Send me a mychart w/ updates. documented in this encounter [facility] 10-31-2021 History of Presen t [...] were treated when they worked in the [employer] business. She is considering doing individual counseling [...] mouth after use.... uses as needed ) rmtoemee-zfia-JU-calcium-mins (ONE-A-DAY WOMENS FORMULA) 18 mg iron-400 mcg-500 [...] with the plan. documented in this encounter [facility] 10-31-2021 History of Presen t illness Narrative Jennifre is a 26 year old who presents for an annual gynecologic exam without complaints. Considering in next few years. 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 Menses: cycles every 28-30 days and 3-4 days of flow. Contraception: condoms HPV vaccine: No Last Pap: normal HPV: N/A History of abnormal pap: No Last mammogram: never Sexually active: Yes History of STDS: None Patient concerns for STD exposure: No. Pain with intercourse: No Postcoital bleeding: No Exercise: active Diet: balanced OB History T0 L0 SAB0 IAB0 Ectopic0 Multiple0 Live Births0 Ob/Gyn History LMP: 10/05/2021, Having periods Age at Menarche: Age at First : Age at Menopause: Ob/Gyn History Comments: Sexual Activity: Yes; Male Contraception: [...] external genitalia normal, normal Bartholin's glands, urethra, [place]'s glands, no vulvar lesions, no cervical lesions, [...] screening reviewed- pamphlet given Esther Acosta MD Coordinator Skill Training Program offered: Patient declines. documented in this encounter [facility] 09-14-2021 Miscellaneous Notes Patient notified via [employer] message. Chelsey Casas MA No my panel is closed. Pt was a previous [facility] patient, she is wondering if you would make an exception taking her on as a patient. Please review, thank you. ROXIE Chen September 14, 2021 1:55 PM documented in this encounter [facility] 07-30-2021 Miscellaneous Notes Please see patient response in [employer]. She received results has no questions and will call to schedule. documented in this encounter [facility] 07-26-2021 History of Presen t [...] up with counseling with her parents at [facility]. Has not seen individual counselor in more [...] nostril once daily. Rinse mouth after use. ubkpjcfq-zbjt-WH-calcium-mins (ONE-A-DAY WOMENS FORMULA) 18 mg iron-400 mcg-500 [...] which included preparing to see the patient, ziux-ec-fowp patient care, completing clinical documentation, obtaining and/or reviewing separately obtained history, performing a medically appropriate examination, counseling and educating the patient/family/caregiver and ordering medications, tests, or procedures. Tres Pugh MD documented in this encounter [facility] 07-17-2021 Miscellaneous Notes Reviewed. Britta Smith APRN.CNP documented in this encounter [facility] Evaluation note Diagnosis Recurrent major depressive disorder, in remission (HCC)- Primary Eczema, unspecified type [facility] Recurrent major depressive disorder, in remission (HCC) [facility] Encounter for gynecological examination (general) (routine) without abnormal findings- Primary Screening for cervical cancer Screening for malignant neoplasm of the cervix [facility] Diagnosis Recurrent major depressive disorder, in remission (HCC) [facility] Diagnosis Recurrent major depressive disorder, in remission (HCC) [facility] Diagnosis Recurrent major depressive disorder, in remission (HCC)- Primary Numbness and tingling Disturbance of skin sensation Cold extremities [facility] Diagnosis Hypercalcemia- Primary [facility] Diagnosis Recurrent major depressive disorder, in remission (HCC)- Primary [facility]* Diagnosis Anxiety and depression- Primary Dysthymic disorder [facility]* Diagnosis Recurrent major depressive disorder, in remission (HCC)- Primary [facility] Diagnosis Anxiety and depression- Primary Dysthymic disorder Recurrent cold sores Herpes simplex without mention of complication Symptoms of upper respiratory infection (URI) documented in this encounter [facility] note* Diagnosis Bacterial sinusitis- Primary Unspecified sinusitis (chronic) documented in this encounter [facility] note* Diagnosis Symptoms of upper respiratory infection (URI)- Primary documented in this encounter [facility] note* Diagnosis Anxiety and depression Dysthymic disorder documented in this encounter [facility] note* Diagnosis Anxiety and depression Dysthymic disorder documented in this encounter [facility] note* Diagnosis Moderate episode of recurrent major depressive disorder (HCC)- Primary Bacterial sinusitis Unspecified sinusitis (chronic) Candidiasis Candidiasis of unspecified site documented in this encounter [facility] note* Diagnosis Moderate episode of recurrent major depressive disorder (HCC)- Primary Bacterial sinusitis Unspecified sinusitis (chronic) Candidiasis Candidiasis of unspecified site documented in this encounter [facility] note* Diagnosis Bilateral hand pain- Primary Pain in limb Acute pain of right shoulder documented in this encounter [facility] note* Diagnosis Moderate episode of recurrent major depressive disorder (HCC)- Primary documented in this encounter [facility] note* Diagnosis Mood disorder (HCC)- Primary Unspecified episodic mood disorder Generalized anxiety disorder documented in this encounter [facility] note* Diagnosis Generalized anxiety disorder- Primary Mood disorder (HCC) Unspecified episodic mood disorder documented in this encounter [facility] note* Diagnosis Acute non-recurrent sinusitis, unspecified location- Primary Sore in nose Other diseases of nasal cavity and sinuses Family planning advice Other general counseling and advice for contraceptive management documented in this encounter [facility] note* Diagnosis Generalized anxiety disorder- Primary Mood disorder (HCC) Unspecified episodic mood disorder documented in this encounter [facility] note* Diagnosis Low back pain, unspecified back pain laterality, unspecified chronicity, unspecified whether sciatica present- Primary Nausea Nausea alone Gastroesophageal reflux disease, unspecified whether esophagitis present documented in this encounter [facility] note* Diagnosis Low back pain, unspecified back pain laterality, unspecified chronicity, unspecified whether sciatica present documented in this encounter [facility] note* Diagnosis Generalized anxiety disorder- Primary Mood disorder (HCC) Unspecified episodic mood disorder [facility] Mood disorder (HCC)- Primary Unspecified episodic mood disorder Generalized anxiety disorder [facility] Diagnosis Encounter for gynecological examination (general) (routine) with abnormal findings- Primary Encounter for preconception consultation Other procreative management counseling and advice Class 2 obesity without serious comorbidity with body mass index (BMI) of 36.0 to 36.9 in adult, unspecified obesity type [facility]* Diagnosis Sore in nose Other diseases of nasal cavity and sinuses [facility]* Diagnosis Mood disorder (HCC)- Primary Unspecified episodic mood disorder Generalized anxiety disorder [facility] Diagnosis Dryness of both ear canals- Primary Ear pain, bilateral Medial epicondylitis of left elbow Medial epicondylitis of elbow Back strain, subsequent encounter [facility] Diagnosis Mood disorder (HCC)- Primary Unspecified episodic mood disorder Generalized anxiety disorder [facility] Diagnosis Encounter for routine adult medical examination- Primary Recurrent major depressive disorder, in remission (HCC) Need for vaccination Need for prophylactic vaccination and inoculation against unspecified single disease Acute constipation- Primary Unspecified constipation [facility] Diagnosis Encounter for routine adult medical [...] not elsewhere classified [facility]* Diagnosis Encounter for routine adult medical examination- Primary Recurrent major depressive disorder, in remission (HCC) Need for vaccination Need for prophylactic vaccination and inoculation against unspecified single disease Nausea and vomiting during - Primary 8 weeks gestation of state, incidental [facility] Diagnosis Encounter for routine adult medical examination- Primary Recurrent major depressive disorder, in remission (HCC) Need for vaccination Need for prophylactic vaccination and inoculation against unspecified single disease Morning sickness- Primary Mild hyperemesis gravidarum, unspecified as to episode of care [facility] Diagnosis Encounter for routine adult medical [...] episode of care [facility] Diagnosis Encounter for routine adult medical [...] not elsewhere classified [facility] Diagnosis Encounter for routine adult medical examination- Primary Recurrent major depressive disorder, in remission (HCC) Need for vaccination Need for prophylactic vaccination and inoculation against unspecified single disease Encounter for screening for malformation using ultrasound- Primary Encounter for (NT) nuchal translucency scan Other specified screening 12 weeks gestation of state, incidental [facility] note* Diagnosis Encounter for routine adult medical [...] and vomiting during [facility] Diagnosis Encounter for routine adult medical examination- Primary Recurrent major depressive disorder, in remission (HCC) Need for vaccination Need for prophylactic vaccination and inoculation against unspecified single disease Obesity in - Primary Obesity complicating , childbirth, or the puerperium, unspecified as to episode of care or not applicable Supervision of high risk in first trimester Unspecified high-risk documented in this encounter [facility] note* Diagnosis Encounter for routine adult medical examination- Primary Recurrent major depressive disorder, in remission (HCC) Need for vaccination Need for prophylactic vaccination and inoculation against unspecified single disease URI, acute- Primary Acute upper respiratory infections of unspecified site documented in this encounter [facility] note* Diagnosis Encounter for routine adult medical [...] or not applicable documented in this encounter [facility] note* Diagnosis Encounter for routine adult medical [...] incidental documented in this encounter [facility] note* Diagnosis Encounter for routine adult medical [...] vaccine PP reviewed documented in this encounter [facility] note* Diagnosis Encounter for routine adult medical examination- Primary Recurrent major depressive disorder, in remission Need for vaccination Need for prophylactic vaccination and inoculation against unspecified single disease Obesity in (HCC)- Primary Obesity complicating , childbirth, or the puerperium, unspecified as to episode of care or not applicable Encounter for supervision of normal first in second trimester ([facility]) Supervision of normal first Anxiety and depression Dysthymic disorder Nausea and vomiting during (HCC) 16 weeks gestation of (HCC) state, incidental Rubella non-immune status, antepartum ([facility]) Other specified complication, antepartum Mood disorder- Primary Unspecified episodic mood disorder Generalized anxiety disorder Encounter for long-term (current) use of medications Encounter for long-term (current) use of other medications 20 weeks gestation of (HCC) state, incidental documented in this encounter [facility] note* Diagnosis Encounter for routine adult medical examination- Primary Recurrent major depressive disorder, in remission Need for vaccination Need for prophylactic vaccination and inoculation against unspecified single disease Obesity in (HCC)- Primary Obesity complicating , childbirth, or the puerperium, unspecified as to episode of care or not applicable Encounter for supervision of normal first in second trimester ([facility]) Supervision of normal first Anxiety and depression Dysthymic disorder Nausea and vomiting during ([facility]) 16 weeks gestation of ([facility]) state, incidental Rubella non-immune status, antepartum ([facility]) Other specified complication, antepartum Supervision of high risk in second trimester ([facility])- Primary Unspecified high-risk 20 weeks gestation of ([facility]) state, incidental Obesity in ([facility]) Obesity complicating , childbirth, or the puerperium, unspecified as to episode of care or not applicable History of suicide attempt Personal history of other mental disorder Nausea and vomiting during ([facility]) documented in this encounter [facility] note* Diagnosis Encounter for routine adult medical examination- Primary Recurrent major depressive disorder, in remission Need for vaccination Need for prophylactic vaccination and inoculation against unspecified single disease Obesity in ([facility])- Primary Obesity complicating , childbirth, or the puerperium, unspecified as to episode of care or not applicable Encounter for supervision of normal first in second trimester ([facility]) Supervision of normal first Anxiety and depression Dysthymic disorder Nausea and vomiting during ([facility]) 16 weeks gestation of ([facility]) state, incidental Rubella non-immune status, antepartum ([facility]) Other specified complication, antepartum Encounter for anatomic survey ([facility])- Primary Encounter for anatomic survey 20 weeks gestation of ([facility]) state, incidental Obesity affecting in second trimester, unspecified obesity type ([facility]) documented in this encounter [facility] note* Diagnosis Encounter for routine adult medical examination- Primary Recurrent major depressive disorder, in remission Need for vaccination Need for prophylactic vaccination and inoculation against unspecified single disease Rubella non-immune status, antepartum ([facility])- Primary Other specified complication, antepartum Obesity in ([facility])- Primary Obesity complicating , childbirth, or the puerperium, unspecified as to episode of care or not applicable Encounter for supervision of normal first in second trimester ([facility]) Supervision of normal first Anxiety and depression Dysthymic disorder Nausea and vomiting during ([facility]) 16 weeks gestation of ([facility]) state, incidental Rubella non-immune status, antepartum ([facility]) Other specified complication, antepartum documented in this encounter [facility] note* Diagnosis Encounter for routine adult medical examination- Primary Recurrent major depressive disorder, in remission Need for vaccination Need for prophylactic vaccination and inoculation against unspecified single disease Obesity in (HCC)- Primary Obesity complicating , childbirth, or the puerperium, unspecified as to episode of care or not applicable Encounter for supervision of normal first in second trimester ([facility]) Supervision of normal first Anxiety and depression Dysthymic disorder Nausea and vomiting during ([facility]) 16 weeks gestation of ([facility]) state, incidental Rubella non-immune status, antepartum ([facility]) Other specified complication, antepartum Supervision of high risk in second trimester ([facility])- Primary Unspecified high-risk 24 weeks gestation of ([facility]) state, incidental Obesity in ([facility]) Obesity complicating , childbirth, or the puerperium, unspecified as to episode of care or not applicable Rubella non-immune status, antepartum ([facility]) Other specified complication, antepartum Anxiety and depression Dysthymic disorder Supervision of high risk in third trimester ([facility]) Unspecified high-risk Obesity affecting in third trimester, unspecified obesity type ([facility]) Screening for diabetes mellitus [facility] Diagnosis Encounter for routine adult medical examination- Primary Recurrent major depressive disorder, in remission Need for vaccination Need for prophylactic vaccination and inoculation against unspecified single disease Obesity in (HCC)- Primary Obesity complicating , childbirth, or the puerperium, unspecified as to episode of care or not applicable Encounter for supervision of normal first in second trimester ([facility]) Supervision of normal first Anxiety and depression Dysthymic disorder Nausea and vomiting during ([facility]) 16 weeks gestation of ([facility]) state, incidental Rubella non-immune status, antepartum ([facility]) Other specified complication, antepartum Generalized anxiety disorder- Primary 25 weeks gestation of ([facility]) state, incidental [facility] Diagnosis Encounter for routine adult medical examination- Primary Recurrent major depressive disorder, in remission Need for vaccination Need for prophylactic vaccination and inoculation against unspecified single disease Obesity in ([facility])- Primary Obesity complicating , childbirth, or the puerperium, unspecified as to episode of care or not applicable Encounter for supervision of normal first in second trimester ([facility]) Supervision of normal first Anxiety and depression Dysthymic disorder Nausea and vomiting during ([facility]) 16 weeks gestation of ([facility]) state, incidental Rubella non-immune status, antepartum ([facility]) Other specified complication, antepartum Supervision of high risk in third trimester ([facility])- Primary Unspecified high-risk Obesity affecting in third trimester, unspecified obesity type (HCC) 28 weeks gestation of ([facility]) state, incidental Need for vaccination Need for prophylactic vaccination and inoculation against unspecified single disease documented in this encounter [facility] note* Diagnosis Encounter for routine adult medical examination- Primary Recurrent major depressive disorder, in remission Need for vaccination Need for prophylactic vaccination and inoculation against unspecified single disease Obesity in ([facility])- Primary Obesity complicating , childbirth, or the puerperium, unspecified as to episode of care or not applicable Encounter for supervision of normal first in second trimester ([facility]) Supervision of normal first Anxiety and depression Dysthymic disorder Nausea and vomiting during ([facility]) 16 weeks gestation of ([facility]) state, incidental Rubella non-immune status, antepartum ([facility]) Other specified complication, antepartum Supervision of high risk in third trimester ([facility])- Primary Unspecified high-risk Obesity affecting in third trimester, unspecified obesity type ([facility]) Anxiety and depression Dysthymic disorder 30 weeks gestation of ([facility]) state, incidental documented in this encounter [facility] note* Diagnosis Encounter for routine adult medical examination- Primary Recurrent major depressive disorder, in remission Need for vaccination Need for prophylactic vaccination and inoculation against unspecified single disease Obesity in ([facility])- Primary Obesity complicating , childbirth, or the puerperium, unspecified as to episode of care or not applicable Encounter for supervision of normal first in second trimester ([facility]) Supervision of normal first Anxiety and depression Dysthymic disorder Nausea and vomiting during ([facility]) 16 weeks gestation of ([facility]) state, incidental Rubella non-immune status, antepartum ([facility]) Other specified complication, antepartum Obesity affecting in third trimester, unspecified obesity type ([facility])- Primary Supervision of high risk in third trimester ([facility]) Unspecified high-risk Anxiety and depression Dysthymic disorder 32 weeks gestation of ([facility]) state, incidental Supervision of high risk in second trimester ([facility]) Unspecified high-risk documented in this encounter [facility] [...] supervision of normal first in second trimester ([facility]) Supervision of normal first Anxiety and depression Dysthymic disorder Nausea and vomiting during ([facility]) 16 weeks gestation of ([facility]) state, incidental Rubella non-immune status, antepartum ([facility]) Other specified complication, antepartum Obesity in (HCC)- Primary Obesity complicating , childbirth, or the puerperium, unspecified as to episode of care or not applicable Supervision of high risk in third trimester ([facility]) Unspecified high-risk Obesity affecting in third trimester, unspecified obesity type ([facility]) documented in this encounter [facility] note* Diagnosis Encounter for routine adult medical examination- Primary Recurrent major depressive disorder, in remission Need for vaccination Need for prophylactic vaccination and inoculation against unspecified single disease Obesity in (HCC)- Primary Obesity complicating , childbirth, or the puerperium, unspecified as to episode of care or not applicable Encounter for supervision of normal first in second trimester ([facility]) Supervision of normal first Anxiety and depression Dysthymic disorder Nausea and vomiting during ([facility]) 16 weeks gestation of ([facility]) state, incidental Rubella non-immune status, antepartum ([facility]) Other specified complication, antepartum Supervision of high risk in third trimester ([facility])- Primary Unspecified high-risk Obesity affecting in third trimester, unspecified obesity type ([facility]) Anxiety and depression Dysthymic disorder Rubella non-immune status, antepartum ([facility]) Other specified complication, antepartum 33 weeks gestation of ([facility]) state, incidental [facility]* Diagnosis Encounter for routine adult medical examination- Primary Recurrent major depressive disorder, in remission Need for vaccination Need for prophylactic vaccination and inoculation against unspecified single disease Obesity in (HCC)- Primary Obesity complicating , childbirth, or the puerperium, unspecified as to episode of care or not applicable Encounter for supervision of normal first in second trimester ([facility]) Supervision of normal first Anxiety and depression Dysthymic disorder Nausea and vomiting during (HCC) 16 weeks gestation of (HCC) state, incidental Rubella non-immune status, antepartum ([facility]) Other specified complication, antepartum 35 weeks gestation of ([facility])- Primary state, incidental Supervision of high risk in third trimester (HCC) Unspecified high-risk Obesity affecting in third trimester, unspecified obesity type ([facility]) documented in this encounter [facility] note* Diagnosis Encounter for routine adult medical examination- Primary Recurrent major depressive disorder, in remission Need for vaccination Need for prophylactic vaccination and inoculation against unspecified single disease Obesity in (HCC)- Primary Obesity complicating , childbirth, or the puerperium, unspecified as to episode of care or not applicable Encounter for supervision of normal first in second trimester ([facility]) Supervision of normal first Anxiety and depression Dysthymic disorder Nausea and vomiting during (HCC) 16 weeks gestation of ([facility]) state, incidental Rubella non-immune status, antepartum ([facility]) Other specified complication, antepartum Obesity in ([facility])- Primary Obesity complicating , childbirth, or the puerperium, unspecified as to episode of care or not applicable Supervision of high risk in third trimester ([facility]) Unspecified high-risk Obesity affecting in third trimester, unspecified obesity type ([facility]) documented in this encounter [facility] note* Diagnosis Encounter for routine adult medical examination- Primary Recurrent major depressive disorder, in remission Need for vaccination Need for prophylactic vaccination and inoculation against unspecified single disease Obesity in (HCC)- Primary Obesity complicating , childbirth, or the puerperium, unspecified as to episode of care or not applicable Encounter for supervision of normal first in second trimester ([facility]) Supervision of normal first Anxiety and depression Dysthymic disorder Nausea and vomiting during (HCC) 16 weeks gestation of ([facility]) state, incidental Rubella non-immune status, antepartum ([facility]) Other specified complication, antepartum Obesity affecting in third trimester, unspecified obesity type ([facility])- Primary 37 weeks gestation of ([facility]) state, incidental Supervision of high risk in second trimester ([facility]) Unspecified high-risk documented in this encounter [facility] note* Diagnosis Encounter for routine adult medical examination- Primary Recurrent major depressive disorder, in remission Need for vaccination Need for prophylactic vaccination and inoculation against unspecified single disease Obesity in (HCC)- Primary Obesity complicating , childbirth, or the puerperium, unspecified as to episode of care or not applicable Encounter for supervision of normal first in second trimester ([facility]) Supervision of normal first Anxiety and depression Dysthymic disorder Nausea and vomiting during ([facility]) 16 weeks gestation of ([facility]) state, incidental Rubella non-immune status, antepartum ([facility]) Other specified complication, antepartum Obesity affecting in third trimester, unspecified obesity type ([facility])- Primary Supervision of high risk in third trimester ([facility]) Unspecified high-risk Herpes simplex Herpes simplex without mention of complication 37 weeks gestation of ([facility]) state, incidental * Assessment & Plan Note - Esther Milligan MD - 11/30/2024 4:08 PM EDT Associated Problem(s): Herpes simplex Continue acylcovir documented in this encounter [facility] for referral (narrative)* Outpatient Procedure (Routine) - Authorized Specialty Diagnoses / Procedures Referred By Contac t Referred To Contact [facility] Diagnoses Numbness and tingling Cold extremities Procedures PVR ANK PRESS [facility] NON-INVAS PHYSIOLOGIC STD EXTREMITY ART 2 LEVEL Светлана Srinivasan APRN.MULTI MEDIA SPECIALIST [address] [place] [address] [facility] [place] [address] [place] [id number] Referral ID Status Reason Start Date Expiration Date Visits Requested Visits Authorized [id number] Authorized Auto-Generat ed Referral 01/16/2022 01/16/2023 1 1 [facility] for referral (narrative)* Diagnostic Procedure Only (Routine) - Authorized Specialty Diagnoses / Procedures Referred By Contac t Referred To Contact [facility] Diagnoses Low back pain, unspecified back pain laterality, unspecified chronicity, unspecified whether sciatica present Procedures US KIDNEY/BLADDER US RETROPERITONEAL REAL TIME W/IMAGE COMPLETE Светлана Srinivasan APRN.MULTI MEDIA SPECIALIST [address] [place] [address] [place] [address] Referral ID Status Reason Start Date Expiration Date Visits Requested Visits Authorized [id number] Authorized Auto-Generat ed Referral 06/16/2023 07/15/2024 1 1 [facility] Diagnostic Procedure Only (Routine) - Authorized Specialty Diagnoses / Procedures Referred By Contac t Referred To Contact [facility] Diagnoses Encounter for supervision of normal first in first trimester with uncertain dates, antepartum Procedures NUCHAL TRANSLUCENCY WHI US NUCHAL TRANSLUCENCY GESTATION Emilee Rose APRN.CNM [address] [place] [address] [facility] [address] [place] [address] Referral ID Status Reason Start Date Expiration Date Visits Requested Visits Authorized [id number] Authorized Auto-Generat ed Referral 05/12/2024 05/12/2025 1 1 * Diagnostic Procedure Only (Routine) - Authorized Specialty Diagnoses / Procedures Referred By Contac t Referred To Contact [facility] Diagnoses Encounter for supervision of normal first in first trimester with uncertain dates, antepartum Procedures OBSTETRIC ULTRASOUND WHI US PREG UTERUS AFTER 1ST TRIMEST GESTATION Emilee Rose APRN.CNM [address] [place] [address] [facility] [address] [place] [address] Referral ID Status Reason Start Date Expiration Date Visits Requested Visits Authorized [id number] Authorized Auto-Generat ed Referral 05/12/2024 05/12/2025 1 1 [facility] Summary Purpose Family History No [...] [facility] MDM 60-74 MINUTES Светлана Srinivasan APRN.MULTI MEDIA SPECIALIST [address] [place] [address] Referral ID Status Reason Start Date Expiration Date Visits Requested Visits Authorized [id number] Pending Review PCP Requested Referral 12/23/2022 12/23/2023 1 1 Specialty Diagnoses / Procedures Referred By Contac t Referred To Contact [facility] Diagnoses Bilateral hand pain Procedures EMG(NEURO/NI) NERVE CONDUCTION STUDIES 9-10 STUDIES Светлана Srinivasan APRN.MULTI MEDIA SPECIALIST [address] [place] [address] [facility] [place] [address] [place] [address] Referral ID Status Reason Start Date Expiration Date Visits Requested Visits Authorized [id number] Pending Review Auto-Generat ed Referral 12/23/2022 12/24/2023 1 1 Specialty Diagnoses / Procedures Referred By Contac t Referred To Contact Diagnoses Moderate episode of recurrent major depressive disorder (HCC) Procedures CONSULT TO PSYCHIATRY OFFICE/OUTPATIENT [facility] MDM 60-74 MINUTES Светлана Srinivasan APRN.MULTI MEDIA SPECIALIST [address] [place] [address] Referral ID Status Reason Start Date Expiration Date Visits Requested Visits Authorized [id number] Pending Review PCP Requested Referral 02/06/2023 02/06/2024 1 1 Additional Source Comments INFORMATION SOURCE (unrecogn ized section and content) DATE CREATED AUTHOR 10/28/2017 [facility] Aylin Delgado DATE CREATED AUTHOR AUTHOR'S ORGANIZ ATION 11/19/2023 [facility] DATE CREATED AUTHOR AUTHOR'S ORGANIZ ATION 11/24/2024 [facility] DATE CREATED AUTHOR AUTHOR'S ORGANIZ ATION 12/05/2024 [facility] Source Comments (unrecognize d section and content) In the event this informatio n is protected by the Federal Confidentiality of Alcohol and Drug Abuse Patient Records regulations: The Federal rules restrict any use of the information to criminally investigate or prosecute any alcohol or drug abuse patient.[facility] the event this information is protected by the Federal Confidentiality of Alcohol and Drug Abuse Patient Records regulations: The Federal rules restrict any use of the information to criminally investigate or prosecute any alcohol or drug abuse patient.[facility] the event this information is protected by the Federal Confidentiality of Alcohol and Drug Abuse Patient Records regulations: The Federal rules restrict any use of the information to criminally investigate or prosecute any alcohol or drug abuse patient.[facility] the event this information is protected by the Federal Confidentiality of Alcohol and Drug Abuse Patient Records regulations: The Federal rules restrict any use of the information to criminally investigate or prosecute any alcohol or drug abuse patient.[facility] the event this information is protected by the Federal Confidentiality of Alcohol and Drug Abuse Patient Records regulations: The Federal rules restrict any use of the information to criminally investigate or prosecute any alcohol or drug abuse patient.[facility] the event this information is protected by the Federal Confidentiality of Alcohol and Drug Abuse Patient Records regulations: The Federal rules restrict any use of the information to criminally investigate or prosecute any alcohol or drug abuse patient.[facility] the event this information is protected by the Federal Confidentiality of Alcohol and Drug Abuse Patient Records regulations: The Federal rules restrict any use of the information to criminally investigate or prosecute any alcohol or drug abuse patient.[facility] the event this information is protected by the Federal Confidentiality of Alcohol and Drug Abuse Patient Records regulations: The Federal rules restrict any use of the information to criminally investigate or prosecute any alcohol or drug abuse patient.[facility] [facility] the event this information is protected by the Federal Confidentiality of Alcohol and Drug Abuse Patient Records regulations: The Federal rules restrict any use of the information to criminally investigate or prosecute any alcohol or drug abuse patient.[facility] CenterIn the event this information is protected by the Federal Confidentiality of Alcohol and Drug Abuse Patient Records regulations: The Federal rules restrict any use of the information to criminally investigate or prosecute any alcohol or drug abuse patient.[facility] CenterIn the event this information is protected by the Federal Confidentiality of Alcohol and Drug Abuse Patient Records regulations: The Federal rules restrict any use of the information to criminally investigate or prosecute any alcohol or drug abuse patient.[facility] CenterIn the event this information is protected by the Federal Confidentiality of Alcohol and Drug Abuse Patient Records regulations: The Federal rules restrict any use of the information to criminally investigate or prosecute any alcohol or drug abuse patient.[facility] CenterIn the event this information is protected by the Federal Confidentiality of Alcohol and Drug Abuse Patient Records regulations: The Federal rules restrict any use of the information to criminally investigate or prosecute any alcohol or drug abuse patient.[facility] CenterIn the event this information is protected by the Federal Confidentiality of Alcohol and Drug Abuse Patient Records regulations: The Federal rules restrict any use of the information to criminally investigate or prosecute any alcohol or drug abuse patient.[facility] CenterIn the event this information is protected by the Federal Confidentiality of Alcohol and Drug Abuse Patient Records regulations: The Federal rules restrict any use of the information to criminally investigate or prosecute any alcohol or drug abuse patient.[facility] CenterIn the event this information is protected by the Federal Confidentiality of Alcohol and Drug Abuse Patient Records regulations: The Federal rules restrict any use of the information to criminally investigate or prosecute any alcohol or drug abuse patient.[facility] CenterIn the event this information is protected by the Federal Confidentiality of Alcohol and Drug Abuse Patient Records regulations: The Federal rules restrict any use of the information to criminally investigate or prosecute any alcohol or drug abuse patient.[facility] CenterIn the event this information is protected by the Federal Confidentiality of Alcohol and Drug Abuse Patient Records regulations: The Federal rules restrict any use of the information to criminally investigate or prosecute any alcohol or drug abuse patient.[facility] CenterIn the event this information is protected by the Federal Confidentiality of Alcohol and Drug Abuse Patient Records regulations: The Federal rules restrict any use of the information to criminally investigate or prosecute any alcohol or drug abuse patient.[facility] CenterIn the event this information is protected by the Federal Confidentiality of Alcohol and Drug Abuse Patient Records regulations: The Federal rules restrict any use of the information to criminally investigate or prosecute any alcohol or drug abuse patient.[facility] CenterIn the event this information is protected by the Federal Confidentiality of Alcohol and Drug Abuse Patient Records regulations: The Federal rules restrict any use of the information to criminally investigate or prosecute any alcohol or drug abuse patient.[facility] CenterIn the event this information is protected by the Federal Confidentiality of Alcohol and Drug Abuse Patient Records regulations: The Federal rules restrict any use of the information to criminally investigate or prosecute any alcohol or drug abuse patient.[facility] CenterIn the event this information is protected by the Federal Confidentiality of Alcohol and Drug Abuse Patient Records regulations: The Federal rules restrict any use of the information to criminally investigate or prosecute any alcohol or drug abuse patient.[facility] CenterIn the event this information is protected by the Federal Confidentiality of Alcohol and Drug Abuse Patient Records regulations: The Federal rules restrict any use of the information to criminally investigate or prosecute any alcohol or drug abuse patient.[facility] CenterIn the event this information is protected by the Federal Confidentiality of Alcohol and Drug Abuse Patient Records regulations: The Federal rules restrict any use of the information to criminally investigate or prosecute any alcohol or drug abuse patient.[facility] CenterIn the event this information is protected by the Federal Confidentiality of Alcohol and Drug Abuse Patient Records regulations: The Federal rules restrict any use of the information to criminally investigate or prosecute any alcohol or drug abuse patient.[facility] CenterIn the event this information is protected by the Federal Confidentiality of Alcohol and Drug Abuse Patient Records regulations: The Federal rules restrict any use of the information to criminally investigate or prosecute any alcohol or drug abuse patient.[facility] CenterIn the event this information is protected by the Federal Confidentiality of Alcohol and Drug Abuse Patient Records regulations: The Federal rules restrict any use of the information to criminally investigate or prosecute any alcohol or drug abuse patient.[facility] CenterIn the event this information is protected by the Federal Confidentiality of Alcohol and Drug Abuse Patient Records regulations: The Federal rules restrict any use of the information to criminally investigate or prosecute any alcohol or drug abuse patient.[facility] CenterIn the event this information is protected by the Federal Confidentiality of Alcohol and Drug Abuse Patient Records regulations: The Federal rules restrict any use of the information to criminally investigate or prosecute any alcohol or drug abuse patient.[facility] CenterIn the event this information is protected by the Federal Confidentiality of Alcohol and Drug Abuse Patient Records regulations: The Federal rules restrict any use of the information to criminally investigate or prosecute any alcohol or drug abuse patient.[facility] CenterIn the event this information is protected by the Federal Confidentiality of Alcohol and Drug Abuse Patient Records regulations: The Federal rules restrict any use of the information to criminally investigate or prosecute any alcohol or drug abuse patient.[facility] CenterIn the event this information is protected by the Federal Confidentiality of Alcohol and Drug Abuse Patient Records regulations: The Federal rules restrict any use of the information to criminally investigate or prosecute any alcohol or drug abuse patient.[facility] CenterIn the event this information is protected by the Federal Confidentiality of Alcohol and Drug Abuse Patient Records regulations: The Federal rules restrict any use of the information to criminally investigate or prosecute any alcohol or drug abuse patient.[facility] CenterIn the event this information is protected by the Federal Confidentiality of Alcohol and Drug Abuse Patient Records regulations: The Federal rules restrict any use of the information to criminally investigate or prosecute any alcohol or drug abuse patient.[facility] CenterIn the event this information is protected by the Federal Confidentiality of Alcohol and Drug Abuse Patient Records regulations: The Federal rules restrict any use of the information to criminally investigate or prosecute any alcohol or drug abuse patient.[facility] CenterIn the event this information is protected by the Federal Confidentiality of Alcohol and Drug Abuse Patient Records regulations: The Federal rules restrict any use of the information to criminally investigate or prosecute any alcohol or drug abuse patient.[facility] CenterIn the event this information is protected by the Federal Confidentiality of Alcohol and Drug Abuse Patient Records regulations: The Federal rules restrict any use of the information to criminally investigate or prosecute any alcohol or drug abuse patient.[facility] CenterIn the event this information is protected by the Federal Confidentiality of Alcohol and Drug Abuse Patient Records regulations: The Federal rules restrict any use of the information to criminally investigate or prosecute any alcohol or drug abuse patient.[facility] CenterIn the event this information is protected by the Federal Confidentiality of Alcohol and Drug Abuse Patient Records regulations: The Federal rules restrict any use of the information to criminally investigate or prosecute any alcohol or drug abuse patient.[facility] CenterIn the event this information is protected by the Federal Confidentiality of Alcohol and Drug Abuse Patient Records regulations: The Federal rules restrict any use of the information to criminally investigate or prosecute any alcohol or drug abuse patient.[facility] CenterIn the event this information is protected by the Federal Confidentiality of Alcohol and Drug Abuse Patient Records regulations: The Federal rules restrict any use of the information to criminally investigate or prosecute any alcohol or drug abuse patient.[facility] CenterIn the event this information is protected by the Federal Confidentiality of Alcohol and Drug Abuse Patient Records regulations: The Federal rules restrict any use of the information to criminally investigate or prosecute any alcohol or drug abuse patient.[facility] the event this information is protected by the Federal Confidentiality of Alcohol and Drug Abuse Patient Records regulations: The Federal rules restrict any use of the information to criminally investigate or prosecute any alcohol or drug abuse patient.[facility] CenterIn the event this information is protected by the Federal Confidentiality of Alcohol and Drug Abuse Patient Records regulations: The Federal rules restrict any use of the information to criminally investigate or prosecute any alcohol or drug abuse patient.[facility] CenterIn the event this information is protected by the Federal Confidentiality of Alcohol and Drug Abuse Patient Records regulations: The Federal rules restrict any use of the information to criminally investigate or prosecute any alcohol or drug abuse patient.[facility] CenterIn the event this information is protected by the Federal Confidentiality of Alcohol and Drug Abuse Patient Records regulations: The Federal rules restrict any use of the information to criminally investigate or prosecute any alcohol or drug abuse patient.[facility] CenterIn the event this information is protected by the Federal Confidentiality of Alcohol and Drug Abuse Patient Records regulations: The Federal rules restrict any use of the information to criminally investigate or prosecute any alcohol or drug abuse patient.[facility] CenterIn the event this information is protected by the Federal Confidentiality of Alcohol and Drug Abuse Patient Records regulations: The Federal rules restrict any use of the information to criminally investigate or prosecute any alcohol or drug abuse patient.[facility] CenterIn the event this information is protected by the Federal Confidentiality of Alcohol and Drug Abuse Patient Records regulations: The Federal rules restrict any use of the information to criminally investigate or prosecute any alcohol or drug abuse patient.[facility] CenterIn the event this information is protected by the Federal Confidentiality of Alcohol and Drug Abuse Patient Records regulations: The Federal rules restrict any use of the information to criminally investigate or prosecute any alcohol or drug abuse patient.[facility] CenterIn the event this information is protected by the Federal Confidentiality of Alcohol and Drug Abuse Patient Records regulations: The Federal rules restrict any use of the information to criminally investigate or prosecute any alcohol or drug abuse patient.[facility] CenterIn the event this information is protected by the Federal Confidentiality of Alcohol and Drug Abuse Patient Records regulations: The Federal rules restrict any use of the information to criminally investigate or prosecute any alcohol or drug abuse patient.[facility] CenterIn the event this information is protected by the Federal Confidentiality of Alcohol and Drug Abuse Patient Records regulations: The Federal rules restrict any use of the information to criminally investigate or prosecute any alcohol or drug abuse patient.[facility] CenterIn the event this information is protected by the Federal Confidentiality of Alcohol and Drug Abuse Patient Records regulations: The Federal rules restrict any use of the information to criminally investigate or prosecute any alcohol or drug abuse patient.[facility] CenterIn the event this information is protected by the Federal Confidentiality of Alcohol and Drug Abuse Patient Records regulations: The Federal rules restrict any use of the information to criminally investigate or prosecute any alcohol or drug abuse patient.[facility] CenterIn the event this information is protected by the Federal Confidentiality of Alcohol and Drug Abuse Patient Records regulations: The Federal rules restrict any use of the information to criminally investigate or prosecute any alcohol or drug abuse patient.[facility] CenterIn the event this information is protected by the Federal Confidentiality of Alcohol and Drug Abuse Patient Records regulations: The Federal rules restrict any use of the information to criminally investigate or prosecute any alcohol or drug abuse patient.[facility] CenterIn the event this information is protected by the Federal Confidentiality of Alcohol and Drug Abuse Patient Records regulations: The Federal rules restrict any use of the information to criminally investigate or prosecute any alcohol or drug abuse patient.[facility] CenterIn the event this information is protected by the Federal Confidentiality of Alcohol and Drug Abuse Patient Records regulations: The Federal rules restrict any use of the information to criminally investigate or prosecute any alcohol or drug abuse patient.[facility] CenterIn the event this information is protected by the Federal Confidentiality of Alcohol and Drug Abuse Patient Records regulations: The Federal rules restrict any use of the information to criminally investigate or prosecute any alcohol or drug abuse patient.[facility] CenterIn the event this information is protected by the Federal Confidentiality of Alcohol and Drug Abuse Patient Records regulations: The Federal rules restrict any use of the information to criminally investigate or prosecute any alcohol or drug abuse patient.[facility] CenterIn the event this information is protected by the Federal Confidentiality of Alcohol and Drug Abuse Patient Records regulations: The Federal rules restrict any use of the information to criminally investigate or prosecute any alcohol or drug abuse patient.[facility] CenterIn the event this information is protected by the Federal Confidentiality of Alcohol and Drug Abuse Patient Records regulations: The Federal rules restrict any use of the information to criminally investigate or prosecute any alcohol or drug abuse patient.[facility]In the event this information is protected by the Federal Confidentiality of Alcohol and Drug Abuse Patient Records regulations: The Federal rules restrict any use of the information to criminally investigate or prosecute any alcohol or drug abuse patient.[facility] CenterIn the event this information is protected by the Federal Confidentiality of Alcohol and Drug Abuse Patient Records regulations: The Federal rules restrict any use of the information to criminally investigate or prosecute any alcohol or drug abuse patient.[facility] CenterIn the event this information is protected by the Federal Confidentiality of Alcohol and Drug Abuse Patient Records regulations: The Federal rules restrict any use of the information to criminally investigate or prosecute any alcohol or drug abuse patient.[facility] CenterIn the event this information is protected by the Federal Confidentiality of Alcohol and Drug Abuse Patient Records regulations: The Federal rules restrict any use of the information to criminally investigate or prosecute any alcohol or drug abuse patient.[facility] CenterIn the event this information is protected by the Federal Confidentiality of Alcohol and Drug Abuse Patient Records regulations: The Federal rules restrict any use of the information to criminally investigate or prosecute any alcohol or drug abuse patient.[facility] CenterIn the event this information is protected by the Federal Confidentiality of Alcohol and Drug Abuse Patient Records regulations: The Federal rules restrict any use of the information to criminally investigate or prosecute any alcohol or drug abuse patient.[facility] CenterIn the event this information is protected by the Federal Confidentiality of Alcohol and Drug Abuse Patient Records regulations: The Federal rules restrict any use of the information to criminally investigate or prosecute any alcohol or drug abuse patient.[facility] CenterIn the event this information is protected by the Federal Confidentiality of Alcohol and Drug Abuse Patient Records regulations: The Federal rules restrict any use of the information to criminally investigate or prosecute any alcohol or drug abuse patient.[facility] CenterIn the event this information is protected by the Federal Confidentiality of Alcohol and Drug Abuse Patient Records regulations: The Federal rules restrict any use of the information to criminally investigate or prosecute any alcohol or drug abuse patient.[facility] CenterIn the event this information is protected by the Federal Confidentiality of Alcohol and Drug Abuse Patient Records regulations: The Federal rules restrict any use of the information to criminally investigate or prosecute any alcohol or drug abuse patient.[facility] CenterIn the event this information is protected by the Federal Confidentiality of Alcohol and Drug Abuse Patient Records regulations: The Federal rules restrict any use of the information to criminally investigate or prosecute any alcohol or drug abuse patient.[facility]In the event this information is protected by the Federal Confidentiality of Alcohol and Drug Abuse Patient Records regulations: The Federal rules restrict any use of the information to criminally investigate or prosecute any alcohol or drug abuse patient.[facility] CenterIn the event this information is protected by the Federal Confidentiality of Alcohol and Drug Abuse Patient Records regulations: The Federal rules restrict any use of the information to criminally investigate or prosecute any alcohol or drug abuse patient.[facility]In the event this information is protected by the Federal Confidentiality of Alcohol and Drug Abuse Patient Records regulations: The Federal rules restrict any use of the information to criminally investigate or prosecute any alcohol or drug abuse patient.[facility]In the event this information is protected by the Federal Confidentiality of Alcohol and Drug Abuse Patient Records regulations: The Federal rules restrict any use of the information to criminally investigate or prosecute any alcohol or drug abuse patient.[facility] CenterIn the event this information is protected by the Federal Confidentiality of Alcohol and Drug Abuse Patient Records regulations: The Federal rules restrict any use of the information to criminally investigate or prosecute any alcohol or drug abuse patient.[facility]In the event this information is protected by the Federal Confidentiality of Alcohol and Drug Abuse Patient Records regulations: The Federal rules restrict any use of the information to criminally investigate or prosecute any alcohol or drug abuse patient.[facility]In the event this information is protected by the Federal Confidentiality of Alcohol and Drug Abuse Patient Records regulations: The Federal rules restrict any use of the information to criminally investigate or prosecute any alcohol or drug abuse patient.[facility]In the event this information is protected by the Federal Confidentiality of Alcohol and Drug Abuse Patient Records regulations: The Federal rules restrict any use of the information to criminally investigate or prosecute any alcohol or drug abuse patient.[facility]In the event this information is protected by the Federal Confidentiality of Alcohol and Drug Abuse Patient Records regulations: The Federal rules restrict any use of the information to criminally investigate or prosecute any alcohol or drug abuse patient.[facility] CenterIn the event this information is protected by the Federal Confidentiality of Alcohol and Drug Abuse Patient Records regulations: The Federal rules restrict any use of the information to criminally investigate or prosecute any alcohol or drug abuse patient.[facility]In the event this information is protected by the Federal Confidentiality of Alcohol and Drug Abuse Patient Records regulations: The Federal rules restrict any use of the information to criminally investigate or prosecute any alcohol or drug abuse patient.[facility]In the event this information is protected by the Federal Confidentiality of Alcohol and Drug Abuse Patient Records regulations: The Federal rules restrict any use of the information to criminally investigate or prosecute any alcohol or drug abuse patient.[facility]In the event this information is protected by the Federal Confidentiality of Alcohol and Drug Abuse Patient Records regulations: The Federal rules restrict any use of the information to criminally investigate or prosecute any alcohol or drug abuse patient.[facility] CenterIn the event this information is protected by the Federal Confidentiality of Alcohol and Drug Abuse Patient Records regulations: The Federal rules restrict any use of the information to criminally investigate or prosecute any alcohol or drug abuse patient.[facility] CenterIn the event this information is protected by the Federal Confidentiality of Alcohol and Drug Abuse Patient Records regulations: The Federal rules restrict any use of the information to criminally investigate or prosecute any alcohol or drug abuse patient.[facility] CenterIn the event this information is protected by the Federal Confidentiality of Alcohol and Drug Abuse Patient Records regulations: The Federal rules restrict any use of the information to criminally investigate or prosecute any alcohol or drug abuse patient.[facility] CenterIn the event this information is protected by the Federal Confidentiality of Alcohol and Drug Abuse Patient Records regulations: The Federal rules restrict any use of the information to criminally investigate or prosecute any alcohol or drug abuse patient.[facility] CenterIn the event this information is protected by the Federal Confidentiality of Alcohol and Drug Abuse Patient Records regulations: The Federal rules restrict any use of the information to criminally investigate or prosecute any alcohol or drug abuse patient.[facility] the event this information is protected by the Federal Confidentiality of Alcohol and Drug Abuse Patient Records regulations: The Federal rules restrict any use of the information to criminally investigate or prosecute any alcohol or drug abuse patient.[facility] CenterIn the event this information is protected by the Federal Confidentiality of Alcohol and Drug Abuse Patient Records regulations: The Federal rules restrict any use of the information to criminally investigate or prosecute any alcohol or drug abuse patient.[facility] CenterIn the event this information is protected by the Federal Confidentiality of Alcohol and Drug Abuse Patient Records regulations: The Federal rules restrict any use of the information to criminally investigate or prosecute any alcohol or drug abuse patient.[facility] CenterIn the event this information is protected by the Federal Confidentiality of Alcohol and Drug Abuse Patient Records regulations: The Federal rules restrict any use of the information to criminally investigate or prosecute any alcohol or drug abuse patient.[facility] CenterIn the event this information is protected by the Federal Confidentiality of Alcohol and Drug Abuse Patient Records regulations: The Federal rules restrict any use of the information to criminally investigate or prosecute any alcohol or drug abuse patient.[facility] CenterIn the event this information is protected by the Federal Confidentiality of Alcohol and Drug Abuse Patient Records regulations: The Federal rules restrict any use of the information to criminally investigate or prosecute any alcohol or drug abuse patient.[facility] CenterIn the event this information is protected by the Federal Confidentiality of Alcohol and Drug Abuse Patient Records regulations: The Federal rules restrict any use of the information to criminally investigate or prosecute any alcohol or drug abuse patient.[facility] CenterIn the event this information is protected by the Federal Confidentiality of Alcohol and Drug Abuse Patient Records regulations: The Federal rules restrict any use of the information to criminally investigate or prosecute any alcohol or drug abuse patient.[facility] CenterIn the event this information is protected by the Federal Confidentiality of Alcohol and Drug Abuse Patient Records regulations: The Federal rules restrict any use of the information to criminally investigate or prosecute any alcohol or drug abuse patient.[facility] CenterIn the event this information is protected by the Federal Confidentiality of Alcohol and Drug Abuse Patient Records regulations: The Federal rules restrict any use of the information to criminally investigate or prosecute any alcohol or drug abuse patient.[facility] CenterIn the event this information is protected by the Federal Confidentiality of Alcohol and Drug Abuse Patient Records regulations: The Federal rules restrict any use of the information to criminally investigate or prosecute any alcohol or drug abuse patient.[facility] CenterIn the event this information is protected by the Federal Confidentiality of Alcohol and Drug Abuse Patient Records regulations: The Federal rules restrict any use of the information to criminally investigate or prosecute any alcohol or drug abuse patient.[facility] CenterIn the event this information is protected by the Federal Confidentiality of Alcohol and Drug Abuse Patient Records regulations: The Federal rules restrict any use of the information to criminally investigate or prosecute any alcohol or drug abuse patient.[facility] CenterIn the event this information is protected by the Federal Confidentiality of Alcohol and Drug Abuse Patient Records regulations: The Federal rules restrict any use of the information to criminally investigate or prosecute any alcohol or drug abuse patient.[facility] Reason for Visit (unrecogniz ed section and content) Reason Comments Follow Up Specialty Diagnoses / Procedures Referred By Rasta cash Referred To Contact Psychiatry / ADULT PSYCHIATRY Diagnoses 3 month follow up Procedures VIDEO PSYC/PSYL EST Dyan Corey, MUNICIPAL FIREFIGHTER.MULTI MEDIA SPECIALIST [address] [place] [address] Dyan Corey, MUNICIPAL FIREFIGHTER.MULTI MEDIA SPECIALIST [address] [place] [address] Referral ID Status Reason Start Date Expiration Date V isits Requested Visits Authorized [id number] New Request 03/29/2024 06/27/2024 1 1 Reason [...] this time.date. Procedures VIDEO PSYC/PSYL Светлана Thompson, MUNICIPAL FIREFIGHTER.MULTI MEDIA SPECIALIST [address] [place] [address] Dyan Corey, MUNICIPAL FIREFIGHTER.MULTI MEDIA SPECIALIST [address] [place] [address] Referral ID Status Reason Start Date Expiration Date V isits Requested Visits Authorized [id number] Pending Review 02/12/2023 05/13/2023 1 1 Reason [...] RETROPERITONEAL REAL TIME W/IMAGE COMPLETE Светлана Srinivasan, MUNICIPAL FIREFIGHTER.MULTI MEDIA SPECIALIST [address] [place] [address] [place] [address] Referral ID Status Reason Start Date Expiration Date V isits Requested Visits Authorized [id number] Closed Auto-Generate d Referral 06/16/2023 07/15/2024 1 [...] check Procedures EST PSYC ADULT Dyan Corey, MUNICIPAL FIREFIGHTER.MULTI MEDIA SPECIALIST [address] [place] [address] Dyan Corey, MUNICIPAL FIREFIGHTER.MULTI MEDIA SPECIALIST [address] [place] [address] Referral ID Status Reason Start Date Expiration Date V isits Requested Visits Authorized [id number] New Request 06/01/2024 08/30/2024 1 1 Reason Comments US Specialty Diagnoses / Procedures Referred By Rasta cash Referred To Contact [facility] Diagnoses Encounter for supervision of normal first in first trimester with uncertain dates, antepartum Procedures NUCHAL TRANSLUCENCY WHI US NUCHAL TRANSLUCENCY 1ST GESTATION Emilee Rose, [place] [address] [address] Referral ID Status Reason Start Date Expiration Date V isits Requested Visits Authorized [id number] Closed Auto-Generate d Referral 05/12/2024 05/12/2025 1 1 Reason Onset Date Comments Care 06/09/2024 Reason Comments Orders Appointment Reason Comments Acute Visit cold Reason Onset Date Comments Care 06/22/2024 Reason Comments FMLA Paperwork Reason Onset Date Comments Refill Request 06/23/2024 Reason Comments Behavioral Health Appointment Specialty Diagnoses / Procedures Referred By Contac t Referred To Contact [facility] Diagnoses Obesity in Supervision of high risk in first trimester Procedures OBSTETRIC ULTRASOUND WHI US PREG UTERUS AFTER 1ST TRIMEST GESTATION Emilee Rose, MUNICIPAL FIREFIGHTER.CN [address] [place] [address] Phone: tel: fax: [address] [address] Referral ID Status Reason Start Date Expiration Date V isits Requested Visits Authorized [id number] Closed Auto-Generate d Referral 06/15/2024 06/15/2025 1 1 Reason Onset Date Comments Care 07/07/2024 Reason Onset Date Comments Refill Request 07/10/2024 Reason Onset Date Comments Refill Request 07/28/2024 Reason Comments Follow Up Specialty Diagnoses / Procedures Referred By Contac t Referred To Contact Psychiatry / ADULT PSYCHIATRY Diagnoses 2 month follow up Procedures EST PS ADULT Dyan Corey, MUNICIPAL FIREFIGHTER.MULTI MEDIA SPECIALIST [address] [place] [address] Phone: tel: fax: Dyan Corey, MUNICIPAL FIREFIGHTER.MULTI MEDIA SPECIALIST [address] [place] [address] Phone: tel: fax: Referral ID Status Reason Start Date Expiration Date V isits Requested Visits Authorized [id number] New Request 07/27/2024 10/25/2024 1 1 Reason Onset Date Comments Care 08/04/2024 Specialty Diagnoses / Procedures Referred By Rasta t Referred To Contact [facility] Diagnoses Encounter for supervision of normal first in first trimester (HCC) with uncertain dates, antepartum (HCC) Procedures OBSTETRIC ULTRASOUND WHI US PREG UTERUS AFTER 1ST TRIMEST GESTATION Emilee Rose APRN.CNM [address] [place] [address] Phone: tel: fax: [facility] [address] [place] [address] Referral ID Status Reason Start Date Expiration Date V isits Requested Visits Authorized [id number] Closed Auto-Generate d Referral 05/12/2024 05/12/2025 1 1 Reason Onset Date Comments Refill Request 08/11/2024 Reason Onset Date Comments Care 09/01/2024 Specialty Diagnoses / Procedures Referred By Rasta t Referred To Contact Psychiatry / ADULT PSYCHIATRY Diagnoses PROVIDER ORDER FOLLOW UP Procedures VIDEO PSYC/PSYL EST Dyan Corey, MUNICIPAL FIREFIGHTER.MULTI MEDIA SPECIALIST [address] [place] [address] Phone: tel: fax: Dyan Corey, MUNICIPAL FIREFIGHTER.MULTI MEDIA SPECIALIST [address] [place] [address] Phone: tel: fax: Referral ID Status Reason Start Date Expiration Date V isits Requested Visits Authorized [id number] New Request 09/07/2024 12/06/2024 1 1 Reason Onset Date Comments Care 09/28/2024 Reason Onset Date Comments Refill Request 10/06/2024 Reason Onset Date Comments Care 10/13/2024 Specialty Diagnoses / Procedures Referred By Contjacques t Referred To Contact [facility] Diagnoses Supervision of high risk in third trimester (HCC) Obesity affecting in third trimester, unspecified obesity type (HCC) Procedures OBSTETRIC ULTRASOUND WHI US PREG UTERUS AFTER 1ST TRIMEST GESTATION Emilee Rose APRN.CNM [address] [place] [place] [address] Phone: tel: fax: [facility] [address] [place] [address] Referral ID Status Reason Start Date Expiration Date V isits Requested Visits Authorized [id number] Closed Auto-Generate d Referral 09/01/2024 09/01/2025 3 1 Reason Onset Date Comments Care 11/02/2024 Reason Comments Refill Request Reason Onset Date Comments Refill Request 11/13/2024 Reason Onset Date Comments Care 11/17/2024 Reason Onset Date Comments Care 11/25/2024 Reason Onset Date Comments Care 11/30/2024 Reason Onset Date Comments Population Health Navigation Outreach 12/02/2024 to PCP/OB Care Teams (unrecognized sec tion and content) Border Measurer Relationship Specialty Start Date End Date Светлана Srinivasan, MUNICIPAL FIREFIGHTER.MULTI MEDIA SPECIALIST [address] [place] [address] PCP - General Family Practice 09/26/21 Border Measurer Relationship Specialty Start Date End Date Светлана Srinivasan, MUNICIPAL FIREFIGHTER.MULTI MEDIA SPECIALIST [address] [place] [address] PCP - General Family Practice 09/26/21 Border Measurer Relationship Specialty Start Date End Date Светлана Srinivasan, MUNICIPAL FIREFIGHTER.MULTI MEDIA SPECIALIST [address] [place] [address] PCP - General Family Practice 09/26/21 Border Measurer Relationship Specialty Start Date End Date Светлана Srinivasan, MUNICIPAL FIREFIGHTER.MULTI MEDIA SPECIALIST [address] [place] [address] PCP - General Family Practice 09/26/21 Border Measurer Relationship Specialty Start Date End Date Светлана Srinivasan, MUNICIPAL FIREFIGHTER.MULTI MEDIA SPECIALIST [address] [place] [address] PCP - General Family Practice 09/26/21 Border Measurer Relationship Specialty Start Date End Date Светлана Srinivasan, MUNICIPAL FIREFIGHTER.MULTI MEDIA SPECIALIST [address] [place] [address] PCP - General Family Practice 09/26/21 Border Measurer Relationship Specialty Start Date End Date Светлана Srinivasan, MUNICIPAL FIREFIGHTER.MULTI MEDIA SPECIALIST [address] [place] [address] PCP - General Family Medicine 09/26/21 Border Measurer Relationship Specialty Start Date End Date Светлана Srinivasan, MUNICIPAL FIREFIGHTER.MULTI MEDIA SPECIALIST [address] [place] [address] PCP - General Family Medicine 09/26/21 Border Measurer Relationship Specialty Start Date End Date Светлана Srinivasan, MUNICIPAL FIREFIGHTER.MULTI MEDIA SPECIALIST [address] [place] [address] PCP - General Family Medicine 09/26/21 Border Measurer Relationship Specialty Start Date End Date Светлана Srinivasan, MUNICIPAL FIREFIGHTER.MULTI MEDIA SPECIALIST [address] [place] [address] PCP - General Family Medicine 09/26/21 Border Measurer Relationship Specialty Start Date End Date Светлана Srinivasan, MUNICIPAL FIREFIGHTER.MULTI MEDIA SPECIALIST [address] [place] [address] PCP - General Family Medicine 09/26/21 Border Measurer Relationship Specialty Start Date End Date Светлана Srinivasan, MUNICIPAL FIREFIGHTER.MULTI MEDIA SPECIALIST [address] [place] [address] PCP - General Family Medicine 09/26/21 Border Measurer Relationship Specialty Start Date End Date Светлана Srinivasan, MUNICIPAL FIREFIGHTER.MULTI MEDIA SPECIALIST [address] [place] [address] PCP - General Family Medicine 09/26/21 Border Measurer Relationship Specialty Start Date End Date Светлана Srinivasan, MUNICIPAL FIREFIGHTER.MULTI MEDIA SPECIALIST [address] [place] [address] PCP - General Family Medicine 09/26/21 Border Measurer Relationship Specialty Start Date End Date Светлана Srinivasan, MUNICIPAL FIREFIGHTER.MULTI MEDIA SPECIALIST [address] [place] [address] PCP - General Family Medicine 09/26/21 Border Measurer Relationship Specialty Start Date End Date Светлана Srinivasan, MUNICIPAL FIREFIGHTER.MULTI MEDIA SPECIALIST [address] [place] [address] PCP - General Family Medicine 09/26/21 Border Measurer Relationship Specialty Start Date End Date Светлана Srinivasan, MUNICIPAL FIREFIGHTER.MULTI MEDIA SPECIALIST [address] [place] [address] PCP - General Family Medicine 09/26/21 Border Measurer Relationship Specialty Start Date End Date Светлана Srinivasan, MUNICIPAL FIREFIGHTER.MULTI MEDIA SPECIALIST [address] [place] [address] PCP - General Family Medicine 09/26/21 Border Measurer Relationship Specialty Start Date End Date Светлана Srinivasan, MUNICIPAL FIREFIGHTER.MULTI MEDIA SPECIALIST [address] [place] [address] PCP - General Family Medicine 09/26/21 Border Measurer Relationship Specialty Start Date End Date Светлана Srinivasan, MUNICIPAL FIREFIGHTER.MULTI MEDIA SPECIALIST [address] [place] [address] PCP - General Family Medicine 09/26/21 Border Measurer Relationship Specialty Start Date End Date Светлана Srinivasan, MUNICIPAL FIREFIGHTER.MULTI MEDIA SPECIALIST [address] [place] [address] PCP - General Family Medicine 09/26/21 Border Measurer Relationship Specialty Start Date End Date Светлана Srinivasan, MUNICIPAL FIREFIGHTER.MULTI MEDIA SPECIALIST [address] [place] [address] PCP - General Family Medicine 09/26/21 Border Measurer Relationship Specialty Start Date End Date Светлана Srinivasan, MUNICIPAL FIREFIGHTER.MULTI MEDIA SPECIALIST [address] [facility] [address] PCP - General Family Medicine 09/26/21 Border Measurer Relationship Specialty Start Date End Date Светлана Srinivasan, MUNICIPAL FIREFIGHTER.MULTI MEDIA SPECIALIST [address] [place] [address] PCP - General Family Medicine 09/26/21 Border Measurer Relationship Specialty Start Date End Date Светлана Srinivasan, MUNICIPAL FIREFIGHTER.MULTI MEDIA SPECIALIST [address] [place] [address] PCP - General Family Medicine 09/26/21 Border Measurer Relationship Specialty Start Date End Date Светлана Srinivasan, MUNICIPAL FIREFIGHTER.MULTI MEDIA SPECIALIST [address] [place] [address] PCP - General Family Medicine 09/26/21 Border Measurer Relationship Specialty Start Date End Date Светлана Srinivasan, MUNICIPAL FIREFIGHTER.MULTI MEDIA SPECIALIST [address] [place] [address] PCP - General Family Medicine 09/26/21 Border Measurer Relationship Specialty Start Date End Date Светлана Srinivasan, MUNICIPAL FIREFIGHTER.MULTI MEDIA SPECIALIST [address] [place] [address] PCP - General Family Medicine 09/26/21 Border Measurer Relationship Specialty Start Date End Date Светлана Srinivasan, MUNICIPAL FIREFIGHTER.MULTI MEDIA SPECIALIST [address] [place] [address] PCP - General Family Medicine 09/26/21 Border Measurer Relationship Specialty Start Date End Date Светлана Srinivasan, MUNICIPAL FIREFIGHTER.MULTI MEDIA SPECIALIST [address] [place] [address] PCP - General Family Medicine 09/26/21 Border Measurer Relationship Specialty Start Date End Date Светлана Srinivasan, MUNICIPAL FIREFIGHTER.MULTI MEDIA SPECIALIST [address] [place] [address] PCP - General Family Medicine 09/26/21 Border Measurer Relationship Specialty Start Date End Date Светлана Srinivasan, MUNICIPAL FIREFIGHTER.MULTI MEDIA SPECIALIST [address] [place] [address] PCP - General Family Medicine 09/26/21 Border Measurer Relationship Specialty Start Date End Date Светлана Srinivasan, MUNICIPAL FIREFIGHTER.MULTI MEDIA SPECIALIST [address] [place] [address] PCP - General Family Medicine 09/26/21 Border Measurer Relationship Specialty Start Date End Date Светлана Srinivasan, MUNICIPAL FIREFIGHTER.MULTI MEDIA SPECIALIST [address] [place] [address] PCP - General Family Medicine 09/26/21 Border Measurer Relationship Specialty Start Date End Date Светлана Srinivasan, MUNICIPAL FIREFIGHTER.MULTI MEDIA SPECIALIST [address] [place] [address] PCP - General Family Medicine 09/26/21 Border Measurer Relationship Specialty Start Date End Date Светлана Srinivasan, MUNICIPAL FIREFIGHTER.MULTI MEDIA SPECIALIST [address] [place] [address] PCP - General Family Medicine 09/26/21 Border Measurer Relationship Specialty Start Date End Date Светлана Srinivasan, MUNICIPAL FIREFIGHTER.MULTI MEDIA SPECIALIST [address] [place] [address] PCP - General Family Medicine 09/26/21 Border Measurer Relationship Specialty Start Date End Date Светлана Srinivasan, MUNICIPAL FIREFIGHTER.MULTI MEDIA SPECIALIST [address] [place] [address] PCP - General Family Medicine 09/26/21 Border Measurer Relationship Specialty Start Date End Date Светлана Srinivasan APRN.MULTI MEDIA SPECIALIST [address] [place] [address] PCP - General Family Medicine 09/26/21 Juliette Tan MUNICIPAL FIREFIGHTER.MULTI MEDIA SPECIALIST [address] [facility] [place] [address] Customer Marketing Assistant Family Medicine 04/11/24 Matt Rao MD [address] [facility] [place] [address] Customer Marketing Assistant Family Medicine 04/11/24 Border Measurer Relationship Specialty Start Date End Date Светлана Srinivasan, MUNICIPAL FIREFIGHTER.MULTI MEDIA SPECIALIST [address] [place] [address] PCP - General Family Medicine 09/26/21 Matt Rao MD [address] [facility] [place] [address] Customer Marketing Assistant Family Medicine 04/11/24 Border Measurer Relationship Specialty Start Date End Date Светлана Srinivasan APRN.MULTI MEDIA SPECIALIST [address] [place] [address] PCP - General Family Medicine 09/26/21 Juliette Tan MUNICIPAL FIREFIGHTER.MULTI MEDIA SPECIALIST [address] [facility] [place] [address] Customer Marketing Assistant Family Medicine 04/11/24 Matt Rao MD [address] [facility] [place] [address] Customer Marketing Assistant Family Medicine 04/11/24 Border Measurer Relationship Specialty Start Date End Date Светлана Srinivasan, JOSE.MULTI MEDIA SPECIALIST [address] [place] [address] PCP - General Family Medicine 09/26/21 Juliette Tan MUNICIPAL FIREFIGHTER.MULTI MEDIA SPECIALIST [address] [place] [address] Customer Marketing Assistant Family Medicine 04/11/24 Matt Rao MD [address] [place] [address] [facility] 04/11/24 Border Measurer Relationship Specialty Start Date End Date Светлана Srinivasan APRN.MULTI MEDIA SPECIALIST [address] [place] [address] PCP - General Family Medicine 09/26/21 Juliette Tan MUNICIPAL FIREFIGHTER.MULTI MEDIA SPECIALIST [address] [place] [address] Customer Marketing Assistant Family Medicine 04/11/24 Matt Rao MD [address] [place] [address] Customer Marketing Assistant Family Medicine 04/11/24 Border Measurer Relationship Specialty Start Date End Date Светлана Srinivasan, MUNICIPAL FIREFIGHTER.MULTI MEDIA SPECIALIST [address] [place] [address] PCP - General Family Medicine 09/26/21 Juliette Tan MUNICIPAL FIREFIGHTER.MULTI MEDIA SPECIALIST [address] [place] [address] [facility] 04/11/24 Matt Rao MD [address] [facility] [place] [address] [facility] 04/11/24 Border Measurer Relationship Specialty Start Date End Date Светлана Srinivasan, MUNICIPAL FIREFIGHTER.MULTI MEDIA SPECIALIST [address] [place] [address] PCP - General Family Medicine 09/26/21 Juliette Tan MUNICIPAL FIREFIGHTER.MULTI MEDIA SPECIALIST [address] [facility] [place] [address] [facility] 04/11/24 Matt Rao MD [address] [facility] [place] [address] [facility] 04/11/24 Border Measurer Relationship Specialty Start Date End Date Светлана Srinivasan, MUNICIPAL FIREFIGHTER.MULTI MEDIA SPECIALIST [address] [place] [address] PCP - General Family Medicine 09/26/21 Juliette Tan MUNICIPAL FIREFIGHTER.MULTI MEDIA SPECIALIST [address] [facility] [place] [address] [facility] Medicine 04/11/24 Matt Rao MD [address] [facility] [place] [address] [facility] Medicine 04/11/24 Border Measurer Relationship Specialty Start Date End Date Светлана Srinivasan, MUNICIPAL FIREFIGHTER.MULTI MEDIA SPECIALIST [address] [place] [address] PCP - General Family Medicine 09/26/21 Juliette Tan MUNICIPAL FIREFIGHTER.MULTI MEDIA SPECIALIST [address] [place] [address] Customer Marketing Assistant Family Medicine 04/11/24 Matt Rao MD [address] [place] [address] Customer Marketing Assistant Family Medicine 04/11/24 Border Measurer Relationship Specialty Start Date End Date Светлана Srinivasan APRN.MULTI MEDIA SPECIALIST [address] [place] [address] PCP - General Family Medicine 09/26/21 Juliette Tan MUNICIPAL FIREFIGHTER.MULTI MEDIA SPECIALIST [address] [facility] [place] [address] Customer Marketing Assistant Family Medicine 04/11/24 Matt Rao MD [address] [facility] [place] [address] Customer Marketing Assistant Family Medicine 04/11/24 Border Measurer Relationship Specialty Start Date End Date Светлана Srinivasan APRN.MULTI MEDIA SPECIALIST [address] [place] [address] PCP - General Family Medicine 09/26/21 Juliette Tan MUNICIPAL FIREFIGHTER.MULTI MEDIA SPECIALIST [address] [facility] [place] [address] Customer Marketing Assistant Family Medicine 04/11/24 Matt Rao MD [address] [facility] [place] [address] Customer Marketing Assistant Family Medicine 04/11/24 Border Measurer Relationship Specialty Start Date End Date Светлана Srinivasan APRN.MULTI MEDIA SPECIALIST [address] [place] [address] PCP - General Family Medicine 09/26/21 Juliette Tan APRN.MULTI MEDIA SPECIALIST [address] [place] [address] Customer Marketing Assistant Family Medicine 04/11/24 Matt Rao MD [address] [place] [address] Customer Marketing Assistant Family Medicine 04/11/24 Border Measurer Relationship Specialty Start Date End Date Светлана Srinivasan APRN.MULTI MEDIA SPECIALIST [address] [facility] [place] [address] PCP - General Family Medicine 09/26/21 Juliette Tan MUNICIPAL FIREFIGHTER.MULTI MEDIA SPECIALIST [address] [facility] [place] [address] Customer Marketing Assistant Family Medicine 04/11/24 Matt Rao MD [address] [place] [address] Customer Marketing Assistant Family Medicine 04/11/24 Border Measurer Relationship Specialty Start Date End Date Светлана Srinivasan MUNICIPAL FIREFIGHTER.MULTI MEDIA SPECIALIST [address] [place] [address] PCP - General Family Medicine 09/26/21 Juliette Tan MUNICIPAL FIREFIGHTER.MULTI MEDIA SPECIALIST [address] [place] [address] Customer Marketing Assistant Family Medicine 04/11/24 Matt Rao MD [address] [facility] [place] [address] Customer Marketing Assistant Family Medicine 04/11/24 Border Measurer Relationship Specialty Start Date End Date Светлана Srinivasan APRN.MULTI MEDIA SPECIALIST [address] [place] [address] PCP - General Family Medicine 09/26/21 Juliette Tan MUNICIPAL FIREFIGHTER.MULTI MEDIA SPECIALIST [address] [place] [address] Customer Marketing Assistant Family Medicine 04/11/24 Matt Rao MD [address] [place] [address] Customer Marketing Assistant Family Medicine 04/11/24 Border Measurer Relationship Specialty Start Date End Date Светлана Srinivasan APRN.MULTI MEDIA SPECIALIST [address] [place] [address] PCP - General Family Medicine 09/26/21 Juliette Tan MUNICIPAL FIREFIGHTER.MULTI MEDIA SPECIALIST [address] [place] [address] Customer Marketing Assistant Family Medicine 04/11/24 Matt Rao MD [address] [place] [address] Customer Marketing Assistant Family Medicine 04/11/24 Border Measurer Relationship Specialty Start Date End Date Светлана Srinivasan, MUNICIPAL FIREFIGHTER.MULTI MEDIA SPECIALIST [address] [place] [address] PCP - General Family Medicine 09/26/21 Juliette Tan MUNICIPAL FIREFIGHTER.MULTI MEDIA SPECIALIST [address] [place] [address] Customer Marketing Assistant Family Medicine 04/11/24 Matt Rao MD [address] [place], [place] [address] Customer Marketing Assistant Family Medicine 04/11/24 Border Measurer Relationship Specialty Start Date End Date Светлана Srinivasan, MUNICIPAL FIREFIGHTER.MULTI MEDIA SPECIALIST [address] [place], [place] [address] [phone] PCP - General Family Medicine 09/26/21 Juliette Tan MUNICIPAL FIREFIGHTER.MULTI MEDIA SPECIALIST [address] [place], [place] 7[address] [phone] Customer Marketing Assistant Family Medicine 04/11/24 Matt Rao MD [address] [place], [place] [id number] [facility] 04/11/24 Border Measurer Relationship Specialty Start Date End Date Светлана Srinivasan, MUNICIPAL FIREFIGHTER.MULTI MEDIA SPECIALIST [address] [place] [address] PCP - General Family Medicine 09/26/21 Border Measurer Relationship Specialty Start Date End Date Светлана Srinivasan, MUNICIPAL FIREFIGHTER.MULTI MEDIA SPECIALIST [address] [place] [address] PCP - General Family Medicine 09/26/21 Border Measurer Relationship Specialty Start Date End Date Светлана Srinivasan, MUNICIPAL FIREFIGHTER.MULTI MEDIA SPECIALIST [address] [place], [place] [address] [phone] PCP - General Family Medicine 09/26/21 Border Measurer Relationship Specialty Start Date End Date Светлана Srinivasan, MUNICIPAL FIREFIGHTER.MULTI MEDIA SPECIALIST [address] [place], [place] [address] [phone] PCP - General Family Medicine 09/26/21 Border Measurer Relationship Specialty Start Date End Date Светлана Srinivasan, MUNICIPAL FIREFIGHTER.MULTI MEDIA SPECIALIST [address] [place] [address] PCP - General Family Medicine 09/26/21 Border Measurer Relationship Specialty Start Date End Date Светлана Srinivasan APRN.MULTI MEDIA SPECIALIST [address] [place] [address] PCP - General Family Medicine 09/26/21 Juliette Tan APRN.MULTI MEDIA SPECIALIST [address] [place] [address] Customer Marketing Assistant Family Medicine 04/11/24 07/26/24 Matt Rao MD [address] [place] [address] Customer Marketing Assistant Family Medicine 04/11/24 07/26/24 Border Measurer Relationship Specialty Start Date End Date Светлана Srinivasan APRN.MULTI MEDIA SPECIALIST [address] [place] [address] PCP - General Family Medicine 09/26/21 Border Measurer Relationship Specialty Start Date End Date Светлана Srinivasan APRN.MULTI MEDIA SPECIALIST [address] [place] [address] PCP - General Family Medicine 09/26/21 Border Measurer Relationship Specialty Start Date End Date Светлана Srinivasan APRN.MULTI MEDIA SPECIALIST [address] [place] [address] PCP - General Family Medicine 09/26/21 Juliette Tan MUNICIPAL FIREFIGHTER.MULTI MEDIA SPECIALIST [address] [place] [address] Customer Marketing Assistant Family Medicine 04/11/24 07/26/24 Matt Rao MD [address] [facility] [place] [address] Customer Marketing Assistant Family Medicine 04/11/24 07/26/24 Border Measurer Relationship Specialty Start Date End Date Светлана Srinivasan, MUNICIPAL FIREFIGHTER.MULTI MEDIA SPECIALIST [address] [place] [address] PCP - General Family Medicine 09/26/21 Border Measurer Relationship Specialty Start Date End Date Светлана Srinivasan, MUNICIPAL FIREFIGHTER.MULTI MEDIA SPECIALIST [address] [place] [address] PCP - General Family Medicine 09/26/21 Border Measurer Relationship Specialty Start Date End Date Светлана Srinivasan, MUNICIPAL FIREFIGHTER.MULTI MEDIA SPECIALIST [address] [place] [address] PCP - General Family Medicine 09/26/21 Border Measurer Relationship Specialty Start Date End Date Светлана Srinivasan, MUNICIPAL FIREFIGHTER.MULTI MEDIA SPECIALIST [address] [place] [address] PCP - General Family Medicine 09/26/21 Border Measurer Relationship Specialty Start Date End Date Светлана Srinivasan, MUNICIPAL FIREFIGHTER.MULTI MEDIA SPECIALIST [address] [place] [address] PCP - General Family Medicine 09/26/21 Border Measurer Relationship Specialty Start Date End Date Светлана Srinivasan, MUNICIPAL FIREFIGHTER.MULTI MEDIA SPECIALIST [address] [place] [address] PCP - General Family Medicine 09/26/21 Border Measurer Relationship Specialty Start Date End Date Светлана Srinivasan, MUNICIPAL FIREFIGHTER.MULTI MEDIA SPECIALIST [address] [facility], [place] [address] PCP - General Family Medicine 09/26/21 Border Measurer Relationship Specialty Start Date End Date Светлана Srinivasan, MUNICIPAL FIREFIGHTER.MULTI MEDIA SPECIALIST [address] [facility], [place] [address] PCP - General Family Medicine 09/26/21 Border Measurer Relationship Specialty Start Date End Date Светлана Srinivasan, MUNICIPAL FIREFIGHTER.MULTI MEDIA SPECIALIST [address] [facility], [place] [address] PCP - General Family Medicine 09/26/21 Border Measurer Relationship Specialty Start Date End Date Светлана Srinivasan, MUNICIPAL FIREFIGHTER.MULTI MEDIA SPECIALIST [address] [facility], [place] [address] PCP - General Family Medicine 09/26/21 FOR [...] BE BASED ON THE PRIMARY CLINICAL RECORDS. [facility] [employer] [facility]. provides no warranty or guarantee of the accuracy or completeness of information in this document.
[2024-12-09 07:31] LABS: ROM Internal Control Test YES-OK TO RESULT pt. (Internal QC); ROM Patient Test POSITIVE (Negative); Record Kit Lot#, ROM+ K3358
--- NOTE | 2024-12-09 07:35 | PCM.HP.OB ---
HPI - General HPI Narrative JUSTO PETTIT, is a 29 F who presents with spontaneous rupture of membranes last night around 2315. She denies any vaginal bleeding or contractions. Positive movements. Maternal Data Information TIO Calculator Estimated Delivery Date Method Current WG Current Estimate 12/16/24 Manual 39w 0d PFSH PFSH Medical History Seasonal allergies Home Medications ?Medication ?Instructions ?Recorded ?Last Taken ?Type fluoxetine 40 mg capsule 40 mg PO DAILY 01/08/19 Unknown History multivitamin with minerals 1 ea PO DAILY 01/08/19 Unknown History norgestimate 0.25 mg-ethinyl 1 tab PO DAILY 01/08/19 Unknown History estradiol 0.035 mg tablet cephalexin 500 mg capsule 500 mg PO Q6 #28 CAPSULES 05/10/24 Unknown Rx ondansetron 4 mg disintegrating 4 mg PO Q8H PRN PRN Nausea #20 tabs 05/10/24 Unknown Rx tablet promethazine 25 mg rectal 25 mg MS Q6H PRN PRN Nausea #6 supp 05/10/24 Unknown Rx suppository (Promethegan) ondansetron 4 mg disintegrating 4 mg PO Q6H PRN nausea and 06/18/24 Unknown Rx tablet vomiting #14 tabs Allergy/AdvReac Type Severity Reaction Status Date / Time No Known Allergies Allergy Verified 06/18/24 09:30 Family History no significant family his Surgical History History of appendectomy History of wisdom tooth extraction Social History household members: spouse Smoking Status: Never smoker NST FHR Rate Baby A Baseline: 140 Variability:: Moderate Accelerations:: 15 x 15 Decelerations:: None NST Reactive:: Yes FHR Category:: Category I Uterine Activity:: TOCO reading every 2-3 minutes ROS Eyes Eyes: Denies blurry vision, change in vision or spots in vision ENT HEENT: Denies dizziness or headache(s) Cardiovascular Cardiovascular: Denies abdominal pain, chest pain or dyspnea Respiratory/Chest Respiratory/Chest: Denies cough, dyspnea, shortness of breath at rest or shortness of breath with exertion Gastrointestinal Gastrointestinal: Denies abdominal pain, diarrhea or vomiting Genitourinary Genitourinary: Denies change in urinary stream, difficulty urinating or dysuria Musculoskeletal Musculoskeletal: Reports none Integumentary Integumentary: Denies rash Neurologic Neurologic: Denies dizziness, headache(s), memory loss or weakness Psychiatric Psychiatric: Reports none Vital Signs Vital Signs Vital Signs: 12/09/24 06:27 12/09/24 06:27 12/09/24 06:27 Temperature Temperature Source Temporal Pulse Rate 69 Respiratory Rate Blood Pressure 131/66 H BP Systolic 131 BP Diastolic 66 12/09/24 06:27 12/09/24 06:27 Temperature 97.6 F L Temperature Source Pulse Rate Respiratory Rate 16 Blood Pressure BP Systolic BP Diastolic Weight Weight: 217 lb Body Mass Index (BMI) 35.0 Physical Exam Const alert, oriented x3 and no apparent distress General Appearance: cooperative Orientation / Consciousness: awake Exam Limitations: no limitations HEENT normocephalic Head and Scalp: normal to inspection Eyes General Eye: normal appearance of both eyes Neck full ROM and no lymphadenopathy Lymph Lymphatic: no lymphadenopathy noted Chest inspection of chest normal Resp normal respiratory effort, normal air movement and clear to auscultation bilaterally Effort and Inspection: able to speak in complete sentences and symmetric chest movement Cardio regular rate and regular rhythm GI normal to inspection, nondistended, normoactive bowel sounds Manual OB Exam: presentation cephalic Back/Spine normal ROM Extremity full ROM and no calf tenderness Skin no rashes or lesions noted General Skin Exam: no breakdown Neuro oriented x3 and CN's II-XII intact bilaterally Psych mental status grossly normal and thought process normal Labs Labs Labs: Hct 40.0 % (37-47) Hgb 12.6 g/dl (12.0-15.0) Assessment & Plan (1) 39 weeks gestation of : (2) Spontaneous rupture of amniotic membranes: (3) Anxiety and depression: (4) Obesity affecting : (5) Rubella non-immune status, antepartum: PLAN: Plan ROM plus- POSITIVE Admit to labor and delivery Routine labs Rubella non immune GBS negative Start Pitocin at 2 mu/min and increase per policy Pain medications when indicated Dr. Link and Dr. Bentley notified of admission
[2024-12-09 08:36] LABS: Hematocrit 37.6 % (37-47); Hemoglobin 12.1 g/dL (12.0-15.0); Immature Granulocytes Count 0.060 X10^3/uL (0.0-0.0); Mean Corp Hgb Conc 32.2 g/dL (32-36); Mean Corpuscular Volume 86.4 fL (81-99); Mean Platelet Vol. 11.0 fl (6.2-12.0); NRBC Flagged by Analyzer 0 % (0-5); Platelet Count 251 K/mm3 (150-450); RBC Distribution Width CV 13.8 % (11.6-14.6); RBC Distribution Width SD 43.2 fl (35.1-43.9); Red Blood Count 4.35 M/mm3 (4.2-5.4); White Blood Count 8.2 K/mm3 (4.4-11.0)
[2024-12-09 09:14] LABS: Syphilis Antibodies Nonreactive (Nonreactive)
[2024-12-09] MEDS: 0.9% Saline Lock 10 ML Syringe IV ×2 (11:41→20:21)
[2024-12-09] MEDS: Lactated Ringers 1,000 ML 50 ML IV ×2 (15:29→22:39)
[2024-12-09] MEDS: Oxytocin 15 Units/NS 250ml 15 UNITS/250 ML IV.SOLN 2 UNITS IV (15:29)
--- NOTE | 2024-12-09 19:32 | PN.OBGYN_ITS ---
Subjective Subjective Forebag resent attempted to AROM. No fluid retuned. 5-6 cm/80%/-2 Objective Data Objective Data Vital Signs: Vital Signs Temp Pulse Resp BP Pulse Ox 97.6 F L 80 18 136/72 H 99 12/09/24 17:54 12/09/24 17:54 12/09/24 17:54 12/09/24 17:54 12/09/24 17:54 Weight: 98.43 kg Body Mass Index (BMI) 35.0 Lab / Micro Data 12/09/24 08:15 Labs: Laboratory Results - last 24 hr 12/09/24 06:50: Vag Amniotic Fld Detect POSITIVE H 12/09/24 08:15: WBC 8.2, RBC 4.35, Hgb 12.1, Hct 37.6, MCV 86.4, MCH 27.8, MCHC 32.2, RDW Std Deviation 43.2, RDW Coeff of Juliette 13.8, Plt Count 251, MPV 11.0, Immature Gran % (Auto) 0.700, Neut % (Auto) 70.0, Lymph % (Auto) 19.9, [place] % (Auto) 8.2, Eos % (Auto) 1.0, Baso % (Auto) 0.2, Absolute Neuts (auto) 5.7, Absolute Lymphs (auto) 1.63, Nucleated RBC % 0, Syphilis Total Ab Nonreactive, Blood Type A POSITIVE, Antibody Screen NEGATIVE NST FHR Rate Baby A Baseline: 135 Variability:: Moderate Accelerations:: 15 x 15 Decelerations:: None FHR Category:: Category I Uterine Activity:: q 2 Assessment & Plan (1) Spontaneous rupture of amniotic membranes: (2) 39 weeks gestation of : (3) Obesity affecting : PLAN: Plan Continue Pitocin per protocol Epidural prn
--- NOTE | 2024-12-09 22:12 | PCM.PN.OB ---
Subjective Subjective HR decel to 80s. Patient placed in hand and knees. 7 cm/90/-1. Pitocin at 2 MUs and discontinued. IVF started. Objective Data Objective Data Vital Signs: Vital Signs Temp Pulse Resp BP Pulse Ox 97.6 F L 69 16 132/68 H 100 12/09/24 21:24 12/09/24 21:23 12/09/24 21:24 12/09/24 21:23 12/09/24 21:23 Weight: 98.43 kg Body Mass Index (BMI) 35.0 Lab / Micro Data 12/09/24 08:15 Labs: Laboratory Results - last 24 hr 12/09/24 06:50: Vag Amniotic Fld Detect POSITIVE H 12/09/24 08:15: WBC 8.2, RBC 4.35, Hgb 12.1, Hct 37.6, MCV 86.4, MCH 27.8, MCHC 32.2, RDW Std Deviation 43.2, RDW Coeff of Juliette 13.8, Plt Count 251, MPV 11.0, Immature Gran % (Auto) 0.700, Neut % (Auto) 70.0, Lymph % (Auto) 19.9, [place] % (Auto) 8.2, Eos % (Auto) 1.0, Baso % (Auto) 0.2, Absolute Neuts (auto) 5.7, Absolute Lymphs (auto) 1.63, Nucleated RBC % 0, Syphilis Total Ab Nonreactive, Blood Type A POSITIVE, Antibody Screen NEGATIVE Assessment & Plan (1) 39 weeks gestation of : (2) Spontaneous rupture of amniotic membranes: PLAN: Plan expectant management. Pitocin off
[2024-12-10] VITALS (85 sets, daily range): BP systolic 97–174; BP diastolic 51–97; PULSE 59–123; RESP 14–25; TEMP 36.6–38.3; O2SAT 87–100
[2024-12-10] MEDS: 0.9% Saline Lock 10 ML Syringe IV ×3 (01:30→20:30)
--- NOTE | 2024-12-10 05:51 | PN.OBGYN_ITS ---
Subjective Subjective Pitocin restarted after contractions spaced out and no cervical change. Some cervical swelling. Patient encouraged to get an epidural help relax and give Benadryl for cervical swelling. Objective Data Objective Data Vital Signs: Vital Signs Temp Pulse Resp BP Pulse Ox 98.5 F 108 H 16 130/72 H 99 12/10/24 04:13 12/10/24 04:57 12/10/24 04:13 12/10/24 04:13 12/10/24 04:57 Weight: 98.43 kg Body Mass Index (BMI) 35.0 Intake & Output: Intake and Output for Last 24 Hours 12/08/24 12/09/24 12/10/24 23:59 23:59 23:59 Intake Total 940.96 / 940.96 349.97 / 349.97 Balance 940.96 / 940.96 349.97 / 349.97 Lab / Micro Data 12/09/24 08:15 Labs: Laboratory Results - last 24 hr 12/09/24 06:50: Vag Amniotic Fld Detect POSITIVE H 12/09/24 08:15: WBC 8.2, RBC 4.35, Hgb 12.1, Hct 37.6, MCV 86.4, MCH 27.8, MCHC 32.2, RDW Std Deviation 43.2, RDW Coeff of Juliette 13.8, Plt Count 251, MPV 11.0, Immature Gran % (Auto) 0.700, Neut % (Auto) 70.0, Lymph % (Auto) 19.9, [place] % (Auto) 8.2, Eos % (Auto) 1.0, Baso % (Auto) 0.2, Absolute Neuts (auto) 5.7, Absolute Lymphs (auto) 1.63, Nucleated RBC % 0, Syphilis Total Ab Nonreactive, Blood Type A POSITIVE, Antibody Screen NEGATIVE NST FHR Rate Baby A Baseline: 145 Variability:: Moderate Accelerations:: 15 x 15 Decelerations:: None FHR Category:: Category I Assessment & Plan (1) Spontaneous rupture of amniotic membranes: (2) 39 weeks gestation of :
[2024-12-10] MEDS: Lactated Ringers 1,000 ML 999 ML IV (06:00)
[2024-12-10] MEDS: fentaNYL-bupivacaine (epidural) 100 ML BAG EPIDURAL ×2 (06:40→11:05)
--- NOTE | 2024-12-10 09:04 | PCM.PN.OB ---
Subjective Subjective Resting in bed with epidural. Objective Data Objective Data Vital Signs: Vital Signs Temp Pulse Resp BP Pulse Ox 98.0 F 87 18 108/55 L 97 12/10/24 08:45 12/10/24 08:45 12/10/24 08:45 12/10/24 08:45 12/10/24 08:45 Weight: 217 lb Body Mass Index (BMI) 35.0 Intake & Output: Intake and Output for Last 24 Hours 12/08/24 12/09/24 12/10/24 23:59 23:59 23:59 Intake Total 940.96 / 940.96 1816.17 / 1816.17 Balance 940.96 / 940.96 1816.17 / 1816.17 Lab / Micro Data 12/09/24 08:15 Labs: Laboratory Results - last 24 hr 12/09/24 08:15: Syphilis Total Ab Nonreactive, Blood Type A POSITIVE, Antibody Screen NEGATIVE Physical Exam Manual OB Exam: estimated gestational size appropriate, presentation cephalic, dilated 3cm, effaced 50%, station -1 and other AROM, clear fluid NST FHR Rate Baby A Baseline: 145 Variability:: Moderate Accelerations:: 15 x 15 Decelerations:: Variable FHR Category:: Category II Uterine Activity:: Every 2-3 minutes Assessment & Plan (1) 39 weeks gestation of : (2) Encounter for induction of labor: PLAN: Plan 1) Epidural for pain management 2) Category 2 FHT 3) Continue pitocin per policy 4) collaborative physician, notified of patient status
[2024-12-10] MEDS: Lactated Ringers 1,000 ML 200 ML IV (10:30)
--- NOTE | 2024-12-10 11:56 | PCM.PN.BLA ---
Progress Note At bedside to check on patient after 1.5 hours of pushing. She is comfortable with epidural and offers no complaints. Assessment & Plan Assessment/Plan (1) 39 weeks gestation of : (2) Spontaneous rupture of amniotic membranes: PLAN: Patient comfortable with epidural and pushing for 1.5 hours. head feels asynclitic with caput present. skull at 0 station and +1 with pushing. FHT 170/min to mod roxane/no accels/variable and late decelerations. Discussed with patient given intolerance to labor and the patient is felt to be remote from delivery, recommend section. Discussed r/b/a section and questions answered. Unable to perform a VAVD given station. Shared decision making was used. The patient desires to proceed with a section. The patient was discussed and reviewed with Dr. Link who is present on L&D as this provider has a scheduled OR case.
[2024-12-10] MEDS: fentaNYL 100 MCG/2 ML Ampul EPIDURAL (12:09)
[2024-12-10] MEDS: Cefazolin 1 GM/5 ML Vial 2 GM IV (12:17)
[2024-12-10] MEDS: Azithromycin 500 MG Vial (SNAP) IV (12:20)
[2024-12-10] MEDS: Lidocaine 2% (5ml sdv) 5 ML VIAL.MPF 20 ML EPIDURAL (12:21)
[2024-12-10] MEDS: TRANEXAMIC ACID 1,000 MG/10 ML ML 1000 MG IV (12:26)
--- NOTE | 2024-12-10 13:03 | EX.PCM.OBRPT ---
Maternal Data Information TIO Calculator Estimated Delivery Date Method Current WG Current Estimate 12/16/24 Manual 39w 1d Operative Report (OB) Details Procedure Type: low transverse Date of Procedure: 12/10/24 Procedure Start Time: 12:24 Time of Delivery: 12:29 Pre-Operative Diagnosis: Nonreassuring Status (cat 2-3 (at times) tracing ) Post-Operative Diagnosis: Same as Pre-operative diagnosis Classification: PAIGE Type of Anesthesia: Epidural Antibiotic Given: Ancef 2 grams IV x1 and Zithromax 500 mg/5 mL X1 Drain: Bah to straight drain Estimated Blood Loss: 900 Fluids Replaced: 400 Findings Description of surgery: After informed consent was obtained the patient was taken the operating She was then placed in the supine position. She was prepped and draped in the normal sterile fashion. Epidural Anesthesia was found to be adequate. At this time a Pfannenstiel skin incision was made with a knife was carried down to the underlying layer of the fascia. The fascial incision was then extended laterally using parker scissor. Attention was then turned to the superior aspect of the fascial edge was grasped with 2 straight [place] clamps tented up and the rectus muscle dissected off sharply Rectus muscles were then in the midline bluntly and peritoneum was entered bluntly. Gentle opposing traction was placed. At this time the vesicouterine peritoneum was identified. Scalpel was used to make a uterine incision in a low transverse fashion. The uterus was then entered bluntly gentle opposing traction was placed to extend this incision. thick meconium fluid noted. Very narrow pelvis- minimal room to place hand to elevate head- hand from below to push up on head was asked at this time- once head elevated the head remained asynclitc and extended- at this time decision to rotate to breech for delivery. Dr. Collins had entered room to assist with delivery if needed- scrubbed in to help deliver. Delivery of buttocks and legs followed by arms and with finger infants mouth i was able to flex head and deliver without complication. immediate cord clamping performed. Cord was clamped and cut infant was handed to the waiting nursery team. The Placenta was removed from the uterus. The uterus was then removed from the abdominal cavity. The uterus was cleared of all clots and debris using a lap. At this time the uterine incision was reapproximated using #1 Vicryl in a running locked fashion. small extension down left side. 1-0 and 2-0 vicryl figure of eight used to repair extension and hemoblast placed and pressure held- Hemostasis was appreciated. Posterior cul-de-sac was then cleared of all clots and debris. Uterus was placed back in the abdominal cavity. Gutters were cleared of all clots and debris. Uterine incision was reevaluated and noted to be of good hemostasis. Hemoblast placed over uterine incision. At this time the peritoneum was grasped with Kellys reapproximated using #2 Vicryl suture in a running fashion. Fascia was then reapproximated using #1 Vicryl in a running fashion. Subcu layer was irrigated with NS, reapproximated with #2 0 plain gut suture in an interrupted fashion. Subcu layer was closed using 4-0 Monocryl/Viryl in a subcu fashion. Dry sterile dressing was applied. Instrument lap needle count correct ?2. Anticipated normal postoperative course. Surgical findings: asynclitic head, caput, meconinum with delivery. delivered breech from vertex Presentation: Angel Breech (after rotating from vertex to breech for delivery) Amniotic Membrane Rupture Type: Spontaneous Amniotic Fluid Description: Thick meconium Placental Delivery Description: Expressed Placenta Disposition: [facility] Specimen collected: No Cord Vessel Description: 3 Vessels Cord Entanglement: None A gender: Male (1 minute): 5 (5 minute): 9 Delayed Cord Clamping: No Bottle Blower sand mill operator: Yes Through Operator: Carley Segura Tasks completed by operator/assistant foreman: Opening & closing, Dissecting tissue and Retracting Additional operations and intelligence assistant?: Yes Additional Line Runner #2: Teresa Collins Tasks completed by operations and intelligence assistant #2: Other (delivery of infant and closure of uterus ) Complications Complications: No
--- NOTE | 2024-12-10 13:03 | EX.PCM.OBRPT ---
Maternal Data Information TIO Calculator Estimated Delivery Date Method Current WG Current Estimate 12/16/24 Manual 39w 1d Operative Report (OB) Details Procedure Type: low transverse Date of Procedure: 12/10/24 Procedure Start Time: 12:24 Time of Delivery: 12:29 Pre-Operative Diagnosis: Nonreassuring Status (cat 2-3 (at times) tracing ) Post-Operative Diagnosis: Same as Pre-operative diagnosis Classification: PAIGE Type of Anesthesia: Epidural Antibiotic Given: Ancef 2 grams IV x1 and Zithromax 500 mg/5 mL X1 Drain: Bah to straight drain Estimated Blood Loss: 900 Fluids Replaced: 400 Findings Description of surgery: After informed consent was obtained the patient was taken the operating She was then placed in the supine position. She was prepped and draped in the normal sterile fashion. Epidural Anesthesia was found to be adequate. At this time a Pfannenstiel skin incision was made with a knife was carried down to the underlying layer of the fascia. The fascial incision was then extended laterally using parker scissor. Attention was then turned to the superior aspect of the fascial edge was grasped with 2 straight Dexter clamps tented up and the rectus muscle dissected off sharply Rectus muscles were then in the midline bluntly and peritoneum was entered bluntly. Gentle opposing traction was placed. At this time the vesicouterine peritoneum was identified. Scalpel was used to make a uterine incision in a low transverse fashion. The uterus was then entered bluntly gentle opposing traction was placed to extend this incision. thick meconium fluid noted. Very narrow pelvis- minimal room to place hand to elevate head- hand from below to push up on head was asked at this time- once head elevated the head remained asynclitc and extended- at this time decision to rotate to breech for delivery. Dr. Collins had entered room to assist with delivery if needed- scrubbed in to help deliver. Delivery of buttocks and legs followed by arms and with finger infants mouth i was able to flex head and deliver without complication. immediate cord clamping performed. Cord was clamped and cut infant was handed to the waiting nursery team. The Placenta was removed from the uterus. The uterus was then removed from the abdominal cavity. The uterus was cleared of all clots and debris using a lap. At this time the uterine incision was reapproximated using #1 Vicryl in a running locked fashion. small extension down left side. 1-0 and 2-0 vicryl figure of eight used to repair extension and hemoblast placed and pressure held- Hemostasis was appreciated. Posterior cul-de-sac was then cleared of all clots and debris. Uterus was placed back in the abdominal cavity. Gutters were cleared of all clots and debris. Uterine incision was reevaluated and noted to be of good hemostasis. Hemoblast placed over uterine incision. At this time the peritoneum was grasped with Kellys reapproximated using #2 Vicryl suture in a running fashion. Fascia was then reapproximated using #1 Vicryl in a running fashion. Subcu layer was irrigated with NS, reapproximated with #2 0 plain gut suture in an interrupted fashion. Subcu layer was closed using 4-0 Monocryl/Viryl in a subcu fashion. Dry sterile dressing was applied. Instrument lap needle count correct ?2. Anticipated normal postoperative course. Surgical findings: asynclitic head, caput, meconinum with delivery. delivered breech from vertex Presentation: Angel Breech (after rotating from vertex to breech for delivery) Amniotic Membrane Rupture Type: Spontaneous Amniotic Fluid Description: Thick meconium Placental Delivery Description: Expressed Placenta Disposition: [facility] Specimen collected: No Cord Vessel Description: 3 Vessels Cord Entanglement: None A gender: Male (1 minute): 5 (5 minute): 9 Delayed Cord Clamping: No Barbering Instructor lean manufacturing engineer: Yes Cross Country Truck Driver: Carley Segura Tasks completed by wet process assistant head miller: Opening & closing, Dissecting tissue and Retracting Additional front office medical assistant?: Yes Additional Recreation Program Specialist #2: Teresa Collins Tasks completed by front office medical assistant #2: Other (delivery of infant and closure of uterus ) Complications Complications: No
[2024-12-10] MEDS: Oxytocin 15 Units/NS 250ml 15 UNITS/250 ML IV.SOLN 83 UNITS IV (14:11)
[2024-12-10] MEDS: Ketorolac 30 MG/ML Syringe IV ×2 (14:22→20:30)
--- NOTE | 2024-12-10 16:47 | NURSING ---
Dr. Collins notified of temperal temperatures of 100.4, 100.4, and then 101 at the end of recovery. ordered gentamycin 5 mg/kg x1 and clindamycin 900mg IV Q8 hours and CBC with differential. Call doctor if any other symptoms of infection. PIA Adan notified to start as ordered.
[2024-12-10] MEDS: Clindamycin 900 MG/50 ML BAG 75 MG IV (17:04)
[2024-12-10] MEDS: Lactated Ringers 500 ML IV.SOLN. IV (17:04)
[2024-12-10] MEDS: Gentamicin IV 300 MG in Dextrose 5%-Water (50mL Bag) 50 ML 100 MG IV (18:01)
[2024-12-10 19:02] LABS: Hematocrit 32.3 % (37-47); Hemoglobin 10.7 g/dL (12.0-15.0); Immature Granulocytes Count 0.130 X10^3/uL (0.0-0.0); Mean Corp Hgb Conc 33.1 g/dL (32-36); Mean Corpuscular Volume 85.7 fL (81-99); Mean Platelet Vol. 10.9 fl (6.2-12.0); NRBC Flagged by Analyzer 0 % (0-5); POSITIVE MORPHOLOGY YES; Platelet Count 205 K/mm3 (150-450); RBC Distribution Width CV 13.9 % (11.6-14.6); RBC Distribution Width SD 43.0 fl (35.1-43.9); Red Blood Count 3.77 M/mm3 (4.2-5.4); White Blood Count 19.9 K/mm3 (4.4-11.0)
[2024-12-11] VITALS (8 sets, daily range): BP systolic 119–132; BP diastolic 64–84; PULSE 79–108; RESP 14–18; TEMP 36.1–36.8; O2SAT 95–98
[2024-12-11] MEDS: 0.9% Saline Lock 10 ML Syringe IV ×4 (01:07→09:03)
[2024-12-11] MEDS: Clindamycin 900 MG/50 ML BAG 75 MG IV ×2 (01:08→08:22)
[2024-12-11] MEDS: Ketorolac 30 MG/ML Syringe IV ×2 (02:29→08:22)
[2024-12-11 06:10] LABS: Hematocrit 30.7 % (37-47); Hemoglobin 10.0 g/dL (12.0-15.0); Mean Corp Hgb Conc 32.6 g/dL (32-36); Mean Corpuscular Volume 86.5 fL (81-99); Mean Platelet Vol. 10.7 fl (6.2-12.0); Platelet Count 182 K/mm3 (150-450); RBC Distribution Width CV 14.2 % (11.6-14.6); RBC Distribution Width SD 44.7 fl (35.1-43.9); Red Blood Count 3.55 M/mm3 (4.2-5.4); White Blood Count 15.9 K/mm3 (4.4-11.0)
[2024-12-11] MEDS: Senna/Docusate Sodium 1 Tablet PO (10:39)
--- NOTE | 2024-12-11 15:13 | PN.OBGYN_ITS ---
Subjective Subjective pt doing well. Pain controlled. Ambulating and voiding without difficulty. Tolerating a diet without nausea or vomiting. She denies lightheadedness, dizziness, fevers, chills, malaise, chest pain, shortness of breath, leg pain. Lochia is normal. Objective Data Objective Data Vital Signs: Vital Signs Temp Pulse Resp BP Pulse Ox O2 Del Method 97.0 F L 108 H 18 123/82 H 96 Room Air 12/11/24 11:45 12/11/24 11:45 12/11/24 11:45 12/11/24 11:45 12/11/24 11:45 12/11/24 11:45 Oxygen Delivery Method Room Air Weight: 217 lb Body Mass Index (BMI) 35.0 Intake & Output: Intake and Output for Last 24 Hours 12/09/24 12/10/24 12/11/24 23:59 23:59 23:59 Intake Total 940.96 / 940.96 3370.57 / 3370.57 100 / 100 Output Total 1400 / 1400 450 / 450 Balance 940.96 / 940.96 1970.57 / 1970.57 -350 / -350 Lab / Micro Data 12/11/24 06:00 Labs: Laboratory Results - last 24 hr 12/10/24 18:30: WBC 19.9 H, RBC 3.77 L, Hgb 10.7 L, Hct 32.3 L, MCV 85.7, MCH 28.4, MCHC 33.1, RDW Std Deviation 43.0, RDW Coeff of Juliette 13.9, Plt Count 205, MPV 10.9, Immature Gran % (Auto) 0.700, Neut % (Auto) 89.3 H, Lymph % (Auto) 5.2 L, [place] % (Auto) 4.6, Eos % (Auto) 0.0, Baso % (Auto) 0.2, Absolute Neuts (auto) 17.8 H, Absolute Lymphs (auto) 1.04, Nucleated RBC % 0 12/11/24 06:00: WBC 15.9 H, RBC 3.55 L, Hgb 10.0 L, Hct 30.7 L, MCV 86.5, MCH 28.2, MCHC 32.6, RDW Std Deviation 44.7 H, RDW Coeff of Juliette 14.2, Plt Count 182, MPV 10.7 Physical Exam Const alert and no apparent distress General Appearance: comfortable HEENT normocephalic Resp normal respiratory effort GI soft to palpation, non-tender and non-distended GI Narrative: dressing c/d/i Extremity no calf tenderness Assessment & Plan (1) Delivery by section: PLAN: POD#1 s/p section. Doing well. Routine post op care. Anticipate discharge tomorrow (2) fever: PLAN: D/c antibiotics. Remains afebrile
[2024-12-12 01:31] VITALS: BP 129/81; PULSE 74; RESP 14; TEMP 36.4; O2SAT 97
--- NOTE | 2024-12-12 01:37 | DS.PCM_ITS ---
Providers Date of Admission: 12/10/24 Primary Care Physician: RENEA Mccann Reason For Visit: REPEAT C SECTION Diagnosis Discharge Diagnosis (1) Delivery by section: Status: Acute (2) fever: Status: Acute Code(s): O86.4 - Pyrexia of unknown origin following delivery (3) Postoperative pain: Status: Acute Code(s): G89.18 - Other acute postprocedural pain Plan 1) Epidural for pain management 2) Category 2 FHT 3) Continue pitocin per policy 4) [facility], notified of patient status Medications at Discharge Home Medications fluoxetine 40 mg capsule 40 mg PO DAILY antidepressant 01/08/19 multivitamin with minerals 1 ea PO DAILY 01/08/19 docusate sodium 100 mg capsule (Colace) 100 mg PO DAILY constipation 12/09/24 valacyclovir 500 mg tablet (Valtrex) 400 mg PO Q8H orral HSV 12/09/24 acetaminophen 500 mg tablet 1,000 mg (2 x 500 mg) PO Q6H #0 tabs 12/12/24 ibuprofen 600 mg tablet 600 mg PO Q6H #0 tabs 12/12/24 oxycodone 5 mg tablet 5 mg PO Q6H 7 days #7 tabs 12/12/24 oxycodone-acetaminophen 5 mg-325 mg tablet 1 tab PO Q6H 7 days #28 tabs 12/12/24 Hospital Course Summary of Care Provided Minutes Spent on Discharge: 15 Hospital Course: Presented for induction of labor on 12/09, LTCS for intolerance of labor Category 2 tracing on 12/10. fever with antibiotics. Discharge home on postoperative day #2 Weight / BMI Weight Weight: 217 lb Body Mass Index (BMI) 35.0 ABG / Lab / Microbiology Data 12/11/24 06:00 Laboratory: Laboratory Results - last 24 hr 12/11/24 06:00: WBC 15.9 H, RBC 3.55 L, Hgb 10.0 L, Hct 30.7 L, MCV 86.5, MCH 28.2, MCHC 32.6, RDW Std Deviation 44.7 H, RDW Coeff of Juliette 14.2, Plt Count 182, MPV 10.7 D/C Instructions May resume sexual activity in: 6 weeks Weight Bearing Status: Full weight bearing Lifting Restricted to (Lbs): 20 Call your doctor if your incision/area has: Continuous Slow Oozing, Sudden Increased Bleeding, Increased Pain/ Swelling, Increased Redness, Foul Smelling Discharge and Swelling at the incision site Call your doctor if you observe: Fever of 101 or Higher, Inability to urinate, Inability to have a bowel movement, Using more than 1 pad per hour, Shortness of breath, Dizziness, Fainting spells, Chest pain, Increased palpitations (irregular heartbeat), Calf discomfort and Uncontrolled pain Suture Line Care: Avoid Pulling/Pushing Remove Dressing in: 1 week Cleanse incision/area with: Keep Dressing Clean & Dry DC O2, CPAP, BIPAP Needs Home O2 Discharge instructions: No Meaningful Use Info Meaningful Use Meaningful Use Diagnoses (Choose all that apply): None applicable Discharge Plan Admission Admit Date/Time: 12/10/24 11:41 Primary Reason for Your Visit: Section Attending Provider: Esther Acosta Primary Care Provider: Светлана Srinivasan NP Consulting Providers: Nayeli Bowman Instructions Additional Instructions / Restrictions: May take Motrin at 2pm Tylenol may take at 6pm Friday at 1030 Discharge Orders/Prescriptions Prescriptions: New oxycodone 5 mg Tablet 5 mg PO Q6H 7 Days Qty: 7 0RF acetaminophen 500 mg Tablet 1,000 mg PO Q6H Qty: 0 0RF ibuprofen 600 mg Tablet 600 mg PO Q6H Qty: 0 0RF oxycodone-acetaminophen 1 TABLET tablet 1 tab PO Q6H 7 Days Qty: 28 0RF Continued fluoxetine 40 MG capsule 40 mg PO DAILY Patient Comments: TAKE 1 CAPSULE BY MOUTH EVERY DAY multivitamin with minerals 1 EACH tablet 1 ea PO DAILY valacyclovir [Valtrex] 500 mg tablet 400 mg PO Q8H docusate sodium [Colace] 100 mg capsule 100 mg PO DAILY Discontinued thiamine HCl (vitamin B1) [Vitamin B-1] 50 mg tablet 25 mg PO DAILY Unisom (doxylamine) 25 mg tablet 25 mg PO QHS PRN (Reason: depression ) ondansetron 4 mg tablet,disintegrating 4 mg PO Q8H PRN PRN (Reason: Nausea) Qty: 20 0RF promethazine [Promethegan] 25 mg suppository 25 mg VA Q6H PRN PRN (Reason: Nausea) Qty: 6 0RF ondansetron 4 mg tablet,disintegrating 4 mg PO Q6H PRN (Reason: nausea and vomiting) Qty: 14 0RF Referrals / Follow Up: Светлана Srinivasan NP, TRACK VEHICLE REPAIRER-C [Primary Care Provider] - Esther Acosta MD [Med Staff - Active Staff] - Teresa Collins DO [Med Staff - Active Staff] - (Follow up in 1 week for incision check and 6 wk visit) Disposition Disposition (needs filled in before D/C Order can be placed): Home, Self Care
[2024-12-12 07:48] VITALS: BP 124/77; PULSE 67; RESP 16; TEMP 36.1; O2SAT 98
[2024-12-12] MEDS: Senna/Docusate Sodium 1 Tablet PO ×2 (08:17→08:56)
--- NOTE | 2024-12-12 10:49 | CASEMGMT ---
Social Work Assessment Labor and Delivery Unit Patient Address: [address] [place] [address] Phone number: [phone] Date of Referral: 12/11/2024 Time of Referral: 13:05 Referred By: Denisa Rose Date of Intervention: 12/12/2024 Time of Intervention: 10:49 Reason for Referral: History of anxiety and depression History obtained from:?? Mother of baby (MOB), father of baby (FOB) and review of medical records. Household composition: ALLAN MUNOZ (Meek, age 30) and their son Karri, born on 12/10/24. Patient's parent/guardian status: ?MOB and FOB have been together for 10 years and have been for 8 years. ??MOB denied any previous or current issues of domestic violence and described a positive relationship with the FOB. MOB and FOB both denied having any other children. Medical History: :1, Para, now 1. MOB received care beginning at 8 weeks and 6 days. Visits were observed to be routine. Apgars: 5 and 9. ?Weight: 6 pounds, 13 ounces. Reel Cart Operator: Dr. Richardson. Educational Status: MOB and FOB denied any issues with reading, writing or learning comprehension. MOB and FOB have both earned their Associate?s degrees. Financial Status: MOB and FOB reported that their income is sufficient to meet the needs of their family at this time. Both MOB and FOB are working full-time. Infant Supplies: MOB and FOB reported they have the supplies they need for baby at this time including but not limited to: Car seat, bassinet, crib, pack-n-play, diapers, bottles, 2 breast pumps and clothing. Childcare/Caregiver(s): MOB is taking 12 weeks of maternity leave. FOB is able to take off of work for 1 day tomorrow however overall described his job as very flexible. The FOB works in the area of farming.? MOB reported that she and the FOB will share childcare responsibilities when they are at home. The MOB is working on trying to get a 4-10 day work schedule and will also be in daycare. Transportation: Both MOB and FOB are licensed drivers and have a reliable vehicle to get baby to and from all medical appointments. MOB and FOB denied any issues/barriers to transportation at this time. Programs/Agencies Involved: ALEXANDER is currently involved in counseling through [facility] and also has a psychiatrist who oversees her medications. Children Services/Legal Issues: MOB and FOB denied any previous or current Children Services and/or ?legal involvement. ?Mental Health History: ?MOB has a history of anxiety and depression and was on medication prior to getting . MOB went off of her medications once she became and has plans to stay off of the medications unless needed.? Patient stated she has a plan to go back on them if needed in the future. MOB reported she already has scheduled appointments with her providers. ?For now, MOB stated her symptoms are being effectively managed. ?Line Assembler [employer] administered the [place] Depression Scale (EPDS). MOB?s score was a 5.? [employer] provided education on the score and what to look out for which the MOB expressed understanding of. Substance Use History:?? MOB and FOB denied any previous current drug or alcohol abuse. ? Family History:?? MOB stated anxiety and bi-polar run on her side of the family. FOB denied any family history of mental health issues and both MOB and FOB denied any family history of drug or alcohol abuse. Drug Screens: None obtained during this admission. Family/Social Stressors:?? Denied. Support Systems:? MOB identified her biggest support as the FOB?s mom, dad, aunt and uncle, all of whom live close-by and the MOB?s younger sister, and aunts and cousins on her dad?s side of the family. MOB reported she has an estranged relationship with her immediate family for now. MOB and FOB also described a strong support from their muslim family as well as from the FOB?s employer. Depression/Shaken Baby/Safe Sleeping: Line [employer] provided verbal and written education on PPD, increased risk factors for PPD, Safe Sleeping and Shaken Baby.? MOB and FOB both verbalized an understanding.??? ASSESSMENT: MOB and FOB provided consent to social work visit. Upon arrival, the MOB was beginning to pack/prepare for discharge today and the FOB was sitting nearby in a chair holding . Both MOB and FOB were very cooperative and engaged.? Line Assembler [employer] observed positive interaction between the MOB and FOB as well as towards the FOB and .? FOB was very gentle and attentive with the and was hands-on with care. At the end of the assessment, Line Assembler [employer] requested to speak with the MOB alone, which she and the FOB were both agreeable to. MOB reported feeling safe in her home and denied any previous or current domestic violence, unmanaged mental health issues either with herself or with the FOB, and also denied any concerns with any drug or alcohol abuse with either herself or the FOB. Safe Plan of Care for related to substance use: N/A PLAN: For MOB and baby to be discharged when medically ready. No other services requested or indicated. Denisa Rushing, COSTING MANAGER, PLAYERS CLUB REPRESENTATIVE
--- NOTE | 2024-12-12 10:49 | CASEMGMT ---
Social Work Assessment Labor and Delivery Unit Patient Address: [address] [place] [address] Phone number: [phone] Date of Referral: 12/11/2024 Time of Referral: 13:05 Referred By: Denisa Rose Date of Intervention: 12/12/2024 Time of Intervention: 10:49 Reason for Referral: History of anxiety and depression History obtained from:?? Mother of baby (MOB), father of baby (FOB) and review of medical records. Household composition: ALLAN MUNOZ (Meek, age 30) and their son Karri, born on 12/10/24. Patient's parent/guardian status: ?MOB and FOB have been together for 10 years and have been for 8 years. ??MOB denied any previous or current issues of domestic violence and described a positive relationship with the FOB. MOB and FOB both denied having any other children. Medical History: :1, Para, now 1. MOB received care beginning at 8 weeks and 6 days. Visits were observed to be routine. Apgars: 5 and 9. ?Weight: 6 pounds, 13 ounces. Photocopying Equipment Mechanic: Dr. Richardson. Educational Status: MOB and FOB denied any issues with reading, writing or learning comprehension. MOB and FOB have both earned their Associate?s degrees. Financial Status: MOB and FOB reported that their income is sufficient to meet the needs of their family at this time. Both MOB and FOB are working full-time. Infant Supplies: MOB and FOB reported they have the supplies they need for baby at this time including but not limited to: Car seat, bassinet, crib, pack-n-play, diapers, bottles, 2 breast pumps and clothing. Childcare/Caregiver(s): MOB is taking 12 weeks of maternity leave. FOB is able to take off of work for 1 day tomorrow however overall described his job as very flexible. The FOB works in the area of farming.? MOB reported that she and the FOB will share childcare responsibilities when they are at home. The MOB is working on trying to get a 4-10 day work schedule and will also be in daycare. Transportation: Both MOB and FOB are licensed drivers and have a reliable vehicle to get baby to and from all medical appointments. MOB and FOB denied any issues/barriers to transportation at this time. Programs/Agencies Involved: ALEXANDER is currently involved in counseling through [facility] and also has a psychiatrist who oversees her medications. Children Services/Legal Issues: MOB and FOB denied any previous or current Children Services and/or ?legal involvement. ?Mental Health History: ?MOB has a history of anxiety and depression and was on medication prior to getting . MOB went off of her medications once she became and has plans to stay off of the medications unless needed.? Patient stated she has a plan to go back on them if needed in the future. MOB reported she already has scheduled appointments with her providers. ?For now, MOB stated her symptoms are being effectively managed. ?Stamp Pad Finisher administered the [place] Depression Scale (EPDS). MOB?s score was a 5.? Stamp Pad Finisher provided education on the score and what to look out for which the MOB expressed understanding of. Substance Use History:?? MOB and FOB denied any previous current drug or alcohol abuse. ? Family History:?? MOB stated anxiety and bi-polar run on her side of the family. FOB denied any family history of mental health issues and both MOB and FOB denied any family history of drug or alcohol abuse. Drug Screens: None obtained during this admission. Family/Social Stressors:?? Denied. Support Systems:? MOB identified her biggest support as the FOB?s mom, dad, aunt and uncle, all of whom live close-by and the MOB?s younger sister, and aunts and cousins on her dad?s side of the family. MOB reported she has an estranged relationship with her immediate family for now. MOB and FOB also described a strong support from their sikhism family as well as from the FOB?s employer. Depression/Shaken Baby/Safe Sleeping: Stamp Pad Finisher provided verbal and written education on PPD, increased risk factors for PPD, Safe Sleeping and Shaken Baby.? MOB and FOB both verbalized an understanding.??? ASSESSMENT: MOB and FOB provided consent to social work visit. Upon arrival, the MOB was beginning to pack/prepare for discharge today and the FOB was sitting nearby in a chair holding . Both MOB and FOB were very cooperative and engaged.? Stamp Pad Finisher observed positive interaction between the MOB and FOB as well as towards the FOB and .? FOB was very gentle and attentive with the and was hands-on with care. At the end of the assessment, Stamp Pad Finisher requested to speak with the MOB alone, which she and the FOB were both agreeable to. MOB reported feeling safe in her home and denied any previous or current domestic violence, unmanaged mental health issues either with herself or with the FOB, and also denied any concerns with any drug or alcohol abuse with either herself or the FOB. Safe Plan of Care for related to substance use: N/A PLAN: For MOB and baby to be discharged when medically ready. No other services requested or indicated. Denisa Rushing, PUFF IRONER, POLY PACKER AND HEAT SEALER
[2024-12-12 11:00] VITALS: BP 119/79; PULSE 79; RESP 16; TEMP 36.2; O2SAT 97
--- NOTE | 2024-12-12 12:33 | PCM.PN.OB ---
Subjective Subjective Doing well per patient and nursing staff. Ambulating and taking PO without difficulty. Voiding and passing flatus. Pain controlled. , services for assistance. Denies headache, visual changes, chest pain, shortness of breath, leg pain or increased bleeding. Lochia normal. Objective Data Objective Data Vital Signs: Vital Signs Temp Pulse Resp BP Pulse Ox O2 Del Method 97.1 F L 79 16 119/79 97 Room Air 12/12/24 11:00 12/12/24 11:00 12/12/24 11:00 12/12/24 11:00 12/12/24 11:00 12/12/24 11:00 Oxygen Delivery Method Room Air Weight: 217 lb Body Mass Index (BMI) 35.0 Intake & Output: Intake and Output for Last 24 Hours 12/10/24 12/11/24 12/12/24 23:59 23:59 23:59 Intake Total 3370.57 / 3370.57 100 / 100 Output Total 1400 / 1400 450 / 450 Balance 1970.57 / 1970.57 -350 / -350 Lab / Micro Data 12/11/24 06:00 ROS Constitutional Constitutional: Reports systems reviewed and no addt'l complaints, except as documented; Denies headache(s) Eyes Eyes: Denies acute decrease in peripheral vision, blurry vision or change in vision ENT HEENT: Reports systems reviewed and no addt'l complaints, except as documented Cardiovascular Cardiovascular: Denies chest pain or dizziness Respiratory/Chest Respiratory/Chest: Denies cough, dyspnea, dyspnea on exertion, shortness of breath at rest or shortness of breath with exertion Gastrointestinal Gastrointestinal: Denies abdominal pain, diarrhea, nausea or vomiting Genitourinary Genitourinary: Denies abdominal discomfort Musculoskeletal Musculoskeletal: Denies limited range of motion Integumentary Integumentary: Reports systems reviewed and no addt'l complaints, except as documented Neurologic Neurologic: Reports systems reviewed and no addt'l complaints, except as documented Psychiatric Psychiatric: Reports systems reviewed and no addt'l complaints, except as documented Endocrine Endocrinology: Reports systems reviewed and no addt'l complaints, except as documented Hematologic/Lymphatic Hematologic/Lymphatic: Reports systems reviewed and no addt'l complaints, except as documented Allergic/Immunologic Allergic/Immunologic: Reports systems reviewed and no addt'l complaints, except as documented Physical Exam Const alert and oriented x3 General Appearance: cooperative Orientation / Consciousness: awake, oriented to person, oriented to place and oriented to time Exam Limitations: no limitations HEENT normocephalic Head and Scalp: normal to inspection, normocephalic and atraumatic Face and Sinus: normal facial exam Eyes General Eye: normal appearance of both eyes Neck full ROM Chest Chest: symmetrical chest wall rise Resp normal respiratory effort and normal air movement Auscultation: clear to auscultation bilaterally Cardio regular rate, regular rhythm, S1 normal heart sound, S2 normal heart sound, no murmurs, no rub, no gallops and no clicks GI normal to inspection, nondistended, normoactive bowel sounds and non-tender GI Narrative: Fundus firm 2 below U appearance of the vagina normal Narrative: Normal lochia rubra Bladder / Kidney Exam: no CVA tenderness Back/Spine normal ROM Extremity normal to inspection and full ROM Skin no rashes or lesions noted Neuro oriented x3, CN's II-XII intact bilaterally and moves all extremities Sensorium / Orientation: awake, alert and oriented to person Motor Exam: clonus absent Deep Tendon Reflexes: Rt Patellar (L4): 2+ and Lt Patellar (L4): 2+ Assessment & Plan (1) Postoperative pain: (2) fever: (3) Delivery by section: PLAN: Plan 1) Routine care, POD #2 2) Vitals signs stable 3) Pain controlled 4) , services PRN 5) D/C home 6) Follow up in 1 weeks and 6 weeks
== END 2024-12-12 13:15 | disposition home or self-care (01) | DRG 788 ==
LOC: WPOUT 08:30 → WP 12-10 12:37
PROVIDERS: Advanced Practice Midwife; Admitting Provider Obstetrics & Gynecology; PCP Registered Nurse; Referring Provider Obstetrics & Gynecology; Visit Provider Obstetrics & Gynecology
DX: O42.02 Full-term premature rupture of membranes, onset of labor within 24 hours of rupture (principal); O99.214 Obesity complicating childbirth; F32.A Depression, unspecified; F41.9 Anxiety disorder, unspecified; O76 Abnormality in fetal heart rate and rhythm complicating labor and delivery; Z37.0 Single live birth; O99.344 Other mental disorders complicating childbirth; O77.0 Labor and delivery complicated by meconium in amniotic fluid; O32.1XX0 Maternal care for breech presentation, not applicable or unspecified; O99.893 Other specified diseases and conditions complicating puerperium; R50.82 Postprocedural fever; Z3A.39 39 weeks gestation of pregnancy; Z79.899 Other long term (current) drug therapy
CPT/HCPCS: 59025; 59050; 84112; 85025; 85027; 86780; 86850; 86900; 86901; 99221; A4216; G0378; J2405